=== PATIENT | female | born 1935 | race Caucasian/White ===

== ENCOUNTER → 2016-04-15 | Day surgery (SDC) | payer OTHER ==
[2016-04-11 07:54] VITALS: Ht 149.9 cm; Wt 85.5 kg
[~2016-04-15] VITALS: Ht 149.9 cm; Wt 85.5 kg
[~2016-04-15] MED LIST: ACET500C6 PO; ALBUAER2 INH; ASCO500T3 PO; ASPI81TA28 PO; ATOR-22 PO; ATROPINE SULFATE 0.1 MG/ML 5ML SYR IV PRN; CHOL400C7 PO; CRD4 PO; DILT-117 PO; DOCU100C PO; EpHEDrine SULFATE INJ 50 MG/ML AMP IV PRN; FENTANYL CITRATE INJ 50 MCG/1 ML 2 ML VIAL ONE; HYDC25 PO; LACTATED RINGER'S 1000ML 1,000 ML IV SCH; LEVAAER2 INH; LEVO150T9 PO; LIDOCAINE HCL 1% 20 ML VIAL ONE; LORA0.5T12 PO; MIDAZOLAM HCL 1 MG/ML 2ML VIAL ONE; MULT-190 PO; MULTTAB5 PO; OMEG10007 PO; POTA10CA28 PO; SERT50TA PO
--- NOTE | 2016-04-15 10:30 | History & Physical Bridge - SC ---
H&P Re-Evaluation Bridge Note: I have examined the patient, reviewed the History & Physical and in the interval since the performance of the History & Physical I have noted the following changes of clinical significance: No changes noted
--- NOTE | 2016-04-15 11:35 | Discharge Instructions ---
Discharge Instructions Visit Reason for Visit: Sacroiliitis Discharge Discharge Diagnosis / Problem: low back pain Discharge Goals Goal(s): Decrease discomfort, Improve function Medications Stopped Medications Name(s): ASA last dose Monday Activity Recommendations Activity Limitations: resume your previous activity Anesthesia . Post Anesthesia Instructions: If you have had General Anesthesia or IV Sedation: * Do not drive today. * Resume driving when surgeon permits. * Do not make important decisions or sign legal documents today. * Call surgeon for: 1. Temperature elevations greater than 101 degrees F. 2. Uncontrollable pain. 3. Excessive bleeding. 4. Persistent nausea and vomiting. 5. Medication intolerance (nausea, vomiting or rash). * For nausea and vomiting use only clear liquids such as: tea, soda, bouillon until nausea subsides, then gradually increase diet as tolerated. * If you have any concerns or questions, call your surgeon's office. If physician is unavailable and it is an emergency, call 911 or go to the nearest emergency room. . Diet Recommendations Recommended Home Diet: resume previous diet Procedures Procedures Performed: Right Sacroiliac Cooled Radio Frequency Denervation Pending Studies Studies pending at discharge: no Medical Emergencies . Who to Call and When: Medical Emergencies: If at any time you feel your situation is an emergency, please call 911 immediately. . Non-Emergent Contact Non-Emergency issues call your: Specialist . . "Provider Documentation" section prepared by Alexander Booker.
[2016-04-15 11:45] VITALS: TEMP 36.6
--- NOTE | 2016-04-15 11:57 | Anesthesia Progress Nt - [facility] ---
Anesthesia Post Op Note Date & Time Apr 15, 2016 at 11:56 Vital Signs Pain Intensity: 0 Vital Signs Past 12 Hours Date Time Temp Pulse Resp B/P Pulse Ox O2 Delivery O2 Flow Rate FiO2 04/15/16 11:45 36.6 58 16 167/70 94 Room Air 04/15/16 10:31 183/90 04/15/16 09:13 36.4 65 16 170/104 96 Room Air Notes Mental Status: alert / awake / arousable, participated in evaluation Pt Amnestic to Procedure: Yes Nausea / Vomiting: adequately controlled Pain: adequately controlled Airway Patency, RR, SpO2: stable & adequate BP & HR: stable & adequate Hydration State: stable & adequate Anesthetic Complications: no major complications apparent
[2016-04-15 12:04] VITALS: BP 144/72; PULSE 62; O2SAT 99
--- NOTE | 2016-04-15 12:14 | OPERATIVE REPORT ---
DATE OF OPERATION: 04/25/2016 PREOPERATIVE DIAGNOSIS: Right sacroiliitis, history of a lumbar fusion L5 through S1. POSTOPERATIVE DIAGNOSIS: Same. PROCEDURE: Right sacroiliac joint cooled denervation procedure under fluoroscopic guidance. SURGEON: Dr. Alexander Booker. INDICATIONS: The patient is an 81-year-old white female who receives sacroiliac joint cooled denervations with great success. The last one was done in January more than a year ago. She reports that her pain is returning and is problematic to her and she presents today for a denervation procedure to provide her with relief of right-sided sacroiliac pain. PHYSICAL EXAMINATION: Pleasant female seated comfortably. She has point tenderness to palpation of her right SI joint. This is exacerbated with extension. She has normal motor and sensory examination with negative seated straight leg raises. CONSENT: Verbal and written consent was obtained from the patient and risks include but are not limited to abscess, allergic reaction, denervation. She wishes to proceed. PROCEDURE: The patient was taken back to the special procedures room of [facility]. She was maintained in a prone position. Backside was cleansed with Betadine x3 and a dry sterile dressing was applied. Fluoroscope was used to identify the right sacroiliac joint. It was actually done in an oblique fashion to deal with the artifact of the fusion. She had conscious sedation throughout the procedure and was comfortable, was able to converse freely. Overlying skin of this S1 foramen was done with 3 mL of 1% lidocaine. A denervation needle was then placed contacting the right sacral ala. A total of 8 sites were done. The right sacral ala, the superior lateral aspect of S1, the lateral aspect of S1, the inferior lateral aspect of S1, the superior lateral aspect of S2, the lateral aspect of S2, the lateral inferior aspect of S2 and the superior lateral aspect of S3. These were all denervated 2 minutes and 30 seconds with cooled denervation well tolerated. Additional anesthetization was done on the last 2 as they were too inferior to be reached with the single needle as it was changed out during denervation 7 and 8. DISPOSITION: 1. The patient is taken out into the discharge recovery area where she will be discharged home once discharge criteria have been met. 2. Follow up in the [facility] office in 2-4 weeks. I attest to the content of the Intraoperative Record and any orders documented therein. Any exceptio ns are noted below.
== END | disposition home or self-care (01) ==
LOC: X.SURG 09:02
PROVIDERS: ATTEND Physical Medicine & Rehabilitation
DX: M46.1 Sacroiliitis, not elsewhere classified (principal); Z98.1 Arthrodesis status

== ENCOUNTER → 2016-05-27 | Outpatient (CLI) | payer OTHER ==
[~2016-05-27] MED LIST changes: -ATROPINE SULFATE 0.1 MG/ML 5ML SYR IV PRN; -EpHEDrine SULFATE INJ 50 MG/ML AMP IV PRN; -FENTANYL CITRATE INJ 50 MCG/1 ML 2 ML VIAL ONE; -LACTATED RINGER'S 1000ML 1,000 ML IV SCH; -LIDOCAINE HCL 1% 20 ML VIAL ONE; -MIDAZOLAM HCL 1 MG/ML 2ML VIAL ONE
[2016-05-27 13:45] LABS: ALT/SGPT 20 U/L (12-78); AST/SGOT 17 U/L (15-37); BLOOD UREA NITROGEN 43 mg/dl (7-18); BUN/CREATININE RATIO 28.3 (10-20); CALCIUM 9.7 mg/dl (8.5-10.1); CARBON DIOXIDE 31 mmol/L (21-32); CHLORIDE 102 mmol/L (98-107); GLUCOSE 75 mg/dl (70-99); POTASSIUM 4.2 mmol/L (3.5-5.1); SODIUM 141 mmol/L (136-145)
[2016-05-27 13:48] LABS: ALB/GLOB RATIO 1.1 (0.9-2); ALKALINE PHOSPHATASE 75 U/L (45-117)
== END | disposition home or self-care (01) ==
LOC: C.LAB 11:45
PROVIDERS: ATTEND Urology
DX: C64.9 Malignant neoplasm of unspecified kidney, except renal pelvis (principal)

== ENCOUNTER → 2016-05-30 | Outpatient (CLI) | payer OTHER ==
[2016-05-30 10:14] LABS: HEMATOCRIT 41.2 % (37-47); MEAN CELL VOLUME 87.7 fL (80-100); MEAN CORPUSCULAR HEMOGLOBIN 30.4 pg (25-34); MEAN CORPUSCULAR HGB CONC 34.7 g/dl (32-36); MEAN PLATELET VOLUME 10.2 fL (7.4-10.4); PLATELET COUNT 186 K/uL (130-400); WHITE BLOOD COUNT 7.85 K/uL (4.8-10.8)
[2016-05-30 10:23] LABS: ALT/SGPT 22 U/L (12-78); BLOOD UREA NITROGEN 34 mg/dl (7-18); BUN/CREATININE RATIO 22.9 (10-20); CARBON DIOXIDE 31 mmol/L (21-32); CHLORIDE 105 mmol/L (98-107); GLUCOSE 83 mg/dl (70-99); POTASSIUM 3.8 mmol/L (3.5-5.1); SODIUM 142 mmol/L (136-145)
[2016-05-30 10:26] LABS: CHOLESTEROL/HDL RATIO 3.7
[2016-05-30 10:34] LABS: ALB/GLOB RATIO 1.2 (0.9-2); ALKALINE PHOSPHATASE 68 U/L (45-117); AST/SGOT 13 U/L (15-37)
== END | disposition home or self-care (01) ==
LOC: C.LAB 09:20
PROVIDERS: ATTEND Internal Medicine Cardiovascular Disease
DX: E03.9 Hypothyroidism, unspecified (principal); E78.00 Pure hypercholesterolemia, unspecified; I10 Essential (primary) hypertension; R53.83 Other fatigue

== ENCOUNTER → 2016-05-31 | Outpatient (CLI) | payer OTHER ==
[2016-05-31 18:04] LABS: THYROID STIMULATING HORMONE 2.73 uIu/ml (0.300-4.500)
== END | disposition home or self-care (01) ==
LOC: C.LABBFT 14:45
PROVIDERS: ATTEND Physician Assistant Medical
DX: E03.9 Hypothyroidism, unspecified (principal)

== ENCOUNTER → 2016-06-14 | Outpatient (CLI) | payer OTHER ==
--- NOTE | 2016-06-14 09:11 | DIAGNOSTIC IMAGING REPORT ---
CHEST 2 VIEWS ROUTINE CLINICAL HISTORY: C64.9 Renal cell [id number] COMPARISON STUDY: 02/07/2015 FINDINGS: Chronic fibrotic change left base. Lungs otherwise are clear. Diaphragms are smooth. IMPRESSION: Chronic change. No acute process. Electronically signed by: Immanuel Bravo M.D. 06/14/2016 9:09 AM Dictated Date/Time: 06/14/2016 9:08 AM
--- NOTE | 2016-06-14 10:10 | DIAGNOSTIC IMAGING REPORT ---
MRI OF THE ABDOMEN WITHOUT IV CONTRAST CLINICAL HISTORY: Follow-up renal cell carcinoma. COMPARISON STUDY: Abdominal MRI dated 05/14/2014. Abdominal CT dated 05/08/2013. TECHNIQUE: MRI of the abdomen is performed transverse T1 and T2-weighted sequences in the axial and coronal planes. IV contrast was not administered for this examination. FINDINGS: Lower chest: Trace pleural effusions are identified. The heart is enlarged and without pericardial effusion. Liver: The liver is normal in size, contour, and signal intensity. Minimal central intrahepatic biliary ductal dilatation is identified. Gallbladder: Surgically absent. Spleen: Normal in size and signal intensity. Pancreas: Mildly atrophic an otherwise normal as imaged. Adrenal glands: Unremarkable. Kidneys: The left kidney is surgically absent. There is no evidence of recurrent or residual soft tissue lesion in the left renal fossa. The right kidney demonstrates cortical atrophy and is without hydronephrosis. There are numerous complex renal lesions measuring up to 2.4 cm. These are similar in appearance to prior studies and likely represent complex/hemorrhagic cysts. No nodular or soft tissue component is suspected. Abdominal aorta: Normal in course and caliber. Bowel: Visualized portions of the small bowel and colon show no evidence of obstruction. Peritoneum: There is no abdominal ascites. Lymphadenopathy: None. Skeletal structures: No destructive bony lesion is suspected. Fusion hardware is noted in the lumbar spine. IMPRESSION: 1. Status post left nephrectomy. There is no evidence of recurrent or metastatic disease in the abdomen. 2. Numerous complex right renal lesions are identified and are overall similar in appearance to the 05/14/2014 examination. Although incompletely characterized without IV contrast these likely represent complex/hemorrhagic cysts. 3. Cardiomegaly and trace pleural effusions. Electronically signed by: Brock Lou M.D. 06/14/2016 10:08 AM Dictated Date/Time: 06/14/2016 10:01 AM
== END | disposition home or self-care (01) ==
LOC: C.MRIBC 08:44
PROVIDERS: ATTEND Urology
DX: C64.9 Malignant neoplasm of unspecified kidney, except renal pelvis (principal); I51.7 Cardiomegaly

== ENCOUNTER → 2016-07-21 | Outpatient (CLI) | payer OTHER ==
--- NOTE | 2016-07-21 13:07 | MAMMOGRAPHY REPORT ---
BILATERAL DIGITAL SCREENING MAMMOGRAM WITH CAD: 07/21/2016 CLINICAL HISTORY: Routine screening. Patient has no complaints. TECHNIQUE: Current study was also evaluated with a Computer Aided Detection (CAD) system. Bilatera l CC and MLO views were obtained. COMPARISON: Comparison is made to exams dated: 07/17/2015 mammogram, 05/30/2014 mammogram, 03/29/2013 mammogram, 03/28/2012 mammogram, 03/23/2011 mammogram, and 03/22/2010 mammogram - [facility]. BREAST COMPOSITION: There are scattered areas of fibroglandular density in both breasts. FINDINGS: No suspicious masses, calcifications, or areas of architectural distortion are noted in e ither breast. There has been no significant interval change compared to prior exams. Scattered bilat eral benign-appearing calcifications are not significantly changed. Bilateral asymmetries are stabl e. IMPRESSION: ACR BI-RADS CATEGORY 2: BENIGN There is no mammographic evidence of malignancy. A 1 year screening mammogram is recommended. The p atient will receive written notification of the results. Approximately 10% of breast cancers are not detected with mammography. A negative mammographic repor t should not delay biopsy if a clinically suggestive mass is present. Laya Coley M.D. /:07/21/2016 12:23:30 Tool Builder: Grace GOMEZ)(M), [facility] letter sent: Normal 1/2 BI-RADS Code: ACR BI-RADS Category 2: Benign
== END | disposition home or self-care (01) ==
LOC: C.MAMM 11:20
PROVIDERS: ATTEND Internal Medicine
DX: Z12.31 Encounter for screening mammogram for malignant neoplasm of breast (principal)

== ENCOUNTER → 2016-08-04 | Outpatient (CLI) | payer OTHER ==
[2016-08-04 17:49] LABS: URINE APPEARANCE CLOUDY (CLEAR); URINE BILIRUBIN NEG (NEG); URINE COLOR DK YELLOW; URINE EPITHELIAL CELL AUTO >30 /lpf (0-5); URINE NITRITE POS (NEG); URINE PH 5.5 (4.5-7.5); URINE SPECIFIC GRAVITY 1.021 (1.000-1.030); UROBILINOGEN NEG (NEG)
[2016-08-04 17:51] LABS: MANUAL MICROSCOPIC REQUIRED? NO; REVIEW REQ? NO
== END | disposition home or self-care (01) ==
LOC: C.LABBFT 15:12
PROVIDERS: ATTEND Physician Assistant Medical
DX: R39.9 Unspecified symptoms and signs involving the genitourinary system (principal); N39.0 Urinary tract infection, site not specified

== ENCOUNTER → 2016-08-15 | Day surgery (SDC) | payer OTHER ==
[2016-08-05 09:16] VITALS: Ht 149.9 cm; Wt 85.5 kg
[~2016-08-15] VITALS: Ht 149.9 cm; Wt 85.5 kg
[~2016-08-15] MED LIST changes: +500ML BSS 0.3ML EPI 1:1000PF IRRIG ONE; +ACETAMINOPHEN 325 MG TAB PO PRN; +AMVISC PLUS 0.8ML SYRINGE INT OCU ONE; +ATROPINE SULFATE 0.1 MG/ML 5ML SYR IV PRN; +BRIMONIDINE TART 0.2% OP SOLN PER DROP CHARGE ONE; +BSS FLUSH ONE; +ENDOCOAT 0.85ML SYRINGE INT OCU ONE; +EpHEDrine SULFATE INJ 50 MG/ML AMP IV PRN; +EpINEphrine INJ 1MG/ML AMP 1 MG/ML AMP ONE; +HydrALAZINE HCL 20 MG/ML VIAL ONE; +LACTATED RINGER'S 1000ML 500 ML IV SCH; +LIDOCAINE 4% OP SOLN DROP CHARGE ONE; +LIDOCAINE 4% OP SOLN DROP CHARGE OPR SCH; +LIDOCAINE HCL 1% MPF 2 ML VIAL ONE; +MIDAZOLAM HCL 1 MG/ML 2ML VIAL ONE; +MOXIFLOXACIN OPH SOLN PER DROP CHARGE ONE; +POVIDONE-IODINE OP SOLN 30 ML BTL ONE; +PROPARACAINE 0.5% OP SOLN PER DROP CHARGE OPR SCH; +TOBRAMYCIN/DEXAMETHASONE OPH OINT PER APPLN CHARGE ONE
[2016-08-15] MEDS: PHENYLEPHRINE HCL 2.5% OP SOLN PER DROP CHARGE OPR SCH ×2 (08:45→08:51)
[2016-08-15] MEDS: TROPICAMIDE 1% OP SOLN PER DROP CHARGE OPR SCH ×2 (08:47→08:53)
[2016-08-15] MEDS: CYCLOPENTOLATE HCL 1% OP SOLN PER DROP CHARGE OPR SCH ×2 (08:48→08:54)
[2016-08-15] MEDS: KETOROLAC 0.5% OP SOLN PER DROP CHARGE OPR SCH ×2 (08:50→08:56)
[2016-08-15] MEDS: MOXIFLOXACIN OPH SOLN PER DROP CHARGE OPR SCH ×2 (08:51→09:07)
--- NOTE | 2016-08-15 10:14 | [facility] Post Operative Brief Note ---
Immediate Operative Summary Operative Date Aug 15, 2016. Pre-Operative Diagnosis Cataract right eye Post-Operative Diagnosis same Procedure(s) Performed Right Cataract Phacoemulsification With Intraocular Lens Implant Surgeon Dr Us Aquatics Instructor Surgeon(s) 0 Estimated Blood Loss 0 Findings cataract right eye Specimens 0 Complication(s) None Disposition Recovery Room / PACU
--- NOTE | 2016-08-15 10:14 | Discharge Instructions-SurgCtr ---
Discharge Instructions Date of Service Aug 15, 2016. Visit Reason for Visit: Right Cataract Discharge Discharge Diagnosis / Problem: cataract right eye Discharge Goals Goal(s): Improve function Activity Recommendations Activity Limitations: per Instructions/Follow-up section Lifting Limitations: no more than 5 pounds Anesthesia . Post Anesthesia Instructions: If you have had General Anesthesia or IV Sedation: * Do not drive today. * Resume driving when surgeon permits. * Do not make important decisions or sign legal documents today. * Call surgeon for: 1. Temperature elevations greater than 101 degrees F. 2. Uncontrollable pain. 3. Excessive bleeding. 4. Persistent nausea and vomiting. 5. Medication intolerance (nausea, vomiting or rash). * For nausea and vomiting use only clear liquids such as: tea, soda, bouillon until nausea subsides, then gradually increase diet as tolerated. * If you have any concerns or questions, call your surgeon's office. If physician is unavailable and it is an emergency, call 911 or go to the nearest emergency room. . Instructions / Follow-Up Instructions / Follow-Up ACTIVITY RECOMMENDATIONS: * Light activities * You may walk outside, read, watch television. * Mild irritation and blurred vision are common for the first few days, redness around the white part of the eye is common. MEDICATIONS: Resume previous medications unless instructed otherwise by your surgeon. Eye drops (today and tomorrow): Cipro - one drop in operative eye every 2 hours while awake Prednisolone 1% - one drop in operative eye every 2 hours while awake Bromfenac - one drop in operative eye once daily SPECIAL CARE INSTRUCTIONS: * If any problems or concerns, please call Dr. Us's office at . * Keep plastic shield taped over eye to sleep at night. * Keep plastic shield taped over eye except to administer eye drops. * Keep plastic shield on until office visit the following day. FOLLOW UP VISIT: Follow-up with Dr. Us in the [place] office as scheduled. If not already scheduled, please call the office at . Diet Recommendations Home Diet: resume previous diet Procedures Procedures Performed: Right Cataract Phacoemulsification With Intraocular Lens Implant Pending Studies Studies pending at discharge: no Medical Emergencies . Who to Call and When: Medical Emergencies: If at any time you feel your situation is an emergency, please call 911 immediately. . Non-Emergent Contact Non-Emergency issues call your: Toe Pounder . . "Provider Documentation" section prepared by Isai Us. .
[2016-08-15 10:16] VITALS: TEMP 37
--- NOTE | 2016-08-15 10:22 | OPERATIVE REPORT ---
DATE OF OPERATION: 08/15/2016 PREOPERATIVE DIAGNOSIS: Cataract, right eye. POSTOPERATIVE DIAGNOSIS: Cataract, right eye. PROCEDURE: Phacoemulsification cataract extraction with intraocular lens placement, right eye. SURGEON: Dr. Us. COMPLICATIONS: None. ESTIMATED BLOOD LOSS: None. ANESTHESIA: Topical with sedation. OPERATION AND FINDINGS: After informed consent was obtained in the holding area the patient was wheeled back to the Operating Room where cardiac monitoring leads and oxygen by nasal cannula was administered by Anesthesia. Gentle IV sedation was given, and the patient's right eye was prepped and draped in usual sterile fashion. A wire lid speculum was placed into the right eye and the operating microscope was swung into position. Using 0.12 forceps and a Supersharp blade a paracentesis port was made 3 o'clock hours away from the 9 o'clock position of patient's right eye. 1% non-preserved Lidocaine was then injected into the anterior chamber for anesthesia. A 2.2 mm keratotome blade was then used to make a shelved clear corneal incision at the 9 o'clock position of her right eye. Amvisc was injected into the anterior chamber and a cystotome and Utrata forceps were used to perform a curvilinear capsulorrhexis. BSS on a hydrodissection cannula was used to hydrodissect the lens nucleus away from the capsular bag. The phacoemulsification handpiece was then used in a stop and chop fashion to remove the lens nucleus. The irrigation and aspiration handpiece was then used to remove the residual cortical material. Amvisc was injected into the capsular bag and anterior chamber and a Bausch & Lomb MX60, 21.5 Diopter intraocular lens was injected into the capsular bag. Irrigation and aspiration handpiece was used to remove the residual viscoelastic material. The wounds were hydrated and noted to be watertight. The wire lid speculum was removed from the eye. Vigamox, Brimonidine, and TobraDex ointment were placed on the eye and it was shielded. It should be noted that EndoCoat was used during the case to protect the cornea endothelium. DISPOSITION: The patient tolerated the procedure well and was wheeled to the post anesthesia care unit in stable condition. I attest to the content of the Intraoperative Record and any orders documented therein. Any exceptions are noted below. I attest to the content of the Intraoperative Record and any orders documented therein. Any exception s are noted below.
--- NOTE | 2016-08-15 10:26 | Anesthesia Progress Nt - [facility] ---
Anesthesia Post Op Note Date & Time Aug 15, 2016 at 10:25 Vital Signs Pain Intensity: 0 Vital Signs Past 12 Hours Date Time Temp Pulse Resp B/P (MAP) Pulse Ox O2 Delivery O2 Flow Rate FiO2 08/15/16 10:16 37.0 62 16 168/83 (111) 93 Room Air 08/15/16 08:42 184/102 (129) 08/15/16 08:34 36.4 60 18 204/117 (146) 94 Room Air Notes Mental Status: alert / awake / arousable, participated in evaluation Pt Amnestic to Procedure: Yes Nausea / Vomiting: adequately controlled Pain: adequately controlled Airway Patency, RR, SpO2: stable & adequate BP & HR: stable & adequate Hydration State: stable & adequate Anesthetic Complications: no major complications apparent
[2016-08-15 10:32] VITALS: BP 167/88; PULSE 57; O2SAT 92
== END | disposition home or self-care (01) ==
LOC: X.SURG 08:21
PROVIDERS: ATTEND Ophthalmology
DX: H26.9 Unspecified cataract (principal); I12.9 Hypertensive chronic kidney disease with stage 1 through stage 4 chronic kidney disease, or unspecified chronic kidney disease; N18.9 Chronic kidney disease, unspecified; E66.9 Obesity, unspecified; Z88.2 Allergy status to sulfonamides; Z88.1 Allergy status to other antibiotic agents; J45.909 Unspecified asthma, uncomplicated; Z68.43 Body mass index [BMI] 50.0-59.9, adult; Z90.89 Acquired absence of other organs; Z90.710 Acquired absence of both cervix and uterus; Z98.890 Other specified postprocedural states; Z96.653 Presence of artificial knee joint, bilateral; Z85.528 Personal history of other malignant neoplasm of kidney

== ENCOUNTER → 2016-08-29 | Day surgery (SDC) | payer OTHER ==
[2016-08-25 07:49] VITALS: Ht 149.9 cm; Wt 85.5 kg
[~2016-08-29] VITALS: Ht 149.9 cm; Wt 85.5 kg
[~2016-08-29] MED LIST changes: -HydrALAZINE HCL 20 MG/ML VIAL ONE; +LIDOCAINE 4% OP SOLN DROP CHARGE OPL SCH; -LIDOCAINE 4% OP SOLN DROP CHARGE OPR SCH; +PROPARACAINE 0.5% OP SOLN PER DROP CHARGE OPL SCH; -PROPARACAINE 0.5% OP SOLN PER DROP CHARGE OPR SCH
[2016-08-29] MEDS: PHENYLEPHRINE HCL 2.5% OP SOLN PER DROP CHARGE OPL SCH ×2 (08:42→08:46)
[2016-08-29] MEDS: TROPICAMIDE 1% OP SOLN PER DROP CHARGE OPL SCH ×2 (08:43→08:48)
[2016-08-29] MEDS: CYCLOPENTOLATE HCL 1% OP SOLN PER DROP CHARGE OPL SCH ×2 (08:43→08:49)
[2016-08-29] MEDS: MOXIFLOXACIN OPH SOLN PER DROP CHARGE OPL SCH ×2 (08:45→08:51)
[2016-08-29] MEDS: KETOROLAC 0.5% OP SOLN PER DROP CHARGE OPL SCH ×2 (08:45→08:50)
--- NOTE | 2016-08-29 10:01 | Discharge Instructions-SurgCtr ---
Discharge Instructions Date of Service Aug 29, 2016. Visit Reason for Visit: Cataract Left Eye Discharge Discharge Diagnosis / Problem: cataract left eye Discharge Goals Goal(s): Improve function Activity Recommendations Activity Limitations: per Instructions/Follow-up section Lifting Limitations: no more than 5 pounds Anesthesia . Post Anesthesia Instructions: If you have had General Anesthesia or IV Sedation: * Do not drive today. * Resume driving when surgeon permits. * Do not make important decisions or sign legal documents today. * Call surgeon for: 1. Temperature elevations greater than 101 degrees F. 2. Uncontrollable pain. 3. Excessive bleeding. 4. Persistent nausea and vomiting. 5. Medication intolerance (nausea, vomiting or rash). * For nausea and vomiting use only clear liquids such as: tea, soda, bouillon until nausea subsides, then gradually increase diet as tolerated. * If you have any concerns or questions, call your surgeon's office. If physician is unavailable and it is an emergency, call 911 or go to the nearest emergency room. . Instructions / Follow-Up Instructions / Follow-Up ACTIVITY RECOMMENDATIONS: * Light activities * You may walk outside, read, watch television. * Mild irritation and blurred vision are common for the first few days, redness around the white part of the eye is common. MEDICATIONS: Resume previous medications unless instructed otherwise by your surgeon. Eye drops (today and tomorrow): Cipro - one drop in operative eye every 2 hours while awake Prednisolone 1% - one drop in operative eye every 2 hours while awake Bromfenac - one drop in operative eye once daily SPECIAL CARE INSTRUCTIONS: * If any problems or concerns, please call Dr. Us's office at . * Keep plastic shield taped over eye to sleep at night. * Keep plastic shield taped over eye except to administer eye drops. * Keep plastic shield on until office visit the following day. FOLLOW UP VISIT: Follow-up with Dr. Us in the [place] office as scheduled. If not already scheduled, please call the office at . Diet Recommendations Home Diet: resume previous diet Procedures Procedures Performed: Left Cataract Phacoemulsification With Intraocular Lens Implant Pending Studies Studies pending at discharge: no Medical Emergencies . Who to Call and When: Medical Emergencies: If at any time you feel your situation is an emergency, please call 911 immediately. . Non-Emergent Contact Non-Emergency issues call your: Chief Construction Inspector . . "Provider Documentation" section prepared by Isai Us. .
--- NOTE | 2016-08-29 10:01 | [facility] Post Operative Brief Note ---
Immediate Operative Summary Operative Date Aug 29, 2016. Pre-Operative Diagnosis Cataract Left Eye Post-Operative Diagnosis Same Procedure(s) Performed Left Cataract Phacoemulsification With Intraocular Lens Implant Surgeon Dr. Us Java Lead Architect Surgeon(s) None Estimated Blood Loss 0 Findings cataract left eye Specimens 0 Complication(s) None Disposition Recovery Room / PACU
[2016-08-29 10:15] VITALS: TEMP 36.5
[2016-08-29 10:26] VITALS: BP 173/85; PULSE 57; O2SAT 95
--- NOTE | 2016-08-29 10:28 | Anesthesia Progress Nt - [facility] ---
Anesthesia Post Op Note Date & Time Aug 29, 2016 at 10:28 Vital Signs Pain Intensity: 0 Vital Signs Past 12 Hours Date Time Temp Pulse Resp B/P (MAP) Pulse Ox O2 Delivery O2 Flow Rate FiO2 08/29/16 10:15 36.5 60 16 176/90 (118) 94 Room Air 08/29/16 08:32 36.4 63 18 181/103 (129) 93 Room Air Notes Mental Status: alert / awake / arousable, participated in evaluation Pt Amnestic to Procedure: Yes Nausea / Vomiting: adequately controlled Pain: adequately controlled Airway Patency, RR, SpO2: stable & adequate BP & HR: stable & adequate Hydration State: stable & adequate Anesthetic Complications: no major complications apparent
--- NOTE | 2016-08-29 10:38 | OPERATIVE REPORT ---
DATE OF OPERATION: 08/29/2016 PREOPERATIVE DIAGNOSIS: Cataract, left eye. POSTOPERATIVE DIAGNOSIS: Cataract, left eye. PROCEDURE: Phacoemulsification cataract extraction with intraocular lens placement, left eye. SURGEON: Dr. Us. COMPLICATIONS: None. ESTIMATED BLOOD LOSS: None. ANESTHESIA: Topical with sedation. OPERATION AND FINDINGS: After informed consent was obtained in the holding area the patient was wheeled back to the Operating Room where cardiac monitoring leads and oxygen by nasal cannula was administered by Anesthesia. Gentle IV sedation was given, and the patient's left eye was prepped and draped in usual sterile fashion. A wire lid speculum was placed into the left eye and the operating microscope was swung into position. Using 0.12 forceps and a Supersharp blade a paracentesis port was made 3 o'clock hours away from the 3 o'clock position of patient's left eye. 1% non-preserved Lidocaine was then injected into the anterior chamber for anesthesia. A 2.2 mm keratotome blade was then used to make a shelved clear corneal incision at the 3 o'clock position of her left eye. Amvisc was injected into the anterior chamber and a cystotome and Utrata forceps were used to perform a curvilinear capsulorrhexis. BSS on a hydrodissection cannula was used to hydrodissect the lens nucleus away from the capsular bag. The phacoemulsification handpiece was then used in a stop and chop fashion to remove the lens nucleus. The irrigation and aspiration handpiece was then used to remove the residual cortical material. Amvisc was injected into the capsular bag and anterior chamber and a Bausch & Lomb MX60 22.0 Diopter intraocular lens was injected into the capsular bag. Irrigation and aspiration handpiece was used to remove the residual viscoelastic material. The wounds were hydrated and noted to be watertight. The wire lid speculum was removed from the eye. Vigamox, Brimonidine, and TobraDex ointment were placed on the eye and it was shielded. It should be noted that EndoCoat was used during the case to protect the cornea endothelium. DISPOSITION: The patient tolerated the procedure well and was wheeled to the post anesthesia care unit in stable condition. I attest to the content of the Intraoperative Record and any orders documented therein. Any exceptions are noted below. I attest to the content of the Intraoperative Record and any orders documented therein. Any exception s are noted below.
== END | disposition home or self-care (01) ==
LOC: X.SURG 08:20
PROVIDERS: ATTEND Ophthalmology
DX: H25.12 Age-related nuclear cataract, left eye (principal); I10 Essential (primary) hypertension; E78.00 Pure hypercholesterolemia, unspecified; C64.9 Malignant neoplasm of unspecified kidney, except renal pelvis; J45.909 Unspecified asthma, uncomplicated; Z79.899 Other long term (current) drug therapy

== ENCOUNTER → 2016-10-13 | Outpatient (CLI) | payer OTHER ==
[~2016-10-13] MED LIST changes: -500ML BSS 0.3ML EPI 1:1000PF IRRIG ONE; -ACETAMINOPHEN 325 MG TAB PO PRN; -AMVISC PLUS 0.8ML SYRINGE INT OCU ONE; -ATROPINE SULFATE 0.1 MG/ML 5ML SYR IV PRN; -BRIMONIDINE TART 0.2% OP SOLN PER DROP CHARGE ONE; -BSS FLUSH ONE; -ENDOCOAT 0.85ML SYRINGE INT OCU ONE; -EpHEDrine SULFATE INJ 50 MG/ML AMP IV PRN; -EpINEphrine INJ 1MG/ML AMP 1 MG/ML AMP ONE; -LACTATED RINGER'S 1000ML 500 ML IV SCH; -LIDOCAINE 4% OP SOLN DROP CHARGE ONE; -LIDOCAINE 4% OP SOLN DROP CHARGE OPL SCH; -LIDOCAINE HCL 1% MPF 2 ML VIAL ONE; -MIDAZOLAM HCL 1 MG/ML 2ML VIAL ONE; -MOXIFLOXACIN OPH SOLN PER DROP CHARGE ONE; -POVIDONE-IODINE OP SOLN 30 ML BTL ONE; -PROPARACAINE 0.5% OP SOLN PER DROP CHARGE OPL SCH; -TOBRAMYCIN/DEXAMETHASONE OPH OINT PER APPLN CHARGE ONE
[2016-10-13 17:56] LABS: URINE APPEARANCE CLOUDY (CLEAR); URINE BILIRUBIN NEG (NEG); URINE COLOR DK YELLOW; URINE EPITHELIAL CELL AUTO >30 /lpf (0-5); URINE NITRITE NEG (NEG); URINE SPECIFIC GRAVITY 1.025 (1.000-1.030); UROBILINOGEN NEG (NEG)
[2016-10-13 17:59] LABS: MANUAL MICROSCOPIC REQUIRED? NO; REVIEW REQ? YES
== END | disposition home or self-care (01) ==
LOC: C.LABBFT 10:29
PROVIDERS: ATTEND Physician Assistant Medical
DX: R39.9 Unspecified symptoms and signs involving the genitourinary system (principal)

== ENCOUNTER → 2016-11-10 | Outpatient (CLI) | payer OTHER ==
[2016-11-10 12:38] LABS: MANUAL MICROSCOPIC REQUIRED? YES; URINE APPEARANCE CLOUDY (CLEAR); URINE BILIRUBIN NEG (NEG); URINE COLOR YELLOW; URINE NITRITE POS (NEG); URINE PH 6.5 (4.5-7.5); UROBILINOGEN NEG (NEG)
[2016-11-10 12:55] LABS: REVIEW REQ? NO
[2016-11-10 12:59] LABS: URINE BACTERIA 2+ (NEG); URINE WBC >30 /hpf (0-5)
[2016-11-10 13:03] LABS: URINE RBC 0-4 /hpf (0-4)
== END | disposition home or self-care (01) ==
LOC: C.LABBFT 08:25
PROVIDERS: ATTEND Physician Assistant Medical
DX: R39.9 Unspecified symptoms and signs involving the genitourinary system (principal)

== ENCOUNTER → 2016-12-23 | Outpatient (CLI) | payer OTHER | END | disposition home or self-care (01) | LOC: C.PAPS 14:22 | PROVIDERS: ATTEND Obstetrics & Gynecology | DX: Z01.419 Encounter for gynecological examination (general) (routine) without abnormal findings (principal) ==

== ENCOUNTER → 2017-01-11 | Outpatient (CLI) | payer OTHER ==
--- NOTE | 2017-01-11 11:58 | DIAGNOSTIC IMAGING REPORT ---
R SHOULDER MIN 2 VIEWS ROUTINE CLINICAL HISTORY: M25.511 pain COMPARISON: None. DISCUSSION: Moderate generalized degenerative changes acromioclavicular as well as glenohumeral joints. No evidence for fracture or dislocation. No abnormal soft tissue calcifications. Mild degenerative peripheral osteophytic reaction of the humeral head. There is no evidence for soft tissue swelling. IMPRESSION: Moderate degenerative change. No acute process. The above report was generated using voice recognition software. It may contain grammatical, syntax or spelling errors. Electronically signed by: Immanuel Bravo M.D. 01/11/2017 11:57 AM Dictated Date/Time: 01/11/2017 11:56 AM
== END | disposition home or self-care (01) ==
LOC: C.RAD1850 11:30
PROVIDERS: ATTEND Physician Assistant Medical
DX: M25.511 Pain in right shoulder (principal); M89.8X1 Other specified disorders of bone, shoulder

== ENCOUNTER → 2017-04-19 | Outpatient (CLI) | payer OTHER | END | disposition home or self-care (01) | LOC: C.LAB 16:56 | PROVIDERS: ATTEND Internal Medicine | DX: N39.0 Urinary tract infection, site not specified (principal) ==

== ENCOUNTER → 2017-04-28 | Outpatient (CLI) | payer OTHER ==
--- NOTE | 2017-04-28 13:01 | DIAGNOSTIC IMAGING REPORT ---
LUMBAR SPINE RADIOGRAPHS CLINICAL HISTORY: Back pain. COMPARISON: Lumbar spine CT August 21, 2014. FINDINGS: Mild levoscoliosis of the lumbar spine is noted. There is a posterior decompression. Lateral bone graft material is noted. There are bilateral pedicle screws at the L3, L4, L5 and S1 levels. Hardware is intact. There is marked disc space narrowing within multiple levels within the lumbar spine. No fracture or suspicious lesion is present. IMPRESSION: 1. No acute lumbar spine fracture or subluxation. 2. Status post L3-S1 bilateral pedicle screw fusion. 3. Severe multilevel disc space narrowing within the lower thoracic and upper lumbar spine. 4. Mild levoscoliosis of the lumbar spine. Electronically signed by: Stephen Whitehead M.D. 04/28/2017 1:00 PM Dictated Date/Time: 04/28/2017 12:58 PM
== END | disposition home or self-care (01) ==
LOC: C.RDSM 18:00
PROVIDERS: ATTEND Orthopaedic Surgery
DX: M51.25 Other intervertebral disc displacement, thoracolumbar region (principal); M54.9 Dorsalgia, unspecified; Z98.1 Arthrodesis status

== ENCOUNTER → 2017-06-14 | Day surgery (SDC) | payer OTHER ==
[2017-06-13 14:31] VITALS: Ht 149.9 cm; Wt 85.5 kg
[~2017-06-14] VITALS: Ht 149.9 cm; Wt 85.5 kg
[~2017-06-14] MED LIST changes: -ACET500C6 PO; -ALBUAER2 INH; +ATROPINE SULFATE 0.1 MG/ML 5ML SYR IV PRN; -CRD4 PO; +DOXA4TAB2 PO; +EpHEDrine SULFATE INJ 50 MG/ML AMP IV PRN; +FENTANYL CITRATE INJ 50 MCG/1 ML 2 ML VIAL ONE; -HYDC25 PO; +HYDR25TA4 PO; +LACTATED RINGER'S 1000ML 1,000 ML IV SCH; -LEVAAER2 INH; +LIDOCAINE HCL 1% 20 ML VIAL ONE; +MIDAZOLAM HCL 1 MG/ML 2ML VIAL ONE; +VNTHFA/IN INH
--- NOTE | 2017-06-14 09:44 | [facility] Post Operative Brief Note ---
Immediate Operative Summary Operative Date Jun 14, 2017. Pre-Operative Diagnosis Post laminectomy syndrome Sacroilitis Hisory fusion Post-Operative Diagnosis Same as pre-op Procedure(s) Performed Right Cooled Sacroiliac Joint Radio Frequency Denervation Surgeon Job Putter Up And Ticket Preparer Surgeon(s) None Estimated Blood Loss Zero Findings Consistent with Post-Op Diagnosis Specimens None Drains None Anesthesia Type MAC Complication(s) none Disposition Disposition:
--- NOTE | 2017-06-14 09:45 | Discharge Instructions ---
Discharge Instructions Date of Service Jun 14, 2017. Visit Reason for Visit: Post Laminectomy Syndrome, Sacroiliitis, Hx Fusion Discharge Discharge Diagnosis / Problem: low back pain Discharge Goals Goal(s): Decrease discomfort, Improve function Activity Recommendations Activity Limitations: resume your previous activity Anesthesia . Post Anesthesia Instructions: If you have had General Anesthesia or IV Sedation: * Do not drive today. * Resume driving when surgeon permits. * Do not make important decisions or sign legal documents today. * Call surgeon for: 1. Temperature elevations greater than 101 degrees F. 2. Uncontrollable pain. 3. Excessive bleeding. 4. Persistent nausea and vomiting. 5. Medication intolerance (nausea, vomiting or rash). * For nausea and vomiting use only clear liquids such as: tea, soda, bouillon until nausea subsides, then gradually increase diet as tolerated. * If you have any concerns or questions, call your surgeon's office. If physician is unavailable and it is an emergency, call 911 or go to the nearest emergency room. . Diet Recommendations Recommended Home Diet: resume previous diet Procedures Procedures Performed: Right Cooled Sacroiliac Joint Radio Frequency Denervation Pending Studies Studies pending at discharge: no Medical Emergencies . Who to Call and When: Medical Emergencies: If at any time you feel your situation is an emergency, please call 911 immediately. . Non-Emergent Contact Non-Emergency issues call your: Specialist . . "Provider Documentation" section prepared by Alexander Booker. .
--- NOTE | 2017-06-14 09:49 | Anesthesia Progress Nt - [facility] ---
Anesthesia Post Op Note Date & Time Jun 14, 2017 at 09:48 Vital Signs Pain Intensity: 2 Vital Signs Past 12 Hours Date Time Temp Pulse Resp B/P (MAP) Pulse Ox O2 Delivery O2 Flow Rate FiO2 06/14/17 08:47 184/77 (112) 06/14/17 08:18 36.7 60 18 173/100 (124) 95 Room Air Notes Mental Status: alert / awake / arousable, participated in evaluation Pt Amnestic to Procedure: Yes Nausea / Vomiting: adequately controlled Pain: adequately controlled Airway Patency, RR, SpO2: stable & adequate BP & HR: stable & adequate Hydration State: stable & adequate Anesthetic Complications: no major complications apparent
[2017-06-14 10:11] VITALS: BP 169/95; PULSE 55; O2SAT 93
--- NOTE | 2017-06-14 10:58 | OPERATIVE REPORT ---
DATE OF OPERATION: 06/14/2017 PREOPERATIVE DIAGNOSIS: L5-S1 fusion with underlying right sacroiliitis. POSTOPERATIVE DIAGNOSIS: L5-S1 fusion with underlying right sacroiliitis. PROCEDURE: Right sacroiliac cooled radiofrequency denervation. INDICATIONS: The patient is an 82-year-old white female who has responded very favorably to SI joint denervations in the past, last one was 14 months ago; however, the pain has started to return to be problematic to her and presents today for denervation. PHYSICAL EXAMINATION: Pleasant female seated comfortably in no apparent distress. Right SI joint was palpated and noted to be very tender, worse with extension. She has normal motor and sensory exam with a positive modified Antione maneuver. CONSENT: Verbal and written consent was obtained from the patient. Risks and benefits were reviewed. Risks include but are not limited to abscess and allergic reaction in cooled denervation. The patient wishes to proceed. PROCEDURE: The patient was taken back into the OR #1 of the [facility], where she was maintained in a prone position. She had conscious sedation throughout the procedure but was able to converse freely. Backside was cleansed with Betadine x3 and a dry sterile dressing was applied. Fluoroscope was used to identify the S1 foramen. Overlying skin lateral to the S1 foramen was anesthetized with 7 mL of lidocaine 1% with a 25 gauge 1.5-inch needle. The cooled needle was then placed at 8 different targets. The lateral aspect of S1, the superior lateral aspect of S1, the right sacral ala, the right inferior lateral aspect of S1, the right superior lateral aspect of S2, the lateral aspect of S2, and the lateral inferior aspect of S2, and lastly the superior lateral aspect of S3. Denervation for 2 minutes and 30 seconds, 60 degrees Celsius at each site. It was well tolerated. DISPOSITION: 1. The patient was taken back into the discharge area, where she will be discharged home once discharge criteria have been met. 2. Follow up in the [facility] office in 4 weeks' time. I attest to the content of the Intraoperative Record and any orders documented therein. Any exception s are noted below.
== END | disposition home or self-care (01) ==
LOC: X.SURG 06:47
PROVIDERS: ATTEND Physical Medicine & Rehabilitation
DX: M43.27 Fusion of spine, lumbosacral region (principal); M46.1 Sacroiliitis, not elsewhere classified; J45.909 Unspecified asthma, uncomplicated; Z79.82 Long term (current) use of aspirin; Z79.899 Other long term (current) drug therapy

== ENCOUNTER → 2017-07-11 | Outpatient (CLI) | payer OTHER ==
[~2017-07-11] MED LIST changes: -ATROPINE SULFATE 0.1 MG/ML 5ML SYR IV PRN; -EpHEDrine SULFATE INJ 50 MG/ML AMP IV PRN; -FENTANYL CITRATE INJ 50 MCG/1 ML 2 ML VIAL ONE; -LACTATED RINGER'S 1000ML 1,000 ML IV SCH; -LIDOCAINE HCL 1% 20 ML VIAL ONE; -MIDAZOLAM HCL 1 MG/ML 2ML VIAL ONE
[2017-07-11 12:29] LABS: BASO % 0.9 %; BASO ABS # 0.07 K/uL (0-0.2); EOS ABS # 0.31 K/uL (0-0.5); HEMATOCRIT 42.3 % (37-47); HEMOGLOBIN 14.2 g/dL (12.0-16.0); IG# 0.02 K/uL (0.00-0.02); LYMPH % 19.5 %; LYMPH ABS # 1.52 K/uL (1.2-3.4); MEAN CELL VOLUME 88.7 fL (80-100); MEAN CORPUSCULAR HEMOGLOBIN 29.8 pg (25-34); MEAN CORPUSCULAR HGB CONC 33.6 g/dl (32-36); MEAN PLATELET VOLUME 10.2 fL (7.4-10.4); MONO % 11.4 %; MONO ABS # 0.89 K/uL (0.11-0.59); NEUT % 63.9 %; PLATELET COUNT 181 K/uL (130-400); RED CELL DISTRIBUTION WIDTH CV 14.8 % (11.5-14.5); RED CELL DISTRIBUTION WIDTH SD 47.6 fL (36.4-46.3); WHITE BLOOD COUNT 7.81 K/uL (4.8-10.8)
[2017-07-11 13:00] LABS: ALBUMIN 3.8 gm/dl (3.4-5.0); BLOOD UREA NITROGEN 37 mg/dl (7-18); CALCIUM 9.3 mg/dl (8.5-10.1); CARBON DIOXIDE 31 mmol/L (21-32); CREATININE 1.52 mg/dl (0.60-1.20); GLUCOSE 90 mg/dl (70-99); PHOSPHORUS 3.1 mg/dl (2.5-4.9); POTASSIUM 4.1 mmol/L (3.5-5.1); SODIUM 140 mmol/L (136-145)
== END | disposition home or self-care (01) ==
LOC: C.LABBFT 10:08
PROVIDERS: ATTEND Internal Medicine Nephrology
DX: N18.3 Chronic kidney disease, stage 3 (moderate) (principal)

== ENCOUNTER → 2017-07-12 | Outpatient (CLI) | payer OTHER | END | disposition home or self-care (01) | LOC: C.LABBFT 11:09 | PROVIDERS: ATTEND Internal Medicine Nephrology | DX: N18.3 Chronic kidney disease, stage 3 (moderate) (principal) ==

== ENCOUNTER → 2017-07-18 | Outpatient (CLI) | payer OTHER | END | disposition home or self-care (01) | LOC: C.LABBFT 12:24 | PROVIDERS: ATTEND Internal Medicine | DX: E03.9 Hypothyroidism, unspecified (principal) ==

== ENCOUNTER → 2017-07-25 | Outpatient (CLI) | payer OTHER ==
--- NOTE | 2017-07-26 14:21 | MAMMOGRAPHY REPORT ---
BILATERAL DIGITAL SCREENING MAMMOGRAM TOMOSYNTHESIS WITH CAD: 07/25/2017 CLINICAL HISTORY: Routine screening examination. TECHNIQUE: Breast tomosynthesis in addition to standard 2D mammography was performed. Current study was also evaluated with a Computer Aided Detection (CAD) system. COMPARISON: Comparison is made to exams dated: 07/21/2016 mammogram, 07/17/2015 mammogram, 05/30/2014 m ammogram, 03/29/2013 mammogram, 03/28/2012 mammogram, and 03/23/2011 mammogram - [facility] enter. BREAST COMPOSITION: There are scattered areas of fibroglandular density in both breasts. FINDINGS: The exam is slightly suboptimal due to inability of the patient to adequately position. Wi thin this limitation, there are mild vascular calcifications bilaterally. Scattered benign rounded r im calcifications. No suspicious mass, architectural distortion or cluster of microcalcifications is seen. IMPRESSION: ACR BI-RADS CATEGORY 1: NEGATIVE There is no mammographic evidence of malignancy. A 1 year screening mammogram is recommended. The pa tient will receive written notification of the results. Approximately 10% of breast cancers are not detected with mammography. A negative mammographic report should not delay biopsy if a clinically suggestive mass is present. Veronica Pollock M.D. ay/:07/25/2017 19:23:59 Bulk Cooler Installer: Gena ROBERT(Sourav)([place]), [facility] letter sent: Normal 1/2 BI-RADS Code: ACR BI-RADS Category 1: Negative
== END | disposition home or self-care (01) ==
LOC: C.MAMM 10:26
PROVIDERS: ATTEND Internal Medicine
DX: Z12.31 Encounter for screening mammogram for malignant neoplasm of breast (principal)

== ENCOUNTER 2017-10-11 18:27 | Observation (INO) | payer OTHER ==
[~2017-10-11] VITALS: Ht 149.9 cm; Wt 85.7 kg
[2017-10-11] MEDS ORDERED: ASPIRIN 324 MG CHEW PO STA (18:51)
--- NOTE | 2017-10-11 18:58 | EMERGENCY ROOM VISIT NOTE ---
History Report prepared by Isabell: Kay Deleon Under the Supervision of: Dr. Kai Capellan M.D. First contact with patient: 18:37 Chief Complaint: CHEST PAIN Stated Complaint: CHEST PAIN,NAUSEA History of Present Illness The patient is an 82 year old white female with a past medical history of Afib, HTN, Hypothyroidism, who presents to the ED with a cc of chest pain beginning at 0430 this morning. Positive SOB, dry cough. Negative nausea, vomiting, diaphoresis, recent car or plane travel, or history of heart problems. She states her episode lasted about 45 minutes but it is resolved now. She notes she came to the ED now because she still is shaky and has some weakness. She describes her chest pain as left sided and a pressure. The patient notes that waking worsens her pain and lying down alleviates her chest pain. She reports she had 2 albuterol treatments today for her asthma and took her last one at 1600 today. She is accompanied by her daughter who states that her mother was seen by Dr. Coleman, [employer] yesterday and her bp [id number]. Source of History: patient, family (daughter) Onset: 0430 this morning Position: chest (left) Quality: pressure Timing: resolved Modifying Factors (Worsening): other (walking) Modifying Factors (Relieving): other (lying down) Associated Symptoms: + cough (dry), + SOB, + weakness, No diaphoresis, No nausea, No vomiting Note: Positive shakiness. Negative recent car or plane travel or history of heart problems Review of Systems See HPI for pertinent positives and negatives. A total of ten systems were reviewed and were otherwise negative. Past Medical & Surgical Medical Problems: (1) Asthma (2) Atrial fibrillation (3) Bronchopneumonia, organism unspecified (4) Hypertension (5) Hypothyroidism (6) Rheumatoid arthritis (7) Streptococcus infection (8) Tricuspid valve disease (9) Unspecified pleural effusion Surgical Problems: (1) H/O thyroidectomy Family History Insignificant due to advanced age Social History Smoking Status: Never Smoker Drug Use: none Marital Status: Housing Status: lives with significant other Occupation Status: retired Current/Historical Medications Scheduled Ascorbic Acid (Vitamin C), 1 TAB PO QAM Aspirin (Aspirin Ec), 81 MG PO QAM Atorvastatin (Lipitor), 20 MG PO HS Cholecalciferol (Vitamin D 400 Iu), 400 INTER.UNIT PO QAM Diltiazem Hcl Ext Rel (Tiazac), 300 MG PO QAM Docusate Sodium (Stool Softener), 1 CAPSULES PO BID Doxazosin Mesylate (Cardura), 4 MG PO BID Fish Oil ([place]-3), 1 CAP PO QAM Hydrochlorothiazide (Hctz), 25 MG PO QAM Levothyroxine Sodium (Levothyroxine Sodium), 150 MCG PO QAM Metoprolol Succinate (Metoprolol Succinate ER), 100 MG PO BID Multiple Vitamins W/ Minerals (Centrum), 1 TAB PO QAM Ocuvite Preservision (Ocuvite Preservision), 1 TAB PO BID Olmesartan Medoxomil (Olmesartan Medoxomil), 20 MG PO DAILY Potassium Chloride (Micro-K Ext Rel), 1 TAB PO BID Sertraline (Zoloft), 50 MG PO HS Scheduled PRN Albuterol Hfa (Ventolin Hfa), 2 PUFFS INH Q6H PRN for SOB/Wheezing Levalbuterol Hcl (Levalbuterol Hcl), 1 DOSE NEB Q4 PRN for SOB/Wheezing Lorazepam (Lorazepam), 1 TAB PO BID PRN for Anxiety Allergies Coded Allergies: BEE STING (Verified Allergy, Intermediate, HIVES, 06/14/17) Sulfa Antibiotics (Verified Allergy, Unknown, MOUTH SWELLED/HIVES TO SULFA DRUGS, 06/14/17) Nitrofurantoin (Verified Adverse Reaction, Severe, CAUSES HEPATITUS, ) Hydromorphone (Verified Adverse Reaction, Intermediate, HALLUCINATIONS, 01/21) Physical Exam Vital Signs Date Time Temp Pulse Resp B/P (MAP) Pulse Ox O2 Delivery O2 Flow Rate FiO2 10/11/17 19:56 78 18 173/93 94 Room Air 10/11/17 19:38 71 10/11/17 19:01 97 Room Air 10/11/17 19:01 Room Air 10/11/17 18:33 36.6 82 20 201/66 96 Room Air Physical Exam GENERAL: Awake, alert, well-appearing, NAD HENT: Normocephalic, atraumatic. EYES: Normal conjunctiva. Sclera non-icteric. PERRL. No anisocoria. NECK: Supple. No nuchal rigidity. FROM. RESPIRATORY: CTAB, no rhonchi, wheezing, crackles CARDIAC: RRR, Systolic ejection murmur ABDOMEN: Soft, NTND, BS+ MSK: No chest wall TTP, no LE swelling, asymmetry, erythema. Negative Homans sign. NEURO: GCS 15, CN 2-12 intact, moves all 4s on command SKIN: No rash or jaundice noted. Medical Decision & Procedures ER Provider Diagnostic Interpretation: Radiology results as stated below per my review and radiologist interpretation: CHEST ONE VIEW PORTABLE CLINICAL HISTORY: CHEST PAIN pain COMPARISON STUDY: 06/14/2016 FINDINGS: The bones soft tissues and hemidiaphragms are normal. The cardiomediastinal silhouette is normal. The lungs are clear. The pulmonary vasculature is normal. IMPRESSION: Negative chest. The above report was generated using voice recognition software. It may contain grammatical, syntax or spelling errors. Electronically signed by: Immanuel Bravo M.D. 10/11/2017 7:19 PM Laboratory Results 10/11/17 18:55 Red Blood Count 4.78, Mean Corpuscular Volume 88.9, Mean Corpuscular Hemoglobin 30.1, Mean Corpuscular Hemoglobin Concent 33.9, Mean Platelet Volume 9.6, Neutrophils (%) (Auto) 64.1, Lymphocytes (%) (Auto) 21.4, Monocytes (%) (Auto) 9.2, Eosinophils (%) (Auto) 4.5, Basophils (%) (Auto) 0.6, Neutrophils # (Auto) 5.18, Lymphocytes # (Auto) 1.73, Monocytes # (Auto) 0.74, Eosinophils # (Auto) 0.36, Basophils # (Auto) 0.05 10/11/17 18:55 Test 10/11/17 18:55 10/11/17 19:55 White Blood Count 8.08 K/uL (4.8-10.8) Red Blood Count 4.78 M/uL (4.2-5.4) Hemoglobin 14.4 g/dL (12.0-16.0) Hematocrit 42.5 % (37-47) Mean Corpuscular Volume 88.9 fL (80-100) Mean Corpuscular Hemoglobin 30.1 pg (25-34) Mean Corpuscular Hemoglobin Concent 33.9 g/dl (32-36) Platelet Count 166 K/uL (130-400) Mean Platelet Volume 9.6 fL (7.4-10.4) Neutrophils (%) (Auto) 64.1 % Lymphocytes (%) (Auto) 21.4 % Monocytes (%) (Auto) 9.2 % Eosinophils (%) (Auto) 4.5 % Basophils (%) (Auto) 0.6 % Neutrophils # (Auto) 5.18 K/uL (1.4-6.5) Lymphocytes # (Auto) 1.73 K/uL (1.2-3.4) Monocytes # (Auto) 0.74 K/uL (0.11-0.59) Eosinophils # (Auto) 0.36 K/uL (0-0.5) Basophils # (Auto) 0.05 K/uL (0-0.2) RDW Standard Deviation 46.8 fL (36.4-46.3) RDW Coefficient of Variation 14.3 % (11.5-14.5) Immature Granulocyte % (Auto) 0.2 % Immature Granulocyte # (Auto) 0.02 K/uL (0.00-0.02) Prothrombin Time 12.0 SECONDS (9.0-12.0) Prothromb Time International Ratio 1.1 (0.9-1.1) Activated Partial Thromboplast Time 27.2 SECONDS (21.0-31.0) Partial Thromboplastin Ratio 1.0 Anion Gap 9.0 mmol/L (3-11) Est Creatinine Clear Calc Drug Dose 30.3 ml/min Estimated GFR () 42.4 Estimated GFR (Non- 36.5 BUN/Creatinine Ratio 22.8 (10-20) Calcium Level 9.4 mg/dl (8.5-10.1) Total Bilirubin 0.6 mg/dl (0.2-1) Direct Bilirubin 0.2 mg/dl (0-0.2) Aspartate Amino Transf (AST/SGOT) 15 U/L (15-37) Alanine Aminotransferase (ALT/SGPT) 20 U/L (12-78) Alkaline Phosphatase 81 U/L (45-117) Troponin I 0.183 ng/ml (0-0.045) Pro-B-Type Natriuretic Peptide 948 pg/ml (0-1800) Total Protein 7.4 gm/dl (6.4-8.2) Albumin 3.8 gm/dl (3.4-5.0) Lipase 145 U/L (73-393) Thyroid Stimulating Hormone (TSH) 0.285 uIu/ml (0.300-4.500) Urine Color YELLOW Urine Appearance CLEAR (CLEAR) Urine pH 7.0 (4.5-7.5) Urine Specific [place] 1.009 (1.000-1.030) Urine Protein NEG (NEG) Urine Glucose (UA) NEG (NEG) Urine Ketones NEG (NEG) Urine Occult Blood NEG (NEG) Urine Nitrite NEG (NEG) Urine Bilirubin NEG (NEG) Urine Urobilinogen NEG (NEG) Urine Leukocyte Esterase SMALL (NEG) Urine WBC (Auto) 10-30 /hpf (0-5) Urine RBC (Auto) 0-4 /hpf (0-4) Urine Hyaline Casts (Auto) 0 /lpf (0-5) Urine Epithelial Cells (Auto) >30 /lpf (0-5) Urine Bacteria (Auto) 1+ (NEG) Laboratory results reviewed by me Medications Administered Medications (Trade) Dose Ordered Sig/Nixon Route Start Time Stop Time Status Last Admin Dose Admin Aspirin (Aspirin Chew) 324 mg NOW STAT PO 10/11/17 18:51 10/11/17 18:53 DC 10/11/17 19:06 324 MG ECG Per My Interpretation Indication: chest pain Rate (beats per minute): 88 Rhythm: normal sinus Findings: left axis deviation, other (normal intervals, questionable ST segment depression in the high lateral leads) Comparison ECG Date: 02/09/2015 Change: When compared to EKG from 02/09/2015, the ST segment in the high lateral lead is old ED Course 1842: The patient was evaluated in room C6. A complete history and physical exam was performed. 1943: Discussed the patient's case with Dr. Stratton, [facility] Hospitalist. The patient will be evaluated for further treatment and disposition. 1944: I checked on the patient at this time. The patient still has no chest pains at this time. 2104: I spoke to Dr. Cali, vice president of sales about the patient at this time. Medical Decision The patient is an 82 year old white female with a past medical history of Afib, HTN, Hypothyroidism, who presents to the ED with a cc of chest pain beginning at 0430 this morning. Positive SOB, dry cough. Negative nausea, vomiting, diaphoresis, recent car or plane travel, or history of heart problems. Nursing notes reviewed. Ancillary studies and prior records reviewed. Differential diagnosis: Etiologies such as cardiac ischemia, aortic dissection, pulmonary embolism, pneumonia, pneumothorax, musculoskeletal, infections, pericarditis, myocarditis , esophageal rupture, gastrointestinal, as well as others were entertained. Patient was seen and evaluated the bedside. Patient did complain of having what she describes some palpitations or racing heart around 430 this morning. This resolved around 5. Patient had persistent chest pains. Patient states that she does not have any active chest pain now it is typically left-sided and sharp. Nonradiating. Patient denies any prior history of DVT or PE. Patient does have chronic lower extremity edema she states but is unchanged. On exam the patient has no asymmetry that is notable and has a negative Homans sign and no evidence of any erythema or calf pain. Patient does not have any reproducible chest wall pain. Patient is not hypoxic, tachycardic, tachypneic, or hypotensive. Patient did have blood work completed along with EKG, troponin, chest x-ray. Patient's chest x-ray is unremarkable. The patient's blood work did show that she has an elevated troponin. She does have mild CKD. Given the patient's elevated troponin believe she would benefit from further evaluation and treatment at this time. Patient was already given a full dose aspirin. Given her lack of active chest pain no further treatment at this time especially given her lack of any EKG changes. Patient was advised to notify staff if she does have recurrence of chest pain. I did speak with the on-call hospitalist who agreed to further evaluate and treat the patient. Head Trauma GCS Score: 15 Medication Reconcilliation Current Medication List: was personally reviewed by me Blood Pressure Screening Patient's blood pressure: Elevated blood pressure Blood pressure disposition: Referred to PCP Consults Time Called: 1942 Consulting Physician: Dr. Stratton [facility] Hospitalist Returned Call: 1943 Discussed the patient's case with Dr. Stratton [facility] Hospitalist. The patient will be evaluated for further treatment and disposition. Impression Primary Impression: Atypical chest pain Additional Impression: CKD (chronic kidney disease) stage 3, GFR 30-59 ml/min Scribe Attestation The scribe's documentation has been prepared under my direction and personally reviewed by me in its entirety. I confirm that the note above accurately reflects all work, treatment, procedures, and medical decision making performed by me. Departure Information Dispostion Being Evaluated By Hospitalist (Dr. Stratton, [facility] Hospitalist) Referrals Amador Coleman M.D. (PCP) Patient Instructions My [facility] Problem Qualifiers
[2017-10-11 19:08] LABS: BASO % 0.6 %; BASO ABS # 0.05 K/uL (0-0.2); EOS % 4.5 %; EOS ABS # 0.36 K/uL (0-0.5); HEMATOCRIT 42.5 % (37-47); HEMOGLOBIN 14.4 g/dL (12.0-16.0); IG# 0.02 K/uL (0.00-0.02); LYMPH % 21.4 %; LYMPH ABS # 1.73 K/uL (1.2-3.4); MEAN CELL VOLUME 88.9 fL (80-100); MEAN CORPUSCULAR HEMOGLOBIN 30.1 pg (25-34); MEAN CORPUSCULAR HGB CONC 33.9 g/dl (32-36); MEAN PLATELET VOLUME 9.6 fL (7.4-10.4); MONO % 9.2 %; MONO ABS # 0.74 K/uL (0.11-0.59); NEUT % 64.1 %; NEUT ABS # 5.18 K/uL (1.4-6.5); PLATELET COUNT 166 K/uL (130-400); RED CELL DISTRIBUTION WIDTH CV 14.3 % (11.5-14.5); RED CELL DISTRIBUTION WIDTH SD 46.8 fL (36.4-46.3); WHITE BLOOD COUNT 8.08 K/uL (4.8-10.8)
[2017-10-11 19:20] LABS: INR 1.1 (0.9-1.1); PTT PATIENT 27.2 SECONDS (21.0-31.0)
--- NOTE | 2017-10-11 19:21 | DIAGNOSTIC IMAGING REPORT ---
CHEST ONE VIEW PORTABLE CLINICAL HISTORY: CHEST PAIN pain COMPARISON STUDY: 06/14/2016 FINDINGS: The bones soft tissues and hemidiaphragms are normal. The cardiomediastinal silhouette is normal. The lungs are clear. The pulmonary vasculature is normal. IMPRESSION: Negative chest. The above report was generated using voice recognition software. It may contain grammatical, syntax or spelling errors. Electronically signed by: Immanuel Bravo M.D. 10/11/2017 7:19 PM Dictated Date/Time: 10/11/2017 7:19 PM
[2017-10-11 19:31] LABS: ALBUMIN 3.8 gm/dl (3.4-5.0); CALCIUM 9.4 mg/dl (8.5-10.1); CREATININE 1.34 mg/dl (0.60-1.20); POTASSIUM 3.5 mmol/L (3.5-5.1); TOTAL PROTEIN 7.4 gm/dl (6.4-8.2)
[2017-10-11] MEDS ORDERED: OLME20TA26 PO (20:11)
[2017-10-11] MEDS ORDERED: LEVA1.258 NEB (20:11)
[2017-10-11] MEDS ORDERED: TPRSR/100 PO (20:13)
[2017-10-11] MEDS ORDERED: ACETAMINOPHEN 325 MG TAB PO PRN ×2 (20:30)
[2017-10-11] MEDS ORDERED: ALUMINUM/MAGNESIUM/SIMETH (MAALOX MAX) 30 ML UDC PO PRN (20:30)
[2017-10-11] MEDS ORDERED: LORAZEPAM 0.5 MG TAB PO PRN (20:30)
[2017-10-11] MEDS ORDERED: ONDANSETRON INJ 2 MG/ML 2 ML VIAL IV PRN (20:30)
[2017-10-11] MEDS ORDERED: POLYETHYLENE (MIRALAX) 17 GM PACK PO PRN (20:30)
[2017-10-11] MEDS ORDERED: MAGNESIUM HYDROXIDE SUSP 30 ML UDC PO PRN (20:30)
[2017-10-11] MEDS ORDERED: IV FLUIDS COMPLETED PRN (21:00)
--- NOTE | 2017-10-11 21:09 | History and Physical ---
History & Physical Date & Time of Service: Oct 11, 2017 at 20:43 Chief Complaint: Chest Pain,Nausea Primary Care Physician: Amador Coleman M.D. History of Present Illness Source: patient, hospital records Patient is a 82 year old female with a PMH of HTN, renal cell carcinoma s/p nephrectomy, Asthma, CKD, Hypothyroidism and HLD that presented to [facility] with chest pain and palpitations. She notes that her chest pain started at 4am this morning and woke her from her sleep. It is located underneath her left breast. It is a dull pain that is constant. The chest pain is not made worse with ambulation. The chest pain is associated with palpitations. Both the chest pain and the palpitations have been improving since 4 am this morning. She has been more short of breath over the last week and has been using her albuterol inhaler 2-3 times a day. Last week she was using her albuterol nebulizer every 4 hours after taking instructions from her door and arrival attendant. She has also had a dry cough. She has a history of asthma and follows with [facility] Pulmonology. She is not on a steroid inhaler. The patient also notes that she has been doing a lot more work around the house lately and has been doing a lot of lifting and cleaning. She denies any calf pain, fevers, chills, decreased appetite, recent long haul travel, nausea, vomiting, diarrhea or urinary issues. Past Medical/Surgical History Medical Problems: (1) Asthma (2) Atrial fibrillation (3) Bronchopneumonia, organism unspecified (4) Calcium channel christoph overdose (5) Hypertension (6) Hypothyroidism (7) Left Knee DJD (8) Rheumatoid arthritis (9) Streptococcus infection (10) Tricuspid valve disease (11) Unspecified pleural effusion Surgical Problems: (1) H/O thyroidectomy Family History Insignificant due to advanced age Both parents with NV's, Father was in his 60's Social History Smoking Status: Never Smoker Smokeless Tobacco Use: No Alcohol Use: none Drug Use: none Marital Status: Housing status: lives with family Occupational Status: retired Immunizations History of Influenza Vaccine: No History of Tetanus Vaccine?: Yes History of Pneumococcal: Yes History of Hepatitis B Vaccine: Yes Allergies Coded Allergies: BEE STING (Verified Allergy, Intermediate, HIVES, 06/14/17) Sulfa Antibiotics (Verified Allergy, Unknown, MOUTH SWELLED/HIVES TO SULFA DRUGS, 06/14/17) Nitrofurantoin (Verified Adverse Reaction, Severe, CAUSES HEPATITUS, ) Hydromorphone (Verified Adverse Reaction, Intermediate, HALLUCINATIONS, 01/21) Home Medications Scheduled Ascorbic Acid (Vitamin C), 1 TAB PO QAM Aspirin (Aspirin Ec), 81 MG PO QAM Atorvastatin (Lipitor), 20 MG PO HS Cholecalciferol (Vitamin D 400 Iu), 400 INTER.UNIT PO QAM Diltiazem Hcl Ext Rel (Tiazac), 300 MG PO QAM Docusate Sodium (Stool Softener), 1 CAPSULES PO BID Doxazosin Mesylate (Cardura), 4 MG PO BID Fish Oil ([place]-3), 1 CAP PO QAM Hydrochlorothiazide (Hctz), 25 MG PO QAM Levothyroxine Sodium (Levothyroxine Sodium), 150 MCG PO QAM Metoprolol Succinate (Metoprolol Succinate ER), 100 MG PO BID Multiple Vitamins W/ Minerals (Centrum), 1 TAB PO QAM Ocuvite Preservision (Ocuvite Preservision), 1 TAB PO BID Olmesartan Medoxomil (Olmesartan Medoxomil), 20 MG PO DAILY Potassium Chloride (Micro-K Ext Rel), 1 TAB PO BID Sertraline (Zoloft), 50 MG PO HS Scheduled PRN Albuterol Hfa (Ventolin Hfa), 2 PUFFS INH Q6H PRN for SOB/Wheezing Levalbuterol Hcl (Levalbuterol Hcl), 1 DOSE NEB Q4 PRN for SOB/Wheezing Lorazepam (Lorazepam), 1 TAB PO BID PRN for Anxiety Review of Systems 10 systems were reviewed and negative except as noted in the HPI Physical Exam Vital Signs Date Time Temp Pulse Resp B/P (MAP) Pulse Ox O2 Delivery O2 Flow Rate FiO2 10/11/17 19:56 78 18 173/93 94 Room Air 10/11/17 19:38 71 10/11/17 19:01 97 Room Air 10/11/17 19:01 Room Air 10/11/17 18:33 36.6 82 20 201/66 96 Room Air General Appearance: WD/WN, no apparent distress ENT: hearing grossly normal, pharynx normal Neck: supple, no adenopathy, no JVD, + pertinent finding (murmur radiated from heart to carotid) Respiratory/Chest: lungs clear, no respiratory distress, no accessory muscle use, + pertinent finding (tenderness to palpation along the intercostal muscles underneath the left breast) Cardiovascular: regular rate, rhythm, normal peripheral pulses, + systolic murmur (3/6 heard best at the LLSB) Abdomen/GI: normal bowel sounds, non tender, soft Extremities/Musculoskelatal: no pedal edema, normal range of motion, + calf tenderness (R calf tenderness to palpation) Neurologic/Psych: no motor/sensory deficits, alert, normal mood/affect, oriented x 3 Skin: warm/dry, no rash Diagnostics Laboratory Results Results Past 24 Hours Test 10/11/17 18:55 10/11/17 19:55 Range/Units White Blood Count 8.08 4.8-10.8 K/uL Red Blood Count 4.78 4.2-5.4 M/uL Hemoglobin 14.4 12.0-16.0 g/dL Hematocrit 42.5 37-47 % Mean Corpuscular Volume 88.9 80-100 fL Mean Corpuscular Hemoglobin 30.1 25-34 pg Mean Corpuscular Hemoglobin Concent 33.9 32-36 g/dl Platelet Count 166 130-400 K/uL Mean Platelet Volume 9.6 7.4-10.4 fL Neutrophils (%) (Auto) 64.1 % Lymphocytes (%) (Auto) 21.4 % Monocytes (%) (Auto) 9.2 % Eosinophils (%) (Auto) 4.5 % Basophils (%) (Auto) 0.6 % Neutrophils # (Auto) 5.18 1.4-6.5 K/uL Lymphocytes # (Auto) 1.73 1.2-3.4 K/uL Monocytes # (Auto) 0.74 0.11-0.59 K/uL Eosinophils # (Auto) 0.36 0-0.5 K/uL Basophils # (Auto) 0.05 0-0.2 K/uL RDW Standard Deviation 46.8 36.4-46.3 fL RDW Coefficient of Variation 14.3 11.5-14.5 % Immature Granulocyte % (Auto) 0.2 % Immature Granulocyte # (Auto) 0.02 0.00-0.02 K/uL Prothrombin Time 12.0 9.0-12.0 SECONDS Prothromb Time International Ratio 1.1 0.9-1.1 Activated Partial Thromboplast Time 27.2 21.0-31.0 SECONDS Partial Thromboplastin Ratio 1.0 Sodium Level 138 136-145 mmol/L Potassium Level 3.5 3.5-5.1 mmol/L Chloride Level 104 98-107 mmol/L Carbon Dioxide Level 25 21-32 mmol/L Anion Gap 9.0 3-11 mmol/L Blood Urea Nitrogen 31 7-18 mg/dl Creatinine 1.34 0.60-1.20 mg/dl Est Creatinine Clear Calc Drug Dose 30.3 ml/min Estimated GFR () 42.4 Estimated GFR (Non- 36.5 BUN/Creatinine Ratio 22.8 10-20 Random Glucose 101 70-99 mg/dl Calcium Level 9.4 8.5-10.1 mg/dl Total Bilirubin 0.6 0.2-1 mg/dl Direct Bilirubin 0.2 0-0.2 mg/dl Aspartate Amino Transf (AST/SGOT) 15 15-37 U/L Alanine Aminotransferase (ALT/SGPT) 20 12-78 U/L Alkaline Phosphatase 81 45-117 U/L Troponin I 0.183 0-0.045 ng/ml Pro-B-Type Natriuretic Peptide 948 0-1800 pg/ml Total Protein 7.4 6.4-8.2 gm/dl Albumin 3.8 3.4-5.0 gm/dl Lipase 145 73-393 U/L Urine Color YELLOW Urine Appearance CLEAR CLEAR Urine pH 7.0 4.5-7.5 Urine Specific [place] 1.009 1.000-1.030 Urine Protein NEG NEG Urine Glucose (UA) NEG NEG Urine Ketones NEG NEG Urine Occult Blood NEG NEG Urine Nitrite NEG NEG Urine Bilirubin NEG NEG Urine Urobilinogen NEG NEG Urine Leukocyte Esterase SMALL NEG Urine WBC (Auto) 10-30 0-5 /hpf Urine RBC (Auto) 0-4 0-4 /hpf Urine Hyaline Casts (Auto) 0 0-5 /lpf Urine Epithelial Cells (Auto) >30 0-5 /lpf Urine Bacteria (Auto) 1+ NEG Microbiology Results 10/11/17 Urine Culture, Received Pending Diagnostic Radiology [~ rep ct add3]] CHEST ONE VIEW PORTABLE CLINICAL HISTORY: CHEST PAIN pain COMPARISON STUDY: 06/14/2016 FINDINGS: The bones soft tissues and hemidiaphragms are normal. The cardiomediastinal silhouette is normal. The lungs are clear. The pulmonary vasculature is normal. IMPRESSION: Negative chest. EKG Indication: chest pain Rate (beats per minute): 88 Rhythm: normal sinus Findings: left axis deviation, other (normal intervals, questionable ST segment depression in the high lateral leads) Comparison ECG Date: 02/09/2015 Change: When compared to EKG from 02/09/2015, the ST segment in the high lateral lead is old Impression Assessment and Plan Patient is a 82 year old female with a PMH of HTN, renal cell carcinoma s/p nephrectomy, Asthma, CKD, Hypothyroidism and HLD that presented to [facility] with chest pain and palpitations. Chest pain and palpitations w/ elevated troponin (Differential includes: Intercostal muscle spasm, Unstable angina, NSTEMI, PE, Pericarditis, Costochondritis, medication SE) - EKG with no overt ST changes and unchanged from prior - 324 aspirin given in the ED - chest pain is reproducible therefore likely MSK due to recent increase in activity - troponin 0.183 in the ED, trend q8, elevated troponin likely from demand ischaemia from previous excess inhaler use and possible run of tachycardia, may require holter to check for afib in the outpatient setting, will admit to telemetry for now - will give tylenol 650mg q6 prn due to reproducible chest pain R calf pain on exam - will obtain venous doppler to check for DVT HTN - continue diltiazem, doxazosin, metoprolol and olmesartan - hold HCTZ due to renal function - will give evening dose of medications and reassess to see if patient needs more meds to control BP CKD stage 3 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 Assessment and Plan: Elevated troponin/palpitations/chest pain/hypertension-- The patient will be admitted to telemetry for serial cardiac enzymes, serial EKG's, cardiac rhythm monitoring and a 2-D echocardiogram with Dopplers. No new EKG changes. Most likely supply demand mismatch. Continue diltiazem CD 300 mg in the morning, metoprolol succinate 100 mg p.o. twice daily, irbesartan 20 mg daily, and doxazosin 4 mg p.o. twice daily. Hold HCTZ. Give Cardizem 30 mg p.o. every 6 hours as needed if blood pressure heart rate do not undergo improved control with administration of routine medications tonight. On a long-term basis, based on recent studies, doxazosin should be gradually be tapered and/or removed from her regimen. We consider changing diltiazem CD to 180mg p.o. twice daily to give more around- the-clock control. CKD stage III/nephrectomy/renal cell cancer-- Holding HCTZ as noted above. Remaining notations and orders as above. Advanced Directives Existing Advance Directive: No Existing Living Will: No Existing Power of Liner Helper: No Resuscitation Status VTE Prophylaxis Will order VTE Prophylaxis: Yes Social Service Consult None Apply
--- NOTE | 2017-10-11 21:41 | DIAGNOSTIC IMAGING REPORT ---
R VENOUS DOPP LOWER EXT UNILAT CLINICAL HISTORY: Calf pain pain. Edema. TECHNIQUE: COMPARISON STUDY: FINDINGS: Normal study IMPRESSION: Normal study The above report was generated using voice recognition software. It may contain grammatical, syntax or spelling errors. Electronically signed by: Immanuel Bravo M.D. 10/11/2017 9:39 PM Dictated Date/Time: 10/11/2017 9:39 PM
[2017-10-11 22:52] VITALS: BP 148/83; PULSE 95; TEMP 36.2; O2SAT 94; Ht 149.9 cm; Wt 85.7 kg
[2017-10-11] MEDS: ATORVASTATIN 20 MG TAB PO SCH (23:16)
[2017-10-11] MEDS: POTASSIUM CHLORIDE 10 MEQ TABCR PO SCH (23:16)
[2017-10-11] MEDS: SERTRALINE HCL 50 MG TAB PO SCH (23:16)
[2017-10-11] MEDS: METOPROLOL SUCC 50MG EXT REL TAB PO SCH (23:17)
[2017-10-11] MEDS: DOXAZosin MESYLATE TAB 4 MG TAB PO SCH (23:19)
[2017-10-11] MEDS: HEPARIN SOD 5000 UNIT/0.5 ML CARP SQ SCH (23:21)
[2017-10-11 23:26] VITALS: BP 186/94; PULSE 84; TEMP 36.5; O2SAT 94
[2017-10-12] MEDS ORDERED: POTASSIUM CHLORIDE 10 MEQ TABCR PO STA (04:09)
[2017-10-12 04:14] VITALS: BP 177/97; PULSE 69; TEMP 36.7; O2SAT 92
[2017-10-12] MEDS ORDERED: DILTIAZEM HCL 30 MG TAB PO ONE (04:15)
[2017-10-12] MEDS ORDERED: LEVOTHYROXINE 150 MCG TAB PO SCH (06:00)
[2017-10-12 07:43] VITALS: BP_SYST 182; BP_SYST 190; BP_DIAS 100; BP_DIAS 95; PULSE 69; TEMP 36.7; O2SAT 90
[2017-10-12] MEDS: DOXAZosin MESYLATE TAB 4 MG TAB PO SCH ×2 (07:50→19:51)
[2017-10-12] MEDS: DILTIAZEM HCL 300 MG CAPCR PO SCH (07:51)
[2017-10-12] MEDS: HYDROCHLOROTHIAZIDE 25 MG TAB PO SCH (07:51)
[2017-10-12] MEDS: POTASSIUM CHLORIDE 10 MEQ TABCR PO SCH ×2 (07:51→19:53)
[2017-10-12] MEDS: ASPIRIN 81 MG ECTAB PO SCH (07:51)
[2017-10-12] MEDS: METOPROLOL SUCC 50MG EXT REL TAB PO SCH ×2 (07:52→19:52)
[2017-10-12] MEDS: OLMESARTAN MEDOXOMIL 20 MG TAB PO SCH (07:52)
[2017-10-12] MEDS: HEPARIN SOD 5000 UNIT/0.5 ML CARP SQ SCH ×2 (07:57→19:54)
[2017-10-12] MEDS ORDERED: MAGNESIUM SULFATE 1GM / D5W 100 ML IV STA (08:17)
[2017-10-12] MEDS ORDERED: NURSING VERBAL MED ORDER ONE (08:30)
[2017-10-12] MEDS: DOCUSATE SODIUM 100 MG CAP PO SCH ×2 (09:00→19:17)
[2017-10-12 11:49] VITALS: BP 171/93; PULSE 65; TEMP 36.9; O2SAT 90
--- NOTE | 2017-10-12 12:19 | DIAGNOSTIC IMAGING REPORT ---
DUPLEX RENAL ARTERY CLINICAL HISTORY: 82 years-old Female presenting with malignant HTN, eval for renal artery stenosis. TECHNIQUE: Real-time grayscale and color and spectral Doppler ultrasound imaging of the kidneys was performed. COMPARISON: CT from 05/08/2013. FINDINGS: RIGHT: Normal echogenicity of renal parenchyma. Right kidney measures 10.3 cm. No hydronephrosis. No convincing evidence of calculus or mass. Intrarenal resistive indices range from 0.73 to 0.80. Normal intrarenal arterial waveforms. Renal artery patent with peak systolic velocity 117 cm/s proximally, 112 cm/s in the midportion, and 55 cm/s distally. Renal vein patent. LEFT: Left kidney absent. Abdominal aorta: Patent. Peak systolic velocity 61 cm/s. Ratio of right renal artery PSV/aortic PSV: 2.8. Other: None. Reference ranges: Normal main renal artery peak systolic velocity less than 180 cm/s. Ratio of renal artery PSV to aortic PSV less than 3.5 equates to normal or less than 60% stenosis. Only one of the two criteria listed needs to be met for diagnosis. IMPRESSION: 1. No evidence of renal artery stenosis. 2. Elevated intrarenal resistive indices, nonspecific and could suggest medical renal disease. No hydronephrosis. Electronically signed by: Jorge Orellana M.D. 10/12/2017 12:18 PM Dictated Date/Time: 10/12/2017 12:15 PM
[2017-10-12 12:39] VITALS: BP 136/78; PULSE 65; TEMP 36.9; O2SAT 90
[2017-10-12 15:04] VITALS: BP 173/92; PULSE 61; TEMP 37; O2SAT 90
[2017-10-12 19:16] VITALS: BP 168/95; PULSE 64; TEMP 37; O2SAT 95
[2017-10-12] MEDS: SERTRALINE HCL 50 MG TAB PO SCH (19:52)
[2017-10-12] MEDS: ATORVASTATIN 20 MG TAB PO SCH (19:52)
--- NOTE | 2017-10-12 22:05 | ECHOCARDIOGRAM REPORT ---
*NOTICE TO RECEIVING [employer] This information is strictly Confidential and protected under [place] law. [place] law prohibits you from making any further disclosure of this information unless further disclosure is expressly permitted by the written consent of the person to whom it pertains or is authorized by law. A general authorization for the release of medical or other information is not sufficient for this purpose. Hospital accepts no responsibility if the information is made available to any other person, INCLUDING THE PATIENT. Interpretation Summary * Name: SIDDHARTH HANSEN I Study Date: 10/12/2017 06:50 AM BP: 182/100 mmHg * Patient Location: C.2T\S\S238\S\2 HR: 68 * : 1935 (M/d/yyyy) Gender: Female Height: 59 in * Age: 82 yrs Ethnicity: [place] Weight: 190 lb * Ordering Physician: Tony Stratton * Referring Physician: Self, Referred * Performed By: Kellie De La Cruz [facility] * * Reason For Study: ELEVATED TROPONIN * BSA: 1.8 m2 * -- Conclusions -- * 1. Normal left ventricular size and systolic function. EF 60-65%. No regional wall motion abnormalities. Severe concentric left ventricular hypertrophy. Type 1 diastolic dysfunction. * 2. The left atrium is mildly dilated. * 3. Aortic valve sclerosis moderate, without significant aortic valvular stenosis. * 4. There is moderate to severe mitral annular calcification. Compared to prior study on 07/01/2008, left ventricular hypertrophy now appears to be severe. Procedure Details * A complete two-dimensional transthoracic echocardiogram was performed (2D, M-mode, Doppler and color flow Doppler). Left Ventricle * Normal left ventricular size and systolic function. EF 60-65%. No regional wall motion abnormalities. Severe concentric left ventricular hypertrophy. Type 1 diastolic dysfunction. Right Ventricle * The right ventricle is normal in size and function. * The right ventricular systolic function is normal as assessed by tricuspid annular plane systolic excursion (TAPSE) (normal >1.5 cm). Atria * The left atrium is mildly dilated. * Right atrial size is normal. * There is no evidence of atrial septal defect, but resolution does not allow assessment for a patent foramen ovale. Mitral Valve * There is moderate to severe mitral annular calcification. * There is no mitral valve stenosis. * There is trace mitral regurgitation. Tricuspid Valve * The tricuspid valve is not well visualized, but is grossly normal. * There is no tricuspid stenosis. * There is trace tricuspid regurgitation. Aortic Valve * Aortic valve sclerosis moderate, without significant aortic valvular stenosis. * No hemodynamically significant valvular aortic stenosis. * Trace aortic regurgitation. Pulmonic Valve * The pulmonary valve is inadequately visualized, but the Doppler data is adequate for interpretation. * There is no pulmonic valvular stenosis. * Trace pulmonic valvular regurgitation. Great Vessels * The aortic root is normal size. * Normal pulmonary venous flow pattern. Pericardium/Pleural * There is no pericardial effusion. Great Vessels * IVC not well visualized. MMode 2D Measurements and Calculations IVSd 1.8 cm IVSs 2.1 cm LVIDd 4.0 cm LVIDs 2.6 cm LVPWd 1.6 cm LVPWs 1.9 cm IVS/LVPW 1.1 FS 34.1 % EDV(Teich) 69.0 ml ESV(Teich) 25.1 ml EF(Teich) 63.7 % EDV(cubed) 62.8 ml ESV(cubed) 18.0 ml EF(cubed) 71.4 % % IVS thick 18.0 % % LVPW thick 23.3 % LV mass(C)d 275.5 grams LV mass(C)dI 152.7 grams/m\S\2 LV mass(C)s 231.1 grams LV mass(C)sI 128.1 grams/m\S\2 SV(Teich) 43.9 ml SI(Teich) 24.3 ml/m\S\2 SV(cubed) 44.8 ml SI(cubed) 24.9 ml/m\S\2 Ao root diam 2.8 cm Ao root area 6.1 cm\S\2 ACS 1.0 cm LA dimension 4.1 cm asc Aorta Diam 3.0 cm LA/Ao 1.5 LVOT diam 2.1 cm LVOT area 3.3 cm\S\2 LVAd ap4 22.3 cm\S\2 LVLd ap4 6.6 cm EDV(MOD-sp4) 62.6 ml EDV(sp4-el) 63.8 ml LVAs ap4 11.6 cm\S\2 LVLs ap4 5.3 cm ESV(MOD-sp4) 23.0 ml ESV(sp4-el) 21.8 ml EF(MOD-sp4) 63.2 % EF(sp4-el) 65.8 % LVAd ap2 27.7 cm\S\2 LVLd ap2 7.6 cm EDV(MOD-sp2) 86.8 ml EDV(sp2-el) 86.3 ml LVAs ap2 16.4 cm\S\2 LVLs ap2 5.9 cm ESV(MOD-sp2) 40.2 ml ESV(sp2-el) 38.7 ml EF(MOD-sp2) 53.7 % EF(sp2-el) 55.1 % LVLd %diff 12.7 % EDV(MOD-bp) 80.1 ml LVLs %diff 10.9 % ESV(MOD-bp) 32.3 ml EF(MOD-bp) 59.7 % SV(MOD-sp4) 39.5 ml SI(MOD-sp4) 21.9 ml/m\S\2 SV(MOD-sp2) 46.6 ml SI(MOD-sp2) 25.8 ml/m\S\2 SV(MOD-bp) 47.8 ml SI(MOD-bp) 26.5 ml/m\S\2 SV(sp4-el) 41.9 ml SI(sp4-el) 23.2 ml/m\S\2 SV(sp2-el) 47.5 ml SI(sp2-el) 26.4 ml/m\S\2 Doppler Measurements and Calculations MV E max aravind 72.8 cm/sec MV A max aarvind 106.2 cm/sec MV E/A 0.69 MV V2 max 113.0 cm/sec MV max PG 5.1 mmHg MV V2 mean 59.8 cm/sec MV mean PG 1.6 mmHg MV V2 VTI 30.1 cm MVA(VTI) 2.2 cm\S\2 MV P1/2t max aravind 83.5 cm/sec MV P1/2t 63.4 msec MVA(P1/2t) 3.5 cm\S\2 MV dec slope 385.9 cm/sec\S\2 MV dec time 0.28 sec Ao V2 max 190.0 cm/sec Ao max PG 14.5 mmHg Ao max PG (full) 11.4 mmHg Ao V2 mean 127.9 cm/sec Ao mean PG 7.7 mmHg Ao mean PG (full) 6.2 mmHg Ao V2 VTI 40.8 cm KIANNA(I,A) 1.7 cm\S\2 KIANNA(I,D) 1.7 cm\S\2 KIANNA(V,A) 1.6 cm\S\2 KIANNA(V,D) 1.6 cm\S\2 LV V1 max PG 3.2 mmHg LV V1 mean PG 1.5 mmHg LV V1 max 89.0 cm/sec LV V1 mean 57.6 cm/sec LV V1 VTI 20.3 cm SV(Ao) 247.7 ml SI(Ao) 137.3 ml/m\S\2 SV(LVOT) 67.7 ml SI(LVOT) 37.5 ml/m\S\2 PA V2 max 101.4 cm/sec PA max PG 4.1 mmHg TR max aravind 266.4 cm/sec
[2017-10-13 00:05] VITALS: BP 112/74; PULSE 137; PULSE 66; TEMP 37.1; O2SAT 93
--- NOTE | 2017-10-13 00:14 | Progress Note ---
Subjective Date of Service: Oct 12, 2017. Subjective Pt evaluation today including: conversation w/ patient, conversation w/ family (daughter at bedside), physical exam, chart review, lab review, review of studies (renal artery doppler, echo), conversation w/ internet sales consultant (cardiology), review of inpatient medication list Pain: minimal chest discomfort PO Intake: normal Voiding: no voiding problems tele stable overnight she overall feels better today denies dyspnea mild chest wall pain is reproducible she admits to multiple psychosocial stressors at home including caring for her who has dementia review of outpatient medical record shows BPs in the 120-160 systolic range, with most being <140 Problem List Medical Problems: (1) Atypical chest pain Status: Acute (2) Calcium channel christoph overdose Status: Acute (3) CKD (chronic kidney disease) stage 3, GFR 30-59 ml/min Status: Acute Review of Systems Respiratory: + cough (but improved), No shortness of breath, No dyspnea on exertion Cardiac: + see HPI, + chest pain, No orthopnea, No PND, No edema Abdomen: No pain Female : No dysuria Objective Vital Signs Date Time Temp Pulse Resp B/P (MAP) Pulse Ox O2 Delivery O2 Flow Rate FiO2 10/12/17 20:00 Room Air 10/12/17 19:16 37.0 64 22 168/95 (119) 95 Room Air 10/12/17 15:04 37.0 61 18 173/92 (119) 90 Room Air 10/12/17 12:39 36.9 65 18 136/78 (97) 90 Room Air 10/12/17 11:49 36.9 65 19 171/93 (119) 90 Room Air 10/12/17 08:00 Room Air 10/12/17 07:43 36.7 69 20 190/95 (126) 90 Room Air 182/100 (127) 10/12/17 04:14 36.7 69 18 177/97 (123) 92 Room Air Physical Exam General Appearance: no apparent distress, + obese ENT: pharynx normal Neck: no JVD Respiratory/Chest: lungs clear, no respiratory distress, no accessory muscle use, + pertinent finding (mildly tender to palpation over costochondral junction ) Cardiovascular: regular rate, rhythm, no gallop, no murmur Abdomen: normal bowel sounds, non tender, soft, no organomegaly Extremities: no pedal edema Neurologic/Psychiatric: alert, oriented x 3 Skin: no rash, + pertinent finding (thyroidectomy scar, anterior neck ) Laboratory Results Last 24 Hours Test 10/12/17 02:56 10/12/17 11:47 Troponin I 0.245 ng/ml 0.119 ng/ml Magnesium Level 2.2 mg/dl Assessment and Plan 82yo female - 1. palpitations - thus far no dysrhythmia on monitor. Possibilities include sinus tach from beta agonist use this past week vs sinus tach from iatrogenic hyperthyroidism vs anxiety-induced vs dysrhythmia. Continue beta christoph. Adjust synthroid. She has had this issue in the past - could consider repeat outpatient monitor but defer to cardiology. 2. chest pain - despite the mildly positive troponin her pain is reproducible making musculoskeletal etiology most likely. She has no ischemic changes on EKG , and echo is w/o wall motion abnormalities. Treat symptoms for now. 3. mild iatrogenic hyperthyroidism - TSH in July was borderline low, and this TSH is also mildly low. In light of symptoms will REDUCE synthroid from 150mcg to 137mcg daily. Would d/c home on this lower dose and have her repeat TSH in 6 weeks. 4. HTN - accelerated - is on a 5-drug regimen. Previously just on 4 meds and ARB was added in the last 1-2 weeks as outpatient. Certainly concerning for a secondary cause of HTN. Renal doppler obtained today - no KHUSHBU in the remaining kidney. Send renin/carina levels. #3 could be contributing. No h/o FREDY. Doubt pheochromocytoma. Since outpatient BPs had been running decently will defer on titrating any medication today. Simply follow. 5. positive troponin - likely demand ischemia in setting of #4 as well as her palpitations/tachycardia. Cardiology has seen and felt that this is unlikely to be an ACS. 6. morbid obesity - BMI 38 7. solitary kidney status due to previous nephrectomy for renal cell ca - noted. 8. CKD stage 3 - creatinine stable today; repeat BMP am for stability. 9. h/o asthma - does not appear to be in exacerbation at this time. 10. hypomagnesemia - likely due to HCTZ use - resolved. She should take an oral mag supplement at d/c since HCTZ will be continued. 11. hyperlipidemia - statin. 12. asymptomatic bacteriuria - no Rx at this time. 13. anxiety - could consider titration of SSRI. Defer to outpatient PCP. 14. severe LVH on echo today - due to long-standing HTN - continue beta christoph. 15. diastolic dysfunction on echo - she remains compensated at this time. daughter updated today if BPs acceptable in AM then d/c home with close outpatient f/u Continued [facility] stay due to: other (accelerated HTN) Discharge planning: home
[2017-10-13 03:55] VITALS: BP 149/78; PULSE 64; TEMP 36.7; O2SAT 94
[2017-10-13] MEDS ORDERED: LEVOTHYROXINE 150 MCG TAB PO SCH (06:00)
[2017-10-13 07:19] LABS: CREATININE 1.46 mg/dl (0.60-1.20)
[2017-10-13 07:42] VITALS: BP 151/82; PULSE 61; TEMP 37; O2SAT 92
[2017-10-13] MEDS: DILTIAZEM HCL 300 MG CAPCR PO SCH (08:14)
[2017-10-13] MEDS: OLMESARTAN MEDOXOMIL 20 MG TAB PO SCH (08:14)
[2017-10-13] MEDS: DOXAZosin MESYLATE TAB 4 MG TAB PO SCH (08:15)
[2017-10-13] MEDS: ASPIRIN 81 MG ECTAB PO SCH (08:15)
[2017-10-13] MEDS: DOCUSATE SODIUM 100 MG CAP PO SCH (08:15)
[2017-10-13] MEDS: HYDROCHLOROTHIAZIDE 25 MG TAB PO SCH (08:16)
[2017-10-13] MEDS: POTASSIUM CHLORIDE 10 MEQ TABCR PO SCH (08:16)
[2017-10-13] MEDS: HEPARIN SOD 5000 UNIT/0.5 ML CARP SQ SCH (08:17)
[2017-10-13] MEDS: METOPROLOL SUCC 50MG EXT REL TAB PO SCH (08:17)
[2017-10-13 11:43] VITALS: BP 180/84; PULSE 64; TEMP 36.9; O2SAT 92
[2017-10-13] MEDS ORDERED: LEVO137T3 PO (12:11)
--- NOTE | 2017-10-13 12:14 | Discharge Instructions ---
Discharge Instructions Date of Service Oct 13, 2017. Admission Reason for Admission: Atypical Chest Pain Discharge Discharge Diagnosis / Problem: Atypical chest pain, heart palpitations Discharge Goals Goal(s): Improve disease control, Diagnostic testing, Therapeutic intervention Activity Recommendations Activity Limitations: resume your previous activity Shower/Bathe: no limitations . Instructions / Follow-Up Instructions / Follow-Up You were admitted for chest pain and heart palpitations. You did not have a heart attack. The heart palpitations may have been from a slightly elevated heart rate due to your nebulizer treatments and being slightly overmedicated with your thyroid medication. The dose of your levothyroxine was reduced to 137 mcg once daily down from 150 mcg once daily. Please have your family doctor repeat your thyroid function tests in about 6 weeks. Please continue to follow-up with your vibration analyst and your family doctor regarding your elevated blood pressures which did improve after admission. Your blood pressure medications were not changed. Please follow-up with the family doctor as scheduled for you within 1-2 weeks. Current Hospital Diet Patient's current hospital diet: Regular Diet Discharge Diet Recommended Diet: AHA Diet (Heart Healthy) Procedures Procedures Performed: Echocardiogram Chest x-ray Renal ultrasound Lower extremity Doppler ultrasound Pending Studies Studies pending at discharge: no Medical Emergencies . Who to Call and When: Medical Emergencies: If at any time you feel your situation is an emergency, please call 911 immediately. . Non-Emergent Contact Non-Emergency issues call your: Primary Care Provider Call Non-Emergent contact if: your pain is not controlled, your pain is worsening, your pain is unusual for you, your pain is concerning you, you have any medication questions . . "Provider Documentation" section prepared by Marta Kruse. .
--- NOTE | 2017-10-13 12:23 | Discharge Summary ---
Discharge Summary Date of Service Oct 13, 2017. Discharge Summary Admission Date: Oct 11, 2017 at 20:42 Discharge Date: Oct 13, 2017 Discharge Disposition: Home Principal Diagnosis: Atypical chest pain Problems/Secondary Diagnoses: Heart palpitations-likely sinus tachycardia Hypothyroidism Accelerated hypertension Myocardial demand ischemia Mild iatrogenic hyperthyroidism Morbid obesity - BMI 38 Solitary kidney status due to previous nephrectomy for renal cell carcinoma CKD stage 3 Mild intermittent asthma Hypomagnesemia Hyperlipidemia Asymptomatic bacteriuria - no Rx at this time. Anxiety disorder, NOS Severe LVH Chronic diastolic CHF Immunizations: Have You Had Influenza Vaccine: No History of Tetanus Vaccine?: Yes History of Pneumococcal: Yes History of Hepatitis B Vaccine: Yes Procedures: Echocardiogram Chest x-ray Lower extremity venous Doppler Renal ultrasound Doppler Consultations: None Medication Reconciliation New Medications: Levothyroxine Sodium (Levothyroxine Sodium) 137 Mcg Tab 1 TAB PO DAILY for 30 Days, #30 TAB 0 Refills Continued Medications: Albuterol Hfa (Ventolin Hfa) 200 Puffs/33049 Mcg Aers 2 PUFFS INH Q6H PRN for SOB/Wheezing Ascorbic Acid (Vitamin C) 500 Mg Tab 1 TAB PO QAM Aspirin (Aspirin Ec) 81 Mg Tab 81 MG PO QAM Atorvastatin (Lipitor) 20 Mg Tab 20 MG PO HS Cholecalciferol (Vitamin D 400 Iu) 400 Unit Cap 400 INTER.UNIT PO QAM Diltiazem Hcl Ext Rel (Tiazac) 300 Mg Capcr 300 MG PO QAM, CAP Docusate Sodium (Stool Softener) 100 Mg Cap 1 CAPSULES PO BID Doxazosin Mesylate (Cardura) 4 Mg Tab 4 MG PO BID, TAB Fish Oil (Leslie-3) 1 Ea Cap 1 CAP PO QAM Hydrochlorothiazide (Hctz) 25 Mg Tab 25 MG PO QAM, TAB Levalbuterol Hcl (Levalbuterol Hcl) 1.25 Mg/3 Ml Neb 1 DOSE NEB Q4 PRN for SOB/Wheezing Lorazepam (Lorazepam) 0.5 Mg Tab 1 TAB PO BID PRN for Anxiety Metoprolol Succinate (Metoprolol Succinate ER) 100 Mg Tabcr 100 MG PO BID Multiple Vitamins W/ Minerals (Centrum) 1 Tab Tab 1 TAB PO QAM Ocuvite Preservision (Ocuvite Preservision) 1 Tab Tab 1 TAB PO BID Olmesartan Medoxomil (Olmesartan Medoxomil) 20 Mg Tab 20 MG PO DAILY Potassium Chloride (Micro-K Ext Rel) 10 Meq Capcr 1 TAB PO BID Sertraline (Zoloft) 50 Mg Tab 50 MG PO HS, TAB Discontinued Medications: Levothyroxine Sodium (Levothyroxine Sodium) 150 Mcg Tab 150 MCG PO QAM Discharge Exam Patient feeling very well. Telemetry with only normal sinus rhythm and no arrhythmias. Patient denies chest pain or lightheadedness, denies shortness of breath, denies abdominal pain. She is tolerating p.o. without nausea or vomiting. Her blood pressures are much better controlled today. She is anxious for discharge. Review of Systems: Constitutional: No problem reported Eyes: No problem reported ENT: No problem reported Respiratory: No problem reported Cardiovascular: No problem reported Abdomen: No problem reported Musculoskeletal: No problem reported Genitourinary - Female: No problem reported Neurologic: No problem reported Psychiatric: No problem reported Endocrine: No problem reported Hematologic / Lymphatic: No problem reported Integumentary: No problem reported Physical Exam: General Appearance: WD/WN, no apparent distress Eyes: normal inspection, EOMI ENT: hearing grossly normal Neck: no adenopathy, trachea midline Respiratory/Chest: lungs clear, normal breath sounds, no respiratory distress, no accessory muscle use Cardiovascular: regular rate, rhythm, no edema, no gallop, + systolic murmur (2/6 at the LLSB) Abdomen / GI: normal bowel sounds, non tender, soft, no organomegaly Extremities: normal inspection, no calf tenderness, normal capillary refill , no pedal edema, normal range of motion Neurologic/Psychiatric: alert, normal mood/affect, oriented x 3 Skin: normal color, warm/dry, no rash Hospital Course This patient is an 82yo female who presented with atypical chest pain and heart palpitations. 1. Palpitations -she had no arrhythmia at all in 48 hours of cardiac monitoring during this admission. Possibilities include sinus tach from beta agonist use this past week vs sinus tach from iatrogenic hyperthyroidism vs anxiety-induced vs dysrhythmia. Continue beta christoph as per home dosing Adjust synthroid-lowered the dose to 137 mg once daily. She has had this issue in the past - could consider repeat outpatient monitor 2. Atypical chest pain - despite the mildly positive troponin which is likely myocardial demand ischemia from accelerated hypertension, and the fact that her pain is reproducible makes musculoskeletal etiology most likely. She has no ischemic changes on EKG, and echo is w/o wall motion abnormalities. Completely resolved at the time of discharge 3. mild iatrogenic hyperthyroidism - TSH in July was borderline low, and this TSH is also mildly low. In light of symptoms will REDUCE synthroid from 150mcg to 137mcg daily. Would d/c home on this lower dose and have her repeat TSH in 6 weeks. 4. HTN - accelerated - is on a 5-drug regimen. Previously just on 4 meds and ARB was added in the last 1-2 weeks as outpatient. Certainly concerning for a secondary cause of HTN. Renal doppler obtained - no KHUSHBU in the remaining kidney. Send renin/carina levels-pending at the time of discharge. #3 could be contributing. No h/o FREDY. Doubt pheochromocytoma. Since outpatient BPs had been running decently will defer on titrating any medication during this hospitalization-blood pressures are improved here prior to discharge She should continue to follow-up with her PCP and nephrology as an outpatient 5. Myocardial demand ischemia/positive troponin - likely demand ischemia in setting of #4 as well as her palpitations/tachycardia. 6. morbid obesity - BMI 38 -Needs weight loss counseling as an outpatient 7. solitary kidney status due to previous nephrectomy for renal cell ca - noted. Follows with nephrology 8. CKD stage 3 - creatinine stable today; Follows with nephrology 9. Mild intermittent asthma - does not appear to be in exacerbation at this time. 10. hypomagnesemia - likely due to HCTZ use - resolved. 11. hyperlipidemia -continue statin. 12. asymptomatic bacteriuria - no Rx at this time. Urine culture mixed organisms 13. anxiety - could consider titration of SSRI. Defer to outpatient PCP. 14. severe LVH on echo here due to long-standing HTN - continue beta christoph and good control blood pressure. 15. Chronic diastolic CHF-grade 1 diastolic dysfunction seen on echocardiogram she remains compensated at this time. Stable for discharge to home today Total Time Spent: Greater than 30 minutes This includes examination of the patient, discharge planning, medication reconciliation, and communication with other providers. Discharge Instructions Please refer to the electronic Patient Visit Report (Discharge Instructions) for additional information. Follow-Up With PCP within 1-2 weeks With nephrology as routinely scheduled Additional Copies To Amador Coleman M.D.; Joey Johnson D.O.
[2017-10-13 12:30] VITALS: BP 180/84; PULSE 64; TEMP 36.9; O2SAT 92
== END 2017-10-13 13:25 | disposition home or self-care (01) ==
LOC: C.EDB 18:28 → C.2T 20:42 → ENRESERV 20:50
PROVIDERS: ADMIT Hospitalist; ATTEND Family Medicine
DX: R07.89 Other chest pain (principal); R00.2 Palpitations; E03.9 Hypothyroidism, unspecified; I11.0 Hypertensive heart disease with heart failure; I24.8 Other forms of acute ischemic heart disease; E05.80 Other thyrotoxicosis without thyrotoxic crisis or storm; E66.01 Morbid (severe) obesity due to excess calories; Z68.38 Body mass index [BMI] 38.0-38.9, adult; Z90.5 Acquired absence of kidney; Z85.528 Personal history of other malignant neoplasm of kidney; N18.3 Chronic kidney disease, stage 3 (moderate); J45.909 Unspecified asthma, uncomplicated; E83.42 Hypomagnesemia; E78.5 Hyperlipidemia, unspecified; R82.71 Bacteriuria; F41.9 Anxiety disorder, unspecified; I50.32 Chronic diastolic (congestive) heart failure; Z79.899 Other long term (current) drug therapy; Z79.82 Long term (current) use of aspirin; I48.91 Unspecified atrial fibrillation; Z91.030 Bee allergy status; Z88.2 Allergy status to sulfonamides; Z88.1 Allergy status to other antibiotic agents; Z88.5 Allergy status to narcotic agent

== ENCOUNTER 2018-08-16 17:32 | Inpatient (IN) ==
[2018-08-16] MEDS ORDERED: ALBUT/IPRATROP 3MG/0.5MG NEB 3 ML VIAL NEB STA (18:10)
[2018-08-16] MEDS ORDERED: SODIUM CHLORIDE 0.9% 500 ML IV SCH (18:15)
--- NOTE | 2018-08-16 18:15 | Emergency Department Note ---
Entered by Teri Collado acting as a scribe for Joey Lockhart DO History of Present Illness General Chief complaint: Referred by Doctor Stated complaint: LOW PULSE RATE Time Seen by Provider: 08/16/18 18:00 Source: patient and family History of Present Illness Provider complaint: Shortness of breath Onset (ago): day(s) 9 Location: chest Pain Consistency: + other (worsening) Quality: + other (shortness of breath) Associated symptoms: + denies other symptoms (leg pain), + cough, + fever/chills (intermittent fever) and + other (positive for tired and fatigue) The patient is an 83 year old female who presents to the ED with complaints of worsening shortness of breath that began 9 days ago. The patient was at [facility] on 08/07/2018 for dehydration. Per sister, the patient has been having issues with her asthma as well. The patients sister states that the patient has been more tired and fatigue than normal and has been running an intermittent fever. The patient states that she does not wear oxygen at home to help her breathing. The patient denies pain in her legs. Home Medications Home Medications Medication Instructions Recorded Confirmed Type Centrum Silver 1 tab PO QAM 02/08/18 08/16/18 History PreserVision AREDS 1 tab PO BID 02/08/18 08/16/18 History ascorbic acid (vitamin C) 500 mg PO QAM 02/08/18 08/16/18 History aspirin 81 mg PO QAM 02/08/18 08/16/18 History atorvastatin 20 mg PO HS 02/08/18 08/16/18 History cholecalciferol (vitamin D3) 1,000 unit PO QAM 02/08/18 08/16/18 History [Vitamin D3] diltiazem HCl 300 mg PO QAM 02/08/18 08/16/18 History docusate sodium 100 mg PO BID 02/08/18 08/16/18 History doxazosin 4 mg PO BID 02/08/18 08/16/18 History levalbuterol HCl 1.25 mg INHALATION Q4 PRN 02/08/18 08/16/18 History levothyroxine 137 mcg PO QAM 02/08/18 08/16/18 History lorazepam 0.5 mg PO BID PRN 02/08/18 08/16/18 History omega 8-xve-yxa-fish oil [Fish Oil] 1 cap PO QPM 02/08/18 08/16/18 History potassium chloride [Klor-Con 10] 10 meq PO BID 02/08/18 08/16/18 History sertraline [Zoloft] 50 mg PO HS 02/08/18 08/16/18 History irbesartan 300 mg PO QAM 05/08/18 08/16/18 History acetaminophen-codeine 1 - 2 tab PO Q6H PRN #30 tab 05/23/18 08/16/18 Rx [Tylenol-Codeine #3] metoprolol succinate 100 mg PO BID 08/07/18 08/16/18 History albuterol sulfate [Ventolin HFA] 2 inh INHALATION Q4H PRN 08/16/18 08/16/18 History fluticasone propion-salmeterol 1 inh INHALATION BID 08/16/18 08/16/18 History [Advair Diskus] Allergies Allergy/AdvReac Type Severity Reaction Status Date / Time bee venom protein (honey bee) Allergy Intermediate HIVES Verified 08/16/18 18:19 Sulfa (Sulfonamide Allergy Unknown MOUTH Verified 08/16/18 18:19 Antibiotics) SWELLED/HIVES TO SULFA DRUGS gabapentin Allergy Rash Verified 08/16/18 18:19 nitrofurantoin AdvReac Severe CAUSES Verified 08/16/18 18:19 HEPATITUS hydromorphone AdvReac Intermediate HALLUCINATI Verified 08/16/18 18:19 ONS Past Med/Surg History Medical History Anxiety Asthma USES PRN INH 2 X WK ON AVG Atrial fibrillation DX YEARS AGO; FOLLOWS WITH DR. MALLOY Chronic kidney disease ONLY 1 KIDNEY FUNCTIONING 80%; FOLLOWS DR. LO Degenerative disc disease Hyperlipidemia Hypertension Had elevated BP's in February with f/u with PCM. Medication regimen altered. Will need to ensure DOS BP WNL. Hypothyroidism Liver enzyme elevation IN THE PAST (CURRENTLY WNL) Macular degeneration Osteoarthritis Surgical History Fusion of spine LUMBAR FUSION AND REVISION (2 SURGERIES) History of anesthesia reaction SLOW TO WAKE UP History of bladder surgery BLADDER TACK History of cardiac [place] [facility] [place] - REASON? - NO STENTS/ANGIOPLASTY History of carpal tunnel release RT/ LT History of cataract surgery BL History of colonoscopy History of esophagogastroduodenoscopy (EGD) History of hysterectomy AND OOPHERECTOMY History of thyroidectomy, subtotal History of tooth extraction History of total knee replacement RT/LEFT Family History Brother History of colon resection Other Family history non-contributory Social History Preferred Language: Maltese Communication Ability: Effective Beliefs That Will Affect Care: None Current Living Situation: Spouse Feels Safe at Home: Yes Smoking Status: Never smoker Second Hand Exposure: No Hx Alcohol Use: No Hx Substance Use: No Review of Systems See HPI for pertinent positives & negatives. and A total of 10 systems reviewed and were otherwise negative Physical Exam Vital Signs Vital Signs - 24 hr 08/16/18 17:35 08/16/18 17:59 08/16/18 18:24 Temperature 36.7 C Temperature Source Oral Sepsis Recent Fever Within 48 Hours Yes Sepsis Action Taken by Nursing No Action Required Pulse Rate 61 Pulse Rate [Left Finger] 65 64 Pulse Rhythm [Left Finger] Regular Pulse Strength [Left Finger] Respiratory Rate 18 18 18 Respiratory Effort / Characteristics Non-Labored Non-Labored Non-Labored Spontaneous Respiratory Depth Normal Normal Respiratory Pattern Regular Blood Pressure 138/76 Blood Pressure [Left Arm] 165/70 H Blood Pressure Mean 96 Blood Pressure Mean [Left Arm] 101 Pulse Oximetry 93 92 97 Oxygen Delivery Method Nasal Cannula Nasal Cannula Nasal Cannula Oxygen Flow Rate 4 2 2 08/16/18 19:24 08/16/18 19:40 Temperature Temperature Source Sepsis Recent Fever Within 48 Hours Sepsis Action Taken by Nursing Pulse Rate Pulse Rate [Left Finger] 73 Pulse Rhythm [Left Finger] Pulse Strength [Left Finger] Normal Respiratory Rate 19 Respiratory Effort / Characteristics Non-Labored Spontaneous Respiratory Depth Normal Respiratory Pattern Regular Blood Pressure Blood Pressure [Left Arm] 183/79 H Blood Pressure Mean Blood Pressure Mean [Left Arm] 113 Pulse Oximetry 94 94 Oxygen Delivery Method Nasal Cannula Nasal Cannula Oxygen Flow Rate 2 2 CONSTITUTIONAL/VITAL SIGNS: Reviewed / noted above. GENERAL: Non-toxic in appearance. INTEGUMENTARY: Warm, dry, and [place]. HEAD: Normocephalic. EYES: without scleral icterus or trauma. ENT/OROPHARYNX: clear and moist. LYMPHADENOPATHY/NECK: Is supple without lymphadenopathy or meningismus. RESPIRATORY: Lungs clear and equal but slightly diminished bilaterally. CARDIOVASCULAR: Regular rate and rhythm. GI/ABDOMEN: Soft and nontender. No organomegaly or pulsatile mass. No rebound or guarding. Normal bowel sounds. EXTREMITIES: Warm and well perfused. BACK: No CVA tenderness. NEUROLOGICAL: Intact without focal deficits. PSYCHIATRIC: normal affect. MUSCULOSKELETAL: Normally developed with good muscle tone. TRIAGE NURSING DOCUMENTATION REVIEWED. Course 180: Past medical records reviewed. The patient was evaluated in room B8. A com plete history and physical exam was performed. 6: I [facility] the [facility] They will be evaluating the patient for further management. 1950: I updated the patient about their test results and treatment plan. They verbally agree and understand. Consultations Consultation #1: I discussed the patient's case with Dr. Curtis [facility] Hospitalists. They will be evaluating the patient for further management. Time: 19:46 Administered Medications Discontinued Medications Albuterol (Duoneb) 3 ml NEB NOW STA Stop: 08/16/18 18:11 Last Admin: 08/16/18 18:24 Dose: 3 ml Documented by: [id number] Sodium Chloride (Nss) 500 mls @ 999 mls/hr IV .Q31M JACQUES Stop: 08/16/18 18:45 Last Admin: 08/16/18 19:27 Dose: 999 mls/hr Documented by: [id number] Medical Decision Making Differential Diagnosis The differential was considered includes acute myocardial infarction, acute coronary syndrome, myocarditis, pericarditis, pericardial effusions /tamponad, esophageal perforation, pulmonary embolism, pneumonia, pneumothorax, cardiomyopathy, congestive heart, anemia , COPD/asthma exacerbation. Medical Records Attestation: I reviewed the patient's medical records. Home Medications Current Medication List: was personally reviewed by me Laboratory Data Attestation: I reviewed the patient's lab results. Result diagrams: 08/16/18 19:05 08/16/18 19:05 Lab Results 08/16/18 08/16/18 08/16/18 Range/Units 19:05 19:05 19:05 WBC 10.84 H (4.8-10.8) K/uL RBC 4.14 L (4.2-5.4) M/uL Hgb 13.0 (12.0-16.0) g/dL Hct 37.5 (37-47) % MCV 90.6 (80-100) fL MCH 31.4 (25-34) pg MCHC 34.7 (32-36) g/dL RDW Std Deviation 48.1 H (36.4-46.3) fL RDW Coeff of Yanelis 14.6 H (11.5-14.5) % Plt Count 211 (130-400) K/uL MPV 9.2 (7.4-10.4) fL Immature Gran % (Auto) 0.3 % Neut % (Auto) 72.0 % Lymph % (Auto) 15.9 % Cochran % (Auto) 10.1 % Eos % (Auto) 1.2 % Baso % (Auto) 0.5 % Immature Gran # (Auto) 0.03 H (0.00-0.02) K/uL Neut # (Auto) 7.81 H (1.4-6.5) K/uL Lymph # (Auto) 1.72 (1.2-3.4) K/uL Cochran # (Auto) 1.10 H (0.11-0.59) K/uL Eos # (Auto) 0.13 (0-0.5) K/uL Baso # (Auto) 0.05 (0-0.2) K/uL PT 12.3 H (9.0-12.0) Seconds INR 1.2 H (0.9-1.1) Sodium (136-145) mmol/L Potassium (3.5-5.1) mmol/L Chloride (98-107) mmol/L Carbon Dioxide (21-32) mmol/L Anion Gap (3-11) BUN (7-18) mg/dl Creatinine (0.6-1.2) mg/dl Est Cr Clr Drug Dosing ml/min Est GFR ( Amer) Est GFR (Non-Af Amer) BUN/Creatinine Ratio (10-20) Glucose (70-99) mg/dl Lactate 1.3 (0.4-2.0) mmol/L Calcium (8.5-10.1) mg/dl Magnesium (1.8-2.4) mg/dl Total Bilirubin (0.2-1) mg/dl AST (15-37) U/L ALT (12-78) U/L Alkaline Phosphatase (45-117) U/L Troponin I (0-0.045) ng/ml Total Protein (6.4-8.2) gm/dl Albumin (3.4-5.0) gm/dl Globulin (2.5-4.0) gm/dl Albumin/Globulin Ratio (0.9-2) TSH (0.300-4.500) uIu/ml 08/16/18 Range/Units 19:05 WBC (4.8-10.8) K/uL RBC (4.2-5.4) M/uL Hgb (12.0-16.0) g/dL Hct (37-47) % MCV (80-100) fL MCH (25-34) pg MCHC (32-36) g/dL RDW Std Deviation (36.4-46.3) fL RDW Coeff of Yanelis (11.5-14.5) % Plt Count (130-400) K/uL MPV (7.4-10.4) fL Immature Gran % (Auto) % Neut % (Auto) % Lymph % (Auto) % Cochran % (Auto) % Eos % (Auto) % Baso % (Auto) % Immature Gran # (Auto) (0.00-0.02) K/uL Neut # (Auto) (1.4-6.5) K/uL Lymph # (Auto) (1.2-3.4) K/uL Cochran # (Auto) (0.11-0.59) K/uL Eos # (Auto) (0-0.5) K/uL Baso # (Auto) (0-0.2) K/uL PT (9.0-12.0) Seconds INR (0.9-1.1) Sodium 141 (136-145) mmol/L Potassium 4.5 (3.5-5.1) mmol/L Chloride 107 (98-107) mmol/L Carbon Dioxide 25 (21-32) mmol/L Anion Gap 9.0 (3-11) BUN 40 H (7-18) mg/dl Creatinine 1.64 H (0.6-1.2) mg/dl Est Cr Clr Drug Dosing 24.5 ml/min Est GFR ( Amer) 32.9 Est GFR (Non-Af Amer) 28.4 BUN/Creatinine Ratio 24.6 H (10-20) Glucose 108 H (70-99) mg/dl Lactate (0.4-2.0) mmol/L Calcium 10.0 (8.5-10.1) mg/dl Magnesium 2.2 (1.8-2.4) mg/dl Total Bilirubin 0.8 (0.2-1) mg/dl AST 15 (15-37) U/L ALT 21 (12-78) U/L Alkaline Phosphatase 75 (45-117) U/L Troponin I 0.019 (0-0.045) ng/ml Total Protein 7.6 (6.4-8.2) gm/dl Albumin 3.8 (3.4-5.0) gm/dl Globulin 3.8 (2.5-4.0) gm/dl Albumin/Globulin Ratio 1.0 (0.9-2) TSH 2.330 (0.300-4.500) uIu/ml Imaging Data Attestation: I personally reviewed and interpreted this imaging study as follows: Radiologist's Impression: Radiology results as stated below per my review and the radiologist's interpretation: XR chest 1V portable CLINICAL HISTORY: 83 years-old Female presenting with weakness. TECHNIQUE: Portable upright AP view of the chest was obtained. COMPARISON: 08/07/2018. FINDINGS: Atherosclerosis of the aortic arch. Cardiac silhouette enlarged. Prominence of the main pulmonary artery. Mildly low lung volumes. Mild pulmonary vascular prominence. Left retrocardiac opacity. Trace bilateral pleural effusions may be present. No pneumothorax. Sclerotic lesion in the proximal metaphysis of the left humerus as on prior exam, possibly bone island or less likely a chondroid lesion. Upper abdomen normal. IMPRESSION: 1. Cardiomegaly with pulmonary artery hypertension and mild volume overload. No maximino pulmonary edema. 2. Left retrocardiac opacity may relate to atelectasis or less likely underlying infiltrate. 3. Trace bilateral pleural effusions. Electronically signed by: Jorge Orellana M.D. 08/16/2018 6:27 PM ECG Data Attestation: I personally reviewed and interpreted this ECG as follows: Indication: SOB/dyspnea Rate (beats per minute): 68 Rhythm: normal sinus Findings: no PAC, no PVC, no ST elevation and no ectopy Blood Pressure Blood Pressure Findings: Elevated blood pressure Blood Pressure Disposition: further management by hospitalist MDM Narrative This is a 83-year-old female who presents to the ED with a chief complaint of hypoxia. The patient has been tired and fatigued recently and has been having some intermittent fevers at home as well as a cough. She states that it is going on for a while. The patient was seen by the PCP today and was found to be hypoxic on room air. She does not use oxygen at home. Here she is 84% on room air. The patient has a relatively normal exam. Her lungs are slightly diminished but no coarse rhonchi or rales were heard. She has minimal edema around the ankles but otherwise no significant pedal edema. The patient is resting comfortably on oxygen with oxygen saturations in the mid 90s. She is in no distress. The chest x-ray reveals a left retrocardiac infiltrate and some pulmonary artery hypertension. An EKG shows a normal sinus rhythm. White blood cell count was 10.8. BUN is 40 and creatinine is 1.64. These appear to be mostly chronic. The patient was given a DuoNeb treatment. She was given IV Rocephin and IV Zithromax. Because of her hypoxia, the patient will be seen by the hospitalist for further inpatient evaluation and care. Impression & Plan Pneumonia, Weakness, Hypoxia Discharge Plan Visit Data Chief Complaint: Referred by Doctor Stated Complaint: LOW PULSE RATE ED Provider: Joey Lockhart Discharge Problem: Pneumonia, Weakness, Hypoxia Patient Disposition: Being Evaluated by Hospitalist Forms Stand Alone Forms: [facility] Prescriptions Prescriptions: No Action atorvastatin 20 mg Tablet 20 mg PO HS RF: 0 docusate sodium 100 mg Capsule 100 mg PO BID RF: 0 levalbuterol HCl 1.25 mg/3 mL Solution For Nebulization 1.25 mg INHALATION Q4 PRN (Reason: Shortness Of Breath) RF: 0 cholecalciferol (vitamin D3) [Vitamin D3] 1,000 unit Tablet 1,000 unit PO QAM RF: 0 PreserVision AREDS 7,160-113-100 [id number] Tablet 1 tab PO BID RF: 0 fluticasone propion-salmeterol [Advair Diskus] 250-50 mcg/dose blister with device 1 inh inhalation BID RF: 0 albuterol sulfate [Ventolin HFA] 90 mcg/actuation HFA aerosol inhaler 2 inh inhalation Q4H PRN (Reason: Shortness Of Breath Or Wheezing) RF: 0 potassium chloride [Klor-Con 10] 10 mEq Tablet Extended Release 10 meq PO BID RF: 0 aspirin 81 mg Tablet,Delayed Release (Dr/Ec) 81 mg PO QAM RF: 0 lorazepam 0.5 mg Tablet 0.5 mg PO BID PRN (Reason: Anxiety) RF: 0 diltiazem HCl 300 mg Capsule,Extended Release 24hr 300 mg PO QAM RF: 0 doxazosin 4 mg Tablet 4 mg PO BID RF: 0 sertraline [Zoloft] 50 mg Tablet 50 mg PO HS RF: 0 Centrum Silver 0.4-300-250 mg-mcg-mcg Tablet 1 tab PO QAM RF: 0 omega 6-tkv-njy-fish oil [Fish Oil] 1,000 mg (120 mg-180 mg) Capsule 1 cap PO QPM RF: 0 levothyroxine 137 mcg Capsule 137 mcg PO QAM RF: 0 ascorbic acid (vitamin C) 500 mg Capsule 500 mg PO QAM RF: 0 irbesartan 300 mg Tablet 300 mg PO QAM RF: 0 acetaminophen-codeine [Tylenol-Codeine #3] 300-30 mg tablet 1 - 2 tab PO Q6H PRN (Reason: pain) Qty: 30 RF: 0 metoprolol succinate 100 mg Tablet Extended Release 24 Hr 100 mg PO BID RF: 0 Referrals Referrals: Thomas Coleman MD [Primary Care Provider] - Discharge Problem: Pneumonia Qualifiers: Pneumonia type: due to unspecified organism The scribe's documentation has been prepared under my direction and personally reviewed by me in its entirety. I confirm that the note above accurately reflects all work, treatment, procedures, and medical decision making performed by me.
--- NOTE | 2018-08-16 18:28 | XRay Report ---
XR chest 1V portable CLINICAL HISTORY: 83 years-old Female presenting with weakness. TECHNIQUE: Portable upright AP view of the chest was obtained. COMPARISON: 08/07/2018. FINDINGS: Atherosclerosis of the aortic arch. Cardiac silhouette enlarged. Prominence of the main pulmonary art keon. Mildly low lung volumes. Mild pulmonary vascular prominence. Left retrocardiac opacity. Trace bi lateral pleural effusions may be present. No pneumothorax. Sclerotic lesion in the proximal metaphysi s of the left humerus as on prior exam, possibly bone island or less likely a chondroid lesion. Upper abdomen normal. IMPRESSION: 1. Cardiomegaly with pulmonary artery hypertension and mild volume overload. No maximino pulmonary geoffrey a. 2. Left retrocardiac opacity may relate to atelectasis or less likely underlying infiltrate. 3. Trace bilateral pleural effusions. Electronically signed by: Jorge Orellana M.D. 08/16/2018 6:27 PM
[2018-08-16 19:21] LABS: Basophils # (auto) 0.05 K/uL (0-0.2); Basophils % (auto) 0.5 %; Eosinophils # (auto) 0.13 K/uL (0-0.5); Eosinophils % (auto) 1.2 %; Hematocrit (blood only) 37.5 % (37-47); Immature Granulocytes # (auto) 0.03 K/uL (0.00-0.02); Immature Granulocytes % (auto) 0.3 %; Lymphocytes # (auto) 1.72 K/uL (1.2-3.4); Lymphocytes % (auto) 15.9 %; Mean Corpuscular Hgb Conc 34.7 g/dL (32-36); Mean Corpuscular Volume 90.6 fL (80-100); Mean Platelet Volume 9.2 fL (7.4-10.4); Monocytes % (auto) 10.1 %; Neutrophils # (auto) 7.81 K/uL (1.4-6.5); Platelet Count 211 K/uL (130-400); RDW Coefficient of Variation 14.6 % (11.5-14.5); RDW Standard Deviation 48.1 fL (36.4-46.3); Red Blood Count 4.14 M/uL (4.2-5.4); White Blood Count 10.84 K/uL (4.8-10.8)
[2018-08-16] MEDS ORDERED: AZITHROMYCIN 500 MG in DEXTROSE 5% 250 ML IV ONE (19:31)
[2018-08-16] MEDS ORDERED: cefTRIAXone SODIUM 1,000 MG in DEXTROSE 5% 50 ML IV STA (19:31)
[2018-08-16 19:41] LABS: Albumin Level 3.8 gm/dl (3.4-5.0); BUN Creatinine Ratio 24.6 (10-20); Creatinine Clr Calc Pharmacy 24.5 ml/min; Est GFR (African American) 32.9; Est GFR (Non-African American) 28.4; INR 1.2 (0.9-1.1); Magnesium 2.2 mg/dl (1.8-2.4); Potassium 4.5 mmol/L (3.5-5.1); Prothrombin Time 12.3 Seconds (9.0-12.0)
[2018-08-16 19:51] LABS: Bilirubin,Total 0.8 mg/dl (0.2-1); Globulin 3.8 gm/dl (2.5-4.0); Total Protein 7.6 gm/dl (6.4-8.2); Troponin I 0.019 ng/ml (0-0.045)
[2018-08-16] MEDS ORDERED: ACETAMINOPHEN W/CODEINE #3 1 TAB PO PRN (20:57)
[2018-08-16] MEDS ORDERED: LEVALBUTEROL HCL 1.25 MG/3 ML NEB INH PRN (20:57)
--- NOTE | 2018-08-16 21:45 | History & Physical Report ---
Date of Service August 16, 2018 Assessment & Plan (1) Pneumonia: Patient is a pleasant 83yo F PMH asthma, CAD, HTN, HLD, hypothyroid, anxiety, CKD III (baseline 1.5-1.7), aortic stenosis, who presents with a 2 week history of fatigue, shortness of breath, HAYNES, and 5-6 days of subjective fevers. Pneumonia/Hypoxia/Asthma/Weakness -CXR not convincing, will treat in light of fevers with rocephin/azithro -Will check procal in AM -Duonebs and pulmicort respules -Incentive spirometry -Consider overnight pulse ox -Consider outpt sleep study for pulm art HTN/?OHS -Gentle IVF NSS @40 -Not diuresing at this time -PT/OT ordered CKD III, H/O RCC s/p L nephrectomy and partial R nephrectomy -Gentle IVF, close to baseline of 1.5 HTN/Paroxysmal SVT -Cont home meds -Consider restarting thiazide? HLD -Cont atorvastatin 20 CAD with Aortic stenosis -Recent echo June 2018 showed EF 60-65, Aortic valve area of 1.5cm^2 -Cont ASA Hypothyroid s/p thyroidectomy -Cont home levothyroxine Anxiety -Cont lorazepam prn and sertaline Code: Full DVTP: Heparin SQ BID Dispo: admit to med/surg. Lives at home with who has dementia. Pt is primary caregiver, daughter lives 2 homes down and is helping to care while pt in hospital. (2) Hypoxia: (3) Weakness: (4) Stage III chronic kidney disease: (5) Asthma: (6) H/O thyroidectomy: (7) Hypothyroidism: (8) Hypertension: (9) Aortic stenosis: (10) Carotid artery plaque: (11) Hyperlipidemia: (12) Anxiety: History of Present Illness Chief Complaint: pneumonia Primary Care Provider: Amador Coleman MD Patient is a pleasant 83yo F PMH asthma, CAD, HTN, HLD, hypothyroid, anxiety, CKD III (baseline 1.5-1.7), aortic stenosis, who presents with a 2 week history of fatigue, shortness of breath, HAYNES, and 5-6 days of subjective fevers. She presented to the ER at the start of her symptoms with nausea and headache, where she was found to be dehydrated. She went to her PCP clinic this afternoon for continued/worsening symptoms who noted that after walking in, her O2sat was 84%. This did come up to 93% on resting, but in-office ambulatory oxygen test revealed desaturation to 86% on RA. She was directed to come to the ER for further evaluation. She does note she has been using her prn inhalers more frequently in the past few days. Of note, she was also taken off of her HCTZ/spironolactone 1-2 weeks ago for labile BPs. She follows with Dr. Kaplan/Filemon De La Cruz for pulmonary nodules and ?chemical aerosol exposure. Has not had PFTs in "a long time." She notes she has been actively eating and drinking well since she was told she was dehydrated from the ER. ER course revealed WBC count 10.84, normal BMP aside from Creat 1.64, around baseline. Lactate negative. CXR reveals trace pleural effusion, possible infiltrate vs atelectasis, pulm art HTN. She was given a duoneb and started on rocephin/azithro. Allergies Allergy/AdvReac Type Severity Reaction Status Date / Time bee venom protein (honey bee) Allergy Intermediate HIVES Verified 08/16/18 18:19 Sulfa (Sulfonamide Allergy Unknown MOUTH Verified 08/16/18 18:19 Antibiotics) SWELLED/HIVES TO SULFA DRUGS gabapentin Allergy Rash Verified 08/16/18 18:19 nitrofurantoin AdvReac Severe CAUSES Verified 08/16/18 18:19 HEPATITUS hydromorphone AdvReac Intermediate HALLUCINATI Verified 08/16/18 18:19 ONS Home Medications Home Medications Medication Instructions Recorded Confirmed Type Centrum Silver 1 tab PO QAM 02/08/18 08/16/18 History PreserVision AREDS 1 tab PO BID 02/08/18 08/16/18 History ascorbic acid (vitamin C) 500 mg PO QAM 02/08/18 08/16/18 History aspirin 81 mg PO QAM 02/08/18 08/16/18 History atorvastatin 20 mg PO HS 02/08/18 08/16/18 History cholecalciferol (vitamin D3) 1,000 unit PO QAM 02/08/18 08/16/18 History [Vitamin D3] diltiazem HCl 300 mg PO QAM 02/08/18 08/16/18 History docusate sodium 100 mg PO BID 02/08/18 08/16/18 History doxazosin 4 mg PO BID 02/08/18 08/16/18 History levalbuterol HCl 1.25 mg INHALATION Q4 PRN 02/08/18 08/16/18 History levothyroxine 137 mcg PO QAM 02/08/18 08/16/18 History lorazepam 0.5 mg PO BID PRN 02/08/18 08/16/18 History omega 0-sab-rme-fish oil [Fish Oil] 1 cap PO QPM 02/08/18 08/16/18 History potassium chloride [Klor-Con 10] 10 meq PO BID 02/08/18 08/16/18 History sertraline [Zoloft] 50 mg PO HS 02/08/18 08/16/18 History irbesartan 300 mg PO QAM 05/08/18 08/16/18 History acetaminophen-codeine 1 - 2 tab PO Q6H PRN #30 tab 05/23/18 08/16/18 Rx [Tylenol-Codeine #3] metoprolol succinate 100 mg PO BID 08/07/18 08/16/18 History albuterol sulfate [Ventolin HFA] 2 inh INHALATION Q4H PRN 08/16/18 08/16/18 History fluticasone propion-salmeterol 1 inh INHALATION BID 08/16/18 08/16/18 History [Advair Diskus] Past Med/Surg History Medical History Anxiety Asthma USES PRN INH 2 X WK ON AVG Atrial fibrillation DX YEARS AGO; FOLLOWS WITH DR. MALLOY Chronic kidney disease ONLY 1 KIDNEY FUNCTIONING 80%; FOLLOWS DR. LO Degenerative disc disease Hyperlipidemia Hypertension Had elevated BP's in February with f/u with PCM. Medication regimen altered. Will need to ensure DOS BP WNL. Hypothyroidism Liver enzyme elevation IN THE PAST (CURRENTLY WNL) Macular degeneration Osteoarthritis Surgical History Fusion of spine LUMBAR FUSION AND REVISION (2 SURGERIES) History of anesthesia reaction SLOW TO WAKE UP History of bladder surgery BLADDER TACK History of cardiac cath [facility] - MANY YEARS AGO - REASON? - NO STENTS/ANGIOPLASTY History of carpal tunnel release RT/ LT History of cataract surgery BL History of colonoscopy History of esophagogastroduodenoscopy (EGD) History of hysterectomy AND OOPHERECTOMY History of thyroidectomy, subtotal History of tooth extraction History of total knee replacement RT/LEFT Family History Brother History of colon resection Other Family history non-contributory Social History Preferred Language: Cymro Communication Ability: Effective Business Development Coordinator Required: No Beliefs That Will Affect Care: None Current Living Situation: Spouse Other Information That Helps Us Care for You: No Feels Safe at Home: Yes Safety Concerns: Feels Safe At This Time Smoking Status: Never smoker Second Hand Exposure: No Hx Alcohol Use: No Hx Substance Use: No Review of Systems Review of Systems: All systems reviewed & are unremarkable except as noted in HPI & below Constitutional: + fever, + body aches, + fatigue, + malaise and + weakness Ear, Nose, Mouth, Throat: no nasal congestion and no sore throat Respiratory: + cough, + dyspnea and + dyspnea on exertion Cardiovascular: + dyspnea on exertion and + lightheadedness; no chest pain, no chest pain at rest, no radiating jaw, neck or arm pain and no palpitations Gastrointestinal: + constipation; no abdominal pain, no nausea and no vomiting Genitourinary: + urinary frequency (Has been trying to drink a lot for dehydration) Neurologic: + unsteadiness and + generalized weakness; no syncope and no headache(s) Endocrine: + fatigue Physical Exam Constitutional: WD/WN, vitals as above + obese; no acute distress, not in distress and not diaphoretic Eyes: PERRL, conjunctivae normal, anicteric sclerae ENMT: external ear and nose normal, oropharynx normal Mouth: + dry oral mucous membranes Neck: normal visual inspection Respiratory: normal respiratory effort; no respiratory distress and no labored breathing Auscultation: + wheezes (end expiratory in upper lobes bilaterally) Cardiovascular: Rate/Rhythm: regular rate and regular rhythm Extremities: + edema (1+ bilateral to klein) Gastrointestinal (Abdomen): normal bowel sounds, soft, nontender, no hepatosplenomegaly Musculoskeletal: no cyanosis or clubbing, extremities motor strength 5/5 Skin: no rashes, warm and dry Neurologic: PERRL, EOMI, accommodation nl, no face palsy, no dysarthria Psychiatric: A+Ox3, euthymic affect Results & Data Vital Signs (Past 12 Hours) Vital Signs Temp Pulse Pulse Resp BP BP Pulse Ox 08/16/18 20:30 73 20 150/93 H 94 08/16/18 20:04 76 23 190/85 H 92 08/16/18 19:40 94 08/16/18 19:24 73 19 183/79 H 94 08/16/18 18:24 64 18 97 08/16/18 17:59 65 18 165/70 H 92 08/16/18 17:35 36.7 C 61 18 138/76 93 Laboratory Results 08/16/18 08/16/18 08/16/18 Range/Units 19:05 19:05 19:05 WBC 10.84 H (4.8-10.8) K/uL RBC 4.14 L (4.2-5.4) M/uL Hgb 13.0 (12.0-16.0) g/dL Hct 37.5 (37-47) % MCV 90.6 (80-100) fL MCH 31.4 (25-34) pg MCHC 34.7 (32-36) g/dL RDW Std Deviation 48.1 H (36.4-46.3) fL RDW Coeff of Yanelis 14.6 H (11.5-14.5) % Plt Count 211 (130-400) K/uL MPV 9.2 (7.4-10.4) fL Immature Gran % (Auto) 0.3 % Neut % (Auto) 72.0 % Lymph % (Auto) 15.9 % [place] % (Auto) 10.1 % Eos % (Auto) 1.2 % Baso % (Auto) 0.5 % Immature Gran # (Auto) 0.03 H (0.00-0.02) K/uL Neut # (Auto) 7.81 H (1.4-6.5) K/uL Lymph # (Auto) 1.72 (1.2-3.4) K/uL [place] # (Auto) 1.10 H (0.11-0.59) K/uL Eos # (Auto) 0.13 (0-0.5) K/uL Baso # (Auto) 0.05 (0-0.2) K/uL PT (9.0-12.0) Seconds INR (0.9-1.1) Sodium 141 (136-145) mmol/L Potassium 4.5 (3.5-5.1) mmol/L Chloride 107 (98-107) mmol/L Carbon Dioxide 25 (21-32) mmol/L Anion Gap 9.0 (3-11) BUN 40 H (7-18) mg/dl Creatinine 1.64 H (0.6-1.2) mg/dl Est Cr Clr Drug Dosing 24.5 ml/min Est GFR ( Amer) 32.9 Est GFR (Non-Af Amer) 28.4 BUN/Creatinine Ratio 24.6 H (10-20) Glucose 108 H (70-99) mg/dl Lactate 1.3 (0.4-2.0) mmol/L Calcium 10.0 (8.5-10.1) mg/dl Magnesium 2.2 (1.8-2.4) mg/dl Total Bilirubin 0.8 (0.2-1) mg/dl AST 15 (15-37) U/L ALT 21 (12-78) U/L Alkaline Phosphatase 75 (45-117) U/L Troponin I 0.019 (0-0.045) ng/ml Total Protein 7.6 (6.4-8.2) gm/dl Albumin 3.8 (3.4-5.0) gm/dl Globulin 3.8 (2.5-4.0) gm/dl Albumin/Globulin Ratio 1.0 (0.9-2) TSH 2.330 (0.300-4.500) uIu/ml 08/16/18 Range/Units 19:05 WBC (4.8-10.8) K/uL RBC (4.2-5.4) M/uL Hgb (12.0-16.0) g/dL Hct (37-47) % MCV (80-100) fL MCH (25-34) pg MCHC (32-36) g/dL RDW Std Deviation (36.4-46.3) fL RDW Coeff of Yanelis (11.5-14.5) % Plt Count (130-400) K/uL MPV (7.4-10.4) fL Immature Gran % (Auto) % Neut % (Auto) % Lymph % (Auto) % [place] % (Auto) % Eos % (Auto) % Baso % (Auto) % Immature Gran # (Auto) (0.00-0.02) K/uL Neut # (Auto) (1.4-6.5) K/uL Lymph # (Auto) (1.2-3.4) K/uL [place] # (Auto) (0.11-0.59) K/uL Eos # (Auto) (0-0.5) K/uL Baso # (Auto) (0-0.2) K/uL PT 12.3 H (9.0-12.0) Seconds INR 1.2 H (0.9-1.1) Sodium (136-145) mmol/L Potassium (3.5-5.1) mmol/L Chloride (98-107) mmol/L Carbon Dioxide (21-32) mmol/L Anion Gap (3-11) BUN (7-18) mg/dl Creatinine (0.6-1.2) mg/dl Est Cr Clr Drug Dosing ml/min Est GFR ( Amer) Est GFR (Non-Af Amer) BUN/Creatinine Ratio (10-20) Glucose (70-99) mg/dl Lactate (0.4-2.0) mmol/L Calcium (8.5-10.1) mg/dl Magnesium (1.8-2.4) mg/dl Total Bilirubin (0.2-1) mg/dl AST (15-37) U/L ALT (12-78) U/L Alkaline Phosphatase (45-117) U/L Troponin I (0-0.045) ng/ml Total Protein (6.4-8.2) gm/dl Albumin (3.4-5.0) gm/dl Globulin (2.5-4.0) gm/dl Albumin/Globulin Ratio (0.9-2) TSH (0.300-4.500) uIu/ml Diagnostic Findings XR chest 1V portable CLINICAL HISTORY: 83 years-old Female presenting with weakness. TECHNIQUE: Portable upright AP view of the chest was obtained. COMPARISON: 08/07/2018. FINDINGS: Atherosclerosis of the aortic arch. Cardiac silhouette enlarged. Prominence of the main pulmonary artery. Mildly low lung volumes. Mild pulmonary vascular prominence. Left retrocardiac opacity. Trace bilateral pleural effusions may be present. No pneumothorax. Sclerotic lesion in the proximal metaphysis of the left humerus as on prior exam, possibly bone island or less likely a chondroid lesion. Upper abdomen normal. IMPRESSION: 1. Cardiomegaly with pulmonary artery hypertension and mild volume overload. No maximino pulmonary edema. 2. Left retrocardiac opacity may relate to atelectasis or less likely underlying infiltrate. 3. Trace bilateral pleural effusions. Electronically signed by: Jorge Orellana M.D. 08/16/2018 6:27 PM Code Status & VTE Plan Code Status full Supervising Physician Co-Signing Physician Notes Attending addendum: I have physically seen this patient, have supervised the medical residents activities, and agree with the H&P unless as otherwise noted. Assessment and Plan: Pneumonia involving left lower lobe/hypoxia/asthma- Ceftriaxone 1 g IV daily. Azithromycin 500 mg IV daily. Sputum Gram stain and culture. Incentive spirometry. Pulmicort Respules 0.5 mg inhaled twice daily. Duo nebs 4 times daily and every 2 hours as needed. Titrate oxygen via nasal cannula to keep pulse ox in the 92% range. Remainder of orders and notations as noted. PG Care Time/CCT Total # of Minutes Spent Total Time Spent with Patient: Total time spent is greater than 50% in coordination of care (as documented) at patient's floor/unit and/or counseling patient: Resident Activity Tracking Resident Involvement: Resident Care Provided Care Provided: Adult Hospital Medicine (1) Pneumonia Pneumonia type: due to unspecified organism
[2018-08-16] MEDS ORDERED: MAGNESIUM HYDROXIDE SUSP 30 ML UDC PO PRN (23:14)
[2018-08-16] MEDS ORDERED: ACETAMINOPHEN 325 MG TAB PO PRN (23:14)
[2018-08-16] MEDS ORDERED: SODIUM CHLORIDE 0.9% 1000ML 1,000 ML IV SCH (23:14)
[2018-08-16] MEDS ORDERED: POLYETHYLENE (MIRALAX) 17 GM PACK PO PRN (23:14)
[2018-08-16] MEDS ORDERED: BUDESONIDE 0.25 MG/2 ML VIAL (PULMICORT) NEB PRN (23:14)
[2018-08-16] MEDS ORDERED: ALUMINUM/MAGNESIUM SUSP 30 ML UDC PO PRN (23:14)
[2018-08-16] MEDS: FLUTICASONE/SALMETEROL 250/50 (ADVAIR) 14 PUFF/1 INHALER INH SCH (23:46)
[2018-08-16] MEDS: POTASSIUM CHLORIDE 10 MEQ TABCR PO SCH (23:47)
[2018-08-16] MEDS: SERTRALINE HCL 50 MG TABLET PO SCH (23:48)
[2018-08-16] MEDS: DOCUSATE SODIUM 100 MG CAP PO SCH (23:48)
[2018-08-16] MEDS: METOPROLOL SUCC 50MG EXT REL TAB PO SCH (23:49)
[2018-08-16] MEDS: DOXAZosin MESYLATE 4 MG TAB PO SCH (23:50)
[2018-08-16] MEDS: ATORVASTATIN 20 MG TAB PO SCH (23:50)
[2018-08-16] MEDS: ALBUT/IPRATROP 3MG/0.5MG NEB 3 ML VIAL NEB SCH (23:57)
[2018-08-17] MEDS: ALBUT/IPRATROP 3MG/0.5MG NEB 3 ML VIAL NEB SCH ×6 (03:42→23:19)
[2018-08-17] MEDS: LEVOTHYROXINE SODIUM 137 MCG TABLET PO SCH (06:26)
[2018-08-17] MEDS: METOPROLOL SUCC 50MG EXT REL TAB PO SCH ×2 (07:37→20:48)
[2018-08-17] MEDS: HEPARIN SOD 5,000 UNIT/0.5 ML VIAL SQ SCH ×2 (07:39→20:50)
[2018-08-17] MEDS: IRBESARTAN 150 MG TAB PO SCH (07:39)
[2018-08-17] MEDS: dilTIAZem HCL 300 MG CAPCR PO SCH (07:39)
[2018-08-17] MEDS: DOXAZosin MESYLATE 4 MG TAB PO SCH ×2 (07:40→20:50)
[2018-08-17] MEDS: POTASSIUM CHLORIDE 10 MEQ TABCR PO SCH ×2 (07:40→20:49)
[2018-08-17] MEDS: DOCUSATE SODIUM 100 MG CAP PO SCH ×2 (07:41→20:50)
[2018-08-17] MEDS: FLUTICASONE/SALMETEROL 250/50 (ADVAIR) 14 PUFF/1 INHALER INH SCH ×2 (07:42→20:48)
[2018-08-17 08:22] LABS: Basophils # (auto) 0.04 K/uL (0-0.2); Basophils % (auto) 0.3 %; Eosinophils # (auto) 0.19 K/uL (0-0.5); Eosinophils % (auto) 1.6 %; Hematocrit (blood only) 36.9 % (37-47); Hemoglobin 12.1 g/dL (12.0-16.0); Immature Granulocytes # (auto) 0.04 K/uL (0.00-0.02); Immature Granulocytes % (auto) 0.3 %; Lymphocytes # (auto) 1.29 K/uL (1.2-3.4); Lymphocytes % (auto) 11.1 %; Mean Corpuscular Hgb Conc 32.8 g/dL (32-36); Mean Corpuscular Volume 92.5 fL (80-100); Mean Platelet Volume 9.6 fL (7.4-10.4); Monocytes # (auto) 1.33 K/uL (0.11-0.59); Monocytes % (auto) 11.4 %; Neutrophils # (auto) 8.75 K/uL (1.4-6.5); Neutrophils % (auto) 75.3 %; Platelet Count 198 K/uL (130-400); RDW Coefficient of Variation 14.6 % (11.5-14.5); RDW Standard Deviation 49.9 fL (36.4-46.3); Red Blood Count 3.99 M/uL (4.2-5.4); White Blood Count 11.64 K/uL (4.8-10.8)
[2018-08-17 08:38] LABS: BUN Creatinine Ratio 23.1 (10-20); Calcium 9.5 mg/dl (8.5-10.1); Creatinine Clr Calc Pharmacy 30.6 ml/min; Est GFR (African American) 42.1; Est GFR (Non-African American) 36.3; Potassium 4.4 mmol/L (3.5-5.1)
[2018-08-17] MEDS ORDERED: LEVOTHYROXINE 137 MCG PO SCH (09:00)
[2018-08-17] MEDS ORDERED: cefTRIAXone SODIUM 1,000 MG in DEXTROSE 5% 50 ML IV SCH (09:00)
[2018-08-17] MEDS: ASPIRIN 81 MG ECTAB PO SCH (09:12)
[2018-08-17] MEDS: LORazepam 0.5 MG TAB PO PRN ×2 (09:13→20:51)
[2018-08-17 11:19] LABS: C Reactive Protein 6.39 mg/dl (0-0.29)
--- NOTE | 2018-08-17 13:55 | Family Medicine Progress Note ---
Date of Service August 17, 2018 Assessment & Plan (1) Pneumonia: Patient is a pleasant 83yo F PMH asthma, CAD, HTN, HLD, hypothyroid, anxiety, CKD III (baseline 1.5-1.7), aortic stenosis, who presents with a 2 week history of fatigue, shortness of breath, HAYNES, and 5-6 days of subjective fevers. PNA/Hypoxia/Asthma/Weakness/Fever -unsure etiology of dyspnea: fluid overload (pulmonary edema) vs infectious (PNA) -will cont rocephin/azithro given fevers and pt appears euvolemic. Will cont to monitor -procal normal -Duonebs and pulmicort respules -D/C IVF NSS @40 -Not diuresing at this time, hold hctz/spironolactone -CRP/BNP in AM -PT/OT Obesity/?FREDY -possible hypoventilation syndrome -CXR: pulmonary artery hypertension -Consider outpt sleep study on d/c CKD III, H/O RCC s/p L nephrectomy and partial R nephrectomy -Gentle IVF, close to baseline of 1.5 HTN/Paroxysmal SVT -Cont home meds -Consider restarting thiazide moving forward HLD -Cont atorvastatin 20 CAD with Aortic stenosis -Recent echo June 2018 showed EF 60-65, Aortic valve area of 1.5cm^2 -Cont ASA Hypothyroid s/p thyroidectomy -Cont home levothyroxine Anxiety -Cont lorazepam prn and sertraline FEN/GI: IVF dc'd. HH Diet. DVT Prophylaxis: Heparin SQ Full Code Dispo: Med Surg. Lives at home with who has dementia. Pt is primary caregiver, daughter lives 2 homes down and is helping to care while pt in hospital. Supervising Physician Co-Signing Physician Notes I personally examined the patient and verified all deleon points of history and exam, discussed case, and agree with decision making with Dr Burnett. Fevers over the last few days, shortness of breath progressive over the last month or so. She felt like she had the flu. Coughing but not much sputum. May be a tiny bit of paroxysmal nocturnal dyspnea, but no orthopnea. No weight gain, no significant edema. She feels ill. She does however feel better than last night, and feels like she is improving. Vitals noted, in general she is awake and alert pleasant no distress. Breathing is unlabored, lungs are diminished base left more than elsewhere but overall clear to auscultation no rales rhonchi or wheezes good effort. No accessory muscle use. Skin shows no rashes no pallor or icterus. Dyspnea/hypoxia/feverthe differential appears to be infectious versus pulmonary edema, given the fever, and given the lack of overt CHF signs or symptoms, I would favor that she is suffering from an infectious illness. Continue antibiotics supportive care and serial exams. Morbid obesity with possible alveolar hypoventilation syndromepossibly contributed to her hypoxia, sleep study as an outpatient, especially given that she does note feeling tired frequently. DVT prophylaxisheparin subcu Otherwise as above Subjective 83 y/o F found in bed this AM in NAD. Reports no acute overnight events. Breathing ok, but trials without O2 have not gone well per pt. Ongoing dry cough. Tolerating PO intake. No issues voiding. No other acute concerns or complaints. Review of Systems Review of Systems: All systems reviewed & are unremarkable except as noted in HPI & below Physical Exam Constitutional: WD/WN, vitals as above Eyes: PERRL, conjunctivae normal, anicteric sclerae ENMT: external ear and nose normal, oropharynx normal Respiratory: normal respiratory effort, lungs clear to auscultation Cardiovascular: RRR, no murmur, no edema Gastrointestinal (Abdomen): normal bowel sounds, soft, nontender, no hepa tosplenomegaly Skin: no rashes, warm and dry Psychiatric: A+Ox3, euthymic affect Results & Data Vital Signs (Past 12 Hours) Vital Signs Temp Pulse Resp BP Pulse Ox 08/17/18 12:48 36.5 C 89 18 125/78 95 08/17/18 11:09 75 16 91 08/17/18 07:23 80 18 92 08/17/18 07:00 36.9 C 77 20 182/76 H 91 08/17/18 03:43 77 18 90 Laboratory Results Laboratory Results - last 24 hr 08/16/18 08/16/18 08/16/18 19:05 19:05 19:05 WBC 10.84 H RBC 4.14 L Hgb 13.0 Hct 37.5 MCV 90.6 MCH 31.4 MCHC 34.7 RDW Std Deviation 48.1 H RDW Coeff of Yanelis 14.6 H Plt Count 211 MPV 9.2 Immature Gran % (Auto) 0.3 Neut % (Auto) 72.0 Lymph % (Auto) 15.9 [place] % (Auto) 10.1 Eos % (Auto) 1.2 Baso % (Auto) 0.5 Immature Gran # (Auto) 0.03 H Neut # (Auto) 7.81 H Lymph # (Auto) 1.72 [place] # (Auto) 1.10 H Eos # (Auto) 0.13 Baso # (Auto) 0.05 PT 12.3 H INR 1.2 H Sodium Potassium Chloride Carbon Dioxide Anion Gap BUN Creatinine Est Cr Clr Drug Dosing Est GFR ( Amer) Est GFR (Non-Af Amer) BUN/Creatinine Ratio Glucose Lactate 1.3 Calcium Magnesium Total Bilirubin AST ALT Alkaline Phosphatase Troponin I C-Reactive Protein NT-Pro-B Natriuret Pep Total Protein Albumin Globulin Albumin/Globulin Ratio Procalcitonin TSH 08/16/18 08/17/18 08/17/18 19:05 07:45 07:45 WBC 11.64 H RBC 3.99 L Hgb 12.1 Hct 36.9 L MCV 92.5 MCH 30.3 MCHC 32.8 RDW Std Deviation 49.9 H RDW Coeff of Yanelis 14.6 H Plt Count 198 MPV 9.6 Immature Gran % (Auto) 0.3 Neut % (Auto) 75.3 Lymph % (Auto) 11.1 [place] % (Auto) 11.4 Eos % (Auto) 1.6 Baso % (Auto) 0.3 Immature Gran # (Auto) 0.04 H Neut # (Auto) 8.75 H Lymph # (Auto) 1.29 [place] # (Auto) 1.33 H Eos # (Auto) 0.19 Baso # (Auto) 0.04 PT INR Sodium 141 142 Potassium 4.5 4.4 Chloride 107 108 H Carbon Dioxide 25 26 Anion Gap 9.0 8.0 BUN 40 H 31 H Creatinine 1.64 H 1.34 H D Est Cr Clr Drug Dosing 24.5 30.6 Est GFR ( Amer) 32.9 42.1 Est GFR (Non-Af Amer) 28.4 36.3 BUN/Creatinine Ratio 24.6 H 23.1 H Glucose 108 H 110 H Lactate Calcium 10.0 9.5 Magnesium 2.2 Total Bilirubin 0.8 AST 15 ALT 21 Alkaline Phosphatase 75 Troponin I 0.019 C-Reactive Protein NT-Pro-B Natriuret Pep Total Protein 7.6 Albumin 3.8 Globulin 3.8 Albumin/Globulin Ratio 1.0 Procalcitonin TSH 2.330 08/17/18 08/17/18 07:45 07:45 WBC RBC Hgb Hct MCV MCH MCHC RDW Std Deviation RDW Coeff of Yanelis Plt Count MPV Immature Gran % (Auto) Neut % (Auto) Lymph % (Auto) [place] % (Auto) Eos % (Auto) Baso % (Auto) Immature Gran # (Auto) Neut # (Auto) Lymph # (Auto) [place] # (Auto) Eos # (Auto) Baso # (Auto) PT INR Sodium Potassium Chloride Carbon Dioxide Anion Gap BUN Creatinine Est Cr Clr Drug Dosing Est GFR ( Amer) Est GFR (Non-Af Amer) BUN/Creatinine Ratio Glucose Lactate Calcium Magnesium Total Bilirubin AST ALT Alkaline Phosphatase Troponin I C-Reactive Protein 6.39 H NT-Pro-B Natriuret Pep 3293 H Total Protein Albumin Globulin Albumin/Globulin Ratio Procalcitonin < 0.05 TSH Medications Administered Current Inpatient Medications Acetaminophen (Tylenol) 650 mg PO Q4H PRN PRN Reason: pain/fever Stop: 09/15/18 23:13 Acetaminophen/Codeine Phosphate (Tylenol W/Codeine #3) 1 - 2 tab PO Q6H PRN PRN Reason: pain Stop: 09/15/18 20:56 Al Hydrox/Mg Hydrox/Simethicone (Maalox) 30 ml PO Q6H PRN PRN Reason: Dyspepsia Stop: 09/15/18 23:13 Albuterol (Duoneb) 3 ml NEB Q4R JACQUES Stop: 09/16/18 00:00 Last Admin: 08/17/18 15:24 Dose: 3 ml Documented by: Aspirin (Ecotrin Ectab) 81 mg PO QAM JACQUES Stop: 09/16/18 08:59 Last Admin: 08/17/18 09:12 Dose: 81 mg Documented by: Atorvastatin Calcium (Lipitor) 20 mg PO HS JACQUES Stop: 09/15/18 20:59 Last Admin: 08/16/18 23:50 Dose: 20 mg Documented by: Budesonide (Pulmicort Respules) 0.25 mg NEB BIDR PRN PRN Reason: Dyspnea Stop: 09/15/18 23:13 Last Admin: 08/17/18 07:22 Dose: 0.25 mg Documented by: Diltiazem HCl (Cardizem Cd) 300 mg PO QAM [facility] Stop: 09/16/18 08:59 Last Admin: 08/17/18 07:39 Dose: 300 mg Documented by: Docusate Sodium (Colace) 100 mg PO BID [facility] Stop: 09/15/18 20:59 Last Admin: 08/17/18 07:41 Dose: 100 mg Documented by: Doxazosin Mesylate (Cardura) 4 mg PO BID [facility] Stop: 09/15/18 20:59 Last Admin: 08/17/18 07:40 Dose: 4 mg Documented by: Heparin Sodium (Porcine) (Heparin Sodium (Porcine)) 5,000 units SQ Q12 [facility] Stop: 09/16/18 08:59 Last Admin: 08/17/18 07:39 Dose: Not Given Documented by: Azithromycin 250 mg/ Dextrose 252.5 mls @ 125 mls/hr IV DAILY@2100 [facility] Stop: 08/22/18 23:02 Ceftriaxone Sodium 2,000 mg/ (Dextrose) 70 mls @ 140 mls/hr IV Q24H [facility]; Protocol Stop: 08/22/18 20:29 Irbesartan (Avapro) 300 mg PO QAM [facility] Stop: 09/16/18 08:59 Last Admin: 08/17/18 07:39 Dose: 300 mg Documented by: Levothyroxine Sodium (Levothyroxine Sodium) 137 mcg PO DAILYBB [facility] Stop: 09/16/18 06:29 Last Admin: 08/17/18 06:26 Dose: 137 mcg Documented by: Lorazepam (Ativan) 0.5 mg PO BID PRN PRN Reason: Anxiety Stop: 09/15/18 20:56 Last Admin: 08/17/18 09:13 Dose: 0.5 mg Documented by: Magnesium Hydroxide (Milk Of Magnesia) 30 ml PO Q6H PRN PRN Reason: Constipation Stop: 09/15/18 23:13 Metoprolol Succinate (Toprol Xl) 100 mg PO BID [facility] Stop: 09/15/18 20:59 Last Admin: 08/17/18 07:37 Dose: 100 mg Documented by: Polyethylene Glycol (Miralax Powder Packet) 17 gm PO DAILY PRN PRN Reason: Constipation Stop: 09/15/18 23:13 Potassium Chloride (Klor-Con M10) 10 meq PO BID JACQUES Stop: 09/15/18 20:59 Last Admin: 08/17/18 07:40 Dose: 10 meq Documented by: Fluticasone/Salmeterol (Advair Diskus 250/50) 1 puffs INH BID JACQUES Stop: 09/15/18 20:59 Last Admin: 08/17/18 07:42 Dose: 1 puffs Documented by: Sertraline HCl (Zoloft) 50 mg PO HS JACQUES Stop: 09/15/18 20:59 Last Admin: 08/16/18 23:48 Dose: 50 mg Documented by: PG Care Time/CCT Total # of Minutes Spent Total Time Spent with Patient: Total time spent is greater than 50% in coordination of care (as documented) at patient's floor/unit and/or counseling patient: Resident Activity Tracking Resident Involvement: Resident Care Provided Care Provided: Adult Hospital Medicine (1) Pneumonia Pneumonia type: due to unspecified organism
--- NOTE | 2018-08-17 14:49 | Family Medicine Progress Note ---
Date of Service August 17, 2018 Results & Data Vital Signs (Past 12 Hours) Vital Signs Temp Pulse Resp BP BP Pulse Ox 08/17/18 12:48 36.5 C 89 18 125/78 95 08/17/18 11:09 75 16 91 08/17/18 07:45 36.5 C 92 H 20 186/95 H 93 08/17/18 07:23 80 18 92 08/17/18 07:00 36.9 C 77 20 182/76 H 91 08/17/18 03:43 77 18 90 PG Care Time/CCT Total # of Minutes Spent Total Time Spent with Patient: Total time spent is greater than 50% in coordination of care (as documented) at patient's floor/unit and/or counseling patient:
[2018-08-17] MEDS ORDERED: ALBUT/IPRATROP 3MG/0.5MG NEB 3 ML VIAL NEB PRN (17:44)
[2018-08-17] MEDS: SPIRONOLACTONE/HCTZ 25-25 PO SCH (19:54)
[2018-08-17] MEDS: cefTRIAXone SODIUM 2,000 MG in DEXTROSE 5% 50 ML IV SCH (20:00)
[2018-08-17] MEDS: AZITHROMYCIN 250 MG in DEXTROSE 5% 250 ML IV SCH (20:49)
[2018-08-17] MEDS: SERTRALINE HCL 50 MG TABLET PO SCH (20:51)
[2018-08-17] MEDS: ATORVASTATIN 20 MG TAB PO SCH (20:51)
[2018-08-18] MEDS: ALBUT/IPRATROP 3MG/0.5MG NEB 3 ML VIAL NEB SCH ×6 (05:06→23:27)
[2018-08-18] MEDS: LEVOTHYROXINE SODIUM 137 MCG TABLET PO SCH (06:22)
[2018-08-18 07:21] LABS: Basophils # (auto) 0.03 K/uL (0-0.2); Basophils % (auto) 0.2 %; Eosinophils # (auto) 0.13 K/uL (0-0.5); Eosinophils % (auto) 1.1 %; Hematocrit (blood only) 33.4 % (37-47); Hemoglobin 11.1 g/dL (12.0-16.0); Immature Granulocytes # (auto) 0.04 K/uL (0.00-0.02); Immature Granulocytes % (auto) 0.3 %; Lymphocytes # (auto) 1.24 K/uL (1.2-3.4); Lymphocytes % (auto) 10.1 %; Mean Corpuscular Hgb Conc 33.2 g/dL (32-36); Mean Corpuscular Volume 91.8 fL (80-100); Mean Platelet Volume 9.4 fL (7.4-10.4); Monocytes # (auto) 1.22 K/uL (0.11-0.59); Monocytes % (auto) 9.9 %; Neutrophils # (auto) 9.64 K/uL (1.4-6.5); Neutrophils % (auto) 78.4 %; Platelet Count 195 K/uL (130-400); RDW Coefficient of Variation 14.5 % (11.5-14.5); RDW Standard Deviation 49.6 fL (36.4-46.3); Red Blood Count 3.64 M/uL (4.2-5.4)
[2018-08-18 07:40] LABS: BUN Creatinine Ratio 23.6 (10-20); Calcium 8.8 mg/dl (8.5-10.1); Creatinine Clr Calc Pharmacy 32.8 ml/min; Est GFR (African American) 45.7; Est GFR (Non-African American) 39.5; Potassium 4.2 mmol/L (3.5-5.1)
[2018-08-18] MEDS ORDERED: [UNRECOGNIZED DRUG - OTHER] SCH (09:00)
[2018-08-18] MEDS: FLUTICASONE/SALMETEROL 250/50 (ADVAIR) 14 PUFF/1 INHALER INH SCH (09:03)
[2018-08-18] MEDS: DOXAZosin MESYLATE 4 MG TAB PO SCH ×2 (09:03→20:50)
[2018-08-18] MEDS: IRBESARTAN 150 MG TAB PO SCH (09:03)
[2018-08-18] MEDS: POTASSIUM CHLORIDE 10 MEQ TABCR PO SCH ×2 (09:04→20:48)
[2018-08-18] MEDS: DOCUSATE SODIUM 100 MG CAP PO SCH ×2 (09:04→20:48)
[2018-08-18] MEDS: dilTIAZem HCL 300 MG CAPCR PO SCH (09:04)
[2018-08-18] MEDS: ASPIRIN 81 MG ECTAB PO SCH (09:04)
[2018-08-18] MEDS: HEPARIN SOD 5,000 UNIT/0.5 ML VIAL SQ SCH ×2 (09:04→20:50)
[2018-08-18] MEDS: METOPROLOL SUCC 50MG EXT REL TAB PO SCH ×2 (09:05→20:48)
[2018-08-18] MEDS: PRESERVISION AREDS PO SCH ×2 (09:06→20:47)
[2018-08-18] MEDS ORDERED: FUROSEMIDE 40 MG/4 ML VIAL IV STA (09:45)
[2018-08-18] MEDS ORDERED: FUROSEMIDE 40 MG in SYRINGE 0 ML IV ONE (10:00)
--- NOTE | 2018-08-18 12:29 | Family Medicine Progress Note ---
Date of Service August 18, 2018 Assessment & Plan (1) Pneumonia: Patient is a pleasant 83yo F PMH asthma, CAD, HTN, HLD, hypothyroid, anxiety, CKD III (baseline 1.5-1.7), aortic stenosis, who presents with a 2 week history of fatigue, shortness of breath, HAYNES, and 5-6 days of subjective fevers. PNA/Hypoxia/Asthma/Weakness/Fever -likely mixed etiology of dyspnea: fluid overload (pulmonary edema) vs infectious (PNA) -will cont rocephin/azithro -today lasix 40 mg one time. Will monitor response in terms of O2 needs. Will repeat as needed -Duonebs and pulmicort respules -Cont hctz/spironolactone daily -Cont trend CRP (6.39), BNP (3239) -ECHO pending -PT/OT - ok to d/c home Obesity/?FREDY -possible hypoventilation syndrome -CXR: pulmonary artery hypertension -Consider outpt sleep study on d/c CKD III, H/O RCC s/p L nephrectomy and partial R nephrectomy -D/C IVF, close to baseline of 1.5 HTN/Paroxysmal SVT -Cont home meds diltiazem 300, metoprolol 100 BID -Restarted HCTZ/spironolactone 25/25mg HLD -Cont atorvastatin 20 CAD with Aortic stenosis -Recent echo June 2018 showed EF 60-65, Aortic valve area of 1.5cm^2 -Cont ASA Hypothyroid s/p thyroidectomy -Cont home levothyroxine Anxiety -Cont lorazepam prn and sertraline FEN/GI: IVF dc'd. HH Diet. DVT Prophylaxis: Heparin SQ Full Code Dispo: Med Surg. Lives at home with who has dementia. Pt is primary caregiver, daughter lives 2 homes down and is helping to care while pt in hospital. (2) Hypoxia: (3) Pulmonary edema: (4) Hypertension: Supervising Physician Co-Signing Physician Notes I personally examined the patient and verified all deleon points of history and exam, discussed case, and agree with decision making with Dr Burnett. Hypoxia worsened late in the day yesterday and earlier today. No other new complaints. Vitals noted, in general she is awake and alert pleasant no distress. Breathing is unlabored, no accessory muscle use, good effort. No accessory muscle use. Skin shows no rashes no pallor or icterus. Dyspnea/hypoxia/feverthe differential appears to be infectious versus pulmonary edema, and I suspect she has elements of both. Continue antibiotics, give Lasix IV, follow for response. More than likely she has an infectious illness causing increased physiologic stress leading to a decompensation of heart failure with preserved EF, creating a mixed picture. Check echo given that her last one was about a year ago. Morbid obesity with possible alveolar hypoventilation syndromepossibly contributed to her hypoxia, sleep study as an outpatient, especially given that she does note feeling tired frequently. DVT prophylaxisheparin subcu Otherwise as above Subjective 83 y/o F found in bed this AM in NAD. Last evening, reports of acute SOB lasting 5-10 min. Pt given neb tx and thiazide diuretic. States that breathing about the same as yesterday. O2 needs increased to 5L from 2L yesterday. Ongoing dry cough. Tolerating PO intake. No issues voiding other than complaints of frequent bathroom visits 2/2 diuretic. No other acute concerns or complaints. Review of Systems Review of Systems: All systems reviewed & are unremarkable except as noted in HPI & below Physical Exam Constitutional: WD/WN, vitals as above Eyes: PERRL, conjunctivae normal, anicteric sclerae ENMT: external ear and nose normal, oropharynx normal Respiratory: normal respiratory effort; no respiratory distress, no labored breathing and does not use accessory muscles crackles at b/l bases, improved from yesterday Cardiovascular: RRR, no murmur, no edema Gastrointestinal (Abdomen): normal bowel sounds, soft, nontender, no hepatosplenomegaly Skin: no rashes, warm and dry Psychiatric: A+Ox3, euthymic affect Results & Data Vital Signs (Past 12 Hours) Vital Signs Temp Pulse Resp BP Pulse Ox 08/18/18 11:26 80 18 91 08/18/18 08:00 37.0 C 84 20 180/99 H 91 08/18/18 07:19 78 18 92 Laboratory Results Laboratory Results - last 24 hr 08/18/18 08/18/18 06:50 06:50 WBC 12.30 H RBC 3.64 L Hgb 11.1 L Hct 33.4 L MCV 91.8 MCH 30.5 MCHC 33.2 RDW Std Deviation 49.6 H RDW Coeff of Yanelis 14.5 Plt Count 195 MPV 9.4 Immature Gran % (Auto) 0.3 Neut % (Auto) 78.4 Lymph % (Auto) 10.1 [place] % (Auto) 9.9 Eos % (Auto) 1.1 Baso % (Auto) 0.2 Immature Gran # (Auto) 0.04 H Neut # (Auto) 9.64 H Lymph # (Auto) 1.24 [place] # (Auto) 1.22 H Eos # (Auto) 0.13 Baso # (Auto) 0.03 Sodium 138 Potassium 4.2 Chloride 106 Carbon Dioxide 26 Anion Gap 6.0 BUN 30 H Creatinine 1.25 H Est Cr Clr Drug Dosing 32.8 Est GFR ( Amer) 45.7 Est GFR (Non-Af Amer) 39.5 BUN/Creatinine Ratio 23.6 H Glucose 107 H Calcium 8.8 Medications Administered Current Inpatient Medications Acetaminophen (Tylenol) 650 mg PO Q4H PRN PRN Reason: pain/fever Stop: 09/15/18 23:13 Last Admin: 08/17/18 19:54 Dose: 650 mg Documented by: Acetaminophen/Codeine Phosphate (Tylenol W/Codeine #3) 1 - 2 tab PO Q6H PRN PRN Reason: pain Stop: 09/15/18 20:56 Al Hydrox/Mg Hydrox/Simethicone (Maalox) 30 ml PO Q6H PRN PRN Reason: Dyspepsia Stop: 09/15/18 23:13 Albuterol (Duoneb) 3 ml NEB Q4R [facility] Stop: 09/16/18 00:00 Last Admin: 08/18/18 11:24 Dose: 3 ml Documented by: Albuterol (Duoneb) 3 ml NEB Q2H PRN PRN Reason: Shortness Of Breath Or Wheezing Stop: 09/16/18 17:44 Last Admin: 08/17/18 17:57 Dose: 3 ml Documented by: Aspirin (Ecotrin Ectab) 81 mg PO QAM [facility] Stop: 09/16/18 08:59 Last Admin: 08/18/18 09:04 Dose: 81 mg Documented by: Atorvastatin Calcium (Lipitor) 20 mg PO HS [facility] Stop: 09/15/18 20:59 Last Admin: 08/17/18 20:51 Dose: 20 mg Documented by: Budesonide (Pulmicort Respules) 0.25 mg NEB BIDR PRN PRN Reason: Dyspnea Stop: 09/15/18 23:13 Last Admin: 08/17/18 07:22 Dose: 0.25 mg Documented by: Diltiazem HCl (Cardizem Cd) 300 mg PO QAM [facility] Stop: 09/16/18 08:59 Last Admin: 08/18/18 09:04 Dose: 300 mg Documented by: Docusate Sodium (Colace) 100 mg PO BID [facility] Stop: 09/15/18 20:59 Last Admin: 08/18/18 09:04 Dose: 100 mg Documented by: Doxazosin Mesylate (Cardura) 4 mg PO BID [facility] Stop: 09/15/18 20:59 Last Admin: 08/18/18 09:03 Dose: 4 mg Documented by: HCTZ/Spironolactone (Aldactazide ) 1 tab PO QPM [facility] Stop: 09/16/18 17:59 Last Admin: 08/17/18 19:54 Dose: 1 tab Documented by: Heparin Sodium (Porcine) (Heparin Sodium (Porcine)) 5,000 units SQ Q12 [facility] Stop: 09/16/18 08:59 Last Admin: 08/18/18 09:04 Dose: 5,000 units Documented by: Azithromycin 250 mg/ Dextrose 252.5 mls @ 125 mls/hr IV DAILY@2100 [facility] Stop: 08/22/18 23:02 Last Infusion: 08/17/18 23:39 Dose: Infused Documented by: Ceftriaxone Sodium 2,000 mg/ (Dextrose) 70 mls @ 140 mls/hr IV Q24H [facility]; Protocol Stop: 08/22/18 20:29 Last Infusion: 08/17/18 21:09 Dose: Infused Documented by: Irbesartan (Avapro) 300 mg PO QAM [facility] Stop: 09/16/18 08:59 Last Admin: 08/18/18 09:03 Dose: 300 mg Documented by: Levothyroxine Sodium (Levothyroxine Sodium) 137 mcg PO DAILYBB [facility] Stop: 09/16/18 06:29 Last Admin: 08/18/18 06:22 Dose: 137 mcg Documented by: Lorazepam (Ativan) 0.5 mg PO BID PRN PRN Reason: Anxiety Stop: 09/15/18 20:56 Last Admin: 08/17/18 20:51 Dose: 0.5 mg Documented by: Magnesium Hydroxide (Milk Of Magnesia) 30 ml PO Q6H PRN PRN Reason: Constipation Stop: 09/15/18 23:13 Metoprolol Succinate (Toprol Xl) 100 mg PO BID [facility] Stop: 09/15/18 20:59 Last Admin: 08/18/18 09:05 Dose: 100 mg Documented by: Preservision Areds- Non-Formulary Patient's Own Med 1 ea PO BID [facility] Stop: 09/17/18 08:59 Last Admin: 08/18/18 09:06 Dose: 1 tab Documented by: Polyethylene Glycol (Miralax Powder Packet) 17 gm PO DAILY PRN PRN Reason: Constipation Stop: 09/15/18 23:13 Potassium Chloride (Klor-Con M10) 10 meq PO BID [facility] Stop: 09/15/18 20:59 Last Admin: 08/18/18 09:04 Dose: 10 meq Documented by: Fluticasone/Salmeterol (Advair Diskus 250/50) 1 puffs INH BID [facility] Stop: 09/15/18 20:59 Last Admin: 08/18/18 09:03 Dose: 1 puffs Documented by: Sertraline HCl (Zoloft) 50 mg PO HS [facility] Stop: 09/15/18 20:59 Last Admin: 08/17/18 20:51 Dose: 50 mg Documented by: PG Care Time/CCT Total # of Minutes Spent Total Time Spent with Patient: Total time spent is greater than 50% in coordination of care (as documented) at patient's floor/unit and/or counseling patient: Resident Activity Tracking Resident Involvement: Resident Care Provided Care Provided: Adult Hospital Medicine (1) Pneumonia Pneumonia type: due to unspecified organism
[2018-08-18] MEDS: cefTRIAXone SODIUM 2,000 MG in DEXTROSE 5% 50 ML IV SCH (19:54)
[2018-08-18] MEDS: AZITHROMYCIN 250 MG in DEXTROSE 5% 250 ML IV SCH (20:41)
[2018-08-18] MEDS: ATORVASTATIN 20 MG TAB PO SCH (20:47)
[2018-08-18] MEDS: SPIRONOLACTONE/HCTZ 25-25 PO SCH (20:50)
[2018-08-18] MEDS: SERTRALINE HCL 50 MG TABLET PO SCH (20:50)
[2018-08-18] MEDS: LORazepam 0.5 MG TAB PO PRN (20:58)
[2018-08-19] MEDS: ALBUT/IPRATROP 3MG/0.5MG NEB 3 ML VIAL NEB SCH ×6 (05:16→23:07)
[2018-08-19] MEDS: LEVOTHYROXINE SODIUM 137 MCG TABLET PO SCH (05:59)
[2018-08-19 06:48] LABS: Basophils # (auto) 0.05 K/uL (0-0.2); Basophils % (auto) 0.5 %; Eosinophils # (auto) 0.32 K/uL (0-0.5); Eosinophils % (auto) 2.9 %; Hematocrit (blood only) 34.4 % (37-47); Hemoglobin 11.4 g/dL (12.0-16.0); Immature Granulocytes # (auto) 0.04 K/uL (0.00-0.02); Immature Granulocytes % (auto) 0.4 %; Lymphocytes # (auto) 1.13 K/uL (1.2-3.4); Lymphocytes % (auto) 10.4 %; Mean Corpuscular Hgb Conc 33.1 g/dL (32-36); Mean Corpuscular Volume 91.2 fL (80-100); Mean Platelet Volume 9.6 fL (7.4-10.4); Monocytes # (auto) 1.21 K/uL (0.11-0.59); Monocytes % (auto) 11.1 %; Neutrophils # (auto) 8.11 K/uL (1.4-6.5); Neutrophils % (auto) 74.7 %; Platelet Count 204 K/uL (130-400); RDW Coefficient of Variation 14.4 % (11.5-14.5); Red Blood Count 3.77 M/uL (4.2-5.4); White Blood Count 10.86 K/uL (4.8-10.8)
[2018-08-19 07:26] LABS: BUN Creatinine Ratio 22.9 (10-20); Calcium 9.1 mg/dl (8.5-10.1); Creatinine Clr Calc Pharmacy 31.3 ml/min; Est GFR (African American) 43.2; Est GFR (Non-African American) 37.3; Potassium 3.9 mmol/L (3.5-5.1)
[2018-08-19] MEDS ORDERED: FUROSEMIDE 40 MG in SYRINGE 0 ML IV ONE (08:30)
[2018-08-19] MEDS: METOPROLOL SUCC 50MG EXT REL TAB PO SCH ×2 (09:05→21:26)
[2018-08-19] MEDS: dilTIAZem HCL 300 MG CAPCR PO SCH (09:06)
[2018-08-19] MEDS: DOXAZosin MESYLATE 4 MG TAB PO SCH ×2 (09:06→21:27)
[2018-08-19] MEDS: POTASSIUM CHLORIDE 10 MEQ TABCR PO SCH ×2 (09:06→21:28)
[2018-08-19] MEDS: PRESERVISION AREDS PO SCH ×2 (09:06→21:27)
[2018-08-19] MEDS: DOCUSATE SODIUM 100 MG CAP PO SCH ×3 (09:06→21:33)
[2018-08-19] MEDS: ASPIRIN 81 MG ECTAB PO SCH (09:06)
[2018-08-19] MEDS: HEPARIN SOD 5,000 UNIT/0.5 ML VIAL SQ SCH ×2 (09:07→21:28)
[2018-08-19] MEDS: IRBESARTAN 150 MG TAB PO SCH (09:07)
--- NOTE | 2018-08-19 11:39 | Family Medicine Progress Note ---
Date of Service August 19, 2018 Assessment & Plan (1) Pneumonia: Patient is a pleasant 83yo F PMH asthma, CAD, HTN, HLD, hypothyroid, anxiety, CKD III (baseline 1.5-1.7), aortic stenosis, who presents with a 2 week history of fatigue, shortness of breath, HAYNES, and 5-6 days of subjective fevers. PNA/Hypoxia/Asthma/Weakness/Fever -likely mixed etiology of dyspnea: fluid overload (pulmonary edema) vs infectious (PNA). Infectious illness causing increased physiologic stress leading to decompensation of HF w/preserved EF -will cont rocephin/azithro. Switch to PO azithro on d/c -Still requiring supplemental O2. Normally does not use O2 at home. Trying to wean off as below -today lasix 40 mg again one time. Will monitor response in terms of O2 needs. Will repeat 40 again in evening . Reassess in AM to see if additional dose needed -Duonebs and pulmicort respules -Cont hctz/spironolactone daily -ECHO: moderate concentric LVH, LV systolic fxn normal, grade II diastolic dysfunction -PT/OT - ok to d/c home Obesity/?FREDY -possible hypoventilation syndrome -CXR: pulmonary artery hypertension -Consider outpt sleep study on d/c CKD III, H/O RCC s/p L nephrectomy and partial R nephrectomy -close to baseline of 1.5 HTN/Paroxysmal SVT -Cont home meds diltiazem 300, metoprolol 100 BID -Restarted HCTZ/spironolactone 25/25mg HLD -Cont atorvastatin 20 CAD with Aortic stenosis -Recent echo June 2018 showed EF 60-65, Aortic valve area of 1.5cm^2 -Cont ASA Hypothyroid s/p thyroidectomy -Cont home levothyroxine Anxiety -Cont lorazepam prn and sertraline FEN/GI: HH Diet. DVT Prophylaxis: Heparin SQ Full Code Dispo: Med Surg. Lives at home with who has dementia. Pt is primary caregiver, daughter lives 2 homes down and is helping to care while pt in hospital. Likely d/c tomorrow. Supervising Physician Co-Signing Physician Notes I personally examined the patient and verified all deleon points of history and exam, discussed case, and agree with decision making with Dr Burnett. Breathing feeling better, still needing oxygen. Respiratory therapy noted that coming back from the bathroom, wearing oxygen, she desaturated to about 79%, and only looked mildly dyspneic for it. Vitals noted, in general she is awake and alert pleasant no distress. Breathing is unlabored, no accessory muscle use, good effort, faint basilar rales only notable with amplification mostly just sounding vaguely coarse. No accessory muscle use. Skin shows no rashes no pallor or icterus. Dyspnea/hypoxia/fevercombination of an infectious picture (continue Zithromax) causing exacerbation of diastolic CHF (heart failure with preserved EF, given her aortic stenosis and diastolic dysfunction)continue diuresis Hypoxiainitially seems all to be acute, but this is becoming more refractory, and she was surprisingly asymptomatic for such a low pulse ox. This begs the question with her aortic stenosis and thoracic kyphosis if she possibly breathes worse on a normal day than she realizes. We discussed this, if we diurese her to where her creatinine rises, therefore showing that she is dry, she may need home oxygen. If she does need home oxygen, then we would definitely want cardiology following as closely as possible for the potential for a TAVR, although I suspect her valve is not tight enough to warrant it yet. Morbid obesity with possible alveolar hypoventilation syndromepossibly contributed to her hypoxia, sleep study as an outpatient, especially given that she does note feeling tired frequently. DVT prophylaxisheparin subcu Dispogoal is to get her back home, when she is dry, hopefully off of oxygen, but may need home oxygen. See above. Otherwise as above Subjective 83 y/o F found in bed this AM in NAD. Reports no acute overnight events. No episodes of SOB. States breathing feels better. On 3L, down from 5L NC. Tolerating PO intake. No issues voiding other than complaints of frequent bathroom visits 2/2 diuretic. No other acute concerns or complaints. Review of Systems Review of Systems: All systems reviewed & are unremarkable except as noted in HPI & below Physical Exam Constitutional: WD/WN, vitals as above Eyes: PERRL, conjunctivae normal, anicteric sclerae ENMT: external ear and nose normal, oropharynx normal Respiratory: normal respiratory effort; no respiratory distress, no labored breathing and does not use accessory muscles crackles improved, minimal Cardiovascular: RRR, no murmur, no edema Gastrointestinal (Abdomen): normal bowel sounds, soft, nontender, no hepatosplenomegaly Skin: no rashes, warm and dry Psychiatric: A+Ox3, euthymic affect Results & Data Vital Signs (Past 12 Hours) Vital Signs Temp Pulse Resp BP Pulse Ox 08/19/18 11:11 71 16 92 08/19/18 08:27 36.5 C 66 20 164/74 H 93 08/19/18 07:13 60 16 92 Laboratory Results Laboratory Results - last 24 hr 08/19/18 08/19/18 06:28 06:28 WBC 10.86 H RBC 3.77 L Hgb 11.4 L Hct 34.4 L MCV 91.2 MCH 30.2 MCHC 33.1 RDW Std Deviation 48.0 H RDW Coeff of Yanelis 14.4 Plt Count 204 MPV 9.6 Immature Gran % (Auto) 0.4 Neut % (Auto) 74.7 Lymph % (Auto) 10.4 [place] % (Auto) 11.1 Eos % (Auto) 2.9 Baso % (Auto) 0.5 Immature Gran # (Auto) 0.04 H Neut # (Auto) 8.11 H Lymph # (Auto) 1.13 L [place] # (Auto) 1.21 H Eos # (Auto) 0.32 Baso # (Auto) 0.05 Sodium 137 Potassium 3.9 Chloride 103 Carbon Dioxide 28 Anion Gap 6.0 BUN 30 H Creatinine 1.31 H Est Cr Clr Drug Dosing 31.3 Est GFR ( Amer) 43.2 Est GFR (Non-Af Amer) 37.3 BUN/Creatinine Ratio 22.9 H Glucose 95 Calcium 9.1 Medications Administered Current Inpatient Medications Acetaminophen (Tylenol) 650 mg PO Q4H PRN PRN Reason: pain/fever Stop: 09/15/18 23:13 Last Admin: 08/17/18 19:54 Dose: 650 mg Documented by: Acetaminophen/Codeine Phosphate (Tylenol W/Codeine #3) 1 - 2 tab PO Q6H PRN PRN Reason: pain Stop: 09/15/18 20:56 Al Hydrox/Mg Hydrox/Simethicone (Maalox) 30 ml PO Q6H PRN PRN Reason: Dyspepsia Stop: 09/15/18 23:13 Albuterol (Duoneb) 3 ml NEB Q4R [facility] Stop: 09/16/18 00:00 Last Admin: 08/19/18 11:11 Dose: 3 ml Documented by: Albuterol (Duoneb) 3 ml NEB Q2H PRN PRN Reason: Shortness Of Breath Or Wheezing Stop: 09/16/18 17:44 Last Admin: 08/17/18 17:57 Dose: 3 ml Documented by: Aspirin (Ecotrin Ectab) 81 mg PO QAM [facility] Stop: 09/16/18 08:59 Last Admin: 08/19/18 09:06 Dose: 81 mg Documented by: Atorvastatin Calcium (Lipitor) 20 mg PO HS [facility] Stop: 09/15/18 20:59 Last Admin: 08/18/18 20:47 Dose: 20 mg Documented by: Budesonide (Pulmicort Respules) 0.25 mg NEB BIDR PRN PRN Reason: Dyspnea Stop: 09/15/18 23:13 Last Admin: 08/17/18 07:22 Dose: 0.25 mg Documented by: Diltiazem HCl (Cardizem Cd) 300 mg PO QAM [facility] Stop: 09/16/18 08:59 Last Admin: 08/19/18 09:06 Dose: 300 mg Documented by: Docusate Sodium (Colace) 100 mg PO BID [facility] Stop: 09/15/18 20:59 Last Admin: 08/19/18 09:11 Dose: 100 mg Documented by: Doxazosin Mesylate (Cardura) 4 mg PO BID [facility] Stop: 09/15/18 20:59 Last Admin: 08/19/18 09:06 Dose: 4 mg Documented by: HCTZ/Spironolactone (Aldactazide 25/25) 1 tab PO QPM [facility] Stop: 09/16/18 17:59 Last Admin: 08/18/18 20:50 Dose: 1 tab Documented by: Heparin Sodium (Porcine) (Heparin Sodium (Porcine)) 5,000 units SQ Q12 [facility] Stop: 09/16/18 08:59 Last Admin: 08/19/18 09:07 Dose: 5,000 units Documented by: Azithromycin 250 mg/ Dextrose 252.5 mls @ 125 mls/hr IV DAILY@2100 [facility] Stop: 08/22/18 23:02 Last Infusion: 08/18/18 23:46 Dose: Infused Documented by: Ceftriaxone Sodium 2,000 mg/ (Dextrose) 70 mls @ 140 mls/hr IV Q24H [facility]; Protocol Stop: 08/22/18 20:29 Last Infusion: 08/18/18 20:41 Dose: Infused Documented by: Irbesartan (Avapro) 300 mg PO QAM [facility] Stop: 09/16/18 08:59 Last Admin: 08/19/18 09:07 Dose: 300 mg Documented by: Levothyroxine Sodium (Levothyroxine Sodium) 137 mcg PO DAILYBB [facility] Stop: 09/16/18 06:29 Last Admin: 08/19/18 05:59 Dose: 137 mcg Documented by: Lorazepam (Ativan) 0.5 mg PO BID PRN PRN Reason: Anxiety Stop: 09/15/18 20:56 Last Admin: 08/18/18 20:58 Dose: 0.5 mg Documented by: Magnesium Hydroxide (Milk Of Magnesia) 30 ml PO Q6H PRN PRN Reason: Constipation Stop: 09/15/18 23:13 Metoprolol Succinate (Toprol Xl) 100 mg PO BID [facility] Stop: 09/15/18 20:59 Last Admin: 08/19/18 09:05 Dose: 100 mg Documented by: Preservision Areds- Non-Formulary Patient's Own Med 1 ea PO BID [facility] Stop: 09/17/18 08:59 Last Admin: 08/19/18 09:06 Dose: 1 tab Documented by: Polyethylene Glycol (Miralax Powder Packet) 17 gm PO DAILY PRN PRN Reason: Constipation Stop: 09/15/18 23:13 Potassium Chloride (Klor-Con M10) 10 meq PO BID [facility] Stop: 09/15/18 20:59 Last Admin: 08/19/18 09:06 Dose: 10 meq Documented by: Sertraline HCl (Zoloft) 50 mg PO HS [facility] Stop: 09/15/18 20:59 Last Admin: 08/18/18 20:50 Dose: 50 mg Documented by: PG Care Time/CCT Total # of Minutes Spent Total Time Spent with Patient: Total time spent is greater than 50% in coordination of care (as documented) at patient's floor/unit and/or counseling patient: Resident Activity Tracking Resident Involvement: Resident Care Provided Care Provided: Adult Hospital Medicine (1) Pneumonia Pneumonia type: due to unspecified organism
[2018-08-19] MEDS ORDERED: FUROSEMIDE 40 MG TAB PO STA (15:47)
[2018-08-19] MEDS: cefTRIAXone SODIUM 2,000 MG in DEXTROSE 5% 50 ML IV SCH (19:56)
[2018-08-19] MEDS: AZITHROMYCIN 250 MG in DEXTROSE 5% 250 ML IV SCH (21:21)
[2018-08-19] MEDS: ATORVASTATIN 20 MG TAB PO SCH (21:26)
[2018-08-19] MEDS: SPIRONOLACTONE/HCTZ 25-25 PO SCH (21:26)
[2018-08-19] MEDS: SERTRALINE HCL 50 MG TABLET PO SCH (21:28)
[2018-08-20] MEDS: ALBUT/IPRATROP 3MG/0.5MG NEB 3 ML VIAL NEB SCH ×4 (03:07→15:08)
[2018-08-20 06:18] LABS: Basophils # (auto) 0.06 K/uL (0-0.2); Basophils % (auto) 0.7 %; Eosinophils # (auto) 0.46 K/uL (0-0.5); Hematocrit (blood only) 35.8 % (37-47); Hemoglobin 12.1 g/dL (12.0-16.0); Immature Granulocytes # (auto) 0.04 K/uL (0.00-0.02); Immature Granulocytes % (auto) 0.4 %; Lymphocytes # (auto) 1.35 K/uL (1.2-3.4); Lymphocytes % (auto) 14.8 %; Mean Corpuscular Hgb Conc 33.8 g/dL (32-36); Mean Corpuscular Volume 91.8 fL (80-100); Mean Platelet Volume 9.5 fL (7.4-10.4); Monocytes # (auto) 1.03 K/uL (0.11-0.59); Monocytes % (auto) 11.3 %; Neutrophils # (auto) 6.19 K/uL (1.4-6.5); Neutrophils % (auto) 67.8 %; Platelet Count 246 K/uL (130-400); RDW Coefficient of Variation 14.4 % (11.5-14.5); RDW Standard Deviation 48.4 fL (36.4-46.3); White Blood Count 9.13 K/uL (4.8-10.8)
[2018-08-20] MEDS: LEVOTHYROXINE SODIUM 137 MCG TABLET PO SCH (06:29)
[2018-08-20 06:40] LABS: BUN Creatinine Ratio 23.7 (10-20); Calcium 9.5 mg/dl (8.5-10.1); Creatinine Clr Calc Pharmacy 27.7 ml/min; Est GFR (African American) 37.3; Est GFR (Non-African American) 32.2; Potassium 3.7 mmol/L (3.5-5.1)
--- NOTE | 2018-08-20 07:46 | Family Medicine Progress Note ---
Date of Service August 20, 2018 Assessment & Plan (1) Pneumonia: See discharge summary from same day. Supervising Physician Co-Signing Physician Notes See d/c summary Results & Data Vital Signs (Past 12 Hours) Vital Signs Temp Pulse Resp BP BP Pulse Ox 08/20/18 07:22 18 94 08/20/18 07:05 36.9 C 64 18 145/83 H 91 08/20/18 03:07 66 18 92 08/19/18 23:07 82 20 90 08/19/18 22:46 37 C 65 20 165/82 H 92 08/19/18 21:33 69 160/87 H (1) Pneumonia Pneumonia type: due to unspecified organism
[2018-08-20] MEDS: DOXAZosin MESYLATE 4 MG TAB PO SCH (08:06)
[2018-08-20] MEDS: ASPIRIN 81 MG ECTAB PO SCH (08:06)
[2018-08-20] MEDS: POTASSIUM CHLORIDE 10 MEQ TABCR PO SCH (08:06)
[2018-08-20] MEDS: IRBESARTAN 150 MG TAB PO SCH (08:06)
[2018-08-20] MEDS: dilTIAZem HCL 300 MG CAPCR PO SCH (08:06)
[2018-08-20] MEDS: PRESERVISION AREDS PO SCH (08:07)
[2018-08-20] MEDS: DOCUSATE SODIUM 100 MG CAP PO SCH (08:23)
[2018-08-20] MEDS: HEPARIN SOD 5,000 UNIT/0.5 ML VIAL SQ SCH (08:24)
[2018-08-20] MEDS: METOPROLOL SUCC 50MG EXT REL TAB PO SCH (09:15)
--- NOTE | 2018-08-20 18:13 | Discharge Summary ---
Date of Service August 20, 2018 Admission HPI Per Admitting Provider Patient is a pleasant 83yo F PMH asthma, CAD, HTN, HLD, hypothyroid, anxiety, CKD III (baseline 1.5-1.7), aortic stenosis, who presents with a 2 week history of fatigue, shortness of breath, HAYNES, and 5-6 days of subjective fevers. She presented to the ER at the start of her symptoms with nausea and headache, where she was found to be dehydrated. She went to her PCP clinic this afternoon for continued/worsening symptoms who noted that after walking in, her O2sat was 84%. This did come up to 93% on resting, but in-office ambulatory oxygen test revealed desaturation to 86% on RA. She was directed to come to the ER for further evaluation. She does note she has been using her prn inhalers more frequently in the past few days. Of note, she was also taken off of her HCTZ/spironolactone 1-2 weeks ago for labile BPs. She follows with Dr. Kaplan/Filemon De La Cruz for pulmonary nodules and ?chemical aerosol exposure. Has not had PFTs in "a long time." She notes she has been actively eating and drinking well since she was told she was dehydrated from the ER. ER course revealed WBC count 10.84, normal BMP aside from Creat 1.64, around baseline. Lactate negative. CXR reveals trace pleural effusion, possible infiltrate vs atelectasis, pulm art HTN. She was given a duoneb and started on rocephin/azithro. Admission Exam Per Admitting Provider Constitutional: WD/WN, vitals as above + obese; no acute distress, not in distress and not diaphoretic Eyes: PERRL, conjunctivae normal, anicteric sclerae ENMT: external ear and nose normal, oropharynx normal Mouth: + dry oral mucous membranes Neck: normal visual inspection Respiratory: normal respiratory effort; no respiratory distress and no labored breathing Auscultation: + wheezes (end expiratory in upper lobes bilaterally) Cardiovascular: Rate/Rhythm: regular rate and regular rhythm Extremities: + edema (1+ bilateral to klein) Gastrointestinal (Abdomen): normal bowel sounds, soft, nontender, no hepatosplenomegaly Musculoskeletal: no cyanosis or clubbing, extremities motor strength 5/5 Skin: no rashes, warm and dry Neurologic: PERRL, EOMI, accommodation nl, no face palsy, no dysarthria Psychiatric: A+Ox3, euthymic affect Principal Diagnosis Pneumonia LV diastolic dysfunction Discharge Exam General: Alert, oriented. No acute distress HEENT: NC/AT, PERRLA, EOMI, oropharynx moist, nasal cannula in nares. Chest: Nontender to palpation. CV: RRR, blowing murmur Resp: Breath sounds clear bilaterally, no increased effort of breathing. No crackles/rhonchi/rales. Abdomen: Soft, nontender, nondistended. No guarding. No organomegaly appreciated. Extremities: 1+ pitting edema bilaterally. Discharge Data Allergies Allergy/AdvReac Type Severity Reaction Status Date / Time bee venom protein (honey bee) Allergy Intermediate HIVES Verified 08/16/18 18:19 Sulfa (Sulfonamide Allergy Unknown MOUTH Verified 08/16/18 18:19 Antibiotics) SWELLED/HIVES TO SULFA DRUGS gabapentin Allergy Rash Verified 08/16/18 18:19 nitrofurantoin AdvReac Severe CAUSES Verified 08/16/18 18:19 HEPATITUS hydromorphone AdvReac Intermediate HALLUCINATI Verified 08/16/18 18:19 ONS Consultations 08/16/18 21:10 ED Decision to Admit Stat Hospital Course (1) Pneumonia: Patient is a pleasant 83yo F with a PMH of asthma, CAD, HTN, HLD, hypothyroidism, anxiety, CKD III (baseline Cr 1.5-1.7), aortic stenosis, who presented with a 2 week history of fatigue, shortness of breath, HAYNES, and 5-6 days of subjective fevers. She was admitted on August 16 and discharged on August 20, 2018. PNA/Hypoxia/Asthma/Weakness/Fever -Likely mixed etiology of dyspnea: fluid overload (pulmonary edema) vs infectious (PNA). Infectious illness causing increased physiologic stress leading to decompensation of HF w/preserved EF -She was treated with rocephin and azithromycin. Switched to PO azithromycin on discharge and discharged with that single antibiotic for 4 additional days of medication. -Still requiring supplemental O2 on discharge. Normally does not use O2 at home. Pt was discharged with oxygen for use at home. -Received diuresis with lasix 40 mg while hospitalized. -Was also on Duonebs and pulmicort. -Cont hctz/spironolactone daily -ECHO: moderate concentric LVH, LV systolic function normal, grade II diastolic dysfunction -PT/OT recommended discharge home rather than a facility for rehab or senior care services. -Close followup with PCP strongly recommended after discharge. Obesity and questionable FREDY -possible hypoventilation syndrome -CXR showed pulmonary artery hypertension -Consider outpt sleep study on discharge. -PCP followup of this strongly recommended. CKD III, H/O RCC s/p L nephrectomy and partial R nephrectomy -close to baseline of 1.5 on discharge. -Close PCP followup strongly recommended. HTN/Paroxysmal SVT -Cont home meds diltiazem 300, metoprolol 100 BID -Restarted HCTZ/spironolactone 25/25mg on discharge. HLD -Cont atorvastatin 20 CAD with Aortic stenosis -Recent echo June 2018 showed EF 60-65, Aortic valve area of 1.5cm^2 -Cont ASA Hypothyroid s/p thyroidectomy -Cont home levothyroxine Anxiety -Cont lorazepam prn and sertraline Total Time Total Time Spent Total Time Spent (In Minutes): 60 Discharge Plan Discharge Items Patient Disposition: Home - Self-Care Reason For Visit: PNEUMONIA Discharge Diagnosis: Pneumonia Discharge Goals: Decrease discomfort and Improve function Activity: Per 'Additional Instructions' section Non-emergency contact: Primary Care Provider Call non-emergency contact if: your symptoms worsen and you have a fever Follow-up/Referrals: Thomas Coleman MD [Primary Care Provider] - Diet: Heart Healthy Addtl Provider Instructions: Pneumonia -You were admitted because you developed a pneumonia, an infection in your lungs. -You were treated with 2 antibiotics while hospitalized but will be discharged with one called Azithromycin. -Please continue to take the azithromycin that was sent to your pharmacy for 4 more days, as directed. -Please continue to use the oxygen you are being discharged with as needed. -Please followup with your primary care provider within the next few days after discharge so that your recovery can continue to be monitored. -Please return to your doctor or the emergency room should you develop a fever once more or your symptoms return or worsen. Hypoxia -While hospitalized you required additional help to breathe. -We started you on oxygen and it appears that you are gonna need oxygen at home as well to help with your breathing. -You are being discharged with oxygen. -Please continue to use as needed while at home. Prescriptions: New azithromycin 250 mg tablet 250 mg PO DAILY 4 Days Qty: 4 RF: 0 Continued atorvastatin 20 mg Tablet 20 mg PO HS RF: 0 docusate sodium 100 mg Capsule 100 mg PO BID RF: 0 levalbuterol HCl 1.25 mg/3 mL Solution For Nebulization 1.25 mg INHALATION Q4 PRN (Reason: Shortness Of Breath) RF: 0 cholecalciferol (vitamin D3) [Vitamin D3] 1,000 unit Tablet 1,000 unit PO QAM RF: 0 PreserVision AREDS 7,160-113-100 [id number] Tablet 1 tab PO BID RF: 0 fluticasone propion-salmeterol [Advair Diskus] 250-50 mcg/dose blister with device 1 inh inhalation BID RF: 0 albuterol sulfate [Ventolin HFA] 90 mcg/actuation HFA aerosol inhaler 2 inh inhalation Q4H PRN (Reason: Shortness Of Breath Or Wheezing) RF: 0 potassium chloride [Klor-Con 10] 10 mEq Tablet Extended Release 10 meq PO BID RF: 0 aspirin 81 mg Tablet,Delayed Release (Dr/Ec) 81 mg PO QAM RF: 0 lorazepam 0.5 mg Tablet 0.5 mg PO BID PRN (Reason: Anxiety) RF: 0 diltiazem HCl 300 mg Capsule,Extended Release 24hr 300 mg PO QAM RF: 0 doxazosin 4 mg Tablet 4 mg PO BID RF: 0 sertraline [Zoloft] 50 mg Tablet 50 mg PO HS RF: 0 Centrum Silver 0.4-300-250 mg-mcg-mcg Tablet 1 tab PO QAM RF: 0 omega 1-apm-gxp-fish oil [Fish Oil] 1,000 mg (120 mg-180 mg) Capsule 1 cap PO QPM RF: 0 levothyroxine 137 mcg Capsule 137 mcg PO QAM RF: 0 ascorbic acid (vitamin C) 500 mg Capsule 500 mg PO QAM RF: 0 irbesartan 300 mg Tablet 300 mg PO QAM RF: 0 acetaminophen-codeine [Tylenol-Codeine #3] 300-30 mg tablet 1 - 2 tab PO Q6H PRN (Reason: pain) Qty: 30 RF: 0 metoprolol succinate 100 mg Tablet Extended Release 24 Hr 100 mg PO BID RF: 0 Stand-Alone Forms: [facility] Discharge Orders: Discharge Order (Routine); Ordered 08/20/18 Ordered By: Tanesha Meraz Admission Data Admit Date/Time: 08/16/18 21:41 Attending Provider: Thomas Gerard Admit Provider: Nellie Rojas Primary Care Provider: Thomas Coleman Other Providers: Tony Stratton Service: Medical Other Interventions: Discharge Summary Assessment (RN) Last Done: 08/20/18 16:04 DC Date/Time DO NOT enter until pt leaves facility: 08/20/18 17:01 Supervising Physician Co-Signing Physician Notes Attending attestation Pt seen and examined in concert with Dr. Meraz. In agreement with the documented findings as noted in the resident documentation with any exceptions or additions as noted here. On examination, CTAB Dyspnea/hypoxia/fever - transition to PO to complete course. Gradually improving shortness of breath still requiring O2 supplementation in the setting of PNA. Elevation in creatinine likely signalling completion of useful diuresis in this patient, so no further bolus diuretics planned. 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 Else see resident documentation as noted. Resident Activity Tracking Resident Involvement: Resident Care Provided Care Provided: Adult Hospital Medicine
[2018-08-20] MEDS ORDERED: AZITHROMYCIN 250 MG TAB PO SCH (21:00)
== END 2018-08-20 17:01 | disposition home or self-care (01) | DRG 194 ==
LOC: ED 17:32 → 2W 21:41 → SUATTDRO 21:41 → 2W 22:27

== ENCOUNTER 2021-05-14 09:57 | Inpatient (IN) ==
--- NOTE | 2021-05-14 10:00 | Emergency Department Note ---
Impression & Plan Acute hypoxemic respiratory failure, Pneumonia, Weakness, Hypomagnesemia ED Provider Note NAME: SIDDHARTH HANSEN AGE: 86 SEX: F : 1935 ARRIVES VIA: Ambulance INFORMANT: Patient, ED PROVIDER(S): Kai Capellan MD Chief Complaint: Low oxygen, weakness HPI: Patient presents from home due to concern for low oxygen weakness. The patient was noted to have low oxygen levels on her typical 4 L in the 80s all d ay yesterday and was having some increasing weakness and exertional fatigue. The patient denies any chest pains or change in shortness of breath. The patient reportedly try to get up off the couch and had sort of rolled off. Patient denies any head strike or LOC and denies any blood thinning medications. The patient states that she does not have any complaints on the fall. EMS was called for lift assist but they noted the patient to be at 79% on her normal feet 4 L and was brought in for assessment. Patient has complained of productive cough which is sometimes discolored. Patient does have a known history of COPD and chronic oxygen use. Patient is vaccinated for COVID-19 but denies any chest pains or shortness of breath and denies any leg swelling or history of DVT or PE. Patient did not take her morning medications. Patient states that she has used a facemask before to help with breathing and would be agreeable to trying this today. Patient denies any obvious weight gain. Patient denies any known sick contacts. ROS: See HPI for pertinent positives and negatives. A total of 10 systems were reviewed and otherwise negative. Past medical history: See below Surgical history: See below Social history: See below Physical Exam: GENERAL: Mildly ill in appearance, fatigued, nonrebreather in place at 10 L. EYE EXAM: Normal conjunctiva. PERRL, no anisocoria and EOM's grossly intact w/o pain. OROPHARYNX: Moist mucus membranes. Grossly normal dentition. NECK: Supple, no nuchal rigidity, no adenopathy, non-tender. No signs of meningismus. LUNGS: Bibasilar crackles noted. Normal chest wall mechanics. HEART: NSR, systolic ejection murmur noted. ABDOMEN: Abdomen soft, non-tender, normo-active bowel sounds, no masses, no rebound or guarding. BACK: No CVA TTP. SKIN: No rashes and no bruising. UPPER EXTREMITIES: Upper extremities are grossly normal. LOWER EXTREMITIES: Grossly normal, no edema. Negative Homans' sign bilaterally NEURO EXAM: A&O x3, cranial nerves II-XII grossly intact, normal speech, moves all 4 extremities on command w/o issue. Differential diagnoses: Reactive airway disease, pneumonia, pneumothorax, COPD, CHF, infections, cardiac ischemia, pulmonary embolism, musculoskeletal, gastrointestinal, as well as other pathologies. Course: Patient was seen and evaluated the bedside. Full history physical exam was performed. EKG interpreted by me Sinus with sinus arrhythmia, rate of 90, normal RI and QRS, prolonged QTC, left axis deviation, slight depression in V6 Imaging Studies: See Below Cardiac monitoring: An order was placed for continuous cardiac monitoring. The monitor shows a rate of 72 with sinus rhythm. MDM: Patient was seen due to concern for weakness and increased oxygen requirement. The patient was placed on BiPAP as the patient was on 10 L via nonrebreather. Patient did have some improvement on the nonrebreather with repositioning prior to the BiPAP. Blood work was obtained and the patient was treated symptomat ically with duo nebs steroid and magnesium. The patient was also ordered empiric antibiotics. Covid order also completed along with blood work and blood cultures. VBG ordered in addition to chest x-ray. Patient did not sustain any overt trauma the patient states that she more slid off the couch and did not fall no head strike no LOC. Patient takes a baby aspirin but no blood thinners. Blood work shows a white count of 12 with a normal H&H and platelet count. The patient's kidney function is unremarkable. VBG does not show any hypercarbia. Magnesium low 1.6 but was ordered for replacement. The patient does have a troponin to 0.16. Urinalysis does appear to be grossly infected. Covid negative. Chest x-ray does show a viral type pneumonia. I did reevaluate the patient the patient was feeling improved. I did speak with the on-call hospitalist JOEY Young and the patient was admitted by Dr. Kruse. Critical Care: I have personally spent 57 minutes of critical care time in direct management of this patient. This includes bedside care, interpretation of diagnostic studies, and testing, discussion with consultants, patient, and family members, and other require inpatient management activities. This 57 minutes is in excess of all separately billable procedures. Past Med/Surg History Medical History Anxiety Asthma WELL CONTROLLED PER PT Asymptomatic postmenopausal status Atrial fibrillation DX YEARS AGO; FOLLOWS WITH DR. MALLOY Breast lump Carpal tunnel syndrome of left wrist Chronic kidney disease ONLY 1 KIDNEY FUNCTIONING 80%; FOLLOWS DR. 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 - NO STENTS/ANGIOPLASTY History of carpal tunnel release RT/ LT History of cataract surgery BL History of colonoscopy History of esophagogastroduodenoscopy (EGD) History of hysterectomy AND OOPHERECTOMY History of thyroidectomy, subtotal History of tooth extraction History of total knee replacement RT/LEFT Family History Brother History of colon resection Colorectal cancer Diabetes Prostate cancer Sister Breast cancer Mother Diabetes Coronary heart disease Father Myocardial infarction Denies family history of Ovarian cancer Social History Smoking Status: Unknown if ever smoked Second Hand Exposure: No; Hx Alcohol Use: No Hx Substance Use: No Preferred Language: Lithuanian Communication Ability: Effective Visual Impairment: No Limitations Hearing Ability: Normal Maint Mechanic Required: No Beliefs That Will Affect Care: None marital status: Current Living Situation: Alone Current Living Situation Comment: spouse lives in a home current occupational status: retired 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 Feels Safe at Home: Yes Childhood Exposure to Second-Hand Smoke: No caffeine: Yes (soda rarley) Dental Care, Regularly: No Physical Activity Frequency: Daily Seatbelt Use: always Sunscreen Use: Yes Assistive Devices: Denture - Upper, Denture - Lower, Glasses and Walker Allergies Allergies Allergy/AdvReac Type Severity Reaction Status Date / Time bee venom protein (honey bee) Allergy Intermediate HIVES Verified 05/14/21 11:49 oxycodone Allergy Unknown Unknown Verified 05/14/21 11:49 Sulfa (Sulfonamide Allergy Unknown MOUTH Verified 05/14/21 11:49 Antibiotics) SWELLED/HIVES TO SULFA DRUGS gabapentin Allergy Rash Verified 05/14/21 11:49 nitrofurantoin AdvReac Severe CAUSES Verified 05/14/21 11:49 HEPATITUS hydromorphone AdvReac Intermediate HALLUCINATI Verified 05/14/21 11:49 ONS Home Meds Home Medications Medication Instructions Recorded Confirmed ascorbic acid (vitamin C) 500 mg 500 mg PO QAM 02/08/18 05/14/21 capsule aspirin 81 mg tablet,delayed 81 mg PO QAM 02/08/18 05/14/21 release cholecalciferol (vitamin D3) 25 1,000 unit PO QAM 02/08/18 05/14/21 mcg (1,000 unit) tablet (Vitamin D3) levalbuterol HCl 1.25 mg/3 mL 1.25 mg INHALATION Q4 PRN 02/08/18 05/14/21 solution for nebulization antziuqe-lzs-uypbx acid 0.4 1 tab PO QAM 02/08/18 05/14/21 mg-lycopene 300 mcg-lutein 250 mcg tablet (Centrum Silver) omega 4-gwt-vqb-fish oil 1,000 mg 1 cap PO QAM 02/08/18 05/14/21 (120 mg-180 mg) capsule (Fish Oil) vitamins A,C,R-yhtc-omrozp 7,160 1 tab PO BID 02/08/18 05/14/21 unit-113 mg-100 unit tablet (PreserVision AREDS) acetaminophen 500 mg tablet 1,000 mg PO Q8H PRN tab 10/08/18 05/14/21 (Tylenol Extra Strength) docusate sodium 100 mg capsule 100 mg PO DAILY PRN cap 05/13/19 05/14/21 Thera Cran 1 dose PO QAM 11/25/19 05/14/21 vitamin B12 1 mg-folic acid 0.8 mg 1 tab PO QAM 11/25/19 05/14/21 tablet vitamin E 1,000 unit capsule 1,000 unit PO QAM 11/25/19 05/14/21 prevagen Extra strength 1 tab PO DAILY 08/12/20 05/14/21 prednisone 5 mg tablet 5 mg PO DAILY tab 05/10/21 05/14/21 Previous Rx's Medication Instructions Recorded Oxygen Home #1 ea 10/19/18 albuterol sulfate 90 mcg/actuation See Rx Instructions .ROUTE 01/25/19 aerosol inhaler (Ventolin HFA) .COMPLEX #972 gram meclizine 12.5 mg tablet 12.5 - 25 mg PO TID PRN #90 tab 11/28/19 metoprolol succinate 100 mg 100 mg PO QAM #90 tab 03/12/20 tablet,extended release 24 hr telmisartan 80 mg tablet 80 mg PO QAM #90 tab 08/12/20 atorvastatin 20 mg tablet 20 mg PO HS #90 tab 11/03/20 furosemide 20 mg tablet (Lasix) 20 mg PO QAM PRN #270 tab 12/25/20 sertraline 100 mg tablet 100 mg PO PM #90 tab 01/05/21 doxazosin 4 mg tablet 4 mg PO BID #180 tab 02/01/21 Flutter Valve #1 ea 02/03/21 Oxygen Home #1 ea 02/03/21 ipratropium bromide 0.02 % 2.5 ml INHALATION QID PRN #150 ml 02/03/21 solution for inhalation lorazepam 0.5 mg tablet 0.5 mg PO BID PRN #180 tab 03/03/21 levothyroxine 137 mcg tablet 137 mcg PO QAM #90 tab 03/11/21 diltiazem HCl 300 mg 300 mg PO QAM #90 cap 05/03/21 capsule,extended release 24 hr Results & Data (ED) Vital Signs Vital Signs - 24 hr 05/14/21 09:57 05/14/21 10:20 05/14/21 10:29 Temperature 36.9 C Temperature Source Oral Pulse Rate 88 82 Pulse Rate [Apical] Respiratory Rate 28 H 24 Respiratory Effort / Characteristics Non-Labored Spontaneous Respiratory Depth Normal Blood Pressure 179/100 H Blood Pressure [Left Arm] Blood Pressure Mean 126 Blood Pressure Mean [Left Arm] Pulse Oximetry 92 95 94 Oxygen Delivery Method Non-rebreather BiPAP Oxygen Flow Rate 10 Fraction of Inspired Oxygen 40 40 SaO2/FiO2 Ratio 235 Sepsis Recent Fever Within 48 Hours Yes Sepsis New/Unexplained Change in Mental Status No Sepsis Action Taken by Nursing No Action Required 05/14/21 11:40 05/14/21 14:16 Temperature Temperature Source Pulse Rate Pulse Rate [Apical] 72 75 Respiratory Rate 16 24 Respiratory Effort / Characteristics Respiratory Depth Blood Pressure Blood Pressure [Left Arm] 174/95 H 185/107 H Blood Pressure Mean Blood Pressure Mean [Left Arm] 121 133 Pulse Oximetry 96 95 Oxygen Delivery Method BiPAP BiPAP Oxygen Flow Rate Fraction of Inspired Oxygen SaO2/FiO2 Ratio Sepsis Recent Fever Within 48 Hours Sepsis New/Unexplained Change in Mental Status Sepsis Action Taken by Retirement Medications Current Medication List: was personally reviewed by me Laboratory Data Attestation: I reviewed the patient's lab results. Result diagrams: 05/14/21 Unknown 05/14/21 Unknown Lab Results 05/14/21 05/14/21 05/14/21 Range/Units 10:30 10:38 10:38 WBC (4.8-10.8) K/uL RBC (4.2-5.4) M/uL Hgb (12.0-16.0) g/dL Hct (37-47) % MCV (80-100) fL MCH (25-34) pg MCHC (32-36) g/dL RDW Std Deviation (36.4-46.3) fL RDW Coeff of Yanelis (11.5-14.5) % Plt Count (130-400) K/uL MPV (7.4-10.4) fL Immature Gran % (Auto) % Neut % (Auto) % Lymph % (Auto) % Young % (Auto) % Eos % (Auto) % Baso % (Auto) % Neut # (Auto) (1.4-6.5) K/uL Lymph # (Auto) (1.2-3.4) K/uL Young # (Auto) (0.11-0.59) K/uL Eos # (Auto) (0-0.5) K/uL Baso # (Auto) (0-0.2) K/uL Immature Gran # (Auto) (0.00-0.02) K/uL PT 13.3 H (9.0-12.0) Seconds INR 1.3 H (0.9-1.1) APTT 32.7 H (21.0-31.0) Seconds PTT Ratio 1.2 VBG pH (7.36-7.41) VBG pCO2 (38-50) mmHg VBG pO2 mmHg VBG HCO3 mmol/L VBG O2 Saturation % VBG Base Excess mEq/L Barometric Pressure mm/Hg Sodium (136-145) mmol/L Potassium (3.5-5.1) mmol/L Chloride (98-107) mmol/L Carbon Dioxide (21-32) mmol/L Anion Gap (3-11) BUN (6-23) mg/dl Creatinine (0.6-1.2) mg/dl Est Cr Clr Drug Dosing ml/min Est GFR ( Amer) ml/min Est GFR (Non-Af Amer) ml/min BUN/Creatinine Ratio (10-20) Glucose (70-99(Fasting)) mg/dl Lactate 0.8 (0.4-2.0) mmol/L Calcium (8.5-10.1) mg/dl Magnesium (1.7-2.4) mg/dl Total Bilirubin (0.2-1.0) mg/dl AST (13-39) U/L ALT (7-52) U/L Alkaline Phosphatase (34-104) U/L Troponin I (0-0.04) ng/ml C-Reactive Protein (0-0.5) mg/dl B-Natriuretic Peptide (0-100) pg/ml Total Protein (6.0-8.3) gm/dl Albumin (3.4-5.0) gm/dl Globulin (2.5-4.0) gm/dl Albumin/Globulin Ratio (0.9-2) Procalcitonin (0-0.5) ng/ml Urine Color Urine Appearance (Clear) Urine pH (4.5-7.5) Ur Specific [place] (1.000-1.030) Urine Protein (Negative) Urine Glucose (UA) (Negative) Urine Ketones (Negative) Urine Blood (Negative) Urine Nitrite (Negative) Urine Bilirubin (Negative) Urine Urobilinogen (Negative) Ur Leukocyte Esterase (Negative) Urine WBC (Auto) (0-5) /hpf Urine RBC (Auto) (0-4) /hpf U Hyaline Cast (Auto) (0-5) /lpf U Epithel Cells (Auto) (0-5) /lpf Urine Bacteria (Auto) (Negative) SARS-CoV-2, RNA, NAAT NEGATIVE (NEGATIVE) 05/14/21 05/14/21 05/14/21 Range/Units 10:38 10:38 10:38 WBC (4.8-10.8) K/uL RBC (4.2-5.4) M/uL Hgb (12.0-16.0) g/dL Hct (37-47) % MCV (80-100) fL MCH (25-34) pg MCHC (32-36) g/dL RDW Std Deviation (36.4-46.3) fL RDW Coeff of Yanelis (11.5-14.5) % Plt Count (130-400) K/uL MPV (7.4-10.4) fL Immature Gran % (Auto) % Neut % (Auto) % Lymph % (Auto) % Young % (Auto) % Eos % (Auto) % Baso % (Auto) % Neut # (Auto) (1.4-6.5) K/uL Lymph # (Auto) (1.2-3.4) K/uL Young # (Auto) (0.11-0.59) K/uL Eos # (Auto) (0-0.5) K/uL Baso # (Auto) (0-0.2) K/uL Immature Gran # (Auto) (0.00-0.02) K/uL PT (9.0-12.0) Seconds INR (0.9-1.1) APTT (21.0-31.0) Seconds PTT Ratio VBG pH 7.44 H (7.36-7.41) VBG pCO2 43 (38-50) mmHg VBG pO2 36 mmHg VBG HCO3 29 mmol/L VBG O2 Saturation 66.2 % VBG Base Excess 3.9 mEq/L Barometric Pressure 732.0 mm/Hg Sodium (136-145) mmol/L Potassium (3.5-5.1) mmol/L Chloride (98-107) mmol/L Carbon Dioxide (21-32) mmol/L Anion Gap (3-11) BUN (6-23) mg/dl Creatinine (0.6-1.2) mg/dl Est Cr Clr Drug Dosing ml/min Est GFR ( Amer) ml/min Est GFR (Non-Af Amer) ml/min BUN/Creatinine Ratio (10-20) Glucose (70-99(Fasting)) mg/dl Lactate (0.4-2.0) mmol/L Calcium (8.5-10.1) mg/dl Magnesium (1.7-2.4) mg/dl Total Bilirubin (0.2-1.0) mg/dl AST (13-39) U/L ALT (7-52) U/L Alkaline Phosphatase (34-104) U/L Troponin I (0-0.04) ng/ml C-Reactive Protein 14.34 H (0-0.5) mg/dl B-Natriuretic Peptide (0-100) pg/ml Total Protein (6.0-8.3) gm/dl Albumin (3.4-5.0) gm/dl Globulin (2.5-4.0) gm/dl Albumin/Globulin Ratio (0.9-2) Procalcitonin 0.09 (0-0.5) ng/ml Urine Color Urine Appearance (Clear) Urine pH (4.5-7.5) Ur Specific [place] (1.000-1.030) Urine Protein (Negative) Urine Glucose (UA) (Negative) Urine Ketones (Negative) Urine Blood (Negative) Urine Nitrite (Negative) Urine Bilirubin (Negative) Urine Urobilinogen (Negative) Ur Leukocyte Esterase (Negative) Urine WBC (Auto) (0-5) /hpf Urine RBC (Auto) (0-4) /hpf U Hyaline Cast (Auto) (0-5) /lpf U Epithel Cells (Auto) (0-5) /lpf Urine Bacteria (Auto) (Negative) SARS-CoV-2, RNA, NAAT (NEGATIVE) 05/14/21 05/14/21 05/14/21 Range/Units 10:38 10:38 Unknown WBC 12.50 H (4.8-10.8) K/uL RBC 4.26 (4.2-5.4) M/uL Hgb 12.9 (12.0-16.0) g/dL Hct 38.8 (37-47) % MCV 91.1 (80-100) fL MCH 30.3 (25-34) pg MCHC 33.2 (32-36) g/dL RDW Std Deviation 51.6 H (36.4-46.3) fL RDW Coeff of Yanelis 15.5 H (11.5-14.5) % Plt Count 192 (130-400) K/uL MPV 9.7 (7.4-10.4) fL Immature Gran % (Auto) 0.5 % Neut % (Auto) 78.3 % Lymph % (Auto) 12.3 % Young % (Auto) 6.7 % Eos % (Auto) 1.9 % Baso % (Auto) 0.3 % Neut # (Auto) 9.78 H (1.4-6.5) K/uL Lymph # (Auto) 1.54 (1.2-3.4) K/uL Young # (Auto) 0.84 H (0.11-0.59) K/uL Eos # (Auto) 0.24 (0-0.5) K/uL Baso # (Auto) 0.04 (0-0.2) K/uL Immature Gran # (Auto) 0.06 H (0.00-0.02) K/uL PT (9.0-12.0) Seconds INR (0.9-1.1) APTT (21.0-31.0) Seconds PTT Ratio VBG pH (7.36-7.41) VBG pCO2 (38-50) mmHg VBG pO2 mmHg VBG HCO3 mmol/L VBG O2 Saturation % VBG Base Excess mEq/L Barometric Pressure mm/Hg Sodium (136-145) mmol/L Potassium (3.5-5.1) mmol/L Chloride (98-107) mmol/L Carbon Dioxide (21-32) mmol/L Anion Gap (3-11) BUN (6-23) mg/dl Creatinine (0.6-1.2) mg/dl Est Cr Clr Drug Dosing ml/min Est GFR ( Amer) ml/min Est GFR (Non-Af Amer) ml/min BUN/Creatinine Ratio (10-20) Glucose (70-99(Fasting)) mg/dl Lactate (0.4-2.0) mmol/L Calcium (8.5-10.1) mg/dl Magnesium (1.7-2.4) mg/dl Total Bilirubin (0.2-1.0) mg/dl AST (13-39) U/L ALT (7-52) U/L Alkaline Phosphatase (34-104) U/L Troponin I (0-0.04) ng/ml C-Reactive Protein (0-0.5) mg/dl B-Natriuretic Peptide 1470 H (0-100) pg/ml Total Protein (6.0-8.3) gm/dl Albumin (3.4-5.0) gm/dl Globulin (2.5-4.0) gm/dl Albumin/Globulin Ratio (0.9-2) Procalcitonin Cancelled (0-0.5) ng/ml Urine Color Urine Appearance (Clear) Urine pH (4.5-7.5) Ur Specific [place] (1.000-1.030) Urine Protein (Negative) Urine Glucose (UA) (Negative) Urine Ketones (Negative) Urine Blood (Negative) Urine Nitrite (Negative) Urine Bilirubin (Negative) Urine Urobilinogen (Negative) Ur Leukocyte Esterase (Negative) Urine WBC (Auto) (0-5) /hpf Urine RBC (Auto) (0-4) /hpf U Hyaline Cast (Auto) (0-5) /lpf U Epithel Cells (Auto) (0-5) /lpf Urine Bacteria (Auto) (Negative) SARS-CoV-2, RNA, NAAT (NEGATIVE) 05/14/21 05/14/21 Range/Units Unknown Unknown WBC (4.8-10.8) K/uL RBC (4.2-5.4) M/uL Hgb (12.0-16.0) g/dL Hct (37-47) % MCV (80-100) fL MCH (25-34) pg MCHC (32-36) g/dL RDW Std Deviation (36.4-46.3) fL RDW Coeff of Yanelis (11.5-14.5) % Plt Count (130-400) K/uL MPV (7.4-10.4) fL Immature Gran % (Auto) % Neut % (Auto) % Lymph % (Auto) % Young % (Auto) % Eos % (Auto) % Baso % (Auto) % Neut # (Auto) (1.4-6.5) K/uL Lymph # (Auto) (1.2-3.4) K/uL Young # (Auto) (0.11-0.59) K/uL Eos # (Auto) (0-0.5) K/uL Baso # (Auto) (0-0.2) K/uL Immature Gran # (Auto) (0.00-0.02) K/uL PT (9.0-12.0) Seconds INR (0.9-1.1) APTT (21.0-31.0) Seconds PTT Ratio VBG pH (7.36-7.41) VBG pCO2 (38-50) mmHg VBG pO2 mmHg VBG HCO3 mmol/L VBG O2 Saturation % VBG Base Excess mEq/L Barometric Pressure mm/Hg Sodium 139 (136-145) mmol/L Potassium 3.8 (3.5-5.1) mmol/L Chloride 103 (98-107) mmol/L Carbon Dioxide 27 (21-32) mmol/L Anion Gap 9 (3-11) BUN 20 (6-23) mg/dl Creatinine 1.09 (0.6-1.2) mg/dl Est Cr Clr Drug Dosing 32.9 ml/min Est GFR ( Amer) 52.9 ml/min Est GFR (Non-Af Amer) 45.6 ml/min BUN/Creatinine Ratio 18.3 (10-20) Glucose 98 (70-99(Fasting)) mg/dl Lactate (0.4-2.0) mmol/L Calcium 9.6 (8.5-10.1) mg/dl Magnesium 1.6 L (1.7-2.4) mg/dl Total Bilirubin 1.0 (0.2-1.0) mg/dl AST 18 (13-39) U/L ALT 17 (7-52) U/L Alkaline Phosphatase 56 (34-104) U/L Troponin I 0.16 H* (0-0.04) ng/ml C-Reactive Protein (0-0.5) mg/dl B-Natriuretic Peptide (0-100) pg/ml Total Protein 6.8 (6.0-8.3) gm/dl Albumin 4.0 (3.4-5.0) gm/dl Globulin 2.8 (2.5-4.0) gm/dl Albumin/Globulin Ratio 1.4 (0.9-2) Procalcitonin (0-0.5) ng/ml Urine Color Yellow Urine Appearance Clear (Clear) Urine pH 8.0 H (4.5-7.5) Ur Specific [place] 1.016 (1.000-1.030) Urine Protein 1+ H (Negative) Urine Glucose (UA) Negative (Negative) Urine Ketones Trace H (Negative) Urine Blood Negative (Negative) Urine Nitrite Positive A (Negative) Urine Bilirubin Negative (Negative) Urine Urobilinogen Negative (Negative) Ur Leukocyte Esterase 1+ H (Negative) Urine WBC (Auto) 5-10 H (0-5) /hpf Urine RBC (Auto) 5-10 H (0-4) /hpf U Hyaline Cast (Auto) 1-5 (0-5) /lpf U Epithel Cells (Auto) >30 H (0-5) /lpf Urine Bacteria (Auto) 4+ H (Negative) SARS-CoV-2, RNA, NAAT (NEGATIVE) Administered Medications Magnesium Sulfate/Dextrose (Magnesium Sulfate / D5w) 1 gm in 100 mls @ 50 mls/hr IV Q2H JACQUES Stop: 05/14/21 16:29 Last Admin: 05/14/21 14:50 Dose: 50 mls/hr Documented by: [id number] Infusion: 05/14/21 14:50 Dose: 50 mls/hr Documented by: [id number] Admin: 05/14/21 12:50 Dose: 50 mls/hr Documented by: [id number] Discontinued Medications Albuterol (Albut/Ipratrop 3mg/0.5mg Neb 3 Ml Vial) 3 ml NEB NOW STA; Protocol Stop: 05/14/21 10:58 Last Admin: 05/14/21 11:24 Dose: 3 ml Documented by: [id number] Furosemide (Furosemide Inj 20 Mg/2 Ml Vial) 20 mg IV ONE ONE Stop: 05/14/21 13:46 Last Admin: 05/14/21 13:44 Dose: 20 mg Documented by: [id number] Cefepime HCl (Maxipime) 2,000 mg in 20 mls @ 5 mls/min IV NOW STA; Protocol Stop: 05/14/21 10:15 Last Admin: 05/14/21 10:40 Dose: 5 mls/min Documented by: [id number] Magnesium Sulfate/Dextrose (Magnesium Sulfate / D5w) 1 gm in 100 mls @ 100 mls/hr IV NOW STA Stop: 05/14/21 11:57 Last Infusion: 05/14/21 12:25 Dose: 0 mls/hr Documented by: [id number] Admin: 05/14/21 11:24 Dose: 100 mls/hr Documented by: [id number] Azithromycin 500 mg/ Dextrose 255 mls @ 125 mls/hr IV ONE ONE Stop: 05/14/21 14:52 Last Admin: 05/14/21 13:44 Dose: 125 mls/hr Documented by: [id number] Methylprednisolone (Methylprednisolone 40 Mg/Ml Vial) 30 mg IV NOW STA Stop: 05/14/21 10:58 Last Admin: 05/14/21 11:24 Dose: 30 mg Documented by: [id number] Methylprednisolone (Methylprednisolone 40 Mg/Ml Vial) 30 mg IV NOW STA Stop: 05/14/21 12:57 Last Admin: 05/14/21 13:44 Dose: 30 mg Documented by: [id number] Imaging Data Radiologist's Impression: Chest X-Ray 05/14/21 10:12 XR chest 1V portable CLINICAL HISTORY: SEPSIS. COMPARISON STUDY: 03/30/2018 TECHNIQUE: 1 view of the chest FINDINGS: Single frontal view of the chest demonstrates the cardiomediastinal silhouette to be within normal limits. Patchy interstitial and alveolar opacities are present bilaterally. The findings are most characteristic of a viral type pneumonitis. Covid 19 pneumonia should be excluded. There is no evidence for pleural effusion. There is no evidence for vascular congestion. There is no acute osseous pathology. IMPRESSION: 1. Patchy interstitial and alveolar opacities bilaterally characteristic of a viral type pneumonitis and probable early Covid 19 pneumonia. ACT 112: Negative or not required by law. Electronically signed by: Perry Brambila M.D. 05/14/2021 11:17 AM Discharge Plan Visit Data Chief Complaint: Fall Stated Complaint: WEAKNESS, DIZZY, NAUSEA, HYPOXIA, FALL ED Provider: Kai Capellan Discharge Problem: Acute hypoxemic respiratory failure, Pneumonia, Weakness, Hypomagnesemia Patient Disposition: Admitted As Inpatient Forms Stand Alone Forms: [facility] Prescriptions Prescriptions: No Action albuterol sulfate [Ventolin HFA] 90 mcg/actuation HFA aerosol inhaler See Rx Instructions .ROUTE .COMPLEX Qty: 972 RF: 1 meclizine 12.5 mg tablet 12.5 - 25 mg PO TID PRN (Reason: dizziness) Qty: 90 RF: 0 metoprolol succinate 100 mg tablet extended release 24 hr 100 mg PO QAM Qty: 90 RF: 3 telmisartan 80 mg tablet 80 mg PO QAM Qty: 90 RF: 3 atorvastatin 20 mg tablet 20 mg PO HS Qty: 90 RF: 3 furosemide [Lasix] 20 mg tablet 20 mg PO QAM PRN (Reason: weight gain) Qty: 270 RF: 1 sertraline 100 mg tablet 100 mg PO PM Qty: 90 RF: 3 doxazosin 4 mg tablet 4 mg PO BID Qty: 180 RF: 3 lorazepam 0.5 mg tablet 0.5 mg PO BID PRN (Reason: anxiety) Qty: 180 RF: 0 levothyroxine 137 mcg tablet 137 mcg PO QAM Qty: 90 RF: 3 diltiazem HCl 300 mg capsule,extended release 24hr 300 mg PO QAM Qty: 90 RF: 3 acetaminophen [Tylenol Extra Strength] 500 mg tablet 1,000 mg PO Q8H PRN (Reason: pain) RF: 0 (DME) Oxygen Home Liters Per Minute See Dose Instructions .ROUTE .MEDSUPPLY Qty: 1 RF: 0 prevagen Extra strength 1 tab PO DAILY RF: 0 prednisone 5 mg tablet 5 mg PO DAILY RF: 0 (DME) Oxygen Home Liters Per Minute See Rx Instructions .MEDSUPPLY Qty: 1 RF: 0 ipratropium bromide 0.02 % solution 2.5 ml inhalation QID PRN (Reason: shortness of breath or wheezing) Qty: 150 RF: 5 (DME) Flutter Valve Device See Rx Instructions .ROUTE .MEDSUPPLY Qty: 1 RF: 0 levalbuterol HCl 1.25 mg/3 mL Solution For Nebulization 1.25 mg INHALATION Q4 PRN (Reason: Shortness Of Breath) RF: 0 cholecalciferol (vitamin D3) [Vitamin D3] 1,000 unit Tablet 1,000 unit PO QAM RF: 0 PreserVision AREDS [id number] Tablet 1 tab PO BID RF: 0 docusate sodium 100 mg capsule 100 mg PO DAILY PRN (Reason: Constipation) RF: 0 vitamin E 1,000 unit Capsule 1,000 unit PO QAM RF: 0 vitamin [id number] 1-0.8 mg Tablet 1 tab PO QAM RF: 0 Thera Cran 1 dose PO QAM RF: 0 aspirin 81 mg Tablet,Delayed Release (Dr/Ec) 81 mg PO QAM RF: 0 Centrum Silver 0.4-300-250 mg-mcg-mcg Tablet 1 tab PO QAM RF: 0 omega 8-pfu-odg-fish oil [Fish Oil] 1,000 mg (120 mg-180 mg) Capsule 1 cap PO QAM RF: 0 ascorbic acid (vitamin C) 500 mg Capsule 500 mg PO QAM RF: 0 Referrals Referrals: Amador Coleman MD [Primary Care Provider] -
[2021-05-14] MEDS ORDERED: CEFEPIME 2,000 MG/20 ML VIAL IV STA (10:12)
[2021-05-14 10:28] LABS: Basophils # (auto) 0.04 K/uL (0-0.2); Basophils % (auto) 0.3 %; Eosinophils # (auto) 0.24 K/uL (0-0.5); Eosinophils % (auto) 1.9 %; Hematocrit (blood only) 38.8 % (37-47); Hemoglobin 12.9 g/dL (12.0-16.0); Immature Granulocytes # (auto) 0.06 K/uL (0.00-0.02); Immature Granulocytes % (auto) 0.5 %; Lymphocytes # (auto) 1.54 K/uL (1.2-3.4); Lymphocytes % (auto) 12.3 %; Mean Corpuscular Hemoglobin 30.3 pg (25-34); Mean Corpuscular Hgb Conc 33.2 g/dL (32-36); Mean Corpuscular Volume 91.1 fL (80-100); Mean Platelet Volume 9.7 fL (7.4-10.4); Monocytes # (auto) 0.84 K/uL (0.11-0.59); Monocytes % (auto) 6.7 %; Neutrophils # (auto) 9.78 K/uL (1.4-6.5); Neutrophils % (auto) 78.3 %; Platelet Count 192 K/uL (130-400); RDW Coefficient of Variation 15.5 % (11.5-14.5); RDW Standard Deviation 51.6 fL (36.4-46.3); Red Blood Count 4.26 M/uL (4.2-5.4)
[2021-05-14 10:35] LABS: Appearance Urine Clear (Clear); Bacteria Urine Automated 4+ (Negative); Bilirubin Urine Negative (Negative); Blood Urine Negative (Negative); Color Urine Yellow; Epithelial Cell Urine Auto >30 /lpf (0-5); Glucose Urine UA Negative (Negative); Ketones Urine Trace (Negative); Leukocyte Esterase Urine 1+ (Negative); Nitrite Urine Positive (Negative); Specific Gravity Urine 1.016 (1.000-1.030); Urobilinogen Urine Negative (Negative)
[2021-05-14 10:56] LABS: Troponin I 0.16 ng/ml (0-0.04)
[2021-05-14] MEDS ORDERED: ALBUT/IPRATROP 3MG/0.5MG NEB 3 ML VIAL NEB STA (10:57)
[2021-05-14] MEDS ORDERED: MAGNESIUM SULFATE / D5W 1 GM/100 ML BAG IV STA (10:58)
[2021-05-14 10:59] LABS: Albumin Globulin Ratio 1.4 (0.9-2); BUN Creatinine Ratio 18.3 (10-20); Calcium 9.6 mg/dl (8.5-10.1); Creatinine Clr Calc Pharmacy 32.9 ml/min; Est GFR (African American) 52.9 ml/min; Est GFR (Non-African American) 45.6 ml/min; Globulin 2.8 gm/dl (2.5-4.0); Magnesium 1.6 mg/dl (1.7-2.4); Potassium 3.8 mmol/L (3.5-5.1); Total Protein 6.8 gm/dl (6.0-8.3)
[2021-05-14 11:06] LABS: INR 1.3 (0.9-1.1); Partial Thromboplastin Ratio 1.2; Partial Thromboplastin Time 32.7 Seconds (21.0-31.0); Prothrombin Time 13.3 Seconds (9.0-12.0)
--- NOTE | 2021-05-14 11:18 | XRay Report ---
XR chest 1V portable CLINICAL HISTORY: SEPSIS. COMPARISON STUDY: 03/30/2018 TECHNIQUE: 1 view of the chest FINDINGS: Single frontal view of the chest demonstrates the cardiomediastinal silhouette to be within normal li mits. Patchy interstitial and alveolar opacities are present bilaterally. The findings are most kayce cteristic of a viral type pneumonitis. Covid 19 pneumonia should be excluded. There is no evidence fo r pleural effusion. There is no evidence for vascular congestion. There is no acute osseous pathology . IMPRESSION: 1. Patchy interstitial and alveolar opacities bilaterally characteristic of a viral type pneumonitis and probable early Covid 19 pneumonia. ACT 112: Negative or not required by law. Electronically signed by: Perry Brambila M.D. 05/14/2021 11:17 AM
[2021-05-14 11:20] LABS: Protein Urine 1+ (Negative)
[2021-05-14 11:26] LABS: Base Excess VBG 3.9 mEq/L; Oxygen Saturation VBG 66.2 %; pH VBG 7.44 (7.36-7.41)
[2021-05-14] MEDS: MAGNESIUM SULFATE / D5W 1 GM/100 ML BAG IV SCH ×2 (12:50→14:50)
[2021-05-14] MEDS ORDERED: AZITHROMYCIN 500 MG in DEXTROSE 5% 250 ML IV ONE (12:50)
--- NOTE | 2021-05-14 13:16 | History & Physical Report ---
Date of Service May 14, 2021 Assessment & Plan (1) Hypoxia: Plan: Multifactorial at current with remaining bilateral opacities- consistent with post COVID inflammation or new viral PNA and/or COPD exacerbation - Influenza A/B sent - Sputum production, fevers, cough, increase in oxygen requirement, hypoxia - Solumedrol additional 30mg IV given for total of 60mg - VBG pending from EMD sending- this was obtained while on BiPAP- - Continue with Cefepime for UTI and possible pneumonia - Azithromycin 500mg IV now and then 250mg IV daily- PNA and COPD exacerbation - PCT pending, CRP elevated - Scheduled nebs with flutter valve She is currently needing continuous BiPAP to maintain oxygenation >84^% but is speaking in full senteneces without tachypnea and/or tachycardia- continue the above and narrow down therapeutics within next 24-48 hours (2) UTI (urinary tract infection): Plan: Awaiting culture - Continue Cefepime- patient denies symptoms other than fevers (3) COPD (chronic obstructive pulmonary disease): Plan: As above- likely COPD exacerbation - Continue supporting care - BiPAP for hypoxia and Tachypnea - She is on home O2 so should continue oxygen support (4) Asthma: Plan: As above (5) Hypertension: Plan: As above- home medications administered once to floor - Continue telemsartan (6) Hypothyroidism: Plan: Continue Synthroid 137mcg tabs (7) Aortic stenosis: Plan: ECHO in 03/27- EF 65-70%- moderate - was just seen by cardiology earlier this week - Will give Lasix 20mg IV once now and then back to her PRN dosing - BB, ARB, Volume monitoring- continue (8) Stage III chronic kidney disease: Plan: Secondary to nephrectomy and history of renal cell carcinoma - renally dose medications - avoid further nephrotoxic medications as able and if needed, minimize exposure time (9) Renal cell carcinoma: Plan: As above (10) Hypercholesterolemia: Plan: Continue statin (11) Paroxysmal SVT (supraventricular tachycardia): Plan: Continue metoprolol and diltiazem History of Present Illness Primary Care Provider: Amador Coleman MD 86 YOF with past medical history of: COPD on home oxygen, COVID 19 fall 21, urinary incontinence, vaginal prolapse with pessary, HTN, rotator cuff injury, bilateral knee replacement, renal cell carcinoma (nephrectomy), HLD, PAF, , CVD. Patient comes to the hospital today for fall at home, upon EMS arriving the noticed the patient to be hypoxic in the 80s and was brought to the EMD. The patient was placed on BiPAP given 30mg IV solumedrol, routine blood work performed to include Troponin I, UA, CXR, ECG. She was also started on Cefepime, VBG obtained and hospitalist service was notified for admission. Patient endorses that over the past 2 days she has been having chills and sweating at night, with worsening shortness of breath. Her daughter accompanies her at the bedside and stated she wanted her to come to the hospital yesterday but patient refused. She noted that her mom has been having increased cough, weakness, shortness of breath with increase in sputum production. She overall states that she feels better with the BiPAP on 12/08 an did have hypoxia to 84% while off of this. Patient CXR continues to show patchy bilateral opacities that appears unchanged from her CT scan performed with her COVID. Overall patient will be admitted for hypoxia that is multifactorial at this time to include COPD exacerbation, possible pneumonia, UTI. Will give her lasix 20mg IV now for crackles throughout and elevated BNP. Her inflammatory markers remain elevated, influenza and sputum culture are pending. Continue to trend Troponin I. Allergies Allergy/AdvReac Type Severity Reaction Status Date / Time bee venom protein (honey bee) Allergy Intermediate HIVES Verified 05/14/21 11:49 oxycodone Allergy Unknown Unknown Verified 05/14/21 11:49 Sulfa (Sulfonamide Allergy Unknown MOUTH Verified 05/14/21 11:49 Antibiotics) SWELLED/HIVES TO SULFA DRUGS gabapentin Allergy Rash Verified 05/14/21 11:49 nitrofurantoin AdvReac Severe CAUSES Verified 05/14/21 11:49 HEPATITUS hydromorphone AdvReac Intermediate HALLUCINATI Verified 05/14/21 11:49 ONS Home Medications Medication Instructions Recorded Confirmed Type ascorbic acid (vitamin C) 500 mg 500 mg PO QAM 02/08/18 05/14/21 History capsule aspirin 81 mg tablet,delayed 81 mg PO QAM 02/08/18 05/14/21 History release cholecalciferol (vitamin D3) 25 1,000 unit PO QAM 02/08/18 05/14/21 History mcg (1,000 unit) tablet (Vitamin D3) levalbuterol HCl 1.25 mg/3 mL 1.25 mg INHALATION Q4 PRN 02/08/18 05/14/21 History solution for nebulization epbikhpu-cek-umvxc acid 0.4 1 tab PO QAM 02/08/18 05/14/21 History mg-lycopene 300 mcg-lutein 250 mcg tablet (Centrum Silver) omega 1-sla-bpt-fish oil 1,000 mg 1 cap PO QAM 02/08/18 05/14/21 History (120 mg-180 mg) capsule (Fish Oil) vitamins A,C,J-puhz-vktrto 7,160 1 tab PO BID 02/08/18 05/14/21 History unit-113 mg-100 unit tablet (PreserVision AREDS) acetaminophen 500 mg tablet 1,000 mg PO Q8H PRN tab 10/08/18 05/14/21 History (Tylenol Extra Strength) Oxygen Home #1 ea 10/19/18 05/14/21 Rx albuterol sulfate 90 mcg/actuation See Rx Instructions .ROUTE 01/25/19 05/14/21 Rx aerosol inhaler (Ventolin HFA) .COMPLEX #972 gram docusate sodium 100 mg capsule 100 mg PO DAILY PRN cap 05/13/19 05/14/21 History Thera Cran 1 dose PO QAM 11/25/19 05/14/21 History vitamin B12 1 mg-folic acid 0.8 mg 1 tab PO QAM 11/25/19 05/14/21 History tablet vitamin E 1,000 unit capsule 1,000 unit PO QAM 11/25/19 05/14/21 History meclizine 12.5 mg tablet 12.5 - 25 mg PO TID PRN #90 tab 11/28/19 05/14/21 Rx metoprolol succinate 100 mg 100 mg PO QAM #90 tab 03/12/20 05/14/21 Rx tablet,extended release 24 hr prevagen Extra strength 1 tab PO DAILY 08/12/20 05/14/21 History telmisartan 80 mg tablet 80 mg PO QAM #90 tab 08/12/20 05/14/21 Rx atorvastatin 20 mg tablet 20 mg PO HS #90 tab 11/03/20 05/14/21 Rx furosemide 20 mg tablet (Lasix) 20 mg PO QAM PRN #270 tab 12/25/20 05/14/21 Rx sertraline 100 mg tablet 100 mg PO PM #90 tab 01/05/21 05/14/21 Rx doxazosin 4 mg tablet 4 mg PO BID #180 tab 02/01/21 05/14/21 Rx Flutter Valve #1 ea 02/03/21 05/14/21 Rx Oxygen Home #1 ea 02/03/21 05/14/21 Rx ipratropium bromide 0.02 % 2.5 ml INHALATION QID PRN #150 ml 02/03/21 05/14/21 Rx solution for inhalation lorazepam 0.5 mg tablet 0.5 mg PO BID PRN #180 tab 03/03/21 05/14/21 Rx levothyroxine 137 mcg tablet 137 mcg PO QAM #90 tab 03/11/21 05/14/21 Rx diltiazem HCl 300 mg 300 mg PO QAM #90 cap 05/03/21 05/14/21 Rx capsule,extended release 24 hr prednisone 5 mg tablet 5 mg PO DAILY tab 05/10/21 05/14/21 History Past Med/Surg History Medical History (Updated 05/14/21 @ 18:56 by Marta Kruse MD) Anxiety Asthma WELL CONTROLLED PER PT Asymptomatic postmenopausal status Atrial fibrillation DX YEARS AGO; FOLLOWS WITH DR. MALLOY Breast lump Carpal tunnel syndrome of left wrist Chronic kidney disease ONLY 1 KIDNEY FUNCTIONING 80%; FOLLOWS DR. 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 - NO STENTS/ANGIOPLASTY History of carpal tunnel release RT/ LT History of cataract surgery BL History of colonoscopy History of esophagogastroduodenoscopy (EGD) History of hysterectomy AND OOPHERECTOMY History of thyroidectomy, subtotal History of tooth extraction History of total knee replacement RT/LEFT Family History Brother History of colon resection Colorectal cancer Diabetes Prostate cancer Sister Breast cancer Mother Diabetes Coronary heart disease Father Myocardial infarction Denies family history of Ovarian cancer Social History Smoking Status: Never smoker Second Hand Exposure: No; Do You Dip or Chew Tobacco: No; Hx Alcohol Use: No Hx Substance Use: No Preferred Language: Swazi Communication Ability: Effective Visual Impairment: No Limitations Hearing Ability: Normal Gas Jockey Required: No Beliefs That Will Affect Care: None marital status: Current Living Situation: Alone Current Living Situation Comment: spouse lives in a home current occupational status: retired 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 Other Information That Helps Us Care for You: No Feels Safe at Home: Yes Childhood Exposure to Second-Hand Smoke: No caffeine: Yes (soda rarley) Dental Care, Regularly: No Physical Activity Frequency: Daily Seatbelt Use: always Sunscreen Use: Yes Assistive Devices: Oxygen - Continuous and Walker Review of Systems Review of Systems: REVIEW OF SYSTEMS: Constitutional: (+) fever, sweats or chills Eyes: No diplopia, no worsening or blurred vision ENT: normal hearing, no trouble swallowing Respiratory: (+) cough, sputum, dyspnea at rest or on exertion Cardiovascular: No chest pain, tightness or palpitations Abdomen: No pain, nausea, vomiting, diarrhea or constipation Musculoskeletal: (+) back pain, calf pain, swelling Neurologic: No weakness, numbness/tingling, or balance problems Psychiatric: No anxiety or depression Skin: (+) corn and bunion to left foot Physical Exam Physical Exam: PHYSICAL EXAM: General: awake, alert, no apparent distress Head: Normocephalic, atraumatic ENT: PERRL, EOMI, no pharyngeal exudate, mucous membranes moist Neuro: AAO x 3, speech clear and appropriate, strength intact bilaterally 5/5, sensation intact and equal all extremities and dermatomes, no pronator drift Chest: equal rise and fall of the chest, tachypneic, scattered crackles throughout, decreased air movement in bases, on BiPAP Cardiac: Regular rate and rhythm, telemetry reviewed, skin warm dry, cap refill <3 seconds, peripheral pulses +2 no JVD, Grade III systolic mumur best heard LSB and left axillary, no JVD, 1+ edema bilateral lower extremities GI: NABS x 4 quadrants, soft, nontender to palpation, no rebound, guarding or tenderness : Spontaneously voiding, no pain, no CVA tenderness, Extremities: Normal inspection, no peripheral edema or erythema, calfs nontender to palpation Psych: Normal mood and affect Skin: no rash or erythema Results & Data Results & Data ([facility]) Vital Signs (Past 12 Hours) Vital Signs Temp Pulse Pulse Resp BP BP Pulse Ox 05/14/21 11:40 72 16 174/95 H 96 05/14/21 10:29 94 05/14/21 10:20 82 24 95 05/14/21 09:57 36.9 C 88 28 H 179/100 H 92 Laboratory Results Abnormal lab results 05/14/21 05/14/21 05/14/21 Range/Units 10:38 10:38 10:38 WBC (4.8-10.8) K/uL RDW Std Deviation (36.4-46.3) fL RDW Coeff of Yanelis (11.5-14.5) % Neut # (Auto) (1.4-6.5) K/uL [place] # (Auto) (0.11-0.59) K/uL Immature Gran # (Auto) (0.00-0.02) K/uL PT 13.3 H (9.0-12.0) Seconds INR 1.3 H (0.9-1.1) APTT 32.7 H (21.0-31.0) Seconds VBG pH 7.44 H (7.36-7.41) Magnesium (1.7-2.4) mg/dl Troponin I (0-0.04) ng/ml C-Reactive Protein 14.34 H (0-0.5) mg/dl B-Natriuretic Peptide (0-100) pg/ml Urine pH (4.5-7.5) Urine Protein (Negative) Urine Ketones (Negative) Urine Nitrite (Negative) Ur Leukocyte Esterase (Negative) Urine WBC (Auto) (0-5) /hpf Urine RBC (Auto) (0-4) /hpf U Epithel Cells (Auto) (0-5) /lpf Urine Bacteria (Auto) (Negative) 05/14/21 05/14/21 05/14/21 Range/Units 10:38 Unknown Unknown WBC 12.50 H (4.8-10.8) K/uL RDW Std Deviation 51.6 H (36.4-46.3) fL RDW Coeff of Yanelis 15.5 H (11.5-14.5) % Neut # (Auto) 9.78 H (1.4-6.5) K/uL [place] # (Auto) 0.84 H (0.11-0.59) K/uL Immature Gran # (Auto) 0.06 H (0.00-0.02) K/uL PT (9.0-12.0) Seconds INR (0.9-1.1) APTT (21.0-31.0) Seconds VBG pH (7.36-7.41) Magnesium 1.6 L (1.7-2.4) mg/dl Troponin I 0.16 H* (0-0.04) ng/ml C-Reactive Protein (0-0.5) mg/dl B-Natriuretic Peptide 1470 H (0-100) pg/ml Urine pH (4.5-7.5) Urine Protein (Negative) Urine Ketones (Negative) Urine Nitrite (Negative) Ur Leukocyte Esterase (Negative) Urine WBC (Auto) (0-5) /hpf Urine RBC (Auto) (0-4) /hpf U Epithel Cells (Auto) (0-5) /lpf Urine Bacteria (Auto) (Negative) 05/14/21 Range/Units Unknown WBC (4.8-10.8) K/uL RDW Std Deviation (36.4-46.3) fL RDW Coeff of Yanelis (11.5-14.5) % Neut # (Auto) (1.4-6.5) K/uL [place] # (Auto) (0.11-0.59) K/uL Immature Gran # (Auto) (0.00-0.02) K/uL PT (9.0-12.0) Seconds INR (0.9-1.1) APTT (21.0-31.0) Seconds VBG pH (7.36-7.41) Magnesium (1.7-2.4) mg/dl Troponin I (0-0.04) ng/ml C-Reactive Protein (0-0.5) mg/dl B-Natriuretic Peptide (0-100) pg/ml Urine pH 8.0 H (4.5-7.5) Urine Protein 1+ H (Negative) Urine Ketones Trace H (Negative) Urine Nitrite Positive A (Negative) Ur Leukocyte Esterase 1+ H (Negative) Urine WBC (Auto) 5-10 H (0-5) /hpf Urine RBC (Auto) 5-10 H (0-4) /hpf U Epithel Cells (Auto) >30 H (0-5) /lpf Urine Bacteria (Auto) 4+ H (Negative) Diagnostic Findings Chest X-Ray 05/14/21 10:12 XR chest 1V portable CLINICAL HISTORY: SEPSIS. COMPARISON STUDY: 03/30/2018 TECHNIQUE: 1 view of the chest FINDINGS: Single frontal view of the chest demonstrates the cardiomediastinal silhouette to be within normal limits. Patchy interstitial and alveolar opacities are present bilaterally. The findings are most characteristic of a viral type pneumonitis. Covid 19 pneumonia should be excluded. There is no evidence for pleural effusion. There is no evidence for vascular congestion. There is no acute osseous pathology. IMPRESSION: 1. Patchy interstitial and alveolar opacities bilaterally characteristic of a viral type pneumonitis and probable early Covid 19 pneumonia. ACT 112: Negative or not required by law. Electronically signed by: Perry Brambila M.D. 05/14/2021 11:17 AM Medications Administered Home Medications ascorbic acid (vitamin C) 500 mg capsule 500 mg PO QAM 02/08/18 [History Confirmed 05/14/21] aspirin 81 mg tablet,delayed release 81 mg PO QAM 02/08/18 [History Confirmed 05/14/21] cholecalciferol (vitamin D3) 25 mcg (1,000 unit) tablet (Vitamin D3) 1,000 unit PO QAM 02/08/18 [History Confirmed 05/14/21] levalbuterol HCl 1.25 mg/3 mL solution for nebulization 1.25 mg INHALATION Q4 PRN 02/08/18 [History Confirmed 05/14/21] ohgwrtxc-atr-qfgpg acid 0.4 mg-lycopene 300 mcg-lutein 250 mcg tablet (Centrum Silver) 1 tab PO QAM 02/08/18 [History Confirmed 05/14/21] omega 8-bxh-nzn-fish oil 1,000 mg (120 mg-180 mg) capsule (Fish Oil) 1 cap PO QAM 02/08/18 [History Confirmed 05/14/21] vitamins A,C,J-hwxn-xusmlf 7,160 unit-113 mg-100 unit tablet (PreserVision AREDS) 1 tab PO BID 02/08/18 [History Confirmed 05/14/21] acetaminophen 500 mg tablet (Tylenol Extra Strength) 1,000 mg PO Q8H PRN tab 10/08/18 [History Confirmed 05/14/21] Oxygen Home #1 ea 10/19/18 [Rx Confirmed 05/14/21] albuterol sulfate 90 mcg/actuation aerosol inhaler (Ventolin HFA) See Rx Instructions .ROUTE .COMPLEX #972 gram 01/25/19 [Rx Confirmed 05/14/21] docusate sodium 100 mg capsule 100 mg PO DAILY PRN cap 05/13/19 [History Confirmed 05/14/21] Thera Cran 1 dose PO QAM 11/25/19 [History Confirmed 05/14/21] vitamin B12 1 mg-folic acid 0.8 mg tablet 1 tab PO QAM 11/25/19 [History Confirmed 05/14/21] vitamin E 1,000 unit capsule 1,000 unit PO QAM 11/25/19 [History Confirmed 05/14/21] meclizine 12.5 mg tablet 12.5 - 25 mg PO TID PRN #90 tab 11/28/19 [Rx Confirmed 05/14/21] metoprolol succinate 100 mg tablet,extended release 24 hr 100 mg PO QAM #90 tab 03/12/20 [Rx Confirmed 05/14/21] prevagen Extra strength 1 tab PO DAILY 08/12/20 [History Confirmed 05/14/21] telmisartan 80 mg tablet 80 mg PO QAM #90 tab 08/12/20 [Rx Confirmed 05/14/21] atorvastatin 20 mg tablet 20 mg PO HS #90 tab 11/03/20 [Rx Confirmed 05/14/21] furosemide 20 mg tablet (Lasix) 20 mg PO QAM PRN #270 tab 12/25/20 [Rx Confirmed 05/14/21] sertraline 100 mg tablet 100 mg PO PM #90 tab 01/05/21 [Rx Confirmed 05/14/21] doxazosin 4 mg tablet 4 mg PO BID #180 tab 02/01/21 [Rx Confirmed 05/14/21] Flutter Valve #1 ea 02/03/21 [Rx Confirmed 05/14/21] Oxygen Home #1 ea 02/03/21 [Rx Confirmed 05/14/21] ipratropium bromide 0.02 % solution for inhalation 2.5 ml INHALATION QID PRN #150 ml 02/03/21 [Rx Confirmed 05/14/21] lorazepam 0.5 mg tablet 0.5 mg PO BID PRN #180 tab 03/03/21 [Rx Confirmed 05/14/21] levothyroxine 137 mcg tablet 137 mcg PO QAM #90 tab 03/11/21 [Rx Confirmed 05/14/21] diltiazem HCl 300 mg capsule,extended release 24 hr 300 mg PO QAM #90 cap 05/03/21 [Rx Confirmed 05/14/21] prednisone 5 mg tablet 5 mg PO DAILY tab 05/10/21 [History Confirmed 05/14/21] Active Medications Furosemide (Furosemide Inj 20 Mg/2 Ml Vial) 20 mg IV ONE ONE Stop: 05/14/21 13:15 Magnesium Sulfate/Dextrose (Magnesium Sulfate / D5w) 1 gm in 100 mls @ 50 mls/hr IV Q2H JACQUES Stop: 05/14/21 16:29 Last Admin: 05/14/21 12:50 Dose: 50 mls/hr Documented by: Azithromycin 500 mg/ Dextrose 255 mls @ 125 mls/hr IV ONE ONE Stop: 05/14/21 14:52 Cefepime HCl 1,000 mg/ Syringe 11.3 mls @ 5.5 mls/min IV Q12 JACQUES; Protocol Stop: 05/19/21 20:59 Methylprednisolone 60 mg/ (Syringe) 0.96 mls @ 1.5 mls/min IV Q8 JACQUES Stop: 06/13/21 13:59 ECG Additional Comments: Sinus rhythm with marked sinus arrhythmia Left axis deviation Nonspecific ST and T wave abnormality Prolonged QT Abnormal ECG When compared with ECG of 16-AUG-2018 19:00, No significant change was found Code Status & VTE Plan Code Status CODE: DNR/DNI VTE: SCDS, Heparin sub q Supervising Physician Co-Signing Physician Notes JOEY Supervision note: I have personally seen and examined the patient and discussed and verified the deleon points of the history and physical along with the plan with JOEY Davis with the following exceptions and/or additions: This patient is an 86-year-old female who presents with shortness of breath and respiratory failure, with fevers and chills and productive cough. Requiring BiPAP in the ER for respiratory distress and hypoxia, found to have pneumonia on chest x-ray and elevated proBNP. History and ROS reviewed as above Vitals reviewed Gen: AAOx3, NAD, with BiPAP in place HEENT: Anicteric sclerae, EOMI CV: RRR no mgr nl S1S2 Pulm: Positive bibasilar crackles, expiratory wheezes bilaterally Abd: +BS soft NT ND no masses or hernias Ext: Trace edema of the legs bilaterally, 2+ DP pulses Skin: No rashes, warm/dry Neuro: Full strength throughout Labs and rads reviewed ECG reviewed 86-year-old female here with acute on chronic diastolic CHF and community- acquired pneumonia Plan outlined as above-treat with antibiotics to include cefepime as she is high risk for gram-negative pneumonia, azithromycin for atypical pneumonia Diuresis with IV Lasix and reassess in the morning Wean off BiPAP as tolerated to home 4 L nasal cannula Continue IV steroids start in the ER for COPD exacerbation PG Care Time/CCT Total # of Minutes Spent Total Time Spent with Patient: Total time spent is greater than 50% in coordination of care (as documented) at patient's floor/unit and/or counseling patient: 60 minutes critical care time - this time was spent independently reviewing her previous imaging, titrating BiPAP, and adjusting medications for hemodynamics, and continued workup and laboratory analysis Coding Level of Care Code 50024 Initial Inpt Care Lvl 3 Diagnoses Hypoxia R09.02 COPD (chronic obstructive pulmonary disease) J44.9 Asthma J45.909 Hypertension I10 Hypothyroidism E03.9 Aortic stenosis I35.0 Stage III chronic kidney disease N18.3 Renal cell carcinoma C64.9 Hypercholesterolemia E78.00 UTI (urinary tract infection) N39.0 Paroxysmal SVT (supraventricular tachycardia) I47.1
[2021-05-14] MEDS ORDERED: FUROSEMIDE INJ 20 MG/2 ML VIAL IV ONE (13:45)
[2021-05-14 15:40] LABS: Influenza A virus by PCR Negative (Negative); Influenza B virus by PCR Negative (Negative)
--- NOTE | 2021-05-14 16:30 | Electrocardiogram Report ---
Test Reason : Blood Pressure : / mmHG Vent. Rate : 090 BPM Atrial Rate : 090 BPM P-R Int : 150 ms QRS Dur : 092 ms QT Int : 404 ms P-R-T Axes : 067 -33 099 degrees QTc Int : 494 ms Sinus rhythm with 4 beat atrial run Left axis deviation Left ventricular hypertrophy with repolarization abnormality Prolonged QT Abnormal ECG When compared with ECG of 16-AUG-2018 19:00, Atrial run now present Left ventricular hypertrophy with repolarization abnormality now present Confirmed by Zain Blackburn ([id number]) on 05/14/2021 4:30:06 PM Referred By: Confirmed By:Zain Blackburn
[2021-05-14] MEDS ORDERED: FUROSEMIDE 20 MG TAB PO PRN (17:02)
[2021-05-14] MEDS ORDERED: ACETAMINOPHEN 325 MG TAB PO PRN (17:02)
[2021-05-14] MEDS ORDERED: ACETAMINOPHEN 500 MG TAB PO PRN (17:02)
[2021-05-14] MEDS ORDERED: ALBUTEROL HFA 8 GM INHALER INH PRN (17:02)
[2021-05-14] MEDS ORDERED: ONDANSETRON INJ 2 MG/ML 2 ML VIAL IV PRN (17:02)
[2021-05-14] MEDS: TELMISARTAN 40 MG TAB PO SCH (18:37)
[2021-05-14] MEDS: LEVALBUTEROL HCL 1.25 MG/3 ML NEB INH SCH ×2 (19:42→22:41)
[2021-05-14] MEDS: ATORVASTATIN 20 MG TAB PO SCH (20:39)
[2021-05-14] MEDS: SERTRALINE HCL 100 MG TABLET PO SCH (20:39)
[2021-05-14] MEDS: HEPARIN SOD 5,000 UNIT/0.5 ML VIAL SQ SCH (20:39)
[2021-05-14] MEDS ORDERED: CEFEPIME 1,000 MG in SYRINGE 0 ML IV SCH (21:00)
[2021-05-14] MEDS: DOXAZosin MESYLATE 4 MG TAB PO SCH (21:13)
[2021-05-14] MEDS: methylPREDNISolone 60 MG in SYRINGE 0 ML IV SCH (21:13)
[2021-05-14] MEDS: CEFEPIME 2,000 MG in SYRINGE 0 ML IV SCH (23:23)
[2021-05-15] MEDS: LEVALBUTEROL HCL 1.25 MG/3 ML NEB INH SCH ×6 (02:46→22:39)
[2021-05-15] MEDS: LEVOTHYROXINE SODIUM 137 MCG TABLET PO SCH (05:44)
[2021-05-15] MEDS: methylPREDNISolone 60 MG in SYRINGE 0 ML IV SCH ×3 (05:44→21:08)
[2021-05-15] MEDS: DOCUSATE SODIUM 100 MG CAP PO PRN (06:09)
[2021-05-15 07:19] LABS: Basophils # (auto) 0.01 K/uL (0-0.2); Basophils % (auto) 0.1 %; Hematocrit (blood only) 36.6 % (37-47); Hemoglobin 11.8 g/dL (12.0-16.0); Immature Granulocytes # (auto) 0.04 K/uL (0.00-0.02); Immature Granulocytes % (auto) 0.3 %; Lymphocytes # (auto) 0.58 K/uL (1.2-3.4); Lymphocytes % (auto) 4.7 %; Mean Corpuscular Hemoglobin 29.4 pg (25-34); Mean Corpuscular Hgb Conc 32.2 g/dL (32-36); Mean Platelet Volume 9.9 fL (7.4-10.4); Monocytes # (auto) 0.68 K/uL (0.11-0.59); Monocytes % (auto) 5.5 %; Neutrophils # (auto) 11.07 K/uL (1.4-6.5); Neutrophils % (auto) 89.4 %; Platelet Count 211 K/uL (130-400); RDW Coefficient of Variation 15.2 % (11.5-14.5); RDW Standard Deviation 51.5 fL (36.4-46.3); Red Blood Count 4.02 M/uL (4.2-5.4); White Blood Count 12.38 K/uL (4.8-10.8)
[2021-05-15] MEDS: TELMISARTAN 40 MG TAB PO SCH (07:20)
[2021-05-15 07:46] LABS: Troponin I 0.1 ng/ml (0-0.04)
[2021-05-15 07:50] LABS: BUN Creatinine Ratio 21.4 (10-20); Calcium 8.2 mg/dl (8.5-10.1); Creatinine Clr Calc Pharmacy 30.2 ml/min; Est GFR (African American) 48.5 ml/min; Est GFR (Non-African American) 41.9 ml/min; Magnesium 2.2 mg/dl (1.7-2.4); Potassium 3.6 mmol/L (3.5-5.1)
[2021-05-15] MEDS: METOPROLOL SUCC 50MG EXT REL TAB PO SCH (08:48)
[2021-05-15] MEDS: ASPIRIN 81 MG ECTAB PO SCH (08:48)
[2021-05-15] MEDS: AZITHROMYCIN 250 MG in DEXTROSE 5% 250 ML IV SCH (08:49)
[2021-05-15] MEDS: HEPARIN SOD 5,000 UNIT/0.5 ML VIAL SQ SCH ×2 (08:49→20:00)
[2021-05-15] MEDS: DOXAZosin MESYLATE 4 MG TAB PO SCH ×2 (10:35→19:59)
[2021-05-15] MEDS: CEFEPIME 2,000 MG in SYRINGE 0 ML IV SCH (11:58)
[2021-05-15 14:02] LABS: Estimated Average Glucose 114 mg/dl; Hemoglobin A1C 5.6 % (4.5-5.6)
--- NOTE | 2021-05-15 16:02 | Hospitalist Progress Note ---
Date of Service May 15, 2021 Assessment & Plan (1) Hypoxia: Plan: COPD exacerbation, can't rule out underlying pneumonia based on overall presentation -- continue zithromax, change cefepime to ceftriaxone (2) UTI (urinary tract infection): Plan: to clarify - patient has ZERO uti sx. asymptomatic bacteriuria. this is largely an academic distinction since she needs to be on abx coverage for #1 above, but to clarify (and for pt who was very concerned, having had several symptomatic UTIs, that she could somehow now be having them without noticing) (3) COPD (chronic obstructive pulmonary disease): Plan: no maintenance inhalers. dtr also notes she has nebs at home but doesn't really think she takes them add LAMA/LABA/ICS (4) Asthma: Plan: As above (5) Hypertension: Plan: BP reasonable, follow, continue home meds (6) Aortic stenosis: Plan: compensated HFpEF. was given IV lasix yesterday additionally - ?maybe had slight decompensation then - but really overall and now appears compensated ECHO in 03/27- EF 65-70%- moderate (7) Hypothyroidism: Plan: Continue Synthroid 137mcg tabs (8) Stage III chronic kidney disease: Plan: Secondary to nephrectomy and history of renal cell carcinoma - renally dose medications - avoid further nephrotoxic medications as able, follow Cr (9) Renal cell carcinoma: Plan: As above (10) Hypercholesterolemia: Plan: Continue statin (11) Paroxysmal SVT (supraventricular tachycardia): Plan: Continue metoprolol and diltiazem Plan: improving from a lung standpoint - probably can start to wean steroids 05/16; from a weakness standpoint - PT/OT --> she would prefer to avoid a facility if possible (to that end encouraged activity as much as possible while here) - dtr expresses concerns about pt being home alone. pt loosely expressed same concerns noting that if able to go home, she would probably prefer to wait until dtr who's coming up from [place] arrives (which is likley to be in ~2 days or so anyway) Admission and Anticipated Discharge Date Admission Date: May 14, 2021 Subjective breathign feeling better feeling very weak and lightheaded some when sitting up, but breathing doing better dtr concerned about how she's doing at home no dysuria, urgency, frequency - and has had several symptomatic UTIs in the past updated dtr who was pulm RN w Dr Kaplan - she expresses big concern on pt caring for herself at home, not eating, missing medicines, no inhalers/nebs Review of Systems Review of Systems: All systems reviewed & are unremarkable except as noted in HPI & below Physical Exam Physical Exam: vitals noted nad heent nc at mmm lungs overall surprisingly clear faint scattered rhonchi no wheeze good effort skin no rashes no pallor or icterus neuro no focal deficits Results & Data Results & Data ([facility]) Vital Signs (Past 12 Hours) Vital Signs Temp Pulse Resp BP Pulse Ox 05/15/21 14:50 18 95 05/15/21 11:00 82 18 95 05/15/21 07:22 97.7 F 90 18 145/77 H 94 05/15/21 07:12 77 18 95 PG Care Time/CCT Total # of Minutes Spent Total Time Spent with Patient: Total time spent is greater than 50% in coordination of care (as documented) at patient's floor/unit and/or counseling patient: Coding Level of Care Code 16753 Subseq Hosp Care Lvl 3 Diagnoses Hypoxia R09.02 UTI (urinary tract infection) N39.0 COPD (chronic obstructive pulmonary disease) J44.9 Asthma J45.909 Hypertension I10 Hypothyroidism E03.9 Aortic stenosis I35.0 Stage III chronic kidney disease N18.3 Renal cell carcinoma C64.9 Hypercholesterolemia E78.00 Paroxysmal SVT (supraventricular tachycardia) I47.1
[2021-05-15] MEDS ORDERED: cefTRIAXone SODIUM 1,000 MG in DEXTROSE 5% 50 ML IV SCH (16:15)
[2021-05-15] MEDS: INSULIN ASPART PER UNIT SC SCH ×2 (17:32→21:21)
[2021-05-15] MEDS: cefTRIAXone SODIUM 2,000 MG in DEXTROSE 5% 50 ML IV SCH (17:36)
[2021-05-15] MEDS: FLUTICASONE/VILANTEROL 100/25MCG 14 PUFFS/INHALER INH SCH (19:58)
[2021-05-15] MEDS: ATORVASTATIN 20 MG TAB PO SCH (19:59)
[2021-05-15] MEDS: SERTRALINE HCL 100 MG TABLET PO SCH (19:59)
[2021-05-16] MEDS: LEVALBUTEROL HCL 1.25 MG/3 ML NEB INH SCH ×3 (03:58→19:36)
[2021-05-16 05:52] LABS: Hematocrit (blood only) 36.6 % (37-47); Hemoglobin 11.9 g/dL (12.0-16.0); Immature Granulocytes # (auto) 0.09 K/uL (0.00-0.02); Immature Granulocytes % (auto) 0.5 %; Lymphocytes % (auto) 3.8 %; Mean Corpuscular Hemoglobin 29.9 pg (25-34); Mean Corpuscular Hgb Conc 32.5 g/dL (32-36); Mean Platelet Volume 9.7 fL (7.4-10.4); Monocytes # (auto) 0.77 K/uL (0.11-0.59); Monocytes % (auto) 4.1 %; Neutrophils % (auto) 91.6 %; Platelet Count 250 K/uL (130-400); RDW Coefficient of Variation 15.2 % (11.5-14.5); RDW Standard Deviation 51.4 fL (36.4-46.3); Red Blood Count 3.98 M/uL (4.2-5.4); White Blood Count 18.66 K/uL (4.8-10.8)
[2021-05-16] MEDS: LEVOTHYROXINE SODIUM 137 MCG TABLET PO SCH (05:53)
[2021-05-16] MEDS: methylPREDNISolone 60 MG in SYRINGE 0 ML IV SCH ×3 (05:54→21:06)
[2021-05-16 06:13] LABS: Calcium 9.4 mg/dl (8.5-10.1); Est GFR (African American) 54.1 ml/min; Est GFR (Non-African American) 46.6 ml/min; Potassium 3.9 mmol/L (3.5-5.1)
[2021-05-16] MEDS: DOCUSATE SODIUM 100 MG CAP PO PRN (06:36)
[2021-05-16] MEDS: TELMISARTAN 40 MG TAB PO SCH (07:46)
[2021-05-16] MEDS: INSULIN ASPART PER UNIT SC SCH ×4 (08:25→22:21)
[2021-05-16] MEDS: ASPIRIN 81 MG ECTAB PO SCH (08:43)
[2021-05-16] MEDS: AZITHROMYCIN 250 MG in DEXTROSE 5% 250 ML IV SCH (08:43)
[2021-05-16] MEDS: DOXAZosin MESYLATE 4 MG TAB PO SCH ×2 (08:44→21:05)
[2021-05-16] MEDS: HEPARIN SOD 5,000 UNIT/0.5 ML VIAL SQ SCH ×2 (08:44→21:06)
[2021-05-16] MEDS: METOPROLOL SUCC 50MG EXT REL TAB PO SCH (08:44)
[2021-05-16] MEDS: UMECLIDINIUM BROMIDE 62.5MCG/BLISTER 7 PUFFS/INHALER INH SCH (08:44)
--- NOTE | 2021-05-16 09:14 | Hospitalist Progress Note ---
Date of Service May 16, 2021 Assessment & Plan (1) Hypoxia: Plan: Acute on chronic respiratory failure with hypoxia, history of copd doesnt help hypoxia but CXR looks to be multifocal graound glass changes, can't rule out underlying pneumonia based on overall presentation -- continue zithromax plus ceftriaxone. clinically greatly improved back on home level of oxygen 4 L (2) UTI (urinary tract infection): Plan: to clarify - asymptomatic but barajas sensitive ecoli maybe eradicated by Ceftriaxone (3) COPD (chronic obstructive pulmonary disease): Plan: no maintenance inhalers. dtr also notes she has nebs at home but doesn't really think she takes them add LAMA/LABA/ICS (4) Asthma: Plan: As above (5) Hypertension: Plan: BP reasonable, follow, continue home meds (6) Aortic stenosis: Plan: compensated HFpEF. was given IV lasix yesterday additionally - ?maybe had slight decompensation then - but really overall and now appears compensated ECHO in 03/27- EF 65-70%- moderate (7) Hypothyroidism: Plan: Continue Synthroid 137mcg tabs (8) Stage III chronic kidney disease: Plan: Secondary to nephrectomy and history of renal cell carcinoma - renally dose medications - avoid further nephrotoxic medications as able, follow Cr (9) Renal cell carcinoma: Plan: As above (10) Hypercholesterolemia: Plan: Continue statin (11) Paroxysmal SVT (supraventricular tachycardia): Plan: Continue metoprolol and diltiazem Plan: improving from a lung standpoint - probably can start to wean steroids 05/16; from a weakness standpoint - PT/OT --> she would prefer to avoid a facility if possible (to that end encouraged activity as much as possible while here) - dtr expresses concerns about pt being home alone. pt loosely expressed same concerns noting that if able to go home, she would probably prefer to wait until dtr who's coming up from [place] arrives (which is likley to be monday or monday) Admission and Anticipated Discharge Date Admission Date: May 14, 2021 Subjective Has no complaints or problems she is back to her normal oxygen requirement she does not feel short of breath she does have a nonproductive cough she is noted home to the care of her to her daughter arrived from [place] on May 18 Review of Systems Review of Systems: Moderate distress and fatigue no headache, no visual changes no speech or swallowing issues no chest pain, pressure or palpitations Patient feels she is at her baseline shortness of breath, nonproductive cough no wheezes no abdominal pain, nausea or vomiting, no diarrhea no dysuria, hematuria or frequency no focal joint pain or swelling no back pain, CVA tenderness or radicular pain no bruising, bleeding or rashes no focal signs of weakness or numbness or altered sensation no complaints of anxiety or depression.. Physical Exam Physical Exam: The patient appeared well nourished and normally developed. Vital signs as documented. Head exam is normocephalic atraumatic Neck is without JVD, thyromegaly, or carotid bruits. Lungs are poor air movement but clear Cardiac exam, Rhythm is regular.. No murmurs, rubs or gallops. Abdominal exam reveals normal bowel sounds, soft non tender, no masses Extremities are nonedematous and both pedal pulses are present Neurologic exam is alert and oriented, no focal loss of strength or sensation Skin is without bruises or rashes Psychologically is without concerns for anxiety or depression.. Results & Data Results & Data ([facility]) Vital Signs (Past 12 Hours) Vital Signs Temp Pulse Resp BP Pulse Ox 05/16/21 07:39 98.1 F 89 18 183/93 H 94 05/16/21 07:14 81 18 94 05/15/21 22:40 80 18 93 05/15/21 22:33 97.7 F 84 17 190/93 H 96 PG Care Time/CCT Total # of Minutes Spent Total Time Spent with Patient: Total time spent is greater than 50% in coordination of care (as documented) at patient's floor/unit and/or counseling patient: Coding Level of Care Code 40032 Subseq Hosp Care Lvl 2 Diagnoses Hypoxia R09.02 UTI (urinary tract infection) N39.0 COPD (chronic obstructive pulmonary disease) J44.9 Asthma J45.909 Hypertension I10 Aortic stenosis I35.0 Hypothyroidism E03.9 Stage III chronic kidney disease N18.3 Renal cell carcinoma C64.9 Hypercholesterolemia E78.00 Paroxysmal SVT (supraventricular tachycardia) I47.1
[2021-05-16] MEDS: cefTRIAXone SODIUM 2,000 MG in DEXTROSE 5% 50 ML IV SCH (17:18)
[2021-05-16] MEDS: FLUTICASONE/VILANTEROL 100/25MCG 14 PUFFS/INHALER INH SCH (21:05)
[2021-05-16] MEDS: SERTRALINE HCL 100 MG TABLET PO SCH (21:05)
[2021-05-16] MEDS: ATORVASTATIN 20 MG TAB PO SCH (21:06)
[2021-05-17] MEDS: LEVOTHYROXINE SODIUM 137 MCG TABLET PO SCH (05:55)
[2021-05-17] MEDS: methylPREDNISolone 60 MG in SYRINGE 0 ML IV SCH ×3 (05:55→21:16)
[2021-05-17] MEDS: LEVALBUTEROL HCL 1.25 MG/3 ML NEB INH SCH ×2 (07:06→19:10)
[2021-05-17] MEDS: DOXAZosin MESYLATE 4 MG TAB PO SCH ×2 (08:41→20:39)
[2021-05-17] MEDS: METOPROLOL SUCC 50MG EXT REL TAB PO SCH (08:42)
[2021-05-17] MEDS: HEPARIN SOD 5,000 UNIT/0.5 ML VIAL SQ SCH ×2 (08:42→20:40)
[2021-05-17] MEDS: TELMISARTAN 40 MG TAB PO SCH (08:42)
[2021-05-17] MEDS: ASPIRIN 81 MG ECTAB PO SCH (08:42)
[2021-05-17] MEDS: UMECLIDINIUM BROMIDE 62.5MCG/BLISTER 7 PUFFS/INHALER INH SCH (08:43)
[2021-05-17] MEDS: INSULIN ASPART PER UNIT SC SCH ×3 (08:46→17:21)
[2021-05-17] MEDS: AZITHROMYCIN 250 MG in DEXTROSE 5% 250 ML IV SCH (09:54)
--- NOTE | 2021-05-17 11:21 | Electrocardiogram Report ---
Test Reason : Blood Pressure : / mmHG Vent. Rate : 075 BPM Atrial Rate : 075 BPM P-R Int : 146 ms QRS Dur : 092 ms QT Int : 408 ms P-R-T Axes : 069 -22 095 degrees QTc Int : 455 ms Normal sinus rhythm Possible Left atrial enlargement Nonspecific ST and T wave abnormality Abnormal ECG When compared with ECG of 14-MAY-2021 10:27, Brief atrial run no longer present Confirmed by Ventura Monroe ([id number]) on 05/17/2021 8:56:25 PM Referred By: REFERRED SELF Confirmed By:Ventura Monroe
--- NOTE | 2021-05-17 15:41 | Hospitalist Progress Note ---
Date of Service May 17, 2021 Assessment & Plan (1) Hypoxia: Plan: Acute on chronic respiratory failure with hypoxia, history of copd doesnt help hypoxia but CXR looks to be multifocal graound glass changes, can't rule out underlying pneumonia based on overall presentation -- continue zithromax plus ceftriaxone. clinically greatly improved back on home level of oxygen 4 L (2) UTI (urinary tract infection): Plan: to clarify - asymptomatic but barajas sensitive ecoli maybe eradicated by Ceftriaxone (3) COPD (chronic obstructive pulmonary disease): Plan: no maintenance inhalers. dtr also notes she has nebs at home but doesn't really think she takes them add LAMA/LABA/ICS (4) Asthma: Plan: As above (5) Hypertension: Plan: BP reasonable, follow, continue home meds (6) Aortic stenosis: Plan: compensated HFpEF. was given IV lasix yesterday additionally - ?maybe had slight decompensation then - but really overall and now appears compensated ECHO in 03/27- EF 65-70%- moderate (7) Hypothyroidism: Plan: Continue Synthroid 137mcg tabs (8) Stage III chronic kidney disease: Plan: Secondary to nephrectomy and history of renal cell carcinoma - renally dose medications - avoid further nephrotoxic medications as able, follow Cr (9) Renal cell carcinoma: Plan: As above (10) Hypercholesterolemia: Plan: Continue statin (11) Paroxysmal SVT (supraventricular tachycardia): Plan: Continue metoprolol and diltiazem Plan: improving from a lung standpoint - probably can start to wean steroids 05/16; from a weakness standpoint - PT/OT --> she would prefer to avoid a facility if possible (to that end encouraged activity as much as possible while here) - dtr expresses concerns about pt being home alone. pt loosely expressed same concerns noting that if able to go home, she would probably prefer to wait until dtr who's coming up from [place] arrives (which is likley to be monday or monday) Admission and Anticipated Discharge Date Admission Date: May 14, 2021 Subjective Has no complaints or problems she is back to her normal oxygen requirement she does not feel short of breath she does have a nonproductive cough she is noted home to the care of her to her daughter arrived from [place] on May 18 Review of Systems Review of Systems: Moderate distress and fatigue no headache, no visual changes no speech or swallowing issues no chest pain, pressure or palpitations Patient feels she is at her baseline shortness of breath, nonproductive cough no wheezes no abdominal pain, nausea or vomiting, no diarrhea no dysuria, hematuria or frequency no focal joint pain or swelling no back pain, CVA tenderness or radicular pain no bruising, bleeding or rashes no focal signs of weakness or numbness or altered sensation no complaints of anxiety or depression.. Physical Exam Physical Exam: The patient appeared well nourished and normally developed. Vital signs as documented. Head exam is normocephalic atraumatic Neck is without JVD, thyromegaly, or carotid bruits. Lungs are poor air movement but clear Cardiac exam, Rhythm is regular.. No murmurs, rubs or gallops. Abdominal exam reveals normal bowel sounds, soft non tender, no masses Extremities are nonedematous and both pedal pulses are present Neurologic exam is alert and oriented, no focal loss of strength or sensation Skin is without bruises or rashes Psychologically is without concerns for anxiety or depression.. Results & Data Results & Data ([facility]) Vital Signs (Past 12 Hours) Vital Signs Temp Pulse Resp BP Pulse Ox 05/17/21 15:10 97.9 F 70 18 181/85 H 96 05/17/21 07:20 97.9 F 126 H 18 105/63 95 05/17/21 07:07 80 20 94 PG Care Time/CCT Total # of Minutes Spent Total Time Spent with Patient: Total time spent is greater than 50% in coordination of care (as documented) at patient's floor/unit and/or counseling patient: Coding Level of Care Code 47768 Subseq Hosp Care Lvl 1 Diagnoses Hypoxia R09.02 UTI (urinary tract infection) N39.0 COPD (chronic obstructive pulmonary disease) J44.9 Asthma J45.909 Hypertension I10 Aortic stenosis I35.0 Hypothyroidism E03.9 Stage III chronic kidney disease N18.3 Renal cell carcinoma C64.9 Hypercholesterolemia E78.00 Paroxysmal SVT (supraventricular tachycardia) I47.1
[2021-05-17] MEDS: cefTRIAXone SODIUM 2,000 MG in DEXTROSE 5% 50 ML IV SCH (17:21)
[2021-05-17] MEDS: ATORVASTATIN 20 MG TAB PO SCH (20:39)
[2021-05-17] MEDS: SERTRALINE HCL 100 MG TABLET PO SCH (20:39)
[2021-05-17] MEDS: FLUTICASONE/VILANTEROL 100/25MCG 14 PUFFS/INHALER INH SCH (20:40)
[2021-05-18] MEDS: INSULIN ASPART PER UNIT SC SCH ×3 (00:09→12:16)
[2021-05-18] MEDS: LEVOTHYROXINE SODIUM 137 MCG TABLET PO SCH (06:11)
[2021-05-18] MEDS: methylPREDNISolone 60 MG in SYRINGE 0 ML IV SCH (06:11)
[2021-05-18] MEDS: LEVALBUTEROL HCL 1.25 MG/3 ML NEB INH SCH (06:58)
[2021-05-18] MEDS ORDERED: amLODIPine BESYLATE 5 MG TAB PO ONE (08:10)
[2021-05-18] MEDS: TELMISARTAN 40 MG TAB PO SCH (08:39)
[2021-05-18] MEDS: ASPIRIN 81 MG ECTAB PO SCH (08:39)
[2021-05-18] MEDS: METOPROLOL SUCC 50MG EXT REL TAB PO SCH (08:39)
[2021-05-18] MEDS: DOXAZosin MESYLATE 4 MG TAB PO SCH (08:39)
[2021-05-18] MEDS: UMECLIDINIUM BROMIDE 62.5MCG/BLISTER 7 PUFFS/INHALER INH SCH (08:40)
[2021-05-18] MEDS: HEPARIN SOD 5,000 UNIT/0.5 ML VIAL SQ SCH (08:41)
[2021-05-18] MEDS: AZITHROMYCIN 250 MG in DEXTROSE 5% 250 ML IV SCH (08:45)
[2021-05-18] MEDS ORDERED: predniSONE 20 MG TAB PO SCH (09:00)
--- NOTE | 2021-05-18 15:08 | Discharge Summary ---
Date of Service May 18, 2021 Admission HPI Per Admitting Provider [id number] YOF with past medical history of: COPD on home oxygen, COVID 19 fall 21, urinary incontinence, vaginal prolapse with pessary, HTN, rotator cuff injury, bilateral knee replacement, renal cell carcinoma (nephrectomy), HLD, PAF, , CVD. Patient comes to the hospital today for fall at home, upon EMS arriving the noticed the patient to be hypoxic in the 80s and was brought to the EMD. The patient was placed on BiPAP given 30mg IV solumedrol, routine blood work performed to include Troponin I, UA, CXR, ECG. She was also started on Cefepime, VBG obtained and hospitalist service was notified for admission. Frances ent endorses that over the past 2 days she has been having chills and sweating at night, with worsening shortness of breath. Her daughter accompanies her at the bedside and stated she wanted her to come to the hospital yesterday but patient refused. She noted that her mom has been having increased cough, weakness, shortness of breath with increase in sputum production. She overall states that she feels better with the BiPAP on 12/08 an did have hypoxia to 84% while off of this. Patient CXR continues to show patchy bilateral opacities that appears unchanged from her CT scan performed with her COVID. Overall patient will be admitted for hypoxia that is multifactorial at this time to include COPD exacerbation, possible pneumonia, UTI. Will give her lasix 20mg IV now for crackles throughout and elevated BNP. Her inflammatory markers remain elevated, influenza and sputum culture are pending. Continue to trend Troponin I. Principal Diagnosis copd exacerbation acute on chronic respiratory failure Urinary tract infection Discharge Exam The patient appeared to be back in her baseline Vital signs as documented. Lungs are diminished air sounds throughout but breathing appears unlabored Cardiac exam, Rhythm is regular.. No murmurs, rubs or gallops. Abdominal exam reveals normal bowel sounds, soft non tender, no masses Extremities are nonedematous and both pedal pulses are normal. Neurologic exam is alert and oriented, no focal loss of strength or sensation Skin is without bruises or rashes Psychologically is without concerns for anxiety or depression. Discharge Data Allergies Allergy/AdvReac Type Severity Reaction Status Date / Time bee venom protein (honey bee) Allergy Intermediate HIVES Verified 05/14/21 11:49 oxycodone Allergy Unknown Unknown Verified 05/14/21 11:49 Sulfa (Sulfonamide Allergy Unknown MOUTH Verified 05/14/21 11:49 Antibiotics) SWELLED/HIVES TO SULFA DRUGS gabapentin Allergy Rash Verified 05/14/21 11:49 nitrofurantoin AdvReac Severe CAUSES Verified 05/14/21 11:49 HEPATITUS hydromorphone AdvReac Intermediate HALLUCINATI Verified 05/14/21 11:49 ONS Consultations 05/14/21 11:32 ED Decision to Admit Stat Hospital Course (1) Hypoxia: Acute on chronic respiratory failure with hypoxia, history of copd doesnt help hypoxia but CXR looks to be multifocal graound glass changes, can't rule out underlying pneumonia based on overall presentation -- continue zithromax plus ceftriaxone. clinically greatly improved back on home level of oxygen 4 L (2) UTI (urinary tract infection): to clarify - asymptomatic but barajas sensitive ecoli maybe eradicated by Ceftriaxone (3) COPD (chronic obstructive pulmonary disease): no maintenance inhalers. dtr also notes she has nebs at home but doesn't really think she takes them We will go home on Umeclidinium inhaler (4) Asthma: As above (5) Hypertension: BP reasonable, follow, continue home meds (6) Aortic stenosis: compensated HFpEF. now appears compensated ECHO in 03/27- EF 65-70%- moderate (7) Hypothyroidism: Continue Synthroid 137mcg tabs (8) Stage III chronic kidney disease: Secondary to nephrectomy and history of renal cell carcinoma - renally dose medications - avoid further nephrotoxic medications as able, follow Cr (9) Renal cell carcinoma: (10) Hypercholesterolemia: Continue statin (11) Paroxysmal SVT (supraventricular tachycardia): Continue metoprolol and diltiazem Discharge on scheduled nebs Umeclidinium steroid taper plus her typical nasal cannula oxygen at 3 to 4 L Total Time Total Time Spent Total Time Spent (In Minutes): It required greater than 30 minutes to prepare this patient for discharge Discharge Plan Discharge Items Patient Disposition: Home - Self-Care Reason For Visit: COPD, PNA, UTI Discharge Diagnosis: copd flare Activity: Per Instructions section Activity Comment: Slowly increase activity Non-emergency contact: Primary Care Provider Call non-emergency contact if: your symptoms worsen and you have a fever Follow-up/Referrals: Coleman,Christopher E., MD [Primary Care Provider] - Diet: Regular Addtl Attending Provider Instructions: please be sure to follow up with your family doctor in one week or less you have completed your antibiotics here you will be on a tapering dose of steroids for the next 16 days then return to your prednisone 5 mg a day you have been started on a new blood pressure medicine substituting for your diltiazem be sure to discuss its affects with your family doctor Pending Studies at Discharge: No Stand-Alone Forms: My [facility] [employer], Smoking Cessation Medications and DC Order Prescriptions: New Incruse Ellipta 62.5 mcg/actuation Blister With Device 1 puff inhalation DAILY Qty: 1 RF: 3 prednisone 10 mg tablet 10 mg PO UD Qty: 40 RF: 0 amlodipine 5 mg tablet 5 mg PO DAILY Qty: 30 RF: 2 (DME) Oxygen Home Liters Per Minute See Rx Instructions .Route Qty: 4 RF: 0 Continued meclizine 12.5 mg tablet 12.5 - 25 mg PO TID PRN (Reason: dizziness) Qty: 90 RF: 0 metoprolol succinate 100 mg tablet extended release 24 hr 100 mg PO QAM Qty: 90 RF: 3 telmisartan 80 mg tablet 80 mg PO QAM Qty: 90 RF: 3 atorvastatin 20 mg tablet 20 mg PO HS Qty: 90 RF: 3 furosemide [Lasix] 20 mg tablet 20 mg PO QAM PRN (Reason: weight gain) Qty: 270 RF: 1 sertraline 100 mg tablet 100 mg PO PM Qty: 90 RF: 3 doxazosin 4 mg tablet 4 mg PO BID Qty: 180 RF: 3 lorazepam 0.5 mg tablet 0.5 mg PO BID PRN (Reason: anxiety) Qty: 180 RF: 0 levothyroxine 137 mcg tablet 137 mcg PO QAM Qty: 90 RF: 3 acetaminophen [Tylenol Extra Strength] 500 mg tablet 1,000 mg PO Q8H PRN (Reason: pain) RF: 0 (DME) Oxygen Home Liters Per Minute See Dose Instructions .ROUTE .MEDSUPPLY Qty: 1 RF: 0 prevagen Extra strength 1 tab PO DAILY RF: 0 prednisone 5 mg tablet 5 mg PO DAILY RF: 0 (DME) Oxygen Home Liters Per Minute See Rx Instructions .MEDSUPPLY Qty: 1 RF: 0 (DME) Flutter Valve Device See Rx Instructions .ROUTE .MEDSUPPLY Qty: 1 RF: 0 cholecalciferol (vitamin D3) [Vitamin D3] 1,000 unit Tablet 1,000 unit PO QAM RF: 0 PreserVision AREDS [id number] Tablet 1 tab PO BID RF: 0 docusate sodium 100 mg capsule 100 mg PO DAILY PRN (Reason: Constipation) RF: 0 vitamin E 1,000 unit Capsule 1,000 unit PO QAM RF: 0 vitamin N34-cmamr acid 1-0.8 mg Tablet 1 tab PO QAM RF: 0 Thera Cran 1 dose PO QAM RF: 0 aspirin 81 mg Tablet,Delayed Release (Dr/Ec) 81 mg PO QAM RF: 0 Centrum Silver 0.4-300-250 mg-mcg-mcg Tablet 1 tab PO QAM RF: 0 omega [id number] oil [Fish Oil] 1,000 mg (120 mg-180 mg) Capsule 1 cap PO QAM RF: 0 ascorbic acid (vitamin C) 500 mg Capsule 500 mg PO QAM RF: 0 albuterol sulfate [Ventolin HFA] 90 mcg/actuation HFA aerosol inhaler See Rx Instructions .ROUTE .COMPLEX Qty: 972 RF: 1 ipratropium bromide 0.02 % solution 2.5 ml inhalation QID PRN (Reason: shortness of breath or wheezing) Qty: 150 RF: 5 levalbuterol HCl 1.25 mg/3 mL Solution For Nebulization 1.25 mg INHALATION Q4 PRN (Reason: Shortness Of Breath) Qty: 90 RF: 5 Discontinued diltiazem HCl 300 mg capsule,extended release 24hr 300 mg PO QAM Qty: 90 RF: 3 Discharge Orders: Discharge Order (Routine); Ordered 05/18/21 Ordered By: Gage Fraga Admission Data Admit Date/Time: 05/14/21 14:44 Attending Provider: Gage Fraga Admit Provider: Marta Kruse Primary Care Provider: Amador Coleman Other Providers: Marta Kruse Other Interventions: Discharge Summary Assessment (RN) Last Done: 05/18/21 13:34 Coding Level of Care Code D/C DAY MANAGEMENT >30 MINS Diagnoses Hypoxia R09.02 UTI (urinary tract infection) N39.0 COPD (chronic obstructive pulmonary disease) J44.9 Asthma J45.909 Hypertension I10 Aortic stenosis I35.0 Hypothyroidism E03.9 Stage III chronic kidney disease N18.3 Renal cell carcinoma C64.9 Hypercholesterolemia E78.00 Paroxysmal SVT (supraventricular tachycardia) I47.1
== END 2021-05-18 15:02 | disposition home or self-care (01) | DRG 190 ==
LOC: ED 09:57 → SUATTDRO 14:44 → 3W 14:44

== ENCOUNTER 2021-06-08 08:45 | Inpatient (IN) ==
[2021-06-08 09:11] LABS: Basophils # (auto) 0.02 K/uL (0-0.2); Basophils % (auto) 0.2 %; Eosinophils # (auto) 0.14 K/uL (0-0.5); Eosinophils % (auto) 1.5 %; Hematocrit (blood only) 35.1 % (37-47); Immature Granulocytes # (auto) 0.06 K/uL (0.00-0.02); Immature Granulocytes % (auto) 0.6 %; Lymphocytes # (auto) 0.68 K/uL (1.2-3.4); Lymphocytes % (auto) 7.1 %; Mean Corpuscular Hemoglobin 28.4 pg (25-34); Mean Corpuscular Hgb Conc 31.3 g/dL (32-36); Mean Corpuscular Volume 90.7 fL (80-100); Mean Platelet Volume 9.4 fL (7.4-10.4); Monocytes # (auto) 0.73 K/uL (0.11-0.59); Monocytes % (auto) 7.6 %; Neutrophils # (auto) 7.95 K/uL (1.4-6.5); Platelet Count 258 K/uL (130-400); RDW Coefficient of Variation 16.4 % (11.5-14.5); RDW Standard Deviation 53.9 fL (36.4-46.3); Red Blood Count 3.87 M/uL (4.2-5.4); White Blood Count 9.58 K/uL (4.8-10.8)
[2021-06-08 09:38] LABS: Troponin I 0.43 ng/ml (0-0.04)
--- NOTE | 2021-06-08 09:41 | Emergency Department Note ---
History of Present Illness General Chief complaint: Shortness of Breath/Dyspnea Stated complaint: SOB Time Seen by Provider: 06/08/21 08:47 Source: patient Mode of arrival: EMS Limitations: no limitations History of Present Illness Provider complaint: Shortness of breath Onset (ago): unknown Associated symptoms: + denies other symptoms Treatments prior to arrival: other This is an 86-year-old female who presents via EMS due to complaints of shortness of breath. Per EMS, patient's daughter came to check on her as she lives alone and found patient laying in her bed however her oxygen tank and tubing was around the corner in the kitchen. Patient does typically wear 2 L chronically via nasal cannula although patient states she does not know why. On EMS arrival patient was 68%, and was transitioned to a nonrebreather and improved. They deny the patient appeared to be in any distress or have any increased work of breathing. Patient denies any sense of feeling short of breath. She denies chest pain, abdominal pain, nausea or vomiting. Patient states she was slightly lightheaded this morning but denies any loss of consciousness. Patient denies any recent nasal congestion, rhinorrhea, sore throat, fevers or chills. She states she does have a mild nonproductive cough. Patient's medication list does include Lasix as needed. Pt seen during a time of high acuity and national emergency pandemic while wearing PPE. Home Medications Medication Instructions Recorded Confirmed Type ascorbic acid (vitamin C) 500 mg 500 mg PO QAM 02/08/18 06/08/21 History capsule aspirin 81 mg tablet,delayed 81 mg PO QAM 02/08/18 06/08/21 History release cholecalciferol (vitamin D3) 25 1,000 unit PO QAM 02/08/18 06/08/21 History mcg (1,000 unit) tablet (Vitamin D3) vlarbxdw-bjt-rzdbg acid 0.4 1 tab PO QAM 02/08/18 06/08/21 History mg-lycopene 300 mcg-lutein 250 mcg tablet (Centrum Silver) omega 2-dmh-btw-fish oil 1,000 mg 1 cap PO QAM 02/08/18 06/08/21 History (120 mg-180 mg) capsule (Fish Oil) vitamins A,C,R-tfjs-aaefry 7,160 1 tab PO BID 02/08/18 06/08/21 History unit-113 mg-100 unit tablet (PreserVision AREDS) Oxygen Home #1 ea 10/19/18 05/28/21 Rx docusate sodium 100 mg capsule 300 mg PO HS cap 05/13/19 06/08/21 History Thera Cran 1 dose PO QAM 11/25/19 06/08/21 History vitamin E 1,000 unit capsule 1,000 unit PO QAM 11/25/19 06/08/21 History metoprolol succinate 100 mg 100 mg PO QAM #90 tab 03/12/20 06/08/21 Rx tablet,extended release 24 hr prevagen Extra strength 1 tab PO QAM 08/12/20 06/08/21 History telmisartan 80 mg tablet 80 mg PO QAM #90 tab 08/12/20 06/08/21 Rx atorvastatin 20 mg tablet 20 mg PO HS #90 tab 11/03/20 06/08/21 Rx furosemide 20 mg tablet (Lasix) 20 mg PO QAM PRN #270 tab 12/25/20 06/08/21 Rx sertraline 100 mg tablet 100 mg PO PM #90 tab 01/05/21 06/08/21 Rx Flutter Valve #1 ea 02/03/21 05/28/21 Rx Oxygen Home #1 ea 02/03/21 05/28/21 Rx lorazepam 0.5 mg tablet 0.5 mg PO BID PRN #180 tab 03/03/21 06/08/21 Rx Oxygen Home #4 l 05/18/21 05/28/21 Rx levalbuterol HCl 1.25 mg/3 mL 1.25 mg INHALATION Q4 PRN #90 ml 05/18/21 06/08/21 Rx solution for nebulization umeclidinium 62.5 mcg/actuation 1 puff INHALATION DAILY #1 inh 05/18/21 06/08/21 Rx blister powder for inhalation (Incruse Ellipta) albuterol sulfate 90 mcg/actuation 2 inh INHALATION Q4H PRN 06/08/21 06/08/21 History aerosol inhaler (Ventolin HFA) amlodipine 5 mg tablet 5 mg PO QAM 06/08/21 06/08/21 History cyanocobalamin (vitamin B-12) 0 mcg PO QAM 06/08/21 06/08/21 History 1,000 mcg tablet (Vitamin B-12) doxazosin 4 mg tablet (Cardura) 4 mg PO BID 06/08/21 06/08/21 History levothyroxine 137 mcg tablet 137 mcg PO DAILYBB 06/08/21 06/08/21 History prednisone 5 mg tablet 5 mg PO BID 06/08/21 06/08/21 History Allergies Allergy/AdvReac Type Severity Reaction Status Date / Time bee venom protein (honey bee) Allergy Intermediate HIVES Verified 06/08/21 09:44 oxycodone Allergy Unknown Unknown Verified 06/08/21 09:44 Sulfa (Sulfonamide Allergy Unknown MOUTH Verified 06/08/21 09:44 Antibiotics) SWELLED/HIVES TO SULFA DRUGS gabapentin Allergy Rash Verified 06/08/21 09:44 nitrofurantoin AdvReac Severe CAUSES Verified 06/08/21 09:44 HEPATITUS hydromorphone AdvReac Intermediate HALLUCINATI Verified 06/08/21 09:44 ONS Past Med/Surg History Medical History Anxiety Asthma WELL CONTROLLED PER PT Asymptomatic postmenopausal status Atrial fibrillation DX YEARS AGO; FOLLOWS WITH DR. MALLOY Breast lump Carpal tunnel syndrome of left wrist Chronic kidney disease ONLY 1 KIDNEY FUNCTIONING 80%; FOLLOWS DR. 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 - NO STENTS/ANGIOPLASTY History of carpal tunnel release RT/ LT History of cataract surgery BL History of colonoscopy History of esophagogastroduodenoscopy (EGD) History of hysterectomy AND OOPHERECTOMY History of thyroidectomy, subtotal History of tooth extraction History of total knee replacement RT/LEFT Family History Brother History of colon resection Colorectal cancer Diabetes Prostate cancer Sister Breast cancer Mother Diabetes Coronary heart disease Father Myocardial infarction Denies family history of Ovarian cancer Social History Smoking Status: Never smoker Second Hand Exposure: No; Hx Alcohol Use: No Hx Substance Use: No Preferred Language: [place]i Communication Ability: Effective Visual Impairment: No Limitations Hearing Ability: Normal River Driver Required: No Beliefs That Will Affect Care: None marital status: / Current Living Situation: Alone Current Living Situation Comment: spouse lives in a home current occupational status: retired current occupation: used to be a [employer] How many Children do You have: 2 Feels Safe at Home: Yes Childhood Exposure to Second-Hand Smoke: No caffeine: Yes (soda rarley) Dental Care, Regularly: No Physical Activity Frequency: Daily Seatbelt Use: always Sunscreen Use: Yes Assistive Devices: Nebulizer, Oxygen - Continuous and Walker Review of Systems A total of 10 systems reviewed and were otherwise negative All systems reviewed & are unremarkable except as noted in HPI & below Physical Exam Vital Signs Vital Signs - 24 hr 06/08/21 08:54 06/08/21 08:55 06/08/21 08:57 Temperature 36.8 C Temperature Source Oral Pulse Rate 81 80 Pulse Rate from SpO2 Sensor 84 Respiratory Rate 22 20 Respiratory Effort / Characteristics Non-Labored Blood Pressure 167/85 H 167/85 H Blood Pressure Mean 112 112 Pulse Oximetry 90 81 L Oxygen Delivery Method Oxymask Oxymask Oxygen Flow Rate 10 6 Sepsis Recent Fever Within 48 Hours No Sepsis New/Unexplained Change in Mental Status No Sepsis Action Taken by Nursing No Action Required Oxygen Flow Rate - Titration Pulse Oximetry Post Tiitration 06/08/21 09:00 06/08/21 09:15 06/08/21 09:30 Temperature Temperature Source Pulse Rate 75 70 74 Pulse Rate from SpO2 Sensor 75 71 73 Respiratory Rate 25 H 22 22 Respiratory Effort / Characteristics Blood Pressure 168/96 H Blood Pressure Mean 120 Pulse Oximetry 88 L 91 89 L Oxygen Delivery Method Oxymask Oxymask Oxymask Oxygen Flow Rate 10 12 12 Sepsis Recent Fever Within 48 Hours Sepsis New/Unexplained Change in Mental Status Sepsis Action Taken by Nursing Oxygen Flow Rate - Titration 10 Pulse Oximetry Post Tiitration 91 06/08/21 09:31 06/08/21 09:45 06/08/21 10:11 Temperature Temperature Source Pulse Rate 78 77 72 Pulse Rate from SpO2 Sensor 80 76 64 Respiratory Rate 24 22 23 Respiratory Effort / Characteristics Blood Pressure 146/73 H Blood Pressure Mean 97 Pulse Oximetry 94 93 95 Oxygen Delivery Method Oxymask Oxymask Oxymask Oxygen Flow Rate 12 12 10 Sepsis Recent Fever Within 48 Hours Sepsis New/Unexplained Change in Mental Status Sepsis Action Taken by Nursing Oxygen Flow Rate - Titration Pulse Oximetry Post Tiitration 06/08/21 10:15 06/08/21 10:30 06/08/21 10:45 Temperature Temperature Source Pulse Rate 67 68 67 Pulse Rate from SpO2 Sensor 67 69 67 Respiratory Rate 24 26 H 24 Respiratory Effort / Characteristics Blood Pressure 163/91 H Blood Pressure Mean 115 Pulse Oximetry 91 91 93 Oxygen Delivery Method Oxymask Oxymask Oxymask Oxygen Flow Rate 10 10 10 Sepsis Recent Fever Within 48 Hours Sepsis New/Unexplained Change in Mental Status Sepsis Action Taken by Nursing Oxygen Flow Rate - Titration Pulse Oximetry Post Tiitration 06/08/21 11:00 06/08/21 11:15 06/08/21 11:30 Temperature Temperature Source Pulse Rate 70 70 78 Pulse Rate from SpO2 Sensor 68 71 Respiratory Rate 22 25 H 18 Respiratory Effort / Characteristics Blood Pressure 174/101 H Blood Pressure Mean 125 Pulse Oximetry 95 91 Oxygen Delivery Method Oxymask Oxymask Oxygen Flow Rate 10 10 Sepsis Recent Fever Within 48 Hours Sepsis New/Unexplained Change in Mental Status Sepsis Action Taken by Nursing Oxygen Flow Rate - Titration Pulse Oximetry Post Tiitration 06/08/21 11:31 Temperature Temperature Source Pulse Rate 75 Pulse Rate from SpO2 Sensor 74 Respiratory Rate 32 H Respiratory Effort / Characteristics Blood Pressure 165/94 H Blood Pressure Mean 117 Pulse Oximetry 90 Oxygen Delivery Method Oxymask Oxygen Flow Rate 8 Sepsis Recent Fever Within 48 Hours Sepsis New/Unexplained Change in Mental Status Sepsis Action Taken by Nursing Oxygen Flow Rate - Titration Pulse Oximetry Post Tiitration GENERAL: alert, well appearing, well nourished, no distress, non-toxic EYE EXAM: normal conjunctiva, PERRL and EOM's grossly intact OROPHARYNX: no exudate, no erythema, lips, buccal mucosa, and tongue normal and mucous membranes are moist NECK: supple, no nuchal rigidity, no adenopathy, non-tender LUNGS: Clear to auscultation. Normal chest wall mechanics, no w/r/r, no apparent increased work of breathing or tachypnea HEART: no murmurs, S1 normal and S2 normal ABDOMEN: abdomen soft, non-tender, normo-active bowel sounds, no masses, no rebound or guarding. BACK: Back is symmetrical on inspection and there is no deformity, no midline tenderness, no CVA tenderness. SKIN: no rashes and no bruising UPPER EXTREMITIES: upper extremities are grossly normal. FROM, nml pulses b/l. LOWER EXTREMITIES: 1+ b/l pitting edema. FROM, nml pulses b/l. NEURO EXAM: Normal sensorium, cranial nerves II-XII grossly intact, normal s peech, no gross weakness of arms, no gross weakness of legs. Gross sensation intact. Course Course 1030: Discussed with daughter, Moon. Has been on oxygen for over a year. Wears 4 lpm chronically. She found her this morning without her oxygen. Daughter states she sometimes is noncompliant. States has restrictive lung disease. States she hasn't been eating either. 1122: Patient's daughter now bedside. Discussed results of labs and imaging here. We did discuss consideration for eventual need for placement given she states patient has been noncompliant with her medications in addition to wearing oxygen. I suspect that is the reason for her elevated TSH. She also states she does not feel she is likely taking her Lasix as she is supposed to. Administered Medications Amlodipine Besylate (Amlodipine Besylate 5 Mg Tab) 5 mg PO QAM PENDING SALE TO [facility] Stop: 07/09/21 08:59 Last Admin: 06/09/21 08:31 Dose: 5 mg Documented by: [id number] Aspirin (Aspirin 81 Mg Ectab) 81 mg PO QAM PENDING SALE TO [facility] Stop: 07/09/21 08:59 Last Admin: 06/09/21 08:31 Dose: 81 mg Documented by: [id number] Atorvastatin Calcium (Atorvastatin 20 Mg Tab) 20 mg PO [facility] Stop: 07/08/21 20:59 Last Admin: 06/08/21 21:02 Dose: 20 mg Documented by: [id number] Docusate Sodium (Docusate Sodium 100 Mg Cap) 300 mg PO [facility] Stop: 07/08/21 20:59 Last Admin: 06/08/21 21:02 Dose: 300 mg Documented by: [id number] Doxazosin Mesylate (Doxazosin Mesylate 4 Mg Tab) 4 mg PO BID JACQUES Stop: 07/08/21 20:59 Last Admin: 06/09/21 08:32 Dose: 4 mg Documented by: [id number] Admin: 06/08/21 21:02 Dose: 4 mg Documented by: [id number] Fish Oil ([place]-3 (Purified Fish Oil) 1 Gm Cap) 1 gm PO QAM JACQUES Stop: 07/09/21 08:59 Last Admin: 06/09/21 08:32 Dose: 1 gm Documented by: [id number] Furosemide (Furosemide 40 Mg/4 Ml Vial) 40 mg IV [id number] JACQUES Stop: 07/08/21 16:59 Last Admin: 06/09/21 17:49 Dose: 40 mg Documented by: [id number] Admin: 06/09/21 08:33 Dose: 40 mg Documented by: [id number] Admin: 06/08/21 16:27 Dose: 40 mg Documented by: [id number] Levothyroxine Sodium (Levothyroxine Sodium 137 Mcg Tablet) 137 mcg PO DAILYBB PEND[facility] SALE TO [facility] Stop: 07/09/21 06:29 Last Admin: 06/09/21 05:34 Dose: 137 mcg Documented by: [id number] Metoprolol Succinate (Metoprolol Succ 50mg Ext Rel Tab) [facility] [place]: 07/09/21 08:59 Last Admin: 06/09/21 08:30 Dose: 100 mg Documented by: [id number] Miscellaneous (*Preservision Areds*Order Awaiting Action) 1 ea N/A QS PENDING SALE TO [facility] Stop: 07/09/21 00:00 Last Admin: 06/09/21 16:33 Dose: Not Given Documented by: [id number] Admin: 06/09/21 08:42 Dose: Not Given Documented by: [id number] Admin: 06/09/21 00:00 Dose: Not Given Documented by: [id number] Multivitamins/Minerals (Cerovite Adv Formula Tab) 1 tab PO QAM [facility]END[facility] S[facility] Stop: 07/09/21 08:59 Last Admin: 06/09/21 08:31 Dose: 1 tab Documented by: [id number] Prednisone (Prednisone 5 Mg Tab) 5 mg PO BID [facility] Stop: 07/08/21 20:59 Last Admin: 06/09/21 08:32 Dose: 5 mg Documented by: [id number] Admin: 06/08/21 21:03 Dose: 5 mg Documented by: [id number] Sertraline HCl (Sertraline Hcl 100 Mg Tablet) 100 mg PO PM [facility]END[facility] S[facility] Stop: 07/08/21 20:59 Last Admin: 06/08/21 21:03 Dose: 100 mg Documented by: [id number] Telmisartan (Telmisartan 40 Mg Tab) 80 mg PO QAM PEND[facility] SALE TO [facility] Stop: 07/09/21 08:59 Last Admin: 06/09/21 08:32 Dose: 80 mg Documented by: [id number] Umeclidinium [place] (Umeclidinium [place] 62.5mcg/Blister 7 Puffs/Inhaler) 1 puffs INH DAILY PEND[facility] SALE TO [facility] Stop: 07/09/21 08:59 Last Admin: 06/09/21 08:34 Dose: 1 puffs Documented by: [id number] Vitamin D (Cholecalciferol 1,000 Units 25 Mcg Tab) 1,000 units PO QAM PEND[facility] SALE [facility] Stop: 07/09/21 08:59 Last Admin: 06/09/21 08:31 Dose: 1,000 units Documented by: [id number] Discontinued Medications Albuterol (Albut/Ipratrop 3mg/0.5mg Neb 3 Ml Vial) 3 ml NEB NOW STA; Protocol Stop: 06/08/21 13:47 Last Admin: 06/08/21 13:54 Dose: 3 ml Documented by: [id number] Furosemide (Furosemide 40 Mg/4 Ml Vial) 40 mg IV ONE ONE Stop: 06/08/21 11:11 Last Admin: 06/08/21 11:34 Dose: 40 mg Documented by: [id number] Ioversol (Optiray 320 125ml) 120 ml IV ONCE ONE Stop: 06/08/21 10:16 Last Admin: 06/08/21 10:05 Dose: 120 ml Documented by: [id number] Metoprolol Succinate (Metoprolol Succ 50mg Ext Rel Tab) 100 mg PO NOW STA Stop: 06/08/21 13:50 Last Admin: 06/08/21 14:07 Dose: 100 mg Documented by: [id number] Telmisartan (Telmisartan 40 Mg Tab) 40 mg PO ONE STA Stop: 06/08/21 13:49 Last Admin: 06/08/21 14:07 Dose: 40 mg Documented by: [id number] Medical Decision Making Differential Diagnosis Differential diagnoses includes but is not limited to pneumonia, bronchitis, COPD/Asthma exacerbation, pneumothorax, pulmonary embolism, congestive heart failure, acute coronary syndrome Medical Records Attestation: I reviewed the patient's medical records. Home Medications Current Medication List: was personally reviewed by me Laboratory Data Attestation: I reviewed the patient's lab results. Result diagrams: 06/09/21 07:10 06/09/21 07:10 Lab Results 06/08/21 06/08/21 06/08/21 Range/Units 08:59 08:59 08:59 WBC 9.58 (4.8-10.8) K/uL RBC 3.87 L (4.2-5.4) M/uL Hgb 11.0 L (12.0-16.0) g/dL Hct 35.1 L (37-47) % MCV 90.7 (80-100) fL MCH 28.4 (25-34) pg MCHC 31.3 L (32-36) g/dL RDW Std Deviation 53.9 H (36.4-46.3) fL RDW Coeff of Yanelis 16.4 H (11.5-14.5) % Plt Count 258 (130-400) K/uL MPV 9.4 (7.4-10.4) fL Immature Gran % (Auto) 0.6 % Neut % (Auto) 83.0 % Lymph % (Auto) 7.1 % [place] % (Auto) 7.6 % Eos % (Auto) 1.5 % Baso % (Auto) 0.2 % Neut # (Auto) 7.95 H (1.4-6.5) K/uL Lymph # (Auto) 0.68 L (1.2-3.4) K/uL [place] # (Auto) 0.73 H (0.11-0.59) K/uL Eos # (Auto) 0.14 (0-0.5) K/uL Baso # (Auto) 0.02 (0-0.2) K/uL Immature Gran # (Auto) 0.06 H (0.00-0.02) K/uL Sodium 141 (136-145) mmol/L Potassium 4.2 (3.5-5.1) mmol/L Chloride 107 (98-107) mmol/L Carbon Dioxide 25 (21-32) mmol/L Anion Gap 9 (3-11) BUN 27 H (6-23) mg/dl Creatinine 1.32 H (0.6-1.2) mg/dl Est Cr Clr Drug Dosing 26.4 ml/min Est GFR ( Amer) 41.9 ml/min Est GFR (Non-Af Amer) 36.2 ml/min BUN/Creatinine Ratio 20.5 H (10-20) Glucose 161 H (70-99(Fasting)) mg/dl Calcium 9.0 (8.5-10.1) mg/dl Magnesium 1.7 (1.7-2.4) mg/dl Total Bilirubin 0.8 (0.2-1.0) mg/dl AST 73 H (13-39) U/L ALT 61 H (7-52) U/L Alkaline Phosphatase 101 (34-104) U/L Troponin I 0.43 H* (0-0.04) ng/ml B-Natriuretic Peptide 1251 H (0-100) pg/ml Total Protein 6.1 (6.0-8.3) gm/dl Albumin 3.7 (3.4-5.0) gm/dl Globulin 2.4 L (2.5-4.0) gm/dl Albumin/Globulin Ratio 1.5 (0.9-2) TSH (0.300-4.500) uIu/ml Free T4 (0.61-1.60) ng/dl SARS-CoV-2, RNA, NAAT (NEGATIVE) 06/08/21 06/08/21 Range/Units 08:59 11:20 WBC (4.8-10.8) K/uL RBC (4.2-5.4) M/uL Hgb (12.0-16.0) g/dL Hct (37-47) % MCV (80-100) fL MCH (25-34) pg MCHC (32-36) g/dL RDW Std Deviation (36.4-46.3) fL RDW Coeff of Yanelis (11.5-14.5) % Plt Count (130-400) K/uL MPV (7.4-10.4) fL Immature Gran % (Auto) % Neut % (Auto) % Lymph % (Auto) % [place] % (Auto) % Eos % (Auto) % Baso % (Auto) % Neut # (Auto) (1.4-6.5) K/uL Lymph # (Auto) (1.2-3.4) K/uL [place] # (Auto) (0.11-0.59) K/uL Eos # (Auto) (0-0.5) K/uL Baso # (Auto) (0-0.2) K/uL Immature Gran # (Auto) (0.00-0.02) K/uL Sodium (136-145) mmol/L Potassium (3.5-5.1) mmol/L Chloride (98-107) mmol/L Carbon Dioxide (21-32) mmol/L Anion Gap (3-11) BUN (6-23) mg/dl Creatinine (0.6-1.2) mg/dl Est Cr Clr Drug Dosing ml/min Est GFR ( Amer) ml/min Est GFR (Non-Af Amer) ml/min BUN/Creatinine Ratio (10-20) Glucose (70-99(Fasting)) mg/dl Calcium (8.5-10.1) mg/dl Magnesium (1.7-2.4) mg/dl Total Bilirubin (0.2-1.0) mg/dl AST (13-39) U/L ALT (7-52) U/L Alkaline Phosphatase (34-104) U/L Troponin I (0-0.04) ng/ml B-Natriuretic Peptide (0-100) pg/ml Total Protein (6.0-8.3) gm/dl Albumin (3.4-5.0) gm/dl Globulin (2.5-4.0) gm/dl Albumin/Globulin Ratio (0.9-2) TSH 23.470 H (0.300-4.500) uIu/ml Free T4 1.07 (0.61-1.60) ng/dl SARS-CoV-2, RNA, NAAT NEGATIVE (NEGATIVE) Imaging Data Radiologist's Impression: Chest X-Ray 06/08/21 08:53 XR chest 1V portable CLINICAL HISTORY: Shortness of breath. COMPARISON STUDY: Chest CT January 25, 2021. Chest radiograph May 27, 2021. FINDINGS: 1.3 cm sclerotic lesion within the proximal left humerus is unchanged from earlier exams. This is benign given stability. Mild diffuse sclerosis of visualized skeletal structures is unchanged. No pneumothorax or pleural effusion is noted. Opacity along left heart border likely reflects atelectasis and epica rdial fat-pad. Cardiomegaly is unchanged. Mild reticulonodular interstitial thickening is present. IMPRESSION: 1. Mild reticulonodular interstitial thickening. This could reflect mild pulmonary edema or an infectious process. 2. Cardiomegaly. ACT 112: Negative or not required by law. Electronically signed by: Stephen Whitehead M.D. 06/08/2021 9:43 AM Chest CTA 06/08/21 09:45 CT ANGIOGRAM OF THE CHEST CLINICAL HISTORY: Dyspnea. COMPARISON STUDY: Chest x-ray dated 06/08/2021. Chest CT dated 01/25/2021. TECHNIQUE: Following the IV administration of 120 cc of Optiray 320, CT angiogr am of the chest was performed from the upper abdomen to the thoracic inlet utilizing the pulmonary embolus protocol. Images are reviewed in the axial, sagittal, and coronal planes. 3-D MIPS images are created and assessed. IV contrast was administered without complication. A dose lowering technique was utilized adhering to the principles of ALARA. The Examination is significantly degraded by motion artifact. CT DOSE: 375.37 mGy.cm FINDINGS: Thyroid: Imaged portions of the thyroid gland are normal in size and attenua tion. Thoracic aorta: There is atherosclerotic calcification of the thoracic aorta, which is normal in caliber and demonstrates standard 3-vessel arch anatomy. The thoracic aorta is not well opacified. Pulmonary vasculature: The pulmonary trunk is dilated, measuring 4.5 cm in diameter. This indicates pulmonary artery hypertension. There are no filling defects identified in main, lobar, or segmental pulmonary branches to suggest pulmonary embolus. Evaluation of the subsegmental branches is degraded by motion artifact. Heart: The heart is markedly enlarged and without pericardial effusion. The coronary arteries and mitral annulus are densely calcified. Lungs and pleural spaces: Evaluation of the lung parenchyma is severely degraded by motion artifact. There are small pleural effusions with dependent scarring/atelectasis. Diffuse intralobular septal thickening is noted. Groundglass opacities are seen throughout both lungs. The trachea and central airways appear clear. Lower neck: There are mildly enlarged supraclavicular lymph nodes which measure up to 1.1 cm in short axis. Mediastinum: Mediastinal lymphadenopathy is similar to previous. Prevascular nodes measure up to 1.8 cm in short axis. Precarinal nodes measure up to 1.5 cm in short axis. High right peritracheal nodes measure up to 1.4 cm in short axis. Daniela: Mildly enlarged hilar nodes measure up to 1.4 cm in short axis. Axillae: There is no axillary lymphadenopathy. Upper abdomen: Partially visualized upper abdominal viscera is grossly unremarkable. There is reflux of contrast in the IVC and hepatic veins suggesting cardiac dysfunction. Skeletal structures: The skeletal structures are osteopenic. Degenerative change and hyperkyphosis is noted throughout the thoracic spine. Advanced arthritic change is seen in the shoulders. No lytic or blastic bony lesions are seen. IMPRESSION: 1. Significantly motion compromised examination. 2. There is no evidence of pulmonary embolus in the main, lobar, or segmental pulmonary arteries. 3. Cardiomegaly with evidence of pulmonary artery hypertension and congestive failure. 4. Groundglass change throughout both lungs likely represents pulmonary edema. Correlate clinically for evidence of a superimposed infectious/inflammatory pneumonitis. 5. Small pleural effusions. 6. Mediastinal, hilar, and supraclavicular lymphadenopathy is nonspecific and similar to previous. ACT 112: Negative or not required by law. Electronically signed by: Brock Lou M.D. 06/08/2021 10:23 AM ECG Data Attestation: I personally reviewed and interpreted this ECG as follows: Indication: + SOB/dyspnea Rate (beats per minute): 85 Rhythm: + normal sinus ECG Intervals/blocks: + Normal QRS and + Normal QT ECG [place]: + Normal ECG ST segments: + Nonspecific ST abnormalities MDM Narrative This is an 86-year-old female who presents the emergency department after being found significantly hypoxic and short of breath by family. Patient does wear oxygen chronically at home, however oxygen was in the room opposite from her when she was found. Patient does live alone but has frequent family and caregivers to stop and to see her. Patient was afebrile and well-appearing here, denied any shortness of breath. Patient had been increased to a nonrebre ather and oxygen levels did improve. Patient's blood work showed elevated BNP. Chest x-ray with evidence of pulmonary edema. Upon arrival of patient's daughter, she does state her mother is frequently noncompliant and she suspects that likely contributed to the state they found her in the day. Patient also found an elevated troponin, expect this is secondary to the profound hypoxia she was experiencing for an unknown amount of time. Not suspect occult infectious etiology. No evidence of overt congestive heart failure the patient does have cardiac history. An order was placed for continuous cardiac monitoring. The monitor shows a rate of _78_ with _normal sinus__ rhythm. Impression & Plan Dyspnea, Weakness, Hypoxia, Pulmonary edema, Noncompliance, Chronic respiratory failure with hypoxia, on home O2 therapy Discharge Plan Visit Data Chief Complaint: Shortness of Breath/Dyspnea Stated Complaint: SOB ED Provider: Emily Garza Discharge Problem: Dyspnea, Weakness, Hypoxia, Pulmonary edema, Noncompliance, Chronic respiratory failure with hypoxia, on home O2 therapy Patient Disposition: Admitted As Inpatient Discharge Instructions Interventions: ED Discharge Assessment Last Done: 06/08/21 14:39 Discharge Problem: Dyspnea Qualifiers: Dyspnea type: shortness of breath Qualified Code(s): R06.02 - Shortness of breath Pulmonary edema Qualifiers: Chronicity: acute Qualified Code(s): J81.0 - Acute pulmonary edema
[2021-06-08 09:44] LABS: Albumin Globulin Ratio 1.5 (0.9-2); Albumin Level 3.7 gm/dl (3.4-5.0); BUN Creatinine Ratio 20.5 (10-20); Bilirubin,Total 0.8 mg/dl (0.2-1.0); Creatinine Clr Calc Pharmacy 26.4 ml/min; Est GFR (African American) 41.9 ml/min; Est GFR (Non-African American) 36.2 ml/min; Globulin 2.4 gm/dl (2.5-4.0); Magnesium 1.7 mg/dl (1.7-2.4); Potassium 4.2 mmol/L (3.5-5.1); Total Protein 6.1 gm/dl (6.0-8.3)
--- NOTE | 2021-06-08 09:44 | XRay Report ---
XR chest 1V portable CLINICAL HISTORY: Shortness of breath. COMPARISON STUDY: Chest CT January 25, 2021. Chest radiograph May 27, 2021. FINDINGS: 1.3 cm sclerotic lesion within the proximal left humerus is unchanged from earlier exams. T his is benign given stability. Mild diffuse sclerosis of visualized skeletal structures is unchanged. No pneumothorax or pleural effusion is noted. Opacity along left heart border likely reflects atelec tasis and epicardial fat-pad. Cardiomegaly is unchanged. Mild reticulonodular interstitial thickening is present. IMPRESSION: 1. Mild reticulonodular interstitial thickening. This could reflect mild pulmonary edema or an infect ious process. 2. Cardiomegaly. ACT 112: Negative or not required by law. Electronically signed by: Stephen Whitehead M.D. 06/08/2021 9:43 AM
[2021-06-08 09:57] LABS: Thyroid Stimulating Hormone 23.47 uIu/ml (0.300-4.500)
[2021-06-08] MEDS ORDERED: OPTIRAY 320 125ml IV ONE (10:15)
--- NOTE | 2021-06-08 10:25 | CT Scan Report ---
CT ANGIOGRAM OF THE CHEST CLINICAL HISTORY: Dyspnea. COMPARISON STUDY: Chest x-ray dated 06/08/2021. Chest CT dated 01/25/2021. TECHNIQUE: Following the IV administration of 120 cc of Optiray 320, CT angiogram of the chest was pe rformed from the upper abdomen to the thoracic inlet utilizing the pulmonary embolus protocol. Images are reviewed in the axial, sagittal, and coronal planes. 3-D MIPS images are created and assessed. I V contrast was administered without complication. A dose lowering technique was utilized adhering to the principles of ALARA. The Examination is significantly degraded by motion artifact. CT DOSE: 375.37 mGy.cm FINDINGS: Thyroid: Imaged portions of the thyroid gland are normal in size and attenuation. Thoracic aorta: There is atherosclerotic calcification of the thoracic aorta, which is normal in meseret ming and demonstrates standard 3-vessel arch anatomy. The thoracic aorta is not well opacified. Pulmonary vasculature: The pulmonary trunk is dilated, measuring 4.5 cm in diameter. This indicates p ulmonary artery hypertension. There are no filling defects identified in main, lobar, or segmental pu lmonary branches to suggest pulmonary embolus. Evaluation of the subsegmental branches is degraded by motion artifact. Heart: The heart is markedly enlarged and without pericardial effusion. The coronary arteries and dionne ral annulus are densely calcified. Lungs and pleural spaces: Evaluation of the lung parenchyma is severely degraded by motion artifact. There are small pleural effusions with dependent scarring/atelectasis. Diffuse intralobular septal th ickening is noted. Groundglass opacities are seen throughout both lungs. The trachea and central airw ays appear clear. Lower neck: There are mildly enlarged supraclavicular lymph nodes which measure up to 1.1 cm in short axis. Mediastinum: Mediastinal lymphadenopathy is similar to previous. Prevascular nodes measure up to 1.8 cm in short axis. Precarinal nodes measure up to 1.5 cm in short axis. High right peritracheal nodes measure up to 1.4 cm in short axis. Daniela: Mildly enlarged hilar nodes measure up to 1.4 cm in short axis. Axillae: There is no axillary lymphadenopathy. Upper abdomen: Partially visualized upper abdominal viscera is grossly unremarkable. There is reflux of contrast in the IVC and hepatic veins suggesting cardiac dysfunction. Skeletal structures: The skeletal structures are osteopenic. Degenerative change and hyperkyphosis is noted throughout the thoracic spine. Advanced arthritic change is seen in the shoulders. No lytic or blastic bony lesions are seen. IMPRESSION: 1. Significantly motion compromised examination. 2. There is no evidence of pulmonary embolus in the main, lobar, or segmental pulmonary arteries. 3. Cardiomegaly with evidence of pulmonary artery hypertension and congestive failure. 4. Groundglass change throughout both lungs likely represents pulmonary edema. Correlate clinically f or evidence of a superimposed infectious/inflammatory pneumonitis. 5. Small pleural effusions. 6. Mediastinal, hilar, and supraclavicular lymphadenopathy is nonspecific and similar to previous. ACT 112: Negative or not required by law. Electronically signed by: Brock Lou M.D. 06/08/2021 10:23 AM
[2021-06-08 10:34] LABS: T4 Free Thyroxine 1.07 ng/dl (0.61-1.60)
[2021-06-08] MEDS ORDERED: FUROSEMIDE 40 MG/4 ML VIAL IV ONE (11:10)
--- NOTE | 2021-06-08 12:00 | History & Physical Report ---
Date of Service June 08, 2021 Assessment & Plan (1) Acute on chronic diastolic heart failure: Plan: Suspect acute exacerbation due to not taking her regular medications in setting of aortic stenosis Recent TTE with LVEF 65-70%, moderate valvular aortic stenosis [04/08/21], no need to repeat this Lasix 40mg IV BID Strict I&Os, daily weights Low Na, heart healthy diet, will hold off fluid restriction unless intake is high (2) Acute and chronic respiratory failure with hypoxia: Plan: Secondary to CHF Aim O2 sats > 90% (3) Aortic stenosis: Plan: Likely cause of CHF as above (4) COPD (chronic obstructive pulmonary disease): Plan: Continue her routine medications with Incruse Ellipta (5) Depression: Plan: Continue sertraline 100mg PO HS (6) Stage III chronic kidney disease: Plan: Cr mildly above baseline @ 1.32, Will continue to monitor in IV diuretics as above. Suspect from hypervolemic state. (7) Hypothyroidism: Plan: TSH 23.47, free T4 1.07 In setting of not knowing if she is taking her regular medications will just restart her usual levothyroxine dose of 137mcg PO daily (8) Hypertension: Plan: Continue her usual medications with amlodipine, metoprolol, doxazosin and telmi sartan in addition to Lasix dosing as above (9) Rheumatoid arthritis: Plan: Continue prednisone 5mg PO BID (10) Paroxysmal supraventricular tachycardia: Plan: Continue metoprolol succinate. Notably last admission patient was taken off diltiazem and started on amlodipine. Plan: VTE Prophylaxis - heparin 5000 units BID Diet - heart healthy, low Na Disposition - admit to med/tele Admission and Anticipated Discharge Date Admission Date: June 08, 2021 History of Present Illness Chief Complaint: Hypoxia Primary Care Provider: Amador Coleman MD Ruthy Vaughn is an 86 year old female with COPD dependant on home O2 2LPM who presents to the ER with hypoxia. Per daughter at bedside she getting slightly more short of breath starting yesterday and appeared to be more lethargic. Today she appeared to be more short of breath over the phone. Her daughter came to her house and noticed the patient was in the bedroom not wearing her oxygen which was in the kitchen. She put the patient on oxygen and turned it up and called for an ambulance. She has also noticed the patient has not been taking her medications routinely as some medications in her pill box have not been taken and the number on her inhalers has not been counting down. Unable to get much history from patient directly, but she currently denies any chest pain or shortness of breath at rest. In the ER CXR and CT chest concerning for pulmonary edema. She is currently requiring 10LPM O2 via oxymask to maintain O2 sats > 90%. She was diagnosed with CHF and treated with Lasix 40mg IV. She was referred to medicine for admission and ongoing management of pulmonary edema. Allergies Allergy/AdvReac Type Severity Reaction Status Date / Time bee venom protein (honey bee) Allergy Intermediate HIVES Verified 06/08/21 09:44 oxycodone Allergy Unknown Unknown Verified 06/08/21 09:44 Sulfa (Sulfonamide Allergy Unknown MOUTH Verified 06/08/21 09:44 Antibiotics) SWELLED/HIVES TO SULFA DRUGS gabapentin Allergy Rash Verified 06/08/21 09:44 nitrofurantoin AdvReac Severe CAUSES Verified 06/08/21 09:44 HEPATITUS hydromorphone AdvReac Intermediate HALLUCINATI Verified 06/08/21 09:44 ONS Home Medications Medication Instructions Recorded Confirmed Type ascorbic acid (vitamin C) 500 mg 500 mg PO QAM 02/08/18 06/08/21 History capsule aspirin 81 mg tablet,delayed 81 mg PO QAM 02/08/18 06/08/21 History release cholecalciferol (vitamin D3) 25 1,000 unit PO QAM 02/08/18 06/08/21 History mcg (1,000 unit) tablet (Vitamin D3) erzhdusw-ogx-yboie acid 0.4 1 tab PO QAM 02/08/18 06/08/21 History mg-lycopene 300 mcg-lutein 250 mcg tablet (Centrum Silver) omega 6-hwd-qkj-fish oil 1,000 mg 1 cap PO QAM 02/08/18 06/08/21 History (120 mg-180 mg) capsule (Fish Oil) vitamins A,C,L-qcki-jeqmxs 7,160 1 tab PO BID 02/08/18 06/08/21 History unit-113 mg-100 unit tablet (PreserVision AREDS) Oxygen Home #1 ea 10/19/18 05/28/21 Rx docusate sodium 100 mg capsule 300 mg PO HS cap 05/13/19 06/08/21 History Thera Cran 1 dose PO QAM 11/25/19 06/08/21 History vitamin E 1,000 unit capsule 1,000 unit PO QAM 11/25/19 06/08/21 History metoprolol succinate 100 mg 100 mg PO QAM #90 tab 03/12/20 06/08/21 Rx tablet,extended release 24 hr prevagen Extra strength 1 tab PO QAM 08/12/20 06/08/21 History telmisartan 80 mg tablet 80 mg PO QAM #90 tab 08/12/20 06/08/21 Rx atorvastatin 20 mg tablet 20 mg PO HS #90 tab 11/03/20 06/08/21 Rx furosemide 20 mg tablet (Lasix) 20 mg PO QAM PRN #270 tab 12/25/20 06/08/21 Rx sertraline 100 mg tablet 100 mg PO PM #90 tab 01/05/21 06/08/21 Rx Flutter Valve #1 ea 02/03/21 05/28/21 Rx Oxygen Home #1 ea 02/03/21 05/28/21 Rx lorazepam 0.5 mg tablet 0.5 mg PO BID PRN #180 tab 03/03/21 06/08/21 Rx Oxygen Home #4 l 05/18/21 05/28/21 Rx levalbuterol HCl 1.25 mg/3 mL 1.25 mg INHALATION Q4 PRN #90 ml 05/18/21 06/08/21 Rx solution for nebulization umeclidinium 62.5 mcg/actuation 1 puff INHALATION DAILY #1 inh 05/18/21 06/08/21 Rx blister powder for inhalation (Incruse Ellipta) albuterol sulfate 90 mcg/actuation 2 inh INHALATION Q4H PRN 06/08/21 06/08/21 History aerosol inhaler (Ventolin HFA) amlodipine 5 mg tablet 5 mg PO QAM 06/08/21 06/08/21 History cyanocobalamin (vitamin B-12) 0 mcg PO QAM 06/08/21 06/08/21 History 1,000 mcg tablet (Vitamin B-12) doxazosin 4 mg tablet (Cardura) 4 mg PO BID 06/08/21 06/08/21 History levothyroxine 137 mcg tablet 137 mcg PO DAILYBB 06/08/21 06/08/21 History prednisone 5 mg tablet 5 mg PO BID 06/08/21 06/08/21 History Past Med/Surg History Medical History Anxiety Asthma WELL CONTROLLED PER PT Asymptomatic postmenopausal status Atrial fibrillation DX YEARS AGO; FOLLOWS WITH DR. MALLOY Breast lump Carpal tunnel syndrome of left wrist Chronic kidney disease ONLY 1 KIDNEY FUNCTIONING 80%; FOLLOWS DR. 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 - NO STENTS/ANGIOPLASTY History of carpal tunnel release RT/ LT History of cataract surgery BL History of colonoscopy History of esophagogastroduodenoscopy (EGD) History of hysterectomy AND OOPHERECTOMY History of thyroidectomy, subtotal History of tooth extraction History of total knee replacement RT/LEFT Family History Brother History of colon resection Colorectal cancer Diabetes Prostate cancer Sister Breast cancer Mother Diabetes Coronary heart disease Father Myocardial infarction Denies family history of Ovarian cancer Social History Smoking Status: Never smoker Second Hand Exposure: No; Hx Alcohol Use: No Hx Substance Use: No Preferred Language: Guyanese Communication Ability: Effective Visual Impairment: No Limitations Hearing Ability: Normal Carbon Brushes Assembler Required: No Beliefs That Will Affect Care: None marital status: / Current Living Situation: Alone Current Living Situation Comment: spouse lives in a home current occupational status: retired 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 How many Children do You have: 1 Feels Safe at Home: Yes Childhood Exposure to Second-Hand Smoke: No caffeine: Yes (soda rarley) Dental Care, Regularly: No Physical Activity Frequency: Daily Seatbelt Use: always Sunscreen Use: Yes Assistive Devices: Oxygen - Continuous Review of Systems Review of Systems: All systems reviewed & are unremarkable except as noted in HPI & below Physical Exam Constitutional: WD/WN, vitals as above no acute distress Eyes: + anicteric sclerae; normal pupil size ENMT: external ear and nose normal, oropharynx normal Respiratory: + respiratory distress, + uses accessory muscles and able to speak in complete sentences Auscultation: + crackles (bibasal) and + wheezes (posterior on expiration only); no diminished lung sounds, no rales and no rhonchi Cardiovascular: Rate/Rhythm: regular rate and regular rhythm Heart Sounds: + murmur (ASHLEIGH loudest in LUSB) Extremities: normal capillary refill and + pedal edema (2+ pitting equal b/l); no calf tenderness Gastrointestinal (Abdomen): Inspection/Auscultation: normal bowel sounds Percussion/Palpation: abdomen soft; abdomen nontender, no guarding and abdomen not rigid Musculoskeletal: no cyanosis or clubbing, extremities motor strength 5/5 Skin: no rashes, warm and dry Neurologic: moves all extremities and awake; not confused Psychiatric: Orientation: alert, oriented to person and oriented to place; + not oriented to time Genitourinary: no CVA tenderness Results & Data Results & Data ([facility]) Vital Signs (Past 12 Hours) Vital Signs Temp Pulse Resp BP Pulse Ox 06/08/21 11:31 75 32 H 165/94 H 90 06/08/21 11:30 78 18 91 06/08/21 11:15 70 25 H 95 06/08/21 11:00 70 22 174/101 H 06/08/21 10:45 67 24 93 06/08/21 10:30 68 26 H 163/91 H 91 06/08/21 10:15 67 24 91 06/08/21 10:11 72 23 95 06/08/21 09:45 77 22 93 06/08/21 09:31 78 24 146/73 H 94 06/08/21 09:30 74 22 89 L 06/08/21 09:15 70 22 91 06/08/21 09:00 75 25 H 168/96 H 88 L 06/08/21 08:57 36.8 C 80 20 167/85 H 81 L 06/08/21 08:55 81 22 90 06/08/21 08:54 167/85 H Laboratory Results Abnormal lab results 06/08/21 06/08/21 06/08/21 Range/Units 08:59 08:59 08:59 RBC 3.87 L (4.2-5.4) M/uL Hgb 11.0 L (12.0-16.0) g/dL Hct 35.1 L (37-47) % MCHC 31.3 L (32-36) g/dL RDW Std Deviation 53.9 H (36.4-46.3) fL RDW Coeff of Yanelis 16.4 H (11.5-14.5) % Neut # (Auto) 7.95 H (1.4-6.5) K/uL Lymph # (Auto) 0.68 L (1.2-3.4) K/uL [place] # (Auto) 0.73 H (0.11-0.59) K/uL Immature Gran # (Auto) 0.06 H (0.00-0.02) K/uL BUN 27 H (6-23) mg/dl Creatinine 1.32 H (0.6-1.2) mg/dl BUN/Creatinine Ratio 20.5 H (10-20) Glucose 161 H (70-99(Fasting)) mg/dl AST 73 H (13-39) U/L ALT 61 H (7-52) U/L Troponin I 0.43 H* (0-0.04) ng/ml B-Natriuretic Peptide 1251 H (0-100) pg/ml Globulin 2.4 L (2.5-4.0) gm/dl TSH (0.300-4.500) uIu/ml 06/08/21 Range/Units 08:59 RBC (4.2-5.4) M/uL Hgb (12.0-16.0) g/dL Hct (37-47) % MCHC (32-36) g/dL RDW Std Deviation (36.4-46.3) fL RDW Coeff of Yanelis (11.5-14.5) % Neut # (Auto) (1.4-6.5) K/uL Lymph # (Auto) (1.2-3.4) K/uL [place] # (Auto) (0.11-0.59) K/uL Immature Gran # (Auto) (0.00-0.02) K/uL BUN (6-23) mg/dl Creatinine (0.6-1.2) mg/dl BUN/Creatinine Ratio (10-20) Glucose (70-99(Fasting)) mg/dl AST (13-39) U/L ALT (7-52) U/L Troponin I (0-0.04) ng/ml B-Natriuretic Peptide (0-100) pg/ml Globulin (2.5-4.0) gm/dl TSH 23.470 H (0.300-4.500) uIu/ml Diagnostic Findings CT ANGIOGRAM OF THE CHEST CLINICAL HISTORY: Dyspnea. COMPARISON STUDY: Chest x-ray dated 06/08/2021. Chest CT dated 01/25/2021. TECHNIQUE: Following the IV administration of 120 cc of Optiray 320, CT angiogram of the chest was performed from the upper abdomen to the thoracic inlet utilizing the pulmonary embolus protocol. Images are reviewed in the axial, sagittal, and coronal planes. 3-D MIPS images are created and assessed. IV contrast was administered without complication. A dose lowering technique was utilized adhering to the principles of ALARA. The Examination is significantly degraded by motion artifact. CT DOSE: 375.37 mGy.cm FINDINGS: Thyroid: Imaged portions of the thyroid gland are normal in size and attenuation. Thoracic aorta: There is atherosclerotic calcification of the thoracic aorta, which is normal in caliber and demonstrates standard 3-vessel arch anatomy. The thoracic aorta is not well opacified. Pulmonary vasculature: The pulmonary trunk is dilated, measuring 4.5 cm in diameter. This indicates pulmonary artery hypertension. There are no filling defects identified in main, lobar, or segmental pulmonary branches to suggest pulmonary embolus. Evaluation of the subsegmental branches is degraded by motion artifact. Heart: The heart is markedly enlarged and without pericardial effusion. The coronary arteries and mitral annulus are densely calcified. Lungs and pleural spaces: Evaluation of the lung parenchyma is severely degraded by motion artifact. There are small pleural effusions with dependent scarring/atelectasis. Diffuse intralobular septal thickening is noted. Groundglass opacities are seen throughout both lungs. The trachea and central airways appear clear. Lower neck: There are mildly enlarged supraclavicular lymph nodes which measure up to 1.1 cm in short axis. Mediastinum: Mediastinal lymphadenopathy is similar to previous. Prevascular nodes measure up to 1.8 cm in short axis. Precarinal nodes measure up to 1.5 cm in short axis. High right peritracheal nodes measure up to 1.4 cm in short axis. Daniela: Mildly enlarged hilar nodes measure up to 1.4 cm in short axis. Axillae: There is no axillary lymphadenopathy. Upper abdomen: Partially visualized upper abdominal viscera is grossly unremarkable. There is reflux of contrast in the IVC and hepatic veins suggesting cardiac dysfunction. Skeletal structures: The skeletal structures are osteopenic. Degenerative change and hyperkyphosis is noted throughout the thoracic spine. Advanced arthritic change is seen in the shoulders. No lytic or blastic bony lesions are seen. IMPRESSION: 1. Significantly motion compromised examination. 2. There is no evidence of pulmonary embolus in the main, lobar, or segmental pulmonary arteries. 3. Cardiomegaly with evidence of pulmonary artery hypertension and congestive failure. 4. Groundglass change throughout both lungs likely represents pulmonary edema. Correlate clinically for evidence of a superimposed infectious/inflammatory pneumonitis. 5. Small pleural effusions. 6. Mediastinal, hilar, and supraclavicular lymphadenopathy is nonspecific and similar to previous. XR chest 1V portable CLINICAL HISTORY: Shortness of breath. COMPARISON STUDY: Chest CT January 25, 2021. Chest radiograph May 27, 2021. FINDINGS: 1.3 cm sclerotic lesion within the proximal left humerus is unchanged from earlier exams. This is benign given stability. Mild diffuse sclerosis of visualized skeletal structures is unchanged. No pneumothorax or pleural effusion is noted. Opacity along left heart border likely reflects atelectasis and epicardial fat-pad. Cardiomegaly is unchanged. Mild reticulonodular interstitial thickening is present. IMPRESSION: 1. Mild reticulonodular interstitial thickening. This could reflect mild pulmonary edema or an infectious process. 2. Cardiomegaly. Medications Administered ER Medications Given: Furosemide 40mg IV ECG Rate (beats per minute): 85 Rhythm: normal sinus Findings: + other (presmature SVCs) and + nonspecific-ST abn Comparison ECG Date: from (May 17, 2021) Change: the following changes noted (PSVCs now present) Code Status & VTE Plan Code Status DNR/DNI VTE Prophylaxis Plan VTE Prophylaxis will be ordered: Yes PG Care Time/CCT Total # of Minutes Spent Total Time Spent with Patient: Total time spent is greater than 50% in coordination of care (as documented) at patient's floor/unit and/or counseling patient: Coding Level of Care Code 21818 Initial Inpt Care Lvl 3 Diagnoses Acute and chronic respiratory failure with hypoxia J96.21 Aortic stenosis I35.0 COPD (chronic obstructive pulmonary disease) J44.9 Depression F32.9 Acute on chronic diastolic heart failure I50.33 Stage III chronic kidney disease N18.3 Hypothyroidism E03.9 Hypertension I10 Rheumatoid arthritis M06.9 Paroxysmal supraventricular tachycardia I47.1
[2021-06-08] MEDS ORDERED: ALBUT/IPRATROP 3MG/0.5MG NEB 3 ML VIAL NEB STA (13:46)
[2021-06-08] MEDS ORDERED: TELMISARTAN 40 MG TAB PO STA (13:48)
[2021-06-08] MEDS ORDERED: METOPROLOL SUCC 50MG EXT REL TAB PO STA (13:49)
--- NOTE | 2021-06-08 14:02 | Electrocardiogram Report ---
Test Reason : Blood Pressure : / mmHG Vent. Rate : 085 BPM Atrial Rate : 085 BPM P-R Int : 144 ms QRS Dur : 088 ms QT Int : 400 ms P-R-T Axes : 088 -22 156 degrees QTc Int : 476 ms Sinus rhythm with Premature supraventricular complexes Nonspecific ST and T wave abnormality Lateral leads Prolonged QT Abnormal ECG When compared with ECG of 17-MAY-2021 09:41, Premature supraventricular complexes are now Present Confirmed by Zain Blackburn ([id number]) on 06/08/2021 2:02:24 PM Referred By: Confirmed By:Zain Blackburn
[2021-06-08] MEDS ORDERED: ACETAMINOPHEN 325 MG TAB PO PRN (15:31)
[2021-06-08] MEDS ORDERED: ONDANSETRON INJ 2 MG/ML 2 ML VIAL IV PRN (15:31)
[2021-06-08] MEDS ORDERED: LORazepam 0.5 MG TAB PO PRN (15:31)
[2021-06-08] MEDS: FUROSEMIDE 40 MG/4 ML VIAL IV SCH (16:27)
[2021-06-08] MEDS: ATORVASTATIN 20 MG TAB PO SCH (21:02)
[2021-06-08] MEDS: DOCUSATE SODIUM 100 MG CAP PO SCH (21:02)
[2021-06-08] MEDS: DOXAZosin MESYLATE 4 MG TAB PO SCH (21:02)
[2021-06-08] MEDS: predniSONE 5 MG TAB PO SCH (21:03)
[2021-06-08] MEDS: SERTRALINE HCL 100 MG TABLET PO SCH (21:03)
[2021-06-09] MEDS: LEVOTHYROXINE SODIUM 137 MCG TABLET PO SCH (05:34)
[2021-06-09] MEDS ORDERED: MICONAZOLE NITRATE POWDER 43 GM EXT PRN (06:06)
[2021-06-09 07:42] LABS: Basophils # (auto) 0.04 K/uL (0-0.2); Basophils % (auto) 0.4 %; Eosinophils # (auto) 0.53 K/uL (0-0.5); Eosinophils % (auto) 5.7 %; Hematocrit (blood only) 33.6 % (37-47); Hemoglobin 10.9 g/dL (12.0-16.0); Immature Granulocytes # (auto) 0.07 K/uL (0.00-0.02); Immature Granulocytes % (auto) 0.7 %; Lymphocytes # (auto) 1.42 K/uL (1.2-3.4); Lymphocytes % (auto) 15.2 %; Mean Corpuscular Hemoglobin 29.1 pg (25-34); Mean Corpuscular Hgb Conc 32.4 g/dL (32-36); Mean Corpuscular Volume 89.6 fL (80-100); Mean Platelet Volume 9.1 fL (7.4-10.4); Monocytes # (auto) 0.79 K/uL (0.11-0.59); Monocytes % (auto) 8.5 %; Neutrophils # (auto) 6.49 K/uL (1.4-6.5); Neutrophils % (auto) 69.5 %; Platelet Count 253 K/uL (130-400); RDW Coefficient of Variation 16.1 % (11.5-14.5); RDW Standard Deviation 53.9 fL (36.4-46.3); Red Blood Count 3.75 M/uL (4.2-5.4); White Blood Count 9.34 K/uL (4.8-10.8)
--- NOTE | 2021-06-09 07:52 | Hospitalist Progress Note ---
Date of Service June 09, 2021 Assessment & Plan (1) Acute on chronic diastolic heart failure: Plan: Ruthy Vaughn is an 86-year-old patient with history of chronic diastolic heart failure, COPD, depression/anxiety, stage III CKD, hypothyroidism, hypertension, rheumatoid arthritis, paroxysmal SVT who arrived due to shortness of breath and dizziness for the past few days. Admitted for acute CHF exacerbation. Acute on chronic diastolic heart failure: - Suspect acute exacerbation due to not taking her regular medications in setting of aortic stenosis - Recent TTE with LVEF 65-70%, moderate valvular aortic stenosis [04/08/21], no need to repeat this - Lasix 40mg IV BID - Strict I&Os, daily weights -- so far -2.3L - Low Na, heart healthy diet, will hold off fluid restriction unless intake is high Acute and chronic respiratory failure with hypoxia: - Exacerbation secondary to CHF, with chronic RF likely secondary to COPD - Aim O2 sats > 90% Elevated troponin sec to demand ischemia - Repeat level lowered. - continue diuresis. COPD (chronic obstructive pulmonary disease): - Continue home Incruse Ellipta Depression/anxiety: - Continue sertraline 100mg PO HS Stage III chronic kidney disease: - Cr mildly above baseline, will continue to monitor in the setting of IV diuretics as above. - Suspect from hypervolemic state Hypothyroidism: - TSH 23.47, free T4 1.07 - Unclear if she was taking home meds --continue levothyroxine dose of 137mcg PO daily - Recommend PCP f/u to ensure dosage appropriate Hypertension: - Continue her usual medications with amlodipine, metoprolol, doxazosin and telmisartan in addition to Lasix dosing as above Rheumatoid arthritis: - Continue prednisone 5mg PO BID Paroxysmal supraventricular tachycardia: - Continue metoprolol succinate. Notably last admission patient was taken off diltiazem and started on amlodipine. VTE Prophylaxis - heparin 5000 units BID Diet - heart healthy, low Na Disposition - admit to med/tele CODE STATUS: DNR/DNI (2) Acute and chronic respiratory failure with hypoxia: (3) Atrial fibrillation: (4) Hypertension: (5) Hypothyroidism: (6) Rheumatoid arthritis: (7) Aortic stenosis: (8) Hyperlipidemia: (9) Anxiety: (10) COPD (chronic obstructive pulmonary disease): (11) Depression: (12) Paroxysmal SVT (supraventricular tachycardia): Admission and Anticipated Discharge Date Admission Date: June 08, 2021 Supervising Physician Co-Signing Physician Notes Resident Physician Supervision Note: I independently interviewed and examined the patient and verified the deleon history and physical, reviewed labs and image studies and agree with resident Dr. Quiroz findings and care plan. Subjective Seen at bedside this AM. Reports that she feels much better in terms of her SOB. Also feels her dizziness has improved. Denies CP, palp, abd pain, weakness, numbness, n/v, f/c. Review of Systems Review of Systems: per subjective Physical Exam Physical Exam: GENERAL: A&Ox3. NAD. HEENT: PERRL, EOMI. Moist mucous membranes. NECK: JVD noted on left side. No lymphadenopathy. CHEST/LUNGS: Diminished breath sounds at bases bilaterally. No crackles, wheezes, rales, rhonchi. HEART: RRR. No m/g/r. No carotid bruits. ABDOMEN: NT/ND, soft. BS+ x4. EXTREMITIES: 2+ pitting edema bilateral LE SKIN: Warm and dry. No rashes or lesions. PSYCHIATRIC: Euthymic affect, no SI, no pressured speech, no hallucinations NEUROLOGIC: No FND. CN II-XII grossly intact. Results & Data Results & Data ([facility]) Vital Signs (Past 12 Hours) Vital Signs Temp Pulse Pulse Resp BP BP Pulse Ox 06/09/21 07:23 36.6 C 66 18 160/87 H 90 06/09/21 03:25 36.8 C 65 20 173/83 H 93 06/08/21 22:56 65 06/08/21 22:00 36.8 C 69 20 168/93 H 91 Resident Activity Tracking Resident Involvement: Resident Care Provided Care Provided: Adult Hospital Medicine
[2021-06-09 07:58] LABS: Troponin I 0.29 ng/ml (0-0.04)
[2021-06-09 08:00] LABS: BUN Creatinine Ratio 19.1 (10-20); Calcium 8.9 mg/dl (8.5-10.1); Creatinine Clr Calc Pharmacy 25.7 ml/min; Est GFR (African American) 40.5 ml/min; Est GFR (Non-African American) 34.9 ml/min; Potassium 3.9 mmol/L (3.5-5.1)
[2021-06-09] MEDS: METOPROLOL SUCC 50MG EXT REL TAB PO SCH (08:30)
[2021-06-09] MEDS: amLODIPine BESYLATE 5 MG TAB PO SCH (08:31)
[2021-06-09] MEDS: ASPIRIN 81 MG ECTAB PO SCH (08:31)
[2021-06-09] MEDS: CEROVITE ADV FORMULA TAB PO SCH (08:31)
[2021-06-09] MEDS: CHOLECALCIFEROL 1,000 UNITS 25 MCG TAB PO SCH (08:31)
[2021-06-09] MEDS: OMEGA-3 (PURIFIED FISH OIL) 1 GM CAP PO SCH (08:32)
[2021-06-09] MEDS: DOXAZosin MESYLATE 4 MG TAB PO SCH ×2 (08:32→21:06)
[2021-06-09] MEDS: TELMISARTAN 40 MG TAB PO SCH (08:32)
[2021-06-09] MEDS: predniSONE 5 MG TAB PO SCH ×2 (08:32→21:07)
[2021-06-09] MEDS: FUROSEMIDE 40 MG/4 ML VIAL IV SCH ×2 (08:33→17:49)
[2021-06-09] MEDS: UMECLIDINIUM BROMIDE 62.5MCG/BLISTER 7 PUFFS/INHALER INH SCH (08:34)
[2021-06-09] MEDS: DOCUSATE SODIUM 100 MG CAP PO SCH (21:06)
[2021-06-09] MEDS: HEPARIN SOD 5,000 UNIT/0.5 ML VIAL SQ SCH (21:06)
[2021-06-09] MEDS: ATORVASTATIN 20 MG TAB PO SCH (21:07)
[2021-06-09] MEDS: SERTRALINE HCL 100 MG TABLET PO SCH (21:07)
[2021-06-10] MEDS: LEVOTHYROXINE SODIUM 137 MCG TABLET PO SCH (05:32)
[2021-06-10 08:42] LABS: Hematocrit (blood only) 37.9 % (37-47); Hemoglobin 12.2 g/dL (12.0-16.0); Mean Corpuscular Hemoglobin 28.8 pg (25-34); Mean Corpuscular Hgb Conc 32.2 g/dL (32-36); Mean Corpuscular Volume 89.4 fL (80-100); Mean Platelet Volume 8.8 fL (7.4-10.4); Platelet Count 281 K/uL (130-400); Red Blood Count 4.24 M/uL (4.2-5.4)
[2021-06-10] MEDS: CHOLECALCIFEROL 1,000 UNITS 25 MCG TAB PO SCH (08:45)
[2021-06-10] MEDS: METOPROLOL SUCC 50MG EXT REL TAB PO SCH (08:45)
[2021-06-10] MEDS: TELMISARTAN 40 MG TAB PO SCH (08:46)
[2021-06-10] MEDS: ASPIRIN 81 MG ECTAB PO SCH (08:46)
[2021-06-10] MEDS: CEROVITE ADV FORMULA TAB PO SCH (08:46)
[2021-06-10] MEDS: amLODIPine BESYLATE 5 MG TAB PO SCH (08:47)
[2021-06-10] MEDS: predniSONE 5 MG TAB PO SCH ×2 (08:47→21:36)
[2021-06-10] MEDS: DOXAZosin MESYLATE 4 MG TAB PO SCH ×2 (08:47→21:36)
[2021-06-10] MEDS: OMEGA-3 (PURIFIED FISH OIL) 1 GM CAP PO SCH (08:47)
[2021-06-10] MEDS: HEPARIN SOD 5,000 UNIT/0.5 ML VIAL SQ SCH ×2 (08:48→21:37)
[2021-06-10] MEDS: FUROSEMIDE 40 MG/4 ML VIAL IV SCH (08:49)
[2021-06-10] MEDS: UMECLIDINIUM BROMIDE 62.5MCG/BLISTER 7 PUFFS/INHALER INH SCH (08:50)
[2021-06-10 09:09] LABS: BUN Creatinine Ratio 22.7 (10-20); Calcium 9.1 mg/dl (8.5-10.1); Creatinine Clr Calc Pharmacy 24.7 ml/min; Est GFR (African American) 38.7 ml/min; Est GFR (Non-African American) 33.4 ml/min; Potassium 3.7 mmol/L (3.5-5.1)
--- NOTE | 2021-06-10 11:36 | Discharge Summary ---
Date of Service June 10, 2021 Admission HPI Per Admitting Provider Ruthy Vaughn is an 86 year old female with COPD dependant on home O2 2LPM who presents to the ER with hypoxia. Per daughter at bedside she getting slightly more short of breath starting yesterday and appeared to be more lethargic. Today she appeared to be more short of breath over the phone. Her daughter came to her house and noticed the patient was in the bedroom not wearing her oxygen which was in the kitchen. She put the patient on oxygen and turned it up and called for an ambulance. She has also noticed the patient has not been taking her medications routinely as some medications in her pill box have not been taken and the number on her inhalers has not been counting down. Unable to get much history from patient directly, but she currently denies any chest pain or shortness of breath at rest. In the ER CXR and CT chest concerning for pulmonary edema. She is currently requiring 10LPM O2 via oxymask to maintain O2 sats > 90%. She was diagnosed with CHF and treated with Lasix 40mg IV. She was referred to medicine for admission and ongoing management of pulmonary edema. Discharge Data Allergies Allergy/AdvReac Type Severity Reaction Status Date / Time bee venom protein (honey bee) Allergy Intermediate HIVES Verified 06/08/21 09:44 oxycodone Allergy Unknown Unknown Verified 06/08/21 09:44 Sulfa (Sulfonamide Allergy Unknown MOUTH Verified 06/08/21 09:44 Antibiotics) SWELLED/HIVES TO SULFA DRUGS gabapentin Allergy Rash Verified 06/08/21 09:44 nitrofurantoin AdvReac Severe CAUSES Verified 06/08/21 09:44 HEPATITUS hydromorphone AdvReac Intermediate HALLUCINATI Verified 06/08/21 09:44 ONS Consultations 06/08/21 12:32 ED Decision to Admit Stat Ordered Studies 06/08/21 09:45 CT angio chest PE protocol Stat Discharge Plan Discharge Items Patient Disposition: Home - Self-Care Reason For Visit: ACUTE RESPIRATORY FAILURE WITH HYPOXIA Discharge Diagnosis: Acute CHF exacerbation Activity: Per Instructions section Non-emergency contact: Primary Care Provider and Safety Advisor Call non-emergency contact if: you have any medication questions Follow-up/Referrals: Amador Coleman MD [Primary Care Provider] - Diet: Heart Healthy and Low Sodium (2gm) Addtl Attending Provider Instructions: You were admitted to [facility] due to shortness of breath and dizziness. You were found to have an acute CHF exacerbation due to missing doses of your regularly scheduled home diuretic. As such, you were given IV diuretics for 2 days and diuresed adequately. You remained on your home oxygen requirements with no significant decreases in oxygen. At home, please continue to follow a low-sodium diet and take your medications as prescribed. We recommend that you follow with your primary care provider and/or middle school reading teacher for discussion of your hospitalization and continued care going forward. If you develop any severe symptoms such as chest pain, palpitations, significant shortness of breath, fever, chills, significant weight gain, or any other concerning symptoms please return to the hospital for reevaluation. Pending Studies at Discharge: No Stand-Alone Forms: My [facility], Smoking Cessation Medications and DC Order Prescriptions: Continued metoprolol succinate 100 mg tablet extended release 24 hr 100 mg PO QAM Qty: 90 RF: 3 telmisartan 80 mg tablet 80 mg PO QAM Qty: 90 RF: 3 atorvastatin 20 mg tablet 20 mg PO HS Qty: 90 RF: 3 furosemide [Lasix] 20 mg tablet 20 mg PO QAM PRN (Reason: weight gain) Qty: 270 RF: 1 sertraline 100 mg tablet 100 mg PO PM Qty: 90 RF: 3 lorazepam 0.5 mg tablet 0.5 mg PO BID PRN (Reason: anxiety) Qty: 180 RF: 0 (DME) Oxygen Home Liters Per Minute See Dose Instructions .ROUTE .MEDSUPPLY Qty: 1 RF: 0 prevagen Extra strength 1 tab PO QAM RF: 0 (DME) Oxygen Home Liters Per Minute See Rx Instructions .MEDSUPPLY Qty: 1 RF: 0 (DME) Flutter Valve Device See Rx Instructions .ROUTE .MEDSUPPLY Qty: 1 RF: 0 cholecalciferol (vitamin D3) [Vitamin D3] 1,000 unit Tablet 1,000 unit PO QAM RF: 0 PreserVision AREDS [id number] Tablet 1 tab PO BID RF: 0 docusate sodium 100 mg capsule 300 mg PO HS RF: 0 vitamin E 1,000 unit Capsule 1,000 unit PO QAM RF: 0 Thera Cran 1 dose PO QAM RF: 0 aspirin 81 mg Tablet,Delayed Release (Dr/Ec) 81 mg PO QAM RF: 0 Centrum Silver 0.4-300-250 mg-mcg-mcg Tablet 1 tab PO QAM RF: 0 omega 8-dia-api-fish oil [Fish Oil] 1,000 mg (120 mg-180 mg) Capsule 1 cap PO QAM RF: 0 ascorbic acid (vitamin C) 500 mg Capsule 500 mg PO QAM RF: 0 Incruse Ellipta 62.5 mcg/actuation Blister With Device 1 puff inhalation DAILY Qty: 1 RF: 3 (DME) Oxygen Home Liters Per Minute See Rx Instructions .Route Qty: 4 RF: 0 levalbuterol HCl 1.25 mg/3 mL Solution For Nebulization 1.25 mg INHALATION Q4 PRN (Reason: Shortness Of Breath) Qty: 90 RF: 5 prednisone 5 mg tablet 5 mg PO BID RF: 0 cyanocobalamin (vitamin B-12) [Vitamin B-12] 1,000 mcg Tablet 0 mcg PO QAM RF: 0 levothyroxine 137 mcg tablet 137 mcg PO DAILYBB RF: 0 amlodipine 5 mg tablet 5 mg PO QAM RF: 0 doxazosin [Cardura] 4 mg tablet 4 mg PO BID RF: 0 albuterol sulfate [Ventolin HFA] 90 mcg/actuation HFA aerosol inhaler 2 inh inhalation Q4H PRN (Reason: Shortness Of Breath) RF: 0 Admission Data Admit Date/Time: 06/08/21 12:06 Attending Provider: Meaghan Sorenson Admit Provider: Rafael Ibrahim Primary Care Provider: Amador Coleman Other Providers: Rafael Ibrahim
--- NOTE | 2021-06-10 15:05 | Hospitalist Progress Note ---
Date of Service June 10, 2021 Assessment & Plan (1) Acute on chronic diastolic heart failure: Plan: Ruthy Vaughn is an 86-year-old patient with history of chronic diastolic heart failure, COPD, depression/anxiety, stage III CKD, hypothyroidism, hypertension, rheumatoid arthritis, paroxysmal SVT who arrived due to shortness of breath and dizziness for the past few days. Admitted for acute CHF exacerbation. Acute on chronic diastolic heart failure: - Suspect acute exacerbation due to not taking her regular medications in setting of aortic stenosis - Recent TTE with LVEF 65-70%, moderate valvular aortic stenosis [04/08/21], no need to repeat this - Considering rise in creatinine in setting of limited renal function from nephrectomy- hold lasix and follow bmp - Strict I&Os, daily weights -- so far -2.2L - Low Na, heart healthy diet, will hold off fluid restriction unless intake is high Acute and chronic respiratory failure with hypoxia: - Exacerbation secondary to CHF, with chronic RF likely secondary to COPD - Aim O2 sats > 90% - Back to baseline oxygen supplementation from home Mild generalized weakness - Family concern of ability to ambulate and care for self at home - PT/OT consulted with recommendation for inpatient rehab - CM made aware and will be working on placement - Continue to work with PT as able in hospital - Also d/w family the concern that she has not been taking meds as prescribed and this possibly caused some of her current issues - Case management working on DC needs assessment and plans of care after hospital DC/transfer to inpt rehab Elevated troponin sec to demand ischemia - Repeat level lowered - continue diuresis Stage III chronic kidney disease: h/o left radical and right partial nephrectomy - Cr mildly above baseline, - Considering limited renal function d/t h/o nephrectomy - will hold IV diuretics in am - Monitor daily BMP Hypothyroidism: - TSH 23.47, free T4 1.07 - Unclear if she was taking home meds --continue levothyroxine dose of 137mcg PO daily - Recommend PCP f/u to ensure dosage appropriate - Discussed with family that she may need home supervision/help to ensure she is taking meds appropriately Hypertension: - Continue her usual medications with amlodipine, metoprolol, doxazosin and telmisartan in addition to Lasix dosing as above COPD (chronic obstructive pulmonary disease): - Continue home Incruse Ellipta Depression/anxiety: - Continue sertraline 100mg PO HS Rheumatoid arthritis: - Continue prednisone 5mg PO BID Paroxysmal supraventricular tachycardia: - Continue metoprolol succinate. Notably last admission patient was taken off diltiazem and started on amlodipine. VTE Prophylaxis - heparin 5000 units BID Diet - heart healthy, low Na Disposition - [facility] CM working on rehab placement CODE STATUS: DNR/DNI (2) Acute and chronic respiratory failure with hypoxia: (3) Atrial fibrillation: (4) Hypertension: (5) Hypothyroidism: (6) Rheumatoid arthritis: (7) Aortic stenosis: (8) Hyperlipidemia: (9) Anxiety: (10) COPD (chronic obstructive pulmonary disease): (11) Depression: (12) Paroxysmal SVT (supraventricular tachycardia): Admission and Anticipated Discharge Date Admission Date: June 08, 2021 Supervising Physician Co-Signing Physician Notes Resident Physician Supervision Note: I independently interviewed and examined the patient and verified the deleon history and physical, reviewed labs and image studies and agree with resident Dr. Quiroz findings and care plan. Subjective Seen at bedside this AM. She feels reasonably well and expresses her breathing status is back to baseline. Does not feel more SOB than usual and denies CP, palp, abd pain, f/c, n/v. Has continued to diurese adequately. Review of Systems Review of Systems: per subjective Physical Exam Physical Exam: GENERAL: A&Ox3. NAD. HEENT: PERRL, EOMI. Moist mucous membranes. NECK: No JVD. No lymphadenopathy. CHEST/LUNGS: Diminished breath sounds at bases bilaterally. No crackles, wheezes, rales, rhonchi. HEART: RRR. No m/g/r. No carotid bruits. ABDOMEN: NT/ND, soft. BS+ x4. EXTREMITIES: 1+ pitting edema bilateral LE SKIN: Warm and dry. No rashes or lesions. PSYCHIATRIC: Euthymic affect, no SI, no pressured speech, no hallucinations NEUROLOGIC: No FND. CN II-XII grossly intact. Results & Data Results & Data ([facility]) Vital Signs (Past 12 Hours) Vital Signs Temp Pulse Pulse Resp BP Pulse Ox Pulse Ox 06/10/21 12:00 37.1 C 60 20 130/74 95 06/10/21 11:23 90 06/10/21 08:32 36.7 C 64 16 148/79 H 06/10/21 07:40 79 06/10/21 03:44 36.5 C 62 18 129/74 92 Resident Activity Tracking Resident Involvement: Resident Care Provided Care Provided: Adult Hospital Medicine
[2021-06-10] MEDS: DOCUSATE SODIUM 100 MG CAP PO SCH (21:36)
[2021-06-10] MEDS: ATORVASTATIN 20 MG TAB PO SCH (21:36)
[2021-06-10] MEDS: SERTRALINE HCL 100 MG TABLET PO SCH (21:36)
[2021-06-11 05:47] LABS: Basophils # (auto) 0.04 K/uL (0-0.2); Basophils % (auto) 0.5 %; Eosinophils # (auto) 0.45 K/uL (0-0.5); Eosinophils % (auto) 5.4 %; Hematocrit (blood only) 36.8 % (37-47); Hemoglobin 11.7 g/dL (12.0-16.0); Immature Granulocytes # (auto) 0.07 K/uL (0.00-0.02); Immature Granulocytes % (auto) 0.8 %; Lymphocytes # (auto) 1.35 K/uL (1.2-3.4); Lymphocytes % (auto) 16.3 %; Mean Corpuscular Hgb Conc 31.8 g/dL (32-36); Mean Corpuscular Volume 91.3 fL (80-100); Mean Platelet Volume 9.1 fL (7.4-10.4); Monocytes # (auto) 0.81 K/uL (0.11-0.59); Monocytes % (auto) 9.8 %; Neutrophils # (auto) 5.55 K/uL (1.4-6.5); Neutrophils % (auto) 67.2 %; Platelet Count 299 K/uL (130-400); RDW Coefficient of Variation 15.8 % (11.5-14.5); Red Blood Count 4.03 M/uL (4.2-5.4); White Blood Count 8.27 K/uL (4.8-10.8)
[2021-06-11 06:17] LABS: BUN Creatinine Ratio 22.5 (10-20); Creatinine Clr Calc Pharmacy 23.1 ml/min; Est GFR (African American) 35.6 ml/min; Est GFR (Non-African American) 30.8 ml/min; Magnesium 1.7 mg/dl (1.7-2.4); Potassium 3.8 mmol/L (3.5-5.1)
[2021-06-11] MEDS: LEVOTHYROXINE SODIUM 137 MCG TABLET PO SCH (06:19)
[2021-06-11] MEDS: predniSONE 5 MG TAB PO SCH (09:06)
[2021-06-11] MEDS: ASPIRIN 81 MG ECTAB PO SCH (09:06)
[2021-06-11] MEDS: DOXAZosin MESYLATE 4 MG TAB PO SCH (09:06)
[2021-06-11] MEDS: METOPROLOL SUCC 50MG EXT REL TAB PO SCH (09:06)
[2021-06-11] MEDS: OMEGA-3 (PURIFIED FISH OIL) 1 GM CAP PO SCH (09:06)
[2021-06-11] MEDS: TELMISARTAN 40 MG TAB PO SCH (09:06)
[2021-06-11] MEDS: CEROVITE ADV FORMULA TAB PO SCH (09:07)
[2021-06-11] MEDS: CHOLECALCIFEROL 1,000 UNITS 25 MCG TAB PO SCH (09:07)
[2021-06-11] MEDS: HEPARIN SOD 5,000 UNIT/0.5 ML VIAL SQ SCH (09:10)
[2021-06-11] MEDS: UMECLIDINIUM BROMIDE 62.5MCG/BLISTER 7 PUFFS/INHALER INH SCH (09:10)
[2021-06-11] MEDS: amLODIPine BESYLATE 5 MG TAB PO SCH (09:19)
[2021-06-11 11:32] LABS: BUN Creatinine Ratio 23.8 (10-20); Creatinine Clr Calc Pharmacy 24.6 ml/min; Est GFR (African American) 38.1 ml/min; Est GFR (Non-African American) 32.8 ml/min; Potassium 3.5 mmol/L (3.5-5.1)
--- NOTE | 2021-06-11 16:45 | Discharge Summary ---
Date of Service June 11, 2021 Admission HPI Per Admitting Provider Ruthy Vaughn is an 86 year old female with COPD dependant on home O2 2LPM who presents to the ER with hypoxia. Per daughter at bedside she getting slightly more short of breath starting yesterday and appeared to be more lethargic. Today she appeared to be more short of breath over the phone. Her daughter came to her house and noticed the patient was in the bedroom not wearing her oxygen which was in the kitchen. She put the patient on oxygen and turned it up and called for an ambulance. She has also noticed the patient has not been taking her medications routinely as some medications in her pill box have not been taken and the number on her inhalers has not been counting down. Unable to get much history from patient directly, but she currently denies any chest pain or shortness of breath at rest. In the ER CXR and CT chest concerning for pulmonary edema. She is currently requiring 10LPM O2 via oxymask to maintain O2 sats > 90%. She was diagnosed with CHF and treated with Lasix 40mg IV. She was referred to medicine for admission and ongoing management of pulmonary edema. Admission Exam Per Admitting Provider Constitutional: WD/WN, vitals as above no acute distress Eyes: + anicteric sclerae; normal pupil size ENMT: external ear and nose normal, oropharynx normal Respiratory: + respiratory distress, + uses accessory muscles and able to speak in complete sentences Auscultation: + crackles (bibasal) and + wheezes (posterior on expiration only); no diminished lung sounds, no rales and no rhonchi Cardiovascular: Rate/Rhythm: regular rate and regular rhythm Heart Sounds: + murmur (ASHLEIGH loudest in LUSB) Extremities: normal capillary refill and + pedal edema (2+ pitting equal b/l); no calf tenderness Gastrointestinal (Abdomen): Inspection/Auscultation: normal bowel sounds Percussion/Palpation: abdomen soft; abdomen nontender, no guarding and abdomen not rigid Musculoskeletal: no cyanosis or clubbing, extremities motor strength 5/5 Skin: no rashes, warm and dry Neurologic: moves all extremities and awake; not confused Psychiatric: Orientation: alert, oriented to person and oriented to place; + not oriented to time Genitourinary: no CVA tenderness Principal Diagnosis Acute heart failure exacerbation Discharge Exam Constitutional WD/WN, vitals as above Eyes PERRL, conjunctivae normal, anicteric sclerae ENMT external ear and nose normal, oropharynx normal Neck normal visual inspection Respiratory normal respiratory effort, lungs clear to auscultation Cardiovascular RRR, no murmur, no edema Gastrointestinal (Abdomen) normal bowel sounds, soft, nontender, no hepatosplenomegaly Skin no rashes, warm and dry Neurologic no focal motor deficits Psychiatric A+Ox3, euthymic affect Discharge Data Allergies Allergy/AdvReac Type Severity Reaction Status Date / Time bee venom protein (honey bee) Allergy Intermediate HIVES Verified 06/08/21 09:44 oxycodone Allergy Unknown Unknown Verified 06/08/21 09:44 Sulfa (Sulfonamide Allergy Unknown MOUTH Verified 06/08/21 09:44 Antibiotics) SWELLED/HIVES TO SULFA DRUGS gabapentin Allergy Rash Verified 06/08/21 09:44 nitrofurantoin AdvReac Severe CAUSES Verified 06/08/21 09:44 HEPATITUS hydromorphone AdvReac Intermediate HALLUCINATI Verified 06/08/21 09:44 ONS Consultations 06/08/21 12:32 ED Decision to Admit Stat Ordered Studies 06/08/21 09:45 CT angio chest PE protocol Stat Hospital Course (1) Diastolic heart failure: Ruthy Vaughn is an 86-year-old patient with history of chronic diastolic heart failure, COPD, depression/anxiety, stage III CKD, hypothyroidism, hypertension, rheumatoid arthritis, paroxysmal SVT who arrived due to shortness of breath and dizziness for the past few days. Admitted for acute CHF exacerbation. Acute on chronic diastolic heart failure: - Suspect acute exacerbation due to not taking her regular medications in setting of aortic stenosis - Recent TTE with LVEF 65-70%, moderate valvular aortic stenosis [04/08/21] - elevated creatinine in setting of limited renal function from nephrectomy - hold Lasix on discharge and restart based on fluid status - Low Na, heart healthy diet, hold off fluid restriction unless intake is high Acute on chronic respiratory failure with hypoxia: - Exacerbation secondary to CHF, with chronic RF likely secondary to COPD - Aim O2 sats > 90% - Back to baseline oxygen supplementation from home Mild generalized weakness - Family concern of ability to ambulate and care for self at home - continue to work with PT and OT at rehab Elevated troponin sec to demand ischemia - Repeat level lowered Stage III chronic kidney disease: h/o left radical and right partial nephrectomy - Cr. mildly above baseline, stabilized prior to discharge - Considering limited renal function d/t h/o nephrectomy - will hold diuretic and restart based on fluid status - follow BMP Hypothyroidism: - TSH 23.47, free T4 1.07 - continue levothyroxine dose of 137mcg PO daily - Recommend PCP f/u to ensure dosage appropriate - Discussed with family that she may need home supervision/help to ensure she is taking meds appropriately Hypertension: - Continue her usual medications with amlodipine, metoprolol, doxazosin and telmisartan in addition to Lasix dosing as above COPD (chronic obstructive pulmonary disease): - Continue home Incruse Ellipta Depression/anxiety: - Continue sertraline 100mg PO HS Rheumatoid arthritis: - Continue prednisone 5mg PO BID Paroxysmal supraventricular tachycardia: - Continue metoprolol succinate. Notably last admission patient was taken off diltiazem and started on amlodipine. VTE Prophylaxis - heparin 5000 units BID Diet - heart healthy, low Na CODE STATUS: DNR/DNI (2) COPD (chronic obstructive pulmonary disease): (3) Paroxysmal SVT (supraventricular tachycardia): (4) Anxiety: (5) Weakness: (6) Hypoxia: Total Time Total Time Spent Total Time Spent (In Minutes): see attending attestation Discharge Plan Discharge Items Patient Disposition: Transfer Inpatient Rehab Fac Reason For Visit: ACUTE RESPIRATORY FAILURE WITH HYPOXIA Discharge Diagnosis: Acute CHF exacerbation Activity: Per Instructions section Non-emergency contact: Primary Care Provider and [employer] Manager Call non-emergency contact if: you have any medication questions Follow-up/Referrals: Amador Coleman MD [Primary Care Provider] - Diet: Heart Healthy and Low Sodium (2gm) Addtl Attending Provider Instructions: [facility] Ruthy Vaughn is an 86-year-old patient with history of chronic diastolic heart failure, COPD, depression/anxiety, stage III CKD, hypothyroidism, hypertension, rheumatoid arthritis, paroxysmal SVT who arrived due to shortness of breath and dizziness for the past few days. Admitted for acute CHF exacerbation. Acute on chronic diastolic heart failure: - Suspect acute exacerbation due to not taking her regular medications in setting of aortic stenosis - Recent TTE with LVEF 65-70%, moderate valvular aortic stenosis [04/08/21] - elevated creatinine in setting of limited renal function from nephrectomy - hold Lasix and restart based on fluid status - Low Na, heart healthy diet, hold off fluid restriction unless intake is high Acute on chronic respiratory failure with hypoxia: - Exacerbation secondary to CHF, with chronic RF likely secondary to COPD - Aim O2 sats > 90% - Back to baseline oxygen supplementation from home Mild generalized weakness - Family concern of ability to ambulate and care for self at home - continue to work with PT and OT at rehab Elevated troponin sec to demand ischemia - Repeat level lowered Stage III chronic kidney disease: h/o left radical and right partial nephrectomy - Cr mildly above baseline, stabilized prior to discharge - Considering limited renal function d/t h/o nephrectomy - will hold diuretic and restart based on fluid status - follow BMP Hypothyroidism: - TSH 23.47, free T4 1.07 - continue levothyroxine dose of 137mcg PO daily - Recommend PCP f/u to ensure dosage appropriate - Discussed with family that she may need home supervision/help to ensure she is taking meds appropriately Hypertension: - Continue her usual medications with amlodipine, metoprolol, doxazosin and telmisartan in addition to Lasix dosing as above COPD (chronic obstructive pulmonary disease): - Continue home Incruse Ellipta Depression/anxiety: - Continue sertraline 100mg PO HS Rheumatoid arthritis: - Continue prednisone 5mg PO BID Paroxysmal supraventricular tachycardia: - Continue metoprolol succinate. Notably last admission patient was taken off diltiazem and started on amlodipine. VTE Prophylaxis - heparin 5000 units BID Diet - heart healthy, low Na CODE STATUS: DNR/DNI PATIENT You were admitted to [facility] due to shortness of breath and dizziness. You were found to have an acute CHF exacerbation due to missing doses of your regularly scheduled home diuretic. As such, you were given IV diuretics for 2 days and diuresed adequately. You remained on your home oxygen requirements with no significant decreases in oxygen. At home, please continue to follow a low-sodium diet and take your medications as prescribed. We recommend that you follow with your primary care provider and/or size maker for discussion of your hospitalization and continued care going forward. If you develop any severe symptoms such as chest pain, palpitations, significant shortness of breath, fever, chills, significant weight gain, or any other concerning symptoms please return to the hospital for reevaluation. Pending Studies at Discharge: No Stand-Alone Forms: [facility], Smoking Cessation Skilled Items Patient informed of condition?: Yes DNR: Yes Discharge Level of Care: Acute rehab Communicable Disease: No Discharge Prognosis: Stable Lines: None Urinary Catheter: No Medications and DC Order Prescriptions: Continued metoprolol succinate 100 mg tablet extended release 24 hr 100 mg PO QAM Qty: 90 RF: 3 telmisartan 80 mg tablet 80 mg PO QAM Qty: 90 RF: 3 atorvastatin 20 mg tablet 20 mg PO HS Qty: 90 RF: 3 furosemide [Lasix] 20 mg tablet 20 mg PO QAM PRN (Reason: weight gain) Qty: 270 RF: 1 sertraline 100 mg tablet 100 mg PO PM Qty: 90 RF: 3 lorazepam 0.5 mg tablet 0.5 mg PO BID PRN (Reason: anxiety) Qty: 180 RF: 0 (DME) Oxygen Home Liters Per Minute See Dose Instructions .ROUTE .MEDSUPPLY Qty: 1 RF: 0 prevagen Extra strength 1 tab PO QAM RF: 0 (DME) Oxygen Home Liters Per Minute See Rx Instructions .MEDSUPPLY Qty: 1 RF: 0 (DME) Flutter Valve Device See Rx Instructions .ROUTE .MEDSUPPLY Qty: 1 RF: 0 cholecalciferol (vitamin D3) [Vitamin D3] 1,000 unit Tablet 1,000 unit PO QAM RF: 0 PreserVision AREDS [id number] Tablet 1 tab PO BID RF: 0 docusate sodium 100 mg capsule 300 mg PO HS RF: 0 vitamin E 1,000 unit Capsule 1,000 unit PO QAM RF: 0 Thera Cran 1 dose PO QAM RF: 0 aspirin 81 mg Tablet,Delayed Release (Dr/Ec) 81 mg PO QAM RF: 0 Centrum Silver 0.4-300-250 mg-mcg-mcg Tablet 1 tab PO QAM RF: 0 omega [id number] oil [Fish Oil] 1,000 mg (120 mg-180 mg) Capsule 1 cap PO QAM RF: 0 ascorbic acid (vitamin C) 500 mg Capsule 500 mg PO QAM RF: 0 Incruse Ellipta 62.5 mcg/actuation Blister With Device 1 puff inhalation DAILY Qty: 1 RF: 3 (DME) Oxygen Home Liters Per Minute See Rx Instructions .Route Qty: 4 RF: 0 levalbuterol HCl 1.25 mg/3 mL Solution For Nebulization 1.25 mg INHALATION Q4 PRN (Reason: Shortness Of Breath) Qty: 90 RF: 5 prednisone 5 mg tablet 5 mg PO BID RF: 0 cyanocobalamin (vitamin B-12) [Vitamin B-12] 1,000 mcg Tablet 0 mcg PO QAM RF: 0 levothyroxine 137 mcg tablet 137 mcg PO DAILYBB RF: 0 amlodipine 5 mg tablet 5 mg PO QAM RF: 0 doxazosin [Cardura] 4 mg tablet 4 mg PO BID RF: 0 albuterol sulfate [Ventolin HFA] 90 mcg/actuation HFA aerosol inhaler 2 inh inhalation Q4H PRN (Reason: Shortness Of Breath) RF: 0 Discharge Orders: Discharge Order (Routine); Ordered 06/11/21 Ordered By: Navin Reyes Admission Data Admit Date/Time: 06/08/21 12:06 Attending Provider: Meaghan Sorenson Admit Provider: Rafael Ibrahim Primary Care Provider: Amador Coleman Other Providers: Rafael Ibrahim ; [facility] Other Interventions: Discharge Summary Assessment (RN) Last Done: 06/11/21 12:02 Supervising Physician Co-Signing Physician Notes Resident Physician Supervision Note: I independently interviewed and examined the patient and verified the deleon history and physical, reviewed labs and image studies and agree with resident Dr. Reyes findings and care plan. Resident Activity Tracking Resident Involvement: Resident Care Provided Care Provided: Adult Hospital Medicine CBC Results Results Complete Blood Count Results: RBC 4.03 M/uL (4.2-5.4) L 06/11/21 WBC 8.27 K/uL (4.8-10.8) 06/11/21 Hgb 11.7 g/dL (12.0-16.0) L 06/11/21 Hct 36.8 % (37-47) L 06/11/21 Plt Count 299 K/uL (130-400) 06/11/21 Chemistry (BMP) Results BMP Results: Sodium 140 mmol/L (136-145) 06/11/21 Potassium 3.5 mmol/L (3.5-5.1) 06/11/21 Chloride 99 mmol/L (98-107) 06/11/21 Carbon Dioxide 34 mmol/L (21-32) H 06/11/21 Anion Gap 7 (3-11) 06/11/21 BUN 34 mg/dl (6-23) H 06/11/21 Creatinine 1.43 mg/dl (0.6-1.2) H 06/11/21 Glucose 106 mg/dl (70-99(Fasting)) H 06/11/21
== END 2021-06-11 13:07 | DRG 291 ==
LOC: ED 08:45 → 2W 12:06 → SUATTDRO 12:06 → 2W 14:39

== ENCOUNTER 2021-06-17 20:11 | Inpatient (IN) ==
--- NOTE | 2021-06-17 21:08 | Emergency Department Note ---
History of Present Illness General Chief complaint: Fall Stated complaint: hit head Time Seen by Provider: 06/17/21 21:01 History of Present Illness Maximum Pain Intensity: 1 This is an 86-year-old female that presents to the emergency department via EMS for evaluation of injury status post fall. Patient notes that earlier today she was moving and she tripped on her oxygen tubing lines causing her to fall. She struck the back area of her head. No loss of consciousness. She was [facility] and then brought here via EMS for evaluation. Patient denies any pain at the present time. She notes only discomfort when she touches the back of her head where she feels some swelling. She notes that she is currently on heparin. Patient denies loss of consciousness. No headache. No chest pain or shortness of breath. Home Medications Medication Instructions Recorded Confirmed Type ascorbic acid (vitamin C) 500 mg 500 mg PO QAM 02/08/18 06/18/21 History capsule aspirin 81 mg tablet,delayed 81 mg PO QAM 02/08/18 06/18/21 History release cholecalciferol (vitamin D3) 25 1,000 unit PO QAM 02/08/18 06/18/21 History mcg (1,000 unit) tablet (Vitamin D3) omega [id number]-fish oil 1,000 mg 1 cap PO QAM 02/08/18 06/18/21 History (120 mg-180 mg) capsule (Fish Oil) Oxygen Home #1 ea 10/19/18 05/28/21 Rx docusate sodium 100 mg capsule 100 mg PO BID cap 05/13/19 06/18/21 History metoprolol succinate 100 mg 100 mg PO QAM #90 tab 03/12/20 06/18/21 Rx tablet,extended release 24 hr atorvastatin 20 mg tablet 20 mg PO HS #90 tab 11/03/20 06/18/21 Rx furosemide 20 mg tablet (Lasix) 20 mg PO QAM PRN #270 tab 12/25/20 06/18/21 Rx sertraline 100 mg tablet 100 mg PO PM #90 tab 01/05/21 06/18/21 Rx Flutter Valve #1 ea 02/03/21 05/28/21 Rx Oxygen Home #1 ea 02/03/21 05/28/21 Rx lorazepam 0.5 mg tablet 0.5 mg PO BID PRN #180 tab 03/03/21 06/18/21 Rx Oxygen Home #4 l 05/18/21 05/28/21 Rx umeclidinium 62.5 mcg/actuation 1 puff INHALATION DAILY #1 inh 05/18/21 06/18/21 Rx blister powder for inhalation (Incruse Ellipta) albuterol sulfate 90 mcg/actuation 2 inh INHALATION Q4H PRN 06/08/21 06/18/21 History aerosol inhaler (Ventolin HFA) amlodipine 5 mg tablet 5 mg PO QAM 06/08/21 06/18/21 History doxazosin 4 mg tablet (Cardura) 4 mg PO Q12 06/08/21 06/18/21 History levothyroxine 137 mcg tablet 137 mcg PO DAILYBB 06/08/21 06/18/21 History prednisone 5 mg tablet 5 mg PO BID 06/08/21 06/18/21 History heparin (bovine) 5,000 unit/mL 5,000 unit Q12 06/18/21 06/18/21 History injection solution losartan 100 mg tablet 100 mg PO DAILY 06/18/21 06/18/21 History vitamin A-vitamin C-vit E-min 1 tab PO BID 06/18/21 06/18/21 History tablet vitamin E (dl, acetate) 180 mg 360 mg PO DAILY 06/18/21 06/18/21 History (400 unit) capsule Allergies Allergy/AdvReac Type Severity Reaction Status Date / Time bee venom protein (honey bee) Allergy Intermediate HIVES Verified 06/18/21 01:06 oxycodone Allergy Unknown Unknown Verified 06/18/21 01:06 Sulfa (Sulfonamide Allergy Unknown MOUTH Verified 06/18/21 01:06 Antibiotics) SWELLED/HIVES TO SULFA DRUGS gabapentin Allergy Rash Verified 06/18/21 01:06 nitrofurantoin AdvReac Severe CAUSES Verified 06/18/21 01:06 HEPATITUS hydromorphone AdvReac Intermediate HALLUCINATI Verified 06/18/21 01:06 ONS Past Med/Surg History Medical History Anxiety Asthma WELL CONTROLLED PER PT Asymptomatic postmenopausal status Atrial fibrillation DX YEARS AGO; FOLLOWS WITH DR. MALLOY Breast lump Carpal tunnel syndrome of left wrist Chronic kidney disease ONLY 1 KIDNEY FUNCTIONING 80%; FOLLOWS DR. 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 - NO STENTS/ANGIOPLASTY History of carpal tunnel release RT/ LT History of cataract surgery BL History of colonoscopy History of esophagogastroduodenoscopy (EGD) History of hysterectomy AND OOPHERECTOMY History of thyroidectomy, subtotal History of tooth extraction History of total knee replacement RT/LEFT Family History Brother History of colon resection Colorectal cancer Diabetes Prostate cancer Sister Breast cancer Mother Diabetes Coronary heart disease Father Myocardial infarction Denies family history of Ovarian cancer Social History Smoking Status: Never smoker Second Hand Exposure: No; Hx Alcohol Use: No Hx Substance Use: No Preferred Language: Azerbaijani Communication Ability: Effective Visual Impairment: No Limitations Hearing Ability: Normal Electrical Journeyman Required: No Beliefs That Will Affect Care: None marital status: / Current Living Situation: Alone Current Living Situation Comment: spouse lives in a home current occupational status: retired 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 How many Children do You have: 2 Feels Safe at Home: Yes Childhood Exposure to Second-Hand Smoke: No caffeine: Yes (soda rarley) Dental Care, Regularly: No Physical Activity Frequency: Daily Seatbelt Use: always Sunscreen Use: Yes Assistive Devices: Oxygen - Continuous Review of Systems A total of 10 systems reviewed and were otherwise negative Physical Exam Vital Signs Vital Signs - 24 hr 06/17/21 20:22 06/17/21 20:30 06/17/21 21:00 Temperature 36.8 C Temperature Source Oral Pulse Rate 65 60 63 Pulse Rate [Apical] Pulse Rhythm Regular Pulse Strength Normal Respiratory Rate 21 14 18 Respiratory Effort / Characteristics Non-Labored Respiratory Depth Normal Respiratory Pattern Regular Blood Pressure 221/102 H 212/91 H 213/90 H Blood Pressure [Right Arm] Blood Pressure Mean 141 131 131 Blood Pressure Mean [Right Arm] Blood Pressure Position Sitting Blood Pressure Position [Right Arm] Pulse Oximetry 96 99 99 Oxygen Delivery Method Nasal Cannula Nasal Cannula Nasal Cannula Oxygen Flow Rate 4 4 4 Sepsis New/Unexplained Change in Mental Status No Sepsis Action Taken by Nursing No Action Required 06/17/21 21:22 06/17/21 21:30 06/17/21 21:44 Temperature Temperature Source Pulse Rate 85 68 Pulse Rate [Apical] Pulse Rhythm Pulse Strength Respiratory Rate 18 13 13 Respiratory Effort / Characteristics Respiratory Depth Respiratory Pattern Blood Pressure 254/103 H 223/92 H 214/142 H Blood Pressure [Right Arm] Blood Pressure Mean 153 135 166 Blood Pressure Mean [Right Arm] Blood Pressure Position Blood Pressure Position [Right Arm] Pulse Oximetry 94 95 96 Oxygen Delivery Method Nasal Cannula Nasal Cannula Nasal Cannula Oxygen Flow Rate 4 4 4 Sepsis New/Unexplained Change in Mental Status Sepsis Action Taken by Nursing 06/17/21 22:00 06/17/21 22:30 06/17/21 23:22 Temperature Temperature Source Pulse Rate 65 77 Pulse Rate [Apical] Pulse Rhythm Pulse Strength Respiratory Rate 13 18 18 Respiratory Effort / Characteristics Respiratory Depth Respiratory Pattern Blood Pressure 229/101 H 215/121 H 224/94 H Blood Pressure [Right Arm] Blood Pressure Mean 143 152 137 Blood Pressure Mean [Right Arm] Blood Pressure Position Blood Pressure Position [Right Arm] Pulse Oximetry 96 96 96 Oxygen Delivery Method Nasal Cannula Nasal Cannula Nasal Cannula Oxygen Flow Rate 4 4 4 Sepsis New/Unexplained Change in Mental Status Sepsis Action Taken by Nursing 06/18/21 00:28 06/18/21 00:43 Temperature Temperature Source Pulse Rate 66 Pulse Rate [Apical] 67 Pulse Rhythm Pulse Strength Respiratory Rate 17 14 Respiratory Effort / Characteristics Non-Labored Respiratory Depth Normal Respiratory Pattern Regular Blood Pressure 220/110 H Blood Pressure [Right Arm] 247/115 H Blood Pressure Mean 146 Blood Pressure Mean [Right Arm] 159 Blood Pressure Position Blood Pressure Position [Right Arm] Sitting Pulse Oximetry 94 95 Oxygen Delivery Method Nasal Cannula Nasal Cannula Oxygen Flow Rate 4 4 Sepsis New/Unexplained Change in Mental Status Sepsis Action Taken by Nursing VITAL SIGNS - Vital signs and nursing notes were reviewed. Stable and afebrile. GENERAL -86-year-old female appearing her stated age. Communicates well with provider and answers questions appropriately. SKIN - Gross examination of the entire body surface demonstrates no lacerations to the body surface. Contusion noted overlying the occipital region of the scalp. Small, 2 cm in diameter purpleish discoloration noted to the central most aspect of this contusion. HEAD - Normocephalic, Atraumatic. No Blanco's Sign or Raccoon's Eyes. No depressed skull fractures palpable. EYES - PERRL with EOMI bilaterally. Without subconjunctival hemorrhage. P alpebral conjunctiva pink and moist with no injection. EARS - No deformities of external structures noted on gross examination bilaterally. No hemotympanum present. No tympanic perforation noted. Handle of malleus, umbo, cone of light, pars tensa/flaccid all easily visualized. NOSE - Midline and without cyanosis. No epistaxis or clear watery discharge noted. Septum midline without deviation. No septal hematoma noted. No overlying ecchymosis noted. MOUTH/OROPHARYNX - Without perioral cyanosis. Tongue midline with equal elevation of palate bilaterally. No blood noted in the oropharynx. No tonsillar hypertrophy, erythema, or exudates noted. No dental fractures noted. NECK -no C-spine tenderness. LUNGS - Chest wall symmetric without accessory muscle use, intercostals retractions, or central cyanosis. Clear to auscultation. CARDIAC -regular rate and rhythm with a loud murmur appreciated. EXTREMITIES - No gross deformities noted of the extremities. +5/5 strength noted in UE/LE bilaterally. NEUROLOGIC - Cranial nerves II through XII grossly intact. Sensory intact to light touch throughout. PSYCH - A&Ox3 and cooperates fully with examiner. Pt is very pleasant and interacts well with examiner. Course Administered Medications Discontinued Medications Doxazosin Mesylate (Doxazosin Mesylate 4 Mg Tab) 4 mg PO ONE ONE Stop: 06/17/21 23:39 Last Admin: 06/17/21 23:48 Dose: 4 mg Documented by: [id number] Medical Decision Making Laboratory Data Result diagrams: 06/18/21 01:08 06/18/21 01:08 Lab Results 06/18/21 06/18/21 06/18/21 Range/Units 01:00 01:08 01:08 WBC 10.42 (4.8-10.8) K/uL RBC 4.58 (4.2-5.4) M/uL Hgb 13.1 (12.0-16.0) g/dL Hct 41.3 (37-47) % MCV 90.2 (80-100) fL MCH 28.6 (25-34) pg MCHC 31.7 L (32-36) g/dL RDW Std Deviation 52.2 H (36.4-46.3) fL RDW Coeff of Yanelis 15.8 H (11.5-14.5) % Plt Count 257 (130-400) K/uL MPV 9.5 (7.4-10.4) fL Immature Gran % (Auto) 1.3 % Neut % (Auto) 72.5 % Lymph % (Auto) 15.2 % [place] % (Auto) 9.6 % Eos % (Auto) 1.0 % Baso % (Auto) 0.4 % Neut # (Auto) 7.56 H (1.4-6.5) K/uL Lymph # (Auto) 1.58 (1.2-3.4) K/uL [place] # (Auto) 1.00 H (0.11-0.59) K/uL Eos # (Auto) 0.10 (0-0.5) K/uL Baso # (Auto) 0.04 (0-0.2) K/uL Immature Gran # (Auto) 0.14 H (0.00-0.02) K/uL PT 12.4 H (9.0-12.0) Seconds INR 1.2 H (0.9-1.1) APTT 27.9 (21.0-31.0) Seconds PTT Ratio 1.0 Sodium (136-145) mmol/L Potassium (3.5-5.1) mmol/L Chloride (98-107) mmol/L Carbon Dioxide (21-32) mmol/L Anion Gap (3-11) BUN (6-23) mg/dl Creatinine (0.6-1.2) mg/dl Est Cr Clr Drug Dosing ml/min Est GFR ( Amer) ml/min Est GFR (Non-Af Amer) ml/min BUN/Creatinine Ratio (10-20) Glucose (70-99(Fasting)) mg/dl Calcium (8.5-10.1) mg/dl Total Bilirubin (0.2-1.0) mg/dl AST (13-39) U/L ALT (7-52) U/L Alkaline Phosphatase (34-104) U/L Total Protein (6.0-8.3) gm/dl Albumin (3.4-5.0) gm/dl Globulin (2.5-4.0) gm/dl Albumin/Globulin Ratio (0.9-2) SARS-CoV-2, RNA, NAAT NEGATIVE (NEGATIVE) 06/18/21 Range/Units 01:08 WBC (4.8-10.8) K/uL RBC (4.2-5.4) M/uL Hgb (12.0-16.0) g/dL Hct (37-47) % MCV (80-100) fL MCH (25-34) pg MCHC (32-36) g/dL RDW Std Deviation (36.4-46.3) fL RDW Coeff of Yanelis (11.5-14.5) % Plt Count (130-400) K/uL MPV (7.4-10.4) fL Immature Gran % (Auto) % Neut % (Auto) % Lymph % (Auto) % [place] % (Auto) % Eos % (Auto) % Baso % (Auto) % Neut # (Auto) (1.4-6.5) K/uL Lymph # (Auto) (1.2-3.4) K/uL [place] # (Auto) (0.11-0.59) K/uL Eos # (Auto) (0-0.5) K/uL Baso # (Auto) (0-0.2) K/uL Immature Gran # (Auto) (0.00-0.02) K/uL PT (9.0-12.0) Seconds INR (0.9-1.1) APTT (21.0-31.0) Seconds PTT Ratio Sodium 138 (136-145) mmol/L Potassium (3.5-5.1) mmol/L Chloride 103 (98-107) mmol/L Carbon Dioxide 27 (21-32) mmol/L Anion Gap 8 (3-11) BUN 38 H (6-23) mg/dl Creatinine 1.32 H (0.6-1.2) mg/dl Est Cr Clr Drug Dosing 26.7 ml/min Est GFR ( Amer) 41.9 ml/min Est GFR (Non-Af Amer) 36.2 ml/min BUN/Creatinine Ratio 28.8 H (10-20) Glucose 112 H (70-99(Fasting)) mg/dl Calcium 9.5 (8.5-10.1) mg/dl Total Bilirubin 0.5 (0.2-1.0) mg/dl AST (13-39) U/L ALT 25 (7-52) U/L Alkaline Phosphatase 70 (34-104) U/L Total Protein 6.5 (6.0-8.3) gm/dl Albumin 3.8 (3.4-5.0) gm/dl Globulin 2.7 (2.5-4.0) gm/dl Albumin/Globulin Ratio 1.4 (0.9-2) SARS-CoV-2, RNA, NAAT (NEGATIVE) Imaging Data My Impression: Chest x-ray: No significant change compared to previous. Radiologist's Impression: CT HEAD: Posterior left parietal occipital subcutaneous soft tissue swelling without an underlying fracture. No acute post-traumatic intracranial abnormality. No acute intracranial hemorrhage or abnormal extra-axial fluid collection. No acute stroke. Non-specific white matter changes, most commonly seen with small vessel disease. Age-appropriate central and peripheral atrophy. No midline shift. No paranasal sinus air-fluid level. Radiologist: Hiro Jose M.D. Study ready at 22:04 and initial results transmitted at 22:17 CT C SPINE: No acute post-traumatic abnormality. No fracture or subluxation. Maintenance of height of the vertebral bodies. Multilevel degenerative changes, greatest between C4-5 and C6-7. Prevertebral soft tissues unremarkable. Carotid artery atherosclerotic calcifications. Radiologist:Carey Jose M.D. Study ready at 22:04 and initial results transmitted at 22:20 [facility] Narrative Patient was seen and evaluated as above in room D03. Review was performed of nursing notes and vital signs. I did review pertinent previous visits and patient history. After obtaining a thorough history and physical examination the above work up was performed. Patient has a complex past medical history. She presents to us today for evaluation of injury status post mechanical fall. She notes that earlier today she got tangled up in oxygen tubing that was caught on her foot and she fell. She struck the back of her head. No loss of consciousness. She notes no pain at rest. She only notes discomfort if she to uches the contusion to the back of her head. This occurred while she was at [facility]. She was referred here via EMS for further evaluation and management. Options of care were discussed with the patient. CT scan of the head and C- spine felt indicated. Results as above. These were read as negative per radiology. Throughout the patient's stay she continued to be hypertensive. She was due for her nighttime dose of Cardura. This was ordered. She continued to be quite hypertensive. No headache. No chest pain or shortness of breath. Although being asymptomatic, given her continued significant elevation of blood pressure beyond her baseline it was felt that further evaluation and management was indicated. Case discussed with the hospitalist. Patient amenable to plan of care. I did add a chest x-ray and some laboratory studies. Chest x-ray does not reveal any significant change compared to previous. Labs reveal no leukocytosis or concerning anemia. Metabolic panel does reveal creatinine 1.32, BUN 38. Glucose 112. AST and potassium appear to have hemolyzed. Covid testing negative. EKG reveals normal sinus rhythm at rate of [address] elevation. This was compared to EKG June 08, 2021 and no significant change was found. Case was discussed with the attending physician. Continuous cardiac monitoring was ordered and revealed a heart rate of 66 bpm and sinus rhythm. GCS: 15 In the evaluation and treatment of this patient the following differential diagnoses were entertained: [] Impression & Plan Scalp contusion, Hypertension Discharge Plan Visit Data Chief Complaint: Fall Stated Complaint: hit head ED Provider: Kwabena Lee ED Midlevel Provider: Issac Beasley Discharge Problem: Scalp contusion, Hypertension Patient Disposition: Admitted As Inpatient Condition: Good Forms Stand Alone Forms: My [facility], Virtual Emergency Department, Important Visit Information Prescriptions Prescriptions: No Action metoprolol succinate 100 mg tablet extended release 24 hr 100 mg PO QAM Qty: 90 RF: 3 atorvastatin 20 mg tablet 20 mg PO HS Qty: 90 RF: 3 furosemide [Lasix] 20 mg tablet 20 mg PO QAM PRN (Reason: weight gain) Qty: 270 RF: 1 sertraline 100 mg tablet 100 mg PO PM Qty: 90 RF: 3 lorazepam 0.5 mg tablet 0.5 mg PO BID PRN (Reason: anxiety) Qty: 180 RF: 0 (DME) Oxygen Home Liters Per Minute See Dose Instructions .ROUTE .MEDSUPPLY Qty: 1 RF: 0 (DME) Oxygen Home Liters Per Minute See Rx Instructions .MEDSUPPLY Qty: 1 RF: 0 (DME) Flutter Valve Device See Rx Instructions .ROUTE .MEDSUPPLY Qty: 1 RF: 0 cholecalciferol (vitamin D3) [Vitamin D3] 1,000 unit Tablet 1,000 unit PO QAM RF: 0 docusate sodium 100 mg capsule 100 mg PO BID RF: 0 aspirin 81 mg Tablet,Delayed Release (Dr/Ec) 81 mg PO QAM RF: 0 omega [id number]-ojd-bao-fish oil [Fish Oil] 1,000 mg (120 mg-180 mg) Capsule 1 cap PO QAM RF: 0 ascorbic acid (vitamin C) 500 mg Capsule 500 mg PO QAM RF: 0 Incruse Ellipta 62.5 mcg/actuation Blister With Device 1 puff inhalation DAILY Qty: 1 RF: 3 (DME) Oxygen Home Liters Per Minute See Rx Instructions .Route Qty: 4 RF: 0 prednisone 5 mg tablet 5 mg PO BID RF: 0 levothyroxine 137 mcg tablet 137 mcg PO DAILYBB RF: 0 amlodipine 5 mg tablet 5 mg PO QAM RF: 0 doxazosin [Cardura] 4 mg tablet 4 mg PO Q12 RF: 0 albuterol sulfate [Ventolin HFA] 90 mcg/actuation HFA aerosol inhaler 2 inh inhalation Q4H PRN (Reason: Wheezing) RF: 0 heparin (bovine) 5,000 unit/mL Solution 5,000 unit Q12 RF: 0 vitamin E (dl, acetate) 180 mg (400 unit) Capsule 360 mg PO DAILY RF: 0 losartan 100 mg Tablet 100 mg PO DAILY RF: 0 Ocuvite Tablet 1 tab PO BID RF: 0 Referrals Referrals: Amador Coleman MD [Primary Care Provider] -
[2021-06-17] MEDS ORDERED: DOXAZosin MESYLATE 4 MG TAB PO ONE (23:38)
[2021-06-18 01:20] LABS: Basophils # (auto) 0.04 K/uL (0-0.2); Basophils % (auto) 0.4 %; Hematocrit (blood only) 41.3 % (37-47); Hemoglobin 13.1 g/dL (12.0-16.0); Immature Granulocytes # (auto) 0.14 K/uL (0.00-0.02); Immature Granulocytes % (auto) 1.3 %; Lymphocytes # (auto) 1.58 K/uL (1.2-3.4); Lymphocytes % (auto) 15.2 %; Mean Corpuscular Hemoglobin 28.6 pg (25-34); Mean Corpuscular Hgb Conc 31.7 g/dL (32-36); Mean Corpuscular Volume 90.2 fL (80-100); Mean Platelet Volume 9.5 fL (7.4-10.4); Monocytes % (auto) 9.6 %; Neutrophils # (auto) 7.56 K/uL (1.4-6.5); Neutrophils % (auto) 72.5 %; Platelet Count 257 K/uL (130-400); RDW Coefficient of Variation 15.8 % (11.5-14.5); RDW Standard Deviation 52.2 fL (36.4-46.3); Red Blood Count 4.58 M/uL (4.2-5.4); White Blood Count 10.42 K/uL (4.8-10.8)
[2021-06-18 01:34] LABS: INR 1.2 (0.9-1.1); Partial Thromboplastin Time 27.9 Seconds (21.0-31.0); Prothrombin Time 12.4 Seconds (9.0-12.0)
[2021-06-18 01:44] LABS: Albumin Globulin Ratio 1.4 (0.9-2); Albumin Level 3.8 gm/dl (3.4-5.0); BUN Creatinine Ratio 28.8 (10-20); Bilirubin,Total 0.5 mg/dl (0.2-1.0); Calcium 9.5 mg/dl (8.5-10.1); Creatinine Clr Calc Pharmacy 26.7 ml/min; Est GFR (African American) 41.9 ml/min; Est GFR (Non-African American) 36.2 ml/min; Globulin 2.7 gm/dl (2.5-4.0); Total Protein 6.5 gm/dl (6.0-8.3)
[2021-06-18] MEDS ORDERED: hydrALAZINE HCL 20 MG/ML VIAL IV PRN ×2 (01:52→05:38)
[2021-06-18 02:18] LABS: Thyroid Stimulating Hormone 14.032 uIu/ml (0.300-4.500)
[2021-06-18 02:32] LABS: Potassium 4.5 mmol/L (3.5-5.1)
[2021-06-18 02:52] LABS: T4 Free Thyroxine 1.07 ng/dl (0.61-1.60)
[2021-06-18] MEDS ORDERED: ALBUTEROL HFA 8 GM INHALER INH PRN (04:02)
[2021-06-18] MEDS ORDERED: ONDANSETRON INJ 2 MG/ML 2 ML VIAL IV PRN (04:02)
[2021-06-18] MEDS ORDERED: hydrALAZINE HCL 20 MG/ML VIAL IV STA (05:05)
[2021-06-18] MEDS ORDERED: amLODIPine BESYLATE 5 MG TAB PO ONE (05:05)
[2021-06-18] MEDS ORDERED: LOSARTAN POTASSIUM 50 MG TAB PO STA (05:05)
--- NOTE | 2021-06-18 05:24 | History & Physical Report ---
Date of Service June 18, 2021 Assessment & Plan (1) Status post fall: Plan: Status post mechanical fall with posterior left right occipital soft tissue [id number]- CT scan of head, and cervical spine both negative (2) Scalp contusion: Plan: See above (3) Hypertension: Plan: Hypertension/atrial fibrillation/aortic stenosis- Continue amlodipine 5 mg every morning, aspirin 81 mg every morning, doxazosin 4 mg p.o. every 12 hours, losartan 100 mg daily and metoprolol succinate extended release 100 mg every morning. Patient's blood pressure in the emergency department was uncontrolled, and question whether patient had taken medications today, and/or secondary to postconcussive syndrome associated with head trauma (4) Asthma: Plan: Albuterol HFA 2 puffs every 4 hours as needed (5) Atrial fibrillation: Plan: See above (6) Aortic stenosis: Plan: See above (7) Anxiety: Plan: Continue lorazepam 0.5 mg p.o. twice daily as needed (8) Hypothyroidism: Plan: Continue levothyroxine 137 mcg daily (9) Hypercholesterolemia: Plan: Continue atorvastatin 20 mg at bedtime (10) Rheumatoid arthritis: Plan: Continue prednisone 5 mg p.o. twice daily Admission and Anticipated Discharge Date Admission Date: June 18, 2021 History of Present Illness Chief Complaint: The patient is brought to the emergency department via EMS from [facility] for evaluation after a fall at that facility, where she tripped over her oxygen tubing lines, striking the back of her head and no loss of consciousness. Primary Care Provider: Amador Coleman MD The patient is a 86-year-old female with a past medical history including hypertension, partial nephrectomy, left radical nephrectomy, thyroidectomy, asthma, atrial fibrillation, bronchopneumonia, hypothyroidism, rheumatoid arthritis, tricuspid valve disease, aortic stenosis, paroxysmal supraventricular tachycardia, hyperlipidemia, COPD and diastolic heart failure. Patient presents emerged part with symptoms as noted above. CT scan of head and cervical spine primarily showed soft tissue swelling in the posterior left parieto-occipital area. While in the emergency department, her blood pressure remained high, and she was referred for evaluation for admission for better blood pressure control. It is unclear whether the patient took her medications today or not Allergies Allergy/AdvReac Type Severity Reaction Status Date / Time bee venom protein (honey bee) Allergy Intermediate HIVES Verified 06/18/21 01:06 oxycodone Allergy Unknown Unknown Verified 06/18/21 01:06 Sulfa (Sulfonamide Allergy Unknown MOUTH Verified 06/18/21 01:06 Antibiotics) SWELLED/HIVES TO SULFA DRUGS gabapentin Allergy Rash Verified 06/18/21 01:06 nitrofurantoin AdvReac Severe CAUSES Verified 06/18/21 01:06 HEPATITUS hydromorphone AdvReac Intermediate HALLUCINATI Verified 06/18/21 01:06 ONS Home Medications Medication Instructions Recorded Confirmed Type ascorbic acid (vitamin C) 500 mg 500 mg PO QAM 02/08/18 06/18/21 History capsule aspirin 81 mg tablet,delayed 81 mg PO QAM 02/08/18 06/18/21 History release cholecalciferol (vitamin D3) 25 1,000 unit PO QAM 02/08/18 06/18/21 History mcg (1,000 unit) tablet (Vitamin D3) omega 4-mva-kyl-fish oil 1,000 mg 1 cap PO QAM 02/08/18 06/18/21 History (120 mg-180 mg) capsule (Fish Oil) Oxygen Home #1 ea 10/19/18 05/28/21 Rx docusate sodium 100 mg capsule 100 mg PO BID cap 05/13/19 06/18/21 History metoprolol succinate 100 mg 100 mg PO QAM #90 tab 03/12/20 06/18/21 Rx tablet,extended release 24 hr atorvastatin 20 mg tablet 20 mg PO HS #90 tab 11/03/20 06/18/21 Rx furosemide 20 mg tablet (Lasix) 20 mg PO QAM PRN #270 tab 12/25/20 06/18/21 Rx sertraline 100 mg tablet 100 mg PO PM #90 tab 01/05/21 06/18/21 Rx Flutter Valve #1 ea 02/03/21 05/28/21 Rx Oxygen Home #1 ea 02/03/21 05/28/21 Rx lorazepam 0.5 mg tablet 0.5 mg PO BID PRN #180 tab 03/03/21 06/18/21 Rx Oxygen Home #4 l 05/18/21 05/28/21 Rx umeclidinium 62.5 mcg/actuation 1 puff INHALATION DAILY #1 inh 05/18/21 06/18/21 Rx blister powder for inhalation (Incruse Ellipta) albuterol sulfate 90 mcg/actuation 2 inh INHALATION Q4H PRN 06/08/21 06/18/21 History aerosol inhaler (Ventolin HFA) amlodipine 5 mg tablet 5 mg PO QAM 06/08/21 06/18/21 History doxazosin 4 mg tablet (Cardura) 4 mg PO Q12 06/08/21 06/18/21 History levothyroxine 137 mcg tablet 137 mcg PO DAILYBB 06/08/21 06/18/21 History prednisone 5 mg tablet 5 mg PO BID 06/08/21 06/18/21 History heparin (bovine) 5,000 unit/mL 5,000 unit Q12 06/18/21 06/18/21 History injection solution losartan 100 mg tablet 100 mg PO DAILY 06/18/21 06/18/21 History vitamin A-vitamin C-vit E-min 1 tab PO BID 06/18/21 06/18/21 History tablet vitamin E (dl, acetate) 180 mg 360 mg PO DAILY 06/18/21 06/18/21 History (400 unit) capsule Past Med/Surg History Medical History Anxiety Asthma WELL CONTROLLED PER PT Asymptomatic postmenopausal status Atrial fibrillation DX YEARS AGO; FOLLOWS WITH DR. MALLOY Breast lump Carpal tunnel syndrome of left wrist Chronic kidney disease ONLY 1 KIDNEY FUNCTIONING 80%; FOLLOWS DR. 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 - NO STENTS/ANGIOPLASTY History of carpal tunnel release RT/ LT History of cataract surgery BL History of colonoscopy History of esophagogastroduodenoscopy (EGD) History of hysterectomy AND OOPHERECTOMY History of thyroidectomy, subtotal History of tooth extraction History of total knee replacement RT/LEFT Family History Brother History of colon resection Colorectal cancer Diabetes Prostate cancer Sister Breast cancer Mother Diabetes Coronary heart disease Father Myocardial infarction Denies family history of Ovarian cancer Social History Smoking Status: Never smoker Second Hand Exposure: No; Do You Dip or Chew Tobacco: No; Hx Alcohol Use: No Hx Substance Use: No Preferred Language: Czech Communication Ability: Effective Visual Impairment: No Limitations Hearing Ability: Normal Financial Controller Required: No Beliefs That Will Affect Care: None marital status: / Current Living Situation: Rehab Current Living Situation Comment: spouse lives in a home current occupational status: retired 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 Physical Exam Physical Exam: The patient is awake, confused, well developed and well nourished, left parieto-occipital contusion, lying in bed and in no acute distress. HEENT--PERRL, EOMI, mucous membranes and oropharynx dry. Neck--supple. No JVD. No bruits. Thyroid normal, trachea midline, no adenopathy. Heart--normal S1 and S2. No murmurs, rubs or gallops. Lungs--clear bilaterally, no respiratory distress, no accessory muscle use. Abdomen--normal bowel sounds and soft. Nontender. Nondistended, no hernias or masses, no organomegaly. Extremities--no cyanosis or clubbing. No edema. Dermatologic--normal skin turgor, normal color, no abnormal lymph nodes, no rash. Neurologic--cranial nerves II through XII grossly intact. Rheumatologic--normal range of motion. Psychiatric--mildly confused. Results & Data Results & Data ([facility]) Vital Signs (Past 12 Hours) Vital Signs Temp Pulse Pulse Resp BP BP BP 06/18/21 03:50 36.5 C 69 18 223/105 H 196/120 H 06/18/21 02:30 63 19 236/108 H 06/18/21 02:20 68 20 238/107 H 06/18/21 00:43 66 14 220/110 H 06/18/21 00:29 68 15 247/115 H 06/18/21 00:28 67 17 247/115 H 06/18/21 00:15 63 17 226/115 H 06/17/21 23:22 77 18 224/94 H 06/17/21 22:30 18 215/121 H 06/17/21 22:00 65 13 229/101 H 06/17/21 21:44 68 13 214/142 H 06/17/21 21:30 13 223/92 H 06/17/21 21:22 85 18 254/103 H 06/17/21 21:00 63 18 213/90 H 06/17/21 20:30 60 14 212/91 H 06/17/21 20:22 36.8 C 65 21 221/102 H Pulse Ox 06/18/21 03:50 96 06/18/21 02:30 95 06/18/21 02:20 94 06/18/21 00:43 95 06/18/21 00:29 97 06/18/21 00:28 94 06/18/21 00:15 97 06/17/21 23:22 96 06/17/21 22:30 96 06/17/21 22:00 96 06/17/21 21:44 96 06/17/21 21:30 95 06/17/21 21:22 94 06/17/21 21:00 99 06/17/21 20:30 99 06/17/21 20:22 96 Laboratory Results Laboratory Results WBC 10.42 K/uL (4.8-10.8) 06/18/21 01:08 RBC 4.58 M/uL (4.2-5.4) 06/18/21 01:08 Hgb 13.1 g/dL (12.0-16.0) 06/18/21 01:08 Hct 41.3 % (37-47) 06/18/21 01:08 MCV 90.2 fL (80-100) 06/18/21 01:08 MCH 28.6 pg (25-34) 06/18/21 01:08 MCHC 31.7 g/dL (32-36) L 06/18/21 01:08 RDW Std Deviation 52.2 fL (36.4-46.3) H 06/18/21 01:08 RDW Coeff of Yanelis 15.8 % (11.5-14.5) H 06/18/21 01:08 Plt Count 257 K/uL (130-400) 06/18/21 01:08 MPV 9.5 fL (7.4-10.4) 06/18/21 01:08 Immature Gran % (Auto) 1.3 % 06/18/21 01:08 Neut % (Auto) 72.5 % 06/18/21 01:08 Lymph % (Auto) 15.2 % 06/18/21 01:08 Osborne % (Auto) 9.6 % 06/18/21 01:08 Eos % (Auto) 1.0 % 06/18/21 01:08 Baso % (Auto) 0.4 % 06/18/21 01:08 Neut # (Auto) 7.56 K/uL (1.4-6.5) H 06/18/21 01:08 Lymph # (Auto) 1.58 K/uL (1.2-3.4) 06/18/21 01:08 Osborne # (Auto) 1.00 K/uL (0.11-0.59) H 06/18/21 01:08 Eos # (Auto) 0.10 K/uL (0-0.5) 06/18/21 01:08 Baso # (Auto) 0.04 K/uL (0-0.2) 06/18/21 01:08 Immature Gran # (Auto) 0.14 K/uL (0.00-0.02) H 06/18/21 01:08 PT 12.4 Seconds (9.0-12.0) H 06/18/21 01:08 INR 1.2 (0.9-1.1) H 06/18/21 01:08 APTT 27.9 Seconds (21.0-31.0) 06/18/21 01:08 PTT Ratio 1.0 06/18/21 01:08 Sodium 138 mmol/L (136-145) 06/18/21 01:08 Potassium 4.5 mmol/L (3.5-5.1) 06/18/21 02:03 Chloride 103 mmol/L (98-107) 06/18/21 01:08 Carbon Dioxide 27 mmol/L (21-32) 06/18/21 01:08 Anion Gap 8 (3-11) 06/18/21 01:08 BUN 38 mg/dl (6-23) H 06/18/21 01:08 Creatinine 1.32 mg/dl (0.6-1.2) H 06/18/21 01:08 Est Cr Clr Drug Dosing 26.7 ml/min 06/18/21 01:08 Est GFR ( Amer) 41.9 ml/min 06/18/21 01:08 Est GFR (Non-Af Amer) 36.2 ml/min 06/18/21 01:08 BUN/Creatinine Ratio 28.8 (10-20) H 06/18/21 01:08 Glucose 112 mg/dl (70-99(Fasting)) H 06/18/21 01:08 Calcium 9.5 mg/dl (8.5-10.1) 06/18/21 01:08 Total Bilirubin 0.5 mg/dl (0.2-1.0) 06/18/21 01:08 AST 24 U/L (13-39) 06/18/21 02:03 ALT 25 U/L (7-52) 06/18/21 01:08 Alkaline Phosphatase 70 U/L (34-104) 06/18/21 01:08 Total Protein 6.5 gm/dl (6.0-8.3) 06/18/21 01:08 Albumin 3.8 gm/dl (3.4-5.0) 06/18/21 01:08 Globulin 2.7 gm/dl (2.5-4.0) 06/18/21 01:08 Albumin/Globulin Ratio 1.4 (0.9-2) 06/18/21 01:08 TSH 14.032 uIu/ml (0.300-4.500) H 06/18/21 01:08 Free T4 1.07 ng/dl (0.61-1.60) 06/18/21 01:08 SARS-CoV-2, RNA, NAAT NEGATIVE (NEGATIVE) 06/18/21 01:00 Diagnostic Findings [facility] Patient: SIDDHARTH HANSEN I (Female) : 33 Status: ER Date: 06/17/21 21:19 Room #: History: fall, occipital region injury Slices: 67 Priors: Chente: Misha Rosario @ [phone] Exams: CT HEAD Contrast: Accession Numbers: [id number] Referring Physician: MIRNA STANLEY Preliminary Findings Only See Final Report For Complete Findings CT HEAD: Posterior left parietal occipital subcutaneous soft tissue swelling without an underlying fracture. No acute post-traumatic intracranial abnormality. No acute intracranial hemorrhage or abnormal extra-axial fluid collection. No acute stroke. Non-specific white matter changes, most commonly seen with small vessel disease. Age-appropriate central and peripheral atrophy. No midline shift. No paranasal sinus air-fluid level. Radiologist: Hiro Jose M.D. Study ready at 22:04 and initial results transmitted at 22:17 *This report constitutes a preliminary interpretation only. Non-acute findings felt to be unrelated to the clinical presentation may not be discussed in this report. The study will be interpreted and a final report will be generated by the local Radiologist the following shift. To reach the [facility] radiology department call [phone]. If a discrepancy is found between the preliminary and final interpretations of this study, please notify us via our Client Portal at [email or web address], under QA Exams. You can also fax this report with a description of the discrepancy, or include the final report, to our daytime fax number [phone]. If faxing, please indicate the severity of discrepancy using one of the following categories: [ ] 1 - Agree/Informational [ ] 2 - Unlikely to Affect Management [ ] 3 - Possible Eventual Change of Management [ ] 4 - Probable Immediate Change of Management For all other patient related information, please fax us at [phone]. [facility] Patient: SIDDHARTH HANSEN I (Female) : 33 Status: ER Date: 06/17/21 21:22 Room #: History: fall, occipital region injury Slices: [id number] Priors: Tech: Misha Rosario @ [phone] Exams: CT C SPINE Contrast: Accession Numbers: [id number] Referring Physician: MIRNA STANLEY Preliminary Findings Only See Final Report For Complete Findings CT C SPINE: No acute post-traumatic abnormality. No fracture or subluxation. Maintenance of height of the vertebral bodies. Multilevel degenerative changes, greatest between C4-5 and C6-7. Prevertebral soft tissues unremarkable. Carotid artery atherosclerotic calcifications. Radiologist: Hiro Jose M.D. Study ready at 22:04 and initial results transmitted at 22:20 *This report constitutes a preliminary interpretation only. Non-acute fin dings felt to be unrelated to the clinical presentation may not be discussed in this report. The study will be interpreted and a final report will be generated by the local Radiologist the following shift. To reach the [facility] radiology department call [phone]. If a discrepancy is found between the preliminary and final interpretations of this study, please notify us via our Client Portal at [email or web address], under QA Exams. You can also fax this report with a description of the discrepancy, or include the final report, to our daytime fax number [phone]. If faxing, please indicate the severity of discrepancy using one of the following categories: [ ] 1 - Agree/Informational [ ] 2 - Unlikely to Affect Management [ ] 3 - Possible Eventual Change of Management [ ] 4 - Probable Immediate Change of Management For all other patient related information, please fax us at [phone]. [id number] Code Status & VTE Plan Code Status Full code VTE Prophylaxis Plan VTE Prophylaxis will be ordered: Yes PG Care Time/CCT Total # of Minutes Spent Total Time Spent with Patient: Total time spent is greater than 50% in coordination of care (as documented) at patient's floor/unit and/or counseling patient: Coding Level of Care Code 46767 Initial Inpt Care Lvl 3 Diagnoses Scalp contusion S00.03XA Hypertension I10 Asthma J45.909 Atrial fibrillation I48.91 Hypothyroidism E03.9 Rheumatoid arthritis M06.9 Aortic stenosis I35.0 Anxiety F41.9 Hypercholesterolemia E78.00 Status post fall Z91.81
[2021-06-18] MEDS ORDERED: LEVOTHYROXINE SODIUM 137 MCG TABLET PO SCH (06:30)
--- NOTE | 2021-06-18 07:06 | CT Scan Report ---
CT SCAN OF THE BRAIN WITHOUT IV CONTRAST CLINICAL HISTORY: Fall. COMPARISON STUDY: CT of the brain dated 02/08/2018. PET/CT dated 02/17/2021. TECHNIQUE: Unenhanced axial CT scan of the brain is performed from the vertex to the skull base. A do se lowering technique was utilized adhering to the principles of ALARA. CT DOSE: 1141.67 mGy.cm FINDINGS: Brain parenchyma: There are age-related involutional changes noting mild subcortical and periventric ular microangiopathic change. There is no hemorrhage, mass effect, or evidence of acute territorial i schemia by CT criteria. Zamora-white matter differentiation is preserved. No extra-axial fluid collecti on is seen. Ventricles, sulci, cisterns: Prominent secondary to involutional change. Intracranial vasculature: There is atherosclerotic calcification of the cavernous carotid arteries. Calvarium: No depressed calvarial fracture is identified. Soft tissues: There is a posterior scalp injury. There is a 2.0 cm nodule in the left parotid gland. Sinuses and mastoids: The paranasal sinuses are clear. The mastoid air cells are well pneumatized. Orbits: The bony orbits are grossly intact. There are bilateral ocular lens implants. IMPRESSION: 1. There is no hemorrhage, mass effect, or evidence of acute territorial ischemia by CT criteria. 2. Posterior scalp injury. 3. Again seen is a 2.0 cm left parotid nodule. This was not FDG avid by PET on 02/17/2021. If warrant ed this could be further evaluated by ENT on a nonemergent basis. ACT 112: Negative or not required by law. Electronically signed by: Brock Lou M.D. 06/18/2021 7:04 AM
--- NOTE | 2021-06-18 07:35 | CT Scan Report ---
CT SCAN OF THE CERVICAL SPINE CLINICAL HISTORY: Fall. COMPARISON STUDY: CT of the neck dated 09/05/2013. Chest CT dated 06/08/2021. TECHNIQUE: CT scan of the cervical spine is performed from the skull base to the upper thoracic spine . Images are reviewed in the axial, sagittal, and coronal planes. IV contrast was not administered fo r this examination. A dose lowering technique was utilized adhering to the principles of ALARA. FINDINGS: Skeletal structures: The skeletal structures are osteopenic. There is no evidence of fracture or subl uxation involving the cervical spine. Vertebral body height and alignment are maintained. The odonto id process and lateral masses are intact. The atlantoaxial articulation is preserved noting productiv e degenerative change. The spinous processes appear intact. There is moderate multilevel cervical spo ndylosis. Uncovertebral and facet arthropathy contribute sterile foraminal narrowing at several level s. Intervertebral discs: There is moderate disc space narrowing at C4-C5, C5-C6, and C6-C7. Central canal: Posterior disc osteophyte complexes at C4-C5, C5-C6, and C6-C7 may contribute to multi level acquired compromise of the central canal. Soft tissues: The prevertebral and paraspinous soft tissues are within normal limits. There is athero sclerotic calcification of the carotid bulbs. A 2.0 cm nodule is noted in the left parotid gland. Calvarium: The visualized calvarium at the skull base appears intact. Brain parenchyma: Partially visualized brain parenchyma at the skull base is within normal limits. Sinuses and mastoids: There is trace mucosal thickening within the maxillary antra. The mastoid air c ells are well pneumatized. Lung apices: Linear atelectasis is partially visualized in the superior segment of the left lower lob e. Partially imaged apical lung parenchyma is otherwise clear as visualized. IMPRESSION: 1. There is no evidence of fracture or subluxation involving the cervical spine. 2. Osteopenia and spondylotic change as above. ACT 112: Negative or not required by law. Electronically signed by: Brock Lou M.D. 06/18/2021 7:33 AM
--- NOTE | 2021-06-18 08:08 | XRay Report ---
XR chest 1V portable HISTORY: Hypertension. COMPARISON: Chest 06/08/2021. FINDINGS: No pneumothorax. No pleural effusions. The heart remains enlarged. There is mild central pu lmonary vascular congestion without overt edema. This has slightly improved. Stable sclerotic focus o verlying the left humeral neck. IMPRESSION: Cardiomegaly with slight improvement in the mild congestive change. ACT 112: Negative or not required by law. Electronically signed by: Elijah Turpin M.D. 06/18/2021 8:07 AM
[2021-06-18] MEDS ORDERED: DOCUSATE SODIUM 100 MG CAP PO SCH (09:00)
[2021-06-18] MEDS ORDERED: DOXAZosin MESYLATE 4 MG TAB PO SCH (09:00)
[2021-06-18] MEDS ORDERED: predniSONE 5 MG TAB PO SCH (09:00)
[2021-06-18] MEDS ORDERED: METOPROLOL SUCC 50MG EXT REL TAB PO SCH (09:00)
[2021-06-18] MEDS ORDERED: LOSARTAN POTASSIUM 50 MG TAB PO SCH (09:00)
[2021-06-18] MEDS ORDERED: ASCORBIC ACID 500 MG TAB PO SCH (09:00)
[2021-06-18] MEDS ORDERED: CHOLECALCIFEROL 1,000 UNITS 25 MCG TAB PO SCH (09:00)
[2021-06-18] MEDS ORDERED: ASPIRIN 81 MG ECTAB PO SCH (09:00)
[2021-06-18] MEDS ORDERED: UMECLIDINIUM BROMIDE 62.5MCG/BLISTER 7 PUFFS/INHALER INH SCH (09:00)
[2021-06-18] MEDS ORDERED: amLODIPine BESYLATE 5 MG TAB PO SCH (09:00)
[2021-06-18 12:31] LABS: Appearance Urine Clear (Clear); Bacteria Urine Automated Negative (Negative); Bilirubin Urine Negative (Negative); Blood Urine Negative (Negative); Cast Urine Automated 0 /lpf (0-5); Color Urine Yellow; Epithelial Cell Urine Auto >30 /lpf (0-5); Glucose Urine UA Negative (Negative); Ketones Urine Negative (Negative); Leukocyte Esterase Urine 2+ (Negative); Nitrite Urine Negative (Negative); Protein Urine Negative (Negative); RBC Urine Automated 0-4 /hpf (0-4); Specific Gravity Urine 1.015 (1.000-1.030); Urobilinogen Urine Negative (Negative)
--- NOTE | 2021-06-18 13:16 | Discharge Summary ---
Date of Service June 18, 2021 Admission HPI Per Admitting Provider The patient is a 86-year-old female with a past medical history including hypertension, partial nephrectomy, left radical nephrectomy, thyroidectomy, asthma, atrial fibrillation, bronchopneumonia, hypothyroidism, rheumatoid arthritis, tricuspid valve disease, aortic stenosis, paroxysmal supraventricular tachycardia, hyperlipidemia, COPD and diastolic heart failure. Patient presents emerged part with symptoms as noted above. CT scan of head and cervical spine primarily showed soft tissue swelling in the posterior left parieto-occipital area. While in the emergency department, her blood pressure remained high, and she was referred for evaluation for admission for better blood pressure control. It is unclear whether the patient took her medications today or not Admission Exam Per Admitting Provider The patient is awake, confused, well developed and well nourished, left parieto- occipital contusion, lying in bed and in no acute distress. HEENT--PERRL, EOMI, mucous membranes and oropharynx dry. Neck--supple. No JVD. No bruits. Thyroid normal, trachea midline, no adenopathy. Heart--normal S1 and S2. No murmurs, rubs or gallops. Lungs--clear bilaterally, no respiratory distress, no accessory muscle use. Abdomen--normal bowel sounds and soft. Nontender. Nondistended, no hernias or masses, no organomegaly. Extremities--no cyanosis or clubbing. No edema. Dermatologic--normal skin turgor, normal color, no abnormal lymph nodes, no rash. Neurologic--cranial nerves II through XII grossly intact. Rheumatologic--normal range of motion. Psychiatric--mildly confused. Principal Diagnosis Scalp contusion after mechanical fall Discharge Exam Constitutional WD/WN, vitals as above Eyes PERRL, conjunctivae normal, anicteric sclerae ENMT external ear and nose normal, oropharynx normal Neck normal visual inspection Respiratory normal respiratory effort, lungs clear to auscultation Cardiovascular RRR, no murmur, no edema Gastrointestinal (Abdomen) normal bowel sounds, soft, nontender, no hepatosplenomegaly Skin no rashes, warm and dry Mild TTP to left posterior parieto-occipital scalp, no swelling or warmth noted Neurologic no focal motor deficits Psychiatric A+Ox3, euthymic affect Discharge Data Allergies Allergy/AdvReac Type Severity Reaction Status Date / Time bee venom protein (honey bee) Allergy Intermediate HIVES Verified 04/15/22 01:06 oxycodone Allergy Unknown Unknown Verified 06/18/21 01:06 Sulfa (Sulfonamide Allergy Unknown MOUTH Verified 06/18/21 01:06 Antibiotics) SWELLED/HIVES TO SULFA DRUGS gabapentin Allergy Rash Verified 06/18/21 01:06 nitrofurantoin AdvReac Severe CAUSES Verified 06/18/21 01:06 HEPATITUS hydromorphone AdvReac Intermediate HALLUCINATI Verified 06/18/21 01:06 ONS Consultations 06/18/21 02:08 ED Decision to Admit Stat Ordered Studies CT SCAN OF THE BRAIN WITHOUT IV CONTRAST CLINICAL HISTORY: Fall. COMPARISON STUDY: CT of the brain dated 02/08/2018. PET/CT dated 02/17/2021. TECHNIQUE: Unenhanced axial CT scan of the brain is performed from the vertex to the skull base. A dose lowering technique was utilized adhering to the principles of ALARA. CT DOSE: 1141.67 mGy.cm FINDINGS: Brain parenchyma: There are age-related involutional changes noting mild subcortical and periventricular microangiopathic change. There is no hemorrhage, mass effect, or evidence of acute territorial ischemia by CT criteria. Zamora- white matter differentiation is preserved. No extra-axial fluid collection is seen. Ventricles, sulci, cisterns: Prominent secondary to involutional change. Intracranial vasculature: There is atherosclerotic calcification of the cavernous carotid arteries. Calvarium: No depressed calvarial fracture is identified. Soft tissues: There is a posterior scalp injury. There is a 2.0 cm nodule in the left parotid gland. Sinuses and mastoids: The paranasal sinuses are clear. The mastoid air cells are well pneumatized. Orbits: The bony orbits are grossly intact. There are bilateral ocular lens implants. IMPRESSION: 1. There is no hemorrhage, mass effect, or evidence of acute territorial ischemia by CT criteria. 2. Posterior scalp injury. 3. Again seen is a 2.0 cm left parotid nodule. This was not FDG avid by PET on 02/17/2021. If warranted this could be further evaluated by ENT on a nonemergent basis. CT SCAN OF THE CERVICAL SPINE CLINICAL HISTORY: Fall. COMPARISON STUDY: CT of the neck dated 09/05/2013. Chest CT dated 06/08/2021. TECHNIQUE: CT scan of the cervical spine is performed from the skull base to the upper thoracic spine. Images are reviewed in the axial, sagittal, and coronal planes. IV contrast was not administered for this examination. A dose lowering technique was utilized adhering to the principles of ALARA. FINDINGS: Skeletal structures: The skeletal structures are osteopenic. There is no evidence of fracture or subluxation involving the cervical spine. Vertebral body height and alignment are maintained. The odontoid process and lateral masses are intact. The atlantoaxial articulation is preserved noting productive degenerative change. The spinous processes appear intact. There is moderate multilevel cervical spondylosis. Uncovertebral and facet arthropathy contribute sterile foraminal narrowing at several levels. Intervertebral discs: There is moderate disc space narrowing at C4-C5, C5-C6, and C6-C7. Central canal: Posterior disc osteophyte complexes at C4-C5, C5-C6, and C6-C7 may contribute to multilevel acquired compromise of the central canal. Soft tissues: The prevertebral and paraspinous soft tissues are within normal limits. There is atherosclerotic calcification of the carotid bulbs. A 2.0 cm nodule is noted in the left parotid gland. Calvarium: The visualized calvarium at the skull base appears intact. Brain parenchyma: Partially visualized brain parenchyma at the skull base is within normal limits. Sinuses and mastoids: There is trace mucosal thickening within the maxillary antra. The mastoid air cells are well pneumatized. Lung apices: Linear atelectasis is partially visualized in the superior segment of the left lower lobe. Partially imaged apical lung parenchyma is otherwise clear as visualized. IMPRESSION: 1. There is no evidence of fracture or subluxation involving the cervical spine. 2. Osteopenia and spondylotic change as above. Hospital Course (1) Status post fall: Pt admitted after fall. CT Head, CT cervical spine, CXR did not suggest acute trauma, fracture, bleed. Results as above. Initially hypertensive with SBPs > 200s, DBPs > 100s persistently since admission but responded to PRN hydralazine and resumption of home medications, normalized to 130s/80s in AM. Acutely elevated BPs were likely due to physiologic stress after fall and being unable to take her BP medications at rehab the day prior. There were no neurologic deficits noted during her stay or on discharge exam. Fall trauma was mild without sustained injury. Of note, pt's medical history includes prior diagnosis of atrial fibrillation and she follows regularly with check and transfer beader Dr. Cruz. [id number] score calcu lated to be at least 4, though pt's home medications do not include any anticoagulant (though aspirin included). Unknown whether pt has ever been on anticoagulation prior. Currently not in atrial fibrillation. (2) Scalp contusion: (3) Hypertension: (4) Hypertension: Total Time Total Time Spent Total Time Spent (In Minutes): <30 Discharge Plan Discharge Items Patient Disposition: Transfer Inpatient Rehab Fac Reason For Visit: S/P FALL, UNCONTROLLED HTN, CONFUSION Discharge Diagnosis: Fall with scalp contusion Condition on Discharge: Good Activity: Per Instructions section Non-emergency contact: Primary Care Provider Call non-emergency contact if: your symptoms worsen, your pain is worsening and you have a fever Follow-up/Referrals: Amador Coleman MD [Primary Care Provider] - Diet: Regular, Heart Healthy and Low Sodium (2gm) Addtl Attending Provider Instructions: You were admitted to the hospital for a fall. Thankfully, your fall did not cause any fracture or stroke. The injury was limited to just the surface of the scalp. Any residual pain or swelling should resolve with time. You could also apply some ice to the area for relief. A discharge summary will be sent to your primary care physician to ensure continuity of care. Please bring this discharge summary with you to your next office appointment so that your provider can review it at that time. Follow-up appointments: You will be seen by the physician at [facility] after discharge. Medications: Your medication list has been reviewed and reconciled upon discharge to ensure accuracy and continuity of care. An updated list of all your medications is included with your hospital discharge paperwork. Please review this list closely, and make note of any changes. Take your medications as instructed; do not skip a dose of your medicines. Make sure all of your doctors know every medicine you are taking (including [id number] medicines, vitamins, and supplements). Call your primary care provider before taking any new medicines (including [id number] medicines, vitamins, and supplements), because some of these may interact with your current medications, or may make your symptoms worse. Tell your primary care provider if you cannot afford your medications. CONTACT YOUR PRIMARY CARE PROVIDER if you experience any of the following: Weakness Numbness Headache Vision change Difficulty following your treatment plan, or difficulty taking medications CALL 911 OR GO TO THE EMERGENCY DEPARTMENT if you experience any of the following: Sudden, severe abdominal pain or nausea/vomiting Severe chest pain, or chest pain that radiates (moves) to your jaw or arm Sudden, severe shortness of breath or difficulty breathing Thank you for allowing us to participate in your care. Pending Studies at Discharge: No Stand-Alone Forms: My [facility] Skilled Items Patient informed of condition?: Yes DNR: No Discharge Level of Care: Acute rehab Communicable Disease: No Discharge Prognosis: Stable Lines: None Urinary Catheter: No Medications and DC Order Prescriptions: Continued metoprolol succinate 100 mg tablet extended release 24 hr 100 mg PO QAM Qty: 90 RF: 3 atorvastatin 20 mg tablet 20 mg PO HS Qty: 90 RF: 3 furosemide [Lasix] 20 mg tablet 20 mg PO QAM PRN (Reason: weight gain) Qty: 270 RF: 1 sertraline 100 mg tablet 100 mg PO PM Qty: 90 RF: 3 lorazepam 0.5 mg tablet 0.5 mg PO BID PRN (Reason: anxiety) Qty: 180 RF: 0 (DME) Oxygen Home Liters Per Minute See Dose Instructions .ROUTE .MEDSUPPLY Qty: 1 RF: 0 (DME) Oxygen Home Liters Per Minute See Rx Instructions .MEDSUPPLY Qty: 1 RF: 0 (DME) Flutter Valve Device See Rx Instructions .ROUTE .MEDSUPPLY Qty: 1 RF: 0 cholecalciferol (vitamin D3) [Vitamin D3] 1,000 unit Tablet 1,000 unit PO QAM RF: 0 docusate sodium 100 mg capsule 100 mg PO BID RF: 0 aspirin 81 mg Tablet,Delayed Release (Dr/Ec) 81 mg PO QAM RF: 0 omega 6-meb-zhe-fish oil [Fish Oil] 1,000 mg (120 mg-180 mg) Capsule 1 cap PO QAM RF: 0 ascorbic acid (vitamin C) 500 mg Capsule 500 mg PO QAM RF: 0 Incruse Ellipta 62.5 mcg/actuation Blister With Device 1 puff inhalation DAILY Qty: 1 RF: 3 (DME) Oxygen Home Liters Per Minute See Rx Instructions .Route Qty: 4 RF: 0 prednisone 5 mg tablet 5 mg PO BID RF: 0 levothyroxine 137 mcg tablet 137 mcg PO DAILYBB RF: 0 amlodipine 5 mg tablet 5 mg PO QAM RF: 0 doxazosin [Cardura] 4 mg tablet 4 mg PO Q12 RF: 0 albuterol sulfate [Ventolin HFA] 90 mcg/actuation HFA aerosol inhaler 2 inh inhalation Q4H PRN (Reason: Wheezing) RF: 0 heparin (bovine) 5,000 unit/mL Solution 5,000 unit Q12 RF: 0 vitamin E (dl, acetate) 180 mg (400 unit) Capsule 360 mg PO DAILY RF: 0 losartan 100 mg Tablet 100 mg PO DAILY RF: 0 vitamin A-vitamin C-vit E-min Tablet 1 tab PO BID RF: 0 Discharge Orders: Discharge Order (Routine); Ordered 06/18/21 Ordered By: Danyelle Mancuso Admission Data Admit Date/Time: 06/18/21 02:06 Attending Provider: Ronaldo Ortiz Admit Provider: Tony Stratton Primary Care Provider: Amador Coleman Other Providers: Tony Stratton ; [facility] Other Interventions: Discharge Summary Assessment (RN) Last Done: 06/18/21 12:46 Supervising Physician Co-Signing Physician Notes I personally examined the patient and verified all deleon points of history and exam, discussed case, and agree with decision making with Dr Mancuso Feeling better, feeling up to returning to rehab. Discussed with rehab phy sician who felt quite comfortable taking her back. Vitals noted, in general she is awake and alert pleasant no distress. HEENT normocephalic atraumatic mucous membranes moist. Breathing unlabored no accessory muscle use good effort. Skin shows no rashes no pallor or icterus. No focal neuro deficits. Fall/head contusion/elevated blood pressurefortunately no serious injury, blood pressure improving, continue to titrate meds as an outpatient if needed. Otherwise as above. Stable for return to rehab Resident Activity Tracking Resident Involvement: Resident Care Provided Care Provided: Adult Hospital Medicine
--- NOTE | 2021-06-18 16:50 | Billing Data ---
Date of Service June 18, 2021 Coding Level of Care Code 46835 OBS Care - Discharge
[2021-06-18] MEDS ORDERED: ATORVASTATIN 20 MG TAB PO SCH (21:00)
[2021-06-18] MEDS ORDERED: SERTRALINE HCL 100 MG TABLET PO SCH (21:00)
--- NOTE | 2021-06-18 22:20 | Electrocardiogram Report ---
Test Reason : Blood Pressure : / mmHG Vent. Rate : 063 BPM Atrial Rate : 063 BPM P-R Int : 166 ms QRS Dur : 096 ms QT Int : 438 ms P-R-T Axes : 051 -35 062 degrees QTc Int : 448 ms Normal sinus rhythm Possible Left atrial enlargement Left axis deviation Left ventricular hypertrophy with repolarization abnormality Abnormal ECG When compared with ECG of 08-JUN-2021 08:53, Premature supraventricular complexes are no longer Present T wave inversion no longer evident in Lateral leads Confirmed by Ventura Monroe ([id number]) on 06/18/2021 10:19:49 PM Referred By: REFERRED SELF Confirmed By:Ventura Monroe
== END 2021-06-18 14:25 | DRG 605 ==
LOC: ED 20:11 → OBSVTOIN 06-18 02:06 → 2S 06-18 02:06 → SUATTDRO 06-18 02:06 → INTOOBSV 06-18 02:06 → 2S 06-18 03:45

== ENCOUNTER 2021-11-09 18:41 | Inpatient (IN) ==
--- NOTE | 2021-11-09 19:53 | Emergency Department Note ---
Impression & Plan Hypoxia ADMIT ED Provider Note HPI: The patient is an 86-year-old female with history of atrial fibrillation, CHF, aortic stenosis, presents the emergency department with altered mental status and hypoxia. According the patient's daughter at the bedside, the patient has had some confusion that was noted over the past several days by the patient's children. She has been somewhat more confused than usual, noted to have some increased work of breathing. On presentation here to the ED the patient was noted to be hypoxic at 85% on her baseline 4 L nasal cannula oxygen, she was therefore increased to an oxymask at 15 L with good improvement. On my initial assessment the patient is resting comfortably in bed on oxymask, it is my questions appropriately and does not have any focal deficits. Patient is now saturating at 92% on supplemental oxygen and is noted to be otherwise hemodynamically stable. ROS: -Pulmonary: Increased work of breathing/hypoxia -Neuro: Confusion *10 point review systems was conducted and is otherwise negative unless stated above *Outpatient medications and allergy history reviewed PE: General: Alert, NAD HEENT: Normocephalic, atraumatic Eyes: Extraocular eye movement is intact, no scleral erythema Pulmonary: Diminished bilateral breath sounds without wheezing or crackles Cardio: Regular rate and rhythm, systolic murmur noted GI: Abdomen is soft, nontender : No suprapubic tenderness MSK: No evidence of trauma or malformation of the extremities, no edema Skin: No evidence of rash Neuro: Alert, no focal deficits Psychiatric: 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 citrix 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: - An order was placed for continuous cardiac monitoring - Patient was noted to be in sinus rhythm with a rate of 80 EKG #1: Rate: 67 Rhythm: Sinus rhythm Intervals: Within normal limits ST changes: No ST elevation Time: 2042 EKG #2: Rate: 140 Rhythm: Atrial fibrillation with RVR Intervals: QTC 528, otherwise within normal limits ST changes: No ST elevation Time: 2116 Medical Decision Making: Patient presented to the emergency department with some increased work of breathing and confusion noted by family, she was noted to be hypoxic on arrival despite her baseline 4 L nasal cannula oxygen for which she wears for history of diastolic CHF and history of COPD. Shortly after arrival IV was established, lab work obtained, chest x-ray was obtained and shows evidence of pulmonary edema, patient was given a small dose of IV Lasix given her history of aortic stenosis as well. Patient remained stable otherwise on oxime mask, lab work shows evidence of a moderately elevated high-sensitivity troponin at 89, patient denies any chest pain and otherwise appears comfortable. COVID-19 testing was obtained and is negative, patient does not have any critical electrolyte abnormalities noted. While in the ED the patient did have tachycardia noted on the monitor, EKG was obtained for second time and shows evidence of atrial fibrillation with RVR. Patient does have a noted history of atrial fibrillation. She was given a small bolus of diltiazem at 5 mg and heart rate did improve into the low 100s from 140s. Blood pressure remained stable throughout. Patient remained stable on Oxymask at 15 L therefore did not escalate to BiPAP. Patient has not tolerated BiPAP well in the past according to her daughter at the bedside. Case was discussed with the on-call admitting hospitalist for [facility], Dr. Zhao, the patient was admitted in stable condition for further care of hypoxia and pulmonary edema as well as atrial fibrillation with RVR. * CRITICAL CARE TIME: 50 min -Stabilization of hypoxia with oxygen saturations less than 90% on baseline nasal cannula oxygen requiring escalation of supplemental oxygen for stabilization, administration of rate control agents for tachyarrhythmia/A. fib RVR, time spent at the bedside, arrangement of admission. Diagnosis: 1. Hypoxia, acute on chronic dCHF, pulmonary edema 2. Elevated high-sensitivity troponin 3. 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) Liver enzyme elevation Macular degeneration Mitral insufficiency Noncompliance Obesity Osteoarthritis Pulmonary edema Renal cell carcinoma Sinus bradycardia Vertigo Weakness Yeast dermatitis Surgical History Fusion of spine H/O left radical nephrectomy H/O partial nephrectomy History of anesthesia reaction History of bladder surgery History of cardiac cath History of carpal tunnel release History of cataract surgery History of colonoscopy History of esophagogastroduodenoscopy (EGD) History of hysterectomy History of thyroidectomy, subtotal History of tooth extraction History of total knee replacement Family History Brother History of colon resection Colorectal cancer Diabetes Prostate cancer Sister Breast cancer Mother Diabetes Coronary heart disease Father Myocardial infarction Denies family history of Ovarian cancer Social History Smoking Status: Never smoker Second Hand Exposure: No; Hx Alcohol Use: No Hx Substance Use: No Preferred Language: Portuguese Communication Ability: Effective Visual Impairment: No Limitations Hearing Ability: Normal Line Assigner Required: No Beliefs That Will Affect Care: None marital status: / Current Living Situation: Rehab Current Living Situation Comment: spouse lives in a home current occupational status: retired current occupation: used to be a [employer] How many Children do You have: 2 Feels Safe at Home: Yes Childhood Exposure to Second-Hand Smoke: No caffeine: Yes (soda rarley) Dental Care, Regularly: No Physical Activity Frequency: Daily Seatbelt Use: always Sunscreen Use: Yes Assistive Devices: Walker Allergies Allergies Allergy/AdvReac Type Severity Reaction Status Date / Time bee venom protein (honey bee) Allergy Intermediate HIVES Verified 11/09/21 21:39 oxycodone Allergy Unknown Unknown Verified 11/09/21 21:39 Sulfa (Sulfonamide Allergy Unknown MOUTH Verified 11/09/21 21:39 Antibiotics) SWELLED/HIVES TO SULFA DRUGS, chemical hepatitis gabapentin Allergy Rash Verified 11/09/21 21:39 nitrofurantoin AdvReac Severe CAUSES Verified 11/09/21 21:39 HEPATITUS hydromorphone AdvReac Intermediate HALLUCINATI Verified 11/09/21 21:39 ONS Home Meds Home Medications Medication Instructions Recorded Confirmed ascorbic acid (vitamin C) 500 mg 500 mg PO QAM 02/08/18 11/09/21 capsule aspirin 81 mg tablet,delayed 81 mg PO QAM 02/08/18 11/09/21 release cholecalciferol (vitamin D3) 25 1,000 unit PO QAM 02/08/18 11/09/21 mcg (1,000 unit) tablet (Vitamin D3) omega 3-cln-rfy-fish oil 1,000 mg 1 cap PO QAM 02/08/18 11/09/21 (120 mg-180 mg) capsule (Fish Oil) albuterol sulfate 90 mcg/actuation 2 inh inhalation Q4H PRN Wheezing 06/08/21 11/09/21 aerosol inhaler (Ventolin HFA) vitamin A-vitamin C-vit E-min 1 tab PO BID 06/18/21 11/09/21 tablet vitamin E (dl, acetate) 180 mg 360 mg PO DAILY 06/18/21 11/09/21 (400 unit) capsule docusate sodium 100 mg capsule 300 mg PO QPM 06/22/21 11/09/21 cranberry 400 mg capsule 400 mg PO DAILY 11/09/21 11/09/21 prednisone 5 mg tablet 2.5 mg PO DAILY 11/09/21 11/09/21 Previous Rx's Medication Instructions Recorded Oxygen Home #1 ea 10/19/18 atorvastatin 20 mg tablet 20 mg PO HS #90 tabs 11/03/20 furosemide 20 mg tablet (Lasix) 20 mg PO QAM PRN weight gain #270 12/25/20 tabs sertraline 100 mg tablet 100 mg PO PM #90 tabs 01/05/21 Flutter Valve #1 ea 02/03/21 Oxygen Home #4 L 05/18/21 doxazosin 4 mg tablet (Cardura) 4 mg PO Q12 #180 tabs 06/22/21 telmisartan 80 mg tablet 80 mg PO DAILY #90 tabs 06/22/21 fluocinonide 0.05 % topical cream 1 applic topical BID #60 grams 08/05/21 metoprolol succinate 100 mg 100 mg PO QAM #90 tabs 08/11/21 tablet,extended release 24 hr amlodipine 5 mg tablet 5 mg PO QAM #90 tabs 08/17/21 fluticasone 100 mcg-salmeterol 50 1 inh inhalation BID #60 ea 10/04/21 mcg/dose blistr powdr for inhalation (Advair Diskus) levothyroxine 150 mcg tablet 150 mcg PO DAILYBB #90 tabs 10/07/21 Results & Data (ED) Vital Signs Vital Signs - 24 hr 11/09/21 19:09 11/09/21 19:13 11/09/21 19:41 Temperature 36.8 C Temperature Source Temporal Artery Scan Pulse Rate 72 63 Pulse Rate from SpO2 Sensor Respiratory Rate 24 Respiratory Effort / Characteristics Non-Labored Spontaneous Respiratory Depth Normal Blood Pressure Blood Pressure Mean Pulse Oximetry 85 L 85 L 91 Oxygen Delivery Method Nasal Cannula Nasal Cannula Oxymask Oxygen Flow Rate 4 4 15 Sepsis Recent Fever Within 48 Hours No Sepsis New/Unexplained Change in Mental Status No Sepsis Action Taken by Nursing No Action Required Oxygen Flow Rate - Titration 15 Pulse Oximetry Post Tiitration 93 11/09/21 20:00 11/09/21 19:42 11/09/21 19:50 Temperature Temperature Source Pulse Rate 64 64 Pulse Rate from SpO2 Sensor 65 69 Respiratory Rate 28 H 28 H Respiratory Effort / Characteristics Respiratory Depth Normal Blood Pressure Blood Pressure Mean Pulse Oximetry 92 90 92 Oxygen Delivery Method Oxymask Oxygen Flow Rate 15 Sepsis Recent Fever Within 48 Hours Sepsis New/Unexplained Change in Mental Status Sepsis Action Taken by Nursing Oxygen Flow Rate - Titration Pulse Oximetry Post Tiitration 11/09/21 20:00 11/09/21 20:10 11/09/21 20:20 Temperature Temperature Source Pulse Rate 63 65 71 Pulse Rate from SpO2 Sensor 64 65 Respiratory Rate 25 H 27 H 34 H Respiratory Effort / Characteristics Respiratory Depth Blood Pressure Blood Pressure Mean Pulse Oximetry 96 95 Oxygen Delivery Method Oxygen Flow Rate Sepsis Recent Fever Within 48 Hours Sepsis New/Unexplained Change in Mental Status Sepsis Action Taken by Nursing Oxygen Flow Rate - Titration Pulse Oximetry Post Tiitration 11/09/21 20:30 11/09/21 20:40 11/09/21 20:50 Temperature Temperature Source Pulse Rate 64 63 65 Pulse Rate from SpO2 Sensor 60 66 68 Respiratory Rate 28 H 26 H 26 H Respiratory Effort / Characteristics Respiratory Depth Blood Pressure Blood Pressure Mean Pulse Oximetry 95 95 95 Oxygen Delivery Method Oxygen Flow Rate Sepsis Recent Fever Within 48 Hours Sepsis New/Unexplained Change in Mental Status Sepsis Action Taken by Nursing Oxygen Flow Rate - Titration Pulse Oximetry Post Tiitration 11/09/21 21:00 11/09/21 21:10 11/09/21 21:20 Temperature Temperature Source Pulse Rate 65 66 150 H Pulse Rate from SpO2 Sensor 69 65 135 H Respiratory Rate 27 H 27 H 29 H Respiratory Effort / Characteristics Respiratory Depth Blood Pressure Blood Pressure Mean Pulse Oximetry 94 94 96 Oxygen Delivery Method Oxygen Flow Rate Sepsis Recent Fever Within 48 Hours Sepsis New/Unexplained Change in Mental Status Sepsis Action Taken by Nursing Oxygen Flow Rate - Titration Pulse Oximetry Post Tiitration 11/09/21 21:30 11/09/21 21:34 11/09/21 21:34 Temperature Temperature Source Pulse Rate 143 H 142 H Pulse Rate from SpO2 Sensor 138 H 139 H Respiratory Rate 30 H 27 H Respiratory Effort / Characteristics Respiratory Depth Blood Pressure 136/103 H Blood Pressure Mean 114 Pulse Oximetry 94 93 Oxygen Delivery Method Oxygen Flow Rate Sepsis Recent Fever Within 48 Hours Sepsis New/Unexplained Change in Mental Status Sepsis Action Taken by Nursing Oxygen Flow Rate - Titration Pulse Oximetry Post Tiitration 11/09/21 21:40 11/09/21 21:50 11/09/21 22:00 Temperature Temperature Source Pulse Rate 133 H 132 H 119 H Pulse Rate from SpO2 Sensor 127 H 131 H 128 H Respiratory Rate 26 H 27 H 26 H Respiratory Effort / Characteristics Respiratory Depth Blood Pressure Blood Pressure Mean Pulse Oximetry 95 95 93 Oxygen Delivery Method Oxygen Flow Rate Sepsis Recent Fever Within 48 Hours Sepsis New/Unexplained Change in Mental Status Sepsis Action Taken by Nursing Oxygen Flow Rate - Titration Pulse Oximetry Post Tiitration 11/09/21 22:10 11/09/21 22:16 11/09/21 22:16 Temperature Temperature Source Pulse Rate 127 H 122 H Pulse Rate from SpO2 Sensor 113 H 125 H Respiratory Rate 23 26 H Respiratory Effort / Characteristics Respiratory Depth Blood Pressure 133/96 Blood Pressure Mean 108 Pulse Oximetry 94 91 Oxygen Delivery Method Oxygen Flow Rate Sepsis Recent Fever Within 48 Hours Sepsis New/Unexplained Change in Mental Status Sepsis Action Taken by Nursing Oxygen Flow Rate - Titration Pulse Oximetry Post Tiitration 11/09/21 22:20 11/09/21 22:30 11/09/21 22:31 Temperature Temperature Source Pulse Rate 131 H 136 H 126 H Pulse Rate from SpO2 Sensor 123 H 111 H 83 Respiratory Rate 26 H 27 H 26 H Respiratory Effort / Characteristics Respiratory Depth Blood Pressure Blood Pressure Mean Pulse Oximetry 94 93 91 Oxygen Delivery Method Oxygen Flow Rate Sepsis Recent Fever Within 48 Hours Sepsis New/Unexplained Change in Mental Status Sepsis Action Taken by Nursing Oxygen Flow Rate - Titration Pulse Oximetry Post Tiitration 11/09/21 22:31 11/09/21 22:00 11/10/21 00:00 Temperature Temperature Source Pulse Rate Pulse Rate from SpO2 Sensor Respiratory Rate Respiratory Effort / Characteristics Non-Labored Non-Labored Respiratory Depth Normal Normal Blood Pressure 154/107 H Blood Pressure Mean 122 Pulse Oximetry 93 Oxygen Delivery Method Oxymask Oxygen Flow Rate 15 Sepsis Recent Fever Within 48 Hours Sepsis New/Unexplained Change in Mental Status Sepsis Action Taken by Nursing Oxygen Flow Rate - Titration Pulse Oximetry Post Tiitration Laboratory Data Result diagrams: 11/09/21 19:30 11/09/21 19:30 Lab Results 11/09/21 11/09/21 11/09/21 Range/Units 19:30 19:30 19:30 WBC 9.83 (4.8-10.8) K/ul RBC 3.99 (3.93-5.22) M/uL Hgb 11.6 L (12.0-16.0) g/dl Hct 35.9 (34.1-44.9) % MCV 90.0 (80.0-100.0) fL MCH 29.1 (25.0-34.0) pg MCHC 32.3 (32.0-36.0) g/dL RDW Std Deviation 50.6 H (36.4-46.3) fL RDW Coeff of Yanelis 15.4 H (11.5-14.5) % Plt Count 173 (130-400) K/uL MPV 10.2 (9.4-12.3) fL Immature Gran % (Auto) 0.6 % Neut % (Auto) 82.4 % Lymph % (Auto) 6.7 % [place] % (Auto) 9.3 % Eos % (Auto) 0.5 % Baso % (Auto) 0.5 % Neut # (Auto) 8.10 H (1.4-6.5) K/uL Lymph # (Auto) 0.66 L (1.2-3.4) K/uL [place] # (Auto) 0.91 H (0.24-0.82) K/uL Eos # (Auto) 0.05 (0-0.50) K/uL Baso # (Auto) 0.05 (0-0.2) K/uL Immature Gran # (Auto) 0.06 H (0.00-0.02) K/uL PT 13.5 H (9.0-12.0) Seconds INR 1.3 H (0.9-1.1) APTT 33.0 H (21.0-31.0) Seconds PTT Ratio 1.2 VBG pH (7.36-7.41) VBG pCO2 (38-50) mmHg VBG pO2 mmHg VBG HCO3 mmol/L VBG O2 Saturation % VBG Base Excess mEq/L Sodium 140 (136-145) mmol/L Potassium 3.7 (3.5-5.1) mmol/L Chloride 104 (98-107) mmol/L Carbon Dioxide 30 (21-32) mmol/L Anion Gap 6 (3-11) BUN 23 (6-23) mg/dl Creatinine 1.12 (0.6-1.2) mg/dl Est Cr Clr Drug Dosing Not Reportable Est GFR ( Amer) 51.2 ml/min Est GFR (Non-Af Amer) 44.1 ml/min BUN/Creatinine Ratio 20.5 H (10-20) Glucose 107 H (70-99(Fasting)) mg/dl Calcium 9.2 (8.5-10.1) mg/dl Magnesium (1.7-2.4) mg/dl Total Bilirubin 1.3 H (0.2-1.0) mg/dl AST 26 (13-39) U/L ALT 27 (7-52) U/L Alkaline Phosphatase 58 (34-104) U/L Troponin I High Sens 89.0 H* (0-14) pg/ml Total Protein 6.4 (6.0-8.3) gm/dl Albumin 4.1 (3.4-5.0) gm/dl Globulin 2.3 L (2.5-4.0) gm/dl Albumin/Globulin Ratio 1.8 (0.9-2) Urine Color Urine Appearance (Clear) Urine pH (4.5-7.5) Ur Specific [place] (1.000-1.030) Urine Protein (Negative) Urine Glucose (UA) (Negative) Urine Ketones (Negative) Urine Blood (Negative) Urine Nitrite (Negative) Urine Bilirubin (Negative) Urine Urobilinogen (Negative) Ur Leukocyte Esterase (Negative) Urine WBC (Auto) (0-5) /hpf Urine RBC (Auto) (0-4) /hpf U Hyaline Cast (Auto) (0-5) /lpf U Epithel Cells (Auto) (0-5) /lpf Urine Bacteria (Auto) (Negative) SARS-CoV-2 (PCR) (Negative) Influenza Type A (PCR) (Neg) Influenza Type B (PCR) (Neg) RSV (RT-PCR) (Neg) 11/09/21 11/09/21 11/09/21 Range/Units 19:30 20:07 21:37 WBC (4.8-10.8) K/ul RBC (3.93-5.22) M/uL Hgb (12.0-16.0) g/dl Hct (34.1-44.9) % MCV (80.0-100.0) fL MCH (25.0-34.0) pg MCHC (32.0-36.0) g/dL RDW Std Deviation (36.4-46.3) fL RDW Coeff of Yanelis (11.5-14.5) % Plt Count (130-400) K/uL MPV (9.4-12.3) fL Immature Gran % (Auto) % Neut % (Auto) % Lymph % (Auto) % [place] % (Auto) % Eos % (Auto) % Baso % (Auto) % Neut # (Auto) (1.4-6.5) K/uL Lymph # (Auto) (1.2-3.4) K/uL [place] # (Auto) (0.24-0.82) K/uL Eos # (Auto) (0-0.50) K/uL Baso # (Auto) (0-0.2) K/uL Immature Gran # (Auto) (0.00-0.02) K/uL PT (9.0-12.0) Seconds INR (0.9-1.1) APTT (21.0-31.0) Seconds PTT Ratio VBG pH 7.47 H (7.36-7.41) VBG pCO2 43 (38-50) mmHg VBG pO2 43 mmHg VBG HCO3 31 mmol/L VBG O2 Saturation 69.4 % VBG Base Excess 6.8 mEq/L Sodium (136-145) mmol/L Potassium (3.5-5.1) mmol/L Chloride (98-107) mmol/L Carbon Dioxide (21-32) mmol/L Anion Gap (3-11) BUN (6-23) mg/dl Creatinine (0.6-1.2) mg/dl Est Cr Clr Drug Dosing Est GFR ( Amer) ml/min Est GFR (Non-Af Amer) ml/min BUN/Creatinine Ratio (10-20) Glucose (70-99(Fasting)) mg/dl Calcium (8.5-10.1) mg/dl Magnesium 1.6 L (1.7-2.4) mg/dl Total Bilirubin (0.2-1.0) mg/dl AST (13-39) U/L ALT (7-52) U/L Alkaline Phosphatase (34-104) U/L Troponin I High Sens (0-14) pg/ml Total Protein (6.0-8.3) gm/dl Albumin (3.4-5.0) gm/dl Globulin (2.5-4.0) gm/dl Albumin/Globulin Ratio (0.9-2) Urine Color Urine Appearance (Clear) Urine pH (4.5-7.5) Ur Specific [place] (1.000-1.030) Urine Protein (Negative) Urine Glucose (UA) (Negative) Urine Ketones (Negative) Urine Blood (Negative) Urine Nitrite (Negative) Urine Bilirubin (Negative) Urine Urobilinogen (Negative) Ur Leukocyte Esterase (Negative) Urine WBC (Auto) (0-5) /hpf Urine RBC (Auto) (0-4) /hpf U Hyaline Cast (Auto) (0-5) /lpf U Epithel Cells (Auto) (0-5) /lpf Urine Bacteria (Auto) (Negative) SARS-CoV-2 (PCR) NEGATIVE (Negative) Influenza Type A (PCR) Negative (Neg) Influenza Type B (PCR) Negative (Neg) RSV (RT-PCR) Negative (Neg) 11/09/21 Range/Units 22:27 WBC (4.8-10.8) K/ul RBC (3.93-5.22) M/uL Hgb (12.0-16.0) g/dl Hct (34.1-44.9) % MCV (80.0-100.0) fL MCH (25.0-34.0) pg MCHC (32.0-36.0) g/dL RDW Std Deviation (36.4-46.3) fL RDW Coeff of Yanelis (11.5-14.5) % Plt Count (130-400) K/uL MPV (9.4-12.3) fL Immature Gran % (Auto) % Neut % (Auto) % Lymph % (Auto) % [place] % (Auto) % Eos % (Auto) % Baso % (Auto) % Neut # (Auto) (1.4-6.5) K/uL Lymph # (Auto) (1.2-3.4) K/uL [place] # (Auto) (0.24-0.82) K/uL Eos # (Auto) (0-0.50) K/uL Baso # (Auto) (0-0.2) K/uL Immature Gran # (Auto) (0.00-0.02) K/uL PT (9.0-12.0) Seconds INR (0.9-1.1) APTT (21.0-31.0) Seconds PTT Ratio VBG pH (7.36-7.41) VBG pCO2 (38-50) mmHg VBG pO2 mmHg VBG HCO3 mmol/L VBG O2 Saturation % VBG Base Excess mEq/L Sodium (136-145) mmol/L Potassium (3.5-5.1) mmol/L Chloride (98-107) mmol/L Carbon Dioxide (21-32) mmol/L Anion Gap (3-11) BUN (6-23) mg/dl Creatinine (0.6-1.2) mg/dl Est Cr Clr Drug Dosing Est GFR ( Amer) ml/min Est GFR (Non-Af Amer) ml/min BUN/Creatinine Ratio (10-20) Glucose (70-99(Fasting)) mg/dl Calcium (8.5-10.1) mg/dl Magnesium (1.7-2.4) mg/dl Total Bilirubin (0.2-1.0) mg/dl AST (13-39) U/L ALT (7-52) U/L Alkaline Phosphatase (34-104) U/L Troponin I High Sens (0-14) pg/ml Total Protein (6.0-8.3) gm/dl Albumin (3.4-5.0) gm/dl Globulin (2.5-4.0) gm/dl Albumin/Globulin Ratio (0.9-2) Urine Color Yellow Urine Appearance Cloudy A (Clear) Urine pH 7.0 (4.5-7.5) Ur Specific [place] 1.011 (1.000-1.030) Urine Protein Trace H (Negative) Urine Glucose (UA) Negative (Negative) Urine Ketones Negative (Negative) Urine Blood Negative (Negative) Urine Nitrite Negative (Negative) Urine Bilirubin Negative (Negative) Urine Urobilinogen Negative (Negative) Ur Leukocyte Esterase Negative (Negative) Urine WBC (Auto) 1-5 (0-5) /hpf Urine RBC (Auto) 0-4 (0-4) /hpf U Hyaline Cast (Auto) 0 (0-5) /lpf U Epithel Cells (Auto) 5-10 H (0-5) /lpf Urine Bacteria (Auto) Negative (Negative) SARS-CoV-2 (PCR) (Negative) Influenza Type A (PCR) (Neg) Influenza Type B (PCR) (Neg) RSV (RT-PCR) (Neg) Administered Medications Discontinued Medications Diltiazem HCl (Diltiazem Hcl 5 Mg/Ml 5 Ml Vial) 5 mg IV NOW STA Stop: 11/09/21 21:32 Last Admin: 11/09/21 21:52 Dose: 5 mg Documented By: [email or web address] Co-signed By: ANGUS Furosemide (Furosemide Inj 20 Mg/2 Ml Vial) 20 mg IV ONE ONE Stop: 11/09/21 20:45 Last Admin: 11/09/21 21:03 Dose: 20 mg Documented By: RAJEEV Magnesium Sulfate/Dextrose (Magnesium Sulfate / D5w) 1 gm in 100 mls @ 100 mls/hr IV Q1H JACQUES Stop: 11/09/21 23:48 Last Admin: 11/09/21 23:15 Dose: 100 mls/hr Documented By: Infusion: 11/09/21 23:15 Dose: 0 mls/hr Documented By: Admin: 11/09/21 22:17 Dose: 100 mls/hr Documented By: [email or web address] Imaging Data Radiologist's Impression: Chest X-Ray 11/09/21 19:41 XR chest 1V portable HISTORY: 86 years-old Female Dyspnea acute shortness of breath with hypoxia COMPARISON: Chest radiograph 06/18/2021 TECHNIQUE: Portable AP view of the chest FINDINGS: Cardiac silhouette is enlarged. Atherosclerosis of the aorta. Bilateral mixed interstitial and alveolar opacities are noted. No pneumothorax. Trace right and small left pleural effusions. Degenerative changes of the shoulders and spine. 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 IMPRESSION: 1. Cardiomegaly with mixed interstitial and alveolar opacities suggestive of pulmonary edema versus multifocal pneumonia. 2. Trace right and small left pleural effusions. ACT 112: Negative or not required by law. The above report was generated using voice recognition software. It may contain grammatical, syntax or spelling errors. Electronically signed by: Ayush Partida M.D. 11/09/2021 8:37 PM Discharge Plan Visit Data Chief Complaint: Confusion Stated Complaint: CHF, UTI, VOMITING, CONFUSED ED Provider: Immanuel Waldron Discharge Problem: Hypoxia Patient Disposition: Admitted As Inpatient Forms Stand Alone Forms: [facility] Prescriptions Prescriptions: No Action atorvastatin 20 mg tablet 20 mg PO HS Qty: 90 3RF furosemide [Lasix] 20 mg tablet 20 mg PO QAM PRN (Reason: weight gain) Qty: 270 1RF sertraline 100 mg tablet 100 mg PO PM Qty: 90 3RF metoprolol succinate 100 mg tablet extended release 24 hr 100 mg PO QAM Qty: 90 3RF amlodipine 5 mg tablet 5 mg PO QAM Qty: 90 3RF fluticasone propion-salmeterol [Advair Diskus] 100-50 mcg/dose blister with device 1 inh inhalation BID Qty: 60 3RF (DME) Oxygen Home Liters Per Minute See Dose Instructions .ROUTE .MEDSUPPLY Qty: 1 0RF Dose Instruction: As directed Rx Instructions: Portable concentrator due to arthritis and difficulty with changing the regulators. Also chronic disc disease and back pain make carrying current tanks unmanageable. doxazosin [Cardura] 4 mg tablet 4 mg PO Q12 Qty: 180 3RF telmisartan 80 mg tablet 80 mg PO DAILY Qty: 90 3RF fluocinonide 0.05 % cream 1 applic topical BID Qty: 60 0RF Rx Instructions: Apply to areas of the legs twice daily x 2 weeks as directed. levothyroxine 150 mcg tablet 150 mcg PO DAILYBB Qty: 90 3RF (DME) Flutter Valve Device See Rx Instructions .ROUTE .MEDSUPPLY Qty: 1 0RF Rx Instructions: Use 2-3 times daily or as needed. Lifetime need. cholecalciferol (vitamin D3) [Vitamin D3] 1,000 unit Tablet 1,000 unit PO QAM docusate sodium 100 mg capsule 300 mg PO QPM aspirin 81 mg Tablet,Delayed Release (Dr/Ec) 81 mg PO QAM omega [id number]-fish oil [Fish Oil] 1,000 mg (120 mg-180 mg) Capsule 1 cap PO QAM ascorbic acid (vitamin C) 500 mg Capsule 500 mg PO QAM (DME) Oxygen Home Liters Per Minute See Rx Instructions .Route Qty: 4 0RF Rx Instructions: As directed cranberry 400 mg Capsule 400 mg PO DAILY Rx Instructions: administer with a meal prednisone 5 mg tablet 2.5 mg PO DAILY Rx Instructions: 3 more days @ 2.5mg then done. albuterol sulfate [Ventolin HFA] 90 mcg/actuation HFA aerosol inhaler 2 inh inhalation Q4H PRN (Reason: Wheezing) Rx Instructions: USE 2 INHALATIONS EVERY 4 HOURS NEEDED vitamin E (dl, acetate) 180 mg (400 unit) Capsule 360 mg PO DAILY vitamin A-vitamin C-vit E-min Tablet 1 tab PO BID Referrals Referrals: Amador Coleman MD [Primary Care Provider] -
[2021-11-09 19:55] LABS: Basophils # (auto) 0.05 K/uL (0-0.2); Basophils % (auto) 0.5 %; Eosinophils # (auto) 0.05 K/uL (0-0.50); Eosinophils % (auto) 0.5 %; Hematocrit (blood only) 35.9 % (34.1-44.9); Hemoglobin 11.6 g/dl (12.0-16.0); Immature Granulocytes # (auto) 0.06 K/uL (0.00-0.02); Immature Granulocytes % (auto) 0.6 %; Lymphocytes # (auto) 0.66 K/uL (1.2-3.4); Lymphocytes % (auto) 6.7 %; Mean Corpuscular Hemoglobin 29.1 pg (25.0-34.0); Mean Corpuscular Hgb Conc 32.3 g/dL (32.0-36.0); Mean Platelet Volume 10.2 fL (9.4-12.3); Monocytes # (auto) 0.91 K/uL (0.24-0.82); Monocytes % (auto) 9.3 %; Neutrophils % (auto) 82.4 %; Platelet Count 173 K/uL (130-400); RDW Coefficient of Variation 15.4 % (11.5-14.5); RDW Standard Deviation 50.6 fL (36.4-46.3); Red Blood Count 3.99 M/uL (3.93-5.22); White Blood Count 9.83 K/ul (4.8-10.8)
[2021-11-09 20:09] LABS: INR 1.3 (0.9-1.1); Partial Thromboplastin Ratio 1.2; Prothrombin Time 13.5 Seconds (9.0-12.0)
[2021-11-09 20:15] LABS: Base Excess VBG 6.8 mEq/L; HCO3 VBG 31 mmol/L; Oxygen Saturation VBG 69.4 %; PCO2 VBG 43 mmHg (38-50); PO2 VBG 43 mmHg; pH VBG 7.47 (7.36-7.41)
[2021-11-09 20:26] LABS: Alanine Aminotransferase 27 U/L (7-52); Albumin Globulin Ratio 1.8 (0.9-2); Albumin Level 4.1 gm/dl (3.4-5.0); Alkaline Phosphatase 58 U/L (34-104); Anion Gap 6 (3-11); Aspartate Aminotransferase 26 U/L (13-39); BUN Creatinine Ratio 20.5 (10-20); Bilirubin,Total 1.3 mg/dl (0.2-1.0); Blood Urea Nitrogen 23 mg/dl (6-23); Calcium 9.2 mg/dl (8.5-10.1); Carbon Dioxide 30 mmol/L (21-32); Chloride 104 mmol/L (98-107); Est GFR (African American) 51.2 ml/min; Est GFR (Non-African American) 44.1 ml/min; Globulin 2.3 gm/dl (2.5-4.0); Glucose 107 mg/dl (70-99(Fasting)); Potassium 3.7 mmol/L (3.5-5.1); Sodium 140 mmol/L (136-145); Total Protein 6.4 gm/dl (6.0-8.3)
--- NOTE | 2021-11-09 20:38 | XRay Report ---
XR chest 1V portable HISTORY: 86 years-old Female Dyspnea acute shortness of breath with hypoxia COMPARISON: Chest radiograph 06/18/2021 TECHNIQUE: Portable AP view of the chest FINDINGS: Cardiac silhouette is enlarged. Atherosclerosis of the aorta. Bilateral mixed interstitial and alveol ar opacities are noted. No pneumothorax. Trace right and small left pleural effusions. Degenerative c hanges of the shoulders and spine. 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 IMPRESSION: 1. Cardiomegaly with mixed interstitial and alveolar opacities suggestive of pulmonary edema versus m ultifocal pneumonia. 2. Trace right and small left pleural effusions. ACT 112: Negative or not required by law. The above report was generated using voice recognition software. It may contain grammatical, syntax o r spelling errors. Electronically signed by: Ayush Partida M.D. 11/09/2021 8:37 PM
[2021-11-09] MEDS ORDERED: FUROSEMIDE INJ 20 MG/2 ML VIAL IV ONE (20:44)
[2021-11-09] MEDS ORDERED: dilTIAZem HCl 5 MG/ML 5 ML VIAL IV STA (21:31)
--- NOTE | 2021-11-09 22:10 | History & Physical Report ---
Date of Service November 09, 2021 Assessment & Plan (1) Hypoxia: Plan: 86-year-old female with history of asthma/COPD on home oxygen of 4 L by nasal cannula, heart failure with preserved EF, moderate aortic stenosis, persistent dyspnea presenting with progressive shortness of breath and confusion. Patient hypoxic in the ER at 85% on her normal 4 L of oxygen. Improvement noted with oxime mask. Presently saturating 94% on 15 L. Breathing comfortably with no respiratory distress. Most likely secondary to volume overload, crackles on exam, pulmonary edema suggested on chest x-ray. Possibly secondary to atrial fibrillation as well. Patient is afebrile with no leukocytosis, does not endorse symptoms of pneumonia. Admit to medical with telemetry Check BNP Lasix 20 mg IV given in the ER. Monitor output and redose as needed. Cautious diuresis and patient with moderate aortic stenosis Daily weights, I's/O monitoring Continue supplemental oxygen as needed (2) Atrial fibrillation: Plan: Patient with remote history of atrial fibrillation. Did go into atrial fibrillation while in the ER. Rates of 140s, administered diltiazem with some improvement Continue metoprolol 100 mg p.o. daily Metoprolol 5 mg IV every 4 hours as needed for heart rate greater than 120 Discussed anticoagulation (3) COPD (chronic obstructive pulmonary disease): Plan: Patient with COPD/asthma. She follows with pulmonary. Was recently started on Advair. Was on chronic longstanding prednisone daily for undetermined reason which is being decreased Continue prednisone 2.5 mg daily, continue weaning as instructed Continue Advair Albuterol as needed (4) Hypertension: Plan: Chronic. Presently 134/100 Continue amlodipine 5 mg p.o. every morning Continue metoprolol 100 mg p.o. every morning Continue telmisartan 80 mg p.o. daily Continue to monitor (5) Hypothyroidism: Plan: Chronic. Patient recently had her Synthroid dose increased to 150 mcg daily by PCP during October appointment Continue Synthroid Check TSH with a.m. labs (6) Stage III chronic kidney disease: Plan: BUN and creatinine near baseline Avoid nephrotoxic agents Repeat BMP in a.m. (7) Hyperlipidemia: Plan: Chronic. Stable. Continue atorvastatin 20 mg p.o. nightly F/E/NLasix 20 mg IV given as above, redosed as needed, repeat BMP in a.m., low- sodium diet as tolerated ProphylaxisHeparin for DVT prophylaxis CodeDNR/DNI per discussion with patient Dispoadmit to medical telemetry History of Present Illness Chief Complaint: Shortness of breath Primary Care Provider: Amador Coleman MD Ruthy Vaughn is an 86-year-old female with multiple medical problems to include COPD/asthma on 4 L of home oxygen, heart failure with preserved EF (65 to 70% per echo 2dauter endorses 2 previous admissions for CHF exacerbations over the last year) with moderate aortic stenosis, CKD, hypertension, hyperlipidemia. Patient presents with 1 to 2 days of progressive shortness of breath as well as confusion. Patient reports she has had some nausea and vomiting and feels short of breath at times. She has also had a cough productive for clear/white sputum, some mild facial swelling and lower extremity edema and possibly some worsening orthopnea. Patient's goal weight is 160 pounds with instruction to take Lasix 20 mg p.o. as needed for weight gain over 3 pounds in a day. She does report needing to take 2 doses of Lasix this week. Her weight did decrease in response to the L asix. She denies fevers, chills, chest pain, abdominal pain. In the ER patient presented on her usual 4 L of oxygen by nasal cannula and was found to be hypoxic at 85%. She was transitioned to supplemental oxygen by oxime mask15 L with improvement in saturation to 92%. Patient has no additional complaints at this time. Feels that her breathing is improved. She did go into atrial fibrillation with RVR while in the ER with rates in the 140s and was administered 5 mg of IV diltiazem as well as 2 g of magnesium. Heart rate presently 124 bpm. ER course: Lasix 20 mg IV, magnesium 2 g IV, diltiazem 5 mg IV Allergies Allergy/AdvReac Type Severity Reaction Status Date / Time bee venom protein (honey bee) Allergy Intermediate HIVES Verified 11/09/21 21:39 oxycodone Allergy Unknown Unknown Verified 11/09/21 21:39 Sulfa (Sulfonamide Allergy Unknown MOUTH Verified 11/09/21 21:39 Antibiotics) SWELLED/HIVES TO SULFA DRUGS, chemical hepatitis gabapentin Allergy Rash Verified 11/09/21 21:39 nitrofurantoin AdvReac Severe CAUSES Verified 09/06/22 21:39 HEPATITUS hydromorphone AdvReac Intermediate HALLUCINATI Verified 11/09/21 21:39 ONS Home Medications Medication Instructions Recorded Confirmed Type ascorbic acid (vitamin C) 500 mg 500 mg PO QAM 02/08/18 11/09/21 History capsule aspirin 81 mg tablet,delayed 81 mg PO QAM 02/08/18 11/09/21 History release cholecalciferol (vitamin D3) 25 1,000 unit PO QAM 02/08/18 11/09/21 History mcg (1,000 unit) tablet (Vitamin D3) omega 6-ioa-fes-fish oil 1,000 mg 1 cap PO QAM 02/08/18 11/09/21 History (120 mg-180 mg) capsule (Fish Oil) Oxygen Home #1 ea 10/19/18 10/22/21 Rx atorvastatin 20 mg tablet 20 mg PO HS #90 tabs 11/03/20 11/09/21 Rx furosemide 20 mg tablet (Lasix) 20 mg PO QAM PRN weight gain #270 12/25/20 11/09/21 Rx tabs sertraline 100 mg tablet 100 mg PO PM #90 tabs 01/05/21 11/09/21 Rx Flutter Valve #1 ea 02/03/21 10/22/21 Rx Oxygen Home #4 L 05/18/21 10/22/21 Rx albuterol sulfate 90 mcg/actuation 2 inh inhalation Q4H PRN Wheezing 06/08/21 11/09/21 History aerosol inhaler (Ventolin HFA) vitamin A-vitamin C-vit E-min 1 tab PO BID 06/18/21 11/09/21 History tablet vitamin E (dl, acetate) 180 mg 360 mg PO DAILY 06/18/21 11/09/21 History (400 unit) capsule docusate sodium 100 mg capsule 300 mg PO QPM 06/22/21 11/09/21 History doxazosin 4 mg tablet (Cardura) 4 mg PO Q12 #180 tabs 06/22/21 11/09/21 Rx telmisartan 80 mg tablet 80 mg PO DAILY #90 tabs 06/22/21 11/09/21 Rx fluocinonide 0.05 % topical cream 1 applic topical BID #60 grams 08/05/21 11/09/21 Rx metoprolol succinate 100 mg 100 mg PO QAM #90 tabs 08/11/21 11/09/21 Rx tablet,extended release 24 hr amlodipine 5 mg tablet 5 mg PO QAM #90 tabs 08/17/21 11/09/21 Rx fluticasone 100 mcg-salmeterol 50 1 inh inhalation BID #60 ea 10/04/21 11/09/21 Rx mcg/dose blistr powdr for inhalation (Advair Diskus) levothyroxine 150 mcg tablet 150 mcg PO DAILYBB #90 tabs 10/07/21 11/09/21 Rx cranberry 400 mg capsule 400 mg PO DAILY 11/09/21 11/09/21 History prednisone 5 mg tablet 2.5 mg PO DAILY 11/09/21 11/09/21 History Past Med/Surg History Medical History Anxiety Asthma Asymptomatic postmenopausal status Atrial fibrillation Breast lump Carpal tunnel syndrome of left wrist Chronic kidney disease Degenerative disc disease Depression Dermatitis Dyspnea Fatigue Hypercholesterolemia Hyperlipidemia Hypertension Hypothyroidism Hypoxia Hypoxia 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) Liver enzyme elevation Macular degeneration Mitral insufficiency Noncompliance Obesity Osteoarthritis Pulmonary edema Renal cell carcinoma Sinus bradycardia Vertigo Weakness Yeast dermatitis Surgical History Fusion of spine H/O left radical nephrectomy H/O partial nephrectomy History of anesthesia reaction History of bladder surgery History of cardiac cath History of carpal tunnel release History of cataract surgery History of colonoscopy History of esophagogastroduodenoscopy (EGD) History of hysterectomy History of thyroidectomy, subtotal History of tooth extraction History of total knee replacement Family History Brother History of colon resection Colorectal cancer Diabetes Prostate cancer Sister Breast cancer Mother Diabetes Coronary heart disease Father Myocardial infarction Denies family history of Ovarian cancer Social History Smoking Status: Never smoker Second Hand Exposure: No; Hx Alcohol Use: No Hx Substance Use: No Preferred Language: [place] Communication Ability: Effective Visual Impairment: No Limitations Hearing Ability: Normal Help Desk Support Required: No Beliefs That Will Affect Care: None marital status: / Current Living Situation: Rehab Current Living Situation Comment: spouse lives in a home current occupational status: retired 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 How many Children do You have: 2 Feels Safe at Home: Yes Childhood Exposure to Second-Hand Smoke: No caffeine: Yes (soda rarley) Dental Care, Regularly: No Physical Activity Frequency: Daily Seatbelt Use: always Sunscreen Use: Yes Assistive Devices: Walker Review of Systems Review of Systems: All systems reviewed & are unremarkable except as noted in HPI & below Physical Exam Physical Exam: General: Frail, elderly female patient resting comfortably, NAD, non-toxic in appearance, answers questions appropriate Skin: warm, dry, intact, no rashes or lesions HEENT: NC/AT, PERRL, EOMI, anicteric sclera, conjunctiva without injection, external ear normal to inspection and nontender, nares patent, moist mucus membranes, dentition intact, no oropharyngeal lesions, neck supple, trachea midline, no LAD, no thyromegaly, no JVD Heart: +S1/S2, irregularly irregular, tachycardic, 4/6 systolic ejection murmur across precordium with radiation to bilateral carotids Lungs: equal air entry bilaterally, + crackles to midlung field bilaterally, no wheezing Abd: +BS, soft, NT/ND, no masses/organomegaly/ascites Ext: warm, 2+ pulses in UE/LE bilaterally, no clubbing/cyanosis, trace to 1+ pitting edema bilateral lower extremities Neuro: nonfocal, speech intact, no facial droop, moving all extremities on command with equal strength 5/5 Results & Data Results & Data ([facility]) Vital Signs (Past 12 Hours) Vital Signs Temp Pulse Resp Pulse Ox O2 Del Method O2 Flow Rate 11/09/21 20:00 92 Oxymask 15 11/09/21 19:41 63 91 Oxymask 15 11/09/21 19:13 85 L Nasal Cannula 4 11/09/21 19:09 36.8 C 72 24 85 L Nasal Cannula 4 Laboratory Results Laboratory Results WBC 9.83 K/ul (4.8-10.8) 11/09/21 19:30 RBC 3.99 M/uL (3.93-5.22) 11/09/21 19:30 Hgb 11.6 g/dl (12.0-16.0) L 11/09/21 19:30 Hct 35.9 % (34.1-44.9) 11/09/21 19: MCV 90.0 fL (80.0-100.0) 11/09/21: MCH 29.1 pg (25.0-34.0) 11/09/21: MCHC 32.3 g/dL (32.0-36.0) 11/09/21: RDW Std Deviation 50.6 fL (36.4-46.3) H 11/09/21: RDW Coeff of Yanelis 15.4 % (11.5-14.5) H 11/09/21: Plt Count 173 K/uL (130-400) 11/09/21: MPV 10.2 fL (9.4-12.3) 11/09/21: Immature Gran % (Auto) 0.6 % 11/09/21: Neut % (Auto) 82.4 % 11/09/21: Lymph % (Auto) 6.7 % 11/09/21: [place] % (Auto) 9.3 % 11/09/21: Eos % (Auto) 0.5 % 11/09/21: Baso % (Auto) 0.5 % 11/09/21: Neut # (Auto) 8.10 K/uL (1.4-6.5) H 11/09/21: Lymph # (Auto) 0.66 K/uL (1.2-3.4) L 11/09/21: [place] # (Auto) 0.91 K/uL (0.24-0.82) H 11/09/21: Eos # (Auto) 0.05 K/uL (0-0.50) 11/09/21: Baso # (Auto) 0.05 K/uL (0-0.2) 11/09/21: Immature Gran # (Auto) 0.06 K/uL (0.00-0.02) H 11/09/21: PT 13.5 Seconds (9.0-12.0) H 11/09/21: INR 1.3 (0.9-1.1) H 09/06/22 19:30 APTT 33.0 Seconds (21.0-31.0) H 11/09/21 19:30 PTT Ratio 1.2 11/09/21 19:30 VBG pH 7.47 (7.36-7.41) H 11/09/21 20:07 VBG pCO2 43 mmHg (38-50) 11/09/21 20:07 VBG pO2 43 mmHg 11/09/21 20:07 VBG HCO3 31 mmol/L 11/09/21 20:07 VBG O2 Saturation 69.4 % 11/09/21 20:07 VBG Base Excess 6.8 mEq/L 11/09/21 20:07 Sodium 140 mmol/L (136-145) 11/09/21 19:30 Potassium 3.7 mmol/L (3.5-5.1) 11/09/21 19:30 Chloride 104 mmol/L (98-107) 11/09/21 19:30 Carbon Dioxide 30 mmol/L (21-32) 11/09/21 19:30 Anion Gap 6 (3-11) 11/09/21 19:30 BUN 23 mg/dl (6-23) 11/09/21 19:30 Creatinine 1.12 mg/dl (0.6-1.2) 11/09/21 19:30 Est Cr Clr Drug Dosing Not Reportable 11/09/21 19:30 Est GFR ( Amer) 51.2 ml/min 11/09/21 19:30 Est GFR (Non-Af Amer) 44.1 ml/min 11/09/21 19:30 BUN/Creatinine Ratio 20.5 (10-20) H 11/09/21 19:30 Glucose 107 mg/dl (70-99(Fasting)) H 11/09/21 19:30 Calcium 9.2 mg/dl (8.5-10.1) 11/09/21 19:30 Magnesium 1.6 mg/dl (1.7-2.4) L 11/09/21 19:30 Total Bilirubin 1.3 mg/dl (0.2-1.0) H 11/09/21 19:30 AST 26 U/L (13-39) 11/09/21 19:30 ALT 27 U/L (7-52) 11/09/21 19:30 Alkaline Phosphatase 58 U/L (34-104) 11/09/21 19: Troponin I High Sens 89.0 pg/ml (0-14) H* 11/09/21 19:30 Total Protein 6.4 gm/dl (6.0-8.3) 11/09/21 19: Albumin 4.1 gm/dl (3.4-5.0) 11/09/21 19: Globulin 2.3 gm/dl (2.5-4.0) L 11/09/21: Albumin/Globulin Ratio 1.8 (0.9-2) 11/09/21 19: Urine Color Yellow 11/09/21 22: Urine Appearance Cloudy (Clear) A 11/09/21 22: Urine pH 7.0 (4.5-7.5) 11/09/21 22: Ur Specific [place] 1.011 (1.000-1.030) 11/09/21 22: Urine Protein Trace (Negative) H 11/09/21 22:27 Urine Glucose (UA) Negative (Negative) 11/09/21 22: Urine Ketones Negative (Negative) 11/09/21 22: Urine Blood Negative (Negative) 11/09/21 22: Urine Nitrite Negative (Negative) 11/09/21 22: Urine Bilirubin Negative (Negative) 11/09/21 22: Urine Urobilinogen Negative (Negative) 11/09/21 22:27 Ur Leukocyte Esterase Negative (Negative) 11/09/21 22:27 Urine WBC (Auto) 1-5 /hpf (0-5) 11/09/21 22: Urine RBC (Auto) 0-4 /hpf (0-4) 11/09/21 22:27 U Hyaline Cast (Auto) 0 /lpf (0-5) 11/09/21 22:27 U Epithel Cells (Auto) 5-10 /lpf (0-5) H 11/09/21 22:27 Urine Bacteria (Auto) Negative (Negative) 11/09/21 22:27 SARS-CoV-2 (PCR) NEGATIVE (Negative) 11/09/21 21:37 Influenza Type A (PCR) Negative (Neg) 11/09/21 21:37 Influenza Type B (PCR) Negative (Neg) 11/09/21 21:37 RSV (RT-PCR) Negative (Neg) 11/09/21 21:37 Impressions Chest X-Ray 11/09/21 19:41 XR chest 1V portable HISTORY: 86 years-old Female Dyspnea acute shortness of breath with hypoxia COMPARISON: Chest radiograph 06/18/2021 TECHNIQUE: Portable AP view of the chest FINDINGS: Cardiac silhouette is enlarged. Atherosclerosis of the aorta. Bilateral mixed interstitial and alveolar opacities are noted. No pneumothorax. Trace right and small left pleural effusions. Degenerative changes of the shoulders and spine. 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 IMPRESSION: 1. Cardiomegaly with mixed interstitial and alveolar opacities suggestive of pulmonary edema versus multifocal pneumonia. 2. Trace right and small left pleural effusions. ACT 112: Negative or not required by law. The above report was generated using voice recognition software. It may contain grammatical, syntax or spelling errors. Electronically signed by: Ayush Partida M.D. 11/09/2021 8:37 PM Code Status & VTE Plan VTE Prophylaxis Plan VTE Prophylaxis will be ordered: Yes PG Care Time/CCT Total # of Minutes Spent Total Time Spent with Patient: Total time spent is greater than 50% in coordination of care (as documented) at patient's floor/unit and/or counseling patient: Coding Level of Care Code 15724 Initial Inpt Care Lvl 3 Diagnoses Hypoxia R09.02 Atrial fibrillation I48.91 COPD (chronic obstructive pulmonary disease) J44.9 Hypertension I10 Hypothyroidism E03.9 Stage III chronic kidney disease N18.3 Hyperlipidemia E78.5
[2021-11-09] MEDS: MAGNESIUM SULFATE / D5W 1 GM/100 ML BAG IV SCH ×2 (22:17→23:15)
[2021-11-09 22:39] LABS: Influenza A virus by PCR Negative (Neg); Influenza B virus by PCR Negative (Neg); RSV by PCR Negative (Neg); SARS CoV2 RNA(COVID-19) InHosp NEGATIVE (Negative)
[2021-11-09 22:45] LABS: Appearance Urine Cloudy (Clear); Bacteria Urine Automated Negative (Negative); Bilirubin Urine Negative (Negative); Blood Urine Negative (Negative); Cast Urine Automated 0 /lpf (0-5); Color Urine Yellow; Glucose Urine UA Negative (Negative); Ketones Urine Negative (Negative); Leukocyte Esterase Urine Negative (Negative); Nitrite Urine Negative (Negative); Protein Urine Trace (Negative); RBC Urine Automated 0-4 /hpf (0-4); Specific Gravity Urine 1.011 (1.000-1.030); Urobilinogen Urine Negative (Negative)
[2021-11-10] MEDS ORDERED: METOPROLOL TARTRATE 1 MG/ML VIAL IV PRN (00:34)
[2021-11-10] MEDS ORDERED: ALBUTEROL HFA 8 GM INHALER INH PRN (00:34)
[2021-11-10] MEDS ORDERED: ACETAMINOPHEN 325 MG TAB PO PRN (00:34)
[2021-11-10] MEDS ORDERED: ONDANSETRON INJ 2 MG/ML 2 ML VIAL IV PRN (00:34)
[2021-11-10] MEDS ORDERED: METOPROLOL TARTRATE 1 MG/ML VIAL IV STA (00:38)
[2021-11-10] MEDS: LEVOTHYROXINE SODIUM 150 MCG TABLET PO SCH (05:28)
[2021-11-10 06:19] LABS: Hematocrit (blood only) 33.4 % (34.1-44.9); Hemoglobin 10.9 g/dl (12.0-16.0); Mean Corpuscular Hemoglobin 29.8 pg (25.0-34.0); Mean Corpuscular Hgb Conc 32.6 g/dL (32.0-36.0); Mean Corpuscular Volume 91.3 fL (80.0-100.0); Mean Platelet Volume 10.2 fL (9.4-12.3); Platelet Count 164 K/uL (130-400); RDW Coefficient of Variation 15.4 % (11.5-14.5); RDW Standard Deviation 51.1 fL (36.4-46.3); Red Blood Count 3.66 M/uL (3.93-5.22); White Blood Count 10.33 K/ul (4.8-10.8)
[2021-11-10 06:46] LABS: BUN Creatinine Ratio 22.5 (10-20); Calcium 8.6 mg/dl (8.5-10.1); Creatinine Clr Calc Pharmacy 32.4 ml/min; Est GFR (African American) 51.7 ml/min; Est GFR (Non-African American) 44.6 ml/min; Potassium 3.6 mmol/L (3.5-5.1); Troponin I High Sensitivity 164.3 pg/ml (0-14)
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
[2021-11-10] MEDS: METOPROLOL SUCC 50MG EXT REL TAB PO SCH (08:51)
[2021-11-10] MEDS: FLUTICASONE/VILANTEROL 100/25MCG 14 PUFFS/INHALER INH SCH (08:51)
[2021-11-10] MEDS: DOXAZosin MESYLATE 4 MG TAB PO SCH ×2 (08:51→21:22)
[2021-11-10] MEDS: predniSONE 2.5 MG TAB PO SCH (08:52)
[2021-11-10] MEDS: ASPIRIN 81 MG ECTAB PO SCH (08:52)
[2021-11-10] MEDS: TELMISARTAN 40 MG TAB PO SCH (08:52)
[2021-11-10] MEDS ORDERED: POTASSIUM CHLORIDE CRTAB 20 MEQ TABCR PO STA ×2 (08:52→17:08)
[2021-11-10] MEDS ORDERED: FLUTICASONE/SALMETEROL 100/50 (ADVAIR) 14 PUFF/1 INHALER INH SCH (09:00)
[2021-11-10] MEDS ORDERED: amLODIPine BESYLATE 5 MG TAB PO SCH (09:00)
[2021-11-10] MEDS ORDERED: HEPARIN SOD 5,000 UNIT/0.5 ML VIAL SQ SCH (09:00)
[2021-11-10] MEDS: FUROSEMIDE INJ 20 MG/2 ML VIAL IV SCH ×2 (10:22→21:22)
[2021-11-10 10:49] LABS: Ferritin 123.3 ng/ml (8-388)
[2021-11-10] MEDS ORDERED: IRON SUCROSE 200 MG in 0.9 % SODIUM CHLORIDE 100 ML IV ONE (12:00)
--- NOTE | 2021-11-10 13:03 | Cardiology Consultation ---
Date of Consultation November 10, 2021 Assessment & Plan (1) Hypoxia: (2) Atrial fibrillation: (3) Aortic stenosis: Plan 1. Hypoxia: Multifactorial. Likely an element of pulmonary vascular congestion. She is known to have preserved LV systolic function. Her degree of aortic stenosis is not been characterizes severe previously. There was some reported weight gain recently and use of diuretic at home. The patient could not confirm this today. It would seem reasonable to continue some diuresis monitoring her electrolytes and renal function closely. . This could be repeated tomorrow. She seems to be feeling quite well overall once lying flat at the time of my examination. At the time of discharge she can likely take her Lasix on a daily basis or continuing monitoring her weights. 2. Aortic stenosis: Moderate in March of this year. Scheduled for re-evaluation. I do not think re-evaluating valve which change or immediate management. 3. Atrial fibrillation: No overt symptoms although this could have contributed recently to some decompensation. Specially in the setting of her valvular heart disease and history of diastolic heart failure. She is currently taking a good dose of metoprolol succinate. We could switch her amlodipine to diltiazem for improved rate control. She has an element of mild bradycardia at baseline which would need to be monitored. I do not believe she is a good candidate for digoxin based on her renal dysfunction. Amiodarone would also be a good option for this elderly woman if she continued to have frequent episodes with high rates. With respect to anticoagulation, she did have a sustained episode. She is likely having additional episodes and will have more episodes. I did discuss anticoagulation with her and she will be started on Eliquis 5 mg twice daily History of Present Illness Reason for Consultation: Elevated troponin, dyspnea, hypoxia Requesting Physician: Pranay Attending Physician: Marta Kruse MD History of Present Illness The patient is an 86-year-old woman with a history of SVT, aortic stenosis, hypertension and diastolic heart failure who was brought to the hospital over concerns of confusion. The patient felt that she was brought here from a clinic visit. She did not report feeling poorly over the past several days and was apprised to be in the hospital. The medical record suggests that she was brought here due to some confusion. The initial evaluation in the emergency department revealed hypoxia. Patient also transition from sinus rhythm to atrial fibrillation and rapid ventricular rate. She was placed on additional oxygen, a small dose of diuretic was administered as well as a small dose of metoprolol. She was subsequent admitted to the hospital for observation. Her rhythm returned to normal early this morning. Currently the patient claims to be feeling well. She is anxious for discharge. She apparently lives independently and cooks for herself. She did not report any new symptoms recently. She uses oxygen at all times at home. She did not report dizziness or lightheadedness except that associated with standing up rapidly. She has not had symptoms of chest pain. She has not been aware of any rapid heartbeats or irregular heartbeats. She does have a pulse oximeter home in did report having high heart rate readings at times but could not elaborate further. Allergies Allergy/AdvReac Type Severity Reaction Status Date / Time bee venom protein (honey bee) Allergy Intermediate HIVES Verified 11/09/21 21:39 oxycodone Allergy Unknown Unknown Verified 11/09/21 21:39 Sulfa (Sulfonamide Allergy Unknown MOUTH Verified 11/09/21 21:39 Antibiotics) SWELLED/HIVES TO SULFA DRUGS, chemical hepatitis gabapentin Allergy Rash Verified 11/09/21 21:39 nitrofurantoin AdvReac Severe CAUSES Verified 11/09/21 21:39 HEPATITUS hydromorphone AdvReac Intermediate HALLUCINATI Verified 11/09/21 21:39 ONS Home Medications Medication Instructions Recorded Confirmed Type ascorbic acid (vitamin C) 500 mg 500 mg PO QAM 02/08/18 11/09/21 History capsule aspirin 81 mg tablet,delayed 81 mg PO QAM 02/08/18 11/09/21 History release cholecalciferol (vitamin D3) 25 1,000 unit PO QAM 02/08/18 11/09/21 History mcg (1,000 unit) tablet (Vitamin D3) omega 5-juc-hik-fish oil 1,000 mg 1 cap PO QAM 02/08/18 11/09/21 History (120 mg-180 mg) capsule (Fish Oil) Oxygen Home #1 ea 10/19/18 10/22/21 Rx atorvastatin 20 mg tablet 20 mg PO HS #90 tabs 11/03/20 11/09/21 Rx furosemide 20 mg tablet (Lasix) 20 mg PO QAM PRN weight gain #270 12/25/20 11/09/21 Rx tabs sertraline 100 mg tablet 100 mg PO PM #90 tabs 01/05/21 11/09/21 Rx Flutter Valve #1 ea 02/03/21 10/22/21 Rx Oxygen Home #4 L 05/18/21 10/22/21 Rx albuterol sulfate 90 mcg/actuation 2 inh inhalation Q4H PRN Wheezing 06/08/21 11/09/21 History aerosol inhaler (Ventolin HFA) vitamin A-vitamin C-vit E-min 1 tab PO BID 06/18/21 11/09/21 History tablet vitamin E (dl, acetate) 180 mg 360 mg PO DAILY 06/18/21 11/09/21 History (400 unit) capsule docusate sodium 100 mg capsule 300 mg PO QPM 06/22/21 11/09/21 History doxazosin 4 mg tablet (Cardura) 4 mg PO Q12 #180 tabs 06/22/21 11/09/21 Rx telmisartan 80 mg tablet 80 mg PO DAILY #90 tabs 06/22/21 11/09/21 Rx fluocinonide 0.05 % topical cream 1 applic topical BID #60 grams 08/05/21 11/09/21 Rx metoprolol succinate 100 mg 100 mg PO QAM #90 tabs 08/11/21 11/09/21 Rx tablet,extended release 24 hr amlodipine 5 mg tablet 5 mg PO QAM #90 tabs 08/17/21 11/09/21 Rx fluticasone 100 mcg-salmeterol 50 1 inh inhalation BID #60 ea 10/04/21 11/09/21 Rx mcg/dose blistr powdr for inhalation (Advair Diskus) levothyroxine 150 mcg tablet 150 mcg PO DAILYBB #90 tabs 10/07/21 11/09/21 Rx cranberry 400 mg capsule 400 mg PO DAILY 11/09/21 11/09/21 History prednisone 5 mg tablet 2.5 mg PO DAILY 11/09/21 11/09/21 History Patient History Medical History Anxiety Asthma Asymptomatic postmenopausal status Atrial fibrillation Breast lump Carpal tunnel syndrome of left wrist Chronic kidney disease Degenerative disc disease Depression Dermatitis Dyspnea Fatigue Hypercholesterolemia Hyperlipidemia Hypertension Hypothyroidism Hypoxia Hypoxia 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) Liver enzyme elevation Macular degeneration Mitral insufficiency Noncompliance Obesity Osteoarthritis Pulmonary edema Renal cell carcinoma Sinus bradycardia Vertigo Weakness Yeast dermatitis Surgical History Fusion of spine H/O left radical nephrectomy H/O partial nephrectomy History of anesthesia reaction History of bladder surgery History of cardiac cath History of carpal tunnel release History of cataract surgery History of colonoscopy History of esophagogastroduodenoscopy (EGD) History of hysterectomy History of thyroidectomy, subtotal History of tooth extraction History of total knee replacement Family History Brother History of colon resection Colorectal cancer Diabetes Prostate cancer Sister Breast cancer Mother Diabetes Coronary heart disease Father Myocardial infarction Denies family history of Ovarian cancer Social History Smoking Status: Never smoker Second Hand Exposure: No; Hx Alcohol Use: No Hx Substance Use: No Preferred Language: Mongolian Communication Ability: Effective Visual Impairment: No Limitations Hearing Ability: Normal Well Logging Mud Analysis Captain Required: No Beliefs That Will Affect Care: None Current Living Situation: Alone Current Living Situation Comment: spouse lives in a home current occupational status: retired 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 Confused at times. Repetitive thoughts. Mood affect appear normal. She answered all questions appropriately. Wearing supplemental oxygen HEENT: Sclerae are anicteric. Pupils are equal and reactive to light and accommodation. Extraocular movements were intact. Neuro: Cranial nerves intact Lungs: Occasional crackles at the bases bilaterally. No expiratory wheezing. She has normal respiratory effort without use of accessory muscles. There is normal pulmonary excursion. Cardiac: The rhythm was regular with occasional ectopy. S1 and S2 were normal. Crescendo systolic murmur that radiates throughout the precordium and axilla. The PMI was not markedly displaced on palpation. Abdomen: The abdomen was soft and nontender. Extremities: Patient has bilateral radial pulses that are equal in intensity. There is no evidence cyanosis or clubbing. There was no evidence of significant peripheral edema bilaterally. Skin: There are no rashes noted on examination today. Results & Data ([facility]) Vital Signs (Past 12 Hours) Vital Signs Temp Pulse Pulse Resp BP BP Pulse Ox 11/10/21 10:54 11/10/21 10:30 36.6 C 64 17 149/77 H 90 11/10/21 10:18 96 11/10/21 08:00 11/10/21 07:00 11/10/21 08:00 145 H 11/10/21 08:00 11/10/21 07:55 36.9 C 65 17 170/97 H 95 11/10/21 03:00 36.4 C L 109 H 18 133/89 96 11/10/21 01:29 145 H 11/10/21 01:19 11/10/21 01:05 123 H 159/107 H O2 Del Method O2 Flow Rate FiO2 11/10/21 10:54 Oxymask 7 91 11/10/21 10:30 Oxymask 7 11/10/21 10:18 Oxymask 9 11/10/21 08:00 Oxymask 12 94 11/10/21 07:00 Oxymask 15 99 11/10/21 08:00 11/10/21 08:00 Oxymask 12 11/10/21 07:55 Oxymask 13 11/10/21 03:00 Oxymask 15 11/10/21 01:29 11/10/21 01:19 Oxymask 15 11/10/21 01:05 Laboratory Results Abnormal Lab Results 11/09/21 11/09/21 11/09/21 19:30 19:30 19:30 WBC 9.83 RBC 3.99 Hgb 11.6 L Hct 35.9 MCV 90.0 MCH 29.1 MCHC 32.3 RDW Std Deviation 50.6 H RDW Coeff of Yanelis 15.4 H Plt Count 173 MPV 10.2 Immature Gran % (Auto) 0.6 Neut % (Auto) 82.4 Lymph % (Auto) 6.7 Gila % (Auto) 9.3 Eos % (Auto) 0.5 Baso % (Auto) 0.5 Neut # (Auto) 8.10 H Lymph # (Auto) 0.66 L Gila # (Auto) 0.91 H Eos # (Auto) 0.05 Baso # (Auto) 0.05 Immature Gran # (Auto) 0.06 H PT 13.5 H INR 1.3 H APTT 33.0 H PTT Ratio 1.2 VBG pH VBG pCO2 VBG pO2 VBG HCO3 VBG O2 Saturation VBG Base Excess Sodium 140 Potassium 3.7 Chloride 104 Carbon Dioxide 30 Anion Gap 6 BUN 23 Creatinine 1.12 Est Cr Clr Drug Dosing Not Reportable Est GFR ( Amer) 51.2 Est GFR (Non-Af Amer) 44.1 BUN/Creatinine Ratio 20.5 H Glucose 107 H Calcium 9.2 Phosphorus Magnesium Iron TIBC Unsaturated IBC Transferrin % Sat Ferritin Total Bilirubin 1.3 H AST 26 ALT 27 Alkaline Phosphatase 58 Troponin I High Sens 89.0 H* B-Natriuretic Peptide Total Protein 6.4 Albumin 4.1 Globulin 2.3 L Albumin/Globulin Ratio 1.8 Vitamin B12 TSH Urine Color Urine Appearance Urine pH Ur Specific [place] Urine Protein Urine Glucose (UA) Urine Ketones Urine Blood Urine Nitrite Urine Bilirubin Urine Urobilinogen Ur Leukocyte Esterase Urine WBC (Auto) Urine RBC (Auto) U Hyaline Cast (Auto) U Epithel Cells (Auto) Urine Bacteria (Auto) SARS-CoV-2 (PCR) Influenza Type A (PCR) Influenza Type B (PCR) RSV (RT-PCR) 11/09/21 11/09/21 11/09/21 19:30 20:07 21:37 WBC RBC Hgb Hct MCV MCH MCHC RDW Std Deviation RDW Coeff of Yanelis Plt Count MPV Immature Gran % (Auto) Neut % (Auto) Lymph % (Auto) Gila % (Auto) Eos % (Auto) Baso % (Auto) Neut # (Auto) Lymph # (Auto) Gila # (Auto) Eos # (Auto) Baso # (Auto) Immature Gran # (Auto) PT INR APTT PTT Ratio VBG pH 7.47 H VBG pCO2 43 VBG pO2 43 VBG HCO3 31 VBG O2 Saturation 69.4 VBG Base Excess 6.8 Sodium Potassium Chloride Carbon Dioxide Anion Gap BUN Creatinine Est Cr Clr Drug Dosing Est GFR ( Amer) Est GFR (Non-Af Amer) BUN/Creatinine Ratio Glucose Calcium Phosphorus Magnesium 1.6 L Iron TIBC Unsaturated IBC Transferrin % Sat Ferritin Total Bilirubin AST ALT Alkaline Phosphatase Troponin I High Sens B-Natriuretic Peptide Total Protein Albumin Globulin Albumin/Globulin Ratio Vitamin B12 TSH Urine Color Urine Appearance Urine pH Ur Specific [place] Urine Protein Urine Glucose (UA) Urine Ketones Urine Blood Urine Nitrite Urine Bilirubin Urine Urobilinogen Ur Leukocyte Esterase Urine WBC (Auto) Urine RBC (Auto) U Hyaline Cast (Auto) U Epithel Cells (Auto) Urine Bacteria (Auto) SARS-CoV-2 (PCR) NEGATIVE Influenza Type A (PCR) Negative Influenza Type B (PCR) Negative RSV (RT-PCR) Negative 11/09/21 11/10/21 11/10/21 22:27 01:30 01:30 WBC RBC Hgb Hct MCV MCH MCHC RDW Std Deviation RDW Coeff of Yanelis Plt Count MPV Immature Gran % (Auto) Neut % (Auto) Lymph % (Auto) Gila % (Auto) Eos % (Auto) Baso % (Auto) Neut # (Auto) Lymph # (Auto) Gila # (Auto) Eos # (Auto) Baso # (Auto) Immature Gran # (Auto) PT INR APTT PTT Ratio VBG pH VBG pCO2 VBG pO2 VBG HCO3 VBG O2 Saturation VBG Base Excess Sodium Potassium Chloride Carbon Dioxide Anion Gap BUN Creatinine Est Cr Clr Drug Dosing Est GFR ( Amer) Est GFR (Non-Af Amer) BUN/Creatinine Ratio Glucose Calcium Phosphorus 3.1 Magnesium Iron TIBC Unsaturated IBC Transferrin % Sat Ferritin Total Bilirubin AST ALT Alkaline Phosphatase Troponin I High Sens B-Natriuretic Peptide 2433 H Total Protein Albumin Globulin Albumin/Globulin Ratio Vitamin B12 TSH Urine Color Yellow Urine Appearance Cloudy A Urine pH 7.0 Ur Specific [place] 1.011 Urine Protein Trace H Urine Glucose (UA) Negative Urine Ketones Negative Urine Blood Negative Urine Nitrite Negative Urine Bilirubin Negative Urine Urobilinogen Negative Ur Leukocyte Esterase Negative Urine WBC (Auto) 1-5 Urine RBC (Auto) 0-4 U Hyaline Cast (Auto) 0 U Epithel Cells (Auto) 5-10 H Urine Bacteria (Auto) Negative SARS-CoV-2 (PCR) Influenza Type A (PCR) Influenza Type B (PCR) RSV (RT-PCR) 11/10/21 11/10/21 11/10/21 05:48 05:48 05:48 WBC 10.33 RBC 3.66 L Hgb 10.9 L Hct 33.4 L MCV 91.3 MCH 29.8 MCHC 32.6 RDW Std Deviation 51.1 H RDW Coeff of Yanelis 15.4 H Plt Count 164 MPV 10.2 Immature Gran % (Auto) Neut % (Auto) Lymph % (Auto) Gila % (Auto) Eos % (Auto) Baso % (Auto) Neut # (Auto) Lymph # (Auto) Gila # (Auto) Eos # (Auto) Baso # (Auto) Immature Gran # (Auto) PT INR APTT PTT Ratio VBG pH VBG pCO2 VBG pO2 VBG HCO3 VBG O2 Saturation VBG Base Excess Sodium 138 Potassium 3.6 Chloride 103 Carbon Dioxide 28 Anion Gap 7 BUN 25 H Creatinine 1.11 Est Cr Clr Drug Dosing 32.4 Est GFR ( Amer) 51.7 Est GFR (Non-Af Amer) 44.6 BUN/Creatinine Ratio 22.5 H Glucose 118 H Calcium 8.6 Phosphorus Magnesium Iron TIBC Unsaturated IBC Transferrin % Sat Ferritin Total Bilirubin AST ALT Alkaline Phosphatase Troponin I High Sens 164.3 H* D B-Natriuretic Peptide Total Protein Albumin Globulin Albumin/Globulin Ratio Vitamin B12 TSH 7.412 H Urine Color Urine Appearance Urine pH Ur Specific [place] Urine Protein Urine Glucose (UA) Urine Ketones Urine Blood Urine Nitrite Urine Bilirubin Urine Urobilinogen Ur Leukocyte Esterase Urine WBC (Auto) Urine RBC (Auto) U Hyaline Cast (Auto) U Epithel Cells (Auto) Urine Bacteria (Auto) SARS-CoV-2 (PCR) Influenza Type A (PCR) Influenza Type B (PCR) RSV (RT-PCR) 11/10/21 11/10/21 11/10/21 09:33 09:33 10:45 WBC RBC Hgb Hct MCV MCH MCHC RDW Std Deviation RDW Coeff of Yanelis Plt Count MPV Immature Gran % (Auto) Neut % (Auto) Lymph % (Auto) Gila % (Auto) Eos % (Auto) Baso % (Auto) Neut # (Auto) Lymph # (Auto) Gila # (Auto) Eos # (Auto) Baso # (Auto) Immature Gran # (Auto) PT INR APTT PTT Ratio VBG pH VBG pCO2 VBG pO2 VBG HCO3 VBG O2 Saturation VBG Base Excess Sodium Potassium Chloride Carbon Dioxide Anion Gap BUN Creatinine Est Cr Clr Drug Dosing Est GFR ( Amer) Est GFR (Non-Af Amer) BUN/Creatinine Ratio Glucose Calcium Phosphorus Magnesium Iron 20 L TIBC 226 L Unsaturated IBC 206 Transferrin % Sat 9 L Ferritin 123.3 Total Bilirubin AST ALT Alkaline Phosphatase Troponin I High Sens 226.7 H* D B-Natriuretic Peptide Total Protein Albumin Globulin Albumin/Globulin Ratio Vitamin B12 > 1500 H TSH Urine Color Urine Appearance Urine pH Ur Specific [place] Urine Protein Urine Glucose (UA) Urine Ketones Urine Blood Urine Nitrite Urine Bilirubin Urine Urobilinogen Ur Leukocyte Esterase Urine WBC (Auto) Urine RBC (Auto) U Hyaline Cast (Auto) U Epithel Cells (Auto) Urine Bacteria (Auto) SARS-CoV-2 (PCR) Influenza Type A (PCR) Influenza Type B (PCR) RSV (RT-PCR) Diagnostic Findings Initial EKG demonstrated atrial fibrillation with rapid ventricular response. Poor R-wave progression in the precordial leads with left axis deviation. EKG obtained at 1252 demonstrated normal sinus rhythm. Left axis deviation. Otherwise unremarkable. Echocardiogram obtained 04/02/2021: Normal LV systolic function with ejection fraction of 65-70%. Moderate valvular aortic stenosis. Moderate LVH. PG Care Time/CCT Total # of Minutes Spent Total Time Spent with Patient: Total time spent is greater than 50% in coordination of care (as documented) at patient's floor/unit and/or counseling patient: Coding Level of Care Code 19688 Initial Inpt Care Lvl 3 Diagnoses Hypoxia R09.02 Atrial fibrillation I48.91 Aortic stenosis I35.0
--- NOTE | 2021-11-10 17:45 | Electrocardiogram Report ---
Test Reason : Blood Pressure : / mmHG Vent. Rate : 064 BPM Atrial Rate : 064 BPM P-R Int : 150 ms QRS Dur : 090 ms QT Int : 446 ms P-R-T Axes : 095 -35 102 degrees QTc Int : 460 ms Sinus rhythm with Premature supraventricular complexes and with frequent Premature ventricular comple xes Left axis deviation Nonspecific ST and T wave abnormality Abnormal ECG When compared with ECG of 18-JUN-2021 00:59, Premature ventricular complexes are now Present Premature supraventricular complexes are now Present Confirmed by Amador Prabhakar ([id number]) on 11/10/2021 5:45:12 PM Referred By: REFERRED SELF Confirmed By:Narciso Prabhakar
--- NOTE | 2021-11-10 17:47 | Electrocardiogram Report ---
Test Reason : Blood Pressure : / mmHG Vent. Rate : 140 BPM Atrial Rate : 144 BPM P-R Int : 000 ms QRS Dur : 098 ms QT Int : 346 ms P-R-T Axes : 000 -50 125 degrees QTc Int : 528 ms Atrial fibrillation with rapid ventricular response Left axis deviation Poor R wave progression, consider anterior KS vs. lead placement vs. LVH Marked ST abnormality, possible lateral subendocardial injury Abnormal ECG When compared with ECG of 09-NOV-2021 20:43, (unconfirmed) Atrial fibrillation has replaced Sinus rhythm Vent. rate has increased BY 73 BPM Confirmed by Amador Prabhakar ([id number]) on 11/10/2021 5:47:16 PM Referred By: REFERRED SELF Confirmed By:Narciso Prabhakar
--- NOTE | 2021-11-10 17:49 | Electrocardiogram Report ---
Test Reason : Blood Pressure : / mmHG Vent. Rate : 067 BPM Atrial Rate : 067 BPM P-R Int : 156 ms QRS Dur : 086 ms QT Int : 452 ms P-R-T Axes : 066 -34 100 degrees QTc Int : 477 ms Sinus rhythm with sinus arrhythmia with occasional Premature ventricular complexes Possible Left atrial enlargement Left axis deviation Poor R wave progression, consider anterior [place] vs. lead placement vs. LVH Abnormal ECG When compared with ECG of 09-NOV-2021 19:19, (unconfirmed) Premature supraventricular complexes are no longer Present Confirmed by Amador Prabhakar ([id number]) on 11/10/2021 5:49:21 PM Referred By: REFERRED SELF Confirmed By:Narciso Prabhakar
[2021-11-10] MEDS: APIXABAN 5 MG TABLET PO SCH (20:44)
[2021-11-10] MEDS: DOCUSATE SODIUM 100 MG CAP PO SCH (21:21)
[2021-11-10] MEDS: ATORVASTATIN 20 MG TAB PO SCH (21:22)
[2021-11-10] MEDS: SERTRALINE HCL 100 MG TABLET PO SCH (21:22)
[2021-11-11] MEDS: LEVOTHYROXINE SODIUM 150 MCG TABLET PO SCH (06:11)
[2021-11-11 06:43] LABS: Hematocrit (blood only) 35.6 % (34.1-44.9); Hemoglobin 11.5 g/dl (12.0-16.0); Mean Corpuscular Hemoglobin 29.2 pg (25.0-34.0); Mean Corpuscular Hgb Conc 32.3 g/dL (32.0-36.0); Mean Corpuscular Volume 90.4 fL (80.0-100.0); Platelet Count 180 K/uL (130-400); RDW Coefficient of Variation 15.3 % (11.5-14.5); RDW Standard Deviation 51.1 fL (36.4-46.3); Red Blood Count 3.94 M/uL (3.93-5.22); White Blood Count 8.38 K/ul (4.8-10.8)
[2021-11-11 07:06] LABS: BUN Creatinine Ratio 26.4 (10-20); Calcium 8.8 mg/dl (8.5-10.1); Creatinine Clr Calc Pharmacy 34.1 ml/min; Est GFR (African American) 54.7 ml/min; Est GFR (Non-African American) 47.2 ml/min; Magnesium 1.8 mg/dl (1.7-2.4); Potassium 3.6 mmol/L (3.5-5.1)
[2021-11-11] MEDS ORDERED: POTASSIUM CHLORIDE CRTAB 20 MEQ TABCR PO STA ×2 (07:40→12:40)
--- NOTE | 2021-11-11 07:43 | Hospitalist Progress Note ---
Date of Service November 11, 2021 Assessment & Plan (1) Hypoxia: Plan: IMPROVING Hypoxic in the ER at 85% on her normal 4 L of oxygen, with improvement to 94% on 15L Oxymask and given lasix 20mg IV x 1 (reports on 4L since prior +COVID last year) 86-year-old female with history of asthma/COPD on home oxygen of 4 L by nasal cannula, heart failure with preserved EF, moderate aortic stenosis (occ w/ sx dizziness/pre-syncope), persistent dyspnea presenting with progressive shortness of breath and confusion at home. Acute on chronic hypoxemic respiratory failure due to acute on chronic diastolic CHF Suspect has been in some degree of CHF for quite some time, exacerbated likely by worsening aortic stenosis and afib with elevated HRs at home given longstanding hypothyroidism with recent adjustment in Synthroid as outpatient as well as LONG STEROID TAPER over the past 2-3 months. Also had prior issues with med noncompliance until daughter doing pills over past couple months, and even then some issues w/ compliance BNP 2433 (BNP was 1251 in June 2021 when admitted for a fall at [facility], was on prednisone 5mg BID at that time, no mention BNP elevation) Cards on consult (afib RVR on admit) * agreed to continue 20mg IV BID (?change to PO BID later today) * Monitor I&O (net negative 1.1L this morning) although unmeasured voids, wt appears about the same * Changed amlodipine to diltiazem 120mg daily for better rate control. * Placed on eliquis 5mg BID 11/10 -- continue at discharge * Flipped back into NSR afternoon 11/10 however this morning 11/11 around 10:30- 10:45 flipped back into afib with rates ranging from 130-170 (asymptomatic), and was given 30mg additional diltiazem, possibly need to increase AM dose Also giving 2gm IV magnesium to keep closer to 2, K 3.6 and additional 40meq PO provided Iron studies obtained to r/o anemia causing hypoxia -iron 20, trans %sat 9. -Venofer 200mg IV 11/10, repeat 11/11 and will order additional dose for AM 11/12 Supplemental O2 as needed to maintain sats (4L baseline) --> Titrated to 3L this morning with SpO2 93% TSH elevated 7.4 but with recent adjustment in Synthroid maintaining current dose 150 mcg, especially given afib with elevated HRs during admission ?if happening at home causing worsening confusion at home. CT head negative PT/OT consulted Daughters concerns about safety at home. 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 (2) CHF (congestive heart failure): Plan: Acute on chronic hypoxemic respiratory failure due to acute on chronic diastolic CHF combination HFpEF, in setting of moderate aortic stenosis (likely worsened), afib with elevated HRs Diuretics as outlined, monitor response ?benefit from f/u CHF clinic to check in on daily weights if home option at all at any point vs checking in at rehab to prevent readmissions/ensure weights stable Management as outlined under hypoxia, O2 requirements actually improved compared to baseline with HR control, Venofer, and diuretics (3) Atrial fibrillation: Plan: Patient with remote history of atrial fibrillation. TSH elevated as above, recent increase in outpatient Synthroid and will maintain current dose Continue metoprolol 100 mg p.o. daily Metoprolol 5 mg IV every 4 hours as needed for heart rate greater than 120 On admit, went into Afib RVR with rates to 140s in ER, given cardizem and converted am11/10 around 330am, however did have additional burst afternoon 11/10 for 7-[address] Prabhakar on consult -->agreed with AC, started eliquis 5mg BID started 11/10 -- continue --> switched amlodipine to diltiazem for improved rate control. already on decent dose of metoprolol. not good candidate for digoxin based on renal dysfunc tion. Amio to be considered if she continued to have frequent episodes with high rates 11/11 -Given 1x dose IV metoprolol this morning when flipped back into afib - Mag 2gm IV ordered for mag 1.8 to keep closer to 2 -K 3.6 on am labs, 40meq po provided, will give additional dose now and additional with lasix tonight given K 3.6 and repeat same with 40meq xx 2 the day before -?if component tachy/jemima given HR was in the 50s this morning. Messaged Dr Prabhakar regarding concerns --> 30mg diltiazem PO x 1 for HR 140-150s, continued to monitor on telemetry --> Consider additional dose diltiazem pending card eval, put likely will need to increase dose for AM already on 100mg metoprolol, consider amio if continued to have frequent episodes with high rates (4) Anemia: Plan: Globin in the 10-11 range, normocytic With significant iron deficiency here with transferrin saturation of 9% -- unclear cause Giving IV Venofer as above, 200mg +200mg for today, repeat in AM at lower dose given borderline hypotension B12 is normal, folate wnl Could also be related to hypothyroidism -on levothyroxine as above, recent adjustments We will need to carefully watch hemoglobin as starting on anticoagulation --Hgb 10.9--> 11.5 with diuresis, no bleeding reported. Monitor for GI bleeding occult or gross Of note, chronic prednisone use, and ASA, not on PPI. No reflux or upper abdominal discomfort reported Consider adding PPI for prophylaxis, will add H2 christoph w/ pepcid for now to prevent any MARY JANE CBC in AM (5) COPD (chronic obstructive pulmonary disease): Plan: Patient with COPD/asthma. She follows with pulmonary and recently started on advair Had been on higher doses of steroids, up to 5mg BID, then decreased to 7.5mg daily and had been on that for about a month Patient on sliding scale diuretics at home per daughter and to take for >3lb/day or 5lb in a week but unsure if she is actually weighing herself * Patient DENIED having to take her lasix more frequently, per daughter she reported she took it TWICE last week Continue prednisone 2.5mg x 3 more days (also unclear if she was taking this correctly) -- 1 day left Albuterol prn No wheezing on exam, no increased SOB reported on 3L NC currently with SpO2 94% (6) Hypertension: Plan: Chronic. Continued on metoprolol 100mg, telmisartan 80mg daily Amlodpine 5mg switched to diltiazem 120mg for rate control for afib, additional dose 30mg this afternoon considering increased diltiazem for AM for rate control BP lower normal, ?related to rate vs venofer this morning BP 110/58, denied lightheaded/dizziness (7) Hypothyroidism: Plan: Chronic. Patient recently had her Synthroid dose increased to 150 mcg daily by PCP during October appointment from 137mcg for prior elevation to 14 TSH decreased from prior but only about 4 weeks out given afib with elevated rates as above recommend continuing the 150mcg dose, ensuring taking appropriately and repeating labs in 4 weeks outpatient (8) Stage III chronic kidney disease: Plan: BUN and creatinine near baseline, actually better than prior values earlier this year Of note, hx L radical and right partial nephrectomy for renal cell carcinoma Baseline Cr 1.5 per last note from Dr Johnson Cr 1.12--> 1.11 --> 1.06 after continued 20mg IV lasix BID and venofer replacement as above Additional Kcl supplementation with lasix this afternoon Avoid other nephrotoxic agents, renally dose meds when able Monitor BMP (9) Hyperlipidemia: Plan: Chronic. Stable. Continue atorvastatin 20 mg p.o. nightly DVT Prophylaxis -- initially ordered Heparin SQ--> placed on eliquis 5mg BID as above Social issues Updated daughter Moon 11/10; will call her or other daughter later today/tomorro w. Notified CM CM consulted as well given daughters concern, patient living alone and while they were trying to maintain her independence it is becoming too much of an issue to care for Ms Vaughn at home. They would like to see about PT/OT initially as discussed but they are wanting to look into [facility]. Patient alert and oriented but failed MMS at most recent PCP visit per nadine. Does have intermittent confusion. If unable to safely ensure taking medications at home, [facility] may be best, but also discussed maybe with rehab/SNF and feeling better/CHF treated she may have less confusion and can consider home after rehab/SNF vs continued look for [facility]. Appears several of prior admissions were also related to medication compliance/taking incorrect medications. PT/OT consulted -- not yet seen Plan continued inpatient stay continue diuresis, venofer replacement, rate/rhythm control keep Mag ~2, K~4, additional KCL replacement ordered for this afternoon PT/OT consulted Admission and Anticipated Discharge Date Admission Date: November 09, 2021 Supervising Physician Co-Signing Physician Notes PA Supervision Note: I did not personally see or examine the patient today, but I verified all deleon points of GAB Pires's assessment and plan with the following exceptions/additions: None Subjective Evaluated at lunch, patient sitting up eating . No acute distress HR to 170s earlier this morning, currently 130-140s, asymptomatic. Denies feeling any palpitations. Given 30mg diltiazem this morning, considering increased AM dose for tomorrow vs additional dose this evening. Currently getting IV magnesium infusion. Discussed needing PT/OT eval and possible rehab/SNF at discharge pending evaluation. Patient down to her usual oxygen, slightly improved on 3L. Patient amazed at purewick catheter, draining yellow urine. No chest pain, shortness of breath, abdominal pain, nausea or vomiting. Questions/concerns addressed. She is ok to update daughters, believes one will be traveling to the area from [facility]. Updated daughter Moon yesterday. Review of Systems Review of Systems: All systems reviewed & are unremarkable except as noted in HPI & below Physical Exam Physical Exam: She is alert and oriented x3. Confused at times. Repetitive thoughts. Mood affect appear normal. She answered all questions appropriately however, occasionally with poor insight. Wearing supplemental oxygen sitting upright in bed eating lunch, on 3L NC HEENT: head normocephalic, atraumatic, pupils equal in size, trachea midline without deviation, +JVD Resp: CTAB, diminished in the bases with associated crackles, 94% on 3L CV: irregularly irregular, rate 134bpm, +systolic murmur with radiation across precordium, no calf tenderness, trace pitting edema b/l LE GI: +BS, soft, nontender : purewick in place MSK/Neuro: no focal deficit, no slurred speech or facial droop Psych: alert, oriented to person/place, occasional confusion to time, pleasant and cooperative Results & Data Results & Data ([facility]) Vital Signs (Past 12 Hours) Vital Signs Temp Pulse Pulse Resp BP Pulse Ox O2 Del Method 11/11/21 06:46 37.1 C 56 L 18 184/79 H 97 11/11/21 00:00 62 11/11/21 03:10 36.6 C 70 20 188/81 H 93 11/10/21 23:23 36.5 C 64 18 168/78 H 92 11/10/21 22:42 Nasal Cannula 11/10/21 21:20 65 170/95 H O2 Flow Rate 11/11/21 06:46 2 11/11/21 00:00 11/11/21 03:10 2 11/10/21 23:23 2 11/10/21 22:42 4 11/10/21 21:20 Laboratory Results 11/11/21 11/11/21 11/11/21 Range/Units 05:58 05:58 05:58 WBC 8.38 (4.8-10.8) K/ul RBC 3.94 (3.93-5.22) M/uL Hgb 11.5 L (12.0-16.0) g/dl Hct 35.6 (34.1-44.9) % MCV 90.4 (80.0-100.0) fL MCH 29.2 (25.0-34.0) pg MCHC 32.3 (32.0-36.0) g/dL RDW Std Deviation 51.1 H (36.4-46.3) fL RDW Coeff of Yanelis 15.3 H (11.5-14.5) % Plt Count 180 (130-400) K/uL MPV 10.0 (9.4-12.3) fL Sodium 142 (136-145) mmol/L Potassium 3.6 (3.5-5.1) mmol/L Chloride 102 (98-107) mmol/L Carbon Dioxide 33 H (21-32) mmol/L Anion Gap 7 (3-11) BUN 28 H (6-23) mg/dl Creatinine 1.06 (0.6-1.2) mg/dl Est Cr Clr Drug Dosing 34.1 ml/min Est GFR ( Amer) 54.7 ml/min Est GFR (Non-Af Amer) 47.2 ml/min BUN/Creatinine Ratio 26.4 H (10-20) Glucose 90 (70-99(Fasting)) mg/dl Calcium 8.8 (8.5-10.1) mg/dl Magnesium 1.8 (1.7-2.4) mg/dl Iron (35-150) mcg/dl TIBC (250-450) mcg/dl Unsaturated IBC (155-355) mcg/dl Transferrin % Sat (15-50) % Ferritin (8-388) ng/ml Troponin I High Sens (0-14) pg/ml Vitamin B12 (180-914) pg/ml Folate > 22.30 (>5.38) ng/ml 11/10/21 11/10/21 11/10/21 Range/Units 17:03 10:45 09:33 WBC (4.8-10.8) K/ul RBC (3.93-5.22) M/uL Hgb (12.0-16.0) g/dl Hct (34.1-44.9) % MCV (80.0-100.0) fL MCH (25.0-34.0) pg MCHC (32.0-36.0) g/dL RDW Std Deviation (36.4-46.3) fL RDW Coeff of Yanelis (11.5-14.5) % Plt Count (130-400) K/uL MPV (9.4-12.3) fL Sodium (136-145) mmol/L Potassium (3.5-5.1) mmol/L Chloride (98-107) mmol/L Carbon Dioxide (21-32) mmol/L Anion Gap (3-11) BUN (6-23) mg/dl Creatinine (0.6-1.2) mg/dl Est Cr Clr Drug Dosing ml/min Est GFR ( Amer) ml/min Est GFR (Non-Af Amer) ml/min BUN/Creatinine Ratio (10-20) Glucose (70-99(Fasting)) mg/dl Calcium (8.5-10.1) mg/dl Magnesium (1.7-2.4) mg/dl Iron (35-150) mcg/dl TIBC (250-450) mcg/dl Unsaturated IBC (155-355) mcg/dl Transferrin % Sat (15-50) % Ferritin (8-388) ng/ml Troponin I High Sens 214.0 H* 226.7 H* D (0-14) pg/ml Vitamin B12 > 1500 H (180-914) pg/ml Folate (>5.38) ng/ml 11/10/21 11/10/21 Range/Units 09:33 05:48 WBC (4.8-10.8) K/ul RBC (3.93-5.22) M/uL Hgb (12.0-16.0) g/dl Hct (34.1-44.9) % MCV (80.0-100.0) fL MCH (25.0-34.0) pg MCHC (32.0-36.0) g/dL RDW Std Deviation (36.4-46.3) fL RDW Coeff of Yanelis (11.5-14.5) % Plt Count (130-400) K/uL MPV (9.4-12.3) fL Sodium (136-145) mmol/L Potassium (3.5-5.1) mmol/L Chloride (98-107) mmol/L Carbon Dioxide (21-32) mmol/L Anion Gap (3-11) BUN (6-23) mg/dl Creatinine (0.6-1.2) mg/dl Est Cr Clr Drug Dosing ml/min Est GFR ( Amer) ml/min Est GFR (Non-Af Amer) ml/min BUN/Creatinine Ratio (10-20) Glucose (70-99(Fasting)) mg/dl Calcium (8.5-10.1) mg/dl Magnesium 2.0 (1.7-2.4) mg/dl Iron 20 L (35-150) mcg/dl TIBC 226 L (250-450) mcg/dl Unsaturated IBC 206 (155-355) mcg/dl Transferrin % Sat 9 L (15-50) % Ferritin 123.3 (8-388) ng/ml Troponin I High Sens (0-14) pg/ml Vitamin B12 (180-914) pg/ml Folate (>5.38) ng/ml PG Care Time/CCT Total # of Minutes Spent Total Time Spent with Patient: Total time spent is greater than 50% in coordination of care (as documented) at patient's floor/unit and/or counseling patient: Coding Level of Care Code 46547 Subseq Hosp Care Lvl 3 Diagnoses Hypoxia R09.02 CHF (congestive heart failure) I50.9 Atrial fibrillation I48.91 Anemia D64.9 COPD (chronic obstructive pulmonary disease) J44.9 Hypertension I10 Hypothyroidism E03.9 Stage III chronic kidney disease N18.3 Hyperlipidemia E78.5
[2021-11-11] MEDS ORDERED: IRON SUCROSE 200 MG in 0.9 % SODIUM CHLORIDE 100 ML IV ONE (08:00)
[2021-11-11] MEDS: dilTIAZem ER 120 MG CAPCR PO SCH (08:14)
[2021-11-11] MEDS: FUROSEMIDE INJ 20 MG/2 ML VIAL IV SCH ×2 (08:14→20:05)
[2021-11-11] MEDS: FLUTICASONE/VILANTEROL 100/25MCG 14 PUFFS/INHALER INH SCH (08:14)
[2021-11-11] MEDS: APIXABAN 5 MG TABLET PO SCH ×2 (08:14→20:01)
[2021-11-11] MEDS: TELMISARTAN 40 MG TAB PO SCH (09:04)
[2021-11-11] MEDS: predniSONE 2.5 MG TAB PO SCH (09:05)
[2021-11-11] MEDS: ASPIRIN 81 MG ECTAB PO SCH (09:05)
[2021-11-11] MEDS: DOXAZosin MESYLATE 4 MG TAB PO SCH ×2 (09:05→20:03)
[2021-11-11] MEDS: METOPROLOL SUCC 50MG EXT REL TAB PO SCH (09:05)
--- NOTE | 2021-11-11 10:06 | Electrocardiogram Report ---
Test Reason : Blood Pressure : / mmHG Vent. Rate : 066 BPM Atrial Rate : 066 BPM P-R Int : 160 ms QRS Dur : 088 ms QT Int : 452 ms P-R-T Axes : 075 -14 129 degrees QTc Int : 473 ms Sinus rhythm with Premature atrial complexes Possible Left atrial enlargement Left ventricular hypertrophy with repolarization abnormality Abnormal ECG When compared with ECG of 09-NOV-2021 21:17, Sinus rhythm has replaced Atrial fibrillation Vent. rate has decreased BY 74 BPM QRS axis Shifted right Criteria for Septal infarct are no longer Present Confirmed by Ventura Monroe ([id number]) on 11/11/2021 10:06:07 AM Referred By: REFERRED SELF Confirmed By:Ventura Monroe
--- NOTE | 2021-11-11 10:07 | Electrocardiogram Report ---
Test Reason : Blood Pressure : / mmHG Vent. Rate : 065 BPM Atrial Rate : 065 BPM P-R Int : 166 ms QRS Dur : 088 ms QT Int : 448 ms P-R-T Axes : 082 -17 122 degrees QTc Int : 465 ms Sinus rhythm with occasional Premature ventricular complexes Left ventricular hypertrophy with repolarization abnormality Abnormal ECG When compared with ECG of 10-NOV-2021 10:06, Premature ventricular complexes are now Present Premature atrial complexes are no longer Present Confirmed by Ventura Monroe ([id number]) on 11/11/2021 10:06:56 AM Referred By: REFERRED SELF Confirmed By:Ventura Monroe
[2021-11-11] MEDS ORDERED: dilTIAZem HCL 30 MG TAB PO ONE ×2 (11:15)
[2021-11-11] MEDS: MAGNESIUM SULFATE / D5W 1 GM/100 ML BAG IV SCH ×2 (11:28→13:14)
--- NOTE | 2021-11-11 12:51 | Electrocardiogram Report ---
Test Reason : Blood Pressure : / mmHG Vent. Rate : 063 BPM Atrial Rate : 063 BPM P-R Int : 162 ms QRS Dur : 088 ms QT Int : 454 ms P-R-T Axes : 071 -30 100 degrees QTc Int : 464 ms Normal sinus rhythm Left axis deviation Nonspecific ST and T wave abnormality Abnormal ECG When compared with ECG of 10-Nov-2021 10:06, Premature ventricular complexes are no longer Present Confirmed by Ventura Monroe ([id number] on 11/11/2021 12:51:19 PM Referred By: REFERRED SELF Confirmed By:Ventura Monroe
[2021-11-11] MEDS: FAMOTIDINE 20 MG TAB PO SCH (13:37)
[2021-11-11] MEDS ORDERED: POTASSIUM CHLORIDE CRTAB 20 MEQ TABCR PO SCH (18:00)
[2021-11-11] MEDS ORDERED: POTASSIUM CHLORIDE CRTAB 20 MEQ TABCR PO ONE (18:00)
[2021-11-11] MEDS: ATORVASTATIN 20 MG TAB PO SCH (20:02)
[2021-11-11] MEDS: DOCUSATE SODIUM 100 MG CAP PO SCH (20:03)
[2021-11-11] MEDS: SERTRALINE HCL 100 MG TABLET PO SCH (20:03)
[2021-11-11] MEDS ORDERED: OLANZapine 10 MG/2.1 ML SDV IM STA (23:02)
[2021-11-11] MEDS ORDERED: OLANZapine 10 MG/2.1 ML SDV IM ONE (23:07)
[2021-11-12] MEDS ORDERED: OLANZapine 10 MG/2.1 ML SDV IM STA (02:25)
[2021-11-12] MEDS: LEVOTHYROXINE SODIUM 150 MCG TABLET PO SCH (05:31)
[2021-11-12 07:02] LABS: Hematocrit (blood only) 37.4 % (34.1-44.9); Hemoglobin 11.9 g/dl (12.0-16.0); Mean Corpuscular Hemoglobin 29.2 pg (25.0-34.0); Mean Corpuscular Hgb Conc 31.8 g/dL (32.0-36.0); Mean Corpuscular Volume 91.7 fL (80.0-100.0); Mean Platelet Volume 10.3 fL (9.4-12.3); Platelet Count 214 K/uL (130-400); RDW Coefficient of Variation 15.5 % (11.5-14.5); RDW Standard Deviation 51.6 fL (36.4-46.3); Red Blood Count 4.08 M/uL (3.93-5.22); White Blood Count 8.89 K/ul (4.8-10.8)
[2021-11-12 07:30] LABS: BUN Creatinine Ratio 24.1 (10-20); Calcium 9.3 mg/dl (8.5-10.1); Creatinine Clr Calc Pharmacy 21.9 ml/min; Est GFR (African American) 38.7 ml/min; Est GFR (Non-African American) 33.4 ml/min; Magnesium 2.1 mg/dl (1.7-2.4)
[2021-11-12] MEDS: METOPROLOL SUCC 50MG EXT REL TAB PO SCH (07:31)
[2021-11-12] MEDS: dilTIAZem ER 120 MG CAPCR PO SCH (07:32)
[2021-11-12] MEDS: FAMOTIDINE 20 MG TAB PO SCH (07:32)
[2021-11-12] MEDS: predniSONE 2.5 MG TAB PO SCH (07:32)
[2021-11-12] MEDS: ASPIRIN 81 MG ECTAB PO SCH (07:32)
[2021-11-12] MEDS: FLUTICASONE/VILANTEROL 100/25MCG 14 PUFFS/INHALER INH SCH (07:33)
[2021-11-12] MEDS: DOXAZosin MESYLATE 4 MG TAB PO SCH (07:33)
[2021-11-12] MEDS: APIXABAN 5 MG TABLET PO SCH (07:33)
[2021-11-12] MEDS: FUROSEMIDE INJ 20 MG/2 ML VIAL IV SCH (07:37)
[2021-11-12] MEDS: TELMISARTAN 40 MG TAB PO SCH (07:47)
--- NOTE | 2021-11-12 08:20 | Hospitalist Progress Note ---
Date of Service November 12, 2021 Assessment & Plan (1) CHF (congestive heart failure): Plan: Acute on chronic hypoxemic respiratory failure due to acute on chronic diastolic CHF Patient admitted with increased hypoxia requiring 15L Oxymask to maintain O2 saturations with baseline 4L and noted to be in afib with rates 140s in the ER BNP checked, elevated to 2433 (1251 in June), * multi-factorial -- likely worsening aortic stenosis, hypothyroidism with likely medication non-compliance at home in patient with suspected underlying cognitive decline (did have covid last winter, daughter moon has been helping with getting her medications/pill box but even then some issues at home), afib with [facility] Cards consulted --> For CHF * agreed to continue lasix 20mg IV BID --> placed on hold after AM dose 11/12 given Cr 1.41 from 1.06 however was in 1.4s in June, will also hold telmisartan * Monitor weights/I&O -- inaccurate weight this morning, asked RN to recheck * ---->> Weight reported this afternoon at 71kg (79.8kg on admit), appears weight was closer to 71kg in June prior to starting the prednisone * will repeat BNP in AM for comparison -->For AFIB: * Started eliquis 5mg BID evening 11/10 --> continue at discharge * Changed amlodipine to cardizem 120mg daily (extra 30mg dose for 11/11 for afib w/ rates to 170s when replacing mag/K), continued on this dose and remained in NSR since yesterday afternoon 11/11 around 2pm ?tachy/jemima given when in afib rates to 150-170s, when in NSR is bradycardic with rates 40-60s. Messaged Dr Cruz as covering for Dr Prabhakar, no official note from yesterday in system Hypothyroidism --> TSH elevated however recently increased Synthroid from 137 to 150mcg and continued this dose, repeat outpatient within the month Anemia --> iron deficiency, unclear cause. no active bleeding. does have hx renal cell carcinoma s/p nephrectomy. Venofer IV replacement 200mg IV x 3 doses thus far, plan for additional 200mg x 2 doses while inpatient Hgb 11.9 on am labs Supplemental O2 as needed -- currently stable on her usual 4L NC, titrate as above. check vbg w/ repeat labs Delirium/Hallucinations Patient found with O2 off last evening with O2 dipping to 80s, replaced and up to 7L this morning and back to usual levels. daughter states she takes off at home as well, hypoxia could have also been contributing to confusion unfortunately was agitated and called 911 last evening and given zyprexa 2.5mg IM x 2 doses, likely worsening confusion/hallucinations/delirium this morning. does appear has some sundowning at home per previous conversation with daughter moon, did not do well with lorazepam and other antipsychotics in the past. poor sleep schedule. 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 (2) Atrial fibrillation: Plan: Patient with remote history of atrial fibrillation not on anticoagulation TSH elevated as above -- synthroid 150mcg daily and rec repeat in a month to see if further adjustments needed Continue metoprolol 100mg daily, diltiazem 120mg as outlined above for rate control and discontinued amlodipine (moon stated was on dilt in past with better effectiveness) Flipped back into afib AM 11/11 and Mag/K replacement and additional 30mg PO diltiazem provided and remains on the 120mg daily dose and has been in NSR since afternoon 11/11 ~2pm Consider amio if continued to have frequent episodes with high rates. Also ?tachy/jemima Monitor on telemetry Keep Mag ~2, K~4 (3) Hypoxia: Plan: Acute on chronic hypoxemic respiratory failure due to acute on chronic diastolic CHF -- typically maintained on 4L O2 at baseline since last winter with +COVID typically maintained on 4L Treatment as outlined above -- diuretics, venofer checking vbg in am will repeat CXR today for eval titrate to maintain sats (4) Anemia: Plan: Globin in the 10-11 range, normocytic With significant iron deficiency here with transferrin saturation of 9% -- un clear cause Giving IV Venofer as above 3/5 doses thus far 200mg B12 is normal, folate wnl Could also be related to hypothyroidism -on levothyroxine as above, recent adjustments We will need to carefully watch hemoglobin as starting on anticoagulation Hgb 10.9 --> 11.9 with diuresis and venofer replacements, no bleeding reported. fecal occult ordered Monitor (5) COPD (chronic obstructive pulmonary disease): Plan: Patient with COPD/asthma. She follows with pulmonary and recently started on advair Had been on higher doses of steroids, up to 5mg BID, then decreased to 7.5mg daily and had been on that for about a month prior to titrating down, had 3 days 2.5mg left to complete taper (DONE 11/12) Patient on sliding scale diuretics at home per daughter and to take for >3lb/day or 5lb in a week but unsure if she is actually weighing herself * Patient DENIED having to take her lasix more frequently, per daughter she re ported she took it TWICE last week Albuterol prn No wheezing on exam, no increased SOB reported but even with increased O2 needs she denied feeling short of breath Stable on usual 4L but will monitor with iron replacement/holding further diuretics for today (6) Hypertension: Plan: Chronic. Labile at times but agitated last evening Denied headache/visual symptoms Continue metoprolol 100mg, diltiazem 120mg daily as above D/c'd amlodipine Hold telmisartan for AM given Cr 1.41, holding further diuretics BP 159/78 currently Monitor (7) Hypothyroidism: Plan: Chronic. Patient recently had her Synthroid dose increased to 150 mcg daily by PCP during October appointment from 137mcg for prior elevation to 14 TSH decreased from prior but only about 4 weeks out given afib with elevated rates as above recommend continuing the 150mcg dose, ensuring taking appropriately and repeating labs in 4 weeks outpatient (8) Stage III chronic kidney disease: Plan: Of note, hx L radical and right partial nephrectomy for renal cell carcinoma Baseline Cr 1.5 per last note from Dr Johnson Cr 1.12--> 1.11 --> 1.06 after continued 20mg IV lasix BID and venofer replacement as above however did bump to 1.41 on AM labs however as noted, baseline Cr per Dr Johnson's last note ~1.5 Holding telmisartan for tomorrow/lasix for this evening as above given NO edema currently PO intake Avoid nephrotoxic agents/renal dose when able BMP in AM (9) Hyperlipidemia: Plan: Chronic. Stable. Continue atorvastatin 20 mg p.o. nightly DVT Prophylaxis Placed on eliquis 5mg BID as above-- continue at d/c for afib Social issues Longstanding problems at home with compliance/medications/follow-up and being angry/aggressive with daughter and accusations to sell her house. Patient lives alone, unsafe to return home in current condition however would benefit from short term rehab (accepted to [facility] when able) and once closer to d/c from [facility] can persue placement in [facility]. CM following (10) Parotid lymphadenopathy: Plan: noted hx of such, given prior renal cell carcinoma, they had PET scan in February which did not show any uptake per daughter, her and patient with swelling to neck since covid and unchanged did appreciate some enlarged lymph nodes on the left, if large enough could consider bx outpatient Plan continued inpatient stay monitor on telemetry hold further diuretics for now, venofer replacement frequent orientation, 1:1 for safety. melatonin for tonight, seroquel if needed for Admission and Anticipated Discharge Date Admission Date: November 09, 2021 Supervising Physician Co-Signing Physician Notes PA Supervision Note: I did not personally see or examine the patient today, but I verified all deleon points of GAB Pires's assessment and plan with the following exceptions/additions: None Subjective Evaluated this morning Stated she remembered calling 911 last night (twice) but that someone was being mean to someone else at the home. Was given Zyprexa 2.5 IM x 2. Does recall certain things like her daughter Trista coming to visit. Stated she didn't get great sleep, that she typically doesn't. Discussed trying something natural like melatonin. She states she thought she had something in the past like Ativan or lorazepam maybe. Discussed melatonin much safer given possible delirium. Knows in [facility] but not oriented to time. Per RN had been seeing puppies earlier in the morning, but taking pills, speech clear, no focal deficits observed. Patient does states she saw Dr Cruz this morning and he wanted to keep pushing the diuretics for fluids. Discussed I would reach out to him. States breathing stable, no increased shortness of breath. No palpitations. No chest pain, nausea or abdominal pain. 1:1 at bedside. She is agreeable and aware therapy had recommended rehab. Called Moon for update, no answer. Voicemail left. Updated Moon at bedside later this afternoon. Patient with hallucinations/confusions but no focal deficit. Discussed antipsychotic used last evening. Moon states that and lorazepam use in the past (noted by patient earlier as well) and has had increased confusion with use. Discussed melatonin as well as reaching out to psych to see about recs if continued owning/agitation at night. Remains on 1:1. Questions/concerns addressed. Review of Systems Review of Systems: All systems reviewed & are unremarkable except as noted in HPI & below Physical Exam Physical Exam: General: WD/WN female with 1:1 at beside, alert to person, knows she is in the hospital (at times), delirius with intermittent confusion no slurred speech or facial droop, no dystonic movements HEENT: head normocephalic, atraumatic, pupils equal in size, trachea midline without deviation, slightly dry mm +lymphadenopathy (reports chronic since covid), LEFT SIDED Resp: CTAB, diminished in the bases with associated crackles, 94% on 4L CV: regular rhythm, bradycardic with rate 54bpm, 4-5/6 systolic murmur across precordium, no calf tenderness, trace pitting LE edema (almost completely resolved) GI: +BS, soft, nontender : purewick in place draining concentrated yellow urine MSK/Neuro: no focal deficit, no slurred speech or facial droop, able to follow commands but needs frequent orientation, easily forgetful, impulsive Psych: alert to person/place, not event times intermittent confusion Results & Data Results & Data ([facility]) Vital Signs (Past 12 Hours) Vital Signs Temp Pulse Pulse Pulse Resp BP Pulse Ox 11/12/21 08:01 36.7 C 77 16 163/75 H 94 11/12/21 02:23 36.6 C 56 L 18 127/81 90 11/11/21 22:10 61 O2 Del Method O2 Flow Rate 11/12/21 08:01 Nasal Cannula 6 11/12/21 02:23 Nasal Cannula 3 11/11/21 22:10 Laboratory Results 11/12/21 11/12/21 Range/Units 06:22 06:22 WBC 8.89 (4.8-10.8) K/ul RBC 4.08 (3.93-5.22) M/uL Hgb 11.9 L (12.0-16.0) g/dl Hct 37.4 (34.1-44.9) % MCV 91.7 (80.0-100.0) fL MCH 29.2 (25.0-34.0) pg MCHC 31.8 L (32.0-36.0) g/dL RDW Std Deviation 51.6 H (36.4-46.3) fL RDW Coeff of Yanelis 15.5 H (11.5-14.5) % Plt Count 214 (130-400) K/uL MPV 10.3 (9.4-12.3) fL Sodium 141 (136-145) mmol/L Potassium 4.0 (3.5-5.1) mmol/L Chloride 103 (98-107) mmol/L Carbon Dioxide 29 (21-32) mmol/L Anion Gap 9 (3-11) BUN 34 H (6-23) mg/dl Creatinine 1.41 H D (0.6-1.2) mg/dl Est Cr Clr Drug Dosing 21.9 ml/min Est GFR ( Amer) 38.7 ml/min Est GFR (Non-Af Amer) 33.4 ml/min BUN/Creatinine Ratio 24.1 H (10-20) Glucose 97 (70-99(Fasting)) mg/dl Calcium 9.3 (8.5-10.1) mg/dl Magnesium 2.1 (1.7-2.4) mg/dl PG Care Time/CCT Total # of Minutes Spent Total Time Spent with Patient: Total time spent is greater than 50% in coordination of care (as documented) at patient's floor/unit and/or counseling patient: Coding Level of Care Code 95248 Subseq Hosp Care Lvl 3 Diagnoses CHF (congestive heart failure) I50.9 Atrial fibrillation I48.91 Hypoxia R09.02 Anemia D64.9 COPD (chronic obstructive pulmonary disease) J44.9 Hypertension I10 Hypothyroidism E03.9 Stage III chronic kidney disease N18.3 Hyperlipidemia E78.5 Parotid lymphadenopathy R59.0
[2021-11-12] MEDS ORDERED: IRON SUCROSE 200 MG in 0.9 % SODIUM CHLORIDE 100 ML IV ONE (10:45)
[2021-11-12] MEDS ORDERED: QUEtiapine FUMARATE 25 MG TABLET PO PRN (15:28)
--- NOTE | 2021-11-12 18:08 | Communication Note ---
Date of Service: November 12, 2021 [facility] given agitation/delirium agreed with scheduled melatonin and would schedule Seroquel 12.5mg for tonight. can increase to 25mg HS or 12.5mg BID if needed but wouldn't go above 25mg BID. Could use IM zyprexa 2.5mg if needed only for SEVERE agitation If continued issues/worsening, Dr Rogers to be tax commissioner tomorrow and can officially consult
[2021-11-12] MEDS ORDERED: OLANZapine 10 MG/2.1 ML SDV IM PRN (18:09)
--- NOTE | 2021-11-12 19:49 | XRay Report ---
XR chest 1V portable HISTORY: 86 years-old Female f/u up acute shortness of breath COMPARISON: Chest radiograph 11/09/2021 TECHNIQUE: Portable AP view of the chest FINDINGS: Cardiac silhouette is enlarged. Mitral annular calcifications. No pneumothorax. Trace right and small left pleural effusions. There is mildly improved aeration of the lungs with persistent interstitial coarsening and left basilar predominant airspace densities. Degenerative changes of the shoulders and spine. Surgical clips of the abdomen. Partially imaged lumbar spinal fusion hardware. Chondroid lesi on of the proximal left humerus. IMPRESSION: 1. Cardiomegaly with mildly improved aeration of the lungs. 2. Small left and trace right pleural effusions. ACT 112: Negative or not required by law. The above report was generated using voice recognition software. It may contain grammatical, syntax o r spelling errors. Electronically signed by: Ayush Partida M.D. 11/12/2021 7:47 PM
[2021-11-12] MEDS ORDERED: QUEtiapine FUMARATE 25 MG TABLET PO SCH (21:00)
[2021-11-13] MEDS: ATORVASTATIN 20 MG TAB PO SCH ×2 (00:04→20:45)
[2021-11-13] MEDS: MELATONIN 3 MG TAB PO SCH ×2 (00:04→20:45)
[2021-11-13] MEDS: DOXAZosin MESYLATE 4 MG TAB PO SCH ×3 (00:04→20:45)
[2021-11-13] MEDS: APIXABAN 5 MG TABLET PO SCH ×3 (00:04→20:45)
[2021-11-13] MEDS: SERTRALINE HCL 100 MG TABLET PO SCH ×2 (00:05→20:45)
[2021-11-13] MEDS: DOCUSATE SODIUM 100 MG CAP PO SCH ×2 (00:08→20:47)
[2021-11-13 05:34] LABS: Base Excess VBG 8.1 mEq/L; HCO3 VBG 35 mmol/L; Oxygen Saturation VBG 78.4 %; PCO2 VBG 58 mmHg (38-50); PO2 VBG 48 mmHg; pH VBG 7.39 (7.36-7.41)
[2021-11-13] MEDS: LEVOTHYROXINE SODIUM 150 MCG TABLET PO SCH (05:39)
[2021-11-13 05:50] LABS: Basophils # (auto) 0.08 K/uL (0-0.2); Eosinophils # (auto) 0.19 K/uL (0-0.50); Eosinophils % (auto) 2.5 %; Hematocrit (blood only) 37.1 % (34.1-44.9); Hemoglobin 11.7 g/dl (12.0-16.0); Immature Granulocytes # (auto) 0.06 K/uL (0.00-0.02); Immature Granulocytes % (auto) 0.8 %; Lymphocytes # (auto) 1.09 K/uL (1.2-3.4); Lymphocytes % (auto) 14.2 %; Mean Corpuscular Hemoglobin 29.5 pg (25.0-34.0); Mean Corpuscular Hgb Conc 31.5 g/dL (32.0-36.0); Mean Corpuscular Volume 93.5 fL (80.0-100.0); Mean Platelet Volume 9.6 fL (9.4-12.3); Monocytes # (auto) 0.68 K/uL (0.24-0.82); Monocytes % (auto) 8.9 %; Neutrophils # (auto) 5.56 K/uL (1.4-6.5); Neutrophils % (auto) 72.6 %; Platelet Count 202 K/uL (130-400); RDW Coefficient of Variation 15.4 % (11.5-14.5); RDW Standard Deviation 52.6 fL (36.4-46.3); Red Blood Count 3.97 M/uL (3.93-5.22); White Blood Count 7.66 K/ul (4.8-10.8)
[2021-11-13 05:58] LABS: BUN Creatinine Ratio 27.2 (10-20); Bilirubin,Total 0.8 mg/dl (0.2-1.0); Calcium 9.1 mg/dl (8.5-10.1); Creatinine Clr Calc Pharmacy 27.2 ml/min; Est GFR (African American) 44.8 ml/min; Est GFR (Non-African American) 38.6 ml/min; Magnesium 1.9 mg/dl (1.7-2.4); Potassium 4.2 mmol/L (3.5-5.1)
[2021-11-13 05:59] LABS: Albumin Globulin Ratio 1.7 (0.9-2); Albumin Level 3.8 gm/dl (3.4-5.0); Globulin 2.3 gm/dl (2.5-4.0); Total Protein 6.1 gm/dl (6.0-8.3)
[2021-11-13] MEDS: ASPIRIN 81 MG ECTAB PO SCH (08:24)
[2021-11-13] MEDS: METOPROLOL SUCC 50MG EXT REL TAB PO SCH (08:24)
[2021-11-13] MEDS: FLUTICASONE/VILANTEROL 100/25MCG 14 PUFFS/INHALER INH SCH (08:24)
[2021-11-13] MEDS: FAMOTIDINE 20 MG TAB PO SCH (08:24)
[2021-11-13] MEDS: THIAMINE HCL 100 MG TAB PO SCH ×2 (08:25→20:45)
[2021-11-13] MEDS: IRON SUCROSE 200 MG in 0.9 % SODIUM CHLORIDE 100 ML IV SCH (08:25)
[2021-11-13] MEDS: dilTIAZem ER 120 MG CAPCR PO SCH (08:25)
[2021-11-13] MEDS: FUROSEMIDE 20 MG TAB PO SCH (10:20)
[2021-11-13] MEDS ORDERED: TELMISARTAN 40 MG TAB PO ONE (12:38)
[2021-11-13] MEDS ORDERED: QUEtiapine FUMARATE 25 MG TABLET PO PRN (13:16)
--- NOTE | 2021-11-13 13:20 | Hospitalist Progress Note ---
Date of Service November 13, 2021 Assessment & Plan (1) CHF (congestive heart failure): Plan: Acute on chronic hypoxemic respiratory failure due to acute on chronic diastolic CHF Patient admitted with increased hypoxia requiring 15L Oxymask to maintain O2 saturations with baseline 4L requirement at home and noted to be in afib with rates 140s in the ER CXR with pulm edema and pleural effusions on admission BNP elevated to 2433 (1251 in June), Acute on chronic diastolic CHF 2/2 multi-factorial causes: worsening aortic stenosis, hypothyroidism with likely medication non-compliance at home in patient with suspected underlying cognitive decline, chronic prednisone use x 5 months, and afib with RVR Cardiology consulted-recs appreciated -diuresed with IV lasix bid for several days--> weight down, weaned back to baseline O2, no further respiratory distress, much improved -Career Development Manager and BUN rising and IV lasix stopped 11/12. Career Development Manager improved to 1.2 -start lasix 20mg po daily (home dose lasix 20mg prn leg swelling) -daily weights, I/Os, low sodium diet -work on BP control, rate control--> add telmisartan 80mg daily back on today, added diltaiazem for rate control for Afib (dcd home amlodipine) (2) Atrial fibrillation: Plan: Patient with remote history of atrial fibrillation not on anticoagulation Presented with rapid Afib, rates 140s Having paroxysmal Afib for first day or so of admission, now remains in NSR ECHO with preserved EF, mod in 04/2021 -Continue metoprolol 100mg daily -started diltiazem 120mg daily for rate control and discontinued amlodipine -Monitor on telemetry -Keep Mag ~2, K~4 -Started eliquis 5mg BID evening (3) Hypoxia: Plan: Acute on chronic hypoxemic respiratory failure due to acute on chronic diastolic CHF typically maintained on 4L at home since having COVID last year Now acute portion resolved with IV lasix as above Repeat CXR 11/12 with improved aeration of lungs -continue home maintenance inhalers for COPD/asthma -continue O2 4LNC -albuterol prn -continue lasix po daily (4) Acute encephalopathy: Plan: with Delirium/Hallucinations Patient found with O2 off on night of 11/11 with POx dipping to 80s, replaced Was calling 911 and screaming as per RN reports -was given zyprexa 2.5mg IM x 2 doses Does appear has some sundowning at home per daughter -did not do well with lorazepam in the past. Poor sleep schedule. 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 cognitive effects from COVID given decline over past year With foul smelling urine 11/13--> checked UA and has UTI--> treat with keflex I also suspect worsening depression contributing to progressive cognitive impairment Now much improved after receiving Seroquel last night but some mild confusion remains -take off 1:1 -daughter and patient request benadryl for sleep because she frequently has taken this at home previously with success for sleep -make Seroquel prn rather than scheduled -promote good sleep/wake cycles -treat UTI with abx -increase sertraline to 150mg po hs (5) Anemia: Plan: Hgb in the 10-11 range, normocytic With significant iron deficiency here with transferrin saturation of 9% Giving IV Venofer as above 3/5 doses thus far 200mg B12 is normal, folate wnl Could also be related to hypothyroidism -on levothyroxine as above, recent adjustments We will need to carefully watch hemoglobin as starting on anticoagulation Hgb 10.9 --> 11.9 with diuresis and venofer replacements, no bleeding reported. fecal occult ordered no active bleeding. does have hx renal cell carcinoma s/p nephrectomy. -follow as outpt (6) COPD (chronic obstructive pulmonary disease): Plan: Patient with COPD/asthma. She follows with pulmonary and recently started on advair Had been on higher doses of steroids, up to 5mg BID, then decreased to 7.5mg daily and had been on that for about a month prior to titrating down, had 3 days 2.5mg left to complete taper (DONE 11/12) -chronic O2 -continue maintenance inhalers (7) Hypertension: Plan: Remains quite elevated -Continue metoprolol 100mg, diltiazem 120mg daily as above -D/c'd amlodipine -restart telmisartan which was held for renal insufficiency -continue lasix po (8) Hypothyroidism: Plan: Patient recently had her Synthroid dose increased to 150 mcg daily by PCP during October appointment from 137mcg for prior elevation to TSH 14 TSH decreased from prior at 7 but only about 4 weeks out-improving (9) Stage III chronic kidney disease: Plan: Of note, hx L radical and right partial nephrectomy for renal cell carcinoma Baseline Cr 1.5 per last note from Dr Johnson Avoid nephrotoxic agents/renal dose when able (10) Hyperlipidemia: Plan: Chronic. Stable. Continue atorvastatin 20 mg p.o. nightly (11) Parotid lymphadenopathy: Plan: noted hx of such, given prior renal cell carcinoma, they had PET scan in February which did not show any uptake per daughter, her and patient with swelling to neck since covid and unchanged did appreciate some enlarged lymph nodes on the left, if large enough could consider bx outpatient (12) Aortic stenosis: Plan: moderate on last recent ECHO monitor as outpt Plan Dispo- Longstanding problems at home with compliance/medications/follow-up and being angry/aggressive with daughter and accusations to sell her house. Patient lives alone, unsafe to return home in current condition however would benefit from short term rehab (accepted to [facility] when able) and once closer to d/c from [facility] can persue placement in [facility]. CM following Plan to dc to [facility] Monday as long as continues to be doing well Admission and Anticipated Discharge Date Admission Date: November 09, 2021 Anticipated date of discharge: 11/14/21 Subjective Pt reports feeling much better today. Aside from being occasionally forgetful, she was very pleasant, fluent in her conversation, answering questions appropriately. Denies pain or SOB. Was awake until 3:00 AM but then finally slept and slept in a bit this AM. Has been eating all her meals, moving bowels. RN reports pt's urine smells very foul. Pt frequently refers back to her missing her dog at home and how she likes sp eaking to her dog when she needs to feel better. SHe misses her since he moved into a NH. When asked if she feels more depressed, she refers back to having her dog to talk to at home. She is agreeable to increasing her Zoloft dose. Tele with NSR normal rates, no Afib Daughter at bedside and discussed pt's condition and care for quite some time. Review of Systems Review of Systems: All systems reviewed & are unremarkable except as noted in HPI & below Physical Exam Constitutional: WD/WN, vitals as above Eyes: + anicteric sclerae Neck: trachea midline, no thyromegaly Respiratory: normal respiratory effort, lungs clear to auscultation Cardiovascular: Rate/Rhythm: regular rate and regular rhythm Heart Sounds: + murmur (3/6 ASHLEIGH at RUSB) Extremities: no edema Gastrointestinal (Abdomen): normal bowel sounds, soft, nontender, no hepatosplenomegaly Musculoskeletal: Extremities: extremities normal to inspection; no cyanosis and no clubbing Skin: no rashes, warm and dry Neurologic: moves all extremities and awake; no focal motor deficits Psychiatric: Orientation: alert, oriented to person, oriented to place and cooperative Apperance: appropriately dressed Eye Contact: good eye contact Speech: normal rate/rhythm/volume of speech Lymphatic: no lymphedema Results & Data Results & Data ([facility]) Vital Signs (Past 12 Hours) Vital Signs Temp Pulse Pulse Resp BP BP Pulse Ox 11/13/21 10:23 11/13/21 08:04 36.5 C 68 16 190/106 H 95 11/13/21 07:22 63 11/13/21 01:39 54 L 16 161/90 H 94 O2 Del Method O2 Flow Rate 11/13/21 10:23 Nasal Cannula 4 11/13/21 08:04 Nasal Cannula 4 11/13/21 07:22 11/13/21 01:39 Nasal Cannula 4 Laboratory Results 11/13/21 11/13/21 11/13/21 Range/Units 05:21 05:21 05:21 WBC (4.8-10.8) K/ul RBC (3.93-5.22) M/uL Hgb (12.0-16.0) g/dl Hct (34.1-44.9) % MCV (80.0-100.0) fL MCH (25.0-34.0) pg MCHC (32.0-36.0) g/dL RDW Std Deviation (36.4-46.3) fL RDW Coeff of Yanelis (11.5-14.5) % Plt Count (130-400) K/uL MPV (9.4-12.3) fL Immature Gran % (Auto) % Neut % (Auto) % Lymph % (Auto) % [place] % (Auto) % Eos % (Auto) % Baso % (Auto) % Neut # (Auto) (1.4-6.5) K/uL Lymph # (Auto) (1.2-3.4) K/uL [place] # (Auto) (0.24-0.82) K/uL Eos # (Auto) (0-0.50) K/uL Baso # (Auto) (0-0.2) K/uL Immature Gran # (Auto) (0.00-0.02) K/uL VBG pH 7.39 (7.36-7.41) VBG pCO2 58 H (38-50) mmHg VBG pO2 48 mmHg VBG HCO3 35 mmol/L VBG O2 Saturation 78.4 % VBG Base Excess 8.1 mEq/L Sodium 142 (136-145) mmol/L Potassium 4.2 (3.5-5.1) mmol/L Chloride 106 (98-107) mmol/L Carbon Dioxide 31 (21-32) mmol/L Anion Gap 5 (3-11) BUN 34 H (6-23) mg/dl Creatinine 1.25 H (0.6-1.2) mg/dl Est Cr Clr Drug Dosing 27.2 ml/min Est GFR ( Amer) 44.8 ml/min Est GFR (Non-Af Amer) 38.6 ml/min BUN/Creatinine Ratio 27.2 H (10-20) Glucose 81 (70-99(Fasting)) mg/dl POC Glucose (70-99) mg/dl Calcium 9.1 (8.5-10.1) mg/dl Magnesium 1.9 (1.7-2.4) mg/dl Total Bilirubin 0.8 (0.2-1.0) mg/dl AST 16 (13-39) U/L ALT 18 (7-52) U/L Alkaline Phosphatase 48 (34-104) U/L B-Natriuretic Peptide 569 H (0-100) pg/ml Total Protein 6.1 (6.0-8.3) gm/dl Albumin 3.8 (3.4-5.0) gm/dl Globulin 2.3 L (2.5-4.0) gm/dl Albumin/Globulin Ratio 1.7 (0.9-2) 11/13/21 11/13/21 Range/Units 05:21 00:12 WBC 7.66 (4.8-10.8) K/ul RBC 3.97 (3.93-5.22) M/uL Hgb 11.7 L (12.0-16.0) g/dl Hct 37.1 (34.1-44.9) % MCV 93.5 (80.0-100.0) fL MCH 29.5 (25.0-34.0) pg MCHC 31.5 L (32.0-36.0) g/dL RDW Std Deviation 52.6 H (36.4-46.3) fL RDW Coeff of Yanelis 15.4 H (11.5-14.5) % Plt Count 202 (130-400) K/uL MPV 9.6 (9.4-12.3) fL Immature Gran % (Auto) 0.8 % Neut % (Auto) 72.6 % Lymph % (Auto) 14.2 % [place] % (Auto) 8.9 % Eos % (Auto) 2.5 % Baso % (Auto) 1.0 % Neut # (Auto) 5.56 (1.4-6.5) K/uL Lymph # (Auto) 1.09 L (1.2-3.4) K/uL [place] # (Auto) 0.68 (0.24-0.82) K/uL Eos # (Auto) 0.19 (0-0.50) K/uL Baso # (Auto) 0.08 (0-0.2) K/uL Immature Gran # (Auto) 0.06 H (0.00-0.02) K/uL VBG pH (7.36-7.41) VBG pCO2 (38-50) mmHg VBG pO2 mmHg VBG HCO3 mmol/L VBG O2 Saturation % VBG Base Excess mEq/L Sodium (136-145) mmol/L Potassium (3.5-5.1) mmol/L Chloride (98-107) mmol/L Carbon Dioxide (21-32) mmol/L Anion Gap (3-11) BUN (6-23) mg/dl Creatinine (0.6-1.2) mg/dl Est Cr Clr Drug Dosing ml/min Est GFR ( Amer) ml/min Est GFR (Non-Af Amer) ml/min BUN/Creatinine Ratio (10-20) Glucose (70-99(Fasting)) mg/dl POC Glucose 96 (70-99) mg/dl Calcium (8.5-10.1) mg/dl Magnesium (1.7-2.4) mg/dl Total Bilirubin (0.2-1.0) mg/dl AST (13-39) U/L ALT (7-52) U/L Alkaline Phosphatase (34-104) U/L B-Natriuretic Peptide (0-100) pg/ml Total Protein (6.0-8.3) gm/dl Albumin (3.4-5.0) gm/dl Globulin (2.5-4.0) gm/dl Albumin/Globulin Ratio (0.9-2) PG Care Time/CCT Total # of Minutes Spent Total Time Spent with Patient: Total time spent is greater than 50% in coordination of care (as documented) at patient's floor/unit and/or counseling patient: Coding Level of Care Code 01416 Subseq Hosp Care Lvl 3 Diagnoses CHF (congestive heart failure) I50.9 Atrial fibrillation I48.91 Hypoxia R09.02 Acute encephalopathy G93.40 Anemia D64.9 COPD (chronic obstructive pulmonary disease) J44.9 Hypertension I10 Hypothyroidism E03.9 Stage III chronic kidney disease N18.3 Hyperlipidemia E78.5 Parotid lymphadenopathy R59.0 Aortic stenosis I35.0
[2021-11-13 15:46] LABS: Appearance Urine Turbid (Clear); Bacteria Urine Automated 4+ (Negative); Bilirubin Urine Negative (Negative); Blood Urine Trace (Negative); Color Urine Yellow; Epithelial Cell Urine Auto 20-30 /lpf (0-5); Glucose Urine UA Negative (Negative); Ketones Urine Negative (Negative); Leukocyte Esterase Urine 2+ (Negative); Nitrite Urine Negative (Negative); Protein Urine Trace (Negative); RBC Urine Automated 0-4 /hpf (0-4); Specific Gravity Urine 1.013 (1.000-1.030); Urobilinogen Urine Negative (Negative); WBC Urine Automated >30 /hpf (0-5); pH Urine 5.5 (4.5-7.5)
[2021-11-13] MEDS: cephALEXin 250 MG CAP PO SCH ×2 (17:31→23:06)
[2021-11-13] MEDS: diphenhydrAMINE Capsule 25 MG CAP PO SCH (20:45)
[2021-11-14] MEDS: LEVOTHYROXINE SODIUM 150 MCG TABLET PO SCH (06:26)
[2021-11-14 08:01] LABS: BUN Creatinine Ratio 27.4 (10-20); Est GFR (African American) 48.5 ml/min; Est GFR (Non-African American) 41.9 ml/min; Potassium 4.1 mmol/L (3.5-5.1)
[2021-11-14] MEDS ORDERED: hydrALAZINE HCL 25 MG TAB PO ONE (08:45)
[2021-11-14] MEDS: FLUTICASONE/VILANTEROL 100/25MCG 14 PUFFS/INHALER INH SCH (09:19)
[2021-11-14] MEDS: THIAMINE HCL 100 MG TAB PO SCH ×2 (09:20→20:28)
[2021-11-14] MEDS: TELMISARTAN 40 MG TAB PO SCH (09:20)
[2021-11-14] MEDS: IRON SUCROSE 200 MG in 0.9 % SODIUM CHLORIDE 100 ML IV SCH (09:20)
[2021-11-14] MEDS: METOPROLOL SUCC 50MG EXT REL TAB PO SCH (09:20)
[2021-11-14] MEDS: dilTIAZem ER 120 MG CAPCR PO SCH (09:21)
[2021-11-14] MEDS: FUROSEMIDE 20 MG TAB PO SCH (09:21)
[2021-11-14] MEDS: FAMOTIDINE 20 MG TAB PO SCH (09:21)
[2021-11-14] MEDS: ASPIRIN 81 MG ECTAB PO SCH (09:21)
[2021-11-14] MEDS: DOXAZosin MESYLATE 4 MG TAB PO SCH ×2 (09:21→20:40)
[2021-11-14] MEDS: cephALEXin 250 MG CAP PO SCH ×2 (09:21→16:19)
[2021-11-14] MEDS: APIXABAN 5 MG TABLET PO SCH ×2 (09:21→20:28)
[2021-11-14] MEDS ORDERED: hydrALAZINE HCL 20 MG/ML VIAL IV STA (12:34)
--- NOTE | 2021-11-14 18:08 | Hospitalist Progress Note ---
Date of Service November 14, 2021 Assessment & Plan (1) CHF (congestive heart failure): Plan: Acute on chronic hypoxemic respiratory failure due to acute on chronic diastolic CHF Patient admitted with increased hypoxia requiring 15L Oxymask to maintain O2 saturations with baseline 4L requirement at home and noted to be in afib with rates 140s in the ER CXR with pulm edema and pleural effusions on admission BNP elevated to 2433 (1251 in June), Acute on chronic diastolic CHF 2/2 multi-factorial causes: worsening aortic stenosis, hypothyroidism with likely medication non-compliance at home in patient with suspected underlying cognitive decline, chronic prednisone use x 5 months, and afib with RVR Cardiology consulted-recs appreciated -diuresed with IV lasix bid for several days--> weight down, weaned back to baseline O2 4L, no further respiratory distress, much improved -Electric Motor Mechanic and BUN rising and IV lasix stopped 11/12. Electric Motor Mechanic improved to 1.1 -continue lasix 20mg po daily (home dose lasix 20mg prn leg swelling) -daily weights, I/Os, low sodium diet -continue to work on BP control, rate control--> restarted telmisartan 80mg daily, added diltiazem for rate control for Afib (dcd home amlodipine), continue Cardura,metoprolol, and may have to add on hydralazine (2) Atrial fibrillation: Plan: Patient with remote history of atrial fibrillation not on anticoagulation Presented with rapid Afib, rates 140s Having paroxysmal Afib for first day or so of admission, now remains in NSR ECHO with preserved EF, mod in 04/2021 -Continue metoprolol 100mg daily -started diltiazem 120mg daily for rate control and discontinued amlodipine -Monitor on telemetry -Keep Mag ~2, K~4 -Started eliquis 5mg BID (3) Hypoxia: Plan: Acute on chronic hypoxemic respiratory failure due to acute on chronic diastolic CHF typically maintained on 4L at home since having COVID last year Now acute portion resolved with IV lasix as above Repeat CXR 11/12 with improved aeration of lungs -continue home maintenance inhalers for COPD/asthma -continue O2 4LNC -albuterol prn -continue lasix po daily (4) Acute encephalopathy: Plan: with Delirium/Hallucinations Patient found with O2 off on night of 11/11 with POx dipping to 80s, replaced Was calling 911 and screaming as per RN reports -was given zyprexa 2.5mg IM x 2 doses -continues to have sundowning each evening but not as significant now With likely underlying cognitive impairment, needs formal neuropsych testing or Neurology evaluation for diagnosis Has some sundowning at home per daughter -did not do well with lorazepam in the past. Poor sleep schedule. With foul smelling urine 11/13--> checked UA and has UTI--> treat with keflex I also suspect worsening depression contributing to progressive cognitive impairment Daughter prefers to not give Seroquel on a scheduled basis. Daughter prefers benadryl be used for insomnia Is now off 1:1 for > 24 hrs -continue Seroquel prn agitation -promote good sleep/wake cycles -treat UTI with abx -increased sertraline to 150mg po hs for improved tx of depression (5) Anemia: Plan: Hgb in the 10-11 range, normocytic With significant iron deficiency here with transferrin saturation of 9% Giving IV Venofer as above 4/5 doses thus far 200mg B12 is normal, folate wnl Could also be related to hypothyroidism -on levothyroxine as above, recent adjustments We will need to carefully watch hemoglobin as starting on anticoagulation Hgb 10.9 --> 11.9 with diuresis and venofer replacements, no bleeding reported. fecal occult ordered no active bleeding. does have hx renal cell carcinoma s/p nephrectomy. -follow as outpt (6) COPD (chronic obstructive pulmonary disease): Plan: Patient with COPD/asthma. She follows with pulmonary and recently started on advair Had been on higher doses of steroids, up to 5mg BID, then decreased to 7.5mg daily and had been on that for about a month prior to titrating down, had 3 days 2.5mg left to complete taper (DONE 11/12) -chronic O2 -continue maintenance inhalers (7) Hypertension: Plan: BPs remain quite elevated again today -Continue metoprolol 100mg, diltiazem 120mg daily as above -D/c'd amlodipine when started on dilt -continue telmisartan -continue lasix po -continue Cardura bid -gave hydralazine prn today which was helpful -if BPs continue to remain uncontrolled, could either switch to Coreg from metoprolol as has better BP effect, vs starting po hydralazine (8) Hypothyroidism: Plan: Patient recently had her Synthroid dose increased to 150 mcg daily by PCP during October appointment from 137mcg for prior elevation to TSH 14 TSH decreased from prior at 7 but only about 4 weeks out-improving (9) Stage III chronic kidney disease: Plan: Of note, hx L radical and right partial nephrectomy for renal cell carcinoma Baseline Cr 1.5 per last note from Dr Johnson Avoid nephrotoxic agents/renal dose when able (10) Hyperlipidemia: Plan: Chronic. Stable. Continue atorvastatin 20 mg p.o. nightly (11) Parotid lymphadenopathy: Plan: noted hx of such, given prior renal cell carcinoma, they had PET scan in February which did not show any uptake per daughter, her and patient with swelling to neck since covid and unchanged did appreciate some enlarged lymph nodes on the left, if large enough could consider bx outpatient (12) Aortic stenosis: Plan: moderate on last recent ECHO monitor as outpt (13) UTI (urinary tract infection): Plan: as above continue keflex Ur cx with E. coli, awaiting sensitivities Plan Dispo- Longstanding problems at home with compliance/medications/follow-up and being angry/aggressive with daughter and accusations to sell her house. Patient lives alone, unsafe to return home in current condition however would benefit from short term rehab (accepted to [facility] when able) and once closer to d/c from [facility] can persue placement in [facility]. CM following Plan to dc to [facility] Monday if BPs improved and improved Admission and Anticipated Discharge Date Admission Date: November 09, 2021 Subjective Pt was very agitated last evening around dinner time as per pt's daughter. She was able to sleep later. Daughter does not want the Seroquel used on a scheduled basis, and would rather the patient take benadryl for sleep. Pt was doing very well all day today though other than short term memory loss. No agitation. Denies SOB, CP. Is eating and drinking. Had elevated BPs all day until IV hydralazine given Tele with NSR, rates 60s Review of Systems Review of Systems: All systems reviewed & are unremarkable except as noted in HPI & below Physical Exam Constitutional: WD/WN, vitals as above Eyes: + anicteric sclerae Neck: trachea midline, no thyromegaly Respiratory: normal respiratory effort, lungs clear to auscultation Cardiovascular: Rate/Rhythm: regular rate and regular rhythm Heart Sounds: + murmur (3/6 ASHLEIGH at RUSB) Extremities: no edema Chest (Breasts): Chest: normal inspection of chest Gastrointestinal (Abdomen): normal bowel sounds, soft, nontender, no hepato splenomegaly Musculoskeletal: Extremities: extremities normal to inspection; no cyanosis and no clubbing Skin: no rashes, warm and dry Neurologic: moves all extremities and awake; no focal motor deficits Psychiatric: Orientation: alert, oriented to person, oriented to place and cooperative Apperance: appropriately dressed Eye Contact: good eye contact Speech: normal rate/rhythm/volume of speech Lymphatic: no lymphedema Results & Data Results & Data ([facility]) Vital Signs (Past 12 Hours) Vital Signs Temp Pulse Resp BP BP Pulse Ox O2 Del Method 11/14/21 13:45 58 L 115/62 93 Nasal Cannula 11/14/21 11:41 36.4 C L 79 18 187/114 H 95 Nasal Cannula 11/14/21 08:45 Nasal Cannula 11/14/21 07:45 36.7 C 63 18 179/117 H 93 Nasal Cannula O2 Flow Rate 11/14/21 13:45 4 11/14/21 11:41 4 11/14/21 08:45 4 11/14/21 07:45 4 Laboratory Results 11/14/21 Range/Units 07:02 Sodium 140 (136-145) mmol/L Potassium 4.1 (3.5-5.1) mmol/L Chloride 103 (98-107) mmol/L Carbon Dioxide 33 H (21-32) mmol/L Anion Gap 4 (3-11) BUN 32 H (6-23) mg/dl Creatinine 1.17 (0.6-1.2) mg/dl Est Cr Clr Drug Dosing 29.0 ml/min Est GFR ( Amer) 48.5 ml/min Est GFR (Non-Af Amer) 41.9 ml/min BUN/Creatinine Ratio 27.4 H (10-20) Glucose 80 (70-99(Fasting)) mg/dl Calcium 9.0 (8.5-10.1) mg/dl PG Care Time/CCT Total # of Minutes Spent Total Time Spent with Patient: Total time spent is greater than 50% in coordination of care (as documented) at patient's floor/unit and/or counseling patient: Coding Level of Care Code 84042 Subseq Hosp Care Lvl 2 Diagnoses CHF (congestive heart failure) I50.9 Atrial fibrillation I48.91 Hypoxia R09.02 Acute encephalopathy G93.40 Anemia D64.9 COPD (chronic obstructive pulmonary disease) J44.9 Hypertension I10 Hypothyroidism E03.9 Stage III chronic kidney disease N18.3 Hyperlipidemia E78.5 Parotid lymphadenopathy R59.0 Aortic stenosis I35.0 UTI (urinary tract infection) N39.0
[2021-11-14] MEDS: diphenhydrAMINE Capsule 25 MG CAP PO SCH (20:28)
[2021-11-14] MEDS: ATORVASTATIN 20 MG TAB PO SCH (20:28)
[2021-11-14] MEDS: MELATONIN 3 MG TAB PO SCH (20:28)
[2021-11-14] MEDS: SERTRALINE HCL 100 MG TABLET PO SCH (20:29)
[2021-11-14] MEDS: DOCUSATE SODIUM 100 MG CAP PO SCH (20:40)
[2021-11-15] MEDS: cephALEXin 250 MG CAP PO SCH ×2 (02:35→08:28)
[2021-11-15 07:39] LABS: Basophils # (auto) 0.08 K/uL (0-0.2); Eosinophils # (auto) 0.22 K/uL (0-0.50); Eosinophils % (auto) 2.7 %; Hematocrit (blood only) 36.5 % (34.1-44.9); Hemoglobin 11.8 g/dl (12.0-16.0); Immature Granulocytes # (auto) 0.11 K/uL (0.00-0.02); Immature Granulocytes % (auto) 1.4 %; Lymphocytes # (auto) 1.11 K/uL (1.2-3.4); Lymphocytes % (auto) 13.8 %; Mean Corpuscular Hemoglobin 29.6 pg (25.0-34.0); Mean Corpuscular Hgb Conc 32.3 g/dL (32.0-36.0); Mean Corpuscular Volume 91.5 fL (80.0-100.0); Mean Platelet Volume 9.5 fL (9.4-12.3); Monocytes # (auto) 0.71 K/uL (0.24-0.82); Monocytes % (auto) 8.8 %; Neutrophils % (auto) 72.3 %; Platelet Count 230 K/uL (130-400); RDW Coefficient of Variation 15.5 % (11.5-14.5); RDW Standard Deviation 51.1 fL (36.4-46.3); Red Blood Count 3.99 M/uL (3.93-5.22); White Blood Count 8.03 K/ul (4.8-10.8)
--- NOTE | 2021-11-15 07:49 | Hospitalist Progress Note ---
Date of Service November 15, 2021 Assessment & Plan (1) CHF (congestive heart failure): Plan: Acute on chronic hypoxemic respiratory failure due to acute on chronic diastolic CHF Patient admitted with increased hypoxia requiring 15L Oxymask to maintain O2 saturations with baseline 4L requirement at home and noted to be in afib with rates 140s in the ER CXR with pulm edema and pleural effusions on admission BNP elevated to 2433 (1251 in June), Acute on chronic diastolic CHF 2/2 multi-factorial causes: worsening aortic stenosis, hypothyroidism with likely medication non-compliance at home in patient with suspected underlying cognitive decline, chronic prednisone use x 5 months, and afib with RVR Cardiology consulted-recs appreciated -diuresed with IV lasix bid for several days--> weight down, weaned back to baseline O2 4L, no further respiratory distress, much improved -[employer] and BUN rising and IV lasix stopped 11/12. [employer] improved to 1.1 -continue lasix 20mg po daily (home dose lasix 20mg prn leg swelling) -daily weights, I/Os, low sodium diet -continue to work on BP control, rate control--> restarted telmisartan 80mg daily, added diltiazem for rate control for Afib (dcd home amlodipine), continue Cardura,metoprolol, and may have to add on hydralazine (2) Atrial fibrillation: Plan: Patient with remote history of atrial fibrillation not on anticoagulation Presented with rapid Afib, rates 140s Having paroxysmal Afib for first day or so of admission, now remains in NSR ECHO with preserved EF, mod in 04/2021 -Continue metoprolol 100mg daily -started diltiazem 120mg daily for rate control and discontinued amlodipine -Monitor on telemetry -Keep Mag ~2, K~4 -Started eliquis 5mg BID (3) Hypoxia: Plan: Acute on chronic hypoxemic respiratory failure due to acute on chronic diastolic CHF typically maintained on 4L at home since having COVID last year Now acute portion resolved with IV lasix as above Repeat CXR 11/12 with improved aeration of lungs -continue home maintenance inhalers for COPD/asthma -continue O2 4LNC -albuterol prn -continue lasix po daily (4) Acute encephalopathy: Plan: with Delirium/Hallucinations Patient found with O2 off on night of 11/11 with POx dipping to 80s, replaced Was calling 911 and screaming as per RN reports -was given zyprexa 2.5mg IM x 2 doses -continues to have sundowning each evening but not as significant now With likely underlying cognitive impairment, needs formal neuropsych testing or Neurology evaluation for diagnosis Has some sundowning at home per daughter -did not do well with lorazepam in the past. Poor sleep schedule. With foul smelling urine 11/13--> checked UA and has UTI--> treat with keflex I also suspect worsening depression contributing to progressive cognitive impairment Daughter prefers to not give Seroquel on a scheduled basis. Daughter prefers benadryl be used for insomnia Is now off 1:1 for > 24 hrs -continue Seroquel prn agitation -promote good sleep/wake cycles -treat UTI with abx -increased sertraline to 150mg po hs for improved tx of depression (5) Anemia: Plan: Hgb in the 10-11 range, normocytic With significant iron deficiency here with transferrin saturation of 9% Giving IV Venofer as above 4/5 doses thus far 200mg B12 is normal, folate wnl Could also be related to hypothyroidism -on levothyroxine as above, recent adjustments We will need to carefully watch hemoglobin as starting on anticoagulation Hgb 10.9 --> 11.9 with diuresis and venofer replacements, no bleeding reported. fecal occult ordered no active bleeding. does have hx renal cell carcinoma s/p nephrectomy. -follow as outpt (6) COPD (chronic obstructive pulmonary disease): Plan: Patient with COPD/asthma. She follows with pulmonary and recently started on advair Had been on higher doses of steroids, up to 5mg BID, then decreased to 7.5mg daily and had been on that for about a month prior to titrating down, had 3 days 2.5mg left to complete taper (DONE 11/12) -chronic O2 -continue maintenance inhalers (7) Hypertension: Plan: BPs remain quite elevated again today -Continue metoprolol 100mg, diltiazem 120mg daily as above -D/c'd amlodipine when started on dilt -continue telmisartan -continue lasix po -continue Cardura bid -gave hydralazine prn today which was helpful -if BPs continue to remain uncontrolled, could either switch to Coreg from metoprolol as has better BP effect, vs starting po hydralazine (8) Hypothyroidism: Plan: Patient recently had her Synthroid dose increased to 150 mcg daily by PCP during October appointment from 137mcg for prior elevation to TSH 14 TSH decreased from prior at 7 but only about 4 weeks out-improving (9) Stage III chronic kidney disease: Plan: Of note, hx L radical and right partial nephrectomy for renal cell carcinoma Baseline Cr 1.5 per last note from Dr Johnson Avoid nephrotoxic agents/renal dose when able (10) Hyperlipidemia: Plan: Chronic. Stable. Continue atorvastatin 20 mg p.o. nightly (11) Parotid lymphadenopathy: Plan: noted hx of such, given prior renal cell carcinoma, they had PET scan in February which did not show any uptake per daughter, her and patient with swelling to neck since covid and unchanged did appreciate some enlarged lymph nodes on the left, if large enough could consider bx outpatient (12) Aortic stenosis: Plan: moderate on last recent ECHO monitor as outpt (13) UTI (urinary tract infection): Plan: as above continue keflex Ur cx with E. coli, awaiting sensitivities Plan Dispo- Longstanding problems at home with compliance/medications/follow-up and being angry/aggressive with daughter and accusations to sell her house. Patient lives alone, unsafe to return home in current condition however would benefit from short term rehab (accepted to [facility] when able) and once closer to d/c from [facility] can persue placement in [facility]. CM following Plan to dc to [facility] Monday if BPs improved and improved Admission and Anticipated Discharge Date Admission Date: November 09, 2021 Results & Data Results & Data ([facility]) Vital Signs (Past 12 Hours) Vital Signs Temp Pulse Pulse Resp BP Pulse Ox O2 Del Method 11/14/21 20:00 60 11/15/21 02:40 36.6 C 58 L 16 95 Nasal Cannula 11/14/21 20:37 36.7 C 60 18 163/80 H 92 Room Air 11/14/21 20:02 69 O2 Flow Rate 11/14/21 20:00 11/15/21 02:40 4 11/14/21 20:37 11/14/21 20:02 PG Care Time/CCT Total # of Minutes Spent Total Time Spent with Patient: Total time spent is greater than 50% in coordination of care (as documented) at patient's floor/unit and/or counseling patient: Coding Diagnoses CHF (congestive heart failure) I50.9 Atrial fibrillation I48.91 Hypoxia R09.02 Acute encephalopathy G93.40 Anemia D64.9 COPD (chronic obstructive pulmonary disease) J44.9 Hypertension I10 Hypothyroidism E03.9 Stage III chronic kidney disease N18.3 Hyperlipidemia E78.5 Parotid lymphadenopathy R59.0 Aortic stenosis I35.0 UTI (urinary tract infection) N39.0
[2021-11-15 08:08] LABS: BUN Creatinine Ratio 27.4 (10-20); Creatinine Clr Calc Pharmacy 25.2 ml/min; Est GFR (African American) 40.8 ml/min; Est GFR (Non-African American) 35.2 ml/min; Potassium 3.8 mmol/L (3.5-5.1)
[2021-11-15] MEDS: THIAMINE HCL 100 MG TAB PO SCH (08:27)
[2021-11-15] MEDS: FUROSEMIDE 20 MG TAB PO SCH (08:27)
[2021-11-15] MEDS: DOXAZosin MESYLATE 4 MG TAB PO SCH (08:27)
[2021-11-15] MEDS: dilTIAZem ER 120 MG CAPCR PO SCH (08:27)
[2021-11-15] MEDS: FAMOTIDINE 20 MG TAB PO SCH (08:27)
[2021-11-15] MEDS: METOPROLOL SUCC 50MG EXT REL TAB PO SCH (08:27)
[2021-11-15] MEDS: FLUTICASONE/VILANTEROL 100/25MCG 14 PUFFS/INHALER INH SCH (08:27)
[2021-11-15] MEDS: APIXABAN 5 MG TABLET PO SCH (08:28)
[2021-11-15] MEDS: TELMISARTAN 40 MG TAB PO SCH (08:28)
[2021-11-15] MEDS: LEVOTHYROXINE SODIUM 150 MCG TABLET PO SCH (08:28)
[2021-11-15] MEDS: ASPIRIN 81 MG ECTAB PO SCH (08:28)
[2021-11-15] MEDS ORDERED: hydrALAZINE HCL 25 MG TAB PO SCH (09:00)
--- NOTE | 2021-11-15 10:38 | Cardiology Progress Note ---
Date of Service November 15, 2021 Assessment & Plan (1) Atrial fibrillation: Plan: -remains normal sinus rhythm. -may be a factor in her recent decompensation. -continue metoprolol succinate and long-acting diltiazem for rate control. -continue Eliquis as her long-term anticoagulant. (2) Pulmonary edema: Plan: -may have been secondary to her new onset atrial fibrillation with a rapid ventricular response. -resolved with intravenous diuretics. -currently on Lasix 20 mg daily. (3) Aortic stenosis: Plan: -moderate in degree on echocardiogram March 2021. (4) Hypertension: Plan: -adequate control on current regimen. (5) Hypercholesterolemia: Plan: -continue atorvastatin. Admission and Anticipated Discharge Date Admission Date: November 09, 2021 Subjective The patient is resting comfortably bed complaints chest pain, dyspnea, or palpitations. Physical Exam Physical Exam: In general this is an obese white female seated in a chair without complaints. HEENT exam is negative. Neck reveals normal carotid upstrokes without bruits or transmitted murmurs. No jugular venous distension. There is no thyromegaly. Cardiovascular exam reveals a regular rhythm with a normal S1 and S2. A prominent S4 is noted. A 2/6 crescendo decrescendo systolic ejection murmur is noted at the base. Lungs are clear without rales, rhonchi, or wheezes. Abdomen is soft without bruits. Extremities reveal intact radial artery pulses bilaterally. There is trace peripheral edema Results & Data ([facility]) Vital Signs (Past 12 Hours) Vital Signs Temp Pulse Resp BP Pulse Ox O2 Del Method O2 Flow Rate 11/15/21 08:45 Nasal Cannula 4 11/15/21 07:57 36.6 C 61 20 196/76 H 94 Nasal Cannula 4 11/15/21 02:40 36.6 C 58 L 16 95 Nasal Cannula 4 Diagnostic Findings monitoring manager notes normal sinus rhythm. No evidence of atrial fibrillation. PG Care Time/CCT Total # of Minutes Spent Total Time Spent with Patient: Total time spent is greater than 50% in coordination of care (as documented) at patient's floor/unit and/or counseling patient: Coding Level of Care Code 99571 Subseq Hosp Care Lvl 3 Diagnoses Atrial fibrillation I48.91 Pulmonary edema J81.1 Aortic stenosis I35.0 Hypertension I10 Hypercholesterolemia E78.00
--- NOTE | 2021-11-15 10:56 | Discharge Summary ---
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 Patient presents with 1 to 2 days of progressive shortness of breath as well as confusion. Patient reports she has had some nausea and vomiting and feels short of breath at times. She has also had a cough productive for clear/white sputum, some mild facial swelling and lower extremity edema and possibly some worsening orthopnea. Patient's goal weight is 160 pounds with instruction to take Lasix 20 mg p.o. as needed for weight gain over 3 pounds in a day. She does report needing to take 2 doses of Lasix this week. Her weight did decrease in response to the Lasix. She denies fevers, chills, chest pain, abdominal pain. In the ER patient presented on her usual 4 L of oxygen by nasal cannula and was found to be hypoxic at 85%. She was transitioned to supplemental oxygen by oxime mask15 L with improvement in saturation to 92%. Patient has no additional complaints at this time. Feels that her breathing is improved. She did go into atrial fibrillation with RVR while in the ER with rates in the 140s and was administered 5 mg of IV diltiazem as well as 2 g of magnesium. Heart rate presently 124 bpm. ER course: Lasix 20 mg IV, magnesium 2 g IV, diltiazem 5 mg IV Admission Exam Per Admitting Provider General: Frail, elderly female patient resting comfortably, NAD, non-toxic in appearance, answers questions appropriate Skin: warm, dry, intact, no rashes or lesions HEENT: NC/AT, PERRL, EOMI, anicteric sclera, conjunctiva without injection, external ear normal to inspection and nontender, nares patent, moist mucus membranes, dentition intact, no oropharyngeal lesions, neck supple, trachea midline, no LAD, no thyromegaly, no JVD Heart: +S1/S2, irregularly irregular, tachycardic, 4/6 systolic ejection murmur across precordium with radiation to bilateral carotids Lungs: equal air entry bilaterally, + crackles to midlung field bilaterally, no wheezing Abd: +BS, soft, NT/ND, no masses/organomegaly/ascites Ext: warm, 2+ pulses in UE/LE bilaterally, no clubbing/cyanosis, trace to 1+ pitting edema bilateral lower extremities Neuro: nonfocal, speech intact, no facial droop, moving all extremities on command with equal strength 5/5 Principal Diagnosis Hypoxia, Afib, CHF, UTI Discharge Exam General: WD/WN female resting in bed, no acute distress, awake and alert to person/place/time this morning, reported good sleep no slurred speech or facial droop, no dystonic movements HEENT: head normocephalic, atraumatic, pupils equal in size, trachea midline without deviation, slightly dry mm +lymphadenopathy (reports chronic since covid), LEFT SIDED Resp: CTAB, diminished in the bases, on usual 4L NC CV: regular rhythm, bradycardic with rate 54bpm, 4/6 systolic murmur across precordium, no calf tenderness, no edema GI: +BS, soft, nontender : no eckert MSK/Neuro: no focal deficit, no slurred speech or facial droop, follows commands, no focal deficit Psych: alert to person/place/year, cooperative and calm Discharge Data Allergies Allergy/AdvReac Type Severity Reaction Status Date / Time bee venom protein (honey bee) Allergy Intermediate HIVES Verified 11/09/21 21:39 oxycodone Allergy Unknown Unknown Verified 11/09/21 21:39 Sulfa (Sulfonamide Allergy Unknown MOUTH Verified 11/09/21 21:39 Antibiotics) SWELLED/HIVES TO SULFA DRUGS, chemical hepatitis gabapentin Allergy Rash Verified 11/09/21 21:39 nitrofurantoin AdvReac Severe CAUSES Verified 11/09/21 21:39 HEPATITUS hydromorphone AdvReac Intermediate HALLUCINATI Verified 11/09/21 21:39 ONS Consultations 11/09/21 21:45 ED Decision to Admit Stat 11/10/21 08:51 Consult Cardiology Routine Ordered Studies Chest X-Ray 11/09/21 19:41 XR chest 1V portable HISTORY: 86 years-old Female Dyspnea acute shortness of breath with hypoxia COMPARISON: Chest radiograph 06/18/2021 TECHNIQUE: Portable AP view of the chest FINDINGS: Cardiac silhouette is enlarged. Atherosclerosis of the aorta. Bilateral mixed interstitial and alveolar opacities are noted. No pneumothorax. Trace right and small left pleural effusions. Degenerative changes of the shoulders and spine. 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 IMPRESSION: 1. Cardiomegaly with mixed interstitial and alveolar opacities suggestive of pulmonary edema versus multifocal pneumonia. 2. Trace right and small left pleural effusions. ACT 112: Negative or not required by law. The above report was generated using voice recognition software. It may contain grammatical, syntax or spelling errors. Electronically signed by: Ayush Partida M.D. 11/09/2021 8:37 PM Chest X-Ray 11/12/21 18:28 XR chest 1V portable HISTORY: 86 years-old Female f/u up acute shortness of breath COMPARISON: Chest radiograph 11/09/2021 TECHNIQUE: Portable AP view of the chest FINDINGS: Cardiac silhouette is enlarged. Mitral annular calcifications. No pneumothorax. Trace right and small left pleural effusions. There is mildly improved aeration of the lungs with persistent interstitial coarsening and left basilar predominant airspace densities. Degenerative changes of the shoulders and spine. Surgical clips of the abdomen. Partially imaged lumbar spinal fusion hardware. Chondroid lesion of the proximal left humerus. IMPRESSION: 1. Cardiomegaly with mildly improved aeration of the lungs. 2. Small left and trace right pleural effusions. ACT 112: Negative or not required by law. The above report was generated using voice recognition software. It may contain grammatical, syntax or spelling errors. Electronically signed by: Ayush Partida M.D. 11/12/2021 7:47 PM Hospital Course (1) CHF (congestive heart failure): Acute on chronic hypoxemic respiratory failure due to acute on chronic diastolic CHF Patient admitted with increased hypoxia requiring 15L Oxymask to maintain O2 saturations with baseline 4L requirement at home and noted to be in afib with rates 140s in the ER CXR with pulm edema and pleural effusions on admission BNP elevated to 2433 (1251 in June), Acute on chronic diastolic CHF 2/2 multi-factorial causes: worsening aortic stenosis, hypothyroidism with likely medication non-compliance at home in patient with suspected underlying cognitive decline, chronic prednisone use x 5 months, and afib with RVR Cardiology consulted-recs appreciated -diuresed with IV lasix bid for several days--> weight down, weaned back to baseline O2 4L, no further respiratory distress, much improved -Broommaker and BUN rising and IV lasix stopped 11/12. Broommaker improved to 1.1, bumped to 1.35 but stable after resuming telmisartan - continue lasix 20mg daily at rehab, consider decreasing to QOD vs prn now that she is off steroids and remains in NSR for several days (home dose 20mg prn) Continue daily weights, I&O and low sodium diet at rehab Initiated hydralazine 25mg BID prior to d/c for BP with systolic in 190s, improved to 163/80 prior to discharge after dose this morning and can further titrate at rehab Added diltiazem for rate control for Afib (dcd home amlodipine), continued Cardura/metoprolol at discharge and new rx sent. also start eliquis for afib and continued at dc (2) Atrial fibrillation: Patient with remote history of atrial fibrillation not on anticoagulation Presented with rapid Afib, rates 140s Having paroxysmal Afib for first day or so of admission, now remains in NSR ECHO with preserved EF, mod in 04/2021 -Continued metoprolol 100mg daily -started diltiazem 120mg daily for rate control and discontinued amlodipine -- new rx at d/c -Started eliquis 5mg BID has remained in NSR for several days Verified with DANA Simons that HR in system 132 prior to dc inaccurate and rates were 56/58bpm without recurrance of afib (3) Hypoxia: Acute on chronic hypoxemic respiratory failure due to acute on chronic diastolic CHF typically maintained on 4L at home since having COVID last year Now acute portion resolved with IV lasix as above Repeat CXR 11/12 with improved aeration of lungs -continued home maintenance inhalers for COPD/asthma, home O2 4L NC, albuterol prn, lasix daily as above (4) Acute encephalopathy: with Delirium/Hallucinations Patient found with O2 off on night of 11/11 with POx dipping to 80s, replaced Was calling 911 and screaming as per RN reports -was given zyprexa 2.5mg IM x 2 doses -continued to have sundowning each evening but not as significant now , much improved With likely underlying cognitive impairment, needs formal neuropsych testing or Neurology evaluation for diagnosis Has some sundowning at home per daughter -did not do well with lorazepam in the past. Poor sleep schedule. With foul smelling urine 11/13--> checked UA and has UTI--> treat with keflex -- complete course at [facility] Prior suspection for worsening depression contributing to progressive cognitive impairment given just put into [facility] in past 2 years --> increased sertaline to 150mg HS Stable, alert/oriented, sleeping and pleasant/cooperative during exam Off 1:1 >24 hours, seroquel continued prn however has not needed continued melatonin 3mg HS, benadryl 25mg HS per discussion with daughter as she DID NOT want any antipsychotics -- to continue at [facility], seroquel reserved for severe agitation (5) Anemia: Hgb in the 10-11 range, normocytic With significant iron deficiency here with transferrin saturation of 9% Venofer IV while inpatient, completed B12/folate wnl Hypothyroidism --> on synthroid, recent adjustments and repeat TFT in 4 weeks with PCP/adjustment as needed Hgb remained stable with diuresis, no fecal occult able to be obtained no active bleeding observed, patient with hx renal cell ca s/p nephrectomy follow outpatient as d/c on eliquis for afib as above (6) COPD (chronic obstructive pulmonary disease): Patient with COPD/asthma. She follows with pulmonary and recently started on advair Had been on higher doses of steroids, up to 5mg BID, then decreased to 7.5mg daily and had been on that for about a month prior to titrating down, had 3 days 2.5mg left to complete taper (DONE 11/12) -chronic O2, stable on home use 4L -continued maintenance inhalers (7) Hypertension: BPs remained quite elevated despite additional of dilatiazem 120mg for rate control in addition to her usual telmisartan and metoprolol which are continued Difficult given HR when in NSR is jemima, didn't want to increase BB or CCB, could consider switch from metoprolol to coreg for BP effect, but started hydralazine 25mg, scheduled BID with improvement and BP 163/80 prior to discharge and can increase as needed/switch BB in continued monitoring Also continuing lasix 20mg daily which was previously prn Continue to monitor at rehab/increase as needed (8) Hypothyroidism: Patient recently had her Synthroid dose increased to 150 mcg daily by PCP during October appointment from 137mcg for prior elevation to TSH 14 TSH decreased from prior at 7 but only about 4 weeks out-improving repeat TFT in 4 weeks, adjust if still elevated (9) Stage III chronic kidney disease: Of note, hx L radical and right partial nephrectomy for renal cell carcinoma Baseline Cr 1.5 per last note from Dr Johnson, repeat Cr stable 1.35 after resumin telmisartan and had been on daily lasix, titrated from 20mg IV BID to 20mg po daily at d/c recommend repeating BMP at [facility] in next couple days to ensure stable (10) Hyperlipidemia: Chronic. Stable. Continued atorvastatin 20 mg p.o. nightly (11) Parotid lymphadenopathy: noted hx of such, given prior renal cell carcinoma, they had PET scan in February which did not show any uptake per daughter, her and patient with swelling to neck since covid and unchanged did appreciate some enlarged lymph nodes on the left, if large enough could consider bx outpatient --> rec f/u PCP (12) Aortic stenosis: moderate on last recent ECHO monitor as outpt, follow up with Dr Cruz (patient reports he saw her prior to d/c) for continued monitoring repeat echo not ordered while inpatient, however do suspect worsening. No angina/syncope reported, however will need close monitoring of volume status/fol low up (13) UTI (urinary tract infection): as above continue keflex Ur cx with E. coli --> pansensitive, rx for keflex to continue treatment at [facility] Plan discharged to [facility], daughter can look into [facility] closer to d/c from rehab Total Time Total Time Spent Total Time Spent (In Minutes): 70 Discharge Plan Discharge Items Patient Disposition: Transfer Inpatient Rehab Fac Reason For Visit: SOB Discharge Diagnosis: Hypoxia, Atrial Fibrillation, CHF, Hypothryoidism, UTI Goals: You have been hospitalized for an acute medical problem. During your stay at [facility], we have made an effort to correct the problem that brought you to the hospital while keeping you as comfortable as possible. Medications were used to bring your condition under control and your discharge instructions will include directions for any medications you should take after leaving the hospital. Please make sure you see your Primary Care Provider as part of your follow up plan. Activity: Resume your previous activity Non-emergency contact: Primary Care Provider and Molding Room Supervisor Call non-emergency contact if: you have any medication questions, your symptoms worsen and you have a fever Follow-up/Referrals: Kwabena Cruz MD [Physician] - (2 weeks) Amador Coleman MD [Primary Care Provider] - Diet: Heart Healthy and Low Sodium (2gm) Addtl Attending Provider Instructions: You have been hospitalized with low oxygen. You were found to be in atrial fibrillation with fast rate, and your narrowed aortic valve combined could have put you into worsening heart failure. We used diuretics for volume overload with Lasix and had switched your amlodipine to diltiazem for better rate control and you will continue Lasix 20mg daily as well as diltiazem 120mg daily. We have started you on Eliquis for a blood thinner and this will be continued 5mg by mouth twice daily. We have also added hydralazine 25mg by mouth twice daily to help with blood pressure control. You should continue to monitor this at [facility] and they can increase this as needed. Your thyroid level was still elevated and you should continue the 150mcg daily dose of Synthroid and have your PCP check your labs in 3-4 weeks in follow up. We replaced your iron levels while in the hospital and your hemoglobin has been stable. Monitor for any bleeding now that you will be on Eliquis. Your urine was initially without infection but on repeat showed ecoli and you were started on keflex and should continue course to complete 7 days. For element of , we have ordered melatonin at night for sleep but there is also Seroquel 12.5mg as needed if you have continued issues however Benadryl 25mg at night daily seems to have been effective and this has been continued. We have increased your Zoloft to 150mg daily for depression. I have also started on B1 vitamin twice daily empirically given underlying dementia reported as this can cause confusion. Labs typically take a week or two for results and you should continue this until this is back. You were evaluated by therapy and recommended for rehab. Would recommend checking kidney function in the next couple of days to ensure this is stable. You should follow up with your PCP in the next 7-10 days to monitor your progress. Please follow up with Dr Cruz in the next month for continued monitoring given your aortic stenosis is likely worsened and this needs close monitoring. Addtl Insurance Verifier Provider Instructions: Medication Instructions: Your condition is typically treated with an anticoagulant. Anticoagulants will thin your blood to help prevent new clots. * You should take her medication exactly as directed. * Never skip a dose. * Never take a double dose. If you miss a dose, take it as soon as you remember. Call your Primary Care doctor if you experience any of the following: * Swelling or Pain in your leg * Sudden, continuous pain deep in a muscle * Pain that worsens when you are active or when you stand still for a long time * Chest Pain * Sudden Shortness of Breath * Rapid or pounding heart beat * Fainting * Dizziness * Cough with blood or bloody sputum * Sweating more than normal * Bruises * Heavy or uncontrolled bleeding * Blood in your urine, stool or vomit * Black or tarry stools Caring for Your Self at Home: * Avoid sitting, standing or lying down for long periods without moving your legs and feet * When traveling by car, stop to get out and move around at least once every 3 hours * On long airplane, train or bus rides, get up and move around when possible * If you can't get up, wiggle your toes and tighten your calves to keep your blood moving Follow Up: It is important for you to keep your follow up appointments with your medical provider. Pending Studies at Discharge: Yes Studies:: B1 level Stand-Alone Forms: My [facility] Skilled Items Patient informed of condition?: Yes DNR: Yes Discharge Level of Care: Acute rehab Communicable Disease: No Discharge Prognosis: Improving Lines: None Urinary Catheter: No Medications and DC Order Prescriptions: New cephalexin 250 mg Capsule 250 mg PO Q8H 5 Days Qty: 15 0RF quetiapine 25 mg Tablet 12.5 mg PO HS PRN (Reason: severe agitation) Qty: 10 0RF sertraline 100 mg Tablet 150 mg PO PM Qty: 45 0RF hydralazine 25 mg Tablet 25 mg PO BID Qty: 60 0RF diltiazem HCl [Taztia XT] 120 mg Capsule,Extended Release 24 Hr 120 mg PO QAM Qty: 30 0RF diphenhydramine HCl [Benadryl] 25 mg Capsule 25 mg PO HS Qty: 30 0RF Eliquis 5 mg Tablet 5 mg PO BID Qty: 60 3RF thiamine HCl (vitamin B1) 100 mg Tablet 100 mg PO BID Qty: 60 0RF melatonin 3 mg Tablet 3 mg PO HS Qty: 30 0RF furosemide 20 mg Tablet 20 mg PO QAM Qty: 30 0RF Continued atorvastatin 20 mg tablet 20 mg PO HS Qty: 90 3RF metoprolol succinate 100 mg tablet extended release 24 hr 100 mg PO QAM Qty: 90 3RF fluticasone propion-salmeterol [Advair Diskus] 100-50 mcg/dose blister with device 1 inh inhalation BID Qty: 60 3RF (DME) Oxygen Home Liters Per Minute See Dose Instructions .ROUTE .MEDSUPPLY Qty: 1 0RF Dose Instruction: As directed Rx Instructions: Portable concentrator due to arthritis and difficulty with changing the regulators. Also chronic disc disease and back pain make carrying current tanks unmanageable. doxazosin [Cardura] 4 mg tablet 4 mg PO Q12 Qty: 180 3RF telmisartan 80 mg tablet 80 mg PO DAILY Qty: 90 3RF fluocinonide 0.05 % cream 1 applic topical BID Qty: 60 0RF Rx Instructions: Apply to areas of the legs twice daily x 2 weeks as directed. levothyroxine 150 mcg tablet 150 mcg PO DAILYBB Qty: 90 3RF (DME) Flutter Valve Device See Rx Instructions .ROUTE .MEDSUPPLY Qty: 1 0RF Rx Instructions: Use 2-3 times daily or as needed. Lifetime need. cholecalciferol (vitamin D3) [Vitamin D3] 1,000 unit Tablet 1,000 unit PO QAM docusate sodium 100 mg capsule 300 mg PO QPM aspirin 81 mg Tablet,Delayed Release (Dr/Ec) 81 mg PO QAM omega 2-nlj-hhi-fish oil [Fish Oil] 1,000 mg (120 mg-180 mg) Capsule 1 cap PO QAM ascorbic acid (vitamin C) 500 mg Capsule 500 mg PO QAM (DME) Oxygen Home Liters Per Minute See Rx Instructions .Route Qty: 4 0RF Rx Instructions: As directed cranberry 400 mg Capsule 400 mg PO DAILY Rx Instructions: administer with a meal albuterol sulfate [Ventolin HFA] 90 mcg/actuation HFA aerosol inhaler 2 inh inhalation Q4H PRN (Reason: Wheezing) Rx Instructions: USE 2 INHALATIONS EVERY 4 HOURS NEEDED vitamin E (dl, acetate) 180 mg (400 unit) Capsule 360 mg PO DAILY vitamin A-vitamin C-vit E-min Tablet 1 tab PO BID Discontinued furosemide [Lasix] 20 mg tablet 20 mg PO QAM PRN (Reason: weight gain) Qty: 270 1RF sertraline 100 mg tablet 100 mg PO PM Qty: 90 3RF amlodipine 5 mg tablet 5 mg PO QAM Qty: 90 3RF prednisone 5 mg tablet 2.5 mg PO DAILY Rx Instructions: 3 more days @ 2.5mg then done. Discharge Orders: Discharge Order (Routine); Ordered 11/15/21 Ordered By: Nellie Pires Admission Data Admit Date/Time: 11/09/21 22:09 Attending Provider: Marta Kruse Admit Provider: Francine Zhao Primary Care Provider: Amador Coleman Other Providers: Francine Zhao ; Amador Prabhakar ; [facility] Other Interventions: Discharge Summary Assessment (RN) Last Done: 11/15/21 11:27 Coding Level of Care Code D/C DAY MANAGEMENT >30 MINS Diagnoses CHF (congestive heart failure) I50.9 Atrial fibrillation I48.91 Hypoxia R09.02 Acute encephalopathy G93.40 Anemia D64.9 COPD (chronic obstructive pulmonary disease) J44.9 Hypertension I10 Hypothyroidism E03.9 Stage III chronic kidney disease N18.3 Hyperlipidemia E78.5 Parotid lymphadenopathy R59.0 Aortic stenosis I35.0 UTI (urinary tract infection) N39.0
== END 2021-11-15 12:55 | DRG 291 ==
LOC: ED 18:41 → 4W 22:09 → SUATTDRO 22:09 → 4W 11-10 00:28 → 2N 11-10 11:40

== ENCOUNTER 2022-12-19 10:45 | Inpatient (IN) ==
[2022-12-19] MEDS ORDERED: SODIUM CHLORIDE 0.9% 1,000 ML IV ONE (10:56)
[2022-12-19] MEDS ORDERED: MECLIZINE HCL 25 MG TAB PO STA (10:56)
--- NOTE | 2022-12-19 11:02 | Emergency Department Note ---
Impression & Plan Dizziness, Pneumonia ED Provider Note NAME: SIDDHARTH HANSEN AGE: 87 SEX: F : 1935 ARRIVES VIA: Ambulance INFORMANT: Patient ED PROVIDER(S): Ronaldo Jackson DO CHIEF COMPLAINT:dizzy HPI: Patient is an 87-year-old female who presents to the ER for dizziness. She notes she woke up this morning was doing fine. She took a nap and when she got back up she moved her head and she got dizzy. It is only present with movement of her head. Denies any weakness or numbness in the arms or legs. No change in vision. No chest pain or shortness of breath. No dysuria, urgency, or frequency. No other exacerbating or remitting factors. She notes that the cough and congestion has been present for the past 3 days. No fevers. ADDITIONAL HISTORY OBTAINED: Per HPI Chronic Medical/Social Conditions Affecting Care: Per HPI PAST MEDICAL HISTORY:See Below PAST SURGICAL HISTORY:See Below FAMILY HISTORY:See Below SOCIAL HISTORY:See Below HOME MEDICATIONS:See Below ALLERGIES:See Below VITALS:See Below PHYSICAL EXAMINATION: GENERAL: Sitting up in bed, alert, well appearing, well nourished, no distress, non-toxic intermittent cough EYE EXAM: normal conjunctiva. PERRL and EOM's grossly intact. OROPHARYNX: mucous membranes are moist NECK: supple, no nuchal rigidity, no adenopathy, non-tender LUNGS: Clear to auscultation. Normal chest wall mechanics HEART: +ASHLEIGH, S1 normal and S2 normal ABDOMEN: abdomen soft, non-tender, normo-active bowel sounds, no masses, no rebound or guarding. UPPER EXTREMITIES: upper extremities are grossly normal. LOWER EXTREMITIES: No pitting edema. NEURO EXAM: Normal sensorium, cranial nerves II-XII intact, normal speech, no weakness of arms, no weakness of legs. No drift or finger-nose but difficult to perform with right upper extremity due to shoulder issues MEDICAL DECISION MAKING: Patient is an 87-year-old female who presents the ER for vertigo. IV was established blood work was obtained. External records reviewed as described below. Labs show a mild leukocytosis of 13,000. No significant anemia. BMP along with LFTs bilirubin was unremarkable. Troponin was slightly elevated although lower than her baseline. Lipase was normal. Chest x-ray with atelectasis versus pneumonia. She was covered with Rocephin and azithromycin. Attempted to ambulate her but she could not even roll over without getting dizzy and feeling unstable and sick to the stomach. She was given Antivert initially. She was then given a dose of Ativan. Chronically on 4 to 5 L nasal cannula. Updated bedside discussed with the hospitalist for further evaluation management treatment. CT angio of the head and neck was negative. I do favor that this is likely peripheral vertigo in nature but as she is unable to ambulate did discuss with Dr. hampton. External Records Reviewed: Seen and evaluated by orthopedics Dr. Mckeon Consults/Care Managements Discussions: Per [facility] Triage Nursing notes reviewed. Limited review of prior medical records performed Vital Signs: reviewed and remarkable for no significant abnormalities Differential diagnosis: Differential diagnosis includes etiologies such as benign positional vertigo, dehydration, hypovolemia, anemia, tumor, infection, hypoglycemia, electrolyte abnormalities, cardiac sources, intracerebral event, toxicologic, neurological, as well as others were entertained. ER treatment provided: See below Diagnostics interpreted by me include EKG and cardiac monitoring as listed below: -Cardiac Monitoring: An order was placed for continuous cardiac monitoring. The monitor shows a rate of 82 with sinus rhythm. -ECG: Sinus rhythm rate 76 Left axis T wave version in the high lateral leads QTc 447 -Laboratory studies:Interpreted by me as stated above in MDM and shown below. Imaging studies: Xrays: As interpreted by me: Portable AP upright 1 view of the chest shows questionable right lower lobe infiltrate CTs show: CT angio of the head and neck was negative Procedures:none Critical Care: None Past Med/Surg History Medical History Acute and chronic respiratory failure with hypoxia Acute on chronic diastolic heart failure Anemia Anxiety Asthma Asymptomatic postmenopausal status Atrial fibrillation Breast lump Carpal tunnel syndrome of left wrist Chronic kidney disease Degenerative disc disease Depression Dermatitis Dyspnea Fatigue Hypercholesterolemia Hyperlipidemia Hypertension Hypothyroidism Hypoxia Hypoxia 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) Liver enzyme elevation Macular degeneration Mitral insufficiency Noncompliance Obesity Osteoarthritis Paroxysmal SVT (supraventricular tachycardia) Pulmonary edema Renal cell carcinoma Sinus bradycardia Vertigo Weakness Yeast dermatitis Surgical History Fusion of spine H/O left radical nephrectomy H/O partial nephrectomy History of anesthesia reaction History of bladder surgery History of cardiac cath History of carpal tunnel release History of cataract surgery History of colonoscopy History of esophagogastroduodenoscopy (EGD) History of hysterectomy History of thyroidectomy, subtotal History of tooth extraction History of total knee replacement Family History Brother History of colon resection Colorectal cancer Diabetes Prostate cancer Sister Breast cancer Mother Diabetes Coronary heart disease Father Myocardial infarction Denies family history of Ovarian cancer Social History Smoking Status: Never smoker Second Hand Exposure: No; Do You Dip or Chew Tobacco: No; Hx Alcohol Use: No Hx Substance Use: No Preferred Language: Nigerien Communication Ability: Effective Visual Impairment: No Limitations Hearing Ability: Normal Telephone Maintainer Required: No Beliefs That Will Affect Care: None Current Living Situation: Alone Current Living Situation Comment: spouse lives in a home current occupational status: retired 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 How many Children do You have: 2 Feels Safe at Home: Yes Childhood Exposure to Second-Hand Smoke: No Diet: low salt caffeine: Yes (soda rarley) Dental Care, Regularly: No Physical Activity Frequency: Daily Seatbelt Use: always Sunscreen Use: Yes Assistive Devices: Walker Allergies Allergies Allergy/AdvReac Type Severity Reaction Status Date / Time bee venom protein (honey bee) Allergy Intermediate HIVES Verified 01/20/22 13:29 oxycodone Allergy Unknown Unknown Verified 01/20/22 13:29 Sulfa (Sulfonamide Allergy Unknown MOUTH Verified 01/20/22 13:29 Antibiotics) SWELLED/HIVES TO SULFA DRUGS, chemical hepatitis gabapentin Allergy Rash Verified 01/20/22 13:29 nitrofurantoin AdvReac Severe CAUSES Verified 01/20/22 13:29 HEPATITUS hydromorphone AdvReac Intermediate HALLUCINATI Verified 01/20/22 13:29 ONS Home Meds Home Medications Medication Instructions Recorded Confirmed ascorbic acid (vitamin C) 500 mg 500 mg PO QAM 02/08/18 12/19/22 capsule aspirin 81 mg tablet,delayed 81 mg PO QAM 02/08/18 12/19/22 release cholecalciferol (vitamin D3) 25 1,000 unit PO QAM 02/08/18 12/19/22 mcg (1,000 unit) tablet (Vitamin D3) omega 4-rwf-dkn-fish oil 1,000 mg 1 cap PO QAM 02/08/18 12/19/22 (120 mg-180 mg) capsule (Fish Oil) albuterol sulfate 90 mcg/actuation 2 inh inhalation Q4H PRN Wheezing 06/08/21 12/19/22 aerosol inhaler (Ventolin HFA) vitamin E (dl, acetate) 180 mg 360 mg PO DAILY 06/18/21 12/19/22 (400 unit) capsule docusate sodium 100 mg capsule 100 mg PO QPM 06/22/21 12/19/22 cranberry 400 mg capsule 400 mg PO DAILY 11/09/21 12/19/22 acetaminophen 500 mg tablet 500 mg PO Q4H PRN pain/fever 12/02/21 12/19/22 apixaban 5 mg tablet (Eliquis) 2.5 mg PO BID 12/02/21 12/19/22 losartan 25 mg tablet 50 mg PO DAILY 12/02/21 12/19/22 ondansetron HCl 4 mg tablet 4 mg PO Q6H PRN N/V 12/02/21 12/19/22 vit C,E,Zn,Ph-joohk0-ejd-zeax 1 cap PO BID 12/02/21 12/19/22 [PreserVision AREDS-2 (omega-3)] amlodipine 5 mg tablet 5 mg PO BID 12/19/22 12/19/22 amoxicillin 250 mg capsule 1,500 mg PO .1H BEFORE PROCEDURE 12/19/22 12/19/22 buspirone 5 mg tablet 5 mg PO TID 12/19/22 12/19/22 clotrimazole 1 % topical cream 1 applic topical DAILY rash 12/19/22 12/19/22 (Antifungal (clotrimazole)) diclofenac sodium 1 % topical gel 1 inch topical TID 12/19/22 12/19/22 docusate sodium 100 mg capsule 100 mg PO BID PRN Constipation 12/19/22 12/19/22 hydralazine 10 mg tablet 10 mg PO TID 12/19/22 12/19/22 levothyroxine 150 mcg tablet 125 mcg PO DAILYBB 12/19/22 12/19/22 lidocaine 4 % topical patch 1 patch topical DAILY PRN Other 12/19/22 12/19/22 meclizine 25 mg chewable tablet 25 mg PO BID PRN Dizziness 12/19/22 12/19/22 peg 400-propylene glycol 0.4 %-0.3 1 drp ophthalmic (eye) DAILY PRN 12/19/22 12/19/22 % eye drops (Systane (propylene Dry Eye(S) glycol)) Previous Rx's Medication Instructions Recorded Oxygen Home #1 ea 10/19/18 Flutter Valve #1 ea 02/03/21 Oxygen Home #4 L 05/18/21 metoprolol succinate 100 mg 100 mg PO QAM #90 tabs 08/11/21 tablet,extended release 24 hr fluticasone 100 mcg-salmeterol 50 1 inh inhalation BID #60 ea 10/04/21 mcg/dose blistr powdr for inhalation (Advair Diskus) diphenhydramine HCl 25 mg capsule 25 mg PO HS #30 caps 11/15/21 (Benadryl) melatonin 3 mg tablet 3 mg PO HS #30 tabs 11/15/21 thiamine HCl (vitamin B1) 100 mg 100 mg PO BID #60 tabs 11/15/21 tablet furosemide 20 mg tablet 20 mg PO QAM #90 tabs 01/14/22 atorvastatin 20 mg tablet 20 mg PO HS #90 tabs 01/18/22 sertraline 100 mg tablet 150 mg PO PM #135 tabs 05/05/22 Results & Data (ED) Vital Signs Vital Signs - 24 hr 12/19/22 11:04 12/19/22 10:55 12/19/22 10:55 Temperature 36.7 C Temperature Source Oral Pulse Rate 73 73 72 Pulse Rate from SpO2 Sensor Respiratory Rate 18 18 Blood Pressure 188/87 H Blood Pressure Mean 120 Pulse Oximetry 90 93 Oxygen Delivery Method Nasal Cannula Nasal Cannula Oxygen Flow Rate 4 4 Sepsis Recent Fever Within 48 Hours No Sepsis New/Unexplained Change in Mental Status No Sepsis Action Taken by Nursing No Action Required Oxygen Flow Rate - Titration Pulse Oximetry Post Tiitration 12/19/22 11:32 12/19/22 11:16 12/19/22 11:16 Temperature Temperature Source Pulse Rate 72 Pulse Rate from SpO2 Sensor 72 Respiratory Rate 23 Blood Pressure 188/87 H Blood Pressure Mean 148 Pulse Oximetry 90 92 Oxygen Delivery Method Nasal Cannula Oxygen Flow Rate 4 Sepsis Recent Fever Within 48 Hours Sepsis New/Unexplained Change in Mental Status Sepsis Action Taken by Nursing Oxygen Flow Rate - Titration 5 Pulse Oximetry Post Tiitration 93 12/19/22 12:00 12/19/22 12:00 12/19/22 13:00 Temperature Temperature Source Pulse Rate 66 Pulse Rate from SpO2 Sensor 65 Respiratory Rate 21 Blood Pressure 178/88 H 195/101 H Blood Pressure Mean 110 128 Pulse Oximetry 93 Oxygen Delivery Method Oxygen Flow Rate Sepsis Recent Fever Within 48 Hours Sepsis New/Unexplained Change in Mental Status Sepsis Action Taken by Nursing Oxygen Flow Rate - Titration Pulse Oximetry Post Tiitration 12/19/22 13:00 Temperature Temperature Source Pulse Rate 67 Pulse Rate from SpO2 Sensor 67 Respiratory Rate 23 Blood Pressure Blood Pressure Mean Pulse Oximetry 91 Oxygen Delivery Method Oxygen Flow Rate Sepsis Recent Fever Within 48 Hours Sepsis New/Unexplained Change in Mental Status Sepsis Action Taken by Nursing Oxygen Flow Rate - Titration Pulse Oximetry Post Tiitration Laboratory Data 12/19/22 11:16 12/19/22 11:16 Lab Results 12/19/22 12/19/22 Range/Units 11:16 11:16 WBC 12.94 H (4.8-10.8) K/ul RBC 4.49 (4.20-5.40) M/uL Hgb 12.6 (12.0-16.0) g/dl Hct 39.9 (37.0-47.0) % MCV 88.9 (80.0-100.0) fL MCH 28.1 (25.0-34.0) pg MCHC 31.6 L (32.0-36.0) g/dL RDW Std Deviation 48.8 H (36.4-46.3) fL RDW Coeff of Yanelis 15.0 H (11.5-14.5) % Plt Count 227 (130-400) K/uL MPV 9.3 L (9.4-12.4) fL Immature Gran % (Auto) 0.5 % Neut % (Auto) 78.3 % Lymph % (Auto) 10.9 % Mora % (Auto) 7.3 % Eos % (Auto) 2.4 % Baso % (Auto) 0.6 % Neut # (Auto) 10.13 H (1.40-6.50) K/uL Lymph # (Auto) 1.41 (1.20-3.40) K/uL Mora # (Auto) 0.94 H (0.11-0.59) K/uL Eos # (Auto) 0.31 (0.00-0.50) K/uL Baso # (Auto) 0.08 (0.00-0.20) K/uL Immature Gran # (Auto) 0.07 (0.01-0.20) K/uL Sodium 139 (136-145) mmol/L Potassium 4.0 (3.5-5.1) mmol/L Chloride 102 (98-107) mmol/L Carbon Dioxide 30 (21-32) mmol/L Anion Gap 7 (3-11) BUN 21 (6-23) mg/dl Creatinine 1.03 (0.6-1.2) mg/dl Est Cr Clr Drug Dosing 32.7 ml/min Est GFR ( Amer) 56.2 ml/min Est GFR (Non-Af Amer) 48.5 ml/min BUN/Creatinine Ratio 20.4 H (10-20) Glucose 115 H (70-99(Fasting)) mg/dl Calcium 9.6 (8.6-10.3) mg/dl Total Bilirubin 0.8 (0.2-1.0) mg/dl AST 16 (13-39) U/L ALT 12 (7-52) U/L Alkaline Phosphatase 76 (34-104) U/L Troponin I High Sens 18.0 H (0-14) pg/ml Total Protein 6.8 (6.0-8.3) gm/dl Albumin 4.1 (3.4-5.0) gm/dl Globulin 2.7 (2.5-4.0) gm/dl Albumin/Globulin Ratio 1.5 (0.9-2) Lipase 23 (11-82) U/L Administered Medications Discontinued Medications Azithromycin (Azithromycin 250 Mg Tab) 500 mg PO NOW ONE Stop: 12/19/22 14:08 Last Admin: 12/19/22 14:29 Dose: 500 mg Documented By: KELSI Sodium Chloride (Nss) 1,000 mls @ 999 mls/hr IV .Q1H1M ONE Stop: 12/19/22 11:56 Last Infusion: 12/19/22 13:50 Dose: 0 mls/hr Documented By: Admin: 12/19/22 11:19 Dose: 999 mls/hr Documented By: KELSI Ceftriaxone Sodium (Rocephin) 2,000 mg in 50 mls @ 100 mls/hr IV NOW STA Stop: 12/19/22 14:36 Last Admin: 12/19/22 14:29 Dose: 100 mls/hr Documented By: KELSI Ioversol (Optiray 320 500ml) 114 ml IV ONCE ONE Stop: 12/19/22 12:51 Last Admin: 12/19/22 12:44 Dose: 114 ml Documented By: DAVID Lorazepam (Lorazepam 2 Mg/1 Ml Vial) 0.25 mg IV NOW STA Stop: 12/19/22 13:57 Last Admin: 12/19/22 14:21 Dose: 0.25 mg Documented By: KELSI Meclizine HCl (Meclizine Hcl 25 Mg Tab) 25 mg PO NOW STA Stop: 12/19/22 10:57 Last Admin: 12/19/22 11:22 Dose: 25 mg Documented By: KELSI Imaging Data Radiologist's Impression: Chest X-Ray 12/19/22 10:55 XR chest 1V portable CLINICAL HISTORY: Chest pain, nonspecific TECHNIQUE: Single frontal radiograph of the chest was obtained. Comparison: Comparison is made to chest radiograph 11/12/2021 and CTA chest 06/08/2021 FINDINGS: No lines and tubes are seen. Cardiomegaly is noted. The aortic arch is calcified. Prominence and cephalization of the vasculature is seen. Right lower lung airspace opacities are seen. No evidence of pleural effusion or pneumothorax. IMPRESSION: 1. Cardiomegaly and mild pulmonary edema. 2. Right lower lung airspace opacity may represent atelectasis, pneumonia, and/or aspiration. ACT 112: Negative or not required by law. Electronically signed by: Mike Cassidy M.D. 12/19/2022 12:02 PM Head CTA 12/19/22 10:55 CT angio head wo/w CLINICAL HISTORY: 87 years-old Female with dizzy. Acute dizziness COMPARISON STUDY: 03/21/2022 TECHNIQUE: Unenhanced axial CT scan of the brain is performed. Subsequently, following the IV administration of 114 cc of Optiray, CT angiogram of the brain was performed from the skull base to the vertex. Images are reviewed in the axial, sagittal, and coronal planes. 3-D MIPS images are created and assessed. IV contrast was administered without complication. All measurements were obtained according to NASCET criteria. A dose lowering technique was utilized adhering to the principles of ALARA. CT DOSE: 875.82 mGy.cm FINDINGS: CT BRAIN: There is no acute intracranial hemorrhage, midline shift, hydrocephalus, intra- axial mass, territorial ischemia or abnormal extra-axial collections. No abnormal intra-axial or extra-axial enhancement. 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 Involutional changes with chronic microvascular ischemic disease. Mastoid air cells and middle ear cavities are clear. No calvarial fracture. Moderate mucosal thickeni ng of the frontal and ethmoid sinuses. Small right maxillary sinus air-fluid level. Prior bilateral lens repair. Streak artifact from dental amalgam hardware limits the study. CT ANGIOGRAM OF THE BRAIN: Prominent atherosclerosis of the cavernous and clinoid segments of the internal carotid arteries without high-grade stenosis. The bilateral anterior and middle cerebral arteries are also patent. The vertebrobasilar system and posterior cerebral arteries are widely patent. There is no aneurysm, high-grade stenosis, or proximal branch occlusion identified. Dural sinuses appear patent. IMPRESSION: 1. No acute intracranial abnormality. 2. Unremarkable CTA of the head. ACT 112: Negative or not required by law. The above report was generated using voice recognition software. It may contain grammatical, syntax or spelling errors. Electronically signed by: Ayush Partida M.D. 12/19/2022 1:07 PM Discharge Plan Visit Data Chief Complaint: Dizziness Stated Complaint: DIZZINESS ED Provider: Ronaldo Jackson Discharge Problem: Dizziness, Pneumonia Forms Stand Alone Forms: My [facility] Prescriptions Prescriptions: No Action metoprolol succinate 100 mg tablet extended release 24 hr 100 mg PO QAM Qty: 90 3RF fluticasone propion-salmeterol [Advair Diskus] 100-50 mcg/dose blister with device 1 inh inhalation BID Qty: 60 3RF furosemide 20 mg tablet 20 mg PO QAM Qty: 90 3RF Rx Instructions: NEEDED FOR WEIGHT GAIN OF 3LBS/24HRS OR 5LBS/WEEK atorvastatin 20 mg tablet 20 mg PO HS Qty: 90 3RF sertraline 100 mg tablet 150 mg PO PM Qty: 135 3RF (DME) Oxygen Home Liters Per Minute See Dose Instructions .ROUTE .MEDSUPPLY Qty: 1 0RF Dose Instruction: As directed Rx Instructions: Portable concentrator due to arthritis and difficulty with changing the regulators. Also chronic disc disease and back pain make carrying current tanks unmanageable. (DME) Flutter Valve Device See Rx Instructions .ROUTE .MEDSUPPLY Qty: 1 0RF Rx Instructions: Use 2-3 times daily or as needed. Lifetime need. acetaminophen 500 mg tablet 500 mg PO Q4H MDD 3gm/24h PRN (Reason: pain/fever) ondansetron HCl 4 mg tablet 4 mg PO Q6H PRN (Reason: N/V) losartan 25 mg tablet 50 mg PO DAILY Eliquis 5 mg tablet 2.5 mg PO BID vit C,E,Zn,Fr-bzceg1-osa-zeax [PreserVision AREDS-2 (omega-3)] 1 cap PO BID cholecalciferol (vitamin D3) [Vitamin D3] 1,000 unit Tablet 1,000 unit PO QAM docusate sodium 100 mg capsule 100 mg PO QPM aspirin 81 mg Tablet,Delayed Release (Dr/Ec) 81 mg PO QAM omega 9-ksl-vkn-fish oil [Fish Oil] 1,000 mg (120 mg-180 mg) Capsule 1 cap PO QAM ascorbic acid (vitamin C) 500 mg Capsule 500 mg PO QAM (DME) Oxygen Home Liters Per Minute See Rx Instructions .Route Qty: 4 0RF Rx Instructions: As directed cranberry 400 mg Capsule 400 mg PO DAILY Rx Instructions: administer with a meal diphenhydramine HCl [Benadryl] 25 mg Capsule 25 mg PO HS Qty: 30 0RF thiamine HCl (vitamin B1) 100 mg Tablet 100 mg PO BID Qty: 60 0RF melatonin 3 mg Tablet 3 mg PO HS Qty: 30 0RF albuterol sulfate [Ventolin HFA] 90 mcg/actuation HFA aerosol inhaler 2 inh inhalation Q4H PRN (Reason: Wheezing) Rx Instructions: USE 2 INHALATIONS EVERY 4 HOURS NEEDED vitamin E (dl, acetate) 180 mg (400 unit) Capsule 360 mg PO DAILY buspirone 5 mg tablet 5 mg PO TID hydralazine 10 mg Tablet 10 mg PO TID lidocaine 4 % Adhesive Patch,Medicated 1 patch TOPICAL DAILY PRN (Reason: Other) amlodipine 5 mg tablet 5 mg PO BID docusate sodium 100 mg Capsule 100 mg PO BID PRN (Reason: Constipation) amoxicillin 250 mg Capsule 1,500 mg PO .1H BEFORE PROCEDURE Rx Instructions: dental clotrimazole [Antifungal (clotrimazole)] 1 % Cream 1 applic TOPICAL DAILY meclizine 25 mg Tablet,Chewable 25 mg PO BID PRN (Reason: Dizziness) Systane (propylene glycol) 0.4-0.3 % Drops 1 drp ophthalmic (eye) DAILY PRN (Reason: Dry Eye(S)) diclofenac sodium [Voltaren] 1 % Gel 1 inch TOPICAL TID levothyroxine 150 mcg tablet 125 mcg PO DAILYBB Referrals Referrals: FAITH Pak [Primary Care Provider] -
[2022-12-19 11:37] LABS: Basophils # (auto) 0.08 K/uL (0.00-0.20); Basophils % (auto) 0.6 %; Eosinophils # (auto) 0.31 K/uL (0.00-0.50); Eosinophils % (auto) 2.4 %; Hematocrit (blood only) 39.9 % (37.0-47.0); Hemoglobin 12.6 g/dl (12.0-16.0); Immature Granulocytes # (auto) 0.07 K/uL (0.01-0.20); Immature Granulocytes % (auto) 0.5 %; Lymphocytes # (auto) 1.41 K/uL (1.20-3.40); Lymphocytes % (auto) 10.9 %; Mean Corpuscular Hemoglobin 28.1 pg (25.0-34.0); Mean Corpuscular Hgb Conc 31.6 g/dL (32.0-36.0); Mean Corpuscular Volume 88.9 fL (80.0-100.0); Mean Platelet Volume 9.3 fL (9.4-12.4); Monocytes # (auto) 0.94 K/uL (0.11-0.59); Monocytes % (auto) 7.3 %; Neutrophils # (auto) 10.13 K/uL (1.40-6.50); Neutrophils % (auto) 78.3 %; Platelet Count 227 K/uL (130-400); RDW Standard Deviation 48.8 fL (36.4-46.3); Red Blood Count 4.49 M/uL (4.20-5.40); White Blood Count 12.94 K/ul (4.8-10.8)
--- NOTE | 2022-12-19 12:03 | XRay Report ---
XR chest 1V portable CLINICAL HISTORY: Chest pain, nonspecific TECHNIQUE: Single frontal radiograph of the chest was obtained. Comparison: Comparison is made to chest radiograph 11/12/2021 and CTA chest 06/08/2021 FINDINGS: No lines and tubes are seen. Cardiomegaly is noted. The aortic arch is calcified. Prominence and ceph alization of the vasculature is seen. Right lower lung airspace opacities are seen. No evidence of pl eural effusion or pneumothorax. IMPRESSION: 1. Cardiomegaly and mild pulmonary edema. 2. Right lower lung airspace opacity may represent atelectasis, pneumonia, and/or aspiration. ACT 112: Negative or not required by law. Electronically signed by: Mike Cassidy M.D. 12/19/2022 12:02 PM
[2022-12-19 12:09] LABS: Albumin Globulin Ratio 1.5 (0.9-2); Albumin Level 4.1 gm/dl (3.4-5.0); BUN Creatinine Ratio 20.4 (10-20); Bilirubin,Total 0.8 mg/dl (0.2-1.0); Calcium 9.6 mg/dl (8.6-10.3); Creatinine Clr Calc Pharmacy 32.7 ml/min; Est GFR (African American) 56.2 ml/min; Est GFR (Non-African American) 48.5 ml/min; Globulin 2.7 gm/dl (2.5-4.0); Total Protein 6.8 gm/dl (6.0-8.3)
[2022-12-19] MEDS ORDERED: OPTIRAY 320 500ml IV ONE (12:50)
--- NOTE | 2022-12-19 13:08 | CT Scan Report ---
CT angio head wo/w CLINICAL HISTORY: 87 years-old Female with dizzy. Acute dizziness COMPARISON STUDY: 03/21/2022 TECHNIQUE: Unenhanced axial CT scan of the brain is performed. Subsequently, following the IV adminis tration of 114 cc of Optiray, CT angiogram of the brain was performed from the skull base to the vert ex. Images are reviewed in the axial, sagittal, and coronal planes. 3-D MIPS images are created and a ssessed. IV contrast was administered without complication. All measurements were obtained according to NASCET criteria. A dose lowering technique was utilized adhering to the principles of ALARA. CT DOSE: 875.82 mGy.cm FINDINGS: CT BRAIN: There is no acute intracranial hemorrhage, midline shift, hydrocephalus, intra-axial mass, territoria l ischemia or abnormal extra-axial collections. No abnormal intra-axial or extra-axial enhancement. P robable pineal gland cyst with marginal calcifications measuring up to 1.5 cm which is unchanged. Inv olutional changes with chronic microvascular ischemic disease. Mastoid air cells and middle ear cavit ies are clear. No calvarial fracture. Moderate mucosal thickening of the frontal and ethmoid sinuses. Small right maxillary sinus air-fluid level. Prior bilateral lens repair. Streak artifact from denta l amalgam hardware limits the study. CT ANGIOGRAM OF THE BRAIN: Prominent atherosclerosis of the cavernous and clinoid segments of the internal carotid arteries with out high-grade stenosis. The bilateral anterior and middle cerebral arteries are also patent. The lilliana tebrobasilar system and posterior cerebral arteries are widely patent. There is no aneurysm, high-gra de stenosis, or proximal branch occlusion identified. Dural sinuses appear patent. IMPRESSION: 1. No acute intracranial abnormality. 2. Unremarkable CTA of the head. ACT 112: Negative or not required by law. The above report was generated using voice recognition software. It may contain grammatical, syntax o r spelling errors. Electronically signed by: Ayush Partida M.D. 12/19/2022 1:07 PM
[2022-12-19] MEDS ORDERED: LORazepam 2 MG/1 ML VIAL IV STA (13:56)
[2022-12-19] MEDS ORDERED: cefTRIAXone SODIUM 2,000 MG/50 ML BAG IV STA (14:07)
[2022-12-19] MEDS ORDERED: AZITHROMYCIN 250 MG TAB PO ONE (14:07)
--- NOTE | 2022-12-19 14:09 | History & Physical Report ---
Date of Service December 19, 2022 Assessment & Plan (1) Dizziness: Plan: -Admit to med/tele -Currently stable and asymptomatic at rest -Symptoms started this am when she tried to get out of bed this am to go to the bathroom -Symptoms occur while changing positions or moving head but no at rest, no focal neurologic symptoms or exam findings -CT of the head was negative for acute findings -At this time her presentation is most likely associated with exacerbation of her chronic vertigo. CVA is less likely at this time as symptoms are resolved at rest and she is without focal neuro findings on exam -No arrhythmia on ECG, she does have aortic stenosis which could also cause dizziness, but would think this would occur consistently if it was the primary driving factor -Will hold MRI of the brain at this time as her presentation does not appear to be caused by acute CVA, the patient is also on BID eliquis for afib and has not missed recent doses -S/P 1L NSS, 25 mg PO, meclizine, and 0.25 mg IV ativan in the ED with moderate improvement in symptoms -Will continue prn Home meclizine, monitor for improvement with treatment of likely community acquired pneumonia -Fall and aspiration precautions -PT/OT consults -Home Eliquis for DVT PPX -HH diet with 2gm sodium restriction -AM CBC, BMP, Mag, PT/INR (2) Cough: Plan: -Started to develop a productive cough with yellow sputum approximately 2 days ago -Does not have a chronic cough at baseline -Chest xray shows Cardiomegaly with mild pulmonary edema and RLL opacity which could represent pneumonia, atelectasis, and/or aspiration -Patient and daughter explain that patient does not aspirate on food but occasionally aspirates on saliva -Do not think she is in a COPD exacerbation at this time as she is not wheezing on exam and has not had increased O2 demands -S/P one dose of ceftriaxone and azithromycin in the ED, will continue with both for now -Added on procal, full respiratory biofire, and BNP for further assessment -Will try and obtain a sputum culture with gram stain -Did have her am lasix, will hold IV diuretics for now to see if she improves on current treatment regimen -Incentive spirometry, flutter therapy -Home 4L NC to keep SpO2 between 88-92% (3) Elevated troponin: Plan: -Initial high sen trop elevated at 18 -Patient is without chest pain or acute ST segment or T-Wave changes -Likely due to demand -Will FU on 2 hour repeat high sen trop -Continue to monitor on tele (4) Atrial fibrillation: Plan: -In sinus rhythm with premature supraventricular complexes -Continue Eliquis and Metoprolol (5) Hypertension: Plan: -Stable -Continue amlodipine, TID hydralazine, and losartan (6) Hypothyroidism: Plan: -Continue levothyroxine (7) COPD (chronic obstructive pulmonary disease): Plan: -Continue continuous O2 at 4L for SpO2 goal of 88-92% -Continue home breathing treatments -Incentive spirometry and flutter therapy (8) Diastolic heart failure: Plan: -Continue to monitor volume status -Continue 20 mg PO lasix daily for now -If BNP is significantly elevated will give a dose of 20 mg IV lasix later today Plan The patient was discussed with Dr. Sims at the time of the admission History of Present Illness Chief Complaint: Dizziness Primary Care Provider: [facility] Ruthy is a 87 year old female resident of [facility] with a PMH significant for vertigo, renal cell carcinoma S/P left radial and right partial nephrectomy in 1999 and 2001, hypertension, thyroidectomy, asthma/COPD on chronic 4L NC, atrial fibrillation on Eliquis, rheumatoid arthritis, aortic stenosis, paroxysmal supraventricular tachycardia, hyperlipidemia, and diastolic heart failure who presented to the [facility] ED on 12/19 with acute onset of dizziness this am. She remained stable in the ED. Labs were significant for a leukocytosis of 12 with neutrophil predominance of 10 and initial high sen trop of 18. ECG showed sinus rhythm with premature supraventricular complexes without acute ST segment or T-wave changes. CT of the head w/wo con was negative for acute findings. Chest xray was read as "1. Cardiomegaly and mild pulmonary edema. 2. Right lower lung airspace opacity may represent atelectasis, pneumonia, and/or aspiration.". The patient was initially given 25 mg PO antivert, 0.25 mg ativan, and 1L NSS without improvement in her symptoms. She was also given a dose of ceftriaxone and azithromycin for possible pneumonia. At the time of the exam the patient was lying in bed in no acute distress with her daughter/POA sitting bedside, history was obtained from both. She woke up this morning and tried to sit up to walk to the bathroom. As soon as she sat up she experienced severe dizziness with the room spinning and nausea. She had to lay back down immediately which improved her symptoms, but she was unable to change positions or move her head without the symptoms returning. She has a history of vertigo and has prn meclizine. She feels as though this is her usual vertigo, but more severe than her typical symptoms. Her daughter states that her vertigo is often exacerbated when she has other acute illnesses. She started to develop a productive cough with yellow sputum approximately 3 days ago. They deny the patient having a chronic cough at baseline with her COPD. She has not had increased O2 demands as she uses 4L NC at all times. When asked about poss ible aspiration, they deny any episodes while the patient eats. However, she does intermittently "choke" on her saliva. She denies recent new paresthesias/unilateral weakness, changes in vision, hearing, taste, or smell at rest, fever, chest pain, hemoptysis, abd pain, vomiting, dysuria, hematuria, melena, LE swelling, and recent trauma. When at rest in the ED she is without dizziness/vertigo. We discussed code status, they confirm that she is a DNR/DNI and her Daughter is her POA. Please refer to Dr. Sims's attestation for any changes to the treatment plan Allergies Allergy/AdvReac Type Severity Reaction Status Date / Time bee venom protein (honey bee) Allergy Intermediate HIVES Verified 01/20/22 13:29 oxycodone Allergy Unknown Unknown Verified 01/20/22 13:29 Sulfa (Sulfonamide Allergy Unknown MOUTH Verified 01/20/22 13:29 Antibiotics) SWELLED/HIVES TO SULFA DRUGS, chemical hepatitis gabapentin Allergy Rash Verified 01/20/22 13:29 nitrofurantoin AdvReac Severe CAUSES Verified 01/20/22 13:29 HEPATITUS hydromorphone AdvReac Intermediate HALLUCINATI Verified 01/20/22 13:29 ONS Home Medications Medication Instructions Recorded Confirmed Type ascorbic acid (vitamin C) 500 mg 500 mg PO QAM 02/08/18 12/19/22 History capsule aspirin 81 mg tablet,delayed 81 mg PO QAM 02/08/18 12/19/22 History release cholecalciferol (vitamin D3) 25 1,000 unit PO QAM 02/08/18 12/19/22 History mcg (1,000 unit) tablet (Vitamin D3) omega 3-has-rrp-fish oil 1,000 mg 1 cap PO QAM 02/08/18 12/19/22 History (120 mg-180 mg) capsule (Fish Oil) Oxygen Home #1 ea 10/19/18 01/20/22 Rx Flutter Valve #1 ea 02/03/21 01/20/22 Rx Oxygen Home #4 L 05/18/21 01/20/22 Rx albuterol sulfate 90 mcg/actuation 2 inh inhalation Q4H PRN Wheezing 06/08/21 12/19/22 History aerosol inhaler (Ventolin HFA) vitamin E (dl, acetate) 180 mg 360 mg PO DAILY 06/18/21 12/19/22 History (400 unit) capsule docusate sodium 100 mg capsule 100 mg PO QPM 06/22/21 12/19/22 History metoprolol succinate 100 mg 100 mg PO QAM #90 tabs 08/11/21 12/19/22 Rx tablet,extended release 24 hr fluticasone 100 mcg-salmeterol 50 1 inh inhalation BID #60 ea 10/04/21 12/19/22 Rx mcg/dose blistr powdr for inhalation (Advair Diskus) cranberry 400 mg capsule 400 mg PO DAILY 11/09/21 12/19/22 History diphenhydramine HCl 25 mg capsule 25 mg PO HS #30 caps 11/15/21 12/19/22 Rx (Benadryl) melatonin 3 mg tablet 3 mg PO HS #30 tabs 11/15/21 12/19/22 Rx thiamine HCl (vitamin B1) 100 mg 100 mg PO BID #60 tabs 11/15/21 12/19/22 Rx tablet acetaminophen 500 mg tablet 500 mg PO Q4H PRN pain/fever 12/02/21 12/19/22 History apixaban 5 mg tablet (Eliquis) 2.5 mg PO BID 12/02/21 12/19/22 History losartan 25 mg tablet 50 mg PO DAILY 12/02/21 12/19/22 History ondansetron HCl 4 mg tablet 4 mg PO Q6H PRN N/V 12/02/21 12/19/22 History vit C,E,Zn,Ym-[id number]-dhm-zeax 1 cap PO BID 12/02/21 12/19/22 History [PreserVision AREDS-2 (omega-3)] furosemide 20 mg tablet 20 mg PO QAM #90 tabs 01/14/22 12/19/22 Rx atorvastatin 20 mg tablet 20 mg PO HS #90 tabs 01/18/22 12/19/22 Rx sertraline 100 mg tablet 150 mg PO PM #135 tabs 05/05/22 12/19/22 Rx amlodipine 5 mg tablet 5 mg PO BID 12/19/22 12/19/22 History amoxicillin 250 mg capsule 1,500 mg PO .1H BEFORE PROCEDURE 12/19/22 12/19/22 History buspirone 5 mg tablet 5 mg PO TID 12/19/22 12/19/22 History clotrimazole 1 % topical cream 1 applic topical DAILY rash 12/19/22 12/19/22 History (Antifungal (clotrimazole)) diclofenac sodium 1 % topical gel 1 inch topical TID 12/19/22 12/19/22 History docusate sodium 100 mg capsule 100 mg PO BID PRN Constipation 12/19/22 12/19/22 History hydralazine 10 mg tablet 10 mg PO TID 12/19/22 12/19/22 History levothyroxine 150 mcg tablet 125 mcg PO DAILYBB 12/19/22 12/19/22 History lidocaine 4 % topical patch 1 patch topical DAILY PRN Other 12/19/22 12/19/22 History meclizine 25 mg chewable tablet 25 mg PO BID PRN Dizziness 12/19/22 12/19/22 History peg 400-propylene glycol 0.4 %-0.3 1 drp ophthalmic (eye) DAILY PRN 12/19/22 12/19/22 History % eye drops (Systane (propylene Dry Eye(S) glycol)) Past Med/Surg History Medical History Acute and chronic respiratory failure with hypoxia Acute on chronic diastolic heart failure Anemia Anxiety Asthma Asymptomatic postmenopausal status Atrial fibrillation Breast lump Carpal tunnel syndrome of left wrist Chronic kidney disease Degenerative disc disease Depression Dermatitis Dyspnea Fatigue Hypercholesterolemia Hyperlipidemia Hypertension Hypothyroidism Hypoxia Hypoxia 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) Liver enzyme elevation Macular degeneration Mitral insufficiency Noncompliance Obesity Osteoarthritis Paroxysmal SVT (supraventricular tachycardia) Pulmonary edema Renal cell carcinoma Sinus bradycardia Vertigo Weakness Yeast dermatitis Surgical History Fusion of spine H/O left radical nephrectomy H/O partial nephrectomy History of anesthesia reaction History of bladder surgery History of cardiac cath History of carpal tunnel release History of cataract surgery History of colonoscopy History of esophagogastroduodenoscopy (EGD) History of hysterectomy History of thyroidectomy, subtotal History of tooth extraction History of total knee replacement Family History Brother History of colon resection Colorectal cancer Diabetes Prostate cancer Sister Breast cancer Mother Diabetes Coronary heart disease Father Myocardial infarction Denies family history of Ovarian cancer Social History Smoking Status: Never smoker Second Hand Exposure: No; Do You Dip or Chew Tobacco: No; Hx Alcohol Use: No Hx Substance Use: No Preferred Language: Italian Communication Ability: Effective Visual Impairment: No Limitations Hearing Ability: Normal Facing End Trimmer Required: No Beliefs That Will Affect Care: None Current Living Situation: Alone Current Living Situation Comment: spouse lives in a home current occupational status: retired 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 How many Children do You have: 2 Feels Safe at Home: Yes Childhood Exposure to Second-Hand Smoke: No Diet: low salt caffeine: Yes (soda rarley) Dental Care, Regularly: No Physical Activity Frequency: Daily Seatbelt Use: always Sunscreen Use: Yes Assistive Devices: Walker Physical Exam Physical Exam: Physical Exam: General: In no acute distress, stated age, non-toxic appearing, HEENT: Normocephalic, atraumatic, no scleral icterus, pupils around round, symmetrical, and reactive to light, moist mucus membranes, trachea midline, no thyromegaly Chest/Pulm: No respiratory distress, symmetrical chest expansion, rhonchi noted in the RLL, otherwise CTA Cardiac: RRR, no murmurs noted Abdomen: Negative for ascites and bruising, normoactive bowel sounds, soft, non-tender to palpation throughout Musculoskeletal: Symmetrical and without signs of acute trauma, upper and lower extremities with full ROM, no atrophy, spasticity, or flaccidity Extremities: Radial, dorsalis pedis, and posterior tibial pulses are intact and symmetrical, no edema noted in the BL LE's Skin: Warm, dry, no rashes , lesions, or scars noted Neuro: Alert and oriented to person, place, month, year, and president, no focal defects, CN II-XII tested and intact, negative cerebellar and pronator drift testing BL, no tremors noted Psych: No acute distress, calm and cooperative during the exam Results & Data Results & Data Vital Signs (Past 12 Hours) Vital Signs Temp Pulse Resp BP Pulse Ox O2 Del Method O2 Flow Rate 12/19/22 11:32 90 Nasal Cannula 4 12/19/22 10:55 36.7 C 72 18 188/87 H 93 Nasal Cannula 4 12/19/22 10:55 73 18 90 Nasal Cannula 4 12/19/22 11:04 73 Laboratory Results Abnormal lab results 12/19/22 12/19/22 Range/Units 11:16 11:16 WBC 12.94 H (4.8-10.8) K/ul MCHC 31.6 L (32.0-36.0) g/dL RDW Std Deviation 48.8 H (36.4-46.3) fL RDW Coeff of Yanelis 15.0 H (11.5-14.5) % MPV 9.3 L (9.4-12.4) fL Neut # (Auto) 10.13 H (1.40-6.50) K/uL [place] # (Auto) 0.94 H (0.11-0.59) K/uL BUN/Creatinine Ratio 20.4 H (10-20) Glucose 115 H (70-99(Fasting)) mg/dl Troponin I High Sens 18.0 H (0-14) pg/ml Diagnostic Findings Chest X-Ray 12/19/22 10:55 XR chest 1V portable CLINICAL HISTORY: Chest pain, nonspecific TECHNIQUE: Single frontal radiograph of the chest was obtained. Comparison: Comparison is made to chest radiograph 11/12/2021 and CTA chest 06/08/2021 FINDINGS: No lines and tubes are seen. Cardiomegaly is noted. The aortic arch is calcified. Prominence and cephalization of the vasculature is seen. Right lower lung airspace opacities are seen. No evidence of pleural effusion or pneumothorax. IMPRESSION: 1. Cardiomegaly and mild pulmonary edema. 2. Right lower lung airspace opacity may represent atelectasis, pneumonia, and/or aspiration. ACT 112: Negative or not required by law. Electronically signed by: Mike Cassidy M.D. 12/19/2022 12:02 PM Head CTA 12/19/22 10:55 CT angio head wo/w CLINICAL HISTORY: 87 years-old Female with dizzy. Acute dizziness COMPARISON STUDY: 03/21/2022 TECHNIQUE: Unenhanced axial CT scan of the brain is performed. Subsequently, following the IV administration of 114 cc of Optiray, CT angiogram of the brain was performed from the skull base to the vertex. Images are reviewed in the axial, sagittal, and coronal planes. 3-D MIPS images are created and assessed. IV contrast was administered without complication. All measurements were obtained according to NASCET criteria. A dose lowering technique was utilized adhering to the principles of ALARA. CT DOSE: 875.82 mGy.cm FINDINGS: CT BRAIN: There is no acute intracranial hemorrhage, midline shift, hydrocephalus, intra- axial mass, territorial ischemia or abnormal extra-axial collections. No abnormal intra-axial or extra-axial enhancement. 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 Involutional changes with chronic microvascular ischemic disease. Mastoid air cells and middle ear cavities are clear. No calvarial fracture. Moderate mucosal thickening of the frontal and ethmoid sinuses. Small right maxillary sinus air- fluid level. Prior bilateral lens repair. Streak artifact from dental amalgam hardware limits the study. CT ANGIOGRAM OF THE BRAIN: Prominent atherosclerosis of the cavernous and clinoid segments of the internal carotid arteries without high-grade stenosis. The bilateral anterior and middle cerebral arteries are also patent. The vertebrobasilar system and posterior cerebral arteries are widely patent. There is no aneurysm, high-grade stenosis, or proximal branch occlusion identified. Dural sinuses appear patent. IMPRESSION: 1. No acute intracranial abnormality. 2. Unremarkable CTA of the head. ACT 112: Negative or not required by law. The above report was generated using voice recognition software. It may contain grammatical, syntax or spelling errors. Electronically signed by: Ayush Partida M.D. 12/19/2022 1:07 PM ECG Additional Comments: Sinus rhythm with Premature supraventricular complexes Possible Left atrial enlargement Left axis deviation Left ventricular hypertrophy with repolarization abnormality ( R in aVL , Colp product , Romhilt-Castillo ) Abnormal ECG When compared with ECG of 21-MAR-2022 13:01, Premature ventricular complexes are no longer Present Premature supraventricular complexes are now Present Minimal criteria for Septal infarct are no longer Present Code Status & VTE Plan Code Status DNR/DNI VTE Prophylaxis Plan VTE Prophylaxis will be ordered: Yes Supervising Physician Co-Signing Physician Notes Patient seen and examined, chart reviewed, case discussed with Joey Yang PA-C and I agree with the assessment and plan as above except as otherwise noted Labs and images reviewed 87-year-old female with a history of partial nephrectomy for renal cell carcinoma, vertigo, hypertension, asthma/COPD, chronic hypoxic respiratory failure on baseline 4 L nasal cannula, A-fib on Eliquis, RA, AAS, SVT, h yperlipidemia, diastolic heart failure who presents with dizziness. Lungs are diminished with basilar crackles bilaterally. Regular heart rate at bedside. Patient has a mild leukocytosis without left shift, chest x-ray is both with evidence of mild volume overload and with slight right lung airspace opacity. She is adenovirus positive on admission. Procalcitonin is normal. Patient received Rocephin and azithromycin initially for suspicion of community-acquired pneumonia," testing is consistent with viral pneumonia. Antibiotics discontinued, supportive care for viral pneumonia. Patient also shows evidence of mild congestive overload with elevated BNP and pulmonary edema; Lasix ordered. Troponin slightly elevated consistent with demand. Agree with assessment and management above. PG Care Time/CCT Total # of Minutes Spent Total Time Spent with Patient: Total time spent is greater than 50% in coordination of care (as documented) at patient's floor/unit and/or counseling patient: Coding [place] [address] INT INP/OBS CARE 2/55MIN Patient Type Established Medical Decision Making Moderate Complexity Diagnoses Dizziness R42 Cough R05.9 Elevated troponin R79.89 Atrial fibrillation I48.91 Hypertension I10 Hypothyroidism E03.9 COPD (chronic obstructive pulmonary disease) J44.9 Diastolic heart failure I50.30
[2022-12-19] MEDS ORDERED: hydrALAZINE 10 MG TAB PO STA (15:32)
[2022-12-19] MEDS: ONDANSETRON INJ 2 MG/ML 2 ML VIAL IV SCH ×2 (15:50→21:24)
[2022-12-19 16:05] LABS: Adenovirus PCR Not Detected (NotDetected); Bordetella parapertussis PCR Not Detected (NotDetected); Bordetella pertussis PCR Not Detected (NotDetected); Chlamydia pneumoniae PCR Not Detected (NotDetected); Coronavirus 229E PCR Not Detected (NotDetected); Coronavirus CoV-2 (COVID19)PCR Not Detected (NotDetected); Coronavirus HKU1 PCR Not Detected (NotDetected); Coronavirus NL63 PCR Not Detected (NotDetected); Coronavirus OC43PCR Not Detected (NotDetected); Human Metapneumovirus PCR Not Detected (NotDetected); Influenza A PCR Not Detected (NotDetected); Influenza B PCR Not Detected (NotDetected); Mycoplasma pneumoniae PCR Not Detected (NotDetected); Parainfluenza Virus 1 PCR Not Detected (NotDetected); Parainfluenza Virus 2 PCR Not Detected (NotDetected); Parainfluenza Virus 3 PCR Not Detected (NotDetected); Parainfluenza Virus 4 PCR Not Detected (NotDetected); Respiratory Syncytial VirusPCR Not Detected (NotDetected)
[2022-12-19 16:16] LABS: Rhinovirus/Enterovirus PCR DETECTED (NotDetected)
[2022-12-19] MEDS ORDERED: DOCUSATE SODIUM 100 MG CAP PO PRN (16:31)
[2022-12-19] MEDS ORDERED: ACETAMINOPHEN 325 MG TAB PO PRN (16:31)
[2022-12-19] MEDS ORDERED: MECLIZINE HCL 25 MG TAB PO PRN (16:31)
[2022-12-19] MEDS ORDERED: ALBUTEROL HFA 8 GM INHALER INH PRN (16:31)
[2022-12-19] MEDS ORDERED: FUROSEMIDE INJ 20 MG/2 ML VIAL IV ONE (16:35)
[2022-12-19] MEDS: MELATONIN 3 MG TAB PO SCH (21:22)
[2022-12-19] MEDS: SERTRALINE HCL 50 MG TABLET PO SCH (21:22)
[2022-12-19] MEDS: busPIRone 5 MG TAB PO SCH (21:23)
[2022-12-19] MEDS: hydrALAZINE 10 MG TAB PO SCH (21:23)
[2022-12-19] MEDS: ATORVASTATIN 20 MG TAB PO SCH (21:23)
[2022-12-19] MEDS: APIXABAN 2.5 MG TAB PO SCH (21:23)
[2022-12-19] MEDS: amLODIPine BESYLATE 5 MG TAB PO SCH (21:23)
[2022-12-20] MEDS: ONDANSETRON INJ 2 MG/ML 2 ML VIAL IV SCH ×4 (02:53→20:34)
[2022-12-20 04:22] LABS: BUN Creatinine Ratio 18.9 (10-20); Calcium 9.5 mg/dl (8.6-10.3); Creatinine Clr Calc Pharmacy 30.3 ml/min; Est GFR (African American) 51.3 ml/min; Est GFR (Non-African American) 44.3 ml/min; Magnesium 1.9 mg/dl (1.7-2.4); Potassium 3.9 mmol/L (3.5-5.1)
[2022-12-20 04:29] LABS: Basophils # (auto) 0.08 K/uL (0.00-0.20); Basophils % (auto) 0.6 %; Eosinophils # (auto) 0.26 K/uL (0.00-0.50); Eosinophils % (auto) 1.8 %; Hematocrit (blood only) 39.5 % (37.0-47.0); Hemoglobin 12.7 g/dl (12.0-16.0); Immature Granulocytes # (auto) 0.07 K/uL (0.01-0.20); Immature Granulocytes % (auto) 0.5 %; Lymphocytes # (auto) 1.35 K/uL (1.20-3.40); Lymphocytes % (auto) 9.6 %; Mean Corpuscular Hemoglobin 27.9 pg (25.0-34.0); Mean Corpuscular Hgb Conc 32.2 g/dL (32.0-36.0); Mean Corpuscular Volume 86.6 fL (80.0-100.0); Mean Platelet Volume 9.5 fL (9.4-12.4); Monocytes # (auto) 0.88 K/uL (0.11-0.59); Monocytes % (auto) 6.2 %; Neutrophils # (auto) 11.47 K/uL (1.40-6.50); Neutrophils % (auto) 81.3 %; Platelet Count 222 K/uL (130-400); RDW Coefficient of Variation 14.9 % (11.5-14.5); RDW Standard Deviation 47.8 fL (36.4-46.3); Red Blood Count 4.56 M/uL (4.20-5.40); White Blood Count 14.11 K/ul (4.8-10.8)
[2022-12-20 04:35] LABS: INR 1.2 (0.9-1.1)
[2022-12-20] MEDS: LEVOTHYROXINE SODIUM 125 MCG TABLET PO SCH (05:50)
--- NOTE | 2022-12-20 07:30 | Electrocardiogram Report ---
Test Reason : Blood Pressure : / mmHG Vent. Rate : 076 BPM Atrial Rate : 076 BPM P-R Int : 164 ms QRS Dur : 092 ms QT Int : 398 ms P-R-T Axes : 047 -45 105 degrees QTc Int : 447 ms Sinus rhythm with Premature supraventricular complexes Possible Left atrial enlargement Left axis deviation Left ventricular hypertrophy with repolarization abnormality ( R in aVL , Zalma product , Romhilt-E stes ) Abnormal ECG When compared with ECG of 21-MAR-2022 13:01, Premature ventricular complexes are no longer Present Premature supraventricular complexes are now Present Minimal criteria for Septal infarct are no longer Present Confirmed by Rick Wallace ([id number]) on 12/20/2022 7:30:18 AM Referred By: Sonia Vasquez Confirmed By:Rick Wallace
[2022-12-20] MEDS ORDERED: AZITHROMYCIN 250 MG TAB PO SCH (09:00)
[2022-12-20] MEDS: METOPROLOL SUCC 50MG EXT REL TAB PO SCH (09:26)
[2022-12-20] MEDS: busPIRone 5 MG TAB PO SCH ×3 (09:27→20:36)
[2022-12-20] MEDS: LOSARTAN POTASSIUM 50 MG TAB PO SCH (09:27)
[2022-12-20] MEDS: hydrALAZINE 10 MG TAB PO SCH ×3 (09:27→20:36)
[2022-12-20] MEDS: ASPIRIN 81 MG ECTAB PO SCH (09:27)
[2022-12-20] MEDS: amLODIPine BESYLATE 5 MG TAB PO SCH ×2 (09:28→20:35)
[2022-12-20] MEDS: APIXABAN 2.5 MG TAB PO SCH ×2 (09:28→20:35)
[2022-12-20] MEDS: FLUTICASONE/VILANTEROL 100/25MCG 14 PUFFS/INHALER INH SCH (09:28)
[2022-12-20] MEDS: FUROSEMIDE 20 MG TAB PO SCH (10:10)
[2022-12-20] MEDS ORDERED: cefTRIAXone SODIUM 1,000 MG in DEXTROSE 5 % MINI-B 50 ML IV SCH (14:00)
--- NOTE | 2022-12-20 14:33 | Electrocardiogram Report ---
Test Reason : Blood Pressure : / mmHG Vent. Rate : 067 BPM Atrial Rate : 067 BPM P-R Int : 166 ms QRS Dur : 120 ms QT Int : 440 ms P-R-T Axes : -26 -46 094 degrees QTc Int : 464 ms Normal sinus rhythm Left ventricular hypertrophy with repolarization abnormality Abnormal ECG When compared with ECG of 19-DEC-2022 10:59, Premature supraventricular complexes are no longer Present Confirmed by Zain Blackburn ([id number]) on 12/20/2022 2:33:04 PM Referred By: [facility] Cas Vasquez Confirmed By:Zain Blackburn
--- NOTE | 2022-12-20 15:23 | Hospitalist Progress Note ---
Date of Service December 20, 2022 Assessment & Plan (1) Dizziness: Plan: Resolved. She had vertigo prior to admission which sounds like benign positional vertigo. Again, this has resolved. (2) Cough: Plan: I suspect she has acute bronchitis. Chest x-ray findings are chronic. She remains on Rocephin and azithromycin. We will culture sputum if sputum is produced. I do not believe she has acute pneumonia (3) Chronic respiratory failure with hypoxia: Plan: She is on her baseline requirement of 4 L/min per nasal cannula (4) Elevated troponin: Plan: Appears to be supply/demand mismatch. Troponin is minimally elevated. No acute EKG changes. No chest pain (5) Atrial fibrillation: Plan: Paroxysmal. Currently in normal sinus rhythm. Continue Eliquis and metoprolol. Telemetry (6) Hypertension: Plan: Stable . Continue amlodipine, hydralazine, losartan (7) Hypothyroidism: Plan: Stable. Continue levothyroxine (8) COPD (chronic obstructive pulmonary disease): Plan: Stable. Continue current medical management (9) Diastolic heart failure: Plan: Chronic. No overt acute exacerbation. Continue current medical management. Monitor intake and output Plan Hopeful discharge back to her home within the next 24 to 48 hours. OT and PT assessments requested Admission and Anticipated Discharge Date Admission Date: December 19, 2022 Subjective Alert and oriented. No distress. She states her vertigo has resolved. Her second EKG shows no new changes. Minimal troponin elevation is probably demand ischemia. She has evidence of acute bronchitis. I doubt she has pneumonia. She is on Rocephin and azithromycin which we will continue. OT and PT assessments requested. She is on her baseline oxygen requirement of 4 L/min Review of Systems Review of Systems: Constitutional-no fever or chills ENT-no blurred vision, no double vision, no epistaxis, no sore throat Respiratory-chronic cough. No sputum production. No wheezing, no shortness of breath Cardiac-no palpitations, no chest pain, no syncope GI-no nausea, vomiting, diarrhea, melena, hematochezia -no urinary retention, no urinary incontinence, no dysuria, no hematuria Musculoskeletal-no joint pain, no muscle tenderness Skin-no bruising, no rashes, no pruritus Neuro-no isolated weakness, no paresthesia, no weakness Psych-no depression, no anxiety Physical Exam Physical Exam: General-alert and oriented x3, no fevers, no chills HEENT-head atraumatic and normocephalic, pupils equal and reactive to light, extraocular muscles intact Neck-no lymphadenopathy or thyromegaly, trachea midline Chest-midline rhonchi. No wheezing. No inspiratory i Cardiac-regular rate and rhythm, normal S1 and S2 Abdomen-normal bowel sounds, nontender, no hepatosplenomegaly Extremities-no cyanosis, clubbing, or edema Neuro-cranial nerves II through XII intact, motor and sensory function within normal limits, strength symmetrical, no focal deficits Psych-normal affect, normal mood Results & Data Results & Data Vital Signs (Past 12 Hours) Vital Signs Temp Pulse Pulse Resp BP Pulse Ox O2 Del Method 12/20/22 15:09 56 L 12/20/22 14:39 36.9 C 58 L 20 153/77 H 95 Nasal Cannula 12/20/22 13:31 64 17 197/88 H 94 Nasal Cannula 12/20/22 09:25 69 22 190/91 H 96 Nasal Cannula 12/20/22 09:23 99 Non-rebreather 12/20/22 09:21 67 L Room Air 12/20/22 06:32 Nasal Cannula 12/20/22 05:00 59 L 17 171/93 H 96 Nasal Cannula O2 Flow Rate 12/20/22 15:09 12/20/22 14:39 4 12/20/22 13:31 4 12/20/22 09:25 4 12/20/22 09:23 15 12/20/22 09:21 12/20/22 06:32 4 12/20/22 05:00 4 Laboratory Results 12/20/22 03:32 12/20/22 03:32 PG Care Time/CCT Total # of Minutes Spent Total Time Spent with Patient: Total time spent is greater than 50% in coordination of care (as documented) at patient's floor/unit and/or counseling patient: Coding Level of Care Code 86558 SUB INP/OBS CARE 3/50MIN Diagnoses Dizziness R42 Cough R05.9 Chronic respiratory failure with hypoxia J96.11 Elevated troponin R79.89 Atrial fibrillation I48.91 Hypertension I10 Hypothyroidism E03.9 COPD (chronic obstructive pulmonary disease) J44.9 Diastolic heart failure I50.30
[2022-12-20] MEDS: MELATONIN 3 MG TAB PO SCH (20:35)
[2022-12-20] MEDS: ATORVASTATIN 20 MG TAB PO SCH (20:35)
[2022-12-20] MEDS: SERTRALINE HCL 50 MG TABLET PO SCH (20:35)
[2022-12-21] MEDS ORDERED: METOPROLOL TARTRATE 1 MG/ML VIAL IV PRN (02:33)
[2022-12-21] MEDS: ONDANSETRON INJ 2 MG/ML 2 ML VIAL IV SCH ×4 (02:50→21:17)
[2022-12-21 03:20] LABS: Basophils % (auto) 0.8 %; Eosinophils # (auto) 0.35 K/uL (0.00-0.50); Eosinophils % (auto) 2.8 %; Hematocrit (blood only) 39.5 % (37.0-47.0); Immature Granulocytes # (auto) 0.07 K/uL (0.01-0.20); Immature Granulocytes % (auto) 0.6 %; Lymphocytes # (auto) 1.57 K/uL (1.20-3.40); Lymphocytes % (auto) 12.6 %; Mean Corpuscular Hemoglobin 28.9 pg (25.0-34.0); Mean Corpuscular Hgb Conc 32.9 g/dL (32.0-36.0); Mean Corpuscular Volume 87.8 fL (80.0-100.0); Mean Platelet Volume 9.8 fL (9.4-12.4); Monocytes # (auto) 0.99 K/uL (0.11-0.59); Neutrophils # (auto) 9.36 K/uL (1.40-6.50); Neutrophils % (auto) 75.2 %; Platelet Count 225 K/uL (130-400); RDW Coefficient of Variation 14.8 % (11.5-14.5); RDW Standard Deviation 47.8 fL (36.4-46.3); White Blood Count 12.44 K/ul (4.8-10.8)
[2022-12-21 03:56] LABS: INR 1.2 (0.9-1.1); Prothrombin Time 13.1 Seconds (9.0-12.0)
[2022-12-21 04:53] LABS: BUN Creatinine Ratio 22.6 (10-20); Calcium 9.5 mg/dl (8.6-10.3); Creatinine Clr Calc Pharmacy 20.5 ml/min; Est GFR (Non-African American) 27.6 ml/min; Magnesium 1.8 mg/dl (1.7-2.4)
[2022-12-21] MEDS: LEVOTHYROXINE SODIUM 125 MCG TABLET PO SCH (04:59)
[2022-12-21] MEDS ORDERED: SODIUM CHLORIDE 0.9% 1,000 ML IV ONE (06:29)
[2022-12-21] MEDS: amLODIPine BESYLATE 5 MG TAB PO SCH (09:52)
[2022-12-21] MEDS: FLUTICASONE/VILANTEROL 100/25MCG 14 PUFFS/INHALER INH SCH (09:53)
[2022-12-21] MEDS: hydrALAZINE 10 MG TAB PO SCH (09:54)
[2022-12-21] MEDS: APIXABAN 2.5 MG TAB PO SCH ×2 (11:07→21:18)
[2022-12-21] MEDS: busPIRone 5 MG TAB PO SCH ×3 (11:07→21:18)
[2022-12-21] MEDS: METOPROLOL SUCC 50MG EXT REL TAB PO SCH (11:08)
[2022-12-21] MEDS: FUROSEMIDE 20 MG TAB PO SCH (11:08)
[2022-12-21] MEDS: LOSARTAN POTASSIUM 50 MG TAB PO SCH (11:08)
[2022-12-21] MEDS: ASPIRIN 81 MG ECTAB PO SCH (14:41)
--- NOTE | 2022-12-21 15:31 | Hospitalist Progress Note ---
Date of Service December 21, 2022 Assessment & Plan (1) Dizziness: Plan: Intermittent. She had vertigo prior to admission which sounds like benign positional vertigo. Transient symptoms with movement (2) Cough: Plan: Suspected acute bronchitis. Chest x-ray findings are chronic. She remains on Rocephin and azithromycin. We will culture sputum if sputum is produced. I do not believe she has acute pneumonia (3) Chronic respiratory failure with hypoxia: Plan: She is on her baseline requirement of 4 L/min per nasal cannula (4) Elevated troponin: Plan: Appears to be supply/demand mismatch. Troponin is minimally elevated. No acute EKG changes. No chest pain (5) Atrial fibrillation: Plan: Paroxysmal. Atrial fib with rapid ventricular rate occurred again last evening. She received intravenous metoprolol. Blood pressure is on the low side. Hydralazine and amlodipine have been discontinued. Continue Eliquis and metoprolol. Telemetry (6) Hypertension: Plan: Blood pressure is on the low side. Continue metoprolol. Amlodipine and hydralazine have been discontinued. Losartan has been discontinued. (7) Hypothyroidism: Plan: Stable. Continue levothyroxine (8) COPD (chronic obstructive pulmonary disease): Plan: Stable. Continue current medical management (9) Diastolic heart failure: Plan: Chronic. No overt acute exacerbation. Continue current medical management. Monitor intake and output Plan Hopeful discharge to [facility] when heart rate is controlled Admission and Anticipated Discharge Date Admission Date: December 19, 2022 Subjective Alert and oriented. She required intravenous metoprolol for rapid ventricular rate. Blood pressure is on the low side. Amlodipine and hydralazine have been discontinued. She continues with intravenous Rocephin and azithromycin, day 3, for suspected bronchitis. She still gets some vertiginous symptoms with movement. Hopefully she can go to [facility] tomorrow, December 22 Review of Systems Review of Systems: Constitutional-no fever or chills ENT-no blurred vision, no double vision, no epistaxis, no sore throat Respiratory-chronic cough. No sputum production. No wheezing, no shortness of breath Cardiac-no palpitations, no chest pain, no syncope GI-no nausea, vomiting, diarrhea, melena, hematochezia -no urinary retention, no urinary incontinence, no dysuria, no hematuria Musculoskeletal-no joint pain, no muscle tenderness Skin-no bruising, no rashes, no pruritus Neuro-no isolated weakness, no paresthesia, no weakness. Intermittent vertigo with movement Psych-no depression, no anxiety Physical Exam Physical Exam: General-alert and oriented x3, no fevers, no chills HEENT-head atraumatic and normocephalic, pupils equal and reactive to light, extraocular muscles intact Neck-no lymphadenopathy or thyromegaly, trachea midline Chest-midline rhonchi. No wheezing. Cardiac-irregular rhythm. Rapid rate. Normal S1 and S2 Abdomen-normal bowel sounds, nontender, no hepatosplenomegaly Extremities-no cyanosis, clubbing, or edema Neuro-cranial nerves II through XII intact, motor and sensory function within normal limits, strength symmetrical, no focal deficits Psych-normal affect, normal mood Results & Data Results & Data Vital Signs (Past 12 Hours) Vital Signs Temp Pulse Pulse Resp BP BP Pulse Ox 12/21/22 15:05 36.5 C 62 17 97/60 L 96 12/21/22 07:00 147 H 12/21/22 08:00 12/21/22 11:02 36.6 C 119 H 18 116/79 93 12/21/22 07:32 36.6 C 118 H 16 100/66 94 12/21/22 06:47 122 H 91/46 L 12/21/22 06:39 101/68 12/21/22 06:38 108 H 76/46 L 95 12/21/22 04:58 126 H 12/21/22 04:09 132 H 102/66 O2 Del Method O2 Flow Rate 12/21/22 15:05 Nasal Cannula 3 12/21/22 07:00 12/21/22 08:00 Room Air 12/21/22 11:02 Nasal Cannula 3 12/21/22 07:32 Nasal Cannula 2 12/21/22 06:47 12/21/22 06:39 12/21/22 06:38 Nasal Cannula 4 12/21/22 04:58 12/21/22 04:09 Laboratory Results 12/21/22 02:48 12/21/22 02:48 PG Care Time/CCT Total # of Minutes Spent Total Time Spent with Patient: Total time spent is greater than 50% in coordination of care (as documented) at patient's floor/unit and/or counseling patient: Coding Level of Care Code 72978 SUB INP/OBS CARE 50MIN Diagnoses Dizziness R42 Cough R05.9 Chronic respiratory failure with hypoxia J96.11 Elevated troponin R79.89 Atrial fibrillation I48.91 Hypertension I10 Hypothyroidism E03.9 COPD (chronic obstructive pulmonary disease) J44.9 Diastolic heart failure I50.30
[2022-12-21] MEDS: MELATONIN 3 MG TAB PO SCH (21:18)
[2022-12-21] MEDS: SERTRALINE HCL 50 MG TABLET PO SCH (21:18)
[2022-12-21] MEDS: ATORVASTATIN 20 MG TAB PO SCH (21:19)
[2022-12-22] MEDS: ONDANSETRON INJ 2 MG/ML 2 ML VIAL IV SCH ×4 (04:08→21:28)
[2022-12-22 05:39] LABS: BUN Creatinine Ratio 35.8 (10-20); Calcium 8.9 mg/dl (8.6-10.3); Creatinine Clr Calc Pharmacy 21.3 ml/min; Est GFR (African American) 35.4 ml/min; Est GFR (Non-African American) 30.5 ml/min
[2022-12-22] MEDS: LEVOTHYROXINE SODIUM 125 MCG TABLET PO SCH (05:41)
[2022-12-22 05:44] LABS: Basophils # (auto) 0.09 K/uL (0.00-0.20); Eosinophils # (auto) 0.31 K/uL (0.00-0.50); Eosinophils % (auto) 3.5 %; Hematocrit (blood only) 36.7 % (37.0-47.0); Hemoglobin 11.5 g/dl (12.0-16.0); Immature Granulocytes # (auto) 0.04 K/uL (0.01-0.20); Immature Granulocytes % (auto) 0.5 %; Lymphocytes # (auto) 1.33 K/uL (1.20-3.40); Lymphocytes % (auto) 15.1 %; Mean Corpuscular Hgb Conc 31.3 g/dL (32.0-36.0); Mean Corpuscular Volume 89.3 fL (80.0-100.0); Mean Platelet Volume 9.5 fL (9.4-12.4); Monocytes # (auto) 0.82 K/uL (0.11-0.59); Monocytes % (auto) 9.3 %; Neutrophils # (auto) 6.22 K/uL (1.40-6.50); Neutrophils % (auto) 70.6 %; Platelet Count 207 K/uL (130-400); RDW Coefficient of Variation 14.6 % (11.5-14.5); RDW Standard Deviation 47.2 fL (36.4-46.3); Red Blood Count 4.11 M/uL (4.20-5.40); White Blood Count 8.81 K/ul (4.8-10.8)
[2022-12-22] MEDS: ASPIRIN 81 MG ECTAB PO SCH (08:39)
[2022-12-22] MEDS: METOPROLOL SUCC 50MG EXT REL TAB PO SCH (08:42)
[2022-12-22] MEDS: busPIRone 5 MG TAB PO SCH ×3 (08:42→21:27)
[2022-12-22] MEDS: APIXABAN 2.5 MG TAB PO SCH ×2 (08:43→21:27)
[2022-12-22] MEDS: FUROSEMIDE 20 MG TAB PO SCH (08:43)
[2022-12-22] MEDS: FLUTICASONE/VILANTEROL 100/25MCG 14 PUFFS/INHALER INH SCH (08:44)
[2022-12-22] MEDS: LOSARTAN POTASSIUM 50 MG TAB PO SCH (08:45)
[2022-12-22] MEDS ORDERED: amLODIPine BESYLATE 5 MG TAB PO SCH (09:00)
--- NOTE | 2022-12-22 11:43 | Discharge Summary ---
Date of Service December 22, 2022 Admission HPI Per Admitting Provider Ruthy is a 87 year old female resident of [facility] with a PMH significant for vertigo, renal cell carcinoma S/P left radial and right partial nephrectomy in 1999 and 2001, hypertension, thyroidectomy, asthma/COPD on chronic 4L NC, atrial fibrillation on Eliquis, rheumatoid arthritis, aortic stenosis, paroxysmal supraventricular tachycardia, hyperlipidemia, and diastolic heart failure who presented to the [facility] ED on 12/19 with acute onset of dizziness this am. She remained stable in the ED. Labs were significant for a leukocytosis of 12 with neutrophil predominance of 10 and initial high sen trop of 18. ECG showed sinus rhythm with premature supraventricular complexes without acute ST segment or T-wave changes. CT of the head w/wo con was negative for acute findings. Chest xray was read as "1. Cardiomegaly and mild pulmonary edema. 2. Right lower lung airspace opacity may represent atelectasis, pneumonia, and/or aspiration.". The patient was initially given 25 mg PO antivert, 0.25 mg ativan, and 1L NSS without improvement in her symptoms. She was also given a dose of ceftriaxone and azithromycin for possible pneumonia. At the time of the exam the patient was lying in bed in no acute distress with her daughter/POA sitting bedside, history was obtained from both. She woke up this morning and tried to sit up to walk to the bathroom. As soon as she sat up she experienced severe dizziness with the room spinning and nausea. She had to lay back down immediately which improved her symptoms, but she was unable to change positions or move her head without the symptoms returning. She has a history of vertigo and has prn meclizine. She feels as though this is her usual vertigo, but more severe than her typical symptoms. Her daughter states that her vertigo is often exacerbated when she has other acute illnesses. She started to develop a productive cough with yellow sputum approximately 3 days ago. They deny the patient having a chronic cough at baseline with her COPD. She has not had increased O2 demands as she uses 4L NC at all times. When asked about possible aspiration, they deny any episodes while the patient eats. However, she does intermittently "choke" on her saliva. She denies recent new paresthesias/unilateral weakness, changes in vision, hearing, taste, or smell at rest, fever, chest pain, hemoptysis, abd pain, vomiting, dysuria, hematuria, melena, LE swelling, and recent trauma. When at rest in the ED she is without dizziness/vertigo. We discussed code status, they confirm that she is a DNR/DNI and her Daughter is her POA. Please refer to Dr. Sims's attestation for any changes to the treatment plan Principal Diagnosis Atrial fibrillation with rapid ventricular rate, benign positional vertigo, suspected acute bronchitis Discharge Exam General-alert and oriented x3, no fevers, no chills HEENT-head atraumatic and normocephalic, pupils equal and reactive to light, extraocular muscles intact Neck-no lymphadenopathy or thyromegaly, trachea midline Chest-midline rhonchi. No wheezing. Cardiac-irregular rhythm. Rapid rate. Normal S1 and S2 Abdomen-normal bowel sounds, nontender, no hepatosplenomegaly Extremities-no cyanosis, clubbing, or edema Neuro-cranial nerves II through XII intact, motor and sensory function within normal limits, strength symmetrical, no focal deficits Psych-normal affect, normal mood Discharge Data Allergies Allergy/AdvReac Type Severity Reaction Status Date / Time bee venom protein (honey bee) Allergy Intermediate HIVES Verified 01/20/22 13:29 oxycodone Allergy Unknown Unknown Verified 01/20/22 13:29 Sulfa (Sulfonamide Allergy Unknown MOUTH Verified 01/20/22 13:29 Antibiotics) SWELLED/HIVES TO SULFA DRUGS, chemical hepatitis gabapentin Allergy Rash Verified 01/20/22 13:29 nitrofurantoin AdvReac Severe CAUSES Verified 01/20/22 13:29 HEPATITUS hydromorphone AdvReac Intermediate HALLUCINATI Verified 01/20/22 13:29 ONS Consultations 12/19/22 14:05 ED Decision to Admit Stat 12/19/22 14:08 ED Decision to Admit Stat Ordered Studies 12/19/22 10:55 CT angio head wo/w Stat Hospital Course (1) Dizziness: Intermittent. She had vertigo prior to admission which sounds like benign positional vertigo. Transient symptoms with movement. Improved overall (2) Cough: Suspected acute bronchitis. Chest x-ray findings are chronic. She was treated while hospitalized with Rocephin and azithromycin. I do not believe she has acute pneumonia. Continue oral antibiotic at discharge (3) Chronic respiratory failure with hypoxia: She is on her baseline requirement of 4 L/min per nasal cannula (4) Elevated troponin: Appears to be supply/demand mismatch. Troponin is minimally elevated. No acute EKG changes. No chest pain (5) Atrial fibrillation: Paroxysmal. Occasionally rapid rate. She did require intravenous metoprolol this admission. Blood pressure was on the low side and hydralazine and amlodipine have been discontinued. Continue Eliquis and metoprolol. Telemetry (6) Hypertension: Blood pressure is on the low side. Continue metoprolol. Amlodipine and hydralazine have been discontinued. Losartan has been discontinued. (7) Hypothyroidism: Stable. Continue levothyroxine (8) COPD (chronic obstructive pulmonary disease): Stable. Continue current medical management (9) Diastolic heart failure: Chronic. No overt acute exacerbation. Continue current medical management. Monitor intake and output Plan Discharge to [facility] today, December 22. We will continue oral antibiotic for few more days Total Time Total Time Spent Total Time Spent (In Minutes): 45-minute Discharge Plan Discharge Items Patient Disposition: Transfer Half-Way Fac Reason For Visit: DIZZINESS, POSSIBLE PNEUMONIA Discharge Diagnosis: Paroxysmal atrial fibrillation with rapid ventricular rate, acute bronchitis, benign positional vertigo, hypotension Activity: Resume your previous activity Non-emergency contact: Primary Care Provider Call non-emergency contact if: your symptoms worsen [facility] - Diet: Regular and Heart Healthy Add Attending Provider Instructions: Hydralazine and amlodipine have been discontinued. Continue antibiotic azithromycin for a few more days for suspected bronchitis Pending Studies at Discharge: No Stand-Alone Forms: My [facility] Skilled Items Patient informed of condition?: Yes DNR: Yes Discharge Level of Care: Skilled Communicable Disease: No Discharge Prognosis: Stable Lines: None Urinary Catheter: No Medications and DC Order Prescriptions: New azithromycin 250 mg tablet 250 mg PO DAILY 4 Days Qty: 4 0RF Rx Instructions: start on day 2 of therapy Continued metoprolol succinate 100 mg tablet extended release 24 hr 100 mg PO QAM Qty: 90 3RF fluticasone propion-salmeterol [Advair Diskus] 100-50 mcg/dose blister with device 1 inh inhalation BID Qty: 60 3RF furosemide 20 mg tablet 20 mg PO QAM Qty: 90 3RF Rx Instructions: NEEDED FOR WEIGHT GAIN OF 3LBS/24HRS OR 5LBS/WEEK atorvastatin 20 mg tablet 20 mg PO HS Qty: 90 3RF sertraline 100 mg tablet 150 mg PO PM Qty: 135 3RF (DME) Oxygen Home Liters Per Minute See Dose Instructions .ROUTE .MEDSUPPLY Qty: 1 0RF Dose Instruction: As directed Rx Instructions: Portable concentrator due to arthritis and difficulty with changing the regulators. Also chronic disc disease and back pain make carrying current tanks unmanageable. (DME) Flutter Valve Device See Rx Instructions .ROUTE .MEDSUPPLY Qty: 1 0RF Rx Instructions: Use 2-3 times daily or as needed. Lifetime need. acetaminophen 500 mg tablet 500 mg PO Q4H MDD 3gm/24h PRN (Reason: pain/fever) ondansetron HCl 4 mg tablet 4 mg PO Q6H PRN (Reason: N/V) losartan 25 mg tablet 50 mg PO DAILY Eliquis 5 mg tablet 2.5 mg PO BID vit C,E,Zn,[id number] [PreserVision AREDS-2 (omega-3)] 1 cap PO BID cholecalciferol (vitamin D3) [Vitamin D3] 1,000 unit Tablet 1,000 unit PO QAM docusate sodium 100 mg capsule 100 mg PO QPM aspirin 81 mg Tablet,Delayed Release (Dr/Ec) 81 mg PO QAM omega 2-gmc-tmu-fish oil [Fish Oil] 1,000 mg (120 mg-180 mg) Capsule 1 cap PO QAM ascorbic acid (vitamin C) 500 mg Capsule 500 mg PO QAM (DME) Oxygen Home Liters Per Minute See Rx Instructions .Route Qty: 4 0RF Rx Instructions: As directed cranberry 400 mg Capsule 400 mg PO DAILY Rx Instructions: administer with a meal diphenhydramine HCl [Benadryl] 25 mg Capsule 25 mg PO HS Qty: 30 0RF thiamine HCl (vitamin B1) 100 mg Tablet 100 mg PO BID Qty: 60 0RF melatonin 3 mg Tablet 3 mg PO HS Qty: 30 0RF albuterol sulfate [Ventolin HFA] 90 mcg/actuation HFA aerosol inhaler 2 inh inhalation Q4H PRN (Reason: Wheezing) Rx Instructions: USE 2 INHALATIONS EVERY 4 HOURS NEEDED vitamin E (dl, acetate) 180 mg (400 unit) Capsule 360 mg PO DAILY buspirone 5 mg tablet 5 mg PO TID lidocaine 4 % Adhesive Patch,Medicated 1 patch TOPICAL DAILY PRN (Reason: Other) docusate sodium 100 mg Capsule 100 mg PO BID PRN (Reason: Constipation) amoxicillin 250 mg Capsule 1,500 mg PO .1H BEFORE PROCEDURE Rx Instructions: dental clotrimazole [Antifungal (clotrimazole)] 1 % Cream 1 applic TOPICAL DAILY meclizine 25 mg Tablet,Chewable 25 mg PO BID PRN (Reason: Dizziness) Systane (propylene glycol) 0.4-0.3 % Drops 1 drp ophthalmic (eye) DAILY PRN (Reason: Dry Eye(S)) diclofenac sodium [Voltaren] 1 % Gel 1 inch TOPICAL TID levothyroxine 150 mcg tablet 125 mcg PO DAILYBB Discontinued hydralazine 10 mg Tablet 10 mg PO TID amlodipine 5 mg tablet 5 mg PO BID Admission Data Admit Date/Time: 12/19/22 14:20 Attending Provider: Kobe Hauser Admit Provider: Jorge Sims Primary Care Provider: YUNG Pak Other Providers: Jorge Sims Coding Level of Care Code 84577 INP/OBS DISCH >30 MIN Diagnoses Dizziness R42 Cough R05.9 Chronic respiratory failure with hypoxia J96.11 Elevated troponin R79.89 Atrial fibrillation I48.91 Hypertension I10 Hypothyroidism E03.9 COPD (chronic obstructive pulmonary disease) J44.9 Diastolic heart failure I50.30
--- NOTE | 2022-12-22 12:21 | XRay Report ---
XR chest 1V portable HISTORY: hypoxia, bronchitis COMPARISON: Chest 12/19/2022. FINDINGS: No pneumothorax. No pleural effusions. The heart is mildly enlarged. Slightly rotated study . Mild interstitial thickening which is likely chronic. No evidence for pulmonary edema. Degenerative changes again noted within the shoulders with flattening of the right humeral head. This may represe nt superimposed avascular necrosis. This remains unchanged. Dense mitral annulus calcifications are p resent. No new focal lung consolidations to suggest pneumonia. IMPRESSION: 1. Stable cardiomegaly. 2. No evidence for pulmonary edema. 3. No new focal lung consolidations to suggest pneumonia. 4. 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 5. Mild chronic interstitial thickening.. ACT 112: Negative or not required by law. Electronically signed by: Elijah Turpin M.D. 12/22/2022 12:19 PM
[2022-12-22] MEDS: MELATONIN 3 MG TAB PO SCH (21:27)
[2022-12-22] MEDS: SERTRALINE HCL 50 MG TABLET PO SCH (21:27)
[2022-12-22] MEDS: ATORVASTATIN 20 MG TAB PO SCH (21:27)
[2022-12-23] MEDS: ONDANSETRON INJ 2 MG/ML 2 ML VIAL IV SCH ×2 (03:11→09:13)
[2022-12-23] MEDS: LEVOTHYROXINE SODIUM 125 MCG TABLET PO SCH (05:51)
[2022-12-23] MEDS: APIXABAN 2.5 MG TAB PO SCH (09:11)
[2022-12-23] MEDS: ASPIRIN 81 MG ECTAB PO SCH (09:11)
[2022-12-23] MEDS: busPIRone 5 MG TAB PO SCH ×2 (09:11→14:04)
[2022-12-23] MEDS: FLUTICASONE/VILANTEROL 100/25MCG 14 PUFFS/INHALER INH SCH (09:12)
[2022-12-23] MEDS: METOPROLOL SUCC 50MG EXT REL TAB PO SCH (09:13)
[2022-12-23] MEDS: FUROSEMIDE 20 MG TAB PO SCH (09:13)
[2022-12-23] MEDS: LOSARTAN POTASSIUM 50 MG TAB PO SCH (09:13)
--- NOTE | 2022-12-23 13:28 | Discharge Summary ---
Date of Service December 23, 2022 Admission HPI Per Admitting Provider Ruthy is a 87 year old female resident of [facility] with a PMH significant for vertigo, renal cell carcinoma S/P left radial and right partial nephrectomy in 1999 and 2001, hypertension, thyroidectomy, asthma/COPD on chronic 4L NC, atrial fibrillation on Eliquis, rheumatoid arthritis, aortic stenosis, paroxysmal supraventricular tachycardia, hyperlipidemia, and diastolic heart failure who presented to the [facility] on 12/19 with acute onset of dizziness this am. She remained stable in the ED. Labs were significant for a leukocytosis of 12 with neutrophil predominance of 10 and initial high sen trop of 18. ECG showed sinus rhythm with premature supraventricular complexes without acute ST segment or T-wave changes. CT of the head w/wo con was negative for acute findings. Chest xray was read as "1. Cardiomegaly and mild pulmonary edema. 2. Right lower lung airspace opacity may represent atelectasis, pneumonia, and/or aspiration.". The patient was initially given 25 mg PO antivert, 0.25 mg ativan, and 1L NSS without improvement in her symptoms. She was also given a dose of ceftriaxone and azithromycin for possible pneumonia. At the time of the exam the patient was lying in bed in no acute distress with her daughter/POA sitting bedside, history was obtained from both. She woke up this morning and tried to sit up to walk to the bathroom. As soon as she sat up she experienced severe dizziness with the room spinning and nausea. She had to lay back down immediately which improved her symptoms, but she was unable to change positions or move her head without the symptoms returning. She has a history of vertigo and has prn meclizine. She feels as though this is her usual vertigo, but more severe than her typical symptoms. Her daughter states that her vertigo is often exacerbated when she has other acute illnesses. She started to develop a productive cough with yellow sputum approximately 3 days ago. They deny the patient having a chronic cough at baseline with her COPD. She has not had increased O2 demands as she uses 4L NC at all times. When asked about possible aspiration, they deny any episodes while the patient eats. However, she does intermittently "choke" on her saliva. She denies recent new paresthesias/unilateral weakness, changes in vision, hearing, taste, or smell at rest, fever, chest pain, hemoptysis, abd pain, vomiting, dysuria, hematuria, melena, LE swelling, and recent trauma. When at rest in the ED she is without dizziness/vertigo. We discussed code status, they confirm that she is a DNR/DNI and her Daughter is her POA. Please refer to Dr. Sims's attestation for any changes to the treatment plan Principal Diagnosis Paroxysmal atrial fibrillation with rapid ventricular rate, Entero/rhinovirus, hypotension Discharge Exam Supposed to have been discharged yesterday but [facility] requested 2 step to be performed. She is requiring her baseline 4LPM O2 at rest and up to 6LPm O2 on exertion. Constitutional WD/WN, vitals as above Respiratory normal respiratory effort; no respiratory distress Auscultation: + wheezes (scattered expiratory); no crackles, no rales and no rhonchi Cardiovascular RRR, no murmur, no edema Gastrointestinal (Abdomen) normal bowel sounds, soft, nontender, no hepatosplenomegaly Psychiatric A+Ox3, euthymic affect Discharge Data Allergies Allergy/AdvReac Type Severity Reaction Status Date / Time bee venom protein (honey bee) Allergy Intermediate HIVES Verified 01/20/22 13:29 oxycodone Allergy Unknown Unknown Verified 01/20/22 13:29 Sulfa (Sulfonamide Allergy Unknown MOUTH Verified 01/20/22 13:29 Antibiotics) SWELLED/HIVES TO SULFA DRUGS, chemical hepatitis gabapentin Allergy Rash Verified 01/20/22 13:29 nitrofurantoin AdvReac Severe CAUSES Verified 01/20/22 13:29 HEPATITUS hydromorphone AdvReac Intermediate HALLUCINATI Verified 01/20/22 13:29 ONS Consultations 12/19/22 14:05 ED Decision to Admit Stat 12/19/22 14:08 ED Decision to Admit Stat Ordered Studies 12/19/22 10:55 CT angio head wo/w Stat IMPRESSION: 1. No acute intracranial abnormality. 2. Unremarkable CTA of the head. Hospital Course (1) Dizziness: Ruthy Vaughn is an 87 year old female admitted to [facility] from December 19-2022 due to dizziness and cough. She was diagnosed with rhino/enterovirus. She initially received one dose of antibiotics (ceftriaxone + azithromycin in the emergency room) but no further antibiotics were prescribed and she continued to clinically improve. Repeat CXR on 12/22 did not show any consolidation concerning for bacterial pneumonia therefore antibiotics were discontinued. Due to low blood pressure hydralazine has been discontinued and amlodipine decreased from twice a day to daily. She also had paroxysmal atrial fibrillation while here which broke with intravenous metoprolol, this is not a new diagnosis. On discharge her blood urea nitrogen was noted to be increasing. No GI bleed suspected from history. Suspect this may be from digested blood from her nose bleed. Hemoglobin is close to her chronic baseline on discharge 11.5. Recommend repeat CBC and BMP in the next 2-3 days after discharge. Planned discharge yesterday but [facility] requested 2 step to be performed. She is requiring her baseline 4LPM O2 at rest and up to 6LPm O2 on exertion. (2) Cough: (3) Chronic respiratory failure with hypoxia: (4) Elevated troponin: (5) Atrial fibrillation: (6) Hypertension: (7) Hypothyroidism: (8) COPD (chronic obstructive pulmonary disease): (9) Diastolic heart failure: Total Time Total Time Spent Total Time Spent (In Minutes): 45 Discharge Plan Discharge Items Patient Disposition: Personal [facility]dc Reason For Visit: DIZZINESS, POSSIBLE PNEUMONIA Discharge Diagnosis: Paroxysmal atrial fibrillation with rapid ventricular rate, Entero/rhinovirus, hypotension Activity: Resume your previous activity Non-emergency contact: Primary Care Provider Call non-emergency contact if: your symptoms worsen Follow-up/Referrals[facility] - Diet: Regular and Heart Healthy Addtl Attending Provider Instructions: You were admitted to [facility] from December 19-2022 due to dizziness and cough. You were diagnosed with rhino/enterovirus. You received one dose of antibiotics (ceftriaxone + azithromycin in the emergency room) but no further antibiotics were prescribed and you continued to improve. Repeat CXR on 12/22 did not show any consolidation concerning for bacterial pneumonia therefore antibiotics were discontinued. Due to low blood pressure hydralazine has been discontinued and your amlodipine from twice a day to daily. You also had paroxysmal atrial fibrillation while here which broke with intravenous meto prolol. On discharge your blood urea nitrogen was noted to be increasing. No GI bleed suspected from history. Suspect this may be from digested blood from your nose bleed. Hemoglobin is close to your baseline on discharge. Recommend repeat CBC and BMP in the next 2-3 days after discharge. Pending Studies at Discharge: No Stand-Alone Forms: [facility] (EPS), Smoking Cessation Skilled Items Patient informed of condition?: Yes DNR: Yes Discharge Level of Care: Skilled Communicable Disease: No Discharge Prognosis: Stable Lines: None Urinary Catheter: No Medications and DC Order Prescriptions: Continued metoprolol succinate 100 mg tablet extended release 24 hr 100 mg PO QAM Qty: 90 3RF fluticasone propion-salmeterol [Advair Diskus] 100-50 mcg/dose blister with device 1 inh inhalation BID Qty: 60 3RF furosemide 20 mg tablet 20 mg PO QAM Qty: 90 3RF Rx Instructions: NEEDED FOR WEIGHT GAIN OF 3LBS/24HRS OR 5LBS/WEEK atorvastatin 20 mg tablet 20 mg PO HS Qty: 90 3RF sertraline 100 mg tablet 150 mg PO PM Qty: 135 3RF (DME) Oxygen Home Liters Per Minute See Dose Instructions .ROUTE .MEDSUPPLY Qty: 1 0RF Dose Instruction: As directed Rx Instructions: Portable concentrator due to arthritis and difficulty with changing the regulators. Also chronic disc disease and back pain make carrying current tanks unmanageable. (DME) Flutter Valve Device See Rx Instructions .ROUTE .MEDSUPPLY Qty: 1 0RF Rx Instructions: Use 2-3 times daily or as needed. Lifetime need. acetaminophen 500 mg tablet 500 mg PO Q4H MDD 3gm/24h PRN (Reason: pain/fever) ondansetron HCl 4 mg tablet 4 mg PO Q6H PRN (Reason: N/V) losartan 25 mg tablet 50 mg PO DAILY Eliquis 5 mg tablet 2.5 mg PO BID vit C,E,Zn,Fm--ikd-zeax [PreserVision AREDS-2 (omega-3)] 1 cap PO BID cholecalciferol (vitamin D3) [Vitamin D3] 1,000 unit Tablet 1,000 unit PO QAM docusate sodium 100 mg capsule 100 mg PO QPM aspirin 81 mg Tablet,Delayed Release (Dr/Ec) 81 mg PO QAM omega 7-xug-evs-fish oil [Fish Oil] 1,000 mg (120 mg-180 mg) Capsule 1 cap PO QAM ascorbic acid (vitamin C) 500 mg Capsule 500 mg PO QAM (DME) Oxygen Home Liters Per Minute See Rx Instructions .Route Qty: 4 0RF Rx Instructions: As directed cranberry 400 mg Capsule 400 mg PO DAILY Rx Instructions: administer with a meal diphenhydramine HCl [Benadryl] 25 mg Capsule 25 mg PO HS Qty: 30 0RF thiamine HCl (vitamin B1) 100 mg Tablet 100 mg PO BID Qty: 60 0RF melatonin 3 mg Tablet 3 mg PO HS Qty: 30 0RF albuterol sulfate [Ventolin HFA] 90 mcg/actuation HFA aerosol inhaler 2 inh inhalation Q4H PRN (Reason: Wheezing) Rx Instructions: USE 2 INHALATIONS EVERY 4 HOURS NEEDED vitamin E (dl, acetate) 180 mg (400 unit) Capsule 360 mg PO DAILY buspirone 5 mg tablet 5 mg PO TID lidocaine 4 % Adhesive Patch,Medicated 1 patch TOPICAL DAILY PRN (Reason: Other) docusate sodium 100 mg Capsule 100 mg PO BID PRN (Reason: Constipation) amoxicillin 250 mg Capsule 1,500 mg PO .1H BEFORE PROCEDURE Rx Instructions: dental clotrimazole [Antifungal (clotrimazole)] 1 % Cream 1 applic TOPICAL DAILY meclizine 25 mg Tablet,Chewable 25 mg PO BID PRN (Reason: Dizziness) Systane (propylene glycol) 0.4-0.3 % Drops 1 drp ophthalmic (eye) DAILY PRN (Reason: Dry Eye(S)) diclofenac sodium 1 % Gel 1 inch TOPICAL TID levothyroxine 150 mcg tablet 125 mcg PO DAILYBB Changed amlodipine 5 mg tablet 5 mg PO DAILY Qty: 30 0RF Discontinued hydralazine 10 mg Tablet 10 mg PO TID Discharge Orders: Discharge Order (Routine); Ordered 12/23/22 Ordered By: Rafael Ibrahim Admission Data Admit Date/Time: 12/19/22 14:20 Attending Provider: Rafael Ibrahim Admit Provider: Jorge Sims Primary Care Provider: YUNG Pak Other Providers: Jorge Sims Other Interventions: Discharge Summary Assessment (RN) Last Done: 12/23/22 14:15 Coding Level of Care Code 47254 INP/OBS DISCH >30 MIN Diagnoses Dizziness R42 Cough R05.9 Chronic respiratory failure with hypoxia J96.11 Elevated troponin R79.89 Atrial fibrillation I48.91 Hypertension I10 Hypothyroidism E03.9 COPD (chronic obstructive pulmonary disease) J44.9 Diastolic heart failure I50.30
== END 2022-12-23 15:22 | disposition home or self-care (01) | DRG 149 ==
LOC: ED 10:45 → EDINP 14:20 → SUATTDRO 14:20 → 2W 12-20 14:34
DX: I35.0 Nonrheumatic aortic (valve) stenosis; I24.89 Other forms of acute ischemic heart disease; E03.9 Hypothyroidism, unspecified; I50.30 Unspecified diastolic (congestive) heart failure; J20.9 Acute bronchitis, unspecified; Z79.890 Hormone replacement therapy; Z66 Do not resuscitate; Z88.2 Allergy status to sulfonamides; I48.91 Unspecified atrial fibrillation; I13.0 Hypertensive heart and chronic kidney disease with heart failure and stage 1 through stage 4 chronic kidney disease, or unspecified chronic kidney disease; Z83.3 Family history of diabetes mellitus; Z85.528 Personal history of other malignant neoplasm of kidney; Z88.8 Allergy status to other drugs, medicaments and biological substances; Z88.5 Allergy status to narcotic agent; Z79.82 Long term (current) use of aspirin; J44.0 Chronic obstructive pulmonary disease with (acute) lower respiratory infection; Z79.01 Long term (current) use of anticoagulants; H81.10 Benign paroxysmal vertigo, unspecified ear; I47.10 Supraventricular tachycardia, unspecified; E78.5 Hyperlipidemia, unspecified; J96.11 Chronic respiratory failure with hypoxia; B34.8 Other viral infections of unspecified site

== ENCOUNTER 2023-01-12 06:20 | Inpatient (IN) ==
[2023-01-12] MEDS ORDERED: SODIUM CHLORIDE 0.9% 1,000 ML IV SCH (07:00)
--- NOTE | 2023-01-12 07:02 | Emergency Department Note ---
Impression & Plan CHF (congestive heart failure), Hypoxia ED Provider Note CHIEF COMPLAINT: Low oxygen saturations HISTORY OF PRESENT ILLNESS: This 87-year-old female patient presents to the emergency department with complaints of low oxygen saturations per the assisted living facility. The patient was having routine vital signs checked, saturations per nursing staff were 80%. Patient is asymptomatic and has no complaints of chest pain or shortness of breath. Upon EMS arrival, the patient saturations were verified on room air into the high 70s/low 80s. The patient was placed on nasal cannula oxygen with some modest improvement. Patient does have a mild dementia but remains asymptomatic. Patient was recently hospitalized for a bronchitis/pneumonia. She states she did vomit at that time. REVIEW OF SYSTEMS: A review of systems was performed with positives and pertinent negatives listed in the history of present illness. 10 systems were reviewed and are otherwise negative. ALLERGIES: see below MEDICATIONS: see below PMH: see below SOCIAL HISTORY: see below DDx: Pneumonia, PE, congestive heart failure, ACS, cardiac dysrhythmia among others PHYSICAL EXAM: Vital signs reviewed. noted to be hypoxic on room air General: Well-appearing 87-year-old female, in no significant distress. HEENT: No scleral icterus, PERRLA, neck supple. Moist mucous membranes Cardiovascular: Regular rate and rhythm, occasional ectopy. No extra sounds. Severe systolic ejection murmur. Pulmonary: Faint crackles to auscultation bilaterally, normal work of breathing. Abdomen: Soft, nontender, nondistended, positive bowel sounds. Musculoskeletal: Atraumatic, Mild peripheral edema. Neurologic: Patient awake alert and generally oriented. Mild pleasant confusion. Follows commands Skin: Warm, dry, no rash EXTERNAL medical records reviewed: EKG dated 12/20/2022, discharge summary dated 12/23/2022, prescription fill history EMERGENCY DEPARTMENT COURSE/MDM: This patient was evaluated and appeared to be in no significant distress. Patient's oxygenation was checked and was consistently in the mid 80s on room air. Patient was placed on nasal cannula oxygen and then transition to an OxyMask. Oxygen saturations did improve. Chest x-ray was performed and reveals cardiomegaly with pulmonary vascular congestion. EKG reveals no evidence of acute ischemic change. Patient's laboratory work is fairly reassuring. Patient was medicated with 40 mg of IV Lasix and nitroglycerin paste was applied to the anterior chest wall. Patient's case was discussed with the hospitalist service for admission and further management. MONITORING: An order for cardiac monitoring was placed and the patient is noted to be in a normal sinus rhythm at 72 beats per minute. RADIOLOGY: To my interpretation reveals cardiomegaly with pulmonary vascular congestion. Otherwise defer to radiology. EKG: To my interpretation reveals a sinus rhythm with PACs at 73 bpm. Left axis deviation with LVH, repolarization abnormality. QTc is 458. 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 LO Liver enzyme elevation IN THE PAST (CURRENTLY WNL) Hypothyroidism Macular degeneration Anxiety Atrial fibrillation DX YEARS AGO; FOLLOWS WITH DR. MALLOY Hypertension Hyperlipidemia Asthma WELL CONTROLLED PER PT Hypothyroidism Hypertension Atrial fibrillation Surgical History H/O partial nephrectomy right -2002 H/O left radical nephrectomy [address] [facility] [place] - MANY YEARS AGO - REASON? - NO STENTS/ANGIOPLASTY History of esophagogastroduodenoscopy (EGD) History of colonoscopy History of anesthesia reaction SLOW TO WAKE UP History of hysterectomy AND OOPHERECTOMY History of carpal tunnel release RT/ LT History of total knee replacement RT/LEFT Fusion of spine LUMBAR FUSION AND REVISION (2 SURGERIES) History of bladder surgery BLADDER TACK History of thyroidectomy, subtotal History of tooth extraction History of cataract surgery BL Family History Brother History of colon resection Colorectal cancer Diabetes Prostate cancer Sister Breast cancer Mother Diabetes Coronary heart disease Father Myocardial infarction Denies family history of Ovarian cancer Social History Smoking Status: Former smoker Second Hand Exposure: No; Do You Dip or Chew Tobacco: No; Hx Alcohol Use: No Hx Substance Use: No Preferred Language: Wolof Communication Ability: Effective Visual Impairment: No Limitations Hearing Ability: Normal Baseball Sewer Hand Required: No Beliefs That Will Affect Care: Spiritual Spiritual Healthcare Practices: christain Current Living Situation: [facility] Current Living Situation Comment: spouse lives in a home current occupational status: retired 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 How many Children do You have: 2 Feels Safe at Home: Yes Childhood Exposure to Second-Hand Smoke: No Diet: low salt caffeine: Yes (soda rarley) Dental Care, Regularly: No Physical Activity Frequency: Daily Seatbelt Use: always Sunscreen Use: Yes Assistive Devices: Oxygen - Continuous and Walker Allergies Allergies Allergy/AdvReac Type Severity Reaction Status Date / Time bee venom protein (honey bee) Allergy Intermediate HIVES Verified 01/20/22 13:29 oxycodone Allergy Unknown Unknown Verified 01/20/22 13:29 Sulfa (Sulfonamide Allergy Unknown MOUTH Verified 01/20/22 13:29 Antibiotics) SWELLED/HIVES TO SULFA DRUGS, chemical hepatitis gabapentin Allergy Rash Verified 01/20/22 13:29 nitrofurantoin AdvReac Severe CAUSES Verified 01/20/22 13:29 HEPATITUS hydromorphone AdvReac Intermediate HALLUCINATI Verified 01/20/22 13:29 ONS Home Meds Home Medications Medication Instructions Recorded Confirmed ascorbic acid (vitamin C) 500 mg 500 mg PO QAM 02/08/18 01/12/23 capsule aspirin 81 mg tablet,delayed 81 mg PO QAM 02/08/18 01/12/23 release cholecalciferol (vitamin D3) 25 1,000 unit PO QAM 02/08/18 01/12/23 mcg (1,000 unit) tablet (Vitamin D3) omega 5-oow-vfh-fish oil 1,000 mg 1 cap PO QAM 02/08/18 01/12/23 (120 mg-180 mg) capsule (Fish Oil) albuterol sulfate 90 mcg/actuation 2 inh inhalation Q4H PRN Wheezing 06/08/21 01/12/23 aerosol inhaler (Ventolin HFA) docusate sodium 100 mg capsule 100 mg PO QPM 06/22/21 01/12/23 cranberry 400 mg capsule 400 mg PO BID 11/09/21 01/12/23 acetaminophen 500 mg tablet 500 mg PO Q4H PRN pain/fever 12/02/21 01/12/23 ondansetron HCl 4 mg tablet 4 mg PO Q6H PRN N/V 12/02/21 01/12/23 vit C,E,Zn,Bu-depnh3-chg-zeax 1 cap PO BID 12/02/21 01/12/23 [PreserVision AREDS-2 (omega-3)] amoxicillin 250 mg capsule 1,500 mg PO .1H BEFORE PROCEDURE 12/19/22 01/12/23 buspirone 5 mg tablet 5 mg PO TID 12/19/22 01/12/23 clotrimazole 1 % topical cream 1 applic topical DAILY PRN rash 12/19/22 01/12/23 (Antifungal (clotrimazole)) diclofenac sodium 1 % topical gel See Rx Instructions .Route .COMPLEX 12/19/22 01/12/23 docusate sodium 100 mg capsule 100 mg PO BID PRN Constipation 12/19/22 01/12/23 lidocaine 4 % topical patch 1 patch topical DAILY 12/19/22 01/12/23 meclizine 25 mg chewable tablet 25 mg PO BID PRN Dizziness 12/19/22 01/12/23 peg 400-propylene glycol 0.4 %-0.3 1 drp ophthalmic (eye) DAILY PRN 12/19/22 01/12/23 % eye drops (Systane (propylene Dry Eye(S) glycol)) apixaban 2.5 mg tablet (Eliquis) 2.5 mg PO Q12H 01/12/23 01/12/23 levothyroxine 125 mcg tablet 125 mcg PO DAILY 01/12/23 01/12/23 vitamin E 268 mg (400 unit) capsule 268 mg PO DAILY 01/12/23 01/12/23 Previous Rx's Medication Instructions Recorded Oxygen Home #1 ea 10/19/18 Flutter Valve #1 ea 02/03/21 Oxygen Home #4 L 05/18/21 metoprolol succinate 100 mg 100 mg PO QAM #90 tabs 08/11/21 tablet,extended release 24 hr fluticasone 100 mcg-salmeterol 50 1 inh inhalation BID #60 ea 10/04/21 mcg/dose blistr powdr for inhalation (Advair Diskus) diphenhydramine HCl 25 mg capsule 25 mg PO HS #30 caps 11/15/21 (Benadryl) melatonin 3 mg tablet 3 mg PO HS #30 tabs 11/15/21 thiamine HCl (vitamin B1) 100 mg 100 mg PO BID #60 tabs 11/15/21 tablet atorvastatin 20 mg tablet 20 mg PO HS #90 tabs 01/18/22 sertraline 100 mg tablet 150 mg (1.5 x 100 mg) PO PM #135 05/05/22 tabs amlodipine 5 mg tablet (Norvasc) 5 mg PO BID #60 tabs 01/13/23 bumetanide 0.5 mg tablet 0.5 mg PO DAILY #30 tabs 01/13/23 losartan 50 mg tablet 50 mg PO BID #60 tabs 01/13/23 losartan 50 mg tablet 50 mg PO BID #60 tabs 01/13/23 Results & Data (ED) Vital Signs Vital Signs - 24 hr 01/12/23 06:26 01/12/23 06:30 01/12/23 06:30 Temperature 37.1 C Temperature Source Oral Pulse Rate 80 74 Pulse Rate [Apical] Pulse Rhythm Regular Pulse Rhythm [Apical] Pulse Strength Normal Pulse Strength [Apical] Respiratory Rate 20 Respiratory Effort / Characteristics Non-Labored Spontaneous Non-Labored Spontaneous Respiratory Depth Normal Normal Respiratory Pattern Regular Regular Blood Pressure 194/99 H Blood Pressure [Right Arm] Blood Pressure Mean 130 Blood Pressure Mean [Right Arm] Blood Pressure Position Lying Blood Pressure Position [Right Arm] Pulse Oximetry 94 Oxygen Delivery Method Oxymask Oxymask Oxygen Flow Rate 10 10 Sepsis Recent Fever Within 48 Hours No Sepsis New/Unexplained Change in Mental Status No Sepsis Action Taken by Nursing No Action Required Oxygen Flow Rate - Titration Pulse Oximetry Post Tiitration 01/12/23 06:30 01/12/23 06:30 01/12/23 06:51 Temperature Temperature Source Pulse Rate Pulse Rate [Apical] 72 Pulse Rhythm Pulse Rhythm [Apical] Regular Pulse Strength Pulse Strength [Apical] Normal Respiratory Rate 16 Respiratory Effort / Characteristics Non-Labored Spontaneous Respiratory Depth Normal Respiratory Pattern Regular Blood Pressure Blood Pressure [Right Arm] 198/94 H Blood Pressure Mean Blood Pressure Mean [Right Arm] 128 Blood Pressure Position Blood Pressure Position [Right Arm] Lying Pulse Oximetry 77 L 91 90 Oxygen Delivery Method Room Air Oxymask Oxymask Oxymask Oxygen Flow Rate 0 10 10 Sepsis Recent Fever Within 48 Hours Sepsis New/Unexplained Change in Mental Status Sepsis Action Taken by Nursing Oxygen Flow Rate - Titration 10 Pulse Oximetry Post Tiitration 94 01/12/23 06:54 01/12/23 07:00 01/12/23 09:00 Temperature Temperature Source Pulse Rate 72 Pulse Rate [Apical] 69 72 Pulse Rhythm Regular Pulse Rhythm [Apical] Regular Regular Pulse Strength Pulse Strength [Apical] Normal Normal Respiratory Rate 20 22 20 Respiratory Effort / Characteristics Non-Labored Spontaneous Non-Labored Spontaneous Respiratory Depth Normal Normal Respiratory Pattern Regular Regular Blood Pressure Blood Pressure [Right Arm] 208/97 H 182/85 H Blood Pressure Mean Blood Pressure Mean [Right Arm] 134 117 Blood Pressure Position Blood Pressure Position [Right Arm] Sitting Pulse Oximetry 95 92 93 Oxygen Delivery Method Oxymask Oxymask Oxymask Oxygen Flow Rate 10 10 10 Sepsis Recent Fever Within 48 Hours Sepsis New/Unexplained Change in Mental Status Sepsis Action Taken by Nursing Oxygen Flow Rate - Titration Pulse Oximetry Post Tiitration Home Medications Current Medication List: was personally reviewed by me Laboratory Data Attestation: I reviewed the patient's lab results. 01/13/23 05:52 01/13/23 05:52 Lab Results 01/12/23 01/12/23 01/12/23 Range/Units 06:20 06:57 07:14 WBC 11.45 H (4.8-10.8) K/ul RBC 4.00 L (4.20-5.40) M/uL Hgb 11.3 L (12.0-16.0) g/dl Hct 35.2 L (37.0-47.0) % MCV 88.0 (80.0-100.0) fL MCH 28.3 (25.0-34.0) pg MCHC 32.1 (32.0-36.0) g/dL RDW Std Deviation 46.5 H (36.4-46.3) fL RDW Coeff of Yanelis 14.6 H (11.5-14.5) % Plt Count 243 (130-400) K/uL MPV 9.8 (9.4-12.4) fL Immature Gran % (Auto) 0.7 % Neut % (Auto) 75.7 % Lymph % (Auto) 9.5 % Converse % (Auto) 9.3 % Eos % (Auto) 4.2 % Baso % (Auto) 0.6 % Neut # (Auto) 8.66 H (1.40-6.50) K/uL Lymph # (Auto) 1.09 L (1.20-3.40) K/uL Converse # (Auto) 1.07 H (0.11-0.59) K/uL Eos # (Auto) 0.48 (0.00-0.50) K/uL Baso # (Auto) 0.07 (0.00-0.20) K/uL Immature Gran # (Auto) 0.08 (0.01-0.20) K/uL PT 12.7 H (9.0-12.0) Seconds INR 1.2 H (0.9-1.1) APTT 34.0 H (21.0-31.0) Seconds PTT Ratio 1.2 ABG pH 7.45 (7.35-7.45) ABG pCO2 45 (35-46) mmHg ABG pO2 64 L (80-95) mmHg ABG HCO3 31 H (19-24) mmol/L ABG O2 Saturation 93.2 (90-95) % ABG Base Excess 6.4 H (-9-1.8) mEq/L Rolando Test Pos (Pos) Oxygen Given 8 Sodium 138 (136-145) mmol/L Potassium 3.9 (3.5-5.1) mmol/L Chloride 101 (98-107) mmol/L Carbon Dioxide 30 (21-32) mmol/L Anion Gap 7 (3-11) BUN 24 H (6-23) mg/dl Creatinine 1.07 (0.6-1.2) mg/dl Est Cr Clr Drug Dosing 31.5 ml/min Est GFR ( Amer) 53.7 ml/min Est GFR (Non-Af Amer) 46.3 ml/min BUN/Creatinine Ratio 22.4 H (10-20) Glucose 90 (70-99(Fasting)) mg/dl Calcium 9.4 (8.6-10.3) mg/dl Magnesium 1.8 (1.7-2.4) mg/dl Total Bilirubin 0.9 (0.2-1.0) mg/dl AST 12 L (13-39) U/L ALT 8 (7-52) U/L Alkaline Phosphatase 75 (34-104) U/L Troponin I High Sens 23.0 H (0-14) pg/ml Total Protein 6.9 (6.0-8.3) gm/dl Albumin 3.9 (3.4-5.0) gm/dl Globulin 3.0 (2.5-4.0) gm/dl Albumin/Globulin Ratio 1.3 (0.9-2) Adenovirus (PCR) Not Detected (NotDetected) B. pertussis DNA (PCR) Not Detected (NotDetected) B.parapertussis DNA PCR Not Detected (NotDetected) C. pneumoniae DNA (PCR) Not Detected (NotDetected) Coronavirus OC43 (PCR) Not Detected (NotDetected) Coronavirus HKU1 (PCR) Not Detected (NotDetected) Coronavirus 229E (PCR) Not Detected (NotDetected) SARS-CoV-2 (PCR) Not Detected (NotDetected) Coronavirus NL63 (PCR) Not Detected (NotDetected) Human Metapneumovir PCR Not Detected (NotDetected) Influenza Type A (PCR) Not Detected (NotDetected) Influenza Type B (PCR) Not Detected (NotDetected) M. pneumoniae (PCR) Not Detected (NotDetected) Parainfluenza 1 (PCR) Not Detected (NotDetected) Parainfluenza 2 (PCR) Not Detected (NotDetected) Parainfluenza 3 (PCR) Not Detected (NotDetected) Parainfluenza 4 (PCR) Not Detected (NotDetected) RSV (PCR) Not Detected (NotDetected) Entero/Rhino (PCR) Not Detected (NotDetected) Administered Medications Discontinued Medications Amlodipine Besylate (Amlodipine Besylate 5 Mg Tab) 5 mg PO DAILY [facility] Stop: 02/11/23 11:29 Last Admin: 01/12/23 15:53 Dose: 5 mg Documented By: BAUDILIO Amlodipine Besylate (Amlodipine Besylate 5 Mg Tab) 5 mg PO BID [facility] Stop: 02/11/23 20:59 Last Admin: 01/13/23 07:32 Dose: 5 mg Documented By: Admin: 01/12/23 22:32 Dose: Not Given Documented By: MIAN Apixaban (Apixaban 2.5 Mg Tab) 2.5 mg PO BID [facility] Stop: 02/11/23 11:29 Last Admin: 01/13/23 07:34 Dose: 2.5 mg Documented By: Admin: 01/12/23 20:52 Dose: Not Given Documented By: Admin: 01/12/23 15:53 Dose: 2.5 mg Documented By: BAUDILIO Aspirin (Aspirin 81 Mg Ectab) 81 mg PO QAM [facility] Stop: 02/11/23 11:29 Last Admin: 01/13/23 07:33 Dose: 81 mg Documented By: Admin: 01/12/23 15:53 Dose: 81 mg Documented By: BAUDILIO Atorvastatin Calcium (Atorvastatin 20 Mg Tab) 20 mg PO [facility] Stop: 02/11/23 20:59 Last Admin: 01/12/23 23:05 Dose: 20 mg Documented By: MITCH Buspirone HCl (Buspirone 5 Mg Tab) 5 mg PO TID [facility] Stop: 02/11/23 13:59 Last Admin: 01/13/23 13:45 Dose: 5 mg Documented By: Admin: 01/13/23 07:33 Dose: 5 mg Documented By: Admin: 01/12/23 22:32 Dose: Not Given Documented By: [facility] Admin: 01/12/23 18:50 Dose: 5 mg Documented By: BAUDILIO Diphenhydramine HCl (Diphenhydramine Capsule 25 Mg Cap) 25 mg PO [facility] Stop: 02/11/23 20:59 Last Admin: 01/12/23 23:05 Dose: Not Given Documented By: [facility] Docusate Sodium (Docusate Sodium 100 Mg Cap) 100 mg PO QPM [facility] Stop: 02/11/23 20:59 Last Admin: 01/12/23 23:05 Dose: 100 mg Documented By: [facility] Fish Oil ([place]-3 (Purified Fish Oil) 1 Gm Cap) 1 gm PO QAM [facility] Stop: 02/12/23 08:59 Last Admin: 01/13/23 07:32 Dose: 1 gm Documented By: BAUDILIO Fluticasone/Vilanterol (Fluticasone/Vilanterol 100/25mcg 14 Puffs/Inhaler) 1 puffs INH DAILY [facility]; Protocol Stop: 12/10/23 08:59 Last Admin: 01/13/23 07:34 Dose: 1 puffs Documented By: BAUDILIO Furosemide (Furosemide 40 Mg/4 Ml Vial) 40 mg IV ONE ONE Stop: 01/12/23 08:00 Last Admin: 01/12/23 08:32 Dose: 40 mg Documented By: AUTUMN Furosemide (Furosemide 40 Mg/4 Ml Vial) 40 mg IV [id number] [facility] Stop: 02/11/23 16:59 Last Admin: 01/13/23 17:10 Dose: Not Given Documented By: Admin: 01/13/23 08:58 Dose: 40 mg Documented By: Admin: 01/12/23 16:26 Dose: 40 mg Documented By: BAUDILIO Sodium Chloride (Nss) 1,000 mls @ 125 mls/hr IV .Q8H [facility] Stop: 02/11/23 06:59 Last Infusion: 01/12/23 15:48 Dose: Infused Documented By: Infusion: 01/12/23 10:50 Dose: 0 mls/hr Documented By: Admin: 01/12/23 07:34 Dose: 125 mls/hr Documented By: AUTUMN Lactated Ringer's (Lr) 250 mls @ 999 mls/hr IV .Q16M ONE Stop: 01/12/23 20:57 Last Infusion: 01/12/23 21:04 Dose: Infused Documented By: [facility] Admin: 01/12/23 20:48 Dose: 999 mls/hr Documented By: Sonia Lactated Ringer's (Lr) 500 mls @ 999 mls/hr IV .Q31M ONE Stop: 01/12/23 21:40 Last Infusion: 01/12/23 21:46 Dose: Infused Documented By: [facility] Admin: 01/12/23 21:15 Dose: 999 mls/hr Documented By: [facility] Magnesium Sulfate/Dextrose (Magnesium Sulfate / D5w) 1 gm in 100 mls @ 50 mls/hr IV Q2H [facility] Stop: 01/13/23 02:14 Last Infusion: 01/13/23 02:17 Dose: Infused Documented By: [facility] Admin: 01/13/23 00:17 Dose: 50 mls/hr Documented By: [facility] Infusion: 01/13/23 00:12 Dose: Infused Documented By: [facility] Admin: 01/12/23 22:12 Dose: 50 mls/hr Documented By: MITCH Albumin Human (Albumin 25%) 25 gm in 100 mls @ 50 mls/hr IV ONE ONE Stop: 01/13/23 00:19 Last Infusion: 01/13/23 01:00 Dose: Infused Documented By: Admin: 01/12/23 23:00 Dose: 50 mls/hr Documented By: MITCH Digoxin 250 mcg/ Syringe 10 mls @ 2 mls/min IV 2230 ONE Stop: 01/12/23 22:34 Last Admin: 01/12/23 22:45 Dose: 2 mls/min Documented By: MITCH Levothyroxine Sodium (Levothyroxine Sodium 125 Mcg Tablet) 125 mcg PO DAILYBB [facility] Stop: 02/12/23 06:29 Last Admin: 01/13/23 06:15 Dose: 125 mcg Documented By: MITCH Losartan Potassium (Losartan Potassium 50 Mg Tab) 50 mg PO BID [facility] Stop: 02/11/23 20:59 Last Admin: 01/13/23 07:33 Dose: 50 mg Documented By: Admin: 01/12/23 22:32 Dose: Not Given Documented By: MITCH Melatonin (Melatonin 3 Mg Tab) 3 mg PO HS [facility] Stop: 02/11/23 20:59 Last Admin: 01/12/23 23:05 Dose: 3 mg Documented By: MITCH Metoprolol Succinate (Metoprolol Succ 50mg Ext Rel Tab) 100 mg PO QAM [facility] Stop: 02/12/23 08:59 Last Admin: 01/13/23 07:32 Dose: 100 mg Documented By: BAUDILIO Metoprolol Tartrate (Metoprolol Tartrate 1 Mg/Ml Vial) 2.5 mg IV NOW STA Stop: 01/13/23 00:18 Last Admin: 01/13/23 00:30 Dose: 2.5 mg Documented By: MITCH Metoprolol Tartrate (Metoprolol Tartrate 1 Mg/Ml Vial) 2.5 mg IV NOW STA Stop: 01/13/23 00:50 Last Admin: 01/13/23 01:00 Dose: 2.5 mg Documented By: MITCH Metoprolol Tartrate (Metoprolol Tartrate 1 Mg/Ml Vial) 2.5 mg IV Q5M PRN PRN Reason: Tachycardia (HR > 120) Stop: 02/12/23 01:21 Last Admin: 01/13/23 06:31 Dose: 2.5 mg Documented By: Admin: 01/13/23 01:38 Dose: 2.5 mg Documented By: MITCH Miscellaneous (Remove Lidoderm Patch) 1 each N/A HS [facility] Stop: 02/11/23 20:59 Last Admin: 01/12/23 20:59 Dose: Not Given Documented By: MITCH Nitroglycerin (Nitroglycerin 2% Ointment 30gm Tube) 1 inch EXT NOW ONE Stop: 01/12/23 08:51 Last Admin: 01/12/23 08:53 Dose: 1 inch Documented By: AUTUMN Potassium Chloride (Potassium Chloride Crtab 20 Meq Tabcr) 40 meq PO NOW STA Stop: 01/13/23 08:50 Last Admin: 01/13/23 08:57 Dose: 40 meq Documented By: BAUDILIO Sertraline HCl (Sertraline Hcl 50 Mg Tablet) 150 mg PO PM [facility] Stop: 02/11/23 20:59 Last Admin: 01/12/23 23:04 Dose: 150 mg Documented By: MITCH Thiamine HCl (Thiamine Hcl 100 Mg Tab) 100 mg PO BID [facility] Stop: 02/11/23 20:59 Last Admin: 01/13/23 07:32 Dose: 100 mg Documented By: Admin: 01/12/23 23:04 Dose: 100 mg Documented By: MITCH Vitamin D (Cholecalciferol 1,000 Units 25 Mcg Tab) 1,000 units PO QAM [facility] Stop: 02/12/23 08:59 Last Admin: 01/13/23 07:33 Dose: 1,000 units Documented By: BAUDILIO Imaging Data Radiologist's Impression: Chest X-Ray 01/12/23 06:51 XR chest 1V portable HISTORY: 87 years-old Female Dyspnea acute short of breath COMPARISON: 12/22/2022 TECHNIQUE: AP view of the chest FINDINGS: Cardiac silhouette is enlarged. Interstitial coarsening with intermixed air space opacities. No pneumothorax. Small pleural effusions. Degenerative changes of the shoulders and spine with severe glenohumeral osteoarthritis and cortical collapse of the superior right humeral head. Unchanged sclerotic focus of the left proximal humerus. IMPRESSION: 1. Cardiomegaly with mixed interstitial and alveolar opacities suggestive of pulmonary edema. Multifocal pneumonia could appear similarly. 2. 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 ACT 112: Negative or not required by law. The above report was generated using voice recognition software. It may contain grammatical, syntax or spelling errors. Electronically signed by: Ayush Partida M.D. 01/12/2023 8:14 AM Discharge Plan Visit Data Chief Complaint: Shortness of Breath/Dyspnea Stated Complaint: SOB, Bronchitis, CHF ED Provider: Jennifer Gray Discharge Problem: CHF (congestive heart failure), Hypoxia Patient Disposition: Admitted As Inpatient Discharge Instructions Interventions: ED Discharge Assessment Last Done: 01/12/23 11:01 Discharge Problem: CHF (congestive heart failure) Qualifiers: Heart failure type: unspecified Heart failure chronicity: acute on chronic Q ualified Code(s): I50.9 - Heart failure, unspecified
[2023-01-12 07:18] LABS: Basophils # (auto) 0.07 K/uL (0.00-0.20); Basophils % (auto) 0.6 %; Eosinophils # (auto) 0.48 K/uL (0.00-0.50); Eosinophils % (auto) 4.2 %; Hematocrit (blood only) 35.2 % (37.0-47.0); Hemoglobin 11.3 g/dl (12.0-16.0); Immature Granulocytes # (auto) 0.08 K/uL (0.01-0.20); Immature Granulocytes % (auto) 0.7 %; Lymphocytes # (auto) 1.09 K/uL (1.20-3.40); Lymphocytes % (auto) 9.5 %; Mean Corpuscular Hemoglobin 28.3 pg (25.0-34.0); Mean Corpuscular Hgb Conc 32.1 g/dL (32.0-36.0); Mean Platelet Volume 9.8 fL (9.4-12.4); Monocytes # (auto) 1.07 K/uL (0.11-0.59); Monocytes % (auto) 9.3 %; Neutrophils # (auto) 8.66 K/uL (1.40-6.50); Neutrophils % (auto) 75.7 %; Platelet Count 243 K/uL (130-400); RDW Coefficient of Variation 14.6 % (11.5-14.5); RDW Standard Deviation 46.5 fL (36.4-46.3); White Blood Count 11.45 K/ul (4.8-10.8)
[2023-01-12 07:25] LABS: Base Excess ABG 6.4 mEq/L (-9-1.8); HCO3 ABG 31 mmol/L (19-24); Oxygen Saturation ABG 93.2 % (90-95); PCO2 ABG 45 mmHg (35-46); PO2 ABG 64 mmHg (80-95); pH ABG 7.45 (7.35-7.45)
[2023-01-12 07:25] LABS: Albumin Globulin Ratio 1.3 (0.9-2); Albumin Level 3.9 gm/dl (3.4-5.0); BUN Creatinine Ratio 22.4 (10-20); Bilirubin,Total 0.9 mg/dl (0.2-1.0); Calcium 9.4 mg/dl (8.6-10.3); Creatinine Clr Calc Pharmacy 31.5 ml/min; Est GFR (African American) 53.7 ml/min; Est GFR (Non-African American) 46.3 ml/min; Magnesium 1.8 mg/dl (1.7-2.4); Potassium 3.9 mmol/L (3.5-5.1); Total Protein 6.9 gm/dl (6.0-8.3)
[2023-01-12 07:40] LABS: INR 1.2 (0.9-1.1); Partial Thromboplastin Ratio 1.2; Prothrombin Time 12.7 Seconds (9.0-12.0)
[2023-01-12 07:45] LABS: Appearance Urine Clear (Clear); Bacteria Urine Automated Negative (Negative); Bilirubin Urine Negative (Negative); Blood Urine Negative (Negative); Cast Urine Automated 0 /lpf (0-5); Color Urine Yellow; Glucose Urine UA Negative (Negative); Ketones Urine Negative (Negative); Leukocyte Esterase Urine Trace (Negative); Nitrite Urine Negative (Negative); Protein Urine Negative (Negative); RBC Urine Automated 0-4 /hpf (0-4); Specific Gravity Urine 1.009 (1.000-1.030); Urobilinogen Urine Negative (Negative)
[2023-01-12 07:56] LABS: Adenovirus PCR Not Detected (NotDetected); Bordetella parapertussis PCR Not Detected (NotDetected); Bordetella pertussis PCR Not Detected (NotDetected); Chlamydia pneumoniae PCR Not Detected (NotDetected); Coronavirus 229E PCR Not Detected (NotDetected); Coronavirus CoV-2 (COVID19)PCR Not Detected (NotDetected); Coronavirus HKU1 PCR Not Detected (NotDetected); Coronavirus NL63 PCR Not Detected (NotDetected); Coronavirus OC43PCR Not Detected (NotDetected); Human Metapneumovirus PCR Not Detected (NotDetected); Influenza A PCR Not Detected (NotDetected); Influenza B PCR Not Detected (NotDetected); Mycoplasma pneumoniae PCR Not Detected (NotDetected); Parainfluenza Virus 1 PCR Not Detected (NotDetected); Parainfluenza Virus 2 PCR Not Detected (NotDetected); Parainfluenza Virus 3 PCR Not Detected (NotDetected); Parainfluenza Virus 4 PCR Not Detected (NotDetected); Respiratory Syncytial VirusPCR Not Detected (NotDetected); Rhinovirus/Enterovirus PCR Not Detected (NotDetected)
[2023-01-12] MEDS ORDERED: FUROSEMIDE 40 MG/4 ML VIAL IV ONE (07:59)
--- NOTE | 2023-01-12 08:16 | XRay Report ---
XR chest 1V portable HISTORY: 87 years-old Female Dyspnea acute short of breath COMPARISON: 12/22/2022 TECHNIQUE: AP view of the chest FINDINGS: Cardiac silhouette is enlarged. Interstitial coarsening with intermixed air space opacities. No pneumothorax. Small pleural effusions . Degenerative changes of the shoulders and spine with severe glenohumeral osteoarthritis and cortica l collapse of the superior right humeral head. Unchanged sclerotic focus of the left proximal humerus . IMPRESSION: 1. Cardiomegaly with mixed interstitial and alveolar opacities suggestive of pulmonary edema. Multifo tequila pneumonia could appear similarly. 2. 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 ACT 112: Negative or not required by law. The above report was generated using voice recognition software. It may contain grammatical, syntax o r spelling errors. Electronically signed by: Ayush Partida M.D. 01/12/2023 8:14 AM
[2023-01-12 08:40] LABS: Allen Test Pos (Pos)
[2023-01-12] MEDS ORDERED: NITROGLYCERIN 2% OINTMENT 30GM TUBE EXT ONE (08:50)
[2023-01-12] MEDS ORDERED: ACETAMINOPHEN 500 MG TAB PO PRN (11:02)
[2023-01-12] MEDS ORDERED: NON-FORMULARY MEDICATION (Flutter Valve device) SCH (11:02)
[2023-01-12] MEDS ORDERED: MAGNESIUM HYDROXIDE SUSP 30 ML UDC PO PRN (11:02)
[2023-01-12] MEDS ORDERED: DOCUSATE SODIUM 100 MG CAP PO PRN (11:02)
[2023-01-12] MEDS ORDERED: ALBUTEROL HFA 8 GM INHALER INH PRN (11:02)
[2023-01-12] MEDS ORDERED: POLYETHYLENE (MIRALAX) 17 GM PACK PO PRN (11:02)
[2023-01-12] MEDS ORDERED: MECLIZINE HCL 25 MG TAB PO PRN (11:12)
[2023-01-12] MEDS ORDERED: ARTIFICIAL TEARS OP PRN (11:16)
[2023-01-12] MEDS ORDERED: ONDANSETRON 4 MG OD TAB PO PRN (11:17)
[2023-01-12] MEDS ORDERED: LIDOCAINE 5% 1 PATCH TD PRN (11:22)
[2023-01-12] MEDS ORDERED: amLODIPine BESYLATE 5 MG TAB PO SCH (11:30)
--- NOTE | 2023-01-12 12:18 | XCELERA ---
[id number] [id number]
--- NOTE | 2023-01-12 13:04 | Electrocardiogram Report ---
Test Reason : Blood Pressure : / mmHG Vent. Rate : 078 BPM Atrial Rate : 078 BPM P-R Int : 144 ms QRS Dur : 100 ms QT Int : 402 ms P-R-T Axes : 000 -36 106 degrees QTc Int : 458 ms Sinus rhythm with Premature atrial complexes Left axis deviation Left ventricular hypertrophy with repolarization abnormality ( R in aVL ) Abnormal ECG When compared with ECG of 20-DEC-2022 08:49, Premature atrial complexes are now Present Confirmed by Kwabena Cruz ([id number]) on 01/12/2023 1:03:51 PM Referred By: [facility] Cas Campbell Confirmed By:Kwabena Cruz
[2023-01-12] MEDS ORDERED: DICLOFENAC SOD 1% GEL 100 GM TUBE EXT SCH (14:00)
[2023-01-12] MEDS: APIXABAN 2.5 MG TAB PO SCH ×2 (15:53→20:52)
[2023-01-12] MEDS: ASPIRIN 81 MG ECTAB PO SCH (15:53)
[2023-01-12] MEDS: FUROSEMIDE 40 MG/4 ML VIAL IV SCH (16:26)
--- NOTE | 2023-01-12 17:22 | History & Physical Report ---
Date of Service January 12, 2023 Assessment & Plan (1) CHF (congestive heart failure): Plan: Acute on chronic hypoxic respiratory failure present on admission due to decompensation of chronic diastolic CHF (acute on chronic HFpEF)either due to fluid retention, possibly from dietary sodium, or given her markedly elevated blood pressures, I do wonder if she had afterload mediated decompensation. Improving nicely with diuresiscontinue escalate home antihypertensive regimenincrease amlodipine to twice daily and losartan to twice daily given that she was showing a degree of decompensation in the face of escalating doses of LasixI wonder if she has trouble absorbing Lasix once she is in pulmonary edemaI wonder if she has a degree of intestinal edemawhen discharge, I will send on a comparable dose of Bumex instead echocardiogram fortunately stable troponin extremely mild given the situationmay just be baseline from LVH, possibly a little bit of wall stretch from the acute HFpEF continue Eliquis for anticoagulation updated daughter Admission and Anticipated Discharge Date Admission Date: January 12, 2023 History of Present Illness Chief Complaint: Hypoxia Primary Care Provider: [facility] patient is a very pleasant 87-year-old female presenting from [facility] with hypoxia. She absolutely denies any shortness of breath chest pain chest pressure feeling dyspnea etc.notes that routine vitals found her pulse ox to be quite low. They had applied oxygen, and brought her to the ER. Later in discussion with her daughter, it is clear that her team at [facility] had felt that she was in a degree of decompensated CHF, had been giving her additional diuretics, but she was continuing to progress towards CHF decompensation in spite of the additional diuretics, and they sent her to the ER accordingly. Whenever I see her she denies any shortness of breath chest pain chest heaviness fevers chills sweats etc. Later on revisit she seems pleasantly confused but feeling better. She is no longer on 10 L OxyMask she is sitting up in bed on 5 L nasal cannula. On phone call with her daughter her baseline right now has been 4 L. Allergies Allergy/AdvReac Type Severity Reaction Status Date / Time bee venom protein (honey bee) Allergy Intermediate HIVES Verified 01/20/22 13:29 oxycodone Allergy Unknown Unknown Verified 01/20/22 13:29 Sulfa (Sulfonamide Allergy Unknown MOUTH Verified 01/20/22 13:29 Antibiotics) SWELLED/HIVES TO SULFA DRUGS, chemical hepatitis gabapentin Allergy Rash Verified 01/20/22 13:29 nitrofurantoin AdvReac Severe CAUSES Verified 01/20/22 13:29 HEPATITUS hydromorphone AdvReac Intermediate HALLUCINATI Verified 01/20/22 13:29 ONS Home Medications Medication Instructions Recorded Confirmed Type ascorbic acid (vitamin C) 500 mg 500 mg PO QAM 02/08/18 01/12/23 History capsule aspirin 81 mg tablet,delayed 81 mg PO QAM 02/08/18 01/12/23 History release cholecalciferol (vitamin D3) 25 1,000 unit PO QAM 02/08/18 01/12/23 History mcg (1,000 unit) tablet (Vitamin D3) omega 0-ujs-qvx-fish oil 1,000 mg 1 cap PO QAM 02/08/18 01/12/23 History (120 mg-180 mg) capsule (Fish Oil) Oxygen Home #1 ea 10/19/18 01/20/22 Rx Flutter Valve #1 ea 02/03/21 01/20/22 Rx Oxygen Home #4 L 05/18/21 01/20/22 Rx albuterol sulfate 90 mcg/actuation 2 inh inhalation Q4H PRN Wheezing 06/08/21 01/12/23 History aerosol inhaler (Ventolin HFA) docusate sodium 100 mg capsule 100 mg PO QPM 06/22/21 01/12/23 History metoprolol succinate 100 mg 100 mg PO QAM #90 tabs 08/11/21 01/12/23 Rx tablet,extended release 24 hr fluticasone 100 mcg-salmeterol 50 1 inh inhalation BID #60 ea 10/04/21 01/12/23 Rx mcg/dose blistr powdr for inhalation (Advair Diskus) cranberry 400 mg capsule 400 mg PO BID 11/09/21 01/12/23 History diphenhydramine HCl 25 mg capsule 25 mg PO HS #30 caps 11/15/21 01/12/23 Rx (Benadryl) melatonin 3 mg tablet 3 mg PO HS #30 tabs 11/15/21 01/12/23 Rx thiamine HCl (vitamin B1) 100 mg 100 mg PO BID #60 tabs 11/15/21 01/12/23 Rx tablet acetaminophen 500 mg tablet 500 mg PO Q4H PRN pain/fever 12/02/21 01/12/23 History ondansetron HCl 4 mg tablet 4 mg PO Q6H PRN N/V 12/02/21 01/12/23 History vit C,E,Zn,Lz-qdczo3-xvi-zeax 1 cap PO BID 12/02/21 01/12/23 History [PreserVision AREDS-2 (omega-3)] furosemide 20 mg tablet 20 mg PO QAM #90 tabs 01/14/22 01/12/23 Rx atorvastatin 20 mg tablet 20 mg PO HS #90 tabs 01/18/22 01/12/23 Rx sertraline 100 mg tablet 150 mg (1.5 x 100 mg) PO PM #135 05/05/22 01/12/23 Rx tabs amoxicillin 250 mg capsule 1,500 mg PO .1H BEFORE PROCEDURE 12/19/22 01/12/23 History buspirone 5 mg tablet 5 mg PO TID 12/19/22 01/12/23 History clotrimazole 1 % topical cream 1 applic topical DAILY PRN rash 12/19/22 01/12/23 History (Antifungal (clotrimazole)) diclofenac sodium 1 % topical gel See Rx Instructions .Route .COMPLEX 12/19/22 01/12/23 History docusate sodium 100 mg capsule 100 mg PO BID PRN Constipation 12/19/22 01/12/23 History lidocaine 4 % topical patch 1 patch topical DAILY 12/19/22 01/12/23 History meclizine 25 mg chewable tablet 25 mg PO BID PRN Dizziness 12/19/22 01/12/23 History peg 400-propylene glycol 0.4 %-0.3 1 drp ophthalmic (eye) DAILY PRN 12/19/22 01/12/23 History % eye drops (Systane (propylene Dry Eye(S) glycol)) amlodipine 5 mg tablet 5 mg PO DAILY #30 tabs 12/23/22 01/12/23 Rx apixaban 2.5 mg tablet (Eliquis) 2.5 mg PO Q12H 01/12/23 01/12/23 History levothyroxine 125 mcg tablet 125 mcg PO DAILY 01/12/23 01/12/23 History losartan 50 mg tablet 50 mg PO DAILY 01/12/23 01/12/23 History vitamin E 268 mg (400 unit) capsule 268 mg PO DAILY 01/12/23 01/12/23 History Past Med/Surg History Medical History Chronic respiratory failure with hypoxia Cough Anemia Hypoxia Noncompliance Pulmonary edema Dyspnea Acute on chronic diastolic heart failure Acute and chronic respiratory failure with hypoxia Diastolic heart failure Paroxysmal SVT (supraventricular tachycardia) COPD (chronic obstructive pulmonary disease) Hypoxia Vertigo Depression Yeast dermatitis Sinus bradycardia Renal cell carcinoma Obesity Mitral insufficiency 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 LO Liver enzyme elevation IN THE PAST (CURRENTLY WNL) Hypothyroidism Macular degeneration Anxiety Atrial fibrillation DX YEARS AGO; FOLLOWS WITH DR. MALLOY Hypertension Hyperlipidemia Asthma WELL CONTROLLED PER PT Hypothyroidism Hypertension Atrial fibrillation Surgical History Fusion of spine H/O left radical nephrectomy H/O partial nephrectomy History of anesthesia reaction History of bladder surgery History of cardiac cath History of carpal tunnel release History of cataract surgery History of colonoscopy History of esophagogastroduodenoscopy (EGD) History of hysterectomy History of thyroidectomy, subtotal History of tooth extraction History of total knee replacement Family History Brother History of colon resection Colorectal cancer Diabetes Prostate cancer Sister Breast cancer Mother Diabetes Coronary heart disease Father Myocardial infarction Denies family history of Ovarian cancer Social History Smoking Status: Former smoker Second Hand Exposure: No; Do You Dip or Chew Tobacco: No; Hx Alcohol Use: No Hx Substance Use: No Preferred Language: Romanian Communication Ability: Effective Visual Impairment: No Limitations Hearing Ability: Normal Mushroom Grower Required: No Beliefs That Will Affect Care: Spiritual Spiritual Healthcare Practices: christain Current Living Situation: Intermediate Current Living Situation Comment: spouse lives in a home current occupational status: retired 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 How many Children do You have: 2 Other Information That Helps Us Care for You: No Feels Safe at Home: Yes Safety Concerns: Feels Safe At This Time Childhood Exposure to Second-Hand Smoke: No Diet: low salt caffeine: Yes (soda rarley) Dental Care, Regularly: No Physical Activity Frequency: Daily Seatbelt Use: always Sunscreen Use: Yes Assistive Devices: Glasses, Oxygen - Continuous and Walker Review of Systems Review of Systems: All systems reviewed & are unremarkable except as noted in HPI & below Physical Exam Physical Exam: Awake and alert loosely oriented but seems easily confused no distress. Lungs show diminished breath sounds with moderate Rales this morning better air entry and faint rales this evening, no accessory muscle use no rhonchi no wheezes good effort. Abdomen is soft. Extremities without cyanosis or clubbing probably trace to 1+ edema no calf tenderness. Skin without rashes pallor or icterus. Neuro without focal deficits. Results & Data Results & Data Vital Signs (Past 12 Hours) Vital Signs Temp Pulse Pulse Resp BP BP BP 01/12/23 17:14 181/88 H 01/12/23 15:57 01/12/23 15:57 98.2 F 74 20 249/122 H 204/118 H 01/12/23 11:02 78 20 01/12/23 11:00 78 20 162/89 H 01/12/23 09:00 72 20 182/85 H 01/12/23 07:00 69 22 208/97 H 01/12/23 06:54 72 20 01/12/23 06:51 01/12/23 06:30 72 16 198/94 H 01/12/23 06:30 01/12/23 06:30 98.8 F 74 20 194/99 H 01/12/23 06:30 01/12/23 06:26 80 Pulse Ox O2 Del Method O2 Flow Rate 01/12/23 17:14 01/12/23 15:57 Nasal Cannula 5 01/12/23 15:57 93 Nasal Cannula 5 01/12/23 11:02 93 Oxymask 10 01/12/23 11:00 93 Oxymask 10 01/12/23 09:00 93 Oxymask 10 01/12/23 07:00 92 Oxymask 10 01/12/23 06:54 95 Oxymask 10 01/12/23 06:51 90 Oxymask 10 01/12/23 06:30 91 Oxymask 10 01/12/23 06:30 77 L Room Air, Oxymask 0 01/12/23 06:30 94 Oxymask 10 01/12/23 06:30 Oxymask 10 01/12/23 06:26 Code Status & VTE Plan VTE Prophylaxis Plan VTE Prophylaxis will be ordered: Yes PG Care Time/CCT Total # of Minutes Spent Total Time Spent with Patient: Total time spent is greater than 50% in coordination of care (as documented) at patient's floor/unit and/or counseling patient: Coding Level of Care Code 05636 INT INP/OBS CARE 3/75MIN Diagnoses CHF (congestive heart failure) I50.9
[2023-01-12] MEDS: busPIRone 5 MG TAB PO SCH ×2 (18:50→22:32)
[2023-01-12] MEDS ORDERED: LACTATED RINGER'S 250 ML IV ONE (20:42)
[2023-01-12] MEDS ORDERED: diphenhydrAMINE Capsule 25 MG CAP PO SCH (21:00)
[2023-01-12] MEDS ORDERED: SERTRALINE HCL 50 MG TABLET PO SCH (21:00)
[2023-01-12] MEDS ORDERED: ATORVASTATIN 20 MG TAB PO SCH (21:00)
[2023-01-12] MEDS ORDERED: DOCUSATE SODIUM 100 MG CAP PO SCH (21:00)
[2023-01-12] MEDS ORDERED: MELATONIN 3 MG TAB PO SCH (21:00)
[2023-01-12] MEDS ORDERED: LACTATED RINGER'S 500 ML IV ONE (21:10)
[2023-01-12 21:40] LABS: Hemoglobin 11.6 g/dl (12.0-16.0)
[2023-01-12 21:58] LABS: Albumin Globulin Ratio 1.3 (0.9-2); Albumin Level 3.8 gm/dl (3.4-5.0); BUN Creatinine Ratio 19.3 (10-20); Calcium 9.3 mg/dl (8.6-10.3); Creatinine Clr Calc Pharmacy 31.7 ml/min; Est GFR (African American) 52.5 ml/min; Est GFR (Non-African American) 45.3 ml/min; Globulin 2.9 gm/dl (2.5-4.0); Magnesium 1.6 mg/dl (1.7-2.4); Phosphorus 2.6 mg/dl (2.5-4.9); Potassium 3.5 mmol/L (3.5-5.1); Total Protein 6.7 gm/dl (6.0-8.3)
[2023-01-12] MEDS: MAGNESIUM SULFATE / D5W 1 GM/100 ML BAG IV SCH (22:12)
[2023-01-12] MEDS ORDERED: ALBUMIN 25% 25 GM/100 ML VIAL IV ONE (22:20)
[2023-01-12] MEDS ORDERED: DIGOXIN 250 MCG in SYRINGE 9 ML IV ONE (22:30)
[2023-01-12] MEDS: LOSARTAN POTASSIUM 50 MG TAB PO SCH (22:32)
[2023-01-12] MEDS: amLODIPine BESYLATE 5 MG TAB PO SCH (22:32)
[2023-01-12] MEDS: THIAMINE HCL 100 MG TAB PO SCH (23:04)
[2023-01-13] MEDS ORDERED: METOPROLOL TARTRATE 1 MG/ML VIAL IV STA ×2 (00:17→00:49)
[2023-01-13] MEDS: MAGNESIUM SULFATE / D5W 1 GM/100 ML BAG IV SCH (00:17)
[2023-01-13] MEDS: METOPROLOL TARTRATE 1 MG/ML VIAL IV PRN ×2 (01:38→06:31)
--- NOTE | 2023-01-13 05:11 | Communication Note ---
Date of Service: January 13, 2023 Notified by nursing at 8:38 PM about pt's HR in the 140s following BM. Ordered H&H, BMP, Mg level, and 250cc bolus LR. Tachycardia persisted following bolus, so gave additional 500 cc bolus. Manual BP following boluses 106/72. Ordered loading dose of digoxin 250 mcg then rechecked. HR remained > 140s but BP now improved to 110s systolic. Ordered IV Lopressor 2.5 mg x3 doses, which improved HR to 110s. Resident Activity Tracking Resident Involvement: Resident Care Provided and Agent Licensing Clerk Coverage Note Care Provided: Adult Hospital Medicine
[2023-01-13] MEDS ORDERED: LEVOTHYROXINE SODIUM 125 MCG TABLET PO SCH (06:30)
[2023-01-13 06:42] LABS: Basophils # (auto) 0.06 K/uL (0.00-0.20); Basophils % (auto) 0.7 %; Eosinophils # (auto) 0.28 K/uL (0.00-0.50); Eosinophils % (auto) 3.5 %; Hematocrit (blood only) 33.1 % (37.0-47.0); Hemoglobin 10.7 g/dl (12.0-16.0); Immature Granulocytes # (auto) 0.07 K/uL (0.01-0.20); Immature Granulocytes % (auto) 0.9 %; Lymphocytes # (auto) 0.82 K/uL (1.20-3.40); Lymphocytes % (auto) 10.2 %; Mean Corpuscular Hgb Conc 32.3 g/dL (32.0-36.0); Mean Corpuscular Volume 86.6 fL (80.0-100.0); Mean Platelet Volume 9.8 fL (9.4-12.4); Monocytes # (auto) 0.95 K/uL (0.11-0.59); Monocytes % (auto) 11.8 %; Neutrophils # (auto) 5.85 K/uL (1.40-6.50); Neutrophils % (auto) 72.9 %; Platelet Count 230 K/uL (130-400); RDW Coefficient of Variation 14.4 % (11.5-14.5); RDW Standard Deviation 45.1 fL (36.4-46.3); Red Blood Count 3.82 M/uL (4.20-5.40); White Blood Count 8.03 K/ul (4.8-10.8)
[2023-01-13 06:56] LABS: BUN Creatinine Ratio 20.8 (10-20); Calcium 9.4 mg/dl (8.6-10.3); Creatinine Clr Calc Pharmacy 32.3 ml/min; Est GFR (African American) 54.3 ml/min; Est GFR (Non-African American) 46.8 ml/min; Potassium 3.5 mmol/L (3.5-5.1)
[2023-01-13] MEDS: THIAMINE HCL 100 MG TAB PO SCH (07:32)
[2023-01-13] MEDS: amLODIPine BESYLATE 5 MG TAB PO SCH (07:32)
[2023-01-13] MEDS: LOSARTAN POTASSIUM 50 MG TAB PO SCH (07:33)
[2023-01-13] MEDS: ASPIRIN 81 MG ECTAB PO SCH (07:33)
[2023-01-13] MEDS: busPIRone 5 MG TAB PO SCH ×2 (07:33→13:45)
[2023-01-13] MEDS: APIXABAN 2.5 MG TAB PO SCH (07:34)
[2023-01-13] MEDS ORDERED: POTASSIUM CHLORIDE CRTAB 20 MEQ TABCR PO STA (08:49)
[2023-01-13] MEDS: FUROSEMIDE 40 MG/4 ML VIAL IV SCH ×2 (08:58→17:10)
[2023-01-13] MEDS ORDERED: FLUTICASONE/VILANTEROL 100/25MCG 14 PUFFS/INHALER INH SCH (09:00)
[2023-01-13] MEDS ORDERED: METOPROLOL SUCC 50MG EXT REL TAB PO SCH (09:00)
[2023-01-13] MEDS ORDERED: FUROSEMIDE 20 MG TAB PO SCH (09:00)
[2023-01-13] MEDS ORDERED: CHOLECALCIFEROL 1,000 UNITS 25 MCG TAB PO SCH (09:00)
[2023-01-13] MEDS ORDERED: LOSARTAN POTASSIUM 50 MG TAB PO SCH (09:00)
[2023-01-13] MEDS ORDERED: OMEGA-3 (PURIFIED FISH OIL) 1 GM CAP PO SCH (09:00)
--- NOTE | 2023-01-13 13:00 | Electrocardiogram Report ---
Test Reason : Blood Pressure : / mmHG Vent. Rate : 139 BPM Atrial Rate : 141 BPM P-R Int : 000 ms QRS Dur : 100 ms QT Int : 328 ms P-R-T Axes : 000 -70 139 degrees QTc Int : 499 ms Atrial fibrillation with rapid ventricular response with premature ventricular or aberrantly conducte d complexes Left axis deviation Marked ST abnormality, possible inferolateral subendocardial injury Abnormal ECG When compared with ECG of 12-JAN-2023 06:28, Atrial fibrillation has replaced Sinus rhythm Vent. rate has increased BY [address] now depressed in Inferior leads ST now depressed in Anterior leads Confirmed by Kwabena Cruz ([id number]) on 01/13/2023 1:00:43 PM Referred By: [facility] Confirmed By:Kwabena Cruz
--- NOTE | 2023-01-13 13:24 | Communication Note ---
Date of Service: January 13, 2023 By CMS guidelines, a determination that the admission or continued stay is not medically necessary has been made by a member of the UR committee and a ph ysician for this hospital stay, therefore a Code 44 will be completed and the Inpatient admission will be changed to outpatient.
--- NOTE | 2023-01-13 19:19 | Discharge Summary ---
Date of Service January 13, 2023 Admission HPI Per Admitting Provider patient is a very pleasant 87-year-old female presenting from [facility] with hypoxia. She absolutely denies any shortness of breath chest pain chest pressure feeling dyspnea etc.notes that routine vitals found her pulse ox to be quite low. They had applied oxygen, and brought her to the ER. Later in discussion with her daughter, it is clear that her team at [facility] care had felt that she was in a degree of decompensated CHF, had been giving her additional diuretics, but she was continuing to progress towards CHF decompensation in spite of the additional diuretics, and they sent her to the ER accordingly. Whenever I see her she denies any shortness of breath chest pain chest heaviness fevers chills sweats etc. Later on revisit she seems pleasantly confused but feeling better. She is no longer on 10 L OxyMask she is sitting up in bed on 5 L nasal cannula. On phone call with her daughter her baseline right now has been 4 L. Principal Diagnosis acute on chronic HFpEF Discharge Exam Awake and alert pleasant no distress. HEENT normocephalic atraumatic mucous membranes moist. Lungs show overall clear good air entry very faint bibasilar rales no rhonchi no wheezes no respiratory distress good effort, down to 3 L nasal cannula. Neuro without focal deficits. Skin without rashes pallor or icterus. Discharge Data Allergies Allergy/AdvReac Type Severity Reaction Status Date / Time bee venom protein (honey bee) Allergy Intermediate HIVES Verified 01/20/22 13:29 oxycodone Allergy Unknown Unknown Verified 01/20/22 13:29 Sulfa (Sulfonamide Allergy Unknown MOUTH Verified 01/20/22 13:29 Antibiotics) SWELLED/HIVES TO SULFA DRUGS, chemical hepatitis gabapentin Allergy Rash Verified 01/20/22 13:29 nitrofurantoin AdvReac Severe CAUSES Verified 01/20/22 13:29 HEPATITUS hydromorphone AdvReac Intermediate HALLUCINATI Verified 01/20/22 13:29 ONS Consultations 01/12/23 08:50 ED Decision to Admit Stat Hospital Course (1) CHF (congestive heart failure): Acute on chronic hypoxic respiratory failure present on admission due to deco mpensation of chronic diastolic CHF (acute on chronic HFpEF)either due to fluid retention, possibly from dietary sodium, or given her markedly elevated blood pressures, I do wonder if she had afterload mediated decompensation (which would represent a form of hypertensive emergency). Improved nicely with diuresis and back to baseline oxygensafe for discharge escalated home antihypertensive regimenincreased amlodipine to twice daily and losartan to twice dailyfollow blood pressure closely as an outpatient given that she was showing a degree of decompensation in the face of escalating doses of LasixI wonder if she has trouble absorbing Lasix once she is in pulmonary edemaI wonder if she has a degree of intestinal edema I will send on a comparable dose of Bumex instead (takes 20 mg of Lasix, so we will send on a discharge dose of 0.5 mg of Bumex which should be equivalent; we will also have her take 1 mg tomorrow and Monday given that she still has a faint degree of rales, although she is definitely stable for discharge.) echocardiogram fortunately stable troponin extremely mild given the situationmay just be baseline from LVH, possibly a little bit of wall stretch from the acute HFpEF continue Eliquis for anticoagulation Total Time Total Time Spent Total Time Spent (In Minutes): <30 Discharge Plan Discharge Items Patient Disposition: Transfer Shelter Fac Reason For Visit: CHF Discharge Diagnosis: CHF - improving Activity: Resume your previous activity Non-emergency contact: Primary Care Provider Call non-emergency contact if: you have any medication questions and your symptoms worsen Follow-up/Referrals: YUNG Pak [Primary Care Provider] - Diet: Low Sodium (2gm) Addtl Attending Provider Instructions: CHF/acute pulmonary edema - your oxygen numbers were down due to fluid backing up in your lungs. While your heart looks essentially identical to the last echocardiogram from a year and a half ago, your heart muscle is fairly thick making it a little bit difficult to fill with blood, and your aortic valve is moderately tight creating a bit of a bottleneck for the blood to leave your heart. - This certainly makes you more prone to fluid being able to "traffic jam" back into your lungswhich is what happened prompting this admission, fortunately with additional diuretics your lungs are clearing nicely - the 2 main reasons with you that could have led to the fluid backup are: A) it is very common for people to accidentally get into more sodium than they realizebecause our kidneys will retain fluid in line with how much sodium you are taking and, if we taken a bit more sodium than we are used to, that can lead to acute fluid retention. This is the case with about 90% of people get hospitalized for pulmonary edema related to CHF. B) your blood pressures were running quite high yesterdayand while this was probably all reactive to the stress of being sick and being in the hospital, the numbers themselves were high enough to create some back pressure that could have been hard for your heart to overcome. - It would really be impossible to tease apart if it was purely 1 of those causes, the other of those causes, or both of those causestherefore it is prudent to prevent the next "CHF exacerbation" working both of them simultaneously - try to stay at less than 2000 mg of sodium on the day, and less than 500 mg of sodium in any 1 mealthis will go a long way to protect you against fluid retention - we have increased your amlodipine and losartan both to twice a day to reduce your blood pressure and take strain off of your heartdefinitely check your blood pressure 12 times a day for the next few weeks to see where your numbers are running (and to make sure that we do not need to adjust things up, but also to make sure that we did not "overshoot" and need to adjust things back down) in discussion with your daughter, it sounds that you were on increased doses of Lasix prior to getting admitted, but seems to be worsening anyway. This raises suspicion that you might of been having a difficult time absorbing the Lasix once he started to get swollen. A small but real percentage of people do get edema of their intestines whenever they start to develop pulmonary edema, and then unfortunately, sometimes people just are not able to absorb Lasix when they are taking it. Bumex (bumetanide) is an extremely similar diuretic, but it does generally absorb across swollen intestines easier. To that end, we will switch your Lasix over to Bumex. You normally take 20 mg of Lasixthis will equate to 0.5 mg of Bumexso we will simply switch this over as your maintenance dose. You do still sound a little bit fluid overloaded, so I would ask that you take 1 mg of Bumex tomorrow and Monday. To do: - Less than 2000 mg of sodium a day/less than 500 mg in any given meal - increase amlodipine to 5 mg twice a day - increase losartan to 50 mg twice a day - change Lasix 20 mg daily to Bumex 0.5 mg daily; for Monday and Monday, take 1 mg of Bumex - check blood pressure 12 times a day for the next few weeks to review with your PCP since we are escalating your blood pressure medicines - have lab work (BMP, basic metabolic panel) drawn somewhere between MondayWe of this coming week with results to your PCP to follow how you are doing with the diuretics, etc. Pending Studies at Discharge: No Stand-Alone Forms: My [facility] [employer], Smoking Cessation Skilled Items Patient informed of condition?: Yes DNR: Yes Discharge Level of Care: Other Communicable Disease: No Discharge Prognosis: Improving Lines: None Urinary Catheter: No Medications and DC Order Prescriptions: New losartan 50 mg Tablet 50 mg PO BID Qty: 60 0RF amlodipine [Norvasc] 5 mg Tablet 5 mg PO BID Qty: 60 0RF bumetanide 0.5 mg tablet 0.5 mg PO DAILY Qty: 30 0RF Continued metoprolol succinate 100 mg tablet extended release 24 hr 100 mg PO QAM Qty: 90 3RF fluticasone propion-salmeterol [Advair Diskus] 100-50 mcg/dose blister with device 1 inh inhalation BID Qty: 60 3RF atorvastatin 20 mg tablet 20 mg PO HS Qty: 90 3RF sertraline 100 mg tablet 150 mg PO PM Qty: 135 3RF (DME) Oxygen Home Liters Per Minute See Dose Instructions .ROUTE .MEDSUPPLY Qty: 1 0RF Dose Instruction: As directed Rx Instructions: Portable concentrator due to arthritis and difficulty with changing the regulators. Also chronic disc disease and back pain make carrying current tanks unmanageable. (DME) Flutter Valve Device See Rx Instructions .ROUTE .MEDSUPPLY Qty: 1 0RF Rx Instructions: Use 2-3 times daily or as needed. Lifetime need. acetaminophen 500 mg tablet 500 mg PO Q4H MDD 3gm/24h PRN (Reason: pain/fever) ondansetron HCl 4 mg tablet 4 mg PO Q6H PRN (Reason: N/V) vit C,E,Zn,Tv-ptpae5-yct-zeax [PreserVision AREDS-2 (omega-3)] 1 cap PO BID cholecalciferol (vitamin D3) [Vitamin D3] 1,000 unit Tablet 1,000 unit PO QAM docusate sodium 100 mg capsule 100 mg PO QPM aspirin 81 mg Tablet,Delayed Release (Dr/Ec) 81 mg PO QAM omega 4-hki-qoz-fish oil [Fish Oil] 1,000 mg (120 mg-180 mg) Capsule 1 cap PO QAM ascorbic acid (vitamin C) 500 mg Capsule 500 mg PO QAM (DME) Oxygen Home Liters Per Minute See Rx Instructions .Route Qty: 4 0RF Rx Instructions: As directed cranberry 400 mg Capsule 400 mg PO BID Rx Instructions: administer with a meal diphenhydramine HCl [Benadryl] 25 mg Capsule 25 mg PO HS Qty: 30 0RF thiamine HCl (vitamin B1) 100 mg Tablet 100 mg PO BID Qty: 60 0RF melatonin 3 mg Tablet 3 mg PO HS Qty: 30 0RF albuterol sulfate [Ventolin HFA] 90 mcg/actuation HFA aerosol inhaler 2 inh inhalation Q4H PRN (Reason: Wheezing) Rx Instructions: USE 2 INHALATIONS EVERY 4 HOURS NEEDED buspirone 5 mg tablet 5 mg PO TID lidocaine 4 % Adhesive Patch,Medicated 1 patch TOPICAL DAILY docusate sodium 100 mg Capsule 100 mg PO BID PRN (Reason: Constipation) amoxicillin 250 mg Capsule 1,500 mg PO .1H BEFORE PROCEDURE Rx Instructions: dental clotrimazole [Antifungal (clotrimazole)] 1 % Cream 1 applic TOPICAL DAILY PRN (Reason: rash) meclizine 25 mg Tablet,Chewable 25 mg PO BID PRN (Reason: Dizziness) Systane (propylene glycol) 0.4-0.3 % Drops 1 drp ophthalmic (eye) DAILY PRN (Reason: Dry Eye(S)) diclofenac sodium 1 % Gel See Rx Instructions .ROUTE .COMPLEX Rx Instructions: Apply topically to affected areas three times daily as needed for pain levothyroxine 125 mcg tablet 125 mcg PO DAILY vitamin E 268 mg (400 unit) Capsule 268 mg PO DAILY Eliquis 2.5 mg tablet 2.5 mg PO Q12H Changed losartan 50 mg tablet 50 mg PO BID Qty: 60 0RF Discontinued furosemide 20 mg tablet 20 mg PO QAM Qty: 90 3RF Rx Instructions: NEEDED FOR WEIGHT GAIN OF 3LBS/24HRS OR 5LBS/WEEK amlodipine 5 mg tablet 5 mg PO DAILY Qty: 30 0RF Discharge Orders: Discharge Order- CHF (Routine); Ordered 01/13/23 Ordered By: Ronaldo Ortiz Admission Data Admit Date/Time: 01/12/23 09:16 Attending Provider: Ronlado Ortiz Admit Provider: Ronaldo Ortiz Primary Care Provider: YUNG Pak Other Providers: Rafael Morel Other Interventions: Discharge Summary Assessment (RN) Last Done: 01/13/23 14:25 Coding Level of Care Code 48948 IN/OBS DISCH 30 MIN/LESS Diagnoses CHF (congestive heart failure) I50.9
== END 2023-01-13 19:36 | disposition home or self-care (01) | DRG 291 ==
LOC: ED 06:20 → EDINP 09:16 → 4W 11:01
DX: Z88.8 Allergy status to other drugs, medicaments and biological substances; Z79.899 Other long term (current) drug therapy; E87.1 Hypo-osmolality and hyponatremia; Z79.01 Long term (current) use of anticoagulants; Z79.51 Long term (current) use of inhaled steroids; E03.9 Hypothyroidism, unspecified; I13.0 Hypertensive heart and chronic kidney disease with heart failure and stage 1 through stage 4 chronic kidney disease, or unspecified chronic kidney disease; Z88.5 Allergy status to narcotic agent; I50.33 Acute on chronic diastolic (congestive) heart failure; J45.909 Unspecified asthma, uncomplicated; E78.00 Pure hypercholesterolemia, unspecified; Z79.890 Hormone replacement therapy; Z88.1 Allergy status to other antibiotic agents; H35.30 Unspecified macular degeneration; Z91.030 Bee allergy status; Z79.82 Long term (current) use of aspirin; I16.1 Hypertensive emergency; I48.91 Unspecified atrial fibrillation; J96.21 Acute and chronic respiratory failure with hypoxia; Z87.891 Personal history of nicotine dependence; F41.9 Anxiety disorder, unspecified; M19.90 Unspecified osteoarthritis, unspecified site; Z88.2 Allergy status to sulfonamides; F32.A Depression, unspecified; N18.9 Chronic kidney disease, unspecified

== ENCOUNTER 2023-02-19 07:55 | Inpatient (IN) ==
--- NOTE | 2023-02-19 08:11 | Emergency Department Note ---
Impression & Plan Atrial fibrillation with rapid ventricular response, Shortness of breath, Acute exacerbation of CHF (congestive heart failure), Non-ST elevation [place] (NSTEMI) ED Provider Note HISTORY OF PRESENT ILLNESS: Patient is an 88-year-old female presenting with reported shortness of breath. Patient states that she is at her baseline shortness of breath at this time. She states that the nurse at her facility and the doctor who facility were concerned that she was swelling in her lower extremities and had "fluid around my heart." Patient denies noticing any significant lower extremity edema. Reports she is on 6 L nasal cannula at baseline. Denies any chest pain. Denies any DVT or PE history. Denies any history of cardiac stents. She states that she feels like she is at her normal baseline. Denies any recent sick contact exposures. Denies any fevers. ROS: as above PHYSICAL EXAM: Constitutional: Patient appears in no acute distress. HENT: Head: Normocephalic and atraumatic. Eyes: EOMI, PERRL Mouth/Throat: Mucous membranes moist. Neck: Trachea midline. Neck supple. Cardiovascular: RRR, No rubs or gallops. Intact distal pulses. Continuous systolic murmur. Pulmonary/Chest: No respiratory distress. Breath sounds clear and equal bilaterally. No wheezes or rales. Abdominal: Abdomen soft, no tenderness, rebound or guarding. Musculoskeletal: No edema, tenderness or deformity noted. Skin: Warm and dry. No rash, erythema, pallor or cyanosis Psychiatric: Appropriate mood and affect for situation. Neurological: Alert and keenly responsive. CN II-XII grossly intact, moving all extremities equally and fully. MDM: - Vitals signs showed hypertension. - History obtained via patient. Patient presents with shortness of breath. Patient states that she was at her baseline shortness of breath this morning. Per nurses at the facility they were concerned that she had swelling in her lower extremities and fluid around her heart and lungs. Denies any chest pain. Denies any DVT or PE history. She feels symptom free on arrival to the ER. - Chronic conditions affecting care: COPD (on 4-6L NC); HTN; HLD; CKD; paroxysmal Afib; hypothyroidism - Differential diagnoses include, but are not limited to: Congestive heart failure; acute coronary syndrome; COPD/asthma exacerbation; pulmonary edema; pulmonary embolism; pneumonia; pneumothorax; viral syndrome - Order placed for continuous cardiac monitoring. At this time, monitor showed rate of 85 bpm with normal sinus rhythm, per my interpretation. - External medical records reviewed. Discharge summary dated 01/13/2023 was reviewed. Patient was admitted to the hospital for CHF exacerbation. She had presented with hypoxia. - EKG interpreted by myself showed normal sinus rhythm. Rate 74 bpm. QTc 466. No acute ischemic changes - Laboratory workup interpreted by myself showed normal WBC; stable electrolytes; elevated troponin (trop 37.1); elevated BNP (874) - CXR showed pulmonary vascular congestion, per my interpretation - VBG shows hypercarbia, but compensated. - Viral panel negative. - Repeat troponin elevated at 39.8 - Patient given 40 mg IV lasix. - UA showed evidence of infection. Given 2g IV rocephin - Repeat vitals showed patient's blood pressure dropped to 80s over 60s and her heart rate went up to the 130s. Repeat EKG showed A-fib with RVR with a heart rate of 137. She was given 500 cc of fluid. May be secondary to overdiuresis in the setting of her aortic stenosis. However, patient was also noted to be slightly hypoxic during the episode on her 4 L nasal cannula. - CT PE ordered to rule out any potential PE. - Discussed case with healthcare network pricing consultant and need for admission - Discussed case with hospitalist for admission. - Patient admitted to [facility] service for further evaluation and management. ASSESSMENT AND PLAN: Diagnosis: shortness of breath; CHF exacerbation; Afib with RVR; NSTEMI Plan: admit Past Med/Surg History Medical History (Updated 02/19/23 @ 11:51 by Joey Yang PA-C) Chronic respiratory failure with hypoxia Cough Anemia Hypoxia Noncompliance Pulmonary edema Dyspnea Acute on chronic diastolic heart failure Acute and chronic respiratory failure with hypoxia Diastolic heart failure Paroxysmal SVT (supraventricular tachycardia) COPD (chronic obstructive pulmonary disease) Hypoxia Vertigo Depression Yeast dermatitis Sinus bradycardia Renal cell carcinoma Obesity Mitral insufficiency 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 LO Liver enzyme elevation IN THE PAST (CURRENTLY WNL) Hypothyroidism Macular degeneration Anxiety Atrial fibrillation DX YEARS AGO; FOLLOWS WITH DR. MALLOY Hypertension Hyperlipidemia Asthma WELL CONTROLLED PER PT Hypothyroidism Hypertension Atrial fibrillation Surgical History (Updated 01/23/23 @ 00:10 by Background Day) H/O partial nephrectomy right -2002 H/O left radical nephrectomy 1999 History of cardiac cath [facility] [place] - MANY YEARS AGO - REASON? - NO STENTS/ANGIOPLASTY History of esophagogastroduodenoscopy (EGD) History of colonoscopy History of anesthesia reaction SLOW TO WAKE UP History of hysterectomy AND OOPHERECTOMY History of carpal tunnel release RT/ LT History of total knee replacement RT/LEFT Fusion of spine LUMBAR FUSION AND REVISION (2 SURGERIES) History of bladder surgery BLADDER TACK History of thyroidectomy, subtotal History of tooth extraction History of cataract surgery BL Family History Brother History of colon resection Colorectal cancer Diabetes Prostate cancer Sister Breast cancer Mother Diabetes Coronary heart disease Father Myocardial infarction Denies family history of Ovarian cancer Social History Smoking Status: Never smoker Second Hand Exposure: No; Do You Dip or Chew Tobacco: No; Hx Alcohol Use: No Hx Substance Use: No Preferred Language: French Communication Ability: Effective Visual Impairment: No Limitations Hearing Ability: Normal Regulatory Specialist Required: No Beliefs That Will Affect Care: Spiritual Spiritual Healthcare Practices: christain Current Living Situation: Detention Current Living Situation Comment: spouse lives in a home current occupational status: retired 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 How many Children do You have: 2 Feels Safe at Home: Yes Childhood Exposure to Second-Hand Smoke: No Diet: low salt caffeine: Yes (soda rarley) Dental Care, Regularly: No Physical Activity Frequency: Daily Seatbelt Use: always Sunscreen Use: Yes Assistive Devices: Oxygen - Continuous and Walker Allergies Allergies Allergy/AdvReac Type Severity Reaction Status Date / Time bee venom protein (honey bee) Allergy Intermediate HIVES Verified 01/20/22 13:29 oxycodone Allergy Unknown Unknown Verified 01/20/22 13:29 Sulfa (Sulfonamide Allergy Unknown MOUTH Verified 01/20/22 13:29 Antibiotics) SWELLED/HIVES TO SULFA DRUGS, chemical hepatitis gabapentin Allergy Rash Verified 01/20/22 13:29 nitrofurantoin AdvReac Severe CAUSES Verified 01/20/22 13:29 HEPATITUS hydromorphone AdvReac Intermediate HALLUCINATI Verified 01/20/22 13:29 ONS Home Meds Home Medications Medication Instructions Recorded Confirmed ascorbic acid (vitamin C) 500 mg 500 mg PO QAM 02/08/18 02/19/23 capsule aspirin 81 mg tablet,delayed 81 mg PO QAM 02/08/18 02/19/23 release cholecalciferol (vitamin D3) 25 1,000 unit PO QAM 02/08/18 02/19/23 mcg (1,000 unit) tablet (Vitamin D3) omega 5-nhx-awc-fish oil 1,000 mg 1 cap PO QAM 02/08/18 02/19/23 (120 mg-180 mg) capsule (Fish Oil) albuterol sulfate 90 mcg/actuation 2 inh inhalation Q4H PRN Wheezing 06/08/21 02/19/23 aerosol inhaler (Ventolin HFA) docusate sodium 100 mg capsule 100 mg PO QPM 06/22/21 02/19/23 cranberry 400 mg capsule 400 mg PO BID 11/09/21 02/19/23 acetaminophen 500 mg tablet 500 mg PO Q4H PRN pain/fever 12/02/21 02/19/23 ondansetron HCl 4 mg tablet 4 mg PO Q6H PRN N/V 12/02/21 02/19/23 amoxicillin 250 mg capsule 1,500 mg PO .1H BEFORE PROCEDURE 12/19/22 02/19/23 buspirone 5 mg tablet 5 mg PO TID 12/19/22 02/19/23 clotrimazole 1 % topical cream 1 applic topical DAILY PRN rash 12/19/22 02/19/23 (Antifungal (clotrimazole)) diclofenac sodium 1 % topical gel See Rx Instructions .Route .COMPLEX 12/19/22 02/19/23 docusate sodium 100 mg capsule 100 mg PO BID PRN Constipation 12/19/22 02/19/23 lidocaine 4 % topical patch 1 patch topical DAILY 12/19/22 02/19/23 meclizine 25 mg chewable tablet 25 mg PO BID PRN Dizziness 12/19/22 02/19/23 apixaban 2.5 mg tablet (Eliquis) 2.5 mg PO Q12H 01/12/23 02/19/23 levothyroxine 125 mcg tablet 125 mcg PO DAILY 01/12/23 02/19/23 vitamin E 268 mg (400 unit) capsule 268 mg PO DAILY 01/12/23 02/19/23 bumetanide 0.5 mg tablet 0.5 mg PO BID 02/19/23 02/19/23 dextromethorphan-guaifenesin 30 1 tab PO Q12H PRN Congestion 02/19/23 02/19/23 mg-600 mg tablet extended hr (Mucinex DM) vit C 250 mg-vit E 90 mg-zinc 40 1 tab PO BID 02/19/23 02/19/23 mg-copper 1 [id number] capsule (PreserVision AREDS-2) Previous Rx's Medication Instructions Recorded Oxygen Home #1 ea 10/19/18 Flutter Valve #1 ea 02/03/21 Oxygen Home #4 L 05/18/21 metoprolol succinate 100 mg 100 mg PO QAM #90 tabs 08/11/21 tablet,extended release 24 hr fluticasone 100 mcg-salmeterol 50 1 inh inhalation BID #60 ea 10/04/21 mcg/dose blistr powdr for inhalation (Advair Diskus) diphenhydramine HCl 25 mg capsule 25 mg PO HS #30 caps 11/15/21 (Benadryl) melatonin 3 mg tablet 3 mg PO HS #30 tabs 11/15/21 thiamine HCl (vitamin B1) 100 mg 100 mg PO BID #60 tabs 11/15/21 tablet atorvastatin 20 mg tablet 20 mg PO HS #90 tabs 01/18/22 sertraline 100 mg tablet 150 mg (1.5 x 100 mg) PO PM #135 05/05/22 tabs amlodipine 5 mg tablet (Norvasc) 5 mg PO BID #60 tabs 01/13/23 losartan 50 mg tablet 50 mg PO BID #60 tabs 01/13/23 Results & Data (ED) Vital Signs Vital Signs - 24 hr 02/19/23 08:04 02/19/23 08:08 02/19/23 08:09 Temperature 37.0 C Temperature Source Oral Pulse Rate 74 Pulse Rate from SpO2 Sensor Pulse Rhythm Regular Pulse Strength Normal Respiratory Rate 20 Respiratory Effort / Characteristics Non-Labored Spontaneous Non-Labored Respiratory Depth Normal Normal Respiratory Pattern Regular Regular Blood Pressure 162/91 H Blood Pressure Mean 114 Blood Pressure Position Sitting Pulse Oximetry 94 96 Oxygen Delivery Method Nasal Cannula Nasal Cannula Oxygen Flow Rate 4 4 Sepsis Recent Fever Within 48 Hours No Sepsis New/Unexplained Change in Mental Status No Sepsis Action Taken by Nursing No Action Required 02/19/23 08:10 02/19/23 08:12 02/19/23 08:30 Temperature Temperature Source Pulse Rate 71 66 68 Pulse Rate from SpO2 Sensor 68 Pulse Rhythm Regular Pulse Strength Respiratory Rate 20 21 Respiratory Effort / Characteristics Respiratory Depth Respiratory Pattern Blood Pressure 141/70 H Blood Pressure Mean 93 Blood Pressure Position Pulse Oximetry 94 92 Oxygen Delivery Method Nasal Cannula Oxygen Flow Rate 4 Sepsis Recent Fever Within 48 Hours Sepsis New/Unexplained Change in Mental Status Sepsis Action Taken by Nursing 02/19/23 09:00 02/19/23 09:30 02/19/23 10:00 Temperature Temperature Source Pulse Rate 67 61 61 Pulse Rate from SpO2 Sensor 66 58 L 61 Pulse Rhythm Pulse Strength Respiratory Rate 18 22 22 Respiratory Effort / Characteristics Respiratory Depth Respiratory Pattern Blood Pressure 157/78 H 154/78 H 167/78 H Blood Pressure Mean 104 103 107 Blood Pressure Position Pulse Oximetry 94 91 93 Oxygen Delivery Method Oxygen Flow Rate Sepsis Recent Fever Within 48 Hours Sepsis New/Unexplained Change in Mental Status Sepsis Action Taken by Nursing 02/19/23 10:30 02/19/23 11:05 02/19/23 11:07 Temperature Temperature Source Pulse Rate 64 129 H 138 H Pulse Rate from SpO2 Sensor 63 122 H 127 H Pulse Rhythm Pulse Strength Respiratory Rate 22 13 22 Respiratory Effort / Characteristics Respiratory Depth Respiratory Pattern Blood Pressure 199/93 H 70/49 L 81/58 L Blood Pressure Mean 128 56 65 Blood Pressure Position Pulse Oximetry 96 96 97 Oxygen Delivery Method Oxygen Flow Rate Sepsis Recent Fever Within 48 Hours Sepsis New/Unexplained Change in Mental Status Sepsis Action Taken by Nursing 02/19/23 11:11 02/19/23 11:12 02/19/23 11:22 Temperature Temperature Source Pulse Rate 121 H 127 H 109 H Pulse Rate from SpO2 Sensor 120 H 103 H Pulse Rhythm Pulse Strength Respiratory Rate 15 21 Respiratory Effort / Characteristics Respiratory Depth Respiratory Pattern Blood Pressure 74/50 L 70/53 L Blood Pressure Mean 58 58 Blood Pressure Position Pulse Oximetry 96 92 Oxygen Delivery Method Oxygen Flow Rate Sepsis Recent Fever Within 48 Hours Sepsis New/Unexplained Change in Mental Status Sepsis Action Taken by Nursing 02/19/23 11:25 02/19/23 11:29 02/19/23 11:30 Temperature Temperature Source Pulse Rate 104 H 115 H 119 H Pulse Rate from SpO2 Sensor 99 H 116 H 117 H Pulse Rhythm Pulse Strength Respiratory Rate 18 19 17 Respiratory Effort / Characteristics Respiratory Depth Respiratory Pattern Blood Pressure 96/60 L 87/59 L 113/76 Blood Pressure Mean 72 68 88 Blood Pressure Position Pulse Oximetry 93 95 92 Oxygen Delivery Method Oxygen Flow Rate Sepsis Recent Fever Within 48 Hours Sepsis New/Unexplained Change in Mental Status Sepsis Action Taken by Nursing Laboratory Data 02/19/23 08:10 02/19/23 08:10 Lab Results 02/19/23 02/19/23 02/19/23 Range/Units 08:10 10:00 10:18 WBC 9.98 (4.8-10.8) K/ul RBC 3.90 L (4.20-5.40) M/uL Hgb 10.7 L (12.0-16.0) g/dl Hct 33.5 L (37.0-47.0) % MCV 85.9 (80.0-100.0) fL MCH 27.4 (25.0-34.0) pg MCHC 31.9 L (32.0-36.0) g/dL RDW Std Deviation 51.1 H (36.4-46.3) fL RDW Coeff of Yanelis 16.4 H (11.5-14.5) % Plt Count 211 (130-400) K/uL MPV 10.3 (9.4-12.4) fL Immature Gran % (Auto) 0.4 % Neut % (Auto) 73.5 % Lymph % (Auto) 10.4 % [place] % (Auto) 10.2 % Eos % (Auto) 4.6 % Baso % (Auto) 0.9 % Neut # (Auto) 7.33 H (1.40-6.50) K/uL Lymph # (Auto) 1.04 L (1.20-3.40) K/uL [place] # (Auto) 1.02 H (0.11-0.59) K/uL Eos # (Auto) 0.46 (0.00-0.50) K/uL Baso # (Auto) 0.09 (0.00-0.20) K/uL Immature Gran # (Auto) 0.04 (0.01-0.20) K/uL PT 13.4 H (9.0-12.0) Seconds INR 1.2 H (0.9-1.1) VBG pH 7.41 (7.36-7.41) VBG pCO2 51 H (38-50) mmHg VBG pO2 34 mmHg VBG HCO3 32 mmol/L VBG O2 Saturation < 60.0 % VBG Base Excess 6.3 mEq/L Sodium 140 (136-145) mmol/L Potassium 3.6 (3.5-5.1) mmol/L Chloride 102 (98-107) mmol/L Carbon Dioxide 32 (21-32) mmol/L Anion Gap 6 (3-11) BUN 28 H (6-23) mg/dl Creatinine 1.01 (0.6-1.2) mg/dl Est Cr Clr Drug Dosing 33.4 ml/min Est GFR ( Amer) 57.2 ml/min Est GFR (Non-Af Amer) 49.3 ml/min BUN/Creatinine Ratio 27.7 H (10-20) Glucose 102 H (70-99(Fasting)) mg/dl Calcium 9.7 (8.6-10.3) mg/dl Magnesium 1.8 (1.7-2.4) mg/dl Total Bilirubin 1.3 H (0.2-1.0) mg/dl AST 18 (13-39) U/L ALT 9 (7-52) U/L Alkaline Phosphatase 64 (34-104) U/L Troponin I High Sens 37.1 H 39.8 H (0-14) pg/ml B-Natriuretic Peptide 874 H (0-100) pg/ml Total Protein 6.7 (6.0-8.3) gm/dl Albumin 4.1 (3.4-5.0) gm/dl Globulin 2.6 (2.5-4.0) gm/dl Albumin/Globulin Ratio 1.6 (0.9-2) Urine Color Yellow Urine Appearance Clear (Clear) Urine pH 7.5 (4.5-7.5) Ur Specific [place] 1.012 (1.000-1.030) Urine Protein Negative (Negative) Urine Glucose (UA) Negative (Negative) Urine Ketones Negative (Negative) Urine Blood Negative (Negative) Urine Nitrite Positive A (Negative) Urine Bilirubin Negative (Negative) Urine Urobilinogen Negative (Negative) Ur Leukocyte Esterase 2+ H (Negative) Urine WBC (Auto) 5-10 H (0-5) /hpf Urine RBC (Auto) 0-4 (0-4) /hpf U Hyaline Cast (Auto) 0 (0-5) /lpf U Epithel Cells (Auto) >30 H (0-5) /lpf Urine Bacteria (Auto) 4+ H (Negative) Adenovirus (PCR) Not Detected (NotDetected) B. pertussis DNA (PCR) Not Detected (NotDetected) B.parapertussis DNA PCR Not Detected (NotDetected) C. pneumoniae DNA (PCR) Not Detected (NotDetected) Coronavirus OC43 (PCR) Not Detected (NotDetected) Coronavirus HKU1 (PCR) Not Detected (NotDetected) Coronavirus 229E (PCR) Not Detected (NotDetected) SARS-CoV-2 (PCR) Not Detected (NotDetected) Coronavirus NL63 (PCR) Not Detected (NotDetected) Human Metapneumovir PCR Not Detected (NotDetected) Influenza Type A (PCR) Not Detected (NotDetected) Influenza Type B (PCR) Not Detected (NotDetected) M. pneumoniae (PCR) Not Detected (NotDetected) Parainfluenza 1 (PCR) Not Detected (NotDetected) Parainfluenza 2 (PCR) Not Detected (NotDetected) Parainfluenza 3 (PCR) Not Detected (NotDetected) Parainfluenza 4 (PCR) Not Detected (NotDetected) RSV (PCR) Not Detected (NotDetected) Entero/Rhino (PCR) Not Detected (NotDetected) Administered Medications Discontinued Medications Furosemide (Furosemide 40 Mg/4 Ml Vial) 40 mg IV ONE ONE Stop: 02/19/23 09:17 Last Admin: 02/19/23 09:25 Dose: 40 mg Documented By: RIGO Ceftriaxone Sodium (Rocephin) 2,000 mg in 50 mls @ 100 mls/hr IV NOW STA Stop: 02/19/23 10:51 Last Infusion: 02/19/23 11:37 Dose: Infused Documented By: Admin: 02/19/23 10:47 Dose: 100 mls/hr Documented By: RIGO Amiodarone HCl/Dextrose (Nexterone / D5w) 150 mg in 100 mls @ 600 mls/hr IV NOW STA Stop: 02/19/23 11:20 Last Infusion: 02/19/23 11:37 Dose: Infused Documented By: RIGO Co-signed By: XAVIER Admin: 02/19/23 11:16 Dose: 600 mls/hr Documented By: RIGO Co-signed By: SAMI Imaging Data Radiologist's Impression: Chest X-Ray 02/19/23 08:08 SINGLE VIEW CHEST CLINICAL HISTORY: Dyspnea FINDINGS: An AP, portable, upright chest radiograph is compared to study dated 01/12/2023 and correlated with chest CT dated 06/08/2021. The examination is degraded by portable technique and patient rotation. The heart is enlarged noting atherosclerotic calcification of the thoracic aorta. There is pulmonary vascular congestion. The mitral annulus is calcified. Chronic interstitial thickening is similar to previous. Foci of parenchymal scarring are seen throughout both lungs. No large pleural effusion or pneumothorax is identified. The skeletal structures are osteopenic. The bony thorax is grossly intact. Advanced arthritic change is seen in the shoulders. There is advanced degenerative change noted in the thoracic spine. Fusion hardware is seen in the lumbar spine. A benign-appearing chondroid lesion is again seen in the left proximal humerus. Cholecystectomy clips are noted. IMPRESSION: 1. Cardiomegaly with pulmonary vascular congestion. 2. No airspace consolidation or large pleural effusion is identified. ACT 112: Negative or not required by law. Electronically signed by: Brock Lou M.D. 02/19/2023 8:30 AM Discharge Plan Visit Data Chief Complaint: Shortness of Breath/Dyspnea ED Provider: Yana Laura Discharge Problem: Atrial fibrillation with rapid ventricular response, Shortness of breath, Acute exacerbation of CHF (congestive heart failure), Non-ST elevation [place] (NSTEMI) Forms Stand Alone Forms: [employer] Prescriptions Prescriptions: No Action metoprolol succinate 100 mg tablet extended release 24 hr 100 mg PO QAM Qty: 90 3RF fluticasone propion-salmeterol [Advair Diskus] 100-50 mcg/dose blister with device 1 inh inhalation BID Qty: 60 3RF atorvastatin 20 mg tablet 20 mg PO HS Qty: 90 3RF sertraline 100 mg tablet 150 mg PO PM Qty: 135 3RF (DME) Oxygen Home Liters Per Minute See Dose Instructions .ROUTE .MEDSUPPLY Qty: 1 0RF Dose Instruction: As directed Rx Instructions: Portable concentrator due to arthritis and difficulty with changing the regulators. Also chronic disc disease and back pain make carrying current tanks unmanageable. (DME) Flutter Valve Device See Rx Instructions .ROUTE .MEDSUPPLY Qty: 1 0RF Rx Instructions: Use 2-3 times daily or as needed. Lifetime need. acetaminophen 500 mg tablet 500 mg PO Q4H MDD 3gm/24h PRN (Reason: pain/fever) ondansetron HCl 4 mg tablet 4 mg PO Q6H PRN (Reason: N/V) cholecalciferol (vitamin D3) [Vitamin D3] 1,000 unit Tablet 1,000 unit PO QAM docusate sodium 100 mg capsule 100 mg PO QPM aspirin 81 mg Tablet,Delayed Release (Dr/Ec) 81 mg PO QAM omega 2-dke-jqh-fish oil [Fish Oil] 1,000 mg (120 mg-180 mg) Capsule 1 cap PO QAM ascorbic acid (vitamin C) 500 mg Capsule 500 mg PO QAM (DME) Oxygen Home Liters Per Minute See Rx Instructions .Route Qty: 4 0RF Rx Instructions: As directed cranberry 400 mg Capsule 400 mg PO BID Rx Instructions: administer with a meal diphenhydramine HCl [Benadryl] 25 mg Capsule 25 mg PO HS Qty: 30 0RF thiamine HCl (vitamin B1) 100 mg Tablet 100 mg PO BID Qty: 60 0RF melatonin 3 mg Tablet 3 mg PO HS Qty: 30 0RF Mucinex DM 30-600 mg Tablet Extended Release 12 Hr 1 tab PO Q12H PRN (Reason: Congestion) bumetanide 0.5 mg tablet 0.5 mg PO BID PreserVision AREDS-2 250-90-40-1 mg Capsule 1 tab PO BID albuterol sulfate [Ventolin HFA] 90 mcg/actuation HFA aerosol inhaler 2 inh inhalation Q4H PRN (Reason: Wheezing) Rx Instructions: USE 2 INHALATIONS EVERY 4 HOURS NEEDED buspirone 5 mg tablet 5 mg PO TID lidocaine 4 % Adhesive Patch,Medicated 1 patch TOPICAL DAILY MDD Please remove at bedtime docusate sodium 100 mg Capsule 100 mg PO BID PRN (Reason: Constipation) amoxicillin 250 mg Capsule 1,500 mg PO .1H BEFORE PROCEDURE Rx Instructions: dental clotrimazole [Antifungal (clotrimazole)] 1 % Cream 1 applic TOPICAL DAILY PRN (Reason: rash) meclizine 25 mg Tablet,Chewable 25 mg PO BID PRN (Reason: Dizziness) diclofenac sodium 1 % Gel See Rx Instructions .ROUTE .COMPLEX Rx Instructions: Apply topically to affected areas three times daily as needed for pain levothyroxine 125 mcg tablet 125 mcg PO DAILY vitamin E 268 mg (400 unit) Capsule 268 mg PO DAILY Eliquis 2.5 mg tablet 2.5 mg PO Q12H losartan 50 mg Tablet 50 mg PO BID Qty: 60 0RF amlodipine [Norvasc] 5 mg Tablet 5 mg PO BID Qty: 60 0RF [facility] [Primary [facility] Provider[facility] -
[2023-02-19 08:25] LABS: Base Excess VBG 6.3 mEq/L; HCO3 VBG 32 mmol/L; Oxygen Saturation VBG < 60.0 %; PCO2 VBG 51 mmHg (38-50); PO2 VBG 34 mmHg; pH VBG 7.41 (7.36-7.41)
--- NOTE | 2023-02-19 08:33 | XRay Report ---
SINGLE VIEW CHEST CLINICAL HISTORY: Dyspnea FINDINGS: An AP, portable, upright chest radiograph is compared to study dated 01/12/2023 and correlat ed with chest CT dated 06/08/2021. The examination is degraded by portable technique and patient rotati on. The heart is enlarged noting atherosclerotic calcification of the thoracic aorta. There is pulmo nary vascular congestion. The mitral annulus is calcified. Chronic interstitial thickening is similar to previous. Foci of parenchymal scarring are seen throughout both lungs. No large pleural effusion or pneumothorax is identified. The skeletal structures are osteopenic. The bony thorax is grossly int act. Advanced arthritic change is seen in the shoulders. There is advanced degenerative change noted in the thoracic spine. Fusion hardware is seen in the lumbar spine. A benign-appearing chondroid lesi on is again seen in the left proximal humerus. Cholecystectomy clips are noted. IMPRESSION: 1. Cardiomegaly with pulmonary vascular congestion. 2. No airspace consolidation or large pleural effusion is identified. ACT 112: Negative or not required by law. Electronically signed by: Brock Lou M.D. 02/19/2023 8:30 AM
[2023-02-19 08:34] LABS: Basophils # (auto) 0.09 K/uL (0.00-0.20); Basophils % (auto) 0.9 %; Eosinophils # (auto) 0.46 K/uL (0.00-0.50); Eosinophils % (auto) 4.6 %; Hematocrit (blood only) 33.5 % (37.0-47.0); Hemoglobin 10.7 g/dl (12.0-16.0); Immature Granulocytes # (auto) 0.04 K/uL (0.01-0.20); Immature Granulocytes % (auto) 0.4 %; Lymphocytes # (auto) 1.04 K/uL (1.20-3.40); Lymphocytes % (auto) 10.4 %; Mean Corpuscular Hemoglobin 27.4 pg (25.0-34.0); Mean Corpuscular Hgb Conc 31.9 g/dL (32.0-36.0); Mean Corpuscular Volume 85.9 fL (80.0-100.0); Mean Platelet Volume 10.3 fL (9.4-12.4); Monocytes # (auto) 1.02 K/uL (0.11-0.59); Monocytes % (auto) 10.2 %; Neutrophils # (auto) 7.33 K/uL (1.40-6.50); Neutrophils % (auto) 73.5 %; Platelet Count 211 K/uL (130-400); RDW Coefficient of Variation 16.4 % (11.5-14.5); RDW Standard Deviation 51.1 fL (36.4-46.3); White Blood Count 9.98 K/ul (4.8-10.8)
[2023-02-19 08:45] LABS: Albumin Globulin Ratio 1.6 (0.9-2); Albumin Level 4.1 gm/dl (3.4-5.0); BUN Creatinine Ratio 27.7 (10-20); Bilirubin,Total 1.3 mg/dl (0.2-1.0); Calcium 9.7 mg/dl (8.6-10.3); Creatinine Clr Calc Pharmacy 33.4 ml/min; Est GFR (African American) 57.2 ml/min; Est GFR (Non-African American) 49.3 ml/min; Globulin 2.6 gm/dl (2.5-4.0); Magnesium 1.8 mg/dl (1.7-2.4); Potassium 3.6 mmol/L (3.5-5.1); Total Protein 6.7 gm/dl (6.0-8.3)
[2023-02-19 08:54] LABS: Troponin I High Sensitivity 37.1 pg/ml (0-14)
[2023-02-19 08:58] LABS: INR 1.2 (0.9-1.1); Prothrombin Time 13.4 Seconds (9.0-12.0)
[2023-02-19] MEDS ORDERED: FUROSEMIDE 40 MG/4 ML VIAL IV ONE (09:16)
[2023-02-19 09:25] LABS: Adenovirus PCR Not Detected (NotDetected); Bordetella parapertussis PCR Not Detected (NotDetected); Bordetella pertussis PCR Not Detected (NotDetected); Chlamydia pneumoniae PCR Not Detected (NotDetected); Coronavirus 229E PCR Not Detected (NotDetected); Coronavirus CoV-2 (COVID19)PCR Not Detected (NotDetected); Coronavirus HKU1 PCR Not Detected (NotDetected); Coronavirus NL63 PCR Not Detected (NotDetected); Coronavirus OC43PCR Not Detected (NotDetected); Human Metapneumovirus PCR Not Detected (NotDetected); Influenza A PCR Not Detected (NotDetected); Influenza B PCR Not Detected (NotDetected); Mycoplasma pneumoniae PCR Not Detected (NotDetected); Parainfluenza Virus 1 PCR Not Detected (NotDetected); Parainfluenza Virus 2 PCR Not Detected (NotDetected); Parainfluenza Virus 3 PCR Not Detected (NotDetected); Parainfluenza Virus 4 PCR Not Detected (NotDetected); Respiratory Syncytial VirusPCR Not Detected (NotDetected); Rhinovirus/Enterovirus PCR Not Detected (NotDetected)
[2023-02-19 10:18] LABS: Appearance Urine Clear (Clear); Bacteria Urine Automated 4+ (Negative); Bilirubin Urine Negative (Negative); Blood Urine Negative (Negative); Cast Urine Automated 0 /lpf (0-5); Color Urine Yellow; Epithelial Cell Urine Auto >30 /lpf (0-5); Glucose Urine UA Negative (Negative); Ketones Urine Negative (Negative); Leukocyte Esterase Urine 2+ (Negative); Nitrite Urine Positive (Negative); Protein Urine Negative (Negative); RBC Urine Automated 0-4 /hpf (0-4); Specific Gravity Urine 1.012 (1.000-1.030); Urobilinogen Urine Negative (Negative); pH Urine 7.5 (4.5-7.5)
[2023-02-19] MEDS ORDERED: cefTRIAXone SODIUM 2,000 MG/50 ML BAG IV STA (10:22)
[2023-02-19] MEDS ORDERED: AMIODARONE / D5W 150 MG/100 ML BAG IV STA (11:11)
[2023-02-19] MEDS ORDERED: 0.2 MICRON FILTER SET 1 EACH IV ONE ×2 (11:11→12:46)
--- NOTE | 2023-02-19 11:29 | History & Physical Report ---
Date of Service February 19, 2023 Assessment & Plan (1) Atrial fibrillation with RVR: Plan: -Admit to the PCU on tele and continuous pulse oximetry -Patient went into afib rvr and became hypotensive with systolics in the 70's when being sat up by ED staff -BP is currently stable after giving 500 mL NSS and 150 mg IV amiodarone bolus on admission -Patient was in NSR while in the ED, has a known hx of aifb and is on Eliquis and metoprolol -Patient likely went into afib RVR due to preload reduction from 40 mg IV lasix in the ED as the patient has known moderate Aortic stenosis, did not have her am Metoprolol today, and has a mag level of 1.8 -Will given another 500 mL NSS for preload and BP support, once stable will give her am dose of metoprolol -When BP is stable will give 2gm IV mag sulfate -STAT CTA of the chest with PE protocol ordered in the ED after acute decompensation, currently being obtain on admission, will follow -Will hold am dose of Eliquis until CTA results are back in case she has new PE's while on anticoagulation -Bedrest for now, will need to monitor closely over the next few hours -NPO until stable -AM CBC, BMP, mag, PT/INR (2) Hypotension: Plan: -Became hypotensive after going into afib RVR -Likely due to her unstable arrhythmia -BP is currently stable after 500 mL NSS and 150 mg IV amiodarone bolus -Will give an additional 500 mL NSS bolus on admission to ensure she has adequate preload with her moderate aortic stenosis -Continue to monitor on tele and pulse oximetry -Will hold amlodipine and losartan for now (3) (HFpEF) heart failure with preserved ejection fraction: Plan: -Patient had been stable on her baseline 4L NC at rest while in the ED -Has a hx of difficulty with controlling volume status, is on BID PO Bumex -BNP had been stable compared to previous admissions -Will hold further diuretics for now until she is stable -Will re-evaluate later today to see when we will restart diuretics (4) Abnormal urinalysis: Plan: -Patient UA today with positive nitrites, 2+ LE, 5-10 WBC, 4+ bacteria, but with > 30 epithelial cells -Urine itself does not look consistent with infection on inspection of currently eckert contents -UA was obtained prior to Eckert placement in the ED, could be contamination -Patient currently denies urinary symptoms but is also not the most reliable historian -S/P one dose of ceftriaxone in the ED -No leukocytosis, had been stable prior to IV lasix in the ED -Will hold additional abx for now and obtain repeat UA from eckert sample -If concerning findings on repeat UA, new fever, or worsening clinical status will continue antibiotics (5) Hypertension: Plan: -Hold amlodipine and losartan with recent afib RVR and hypotension (6) Chronic respiratory failure with hypoxia, on home O2 therapy: Plan: -Currently stable on her 4L NC at rest, uses 6L NC with exertion -Staff at [facility] reported increased hypoxia this am into the 60's with exertion on 6L NC -Volume control is difficult with this patient as she frequently goes into CHF exacerbations but is also high risk for increased diuresis with her moderate -Continue prn O2 -Monitor volume status closely -Incentive spirometry, flutter therapy -Continue home breathing treatments (7) Hypothyroidism: Plan: -Continue levothyroxine (8) CAD (coronary artery disease): Plan: -Denies chest pain -Continue aspirin Plan The patient was discussed with Dr. Ibrahim at the time of the admission History of Present Illness Chief Complaint: SOB Primary Care Provider: [employer], [facility] Ruthy is an 88 year old female with a PMH significant for vertigo, hypertension, thyroidectomy, asthma/COPD on chronic 4L NC, atrial fibrillation on Eliquis, rheumatoid arthritis, aortic stenosis, and heart HFpEF who was sent to the [facility] ED via EMS from [facility] for acute onset of SOB while trying to stand for breakfast this morning. She was noted to be mildly hypertensive at 162/91 but was otherwise stable, including stable on her baseline 4L NC. Labs were significant for an initial high sen trop of 37 --->39 on 2 hour repeat,, BNP of 874 (down from 1151 on 12/19), and full respiratory biofire negative. Chest xray was read as 1. Cardiomegaly with pulmonary vascular congestion. 2. No airspace consolidation or large pleural effusion is identified.. The patient was given 40 mg IV Lasix in the ED with initial plans for discharge back to [facility]. While the patient was being lifted into a sitting position she suddenly became tachycardic with HR in the 140's and hypotensive at 70/49. Review of the patient's tele monitoring shows aifb-RVR, she had been in NSR on initial ECG in the ED. Prior to admission the patient was given a 500 mL NSS bolus. At the time of the exam the patient was lying in bed in no acute distress. She was still in afib RVR with HR in the 120-130's with a BP of 81/58. She is mentating well and currently denies any complaints. She states that she has been a bit more weak than normal over the last few days and did not feel like going to breakfast this am. I spoke with the staff at [facility]. They explain that the patient has been getting progressively more SOB, especially with exertion over the past 3-4 days. This am they had her ambulate in the [place] while on her baseline 6L NC with exertion and she was desaturating into the 60's on SpO2 monitoring. They explain that she only had her Levothyroxine prior to EMS arrival. The patient has a living will and is a DNR/DNI. She currently denies chest pain, SOB, palpitations, abd pain, nausea, vomiting, diarrhea, dysuria, hematuria, increased urinary frequency, and recent trauma. The patient was given a dose of Ceftriaxone prior to admission for possible UTI. Please refer to Dr. Ibrahim's attestation for any changes to the treatment plan Allergies Allergy/AdvReac Type Severity Reaction Status Date / Time bee venom protein (honey bee) Allergy Intermediate HIVES Verified 01/20/22 13:29 oxycodone Allergy Unknown Unknown Verified 01/20/22 13:29 Sulfa (Sulfonamide Allergy Unknown MOUTH Verified 01/20/22 13:29 Antibiotics) SWELLED/HIVES TO SULFA DRUGS, chemical hepatitis gabapentin Allergy Rash Verified 01/20/22 13:29 nitrofurantoin AdvReac Severe CAUSES Verified 01/20/22 13:29 HEPATITUS hydromorphone AdvReac Intermediate HALLUCINATI Verified 01/20/22 13:29 ONS Home Medications Medication Instructions Recorded Confirmed Type ascorbic acid (vitamin C) 500 mg 500 mg PO QAM 02/08/18 02/19/23 History capsule aspirin 81 mg tablet,delayed 81 mg PO QAM 02/08/18 02/19/23 History release cholecalciferol (vitamin D3) 25 1,000 unit PO QAM 02/08/18 02/19/23 History mcg (1,000 unit) tablet (Vitamin D3) omega 9-[id number]-fish oil 1,000 mg 1 cap PO QAM 02/08/18 02/19/23 History (120 mg-180 mg) capsule (Fish Oil) Oxygen Home #1 ea 10/19/18 01/20/22 Rx Flutter Valve #1 ea 02/03/21 01/20/22 Rx Oxygen Home #4 L 05/18/21 01/20/22 Rx albuterol sulfate 90 mcg/actuation 2 inh inhalation Q4H PRN Wheezing 06/08/21 02/19/23 History aerosol inhaler (Ventolin HFA) docusate sodium 100 mg capsule 100 mg PO QPM 06/22/21 02/19/23 History metoprolol succinate 100 mg 100 mg PO QAM #90 tabs 08/11/21 02/19/23 Rx tablet,extended release 24 hr fluticasone 100 mcg-salmeterol 50 1 inh inhalation BID #60 ea 10/04/21 02/19/23 Rx mcg/dose blistr powdr for inhalation (Advair Diskus) cranberry 400 mg capsule 400 mg PO BID 11/09/21 02/19/23 History diphenhydramine HCl 25 mg capsule 25 mg PO HS #30 caps 11/15/21 02/19/23 Rx (Benadryl) melatonin 3 mg tablet 3 mg PO HS #30 tabs 11/15/21 02/19/23 Rx thiamine HCl (vitamin B1) 100 mg 100 mg PO BID #60 tabs 11/15/21 02/19/23 Rx tablet acetaminophen 500 mg tablet 500 mg PO Q4H PRN pain/fever 12/02/21 02/19/23 History ondansetron HCl 4 mg tablet 4 mg PO Q6H PRN N/V 12/02/21 02/19/23 History atorvastatin 20 mg tablet 20 mg PO HS #90 tabs 01/18/22 02/19/23 Rx sertraline 100 mg tablet 150 mg (1.5 x 100 mg) PO PM #135 05/05/22 02/19/23 Rx tabs amoxicillin 250 mg capsule 1,500 mg PO .1H BEFORE PROCEDURE 12/19/22 02/19/23 History buspirone 5 mg tablet 5 mg PO TID 12/19/22 02/19/23 History clotrimazole 1 % topical cream 1 applic topical DAILY PRN rash 12/19/22 02/19/23 History (Antifungal (clotrimazole)) diclofenac sodium 1 % topical gel See Rx Instructions .Route .COMPLEX 12/19/22 02/19/23 History docusate sodium 100 mg capsule 100 mg PO BID PRN Constipation 12/19/22 02/19/23 History lidocaine 4 % topical patch 1 patch topical DAILY 12/19/22 02/19/23 History meclizine 25 mg chewable tablet 25 mg PO BID PRN Dizziness 12/19/22 02/19/23 History apixaban 2.5 mg tablet (Eliquis) 2.5 mg PO Q12H 01/12/23 02/19/23 History levothyroxine 125 mcg tablet 125 mcg PO DAILY 01/12/23 02/19/23 History vitamin E 268 mg (400 unit) capsule 268 mg PO DAILY 01/12/23 02/19/23 History amlodipine 5 mg tablet (Norvasc) 5 mg PO BID #60 tabs 01/13/23 02/19/23 Rx losartan 50 mg tablet 50 mg PO BID #60 tabs 01/13/23 02/19/23 Rx dextromethorphan-guaifenesin 30 1 tab PO Q12H PRN Congestion 02/19/23 02/19/23 History mg-600 mg tablet extended [id number] hr (Mucinex DM) vit C 250 mg-vit E 90 mg-zinc 40 1 tab PO BID 02/19/23 02/19/23 History mg-copper 1 [id number] capsule (PreserVision AREDS-2) amiodarone 200 mg tablet 400 mg (2 x 200 mg) PO BIDM #30 02/22/23 Rx tabs cephalexin 500 mg capsule 500 mg PO BID 5 days #10 caps 02/22/23 Rx Past Med/Surg History Medical History Pulmonary hypertension Mitral stenosis (HFpEF) heart failure with preserved ejection fraction PAF (paroxysmal atrial fibrillation) Aortic stenosis Chronic respiratory failure with hypoxia Cough Anemia Hypoxia Noncompliance Pulmonary edema Dyspnea Acute and chronic respiratory failure with hypoxia Paroxysmal SVT (supraventricular tachycardia) COPD (chronic obstructive pulmonary disease) Hypoxia Vertigo Depression Yeast dermatitis Sinus bradycardia Renal cell carcinoma Obesity Mitral insufficiency 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 LO Liver enzyme elevation IN THE PAST (CURRENTLY WNL) Hypothyroidism Macular degeneration Anxiety Hypertension Hyperlipidemia Asthma WELL CONTROLLED PER PT Hypothyroidism Hypertension Surgical History (Updated 01/23/23 @ 00:10 by Background Day) H/O partial nephrectomy right -2001 H/O left radical nephrectomy 1999 History of cardiac cath [facility] [place] - MANY YEARS AGO - REASON? - NO STENTS/ANGIOPLASTY History of esophagogastroduodenoscopy (EGD) History of colonoscopy History of anesthesia reaction SLOW TO WAKE UP History of hysterectomy AND OOPHERECTOMY History of carpal tunnel release RT/ LT History of total knee replacement RT/LEFT Fusion of spine LUMBAR FUSION AND REVISION (2 SURGERIES) History of bladder surgery BLADDER TACK History of thyroidectomy, subtotal History of tooth extraction History of cataract surgery BL Family History Brother History of colon resection Colorectal cancer Diabetes Prostate cancer Sister Breast cancer Mother Diabetes Coronary heart disease Father Myocardial infarction Denies family history of Ovarian cancer Social History Smoking Status: Former smoker Second Hand Exposure: No; Do You Dip or Chew Tobacco: No; Hx Alcohol Use: No Hx Substance Use: No Preferred Language: Amharic Communication Ability: Effective Visual Impairment: No Limitations Hearing Ability: Normal Proposal Editor Required: No Beliefs That Will Affect Care: None Current Living Situation: Personal Care Facility Current Living Situation Comment: [facility] current occupational status: retired 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 How many Children do You have: 2 Other Information That Helps Us Care for You: No Feels Safe at Home: Yes Safety Concerns: Feels Safe At This Time Childhood Exposure to Second-Hand Smoke: No Diet: low salt caffeine: Yes (soda rarley) Dental Care, Regularly: No Physical Activity Frequency: Daily Seatbelt Use: always Sunscreen Use: Yes Assistive Devices: Walker Physical Exam Physical Exam: Physical Exam: General: In no acute distress, stated age, non-toxic appearing HEENT: Normocephalic, atraumatic, no scleral icterus, pupils around round, symmetrical, and reactive to light, moist mucus membranes, trachea midline, no thyromegaly Chest/Pulm: No respiratory distress, symmetrical chest expansion, crackles noted throughout Cardiac: tachycardic rate, irregular rhythm, 3/6 systolic murmur noted Abdomen: Negative for ascites and bruising, normoactive bowel sounds, soft, non-tender to palpation throughout : Patient with Eckert catheter in place from the ED currently draining 700 cc of clear, yellow urine. Musculoskeletal: Symmetrical and without signs of acute trauma, upper and lower extremities with full ROM, no atrophy, spasticity, or flaccidity Extremities: Radial, dorsalis pedis, and posterior tibial pulses are intact and symmetrical, 1+ edema noted in the BL LE's Skin: Warm, dry, no rashes , lesions, or scars noted Neuro: Alert and oriented to person and place, no focal defects, no tremors noted Psych: No acute distress, calm and cooperative during the exam Results & Data Results & Data Vital Signs (Past 12 Hours) Vital Signs Temp Pulse Resp BP Pulse Ox O2 Del Method O2 Flow Rate 02/19/23 11:12 127 H 02/19/23 11:07 138 H 22 81/58 L 97 02/19/23 11:05 129 H 13 70/49 L 96 02/19/23 10:30 64 22 199/93 H 96 02/19/23 10:00 61 22 167/78 H 93 02/19/23 09:30 61 22 154/78 H 91 02/19/23 09:00 67 18 157/78 H 94 02/19/23 08:30 68 21 141/70 H 92 02/19/23 08:12 66 20 94 Nasal Cannula 4 02/19/23 08:10 71 02/19/23 08:09 96 Nasal Cannula 4 02/19/23 08:04 37.0 C 74 20 162/91 H 94 Nasal Cannula 4 Laboratory Results Abnormal lab results 02/19/23 02/19/23 02/19/23 Range/Units 08:10 10:00 10:18 RBC 3.90 L (4.20-5.40) M/uL Hgb 10.7 L (12.0-16.0) g/dl Hct 33.5 L (37.0-47.0) % MCHC 31.9 L (32.0-36.0) g/dL RDW Std Deviation 51.1 H (36.4-46.3) fL RDW Coeff of Yanelis 16.4 H (11.5-14.5) % Neut # (Auto) 7.33 H (1.40-6.50) K/uL Lymph # (Auto) 1.04 L (1.20-3.40) K/uL Juncos # (Auto) 1.02 H (0.11-0.59) K/uL PT 13.4 H (9.0-12.0) Seconds INR 1.2 H (0.9-1.1) VBG pCO2 51 H (38-50) mmHg BUN 28 H (6-23) mg/dl BUN/Creatinine Ratio 27.7 H (10-20) Glucose 102 H (70-99(Fasting)) mg/dl Total Bilirubin 1.3 H (0.2-1.0) mg/dl Troponin I High Sens 37.1 H 39.8 H (0-14) pg/ml B-Natriuretic Peptide 874 H (0-100) pg/ml Urine Nitrite Positive A (Negative) Ur Leukocyte Esterase 2+ H (Negative) Urine WBC (Auto) 5-10 H (0-5) /hpf U Epithel Cells (Auto) >30 H (0-5) /lpf Urine Bacteria (Auto) 4+ H (Negative) Diagnostic Findings Chest X-Ray 02/19/23 08:08 SINGLE VIEW CHEST CLINICAL HISTORY: Dyspnea FINDINGS: An AP, portable, upright chest radiograph is compared to study dated 01/12/2023 and correlated with chest CT dated 06/08/2021. The examination is degraded by portable technique and patient rotation. The heart is enlarged noting atherosclerotic calcification of the thoracic aorta. There is pulmonary vascular congestion. The mitral annulus is calcified. Chronic interstitial thickening is similar to previous. Foci of parenchymal scarring are seen throughout both lungs. No large pleural effusion or pneumothorax is identified. The skeletal structures are osteopenic. The bony thorax is grossly intact. Advanced arthritic change is seen in the shoulders. There is advanced degenerative change noted in the thoracic spine. Fusion hardware is seen in the lumbar spine. A benign-appearing chondroid lesion is again seen in the left proximal humerus. Cholecystectomy clips are noted. IMPRESSION: 1. Cardiomegaly with pulmonary vascular congestion. 2. No airspace consolidation or large pleural effusion is identified. ACT 112: Negative or not required by law. Electronically signed by: Brock Lou M.D. 02/19/2023 8:30 AM ECG Additional Comments: Atrial fibrillation with rapid ventricular response Left axis deviation Left ventricular hypertrophy ( R in aVL , Shohola product , Romhilt-Castillo ) Marked ST abnormality, possible inferolateral subendocardial injury Abnormal ECG When compared with ECG of 19-FEB-2023 08:02, (unconfirmed) Atrial fibrillation has replaced Sinus rhythm Vent. rate has increased BY [address] now depressed in Inferior leads ST more depressed Lateral leads Code Status & VTE Plan Code Status DNR/DNI VTE Prophylaxis Plan VTE Prophylaxis will be ordered: Yes Critical Care Time Critical Care Time: Yes Total Critical Care Time: 45 Supervising Physician Co-Signing Physician Notes I personally saw and examined the patient. I verified all deleon points and agree with Joey Yang PA-C with the following exceptions and/or additions: 88 year old female presents to the ER with shortness of breath episode on first waking up this morning. No real objective evidence of worsening heart failure when initially presented by ER provider. However after Lasix 40mg IV she diuresed at least 1L of went into atrial fibrillation with rapid rate and became hypotensive at which time she was discussed with the medicine team again. O/E Multiple examinations throughout the day but on admission HR tachycardic with irregular rhythm, systolic murmur, no respiratory distress, bibasal crackles, no wheezing, Abdo SNT, trace pedal edema b/l A/P A. fib RVR - known paroxysmal, on anticoagulation, plan to convert back to NSR as unclear if just hypotensive from rapid fluid loss and pre-load with known aortic stenosis +/- a. fib RVR. Started on amiodarone bolus and drip. After BP stabilized after IV fluids she was given her usual morning metoprolol dose that she had missed. Subsequently developed pauses up to 5.7 seconds in atrial fibrillation and amiodarone drip was discontinued. BP was better after IV fluids therefore no electrical cardioversion was performed. Rate was better after IV fluids and metoprolol. Eventually cardioverted and appeared to be much more stable. Will need subsequent diuresis after IV fluids given but to avoid hypotension again overnight will place back on her usual Bumex tomorrow and have cardiology review her. Aortic stenosis Hypotension due to hypovolemia/rapid a. fib - resolved with above interventions. holding amlodipine/losartan Asymptomatic bacteria - repeat urine analysis from eckert catheter not concerning for infection. Ceftriaxone given in the ER, but since normal urine analysis on better sample this is not a UTI. Chronic congestive heart failure - on the basis of valvular disease, objectively (labs etc...) she is no worse than baseline prior to lasix and reportedly at her baseline after intermittent episode this morning. Will have to investigate alternative cause of her hypoxia at alf once emergent management completed. ?intermittent just related to aortic stenosis. PG Care Time/CCT Total # of Minutes Spent Total Time Spent with Patient: Total time spent is greater than 50% in coordination of care (as documented) at patient's floor/unit and/or counseling patient: Critical Care Time: Yes Total Critical Care Time: 45 C[place] [address] INT INP/OBS CARE 3/75MIN Patient Type Established Medical Decision Making High Complexity Diagnoses Atrial fibrillation with RVR I48.91 Hypotension I95.9 (HFpEF) heart failure with preserved ejection fraction I50.30 Abnormal urinalysis R82.90 Hypertension I10 Chronic respiratory failure with hypoxia, on home O2 therapy J96.11; Z99.81 Hypothyroidism E03.9 CAD (coronary artery disease) I25.10 Additional Codes Critical Care Time - Critical Care Time: Yes ([id number])
[2023-02-19] MEDS ORDERED: OPTIRAY 320 125ml IV ONE (11:56)
[2023-02-19] MEDS ORDERED: SODIUM CHLORIDE 0.9% 500 ML IV ONE (11:57)
[2023-02-19] MEDS: MAGNESIUM SULFATE / D5W 1 GM/100 ML BAG IV SCH ×2 (12:15→13:48)
--- NOTE | 2023-02-19 12:38 | CT Scan Report ---
CT ANGIOGRAM OF THE CHEST CLINICAL HISTORY: Tachycardia. Hypoxia. Hypotension. COMPARISON STUDY: Chest x-ray dated 02/19/2023. Chest CT dated 06/08/2021. PET/CT dated 02/17/2021. TECHNIQUE: Following the IV administration of 114 cc of Optiray 320, CT angiogram of the chest was pe rformed from the upper abdomen to the thoracic inlet utilizing the pulmonary embolus protocol. Images are reviewed in the axial, sagittal, and coronal planes. 3-D MIPS images are created and assessed. I V contrast was administered without complication. A dose lowering technique was utilized adhering to the principles of ALARA. The examination is severely compromised by motion artifact, as well as by s treak artifact from the arms which could not be elevated above the chest. CT DOSE: 848.64 mGy.cm FINDINGS: Thyroid: Atrophic and heterogeneous. Thoracic aorta: There is atherosclerotic calcification of the thoracic aorta, which is normal in meseret ming and demonstrates standard 3-vessel arch anatomy. The thoracic aorta is not well opacified. Pulmonary vasculature: The pulmonary trunk is markedly dilated, measuring up to 5 cm diameter. This i ndicates pulmonary artery hypertension. There are no filling defects identified in main, lobar, or se gmental pulmonary branches to suggest pulmonary embolus. Heart: The heart is markedly enlarged and without pericardial effusion. The carotid arteries, mitral annulus, and aortic valve leaflets are densely calcified. There is significant left ventricular hyper trophy. Lungs and pleural spaces: Evaluation of the lung parenchyma is significantly degraded by motion artif act. Chronic interstitial thickening with foci of architectural distortion and groundglass change are similar to previous. A paraseptal thickening suggests congestive failure. There are small pleural ef fusions with dependent consolidation. An 8 mm right upper lobe nodule on image #1 60 to 27 mm nodule in the right lower lobe image #100 are likely unchanged from previous. Lower neck: Enlarged left supraclavicular nodes are similar to previous. These measure up to 10 mm in short axis. Mediastinum: There is mediastinal lymphadenopathy. Prevascular nodes measure up to 2.0 cm in short ax is. A high right paratracheal node on image #172 measures 2.8 x 2.3 cm, and a subcarinal node measure s at least 2.1 cm short axis. Daniela: Mildly enlarged hilar nodes are unchanged. Right hilar nodes measure up to 13 mm short axis. Axillae: There is no axillary lymphadenopathy. Upper abdomen: Complex/hyperdense right renal cysts measure up to 1.8 cm. The 7 seen on prior examina tions. Partially visualized upper abdominal viscera is otherwise grossly unremarkable. Skeletal structures: The skeletal structures are heterogeneously osteopenic. Advanced degenerative ch anges and kyphoscoliosis is noted in the thoracic spine. Advanced arthritic change is seen in the stephan ulders. No lytic or blastic bony lesions are seen. IMPRESSION: 1. Significant streak and motion compromised examination. 2. There is no evidence of pulmonary embolus in the main, lobar, or segmental pulmonary arteries. 3. Cardiomegaly without evidence of congestive failure and pulmonary artery hypertension. 4. Small pleural effusions with dependent consolidation. This likely represents atelectasis and clini tequila correlation will be required. 5. Chronic parenchymal changes and subcentimeter pulmonary nodules in the right lung. This is likely unchanged from previous. 6. Mediastinal, hilar, and supraclavicular lymphadenopathy is pathologically indeterminate and simila r to prior examinations. 7. Additional findings as above. ACT 112: Negative or not required by law. Electronically signed by: Brock Lou M.D. 02/19/2023 12:36 PM
[2023-02-19] MEDS ORDERED: AMIODARONE / D5W 360 MG/200 ML BAG IV SCH (12:52)
[2023-02-19 13:18] LABS: Appearance Urine Clear (Clear); Bilirubin Urine Negative (Negative); Blood Urine Trace-intact (Negative); Color Urine Yellow; Glucose Urine UA Negative (Negative); Ketones Urine Negative (Negative); Leukocyte Esterase Urine Negative (Negative); Nitrite Urine Negative (Negative); Protein Urine Negative (Negative); Urobilinogen Urine Negative (Negative); pH Urine 7.5 (4.5-7.5)
[2023-02-19 13:23] LABS: Bacteria Urine Negative (Negative); Epithelial Cell Urine 0-5 /lpf (0-5); Hyaline Casts Urine 0-5 /lpf (0-5); RBC Urine 0-4 /hpf (0-4); WBC Urine 0-5 /hpf (0-5)
[2023-02-19] MEDS ORDERED: ASPIRIN 81 MG ECTAB PO STA (13:48)
[2023-02-19] MEDS ORDERED: APIXABAN 2.5 MG TAB PO STA (13:49)
[2023-02-19] MEDS ORDERED: METOPROLOL SUCC 50MG EXT REL TAB PO STA (13:50)
[2023-02-19] MEDS ORDERED: ALBUTEROL HFA 8 GM INHALER INH PRN (13:51)
[2023-02-19] MEDS: busPIRone 5 MG TAB PO SCH ×2 (14:41→21:26)
[2023-02-19] MEDS ORDERED: METOPROLOL TARTRATE 1 MG/ML VIAL IV STA (15:23)
[2023-02-19] MEDS: POTASSIUM CHLORIDE / WTR 10 MEQ/100 ML PLCT IV SCH ×2 (17:29→19:00)
[2023-02-19] MEDS: APIXABAN 2.5 MG TAB PO SCH (21:26)
[2023-02-19] MEDS: MELATONIN 3 MG TAB PO SCH (21:27)
[2023-02-19] MEDS: SERTRALINE HCL 50 MG TABLET PO SCH (21:27)
[2023-02-19] MEDS: ATORVASTATIN 20 MG TAB PO SCH (21:27)
[2023-02-20] MEDS: LEVOTHYROXINE SODIUM 125 MCG TABLET PO SCH (05:57)
[2023-02-20 06:38] LABS: Basophils # (auto) 0.05 K/uL (0.00-0.20); Basophils % (auto) 0.6 %; Eosinophils # (auto) 0.47 K/uL (0.00-0.50); Eosinophils % (auto) 5.2 %; Hematocrit (blood only) 32.9 % (37.0-47.0); Hemoglobin 10.6 g/dl (12.0-16.0); Immature Granulocytes # (auto) 0.05 K/uL (0.01-0.20); Immature Granulocytes % (auto) 0.6 %; Lymphocytes # (auto) 1.29 K/uL (1.20-3.40); Lymphocytes % (auto) 14.2 %; Mean Corpuscular Hemoglobin 27.3 pg (25.0-34.0); Mean Corpuscular Hgb Conc 32.2 g/dL (32.0-36.0); Mean Corpuscular Volume 84.8 fL (80.0-100.0); Mean Platelet Volume 9.9 fL (9.4-12.4); Monocytes # (auto) 0.76 K/uL (0.11-0.59); Monocytes % (auto) 8.4 %; Neutrophils # (auto) 6.47 K/uL (1.40-6.50); Platelet Count 204 K/uL (130-400); RDW Coefficient of Variation 16.3 % (11.5-14.5); RDW Standard Deviation 50.4 fL (36.4-46.3); Red Blood Count 3.88 M/uL (4.20-5.40); White Blood Count 9.09 K/ul (4.8-10.8)
[2023-02-20 06:55] LABS: Calcium 8.8 mg/dl (8.6-10.3); Creatinine Clr Calc Pharmacy 29.4 ml/min; Est GFR (African American) 52.1 ml/min; Magnesium 2.1 mg/dl (1.7-2.4); Potassium 3.6 mmol/L (3.5-5.1)
[2023-02-20 07:10] LABS: Thyroid Stimulating Hormone 0.703 uIu/ml (0.300-4.500)
[2023-02-20] MEDS: ASPIRIN 81 MG ECTAB PO SCH (08:10)
[2023-02-20] MEDS: APIXABAN 2.5 MG TAB PO SCH (08:10)
[2023-02-20] MEDS: BUMETANIDE 1 MG TAB PO SCH ×2 (08:10→17:53)
[2023-02-20] MEDS: METOPROLOL SUCC 50MG EXT REL TAB PO SCH (08:10)
[2023-02-20] MEDS: busPIRone 5 MG TAB PO SCH ×3 (08:10→20:18)
[2023-02-20] MEDS: FLUTICASONE/VILANTEROL 100/25MCG 14 PUFFS/INHALER INH SCH (08:11)
--- NOTE | 2023-02-20 09:50 | Cardiology Consultation ---
Date of Consultation February 20, 2023 History of Present Illness Attending Physician: Rashida Musa MD Allergies Allergy/AdvReac Type Severity Reaction Status Date / Time bee venom protein (honey bee) Allergy Intermediate HIVES Verified 01/20/22 13:29 oxycodone Allergy Unknown Unknown Verified 01/20/22 13:29 Sulfa (Sulfonamide Allergy Unknown MOUTH Verified 01/20/22 13:29 Antibiotics) SWELLED/HIVES TO SULFA DRUGS, chemical hepatitis gabapentin Allergy Rash Verified 01/20/22 13:29 nitrofurantoin AdvReac Severe CAUSES Verified 01/20/22 13:29 HEPATITUS hydromorphone AdvReac Intermediate HALLUCINATI Verified 01/20/22 13:29 ONS Home Medications Medication Instructions Recorded Confirmed Type ascorbic acid (vitamin C) 500 mg 500 mg PO QAM 02/08/18 02/19/23 History capsule aspirin 81 mg tablet,delayed 81 mg PO QAM 02/08/18 02/19/23 History release cholecalciferol (vitamin D3) 25 1,000 unit PO QAM 02/08/18 02/19/23 History mcg (1,000 unit) tablet (Vitamin D3) omega 9-uog-zcb-fish oil 1,000 mg 1 cap PO QAM 02/08/18 02/19/23 History (120 mg-180 mg) capsule (Fish Oil) Oxygen Home #1 ea 10/19/18 01/20/22 Rx Flutter Valve #1 ea 02/03/21 01/20/22 Rx Oxygen Home #4 L 05/18/21 01/20/22 Rx albuterol sulfate 90 mcg/actuation 2 inh inhalation Q4H PRN Wheezing 06/08/21 02/19/23 History aerosol inhaler (Ventolin HFA) docusate sodium 100 mg capsule 100 mg PO QPM 06/22/21 02/19/23 History metoprolol succinate 100 mg 100 mg PO QAM #90 tabs 08/11/21 02/19/23 Rx tablet,extended release 24 hr fluticasone 100 mcg-salmeterol 50 1 inh inhalation BID #60 ea 10/04/21 02/19/23 Rx mcg/dose blistr powdr for inhalation (Advair Diskus) cranberry 400 mg capsule 400 mg PO BID 11/09/21 02/19/23 History diphenhydramine HCl 25 mg capsule 25 mg PO HS #30 caps 11/15/21 02/19/23 Rx (Benadryl) melatonin 3 mg tablet 3 mg PO HS #30 tabs 11/15/21 02/19/23 Rx thiamine HCl (vitamin B1) 100 mg 100 mg PO BID #60 tabs 11/15/21 02/19/23 Rx tablet acetaminophen 500 mg tablet 500 mg PO Q4H PRN pain/fever 12/02/21 02/19/23 H istory ondansetron HCl 4 mg tablet 4 mg PO Q6H PRN N/V 12/02/21 02/19/23 History atorvastatin 20 mg tablet 20 mg PO HS #90 tabs 01/18/22 02/19/23 Rx sertraline 100 mg tablet 150 mg (1.5 x 100 mg) PO PM #135 05/05/22 02/19/23 Rx tabs amoxicillin 250 mg capsule 1,500 mg PO .1H BEFORE PROCEDURE 12/19/22 02/19/23 History buspirone 5 mg tablet 5 mg PO TID 12/19/22 02/19/23 History clotrimazole 1 % topical cream 1 applic topical DAILY PRN rash 12/19/22 02/19/23 History (Antifungal (clotrimazole)) diclofenac sodium 1 % topical gel See Rx Instructions .Route .COMPLEX 12/19/22 1 04/22/22 History docusate sodium 100 mg capsule 100 mg PO BID PRN Constipation 12/19/22 02/19/23 History lidocaine 4 % topical patch 1 patch topical DAILY 12/19/22 02/19/23 History meclizine 25 mg chewable tablet 25 mg PO BID PRN Dizziness 12/19/22 02/19/23 History apixaban 2.5 mg tablet (Eliquis) 2.5 mg PO Q12H 01/12/23 02/19/23 History levothyroxine 125 mcg tablet 125 mcg PO DAILY 01/12/23 02/19/23 History vitamin E 268 mg (400 unit) capsule 268 mg PO DAILY 01/12/23 02/19/23 History amlodipine 5 mg tablet (Norvasc) 5 mg PO BID #60 tabs 01/13/23 02/19/23 Rx losartan 50 mg tablet 50 mg PO BID #60 tabs 01/13/23 02/19/23 Rx bumetanide 0.5 mg tablet 0.5 mg PO BID 02/19/23 02/19/23 History dextromethorphan-guaifenesin 30 1 tab PO Q12H PRN Congestion 02/19/23 02/19/23 History mg-600 mg tablet extended [id number] hr (Mucinex DM) vit C 250 mg-vit E 90 mg-zinc 40 1 tab PO BID 02/19/23 02/19/23 History mg-copper 1 [id number] capsule (PreserVision AREDS-2) Patient History Medical History (Updated 02/19/23 @ 11:51 by Joey Yang PA-C) Chronic respiratory failure with hypoxia Cough Anemia Hypoxia Noncompliance Pulmonary edema Dyspnea Acute on chronic diastolic heart failure Acute and chronic respiratory failure with hypoxia Diastolic heart failure Paroxysmal SVT (supraventricular tachycardia) COPD (chronic obstructive pulmonary disease) Hypoxia Vertigo Depression Yeast dermatitis Sinus bradycardia Renal cell carcinoma Obesity Mitral insufficiency 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 LO Liver enzyme elevation IN THE PAST (CURRENTLY WNL) Hypothyroidism Macular degeneration Anxiety Atrial fibrillation DX YEARS AGO; FOLLOWS WITH DR. MLALOY Hypertension Hyperlipidemia Asthma WELL CONTROLLED PER PT Hypothyroidism Hypertension Atrial fibrillation Surgical History (Updated 01/23/23 @ 00:10 by Khoa Bernstein) H/O partial nephrectomy right -2001 H/O left radical nephrectomy 1999 [place] [facility] [place]ASON? - NO STENTS/ANGIOPLASTY History of esophagogastroduodenoscopy (EGD) History of colonoscopy History of anesthesia reaction SLOW TO WAKE UP History of hysterectomy AND OOPHERECTOMY History of carpal tunnel release RT/ LT History of total knee replacement RT/LEFT Fusion of spine LUMBAR FUSION AND REVISION (2 SURGERIES) History of bladder surgery BLADDER TACK History of thyroidectomy, subtotal History of tooth extraction History of cataract surgery BL Family History Brother History of colon resection Colorectal cancer Diabetes Prostate cancer Sister Breast cancer Mother Diabetes Coronary heart disease Father Myocardial infarction Denies family history of Ovarian cancer Social History (Reviewed 01/16/23 @ 20:55 by IVIS Acosta Smoking Status: Former smoker Second Hand Exposure: No; Do You Dip or Chew Tobacco: No; Hx Alcohol Use: No Hx Substance Use: No Preferred Language: Mac[place] Communication Ability: Effective Visual Impairment: No Limitations Hearing Ability: Normal Barrel Inspector Required: No Beliefs That Will Affect Care: None Current Living Situation: Personal Care Facility Current Living Situation Comment: [facility] current occupational status: retired 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 How many Children do You have: 2 Other Information That Helps Us Care for You: No Feels Safe at Home: Yes Safety Concerns: Feels Safe At This Time Childhood Exposure to Second-Hand Smoke: No Diet: low salt caffeine: Yes (soda rarley) Dental Care, Regularly: No Physical Activity Frequency: Daily Seatbelt Use: always Sunscreen Use: Yes Assistive Devices: Denture - Upper, Denture - Lower, Glasses, Oxygen - Continuous and Walker Review of Systems Respiratory: no cough, no chest congestion and no dyspnea Cardiovascular: no chest pain, no dyspnea at rest and no palpitations Gastrointestinal: no abdominal pain, no nausea, no vomiting and no diarrhea/loose stools Genitourinary: no dysuria patient has a catheter in Musculoskeletal: + back pain (residual back pain) and + j oint pain (residual shoulder pain) Physical Exam Cardiovascular: Rate/Rhythm: regular rate and regular rhythm Heart Sounds: + murmur (heard at A, P, and M); + abnormal S2 (loud) Gastrointestinal (Abdomen): normal bowel sounds, soft, nontender, no hepatosplenomegaly Results & Data Vital Signs (Past 12 Hours) Vital Signs Temp Pulse Pulse Resp BP Pulse Ox O2 Del Method 02/20/23 07:42 36.9 C 65 19 180/99 H 95 Nasal Cannula 02/20/23 03:48 36.8 C 60 18 167/81 H 91 Nasal Cannula 02/20/23 00:13 36.7 C 58 L 18 144/78 H 95 Nasal Cannula 02/19/23 22:54 60 O2 Flow Rate 02/20/23 07:42 5.0 02/20/23 03:48 5 02/20/23 00:13 5 02/19/23 22:54
--- NOTE | 2023-02-20 09:57 | XCELERA ---
[id number] [id number]
--- NOTE | 2023-02-20 10:02 | Cardiology Consultation ---
Date of Consultation February 20, 2023 Assessment & Plan (1) Aortic stenosis: (2) PAF (paroxysmal atrial fibrillation): (3) Mitral stenosis: (4) (HFpEF) heart failure with preserved ejection fraction: (5) Pulmonary hypertension: (6) Hypotension: (7) Elevated troponin: (8) Mitral insufficiency: (9) Hypertension: Plan ASSESSMENT/PLAN: 1. Severe aortic stenosis: Likely contributing to her poor tolerance of A-fib with RVR and history of heart failure. After discussing with patient and family, aggressive measures are not wanted with a goal of keeping her comfortable. Treatment options were initially discussed, including evaluation for TAVR but after discussion, conservative management. 2. Paroxysmal atrial fibrillation: Was poorly tolerated with underlying severe aortic stenosis, manifesting as hypotension in the ER on 02/19/2023. Complicated by pauses, consistent with tachybradycardia syndrome. Now that she is in sinus rhythm, will initiate loading dose of amiodarone to hopefully maintain sinus rhythm to improve quality of life. Discussed possibility of pacemaker to help with pauses, if A-fib should recur but after discussing with her daughter, Moon, conservative measures are more consistent with patient wishes. She is on anticoagulation for stroke risk reduction. Appropriate dose would be Eliquis 5 mg twice daily. Monitor CBC and renal function. Amiodarone 400 mg twice daily for 8 days and then reduce to 200 mg once daily. Monitor transaminase levels and TSH. 3. Tachybradycardia syndrome: As discussion above. Does not want to pursue pacemaker. Hopefully with maintenance of sinus rhythm, can avoid further pauses that have only occurred thus far during this hospital stay while in A-fib. 4. Mitral stenosis/regurgitation: Nonsevere. Conservative management as above. 5. Elevated troponin: Likely due to demand ischemia in the setting of severe aortic stenosis and A-fib with RVR and transient hypotension with systolic pressures as low as 70 mmHg while in A-fib with RVR. She did not present with acute coronary syndrome. 6. Hypertension: Typically hypertensive and more hypertensive this afternoon. She did not receive amlodipine or losartan. Home medications ordered. They were initially held by admitting service given yesterday's events. 7. Pulmonary hypertension: Severe on echo. Likely multifactorial including severe lung disease/COPD, history of heart failure and valvular heart disease. Conservative measures. 8. Disposition: Cardiology will continue to follow. Recommend palliative care consultation based on patient/family wishes. Patient's daughter, Moon, was agreeable for palliative consultation to help assist/arrange appropriate care as an outpatient as well. Patient care communicated with primary hospitalist, Dr. Musa. Highly complex medical issues. Thank you for allowing me to participate in the care of your patient. Please call for any other questions or concerns. Sincerely, Tee Monroe M.D. History of Present Illness Reason for Consultation: "afib RVR, CHF" Requesting Physician: Joey Yang Attending Physician: Rashida Musa MD History of Present Illness Mrs. Vaughn is a very pleasant 88-year-old female with a history significant for paroxysmal atrial fibrillation, aortic stenosis, mitral regurgitation/stenosis, chronic respiratory failure with hypoxia on supplemental oxygen (4 L at rest and 6 L with exertion), hypertension, heart failure with preserved EF, COPD, dementia, dyslipidemia. Her primary integration manager is Dr. Cruz. Patient was notably confused at times. History was obtained by talking to patient, nursing staff, reviewing records, and phone conversation with her daughter, Moon. She was admitted on 02/19/2023 for shortness of breath. She was also hypoxic with reported oxygen saturations in the 60s%. She denies chest pain, syncope, near syncope, palpitations, edema, or bleeding, but once again her history was inconsistent. Her daughter states that she has been hospitalized frequently and was last discharged on 01/13/2023 and before that on 12/23/2022. She was treated for heart failure with preserved EF and atrial fibrillation. Her daughter states that she has been on and off amiodarone in the past. There has been issues with blood pressure, heart rate, and chronic shortness of breath. She states that the goal has been to keep her mother comfortable, but when she has difficulty breathing, the patient consents to going to the hospital for treatment. When she first came to the ER, she was in sinus rhythm and received intravenous Lasix. She then developed atrial fibrillation with rapid ventricular response at 11:01 AM on 02/19/2023 while still in the ER. She became hypotensive. Amiodarone was started by providers in the ER/admitting hospitalist service, and then she was noted to have pauses while still in atrial fibrillation up to 5.1 seconds. Blood pressure reportedly improved with intravenous fluid. Amiodarone was discontinued and she converted to sinus rhythm at 1758 on 02/19/2023. Since then, she has remained in sinus rhythm and has not had any further pauses. While in atrial fibrillation, she had several pauses however, including a conversion pause of 3.4 seconds. Review of systems: As above. Review of systems otherwise negative/unremarkable. Family history: No known premature CAD. Social history: She denies tobacco, alcohol, or drug abuse. She is but her has advanced Alzheimer's dementia and is currently unresponsive and another care at home. 2 children and she identified her daughter, Moon, as her contact and decision maker. She also has a daughter, Trista, in [place]. She was unaccompanied in her hospital room. Allergies Allergy/AdvReac Type Severity Reaction Status Date / Time bee venom protein (honey bee) Allergy Intermediate HIVES Verified 01/20/22 13:29 oxycodone Allergy Unknown Unknown Verified 01/20/22 13:29 Sulfa (Sulfonamide Allergy Unknown MOUTH Verified 01/20/22 13:29 Antibiotics) SWELLED/HIVES TO SULFA DRUGS, chemical hepatitis gabapentin Allergy Rash Verified 01/20/22 13:29 nitrofurantoin AdvReac Severe CAUSES Verified 01/20/22 13:29 HEPATITUS hydromorphone AdvReac Intermediate HALLUCINATI Verified 01/20/22 13:29 ONS Home Medications Medication Instructions Recorded Confirmed Type ascorbic acid (vitamin C) 500 mg 500 mg PO QAM 02/08/18 02/19/23 History capsule aspirin 81 mg tablet,delayed 81 mg PO QAM 02/08/18 02/19/23 History release cholecalciferol (vitamin D3) 25 1,000 unit PO QAM 02/08/18 02/19/23 History mcg (1,000 unit) tablet (Vitamin D3) omega 5-rjl-cxg-fish oil 1,000 mg 1 cap PO QAM 02/08/18 02/19/23 History (120 mg-180 mg) capsule (Fish Oil) Oxygen Home #1 ea 10/19/18 01/20/22 Rx Flutter Valve #1 ea 02/03/21 01/20/22 Rx Oxygen Home #4 L 05/18/21 01/20/22 Rx albuterol sulfate 90 mcg/actuation 2 inh inhalation Q4H PRN Wheezing 06/08/21 02/19/23 History aerosol inhaler (Ventolin HFA) docusate sodium 100 mg capsule 100 mg PO QPM 06/22/21 02/19/23 History metoprolol succinate 100 mg 100 mg PO QAM #90 tabs 08/11/21 02/19/23 Rx tablet,extended release 24 hr fluticasone 100 mcg-salmeterol 50 1 inh inhalation BID #60 ea 10/04/21 02/19/23 Rx mcg/dose blistr powdr for inhalation (Advair Diskus) cranberry 400 mg capsule 400 mg PO BID 11/09/21 02/19/23 History diphenhydramine HCl 25 mg capsule 25 mg PO HS #30 caps 11/15/21 02/19/23 Rx (Benadryl) melatonin 3 mg tablet 3 mg PO HS #30 tabs 11/15/21 02/19/23 Rx thiamine HCl (vitamin B1) 100 mg 100 mg PO BID #60 tabs 11/15/21 02/19/23 Rx tablet acetaminophen 500 mg tablet 500 mg PO Q4H PRN pain/fever 12/02/21 02/19/23 History ondansetron HCl 4 mg tablet 4 mg PO Q6H PRN N/V 12/02/21 02/19/23 History atorvastatin 20 mg tablet 20 mg PO HS #90 tabs 01/18/22 02/19/23 Rx sertraline 100 mg tablet 150 mg (1.5 x 100 mg) PO PM #135 05/05/22 02/19/23 Rx tabs amoxicillin 250 mg capsule 1,500 mg PO .1H BEFORE PROCEDURE 12/19/22 02/19/23 History buspirone 5 mg tablet 5 mg PO TID 12/19/22 02/19/23 History clotrimazole 1 % topical cream 1 applic topical DAILY PRN rash 12/19/22 02/19/23 History (Antifungal (clotrimazole)) diclofenac sodium 1 % topical gel See Rx Instructions .Route .COMPLEX 12/19/22 02/19/23 History docusate sodium 100 mg capsule 100 mg PO BID PRN Constipation 12/19/22 02/19/23 History lidocaine 4 % topical patch 1 patch topical DAILY 12/19/22 02/19/23 History meclizine 25 mg chewable tablet 25 mg PO BID PRN Dizziness 12/19/22 02/19/23 History apixaban 2.5 mg tablet (Eliquis) 2.5 mg PO Q12H 01/12/23 02/19/23 History levothyroxine 125 mcg tablet 125 mcg PO DAILY 01/12/23 02/19/23 History vitamin E 268 mg (400 unit) capsule 268 mg PO DAILY 01/12/23 02/19/23 History amlodipine 5 mg tablet (Norvasc) 5 mg PO BID #60 tabs 01/13/23 02/19/23 Rx losartan 50 mg tablet 50 mg PO BID #60 tabs 01/13/23 02/19/23 Rx bumetanide 0.5 mg tablet 0.5 mg PO BID 02/19/23 02/19/23 History dextromethorphan-guaifenesin 30 1 tab PO Q12H PRN Congestion 02/19/23 02/19/23 History mg-600 mg tablet extended [id number] hr (Mucinex DM) vit C 250 mg-vit E 90 mg-zinc 40 1 tab PO BID 02/19/23 02/19/23 History mg-copper 1 [id number] capsule (PreserVision AREDS-2) Patient History Medical History Pulmonary hypertension Mitral stenosis (HFpEF) heart failure with preserved ejection fraction PAF (paroxysmal atrial fibrillation) Aortic stenosis Chronic respiratory failure with hypoxia Cough Anemia Hypoxia Noncompliance Pulmonary edema Dyspnea Acute and chronic respiratory failure with hypoxia Paroxysmal SVT (supraventricular tachycardia) COPD (chronic obstructive pulmonary disease) Hypoxia Vertigo Depression Yeast dermatitis Sinus bradycardia Renal cell carcinoma Obesity Mitral insufficiency 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 LO Liver enzyme elevation IN THE PAST (CURRENTLY WNL) Hypothyroidism Macular degeneration Anxiety Hypertension Hyperlipidemia Asthma WELL CONTROLLED PER PT Hypothyroidism Hypertension Surgical History (Updated 01/23/23 @ 00:10 by Background Day) H/O partial nephrectomy right -2001 H/O left radical nephrectomy 1999 History of cardiac cath [facility] - MANY YEARS AGO - REASON? - NO STENTS/ANGIOPLASTY History of esophagogastroduodenoscopy (EGD) History of colonoscopy History of anesthesia reaction SLOW TO WAKE UP History of hysterectomy AND OOPHERECTOMY History of carpal tunnel release RT/ LT History of total knee replacement RT/LEFT Fusion of spine LUMBAR FUSION AND REVISION (2 SURGERIES) History of bladder surgery BLADDER TACK History of thyroidectomy, subtotal History of tooth extraction History of cataract surgery BL Family History Brother History of colon resection Colorectal cancer Diabetes Prostate cancer Sister Breast cancer Mother Diabetes Coronary heart disease Father Myocardial infarction Denies family history of Ovarian cancer Social History Smoking Status: Former smoker Second Hand Exposure: No; Do You Dip or Chew Tobacco: No; Hx Alcohol Use: No Hx Substance Use: No Preferred Language: Romanian Communication Ability: Effective Visual Impairment: No Limitations Hearing Ability: Normal [employer] Operations Center Technician Required: No Beliefs That Will Affect Care: None Current Living Situation: Personal Care Facility Current Living Situation Comment: [facility] current occupational status: retired current occupation: used to be a [employer] How many Children do You have: 2 Other Information That Helps Us Care for You: No Feels Safe at Home: Yes Safety Concerns: Feels Safe At This Time Childhood Exposure to Second-Hand Smoke: No Diet: low salt caffeine: Yes (soda rarley) Dental Care, Regularly: No Physical Activity Frequency: Daily Seatbelt Use: always Sunscreen Use: Yes Assistive Devices: Walker Physical Exam Physical Exam: Gen.: No acute distress. Alert. HEENT: Anicteric sclera. Neck: No JVD. Bilateral bruits vs radiation of cardiac murmur. Sluggish carotid upstrokes bilaterally. Cardiac: No ventricular heave. Regular. Normal S1-S2. 3/6 late peaking systolic ejection murmur heard best at right upper sternal border. No rubs or gallops. Pulmonary: Bibasilar crackles. Abdomen: Soft, nontender, nondistended, with normoactive bowel sounds. No bruits noted. Extremities: 2+ radial pulses bilaterally. 1+ dorsalis pedis pulses bilaterally. No edema or cyanosis. Psychiatric: Affect appears appropriate. Results & Data Vital Signs (Past 12 Hours) Vital Signs Temp Pulse Pulse Resp BP Pulse Ox O2 Del Method 02/20/23 07:42 36.9 C 65 19 180/99 H 95 Nasal Cannula 02/20/23 03:48 36.8 C 60 18 167/81 H 91 Nasal Cannula 02/20/23 00:13 36.7 C 58 L 18 144/78 H 95 Nasal Cannula 02/19/23 22:54 60 O2 Flow Rate 02/20/23 07:42 5.0 02/20/23 03:48 5 02/20/23 00:13 5 02/19/23 22:54 Intake & Output 02/18/23 02/19/23 02/20/23 02/21/23 06:59 06:59 06:59 06:59 Intake Total 1749.345 / 1749.345 540 / 540 Output Total 2625 / 2625 750 / 750 Balance -875.655 / -875.655 -210 / -210 Weight 150 lb 12.739 oz Laboratory Results Laboratory Results - last 24 hr 02/19/23 02/19/23 02/20/23 10:18 12:50 06:01 WBC 9.09 RBC 3.88 L Hgb 10.6 L Hct 32.9 L MCV 84.8 MCH 27.3 MCHC 32.2 RDW Std Deviation 50.4 H RDW Coeff of Yanelis 16.3 H Plt Count 204 MPV 9.9 Immature Gran % (Auto) 0.6 Neut % (Auto) 71.0 Lymph % (Auto) 14.2 Alfalfa % (Auto) 8.4 Eos % (Auto) 5.2 Baso % (Auto) 0.6 Neut # (Auto) 6.47 Lymph # (Auto) 1.29 Alfalfa # (Auto) 0.76 H Eos # (Auto) 0.47 Baso # (Auto) 0.05 Immature Gran # (Auto) 0.05 Sodium 140 Potassium 3.6 Chloride 103 Carbon Dioxide 30 Anion Gap 7 BUN 24 H Creatinine 1.09 Est Cr Clr Drug Dosing 29.4 Est GFR ( Amer) 52.1 Est GFR (Non-Af Amer) 45.0 BUN/Creatinine Ratio 22.0 H Glucose 84 Calcium 8.8 Magnesium 2.1 Troponin I High Sens 39.8 H TSH 0.703 Urine Color Yellow Urine Appearance Clear Urine pH 7.5 Ur Specific Wren 1.020 Urine Protein Negative Urine Glucose (UA) Negative Urine Ketones Negative Urine Blood Trace-intact H Urine Nitrite Negative Urine Bilirubin Negative Urine Urobilinogen Negative Ur Leukocyte Esterase Negative Urine RBC 0-4 Urine WBC 0-5 Ur Epithelial Cells 0-5 Urine Bacteria Negative Hyaline Casts 0-5 Diagnostic Findings ECHO 02/20/23: 1. Normal left ventricular size with hyperdynamic systolic function. EF > 70%. No regional wall motion abnormalities. Severe concentric left ventricular hypertrophy. 2. Severe left atrial dilation. 3. Severe aortic stenosis with trace regurgitation. 4. Mild to moderate mitral regurgitation. 5. Mild mitral stenosis. 6. Severe pulmonary hypertension. Estimated RVSP 69 mmHg. 7. Compared to prior study on 01/12/2023, aortic transvalvular gradient is stable. Labs personally reviewed and notable for minimally elevated high-sensitivity troponin, elevated BNP, stable renal function, normal potassium, normal transaminase levels, mild but stable anemia. Normal TSH. ECGs personally reviewed: ECG 02/19/2023 at 8:02 AM: NSR [address]/T wave abnormality. ECG 02/19/2023 at 11:05 AM: A-fib RVR [address] depression. ECG 02/19/2023 at 1541: A-fib RVR at [address]/T wave abnormality. ECG 02/19/2023 at 1816: NSR [address]/T wave abnormality. History and physical report reviewed. CTA chest 02/19/2023: Motion compromised examination. No PE noted by radiology. No evidence of CHF per radiology. Small pleural effusions. Chronic parenchymal changes and subcentimeter pulmonary nodules in the right lung, likely unchanged from previous. Stable lymphadenopathy. Telemetry personally reviewed: Initially sinus rhythm and developed atrial fibrillation with RVR at approximately 11:01 AM on 02/19/2023 and then converting to sinus rhythm at 1758 on 02/19/2023 with a 3.4-second conversion pause. While in atrial fibrillation, several pauses between 3 and 5.1 seconds were noted. No pauses or significant bradycardia while in sinus rhythm at the time of telemetry evaluation this morning. Medications Administered Current Inpatient Medications Albuterol (Albuterol Hfa 8 Gm Inhaler) 2 puffs INH Q4H PRN PRN Reason: Wheezing Stop: 03/21/23 13:50 Apixaban (Apixaban 2.5 Mg Tab) 2.5 mg PO Q12H [facility] Stop: 03/21/23 20:59 Last Admin: 02/20/23 08:10 Dose: 2.5 mg Aspirin (Aspirin 81 Mg Ectab) 81 mg PO QAM [facility] Stop: 03/22/23 08:59 Last Admin: 02/20/23 08:10 Dose: 81 mg Atorvastatin Calcium (Atorvastatin 20 Mg Tab) 20 mg PO [facility] Stop: 03/21/23 20:59 Last Admin: 02/19/23 21:27 Dose: 20 mg Bumetanide (Bumetanide 1 Mg Tab) 0.5 mg PO BID17 JACQUES Stop: 03/22/23 08:59 Last Admin: 02/20/23 08:10 Dose: 0.5 mg Buspirone HCl (Buspirone 5 Mg Tab) 5 mg PO TID [facility] Stop: 03/21/23 13:59 Last Admin: 02/20/23 08:10 Dose: 5 mg Fluticasone/Vilanterol (Fluticasone/Vilanterol 100/25mcg 14 Puffs/Inhaler) 1 puffs INH DAILY JACQUES Stop: 03/22/23 08:59 Last Admin: 02/20/23 08:11 Dose: 1 puffs Levothyroxine Sodium (Levothyroxine Sodium 125 Mcg Tablet) 125 mcg PO DAILYBB [facility] Stop: 03/22/23 06:29 Last Admin: 02/20/23 05:57 Dose: 125 mcg Melatonin (Melatonin 3 Mg Tab) 3 mg PO [facility] Stop: 03/21/23 20:59 Last Admin: 02/19/23 21:27 Dose: 3 mg Metoprolol Succinate (Metoprolol Succ 50mg Ext Rel Tab) 100 mg PO QAM [facility] Stop: 03/22/23 08:59 Last Admin: 02/20/23 08:10 Dose: 100 mg Sertraline HCl (Sertraline Hcl 50 Mg Tablet) 150 mg PO PM [facility] Stop: 03/21/23 20:59 Last Admin: 02/19/23 21:27 Dose: 150 mg PG Care Time/CCT Total # of Minutes Spent Total Time Spent with Patient: Total time spent is greater than 50% in coordination of care (as documented) at patient's floor/unit and/or counseling patient: Coding Level of Care Code 41027 INT INP/OBS CARE Diagnoses Aortic stenosis I35.0 PAF (paroxysmal atrial fibrillation) I48.0 Mitral stenosis I05.0 (HFpEF) heart failure with preserved ejection fraction I50.30 Pulmonary hypertension I27.20 Hypotension I95.9 Elevated troponin R79.89 Mitral insufficiency I34.0 Hypertension I10
[2023-02-20] MEDS: AMIODARONE 200 MG TAB PO SCH ×2 (13:56→17:52)
[2023-02-20] MEDS: LOSARTAN POTASSIUM 50 MG TAB PO SCH ×2 (13:56→20:19)
[2023-02-20] MEDS ORDERED: ENALAPRILAT 0.625 MG in SYRINGE 9.5 ML IV ONE (17:15)
--- NOTE | 2023-02-20 17:17 | Hospitalist Progress Note ---
Date of Service February 20, 2023 Assessment & Plan (1) Atrial fibrillation with RVR: Plan: -Patient likely went into afib RVR due to preload reduction from 40 mg IV lasix in the ED as the patient has known Aortic stenosis, did not have her am Metoprolol today, and has a mag level of 1.8 Due to her underlying aortic stenosis, she has poor tolerance to rapid A-fib She is now in sinus rhythm On amiodarone 400 mg p.o. twice daily for 8 days, then reduce to 200 mg once daily Continue anticoagulation Patient has tachybradycardia syndrome and does not want to pursue pacemaker Director Of Software Development on board (2) Aortic stenosis: Plan: Patient has severe aortic stenosis Director Of Software Development on board Likely contributing to her poor tolerance of A-fib with RVR Patient does not want surgery or even TAVR. Continue conservative management Consult palliative care per discussion with cardiology (3) Hypotension: Plan: -Became hypotensive after going into afib RVR -Likely due to her unstable arrhythmia -BP is currently stable Blood pressure is rather high since her home medications were held She was restarted on her oral home medications including amlodipine and losartan (4) (HFpEF) heart failure with preserved ejection fraction: Plan: -Patient had been stable on her baseline 4L NC at rest while in the ED -Has a hx of difficulty with controlling volume status, is on BID PO Bumex -BNP had been stable compared to previous admissions -Bumex home dose has been resumed (5) Abnormal urinalysis: Plan: -Patient UA today with positive nitrites, 2+ LE, 5-10 WBC, 4+ bacteria, but with > 30 epithelial cells -Urine itself does not look consistent with infection on inspection of currently eckert contents -UA was obtained prior to Eckert placement in the ED, could be contamination -Patient currently denies urinary symptoms but is also not the most reliable historian -S/P one dose of ceftriaxone in the ED -No leukocytosis, had been stable prior to IV lasix in the ED -Will hold additional abx for now and obtain repeat UA from eckert sample -If concerning findings on repeat UA, new fever, or worsening clinical status will continue antibiotics (6) Hypertension: Plan: -. Resumed amlodipine and losartan Blood pressure still remained high after 3 hours of taking oral medications Ordered a dose of IV enalapril one-time (7) Chronic respiratory failure with hypoxia, on home O2 therapy: Plan: -Currently stable on her 4L NC at rest, uses 6L NC with exertion -Staff at [facility] reported increased hypoxia this am into the 60's with exertion on 6L NC -Volume control is difficult with this patient as she frequently goes into CHF exacerbations but is also high risk for increased diuresis with her moderate -Continue prn O2 -Monitor volume status closely -Incentive spirometry, flutter therapy -Continue home breathing treatments (8) Hypothyroidism: Plan: -Continue levothyroxine (9) CAD (coronary artery disease): Plan: -Denies chest pain -Continue aspirin (10) Demand ischemia: Plan: Elevated troponin is most likely secondary to demand ischemia with severe aortic stenosis, rapid A-fib, transient hypotension. Not acute coronary syndrome. Plan Consult palliative care Continue conservative management Admission and Anticipated Discharge Date Admission Date: February 19, 2023 Subjective Patient feels better compared to when she first came to the hospital. Denies chest pain or shortness of breath at this time. Review of Systems Review of Systems: All systems reviewed & are unremarkable except as noted in Subjective Physical Exam Physical Exam: General: Awake, conversant, very pleasant Heart: S1, S2/regular rate and rhythm, 3/6 systolic murmur best heard in the second intercostal space Lungs: Clear to auscultation bilaterally. Normal effort Abdomen: Soft/nontender/nondistended. No hepatosplenomegaly Extremities: No clubbing/cyanosis. No edema Behavior: Appropriate, cooperative Results & Data Results & Data Vital Signs (Past 12 Hours) Vital Signs Temp Pulse Pulse Resp BP Pulse Ox O2 Del Method 02/20/23 15:22 36.8 C 62 19 183/103 H 92 Nasal Cannula 02/20/23 11:42 36.8 C 61 19 187/103 H 95 Nasal Cannula 02/20/23 10:44 Nasal Cannula 02/20/23 10:32 58 L 02/20/23 07:42 36.9 C 65 19 180/99 H 95 Nasal Cannula O2 Flow Rate 02/20/23 15:22 5.0 02/20/23 11:42 5.0 02/20/23 10:44 6 02/20/23 10:32 02/20/23 07:42 5.0 Laboratory Results Abnormal lab results 02/20/23 Range/Units 06:01 RBC 3.88 L (4.20-5.40) M/uL Hgb 10.6 L (12.0-16.0) g/dl Hct 32.9 L (37.0-47.0) % RDW Std Deviation 50.4 H (36.4-46.3) fL RDW Coeff of Yanelis 16.3 H (11.5-14.5) % [place] # (Auto) 0.76 H (0.11-0.59) K/uL BUN 24 H (6-23) mg/dl BUN/Creatinine Ratio 22.0 H (10-20) Diagnostic Findings Abnormal lab results 02/20/23 Range/Units 06:01 RBC 3.88 L (4.20-5.40) M/uL Hgb 10.6 L (12.0-16.0) g/dl Hct 32.9 L (37.0-47.0) % RDW Std Deviation 50.4 H (36.4-46.3) fL RDW Coeff of Yanelis 16.3 H (11.5-14.5) % [place] # (Auto) 0.76 H (0.11-0.59) K/uL BUN 24 H (6-23) mg/dl BUN/Creatinine Ratio 22.0 H (10-20) PG Care Time/CCT Total # of Minutes Spent Total Time Spent with Patient: Total time spent is greater than 50% in coordination of care (as documented) at patient's floor/unit and/or counseling patient: Coding Level of Care Code 82857 SUB INP/OBS CARE 2/35MIN Diagnoses Atrial fibrillation with RVR I48.91 Aortic stenosis I35.0 Hypotension I95.9 (HFpEF) heart failure with preserved ejection fraction I50.30 Abnormal urinalysis R82.90 Hypertension I10 Chronic respiratory failure with hypoxia, on home O2 therapy J96.11; Z99.81 Hypothyroidism E03.9 CAD (coronary artery disease) I25.10 Demand ischemia I24.89
[2023-02-20] MEDS: APIXABAN 5 MG TABLET PO SCH (19:01)
[2023-02-20] MEDS: amLODIPine BESYLATE 5 MG TAB PO SCH (20:19)
[2023-02-20] MEDS: MELATONIN 3 MG TAB PO SCH (20:20)
[2023-02-20] MEDS: SERTRALINE HCL 50 MG TABLET PO SCH (20:20)
[2023-02-20] MEDS: ATORVASTATIN 20 MG TAB PO SCH (20:20)
--- NOTE | 2023-02-21 05:35 | Electrocardiogram Report ---
Test Reason : Blood Pressure : / mmHG Vent. Rate : 074 BPM Atrial Rate : 074 BPM P-R Int : 142 ms QRS Dur : 106 ms QT Int : 420 ms P-R-T Axes : 000 -28 106 degrees QTc Int : 466 ms Normal sinus rhythm Minimal voltage criteria for LVH, may be normal variant ( Abdoul product ) Nonspecific ST and T wave abnormality Abnormal ECG When compared with ECG of 12-JAN-2023 20:34, Sinus rhythm has replaced Atrial fibrillation Vent. rate has decreased BY [address] no longer depressed in Inferior leads ST no longer depressed in Anterior leads Confirmed by Ventura Monroe ([id number]) on 02/21/2023 5:35:07 AM Referred By: Confirmed By:Ventura Monroe
--- NOTE | 2023-02-21 05:43 | Electrocardiogram Report ---
Test Reason : Blood Pressure : / mmHG Vent. Rate : 137 BPM Atrial Rate : 000 BPM P-R Int : 000 ms QRS Dur : 098 ms QT Int : 342 ms P-R-T Axes : 000 -49 145 degrees QTc Int : 516 ms Atrial fibrillation with rapid ventricular response Left axis deviation Left ventricular hypertrophy ( R in aVL , Elbe product , Romhilt-Castillo ) ST depression, consider subendocardial injury Abnormal ECG When compared with ECG of 19-FEB-2023 08:02, Atrial fibrillation has replaced Sinus rhythm Vent. rate has increased BY [address] more depressed Lateral leads Confirmed by Ventura Monroe ([id number]) on 02/21/2023 5:42:59 AM Referred By: [facility] Confirmed By:Ventura Monroe
[2023-02-21] MEDS: LEVOTHYROXINE SODIUM 125 MCG TABLET PO SCH (05:53)
--- NOTE | 2023-02-21 05:57 | Electrocardiogram Report ---
Test Reason : Blood Pressure : / mmHG Vent. Rate : 117 BPM Atrial Rate : 096 BPM P-R Int : 000 ms QRS Dur : 100 ms QT Int : 368 ms P-R-T Axes : 000 -52 113 degrees QTc Int : 513 ms Atrial fibrillation with rapid ventricular response Left axis deviation Minimal voltage criteria for LVH, may be normal variant Abnormal ECG When compared with ECG of 19-FEB-2023 11:05, ST less depressed in Lateral leads Confirmed by Ventura Monroe ([id number]) on 02/21/2023 5:57:28 AM Referred By: [facility] Confirmed By:Ventura Monroe
--- NOTE | 2023-02-21 06:07 | Electrocardiogram Report ---
Test Reason : Blood Pressure : / mmHG Vent. Rate : 065 BPM Atrial Rate : 065 BPM P-R Int : 172 ms QRS Dur : 098 ms QT Int : 442 ms P-R-T Axes : 025 -44 100 degrees QTc Int : 459 ms Normal sinus rhythm Left axis deviation Nonspecific ST and T wave abnormality Poor R wave progression, consider anterior NM vs. lead placement vs. LVH Abnormal ECG When compared with ECG of 19-FEB-2023 15:41, Sinus rhythm has replaced Atrial fibrillation Vent. rate has decreased BY 52 BPM Confirmed by Ventura Monroe ([id number]) on 02/21/2023 6:07:03 AM Referred By: [facility] Confirmed By:Ventura Monroe
[2023-02-21 06:36] LABS: Basophils # (auto) 0.06 K/uL (0.00-0.20); Basophils % (auto) 0.5 %; Eosinophils # (auto) 0.43 K/uL (0.00-0.50); Eosinophils % (auto) 3.9 %; Hematocrit (blood only) 34.6 % (37.0-47.0); Immature Granulocytes # (auto) 0.06 K/uL (0.01-0.20); Immature Granulocytes % (auto) 0.5 %; Lymphocytes # (auto) 1.07 K/uL (1.20-3.40); Lymphocytes % (auto) 9.8 %; Mean Corpuscular Hgb Conc 31.8 g/dL (32.0-36.0); Mean Platelet Volume 10.2 fL (9.4-12.4); Monocytes # (auto) 0.93 K/uL (0.11-0.59); Monocytes % (auto) 8.5 %; Neutrophils # (auto) 8.42 K/uL (1.40-6.50); Neutrophils % (auto) 76.8 %; Platelet Count 213 K/uL (130-400); RDW Coefficient of Variation 15.7 % (11.5-14.5); RDW Standard Deviation 48.6 fL (36.4-46.3); Red Blood Count 4.07 M/uL (4.20-5.40); White Blood Count 10.97 K/ul (4.8-10.8)
[2023-02-21 07:13] LABS: Est GFR (African American) 60.8 ml/min; Est GFR (Non-African American) 52.4 ml/min; Magnesium 1.8 mg/dl (1.7-2.4); Potassium 3.3 mmol/L (3.5-5.1)
[2023-02-21] MEDS: AMIODARONE 200 MG TAB PO SCH ×3 (08:28→19:26)
[2023-02-21] MEDS: amLODIPine BESYLATE 5 MG TAB PO SCH ×2 (08:29→19:29)
[2023-02-21] MEDS: BUMETANIDE 1 MG TAB PO SCH ×2 (08:30→17:28)
[2023-02-21] MEDS: ASPIRIN 81 MG ECTAB PO SCH (08:30)
[2023-02-21] MEDS: FLUTICASONE/VILANTEROL 100/25MCG 14 PUFFS/INHALER INH SCH (08:40)
[2023-02-21] MEDS: APIXABAN 5 MG TABLET PO SCH ×3 (08:40→19:28)
[2023-02-21] MEDS: busPIRone 5 MG TAB PO SCH ×3 (08:41→19:28)
[2023-02-21] MEDS: METOPROLOL SUCC 50MG EXT REL TAB PO SCH (08:41)
[2023-02-21] MEDS: LOSARTAN POTASSIUM 50 MG TAB PO SCH ×2 (08:41→19:24)
--- NOTE | 2023-02-21 09:25 | Cardiology Consultation ---
Date of Consultation February 21, 2023 History of Present Illness Attending Physician: Rashida Musa MD Allergies Allergy/AdvReac Type Severity Reaction Status Date / Time bee venom protein (honey bee) Allergy Intermediate HIVES Verified 01/20/22 13:29 oxycodone Allergy Unknown Unknown Verified 01/20/22 13:29 Sulfa (Sulfonamide Allergy Unknown MOUTH Verified 01/20/22 13:29 Antibiotics) SWELLED/HIVES TO SULFA DRUGS, chemical hepatitis gabapentin Allergy Rash Verified 01/20/22 13:29 nitrofurantoin AdvReac Severe CAUSES Verified 01/20/22 13:29 HEPATITUS hydromorphone AdvReac Intermediate HALLUCINATI Verified 01/20/22 13:29 ONS Home Medications Medication Instructions Recorded Confirmed Type ascorbic acid (vitamin C) 500 mg 500 mg PO QAM 02/08/18 02/19/23 History capsule aspirin 81 mg tablet,delayed 81 mg PO QAM 02/08/18 02/19/23 History release cholecalciferol (vitamin D3) 25 1,000 unit PO QAM 02/08/18 02/19/23 History mcg (1,000 unit) tablet (Vitamin D3) omega 9-ibr-zsu-fish oil 1,000 mg 1 cap PO QAM 02/08/18 02/19/23 History (120 mg-180 mg) capsule (Fish Oil) Oxygen Home #1 ea 10/19/18 01/20/22 Rx Flutter Valve #1 ea 02/03/21 01/20/22 Rx Oxygen Home #4 L 05/18/21 01/20/22 Rx albuterol sulfate 90 mcg/actuation 2 inh inhalation Q4H PRN Wheezing 06/08/21 02/19/23 History aerosol inhaler (Ventolin HFA) docusate sodium 100 mg capsule 100 mg PO QPM 06/22/21 02/19/23 History metoprolol succinate 100 mg 100 mg PO QAM #90 tabs 08/11/21 02/19/23 Rx tablet,extended release 24 hr fluticasone 100 mcg-salmeterol 50 1 inh inhalation BID #60 ea 10/04/21 02/19/23 Rx mcg/dose blistr powdr for inhalation (Advair Diskus) cranberry 400 mg capsule 400 mg PO BID 11/09/21 02/19/23 History diphenhydramine HCl 25 mg capsule 25 mg PO HS #30 caps 11/15/21 02/19/23 Rx (Benadryl) melatonin 3 mg tablet 3 mg PO HS #30 tabs 11/15/21 02/19/23 Rx thiamine HCl (vitamin B1) 100 mg 100 mg PO BID #60 tabs 11/15/21 02/19/23 Rx tablet acetaminophen 500 mg tablet 500 mg PO Q4H PRN pain/fever 12/02/21 02/19/23 H istory ondansetron HCl 4 mg tablet 4 mg PO Q6H PRN N/V 12/02/21 02/19/23 History atorvastatin 20 mg tablet 20 mg PO HS #90 tabs 01/18/22 02/19/23 Rx sertraline 100 mg tablet 150 mg (1.5 x 100 mg) PO PM #135 05/05/22 02/19/23 Rx tabs amoxicillin 250 mg capsule 1,500 mg PO .1H BEFORE PROCEDURE 12/19/22 02/19/23 History buspirone 5 mg tablet 5 mg PO TID 12/19/22 02/19/23 History clotrimazole 1 % topical cream 1 applic topical DAILY PRN rash 12/19/22 02/19/23 History (Antifungal (clotrimazole)) diclofenac sodium 1 % topical gel See Rx Instructions .Route .COMPLEX 12/19/22 1 04/22/22 History docusate sodium 100 mg capsule 100 mg PO BID PRN Constipation 12/19/22 02/19/23 History lidocaine 4 % topical patch 1 patch topical DAILY 12/19/22 02/19/23 History meclizine 25 mg chewable tablet 25 mg PO BID PRN Dizziness 12/19/22 02/19/23 History apixaban 2.5 mg tablet (Eliquis) 2.5 mg PO Q12H 01/12/23 02/19/23 History levothyroxine 125 mcg tablet 125 mcg PO DAILY 01/12/23 02/19/23 History vitamin E 268 mg (400 unit) capsule 268 mg PO DAILY 01/12/23 02/19/23 History amlodipine 5 mg tablet (Norvasc) 5 mg PO BID #60 tabs 01/13/23 02/19/23 Rx losartan 50 mg tablet 50 mg PO BID #60 tabs 01/13/23 02/19/23 Rx bumetanide 0.5 mg tablet 0.5 mg PO BID 02/19/23 02/19/23 History dextromethorphan-guaifenesin 30 1 tab PO Q12H PRN Congestion 02/19/23 02/19/23 History mg-600 mg tablet extended [id number] hr (Mucinex DM) vit C 250 mg-vit E 90 mg-zinc 40 1 tab PO BID 02/19/23 02/19/23 History mg-copper 1 [id number]-vmusrw capsule (PreserVision AREDS-2) Patient History Medical History Pulmonary hypertension Mitral stenosis (HFpEF) heart failure with preserved ejection fraction PAF (paroxysmal atrial fibrillation) Aortic stenosis Chronic respiratory failure with hypoxia Cough Anemia Hypoxia Noncompliance Pulmonary edema Dyspnea Acute and chronic respiratory failure with hypoxia Paroxysmal SVT (supraventricular tachycardia) COPD (chronic obstructive pulmonary disease) Hypoxia Vertigo Depression Yeast dermatitis Sinus bradycardia Renal cell carcinoma Obesity Mitral insufficiency 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 LO Liver enzyme elevation IN THE PAST (CURRENTLY WNL) Hypothyroidism Macular degeneration Anxiety Hypertension Hyperlipidemia Asthma WELL CONTROLLED PER PT Hypothyroidism Hypertension Surgical History (Updated 01/23/23 @ 00:10 by Background Day) H/O partial nephrectomy right -2001 H/O left radical nephrectomy 1999 History of cardiac cath [facility] – [place] - MANY YEARS AGO - REASON? - NO STENTS/ANGIOPLASTY History of esophagogastroduodenoscopy (EGD) History of colonoscopy History of anesthesia reaction SLOW TO WAKE UP History of hysterectomy AND OOPHERECTOMY History of carpal tunnel release RT/ LT History of total knee replacement RT/LEFT Fusion of spine LUMBAR FUSION AND REVISION (2 SURGERIES) History of bladder surgery BLADDER TACK History of thyroidectomy, subtotal History of tooth extraction History of cataract surgery BL Family History Brother History of colon resection Colorectal cancer Diabetes Prostate cancer Sister Breast cancer Mother Diabetes Coronary heart disease Father Myocardial infarction Denies family history of Ovarian cancer Social History Smoking Status: Former smoker Second Hand Exposure: No; Do You Dip or Chew Tobacco: No; Hx Alcohol Use: No Hx Substance Use: No Preferred Language: German Communication Ability: Effective Visual Impairment: No Limitations Hearing Ability: Normal Wallpaper 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 Steam Required: No Beliefs That Will Affect Care: None Current Living Situation: Personal Care Facility Current Living Situation Comment: [facility] current occupational status: retired 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 How many Children do You have: 2 Other Information That Helps Us Care for You: No Feels Safe at Home: Yes Safety Concerns: Feels Safe At This Time Childhood Exposure to Second-Hand Smoke: No Diet: low salt caffeine: Yes (soda rarley) Dental Care, Regularly: No Physical Activity Frequency: Daily Seatbelt Use: always Sunscreen Use: Yes Assistive Devices: Walker Review of Systems Constitutional: + fatigue and + weakness; no fever and n o chills Respiratory: no cough, no chest congestion and no dyspnea Cardiovascular: no chest pain, no dyspnea and no palpitations Gastrointestinal: no abdominal pain, no nausea, no vomiting, no constipation and no diarrhea/loose stools Genitourinary: no dysuria, no urinary frequency, no urinary urgency, no nocturia and no hematuria Musculoskeletal: + joint pain (shoulder pain) Physical Exam Constitutional: WD/WN, vitals as above Respiratory: normal respiratory effort, lungs clear to auscultation Cardiovascular: RRR, no murmur, no edema Psychiatric: A+Ox3, euthymic affect Results & Data Vital Signs (Past 12 Hours) Vital Signs Temp Pulse Pulse Resp BP Pulse Ox O2 Del Method 02/21/23 08:08 36.7 C 66 18 153/81 H 93 Nasal Cannula 02/21/23 03:28 36.5 C 65 20 185/102 H 93 Nasal Cannula 02/20/23 23:19 71 02/20/23 22:40 36.8 C 58 L 20 154/88 H 94 Nasal Cannula O2 Flow Rate 02/21/23 08:08 5.0 02/21/23 03:28 5 02/20/23 23:19 02/20/23 22:40 6
--- NOTE | 2023-02-21 12:30 | Cardiology Progress Note ---
Date of Service February 21, 2023 Assessment & Plan (1) Aortic stenosis: (2) PAF (paroxysmal atrial fibrillation): (3) Mitral stenosis: (4) (HFpEF) heart failure with preserved ejection fraction: (5) Pulmonary hypertension: (6) Hypotension: (7) Elevated troponin: (8) Mitral insufficiency: (9) Hypertension: Plan ASSESSMENT/PLAN: 1. Severe aortic stenosis: Likely contributing to her poor tolerance of A-fib with RVR and history of heart failure. After discussing with patient and family, aggressive measures are not wanted, but rather a goal of keeping her comfortable. Treatment options were initially discussed, including evaluation for TAVR but after discussion, conservative management. 2. Paroxysmal atrial fibrillation: Was poorly tolerated with underlying severe aortic stenosis, manifesting as hypotension in the ER on 02/19/2023. Complicated by pauses, consistent with tachybradycardia syndrome. Continue amiodarone in hopes of maintaining sinus rhythm to improve her quality of life. Discussed with family possibility of pacemaker but pacemaker was declined in favor of conservative measures. She is on anticoagulation for stroke risk reduction. Appropriate dose would be Eliquis 5 mg twice daily. Monitor CBC and renal function. Amiodarone 400 mg twice daily for 8 days and then reduce to 200 mg once daily. Monitor transaminase levels and TSH. 3. Tachybradycardia syndrome: As discussion above. Patient/family does not want to pursue pacemaker. Hopefully with maintenance of sinus rhythm, can avoid further pauses that have only occurred thus far during this hospital stay while in A-fib. Will reduce metoprolol succinate to 50 mg daily as would expect slower heart rates once amiodarone is fully loaded. 4. Mitral stenosis/regurgitation: Nonsevere. Conservative management as above. 5. Elevated troponin: Likely due to demand ischemia in the setting of severe aortic stenosis and A-fib with RVR and transient hypotension with systolic pressures as low as 70 mmHg while in A-fib with RVR. She did not present with acute coronary syndrome. 6. Hypertension: Blood pressure improved with her home medications. Current blood pressure is acceptable. 7. Pulmonary hypertension: Severe on echo. Likely multifactorial including severe lung disease/COPD, history of heart failure and valvular heart disease. Conservative measures. 8. Disposition: Dr. Cruz to resume her cardiology care tomorrow. Recommend palliative care consultation based on patient/family wishes. Patient's daughter, Moon, was agreeable for palliative consultation to help assist/arrange appropriate care as an outpatient as well. Admission and Anticipated Discharge Date Admission Date: February 19, 2023 Subjective Patient seen this morning. She denied any significant shortness of breath. She denies chest pain, palpitations. No reported syncope. Her only complaint was shoulder pain which apparently is chronic. She asked when she can have injections. Nursing staff states that she has had confusion. She pulled out her Maldonado catheter and her IV yesterday. She was alone in her hospital room. Physical Exam Physical Exam: Gen.: No acute distress. Alert. HEENT: Anicteric sclera. Neck: No JVD. Cardiac: No ventricular heave. Regular. Normal S1-S2. 3/6 late peaking systolic ejection murmur heard best at right upper sternal border. No rubs or gallops. Pulmonary: Bibasilar crackles. Abdomen: Soft, nontender, nondistended, with normoactive bowel sounds. No bruits noted. Extremities: 2+ radial pulses bilaterally. 1+ dorsalis pedis pulses bilaterally. No edema or cyanosis. Results & Data Vital Signs (Past 12 Hours) Vital Signs Temp Pulse Resp BP Pulse Ox O2 Del Method O2 Flow Rate 02/21/23 08:08 36.7 C 66 18 153/81 H 93 Nasal Cannula 5.0 02/21/23 03:28 36.5 C 65 20 185/102 H 93 Nasal Cannula 5 Intake & Output 02/19/23 02/20/23 02/21/23 02/22/23 06:59 06:59 06:59 06:59 Intake Total 1749.345 / 1749.345 810 / 810 Output Total 2625 / 2625 1900 / 1900 Balance -875.655 / -875.655 -1090 / -1090 Weight 150 lb 12.739 oz 146 lb 13.246 oz Laboratory Results Laboratory Results - last 24 hr 02/21/23 06:15 WBC 10.97 H RBC 4.07 L Hgb 11.0 L Hct 34.6 L MCV 85.0 MCH 27.0 MCHC 31.8 L RDW Std Deviation 48.6 H RDW Coeff of Yanelis 15.7 H Plt Count 213 MPV 10.2 Immature Gran % (Auto) 0.5 Neut % (Auto) 76.8 Lymph % (Auto) 9.8 [place] % (Auto) 8.5 Eos % (Auto) 3.9 Baso % (Auto) 0.5 Neut # (Auto) 8.42 H Lymph # (Auto) 1.07 L [place] # (Auto) 0.93 H Eos # (Auto) 0.43 Baso # (Auto) 0.06 Immature Gran # (Auto) 0.06 Sodium 140 Potassium 3.3 L Chloride 103 Carbon Dioxide 28 Anion Gap 9 BUN 23 Creatinine 0.96 Est Cr Clr Drug Dosing 33.0 Est GFR ( Amer) 60.8 Est GFR (Non-Af Amer) 52.4 BUN/Creatinine Ratio 24.0 H Glucose 93 Calcium 9.0 Magnesium 1.8 Diagnostic Findings Telemetry personally reviewed: Sinus rhythm. Very brief episode of nonsustained atrial tachycardia. No further atrial fibrillation since 02/19/2023. Labs reviewed and notable for stable anemia, stable renal function, mild hypokalemia. Medications Administered Current Inpatient Medications Albuterol (Albuterol Hfa 8 Gm Inhaler) 2 puffs INH Q4H PRN PRN Reason: Wheezing Stop: 03/21/23 13:50 Amiodarone HCl (Amiodarone 200 Mg Tab) 400 mg PO BIDM [facility] Stop: 03/22/23 12:49 Last Admin: 02/21/23 08:28 Dose: 400 mg Amlodipine Besylate (Amlodipine Besylate 5 Mg Tab) 5 mg PO BID [facility] Stop: 03/22/23 20:59 Last Admin: 02/21/23 08:29 Dose: 5 mg Apixaban (Apixaban 5 Mg Tablet) 5 mg PO Q12H JACQUES Stop: 03/22/23 18:59 Last Admin: 02/21/23 08:40 Dose: 5 mg Aspirin (Aspirin 81 Mg Ectab) 81 mg PO QAM [facility] Stop: 03/22/23 08:59 Last Admin: 02/21/23 08:30 Dose: 81 mg Atorvastatin Calcium (Atorvastatin 20 Mg Tab) 20 mg PO HS [facility] Stop: 03/21/23 20:59 Last Admin: 02/20/23 20:20 Dose: 20 mg Bumetanide (Bumetanide 1 Mg Tab) 0.5 mg PO BID17 [facility] Stop: 03/22/23 08:59 Last Admin: 02/21/23 08:30 Dose: 0.5 mg Buspirone HCl (Buspirone 5 Mg Tab) 5 mg PO TID [facility] Stop: 03/21/23 13:59 Last Admin: 02/21/23 08:41 Dose: 5 mg Fluticasone/Vilanterol (Fluticasone/Vilanterol 100/25mcg 14 Puffs/Inhaler) 1 puffs INH DAILY [facility]AC[facility] Stop: 03/22/23 08:59 Last Admin: 02/21/23 08:40 Dose: 1 puffs Levothyroxine Sodium (Levothyroxine Sodium 125 Mcg Tablet) 125 mcg PO DAILYBB [facility] Stop: 03/22/23 06:29 Last Admin: 02/21/23 05:53 Dose: Not Given Losartan Potassium (Losartan Potassium 50 Mg Tab) 50 mg PO BID [facility] Stop: 03/22/23 12:59 Last Admin: 02/21/23 08:41 Dose: 50 mg Melatonin (Melatonin 3 Mg Tab) 3 mg PO HS [facility] Stop: 03/21/23 20:59 Last Admin: 02/20/23 20:20 Dose: 3 mg Metoprolol Succinate (Metoprolol Succ 50mg Ext Rel Tab) 100 mg PO QAM [facility] Stop: 03/22/23 08:59 Last Admin: 02/21/23 08:41 Dose: 100 mg Sertraline HCl (Sertraline Hcl 50 Mg Tablet) 150 mg PO PM [facility] Stop: 03/21/23 20:59 Last Admin: 02/20/23 20:20 Dose: 150 mg PG Care Time/CCT Total # of Minutes Spent Total Time Spent with Patient: Total time spent is greater than 50% in coordination of care (as documented) at patient's floor/unit and/or counseling patient: Coding Level of Care Code 94582 SUB INP/OBS CARE 3/50MIN Diagnoses Aortic stenosis I35.0 PAF (paroxysmal atrial fibrillation) I48.0 Mitral stenosis I05.0 (HFpEF) heart failure with preserved ejection fraction I50.30 Pulmonary hypertension I27.20 Hypotension I95.9 Elevated troponin R79.89 Mitral insufficiency I34.0 Hypertension I10
[2023-02-21] MEDS: cefTRIAXone SODIUM 1,000 MG in DEXTROSE 5 % MINI-B 50 ML IV SCH (13:16)
--- NOTE | 2023-02-21 17:26 | Hospitalist Progress Note ---
Date of Service February 21, 2023 Assessment & Plan (1) Atrial fibrillation with RVR: Plan: -Patient likely went into afib RVR due to preload reduction from 40 mg IV lasix in the ED as the patient has known Aortic stenosis, did not have her am Metoprolol today, and has a mag level of 1.8 Due to her underlying aortic stenosis, she has poor tolerance to rapid A-fib She is now in sinus rhythm On amiodarone 400 mg p.o. twice daily for 8 days, then reduce to 200 mg once daily Continue anticoagulation Patient has tachybradycardia syndrome and does not want to pursue pacemaker Torpedo Man on board (2) Aortic stenosis: Plan: Patient has severe aortic stenosis Torpedo Man on board Likely contributing to her poor tolerance of A-fib with RVR Patient does not want surgery or even TAVR. Continue conservative management Awaiting palliative care evaluation (3) Hypotension: Plan: -Became hypotensive after going into afib RVR -Likely due to her unstable arrhythmia -BP is currently stable Blood pressure is rather high since her home medications were held She was restarted on her oral home medications including amlodipine and losartan (4) (HFpEF) heart failure with preserved ejection fraction: Plan: -Patient had been stable on her baseline 4L NC at rest while in the ED -Has a hx of difficulty with controlling volume status, is on BID PO Bumex -BNP had been stable compared to previous admissions -Bumex home dose has been resumed (5) Abnormal urinalysis: Plan: -Urine culture growing E. coli Patient is confused today and her white count is elevated. Decided to continue ceftriaxone that was given in the emergency room. Will treat her for UTI since the clinical picture fits the diagnosis (6) Hypertension: Plan: -. Resumed amlodipine and losartan Better controlled today but still on the high side. Will monitor (7) Chronic respiratory failure with hypoxia, on home O2 therapy: Plan: -Currently stable on her 4L NC at rest, uses 6L NC with exertion -Staff at [facility] reported increased hypoxia this am into the 60's with exertion on 6L NC -Volume control is difficult with this patient as she frequently goes into CHF exacerbations but is also high risk for increased diuresis with her moderate -Continue prn O2 -Monitor volume status closely -Incentive spirometry, flutter therapy -Continue home breathing treatments (8) Hypothyroidism: Plan: -Continue levothyroxine (9) CAD (coronary artery disease): Plan: -Denies chest pain -Continue aspirin (10) Demand ischemia: Plan: Elevated troponin is most likely secondary to demand ischemia with severe aortic stenosis, rapid A-fib, transient hypotension. Not acute coronary syndrome. Plan Awaiting palliative care Continue conservative management Admission and Anticipated Discharge Date Admission Date: February 19, 2023 Subjective Patient was confused earlier. She says that she is able to think straight now. Her "mind was foggy earlier, now clearing up" Review of Systems Review of Systems: All systems reviewed & are unremarkable except as noted in Subjective Physical Exam Physical Exam: General: Awake, conversant Heart: S1, S2/regular rate and rhythm, 3/6 systolic murmur best heard in the second intercostal space Lungs: Clear to auscultation bilaterally. Normal effort Abdomen: Soft/nontender/nondistended. No hepatosplenomegaly Extremities: No clubbing/cyanosis. No edema Behavior: Appropriate, cooperative Results & Data Results & Data Vital Signs (Past 12 Hours) Vital Signs Temp Pulse Pulse Resp BP Pulse Ox O2 Del Method 02/21/23 16:18 62 02/21/23 15:25 36.8 C 61 18 169/87 H 91 Nasal Cannula 02/21/23 15:20 Nasal Cannula 02/21/23 12:33 36.8 C 62 19 185/83 H 96 Nasal Cannula 02/21/23 08:08 36.7 C 66 18 153/81 H 93 Nasal Cannula 02/21/23 08:00 76 02/21/23 08:00 Nasal Cannula O2 Flow Rate 02/21/23 16:18 02/21/23 15:25 5.0 02/21/23 15:20 6 02/21/23 12:33 5.0 02/21/23 08:08 5.0 02/21/23 08:00 02/21/23 08:00 6 Laboratory Results Abnormal lab results 02/21/23 Range/Units 06:15 WBC 10.97 H (4.8-10.8) K/ul RBC 4.07 L (4.20-5.40) M/uL Hgb 11.0 L (12.0-16.0) g/dl Hct 34.6 L (37.0-47.0) % MCHC 31.8 L (32.0-36.0) g/dL RDW Std Deviation 48.6 H (36.4-46.3) fL RDW Coeff of Yanelis 15.7 H (11.5-14.5) % Neut # (Auto) 8.42 H (1.40-6.50) K/uL Lymph # (Auto) 1.07 L (1.20-3.40) K/uL [place] # (Auto) 0.93 H (0.11-0.59) K/uL Potassium 3.3 L (3.5-5.1) mmol/L BUN/Creatinine Ratio 24.0 H (10-20) PG Care Time/CCT Total # of Minutes Spent Total Time Spent with Patient: Total time spent is greater than 50% in coordination of care (as documented) at patient's floor/unit and/or counseling patient: Coding Level of Care Code 10480 SUB INP/OBS CARE 2/35MIN Diagnoses Atrial fibrillation with RVR I48.91 Aortic stenosis I35.0 Hypotension I95.9 (HFpEF) heart failure with preserved ejection fraction I50.30 Abnormal urinalysis R82.90 Hypertension I10 Chronic respiratory failure with hypoxia, on home O2 therapy J96.11; Z99.81 Hypothyroidism E03.9 CAD (coronary artery disease) I25.10 Demand ischemia I24.89
[2023-02-21] MEDS: SERTRALINE HCL 50 MG TABLET PO SCH (19:29)
[2023-02-21] MEDS: ATORVASTATIN 20 MG TAB PO SCH (19:31)
[2023-02-21] MEDS: MELATONIN 3 MG TAB PO SCH (19:31)
--- NOTE | 2023-02-21 22:41 | Palliative Care Consultation ---
Date of Consultation February 21, 2023 Assessment & Plan (1) Altered mental status: Altered mental status type: delirium Qualified Code(s): R41.0 - Disorientation, unspecified (2) Palliative care by specialist: (3) (HFpEF) heart failure with preserved ejection fraction: Heart failure chronicity: acute on chronic Qualified Code(s): I50.33 - Acute on chronic diastolic (congestive) heart failure (4) Aortic stenosis: Cardiac valve disease etiology: etiology unspecified Qualified Code(s): I35.0 - Nonrheumatic aortic (valve) stenosis (5) UTI (urinary tract infection) due to Enterococcus: Plan * Pt is not decisional at time of my visit this morning. * Nursing caught a very important detail that she has e coli growing in her urine cx and abtx was stopped and now AMS worsening. I updated primary team, may need Abtx restarted and re eval in 48 hr * Will try to revisit for goals of care conversation. Would note however pt is historically quite clear in her goals -she does not want any aggressive or invasive intervention or procedure. She appears to understand the nature of her heart disease is fairly advanced and therefore recommendations at this point should not include discussions about the procedure type she does not want but rather focus on interventions or supportive resources that provide more care and support for symptom management and quality of life. Recommend that if her mental status improves, a conversation be held with her with regards to what she would want the medical team to focus on at this point knowing she does not want further interventions. If she is able to clearly elucidate a desire for focus on quality of life and comfort, and the options moving forward are either skilled facility placement with comfort care versus home with hospice if she has enough family and caregiver support. Care management can help elucidate whether or not either these options are a better fit for patient. I am happy to revisit to help with the more structured goals of care conversation if escalation to that level is necessary after primary attempts. Thank you for allowing us to participate in the ongoing care of this patient. Please don't hesitate to call or page with any additional concerns. Dr. Chasidy Atkins DNP Director, Palliative Care History of Present Illness Reason for Consultation: goals of care Attending Physician: Rashida Musa MD History of Present Illness Ruthy Vaughn is an 88yo female with AMS, worsening in past 1-2 days per nursing who also note she had 2 doses Abtx for UTI which was then stopped, concern that perhaps worsening AMS is from infection vs dementia signif cardiac disease with A fib/RVR, Ao stenosis/severe - pt declines surgery and TAVR, recurrent hypotension, HFpEF, CAD Allergies Allergy/AdvReac Type Severity Reaction Status Date / Time bee venom protein (honey bee) Allergy Intermediate HIVES Verified 01/20/22 13:29 oxycodone Allergy Unknown Unknown Verified 01/20/22 13:29 Sulfa (Sulfonamide Allergy Unknown MOUTH Verified 01/20/22 13:29 Antibiotics) SWELLED/HIVES TO SULFA DRUGS, chemical hepatitis gabapentin Allergy Rash Verified 01/20/22 13:29 nitrofurantoin AdvReac Severe CAUSES Verified 01/20/22 13:29 HEPATITUS hydromorphone AdvReac Intermediate HALLUCINATI Verified 01/20/22 13:29 ONS Home Medications Medication Instructions Recorded Confirmed Type ascorbic acid (vitamin C) 500 mg 500 mg PO QAM 02/08/18 02/19/23 History capsule aspirin 81 mg tablet,delayed 81 mg PO QAM 02/08/18 02/19/23 History release cholecalciferol (vitamin D3) 25 1,000 unit PO QAM 02/08/18 02/19/23 History mcg (1,000 unit) tablet (Vitamin D3) omega 0-umu-aom-fish oil 1,000 mg 1 cap PO QAM 02/08/18 02/19/23 History (120 mg-180 mg) capsule (Fish Oil) Oxygen Home #1 ea 10/19/18 01/20/22 Rx Flutter Valve #1 ea 02/03/21 01/20/22 Rx Oxygen Home #4 L 05/18/21 01/20/22 Rx albuterol sulfate 90 mcg/actuation 2 inh inhalation Q4H PRN Wheezing 06/08/21 02/19/23 History aerosol inhaler (Ventolin HFA) docusate sodium 100 mg capsule 100 mg PO QPM 06/22/21 02/19/23 History metoprolol succinate 100 mg 100 mg PO QAM #90 tabs 08/11/21 02/19/23 Rx tablet,extended release 24 hr fluticasone 100 mcg-salmeterol 50 1 inh inhalation BID #60 ea 10/04/21 02/19/23 Rx mcg/dose blistr powdr for inhalation (Advair Diskus) cranberry 400 mg capsule 400 mg PO BID 11/09/21 02/19/23 History diphenhydramine HCl 25 mg capsule 25 mg PO HS #30 caps 11/15/21 02/19/23 Rx (Benadryl) melatonin 3 mg tablet 3 mg PO HS #30 tabs 11/15/21 02/19/23 Rx thiamine HCl (vitamin B1) 100 mg 100 mg PO BID #60 tabs 11/15/21 02/19/23 Rx tablet acetaminophen 500 mg tablet 500 mg PO Q4H PRN pain/fever 12/02/21 02/19/23 History ondansetron HCl 4 mg tablet 4 mg PO Q6H PRN N/V 12/02/21 02/19/23 History atorvastatin 20 mg tablet 20 mg PO HS #90 tabs 01/18/22 02/19/23 Rx sertraline 100 mg tablet 150 mg (1.5 x 100 mg) PO PM #135 05/05/22 02/19/23 Rx tabs amoxicillin 250 mg capsule 1,500 mg PO .1H BEFORE PROCEDURE 12/19/22 02/19/23 History buspirone 5 mg tablet 5 mg PO TID 12/19/22 02/19/23 History clotrimazole 1 % topical cream 1 applic topical DAILY PRN rash 12/19/22 02/19/23 History (Antifungal (clotrimazole)) diclofenac sodium 1 % topical gel See Rx Instructions .Route .COMPLEX 12/19/22 02/19/23 History docusate sodium 100 mg capsule 100 mg PO BID PRN Constipation 12/19/22 02/19/23 History lidocaine 4 % topical patch 1 patch topical DAILY 12/19/22 02/19/23 History meclizine 25 mg chewable tablet 25 mg PO BID PRN Dizziness 12/19/22 02/19/23 History apixaban 2.5 mg tablet (Eliquis) 2.5 mg PO Q12H 01/12/23 02/19/23 History levothyroxine 125 mcg tablet 125 mcg PO DAILY 01/12/23 02/19/23 History vitamin E 268 mg (400 unit) capsule 268 mg PO DAILY 01/12/23 02/19/23 History amlodipine 5 mg tablet (Norvasc) 5 mg PO BID #60 tabs 01/13/23 02/19/23 Rx losartan 50 mg tablet 50 mg PO BID #60 tabs 01/13/23 02/19/23 Rx bumetanide 0.5 mg tablet 0.5 mg PO BID 02/19/23 02/19/23 History dextromethorphan-guaifenesin 30 1 tab PO Q12H PRN Congestion 02/19/23 02/19/23 History mg-600 mg tablet extended [id number] hr (Mucinex DM) vit C 250 mg-vit E 90 mg-zinc 40 1 tab PO BID 02/19/23 02/19/23 History mg-copper 1 tk-shicwq-oaspdz capsule (PreserVision AREDS-2) Patient History Medical History Pulmonary hypertension Mitral stenosis (HFpEF) heart failure with preserved ejection fraction PAF (paroxysmal atrial fibrillation) Aortic stenosis Chronic respiratory failure with hypoxia Cough Anemia Hypoxia Noncompliance Pulmonary edema Dyspnea Acute and chronic respiratory failure with hypoxia Paroxysmal SVT (supraventricular tachycardia) COPD (chronic obstructive pulmonary disease) Hypoxia Vertigo Depression Yeast dermatitis Sinus bradycardia Renal cell carcinoma Obesity Mitral insufficiency 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 LO Liver enzyme elevation IN THE PAST (CURRENTLY WNL) Hypothyroidism Macular degeneration Anxiety Hypertension Hyperlipidemia Asthma WELL CONTROLLED PER PT Hypothyroidism Hypertension Surgical History (Updated 01/23/23 @ 00:10 by Khoa Bernstein) H/O partial nephrectomy right -2001 H/O left radical nephrectomy 1999 History of cardiac cath [facility] [place] - MANY YEARS AGO - REASON? - NO STENTS/ANGIOPLASTY History of esophagogastroduodenoscopy (EGD) History of colonoscopy History of anesthesia reaction SLOW TO WAKE UP History of hysterectomy AND OOPHERECTOMY History of carpal tunnel release RT/ LT History of total knee replacement RT/LEFT Fusion of spine LUMBAR FUSION AND REVISION (2 SURGERIES) History of bladder surgery BLADDER TACK History of thyroidectomy, subtotal History of tooth extraction History of cataract surgery BL Family History Brother History of colon resection Colorectal cancer Diabetes Prostate cancer Sister Breast cancer Mother Diabetes Coronary heart disease Father Myocardial infarction Denies family history of Ovarian cancer Social History Smoking Status: Former smoker Second Hand Exposure: No; Do You Dip or Chew Tobacco: No; Hx Alcohol Use: No Hx Substance Use: No Preferred Language: Maori Communication Ability: Effective Visual Impairment: No Limitations Hearing Ability: Normal Commercial Credit Reviewer Required: No Beliefs That Will Affect Care: None Current Living Situation: Personal Care Facility Current Living Situation Comment: [facility] current occupational status: retired 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 How many Children do You have: 2 Other Information That Helps Us Care for You: No Feels Safe at Home: Yes Safety Concerns: Feels Safe At This Time Childhood Exposure to Second-Hand Smoke: No Diet: low salt caffeine: Yes (soda rarley) Dental Care, Regularly: No Physical Activity Frequency: Daily Seatbelt Use: always Sunscreen Use: Yes Assistive Devices: Walker Review of Systems Review of Systems: Unobtainable due to cognitive status Physical Exam Physical Exam: restless and confused mild resp distress does not allow much examination deferred exam at this time Results & Data Vital Signs (Past 12 Hours) Vital Signs Temp Pulse Pulse Resp BP Pulse Ox O2 Del Method 02/21/23 19:25 189/95 H 02/21/23 19:00 36.4 C L 59 L 18 184/85 H 95 Nasal Cannula 02/21/23 16:18 62 02/21/23 15:25 36.8 C 61 18 169/87 H 91 Nasal Cannula 02/21/23 15:20 Nasal Cannula 02/21/23 12:33 36.8 C 62 19 185/83 H 96 Nasal Cannula O2 Flow Rate 02/21/23 19:25 02/21/23 19:00 02/21/23 16:18 02/21/23 15:25 5.0 02/21/23 15:20 6 02/21/23 12:33 5.0 Laboratory Results data reviewed Diagnostic Findings data reviewed PG Care Time/CCT Total # of Minutes Spent Total Time Spent: 65 Total Time Spent with Patient: Total time spent is greater than 50% in coordination of care (as documented) at patient's floor/unit and/or counseling patient: I spent 65 minutes overall addressing this case: 20 min in medical data review/discussion with referring provider(s) and/or preparation for the visit 25 min in direct interaction with the patient/exam 00 min in Advance Care Planning/Goals of Care discussions as detailed above in note (must be >16min) 5 min in subsequent review and synthesis of assessment and plan 15 min communicating with other providers regarding the patient's case: [place] [address] IN/OBS CONSULT LVL 4,60M Patient Type New History Comprehensive Exam Comprehensive Medical Decision Making High Complexity Diagnoses Delirium R41.0 Altered mental status type: delirium Palliative care by specialist Z51.5 Acute on chronic heart failure with preserved ejection fraction I50.33 Heart failure chronicity: acute on chronic Aortic valve stenosis, etiology of cardiac valve disease unspecified I35.0 Cardiac valve disease etiology: etiology unspecified UTI (urinary tract infection) due to Enterococcus N39.0; B95.2
[2023-02-22] MEDS: LEVOTHYROXINE SODIUM 125 MCG TABLET PO SCH (05:50)
[2023-02-22 06:31] LABS: Basophils # (auto) 0.08 K/uL (0.00-0.20); Basophils % (auto) 0.8 %; Eosinophils # (auto) 0.46 K/uL (0.00-0.50); Eosinophils % (auto) 4.5 %; Hematocrit (blood only) 36.1 % (37.0-47.0); Hemoglobin 11.7 g/dl (12.0-16.0); Immature Granulocytes # (auto) 0.07 K/uL (0.01-0.20); Immature Granulocytes % (auto) 0.7 %; Lymphocytes # (auto) 1.17 K/uL (1.20-3.40); Lymphocytes % (auto) 11.6 %; Mean Corpuscular Hemoglobin 27.2 pg (25.0-34.0); Mean Corpuscular Hgb Conc 32.4 g/dL (32.0-36.0); Monocytes # (auto) 0.89 K/uL (0.11-0.59); Monocytes % (auto) 8.8 %; Neutrophils # (auto) 7.44 K/uL (1.40-6.50); Neutrophils % (auto) 73.6 %; Platelet Count 216 K/uL (130-400); RDW Coefficient of Variation 15.7 % (11.5-14.5); RDW Standard Deviation 47.4 fL (36.4-46.3); White Blood Count 10.11 K/ul (4.8-10.8)
[2023-02-22 06:53] LABS: BUN Creatinine Ratio 21.9 (10-20); Creatinine Clr Calc Pharmacy 32.4 ml/min; Est GFR (African American) 60.8 ml/min; Est GFR (Non-African American) 52.4 ml/min; Magnesium 1.8 mg/dl (1.7-2.4); Potassium 3.4 mmol/L (3.5-5.1)
[2023-02-22] MEDS: ASPIRIN 81 MG ECTAB PO SCH (07:50)
[2023-02-22] MEDS: busPIRone 5 MG TAB PO SCH ×2 (07:50→13:22)
[2023-02-22] MEDS: LOSARTAN POTASSIUM 50 MG TAB PO SCH (07:50)
[2023-02-22] MEDS: amLODIPine BESYLATE 5 MG TAB PO SCH (07:50)
[2023-02-22] MEDS: BUMETANIDE 1 MG TAB PO SCH (07:51)
[2023-02-22] MEDS: AMIODARONE 200 MG TAB PO SCH (07:51)
[2023-02-22] MEDS: APIXABAN 5 MG TABLET PO SCH (07:52)
[2023-02-22] MEDS: FLUTICASONE/VILANTEROL 100/25MCG 14 PUFFS/INHALER INH SCH (07:53)
[2023-02-22] MEDS ORDERED: METOPROLOL SUCC 50MG EXT REL TAB PO SCH (09:00)
--- NOTE | 2023-02-22 10:44 | Palliative Family Discussion ---
Date of Service February 22, 2023 Patient Directed Conference Time of [id number] - [id number] Participants: Chasidy Atkins DNP Patient participation: unable/not decisionally intact Patient Support System: daughter Stacey/[employer] Other Healthcare Provider Participation: None Meeting Location: teleconference with Stacey Advanced Directive available: Yes If yes, descriptors: Stacey is clear pt and family desire a comfort focused plan of care. 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 She tells me there are numerous discussions in chart reaffirming this wish, and pt has consistently declined aggressive, invasive or escalating care. She is amenable to medical mgt but nothing beyond that. Stacey states they came to hospital for IV Lasix, to help reduce fluid volume overload but she very much perceives that despite having conveyed this preference and goal with clear boundaries of do not be aggressive, no Fonseca, no testing/imaging for things we already know about etc., these unwanted things were nevertheless done. Stacey perceives there was no respect for their wishes and goals/preferences. She wanted some gently Lasix diuresis to improve the distress from volume overload, then return to [facility], instead she feels pt was aggressively diuresed leading to dehydration then Fonseca placed and echo was done against her wishes then UTI developed and patient has steadily declined with worsening mental status. She states she advised staff pt sundowns and this is noted on the white board in her room but there was little done to support sundowning symptoms and pt distress escalated. Overall Stacey is very upset with perception that their goals and wishes were not listened to and care they did not want was done. She feels she "was explicitly clear about a goal of comfort from when pt arrived in hospital but there was no effort made to assure this through the admission." She states she wants pt dc back to [facility] with addition of hospice. A family meeting was held for RUTHY HANSEN. This meeting was necessary for determining the appropriate course of treatment. Topics of Discussion Topics of Discussion: 1. 88yo patient with worsening HF, fluid vol overload, complicated by chronic e coli in urine now with e coli UTI d/t Fonseca (per dtr) and worsening MS + sundowning + agitation. 2. In prior documented discussion which Stacey reaffirms today, pt had a very clear understanding of her heart disease, knew it was fairly advanced and desired that the focus was on her QOL and comfort, therefore recommendations at this point should not include discussions about the procedure type she does not want but rather focus on interventions or supportive resources that provide more care and support for symptom management and quality of life. 3. Stacey frustrated by perception that in spite of being very clear about comfort as the goal, escalating regimen, medications, interventions and testing were done which ultimately make no difference in the comfort of this patient, and Stacey's background in nursing also allow her to discern what it needed and not needed. She also shared an poor experience when her father was admitted and ultimately during the admission. She feels that healthcare no longer focuses on the patient as a human being but as an object or disease entity. She feels we did not pay attention to the things they expressed as mattering the most nd we did not properly/thoroughly review the chart because meds and interventions (ex given: Bumex, Fonseca) that patient has historically had issues with were again ordered despite requests not to do so. Other Content of Meetin. Opportunity given for participants to speak and ask questions. 2. Participants were assured of attention to patient comfort. Reassurance provided. 3. We spoke about her goals for pt. She wants pt comfortable and free of distress but not necessarily "stop everything," but rather a more middle of line treat what's treatable and fix what's fixable in a gentle, non invasive way to make sure she is as comfortable as she can be ie gentle IV diuresis when needed. She understands as disease progreses there will be a point at which pt may not be able to tolerate her meds and then those can be stopped as they would no longer be offering a meaningful beenfit. 4. Support was provided for informed, good-evie decisions. 5. Emotions expressed by family were acknowledged and addressed. 6. We spoke about adding hospice to her care and returning to [facility]. We discussed the goals of hospice as a patient service and the goals of care; we discussed EOL trajectories and transitions krista the emotional impact of realizing mortality as a concrete reality from prior abstract considerations. Pt was reassured that no matter where they are along this trajectory, they are not alone - their medical team will remain by their side through their journey. Discussed the pros/cons of accepting help when especially weakened and distressed by pain-which would also help provide relief/decrease caregiver burden/strain.I provided education about the hospice benefit: an interdisciplinary program offered by nurses, nurses aides, social workers, chaplains and a claim review medical director for patients with a terminal condition and a life expectancy of less than 6 months. This is covered by Medicare at 100%/no out of pocket expense to patient and all meds/supplies needed by patient for the reason they are on hospice are paid for/covered by hospice. The goal is assure quality of life of the patient in their home setting (home, care home, inpatient hospice setting) by providing symptoms management, psychosocial and spiritual support. However, they cannot offer 24 hours care and if the family is unable to provide that care, they will have to consider personal care with out of pocket cost vs. care home placement. We discussed the goals of hospice as a patient service and the goals of care; we discussed EOL trajectories and transitions krista the emotional impact of realizing mortality as a concrete reality from prior abstract considerations. Pt was reassured that no matter where they are along this trajectory, they are not alone - their medical team will remain by their side through their journey. Discussed the pros/cons of accepting help when especially weakened and distressed by pain-which would also help provide relief/decrease caregiver burden/strain. 7. Plan of Care: Comfort Care Discharge Summary & Plan of Care For [facility]/SNF/PCH/RETIREMENT Patient Name: Ruthy Hansen Comfort plan of care agreed upon by: derrick Stacey, Dusty Atkins/PalliativeBetzaida/primary med, Dusty Peralta CM Discussed with Patient/Family on: today see above time frame Copy of this plan will be/has been given to:send with pt to [facility] Comfort plan of care parameters: 1. Patient/Family want hospice added to their care. 2. NO rehab/PT/OT 3. Comfort focused care. NO fonseca. NO aggressive diuresis. Use Lasix IV gently as needed to improve fluid overload. DO NOT USE BUMEX. DO NOT PERFORM IMAGING/ECHOs/ETC. 4. NO escalation of care: do not increase oxygen, escalate therapies, etc. The focus is on comfort, please assure this is accomplished with aggressive symptom management (i.e. relief of dyspnea, pain, etc.) 5. Return to hospital after d/w Stacey/to determine need and which facility to go to for the care Stacey feels may be needed 6. NO labs, imaging, surgery 7. Oral intake as desired for comfort and pleasure: NO dietary restriction 8. If difficulty urinating/commode/bedpan, ok to place PureWick for comfort/hygiene/skin protection. ABSOLUTELY NO FONSECA PER STACEY 9. NO: calorie counts, artificial nutrition, feeding tubes or IV fluids Medications to continue are noted on discharge summary from Dr Musa. NO MED CHANGES WITHOUT DIRECT INVOLVEMENT OF DAUGHTER STACEY WHO IS ALSO A RETIRED RN Provider to contact if any questions about comfort plan of care: Hospice Boat Canvas Maker Installer or designee Time Involved in Meeting: I spent 95 minutes overall addressing this case: 15 in medical data review/discussion with referring provider(s) and/or preparation for the visit 00 in direct interaction with the patient - consult done yesterday/see my consult note 30 Advance Care Planning/Goals of Care discussions as detailed above in note (must be >16min) 25 in subsequent review and synthesis of assessment and plan 25 in communicating with other providers regarding the patient's case: hospitalist, care mgt, nursing Thank you for allowing us to participate in the ongoing care of this patient. Please don't hesitate to call or page with any additional concerns. Dr. Chasidy Atkins DNP Director, Palliative Care
--- NOTE | 2023-02-22 11:47 | Discharge Summary ---
Date of Service February 22, 2023 Admission HPI Per Admitting Provider Ruthy is an 88 year old female with a PMH significant for vertigo, hypertension, thyroidectomy, asthma/COPD on chronic 4L NC, atrial fibrillation on Eliquis, rheumatoid arthritis, aortic stenosis, and heart HFpEF who was sent to the [facility] ED via EMS from [facility] for acute onset of SOB while trying to stand for breakfast this morning. She was noted to be mildly hypertensive at 162/91 but was otherwise stable, including stable on her baseline 4L NC. Labs were significant for an initial high sen trop of 37 --->39 on 2 hour repeat,, BNP of 874 (down from 1151 on 12/19), and full respiratory biofire negative. Chest xray was read as 1. Cardiomegaly with pulmonary vascular congestion. 2. No airspace consolidation or large pleural effusion is identified.. The patient was given 40 mg IV Lasix in the ED with initial plans for discharge back to [facility]. While the patient was being lifted into a sitting position she suddenly became tachycardic with HR in the 140's and hypotensive at 70/49. Review of the patient's tele monitoring shows aifb-RVR, she had been in NSR on initial ECG in the ED. Prior to admission the patient was given a 500 mL NSS bolus. At the time of the exam the patient was lying in bed in no acute distress. She was still in afib RVR with HR in the 120-130's with a BP of 81/58. She is mentating well and currently denies any complaints. She states that she has been a bit more weak than normal over the last few days and did not feel like going to breakfast this am. I spoke with the staff at [facility]. They explain that the patient has been getting progressively more SOB, especially with exertion over the past 3-4 days. This am they had her ambulate in the [place]man while on her baseline 6L NC with exertion and she was desaturating into the 60's on SpO2 monitoring. They explain that she only had her Levothyroxine prior to EMS arrival. The patient has a living will and is a DNR/DNI. She currently denies chest pain, SOB, palpitations, abd pain, nausea, vomiting, diarrhea, dysuria, hematuria, increased urinary frequency, and recent trauma. The patient was given a dose of Ceftriaxone prior to admission for possible UTI. Please refer to Dr. Ibrahim's attestation for any changes to the treatment plan Admission Exam Per Admitting Provider General: In no acute distress, stated age, non-toxic appearing HEENT: Normocephalic, atraumatic, no scleral icterus, pupils around round, symmetrical, and reactive to light, moist mucus membranes, trachea midline, no thyromegaly Chest/Pulm: No respiratory distress, symmetrical chest expansion, crackles noted throughout Cardiac: tachycardic rate, irregular rhythm, 3/6 systolic murmur noted Abdomen: Negative for ascites and bruising, normoactive bowel sounds, soft, non- tender to palpation throughout : Patient with Fonseca catheter in place from the ED currently draining 700 cc of clear, yellow urine. Musculoskeletal: Symmetrical and without signs of acute trauma, upper and lower extremities with full ROM, no atrophy, spasticity, or flaccidity Extremities: Radial, dorsalis pedis, and posterior tibial pulses are intact and symmetrical, 1+ edema noted in the BL LE's Skin: Warm, dry, no rashes , lesions, or scars noted Neuro: Alert and oriented to person and place, no focal defects, no tremors noted Psych: No acute distress, calm and cooperative during the exam Principal Diagnosis Atrial fibrillation with rapid ventricular response Severe aortic stenosis with poor tolerance to rapid A-fib Hypotension Congestive heart failure with preserved ejection fraction Chronic respiratory failure, requiring 4 L of oxygen at rest and 6 L on exertion UTI Discharge Exam General: Awake, conversant Heart: S1, S2/regular rate and rhythm, 3/6 systolic murmur best heard in the second intercostal space Lungs: Clear to auscultation bilaterally. Normal effort Abdomen: Soft/nontender/nondistended. No hepatosplenomegaly Extremities: No clubbing/cyanosis. No edema Behavior: Appropriate, cooperative Discharge Data Allergies Allergy/AdvReac Type Severity Reaction Status Date / Time bee venom protein (honey bee) Allergy Intermediate HIVES Verified 01/20/22 13:29 oxycodone Allergy Unknown Unknown Verified 01/20/22 13:29 Sulfa (Sulfonamide Allergy Unknown MOUTH Verified 01/20/22 13:29 Antibiotics) SWELLED/HIVES TO SULFA DRUGS, chemical hepatitis gabapentin Allergy Rash Verified 01/20/22 13:29 nitrofurantoin AdvReac Severe CAUSES Verified 01/20/22 13:29 HEPATITUS hydromorphone AdvReac Intermediate HALLUCINATI Verified 01/20/22 13:29 ONS Consultations 02/19/23 11:22 ED Decision to Admit Stat 02/19/23 16:02 Consult Cardiology Routine 02/20/23 16:35 Consult Palliative Care Routine Ordered Studies 02/19/23 11:10 CT for pulmonary embolism PE [CT angio chest PE protocol] Stat Hospital Course (1) Atrial fibrillation with RVR: -Patient likely went into afib RVR due to preload reduction from 40 mg IV lasix in the ED as the patient has known Aortic stenosis, did not have her am Metoprolol on the day of admission, and has a mag level of 1.8 Due to her underlying aortic stenosis, she has poor tolerance to rapid A-fib She is now in sinus rhythm Plan is to continue amiodarone 400 mg p.o. twice daily for 7 days, then reduce to 200 mg once daily Continue anticoagulation Patient has tachybradycardia syndrome and does not want to pursue pacemaker Public Information Officer on board who recommended palliative care (2) Aortic stenosis: Patient has severe aortic stenosis Public Information Officer on board recommended palliative care Likely contributing to her poor tolerance of A-fib with RVR Patient does not want surgery or even TAVR. Continue conservative management Patient and family wish to pursue comfort care measures (3) Hypotension: -Became hypotensive after going into afib RVR -Likely due to her unstable arrhythmia -BP is currently stable Blood pressure is rather high since her home medications were held She was restarted on her oral home medications including amlodipine and losartan (4) (HFpEF) heart failure with preserved ejection fraction: -Patient had been stable on her baseline 4L NC at rest while in the ED -Has a hx of difficulty with controlling volume status, is on BID PO Bumex Daughter says that the p.o. Bumex has never worked. She wants it discontinued. Discontinued Bumex. (5) Abnormal urinalysis: -Urine culture growing E. coli Patient is confused today and her white count is elevated. Discharged on p.o. Keflex to complete the course Will treat her for UTI since the clinical picture fits the diagnosis (6) Hypertension: -. Resumed amlodipine and losartan Better controlled today (7) Chronic respiratory failure with hypoxia, on home O2 therapy: -Currently stable on her 4L NC at rest, uses 6L NC with exertion -Staff at [facility] reported increased hypoxia this am into the 60's with exertion on 6L NC -Volume control is difficult with this patient as she frequently goes into CHF exacerbations but is also high risk for increased diuresis with her moderate -Continue prn O2 -Monitor volume status closely -Incentive spirometry, flutter therapy -Continue home breathing treatments (8) Hypothyroidism: -Continue levothyroxine (9) CAD (coronary artery disease): -Denies chest pain -Continue aspirin (10) Demand ischemia: Elevated troponin is most likely secondary to demand ischemia with severe aortic stenosis, rapid A-fib, transient hypotension. Not acute coronary syndrome. Plan The plan is for the patient to go to SNF with comfort measures. This has been arranged by palliative care and case management. Total Time Total Time Spent Total Time Spent (In Minutes): 35 Discharge Plan Discharge Items Patient Disposition: Personal Snf Reason For Visit: AFIB RVR, HYPOTENSION Discharge Diagnosis: Atrial fibrillation with rapid ventricular response Severe aortic stenosis with poor tolerance to rapid A-fib Hypotension Congestive heart failure with preserved ejection fraction Chronic respiratory failure, requiring 4 L of oxygen at rest and 6 L on exertion UTI Activity: Per Instructions section Non-emergency contact: Primary Care Provider Call non-emergency contact if: you have any medication questions [facility] [Primary Care Provider] - Diet: Regular and Other - See Diet Comment Diet Comment: No dietary restrictions. Oral intake as desired for comfort and pleasure Addtl Attending Provider Instructions: Comfort Care Discharge Summary & Plan of Care For Senior Care/SNF/[facility] Patient Name: Ruthy Vaughn Comfort plan of care agreed upon by: derrick Mustafa, Dusty Atkins/PalliativeBetzaida/primary medDusty CM Discussed with Patient/Family on: today see above time frame Copy of this plan will be/has been given to:send with pt to [facility] Comfort plan of care parameters: 1. Patient/Family want hospice added to their care. 2. NO rehab/PT/OT 3. Comfort focused care. NO fonseca. NO aggressive diuresis. Use Lasix IV gently as needed to improve fluid overload. DO NOT USE BUMEX. DO NOT PERFORM IMAGING/ECHOs/ETC. 4. NO escalation of care: do not increase oxygen, escalate therapies, etc. The focus is on comfort, please assure this is accomplished with aggressive symptom management (i.e. relief of dyspnea, pain, etc.) 5. Return to hospital after d/w Stacey/to determine need and which facility to go to for the care Stacey feels may be needed 6. NO labs, imaging, surgery 7. Oral intake as desired for comfort and pleasure: NO dietary restriction 8. If difficulty urinating/commode/bedpan, ok to place PureWick for comfort/hygiene/skin protection. ABSOLUTELY NO FONSECA PER STACEY 9. NO: calorie counts, artificial nutrition, feeding tubes or IV fluids Medications to continue are noted on discharge summary from Dr Musa. NO MED CHANGES WITHOUT DIRECT INVOLVEMENT OF DAUGHTER STACEY WHO IS ALSO A RETIRED RN Provider to contact if any questions about comfort plan of care: Hospice Medical Pathology Teacher or designee Pending Studies at Discharge: No Stand-Alone Forms: My [employer], Smoking Cessation Skilled Items Patient informed of condition?: Yes DNR: Yes Discharge Level of Care: Other Communicable Disease: No Discharge Prognosis: Stable Lines: None Urinary Catheter: No Medications and DC Order Prescriptions: New cephalexin 500 mg capsule 500 mg PO BID 5 Days Qty: 10 0RF amiodarone 200 mg Tablet 400 mg PO BIDM Qty: 30 0RF Rx Instructions: 400 mg p.o. twice daily for 7 days then 200 mg once daily Continued metoprolol succinate 100 mg tablet extended release 24 hr 100 mg PO QAM Qty: 90 3RF fluticasone propion-salmeterol [Advair Diskus] 100-50 mcg/dose blister with device 1 inh inhalation BID Qty: 60 3RF atorvastatin 20 mg tablet 20 mg PO HS Qty: 90 3RF sertraline 100 mg tablet 150 mg PO PM Qty: 135 3RF (DME) Oxygen Home Liters Per Minute See Dose Instructions .ROUTE .MEDSUPPLY Qty: 1 0RF Dose Instruction: As directed Rx Instructions: Portable concentrator due to arthritis and difficulty with changing the regulators. Also chronic disc disease and back pain make carrying current tanks unmanageable. (DME) Flutter Valve Device See Rx Instructions .ROUTE .MEDSUPPLY Qty: 1 0RF Rx Instructions: Use 2-3 times daily or as needed. Lifetime need. acetaminophen 500 mg tablet 500 mg PO Q4H MDD 3gm/24h PRN (Reason: pain/fever) ondansetron HCl 4 mg tablet 4 mg PO Q6H PRN (Reason: N/V) cholecalciferol (vitamin D3) [Vitamin D3] 1,000 unit Tablet 1,000 unit PO QAM docusate sodium 100 mg capsule 100 mg PO QPM aspirin 81 mg Tablet,Delayed Release (Dr/Ec) 81 mg PO QAM omega 4-cup-api-fish oil [Fish Oil] 1,000 mg (120 mg-180 mg) Capsule 1 cap PO QAM ascorbic acid (vitamin C) 500 mg Capsule 500 mg PO QAM (DME) Oxygen Home Liters Per Minute See Rx Instructions .Route Qty: 4 0RF Rx Instructions: As directed cranberry 400 mg Capsule 400 mg PO BID Rx Instructions: administer with a meal diphenhydramine HCl [Benadryl] 25 mg Capsule 25 mg PO HS Qty: 30 0RF thiamine HCl (vitamin B1) 100 mg Tablet 100 mg PO BID Qty: 60 0RF melatonin 3 mg Tablet 3 mg PO HS Qty: 30 0RF Mucinex DM 30-600 mg Tablet Extended Release 12 Hr 1 tab PO Q12H PRN (Reason: Congestion) PreserVision AREDS-2 250-90-40-1 mg Capsule 1 tab PO BID albuterol sulfate [Ventolin HFA] 90 mcg/actuation HFA aerosol inhaler 2 inh inhalation Q4H PRN (Reason: Wheezing) Rx Instructions: USE 2 INHALATIONS EVERY 4 HOURS NEEDED buspirone 5 mg tablet 5 mg PO TID lidocaine 4 % Adhesive Patch,Medicated 1 patch TOPICAL DAILY MDD Please remove at bedtime docusate sodium 100 mg Capsule 100 mg PO BID PRN (Reason: Constipation) amoxicillin 250 mg Capsule 1,500 mg PO .1H BEFORE PROCEDURE Rx Instructions: dental clotrimazole [Antifungal (clotrimazole)] 1 % Cream 1 applic TOPICAL DAILY PRN (Reason: rash) meclizine 25 mg Tablet,Chewable 25 mg PO BID PRN (Reason: Dizziness) diclofenac sodium 1 % Gel See Rx Instructions .ROUTE .COMPLEX Rx Instructions: Apply topically to affected areas three times daily as needed for pain levothyroxine 125 mcg tablet 125 mcg PO DAILY vitamin E 268 mg (400 unit) Capsule 268 mg PO DAILY Eliquis 2.5 mg tablet 2.5 mg PO Q12H losartan 50 mg Tablet 50 mg PO BID Qty: 60 0RF amlodipine [Norvasc] 5 mg Tablet 5 mg PO BID Qty: 60 0RF Discontinued bumetanide 0.5 mg tablet 0.5 mg PO BID Discharge Orders: Discharge Order (Routine); Ordered 02/22/23 Ordered By: Rashida Musa Admission Data Admit Date/Time: 02/19/23 11:17 Attending Provider: Rashida Musa Admit Provider: Joey Yang Primary Care Provider: Cas VasquezAriadNEXT Other Providers: Rafael Ibrahim; Ventura Monroe; Chasidy Atkins Other Interventions: Discharge Summary Assessment (RN) Last Done: 02/22/23 12:06 Coding Level of Care Code 20183 INP/OBS DISCH >30 MIN Diagnoses Atrial fibrillation with RVR I48.91 Aortic valve stenosis, etiology of cardiac valve disease unspecified I35.0 Cardiac valve disease etiology: etiology unspecified Hypotension I95.9 Acute on chronic heart failure with preserved ejection fraction I50.33 Heart failure chronicity: acute on chronic Abnormal urinalysis R82.90 Hypertension I10 Chronic respiratory failure with hypoxia, on home O2 therapy J96.11; Z99.81 Hypothyroidism E03.9 CAD (coronary artery disease) I25.10 Demand ischemia I24.89
[2023-02-22] MEDS: cefTRIAXone SODIUM 1,000 MG in DEXTROSE 5 % MINI-B 50 ML IV SCH (13:22)
== END 2023-02-22 15:51 | disposition hospice, home (50) | DRG 309 ==
LOC: ED 07:55 → SUATTDRO 11:17 → 2S 11:17
DX: E03.9 Hypothyroidism, unspecified; Z79.82 Long term (current) use of aspirin; I13.0 Hypertensive heart and chronic kidney disease with heart failure and stage 1 through stage 4 chronic kidney disease, or unspecified chronic kidney disease; Z79.890 Hormone replacement therapy; J96.11 Chronic respiratory failure with hypoxia; I35.0 Nonrheumatic aortic (valve) stenosis; I50.32 Chronic diastolic (congestive) heart failure; Z66 Do not resuscitate; I27.20 Pulmonary hypertension, unspecified; J44.9 Chronic obstructive pulmonary disease, unspecified; B95.2 Enterococcus as the cause of diseases classified elsewhere; I49.5 Sick sinus syndrome; Z98.1 Arthrodesis status; Z99.81 Dependence on supplemental oxygen; I24.89 Other forms of acute ischemic heart disease; N39.0 Urinary tract infection, site not specified; Z88.2 Allergy status to sulfonamides; Z51.5 Encounter for palliative care; I48.91 Unspecified atrial fibrillation; Z83.3 Family history of diabetes mellitus; N18.9 Chronic kidney disease, unspecified; I95.89 Other hypotension